=== PATIENT | male | born 1950 | race Caucasian/White ===

== ENCOUNTER 2016-11-29 10:49 | Inpatient (IN) | payer MEDICARE, OTHER ==
[2016-11-29] MEDS ORDERED: methylPREDNISolone 125 MG* 2 ML VIAL IV ONE (10:54)
[2016-11-29] MEDS ORDERED: Albuterol/Ipratropium NEB.SOL* Albuterol 2.5 MG/Ipratropium 0.5 MG 3 ML INH ONE (10:54)
--- NOTE | 2016-11-29 11:20 | RAD ---
INDICATION: Shortness of breath in a patient with COPD COMPARISON: Most recent comparison chest x-rays dated September 18, 2016 TECHNIQUE: Single AP portable view of the chest was obtained. FINDINGS: Image quality is compromised due to the relative inferiority of a portable chest x-ray. Again seen is a left upper chest cardiac pacemaker with 2 leads overlying the heart. The heart and mediastinum exhibit normal size and contour. Relative to the previous chest x-ray the pulmonary vasculature appears mildly engorged and indistinct. There is no evidence of a large pleural effusion. Visualized bones are normal for the patient's age. IMPRESSION: Small interval increase in appearance of engorged pulmonary vasculature could be seen in the setting of exacerbation of congestive heart failure.
[2016-11-29 11:31] LABS: FIO2 100
[2016-11-29 11:35] LABS: PCO2 Arterial 42 mmHg (35-45)
[2016-11-29] MEDS: Diltiazem IV* 5 MG/ML 5 ML VIAL (for loading dose/IV Push) (25 MG) IV SLOW PU ONE ×2 (11:39→14:45)
[2016-11-29 11:50] LABS: Hematocrit 34 % (42-52); Hemoglobin 9.5 g/dl (14.0-18.0); Mean Corpuscular HGB Conc 28 g/dl (31-36); Mean Corpuscular Hemoglobin 19 pg (27-31); Mean Platelet Volume 9 um3 (7.4-10.4); Red Blood Count 5.02 10^6/ul (4.0-5.4); Red Cell Distribution Width 21 % (10.5-15); White Blood Count 7.7 10^3/ul (3.5-10.8)
[2016-11-29 11:51] LABS: Comments Flag Yes
[2016-11-29 11:53] LABS: Mean Corpuscular Volume 68 fL (80-94)
[2016-11-29 11:54] LABS: Albumin 3.8 g/dL (3.2-5.2); BUN/Creatinine Ratio 18.2 (8-20); C Reactive Protein 4.13 mg/L (< 5.00); Calcium 8.7 mg/dL (8.6-10.3); EGFR African American 111.1 (>60); EGFR Non-African American 86.4 (>60); Globulin 2.4 g/dL (2-4); Total Bilirubin 0.7 mg/dL (0.2-1.0); Total Protein 6.2 g/dL (6.4-8.9)
[2016-11-29 11:56] LABS: Troponin I 0.02 ng/mL (<0.04)
[2016-11-29] MEDS ORDERED: Furosemide IV* 10 MG/ML 2 ML VIAL (20 MG) IV ONE (12:01)
[2016-11-29] MEDS ORDERED: Docusate CAP* 100 MG PO PRN (13:53)
[2016-11-29] MEDS ORDERED: Prochlorperazine TAB* 10 MG PO PRN (13:53)
[2016-11-29] MEDS ORDERED: LORazepam TAB(*) 1 MG PO PRN (13:53)
[2016-11-29] MEDS ORDERED: Cyclobenzaprine TAB* 10 MG PO PRN (13:53)
[2016-11-29] MEDS ORDERED: Ondansetron TAB* 4 MG PO PRN (13:53)
--- NOTE | 2016-11-29 13:57 | CONSULT ---
Subjective Date of Service: 11/29/16 Interval History: Date of admission and consult 11/29/2016 Service: Heme/Onc Dr. Whitmore Primary Care Physician: Marcin Watt MD Assembler Bonding: Dr. Cain CC: dyspnea Reason for consult: CHF and AFib HPI Mr. 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 He has been off of revlimid recently. He has had progressive dyspnea and weight gain for about 3 weeks. He has had to go to using oxygen continuous. Device check 11/19/2016 showed more frequent rapid PAfib episodes during that time period. He was evaluated in the ER and found with rapid atrial fibrillation rate 150 bpm. He converted to SR with PAC's after 20 mg IV diltiazem then went back into rapid atrial fibrillation. He had what he describes as a good response to 20 mg IV lasix. His HR is currently back in Afib rate 140 bpm and he has no chest discomfort, lightheadedness and is feeling well. Chronic lower extremity edema. Had been on lasix in the past Allergies: Lyrica 10/12/14 Ibuprofen 10/12/14 allergy list reviewed on 08/27/2016 PMH: Medical Problems: Coronary Artery Disease (CAD) - (09/2013) Afib and a non ST elevation ND in September 2013 and underwent a drug eluting stent placement in the proximal LAD. He had an increase in his weight with peripheral edema, orthopnea. He was sent for a CT scan but couldn't lie flat and was found to be in Afib with a rapid ventricular response and CHF. He was treated with IV Lasix, oxygen and Diltiazem with slowing of his heart and improvement in his symptoms, converted to sinus rhythm, started on Amiodarone because of converting to sinus rhythm. Atrial Fibrillation Diabetes Type II HFpEF GI Bleed - (06/2013) GI bleed in [place] multiple myeloma - (2013) multiple myeloma, undergoing chemotherapy with Dr. Whitmore. Pulmonary Embolism - (06/2016) diagnosed by CT Surgical Hx: Hip Replacement - (10/2014) En[employer]ence [employer]iest[employer] MRI compatible - Dr. Low [facility] [place] 09/05/14 Dual-Chamber: [id number] Serial # [id number] Hospitalizations: Pneumonia - (06/2014) hypotension, respiratory failure, intubation. Afib with rapid ventricular response, NSTEMI. FH: non-contributory SH: Marital: Single.Lives With: Male Partner.Occupation: Disabled. Personal Habits: Smoking: Patient is a former smoker - Quit in June 2012.Alcohol: Denies alcohol use.Drug Use: Denies Drug Use.Daily Caffeine: Does Not Consume Caffeine Medications Active Medications: Amiodarone HCl (Cordarone Tab*) 100 mg PO 0900 [facility] Atorvastatin Calcium (Lipitor*) 10 mg PO QPM [facility] Last Admin: 11/29/16 17:21 Dose: 10 mg Cyclobenzaprine HCl (Flexeril Tab*) 10 mg PO BID PRN PRN Reason: PAIN - BACK Docusate Sodium (Colace Cap*) 200 mg PO BID PRN PRN Reason: CONSTIPATION Furosemide (Lasix Iv*) 40 mg IV BID [facility] Last Admin: 11/29/16 17:54 Dose: 40 mg Glipizide (Glucotrol Xl*) 5 mg PO 0900 [facility] Lorazepam (Ativan Tab(*)) 1 mg PO DAILY PRN PRN Reason: ANXIETY Magnesium Oxide (Magox 400 Tab*) 800 mg PO 0900 [facility] Metformin HCl (Glucophage*) 500 mg PO BID [facility] Metoprolol Succinate (Toprol Xl Tab*) 150 mg PO BID [facility] Last Admin: 11/29/16 17:54 Dose: 150 mg Metoprolol Tartrate (Lopressor Iv*) 5 mg IV Q6H PRN PRN Reason: TACHYCARDIA Ondansetron HCl (Zofran Tab*) 4 mg PO Q8HR PRN PRN Reason: NAUSEA Pantoprazole Sodium (Protonix Tab (Nf)) 40 mg PO 0900 [facility] Pharmacy Profile Note (Coumadin Daily Reminder*) 1 note FOLLOW UP 1700 [facility] Last Admin: 11/29/16 16:31 Dose: 1 note Prochlorperazine (Compazine Tab*) 10 mg PO DAILY PRN PRN Reason: NAUSEA Sertraline HCl (Zoloft*) 100 mg PO 0900 [facility] Valacyclovir HCl (Valtrex 500 Mg (*)) 1,000 mg PO QPM [facility] PRN Reason: Protocol Last Admin: 11/29/16 17:21 Dose: 1,000 mg Warfarin Sodium (Coumadin Tab(*)) 3 mg PO DAILY@1700 [facility] PRN Reason: Protocol Last Admin: 11/29/16 16:30 Dose: 3 mg Home Medications: Pantoprazole TAB (NF) [Protonix TAB (NF)] 40 mg PO 0900 10/23/13 [History Confirmed 11/29/16] Amiodarone TAB* [Cordarone Tab*] 100 mg PO 0900 01/24/14 [History Confirmed ] aspirin Ondansetron TAB* [Zofran Tab*] 4 mg PO Q8HR PRN 01/24/14 [History Confirmed ] Prochlorperazine TAB* [Compazine Tab*] 10 mg PO DAILY PRN 01/24/14 [History Confirmed 11/29/16] ValACYclovir (*) [Valtrex 500 mg (NF)] 1,000 mg PO QPM 01/24/14 [History Confirmed 11/29/16] glipiZIDE TAB.XL* [Glucotrol Xl*] 5 mg PO 0900 01/24/14 [History Confirmed 11/29] metFORMIN* [Glucophage*] 500 mg PO BID 01/24/14 [History Confirmed 11/29/16] Docusate CAP* [Colace Cap*] 200 mg PO BID PRN 03/08/14 [History Confirmed ] Vitamin E CAP* 400 unit PO 0900 06/24/14 [History Confirmed 11/29/16] LORazepam TAB(*) [Ativan 1 MG TAB (*)] 1 mg PO DAILY PRN 09/02/14 [History Confirmed 11/29/16] Calcium 500 mg PO 0900 09/05/14 [History Confirmed 11/29/16] Sertraline* [Zoloft*] 100 mg PO 0900 09/05/14 [History Confirmed 11/29/16] Cyclobenzaprine TAB* [Flexeril 10 MG TAB*] 10 mg PO BID PRN 11/29/16 [History Confirmed 11/29/16] Iron Polysaccharide Complex- [Iferex 150 Forte] 1 cap PO BID 11/29/16 [ History Confirmed 11/29/16] Magnesium 1,000 mg PO 0900 11/29/16 [History Confirmed 07/21/17] Metoprolol Succinate XL TAB* [Toprol XL TAB*] 75 mg PO BID 11/29/16 [History Confirmed 11/29/16] warfarin per Dr. Whitmore Review of Systems - Measurements Intake and Output: Intake and Output Last 24 Hours 11/27/16 11/28/16 11/29/16 11/30/16 06:59 06:59 06:59 06:59 Weight 278 lb - Review of Systems Constitutional Symptoms: Positive: Weight Gain, Fatigue Dermatology: Negative: Rash, Skin Lesions, Skin Lumps HEENT: Negative: Normal, Change in Hearing, Vertigo Eyes: Negative: Change in Vision, Double Vision Thyroid: Positive: Weight Gain Negative: Goiter, Thyroid Nodule, Cold Intolerance, Heat Intolerance, Sweatiness, Tremor, Frequent Defecation, Constipation, Palpitations, Primary Hypothyroidism, Primary Hyperthyroidism, Weight Loss Pulmonary: Positive: Shortness of Breath, Exercise Intolerance, Home Oxygen Negative: Cough, Sputum, Hemoptysis, Wheezing, Respiratory Distress, COPD, Asthma Cardiology: Positive: Shortness of Breath, Swelling of Ankles, Edema Negative: Palpitations, Peripheral Vascular Dis, Faintness, Syncope, Claudication, Paroxysmal Nocturnal Dyspnea, Orthopnea Gastroenterology: Negative: Abdominal Pain, Nausea, Vomiting, Anorexia Genital - Urinary: Negative: Dysuria, Polyuria, Nocturia Musculoskeletal: Negative: Joint Pain, Joint Stiffness, Arthritis Endocrinology: Positive: Obesity Negative: Hyperglycemia, Hypoglycemia, Calluses, Hirsutism, Polydipsia, Polyuria Hematologic/Lymphatic: Positive: Use of Antiplatelet Drugs Negative: Use of Anticoagulant Neurology: Negative: Diplopia, Dizziness, Hx of Stroke\TIA, Hx Seizures Psychiatry: Positive: Weight Change Negative: Unusual Anxiety, Suicidal Ideation Allergic/Immunologic: Negative: Hx Environmental Allergies, Hx Seasonal Allergies, Hx HIV, Immunocompromise, Swollen Glands Lymph Nodes Review of Systems Statement: All other review of systems negative, unless stated above. Objective Vital Signs: Temp Pulse Resp BP Pulse Ox 98 F 95 18 146/70 100 11/29/16 10:56 11/29/16 12:00 11/29/16 12:00 11/29/16 12:00 11/29/16 12:00 Appearance: nad, very pleasant Ears/Nose/Mouth/Throat: Clear Oropharnyx Neck: Trachea Midline, - - uncertain jvp Respiratory: Symmetrical Chest Expansion and Respiratory Effort, Clear to Auscultation Cardiovascular: RRR, - - 1+ edema, 2/6 systolic murmur Abdominal: NL Sounds; No Tenderness; No Distention Extremities: No Clubbing, Cyanosis Skin: No Rash or Ulcers Neurological: Alert and Oriented x 3 Laboratory Results: 11/29/16 11:15 11/29/16 11:15 Total Bilirubin 0.70 mg/dL (0.2-1.0) 11/29/16 11:15 AST 16 U/L (13-39) 11/29/16 11:15 ALT 9 U/L (7-52) 11/29/16 11:15 Alkaline Phosphatase 149 U/L (34-104) H 11/29/16 11:15 CK-MB (CK-2) 1.1 ng/mL (0.6-6.3) 11/29/16 11:15 B-Natriuretic Peptide 482 pg/mL (-100) H 11/29/16 11:15 Total Protein 6.2 g/dL (6.4-8.9) L 11/29/16 11:15 Albumin 3.8 g/dL (3.2-5.2) 11/29/16 11:15 Globulin 2.4 g/dL (2-4) 11/29/16 11:15 Albumin/Globulin Ratio 1.6 (1-3) 11/29/16 11:15 11/29/16 11:15 Troponin I 0.02 Diagnostic Imaging: echocardiogram 08/14/2016, that showed stable mild to moderate aortic stenosis at most, normal left ventricular function with EF 55-60%, grade ll diastolic dysfunction, and concentric hypertrophy of the left ventricle Pacemaker interrogation 11/19/2016: Paroxysmal Afib 11/11-11/19/2016 longest episode 6 hours, kathy success% 55.8, 6 second NSVT cxr today: early vascular congestion EKG Data: ekg 11/29/2016: Rapid atrial fibrilation 148 bpm, minimal rate related st changes 08/27/2016:NSR, LAE Assessment/Plan Mr. 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, multiple myeloma, hx GI bleed , DM, chronic edema and bilateral pulmonary emboli 06/2016 currently on warfarin presents with weight gain and dyspnea accompanied by rapid paroxysmal Afib diagnosed acute diastolic HF exacerbation - Give 40 mg IV lasix BID (ordered), check i/o, weights, uop, bmp, mg replace lytes and adjust diuretics as needed - Increase toprol from 75 to 150 mg PO BID and add 5 mg IV lopressor PRN for rate control - Continue amiodarone 100 mg PO daily - Suspect fluid accumulation pre-dated Afib - If still has intermittent rapid afib despite increased rate control and diuresis may need to consider alternate anti-arrhythmic - Continue warfarin per hematology - Continue statin - Discussed with Dr. Ray who will follow up with patient tomorrow He has been off of revlimid recently. He has had progressive dyspnea and weight gain for about 3 weeks. He has had to go to using oxygen continuous. Device check 11/19/2016 showed more frequent rapid PAfib episodes during that time period. He was evaluated in the ER and found with rapid atrial fibrillation rate 150 bpm. He converted to SR with PAC's after 20 mg IV diltiazem then went back into rapid atrial fibrillation. He had what he describes as a good response to 20 mg IV lasix. His HR is currently back in Afib rate 140 bpm and he has no chest discomfort, lightheadedness and is feeling well. Chronic lower extremity edema. Had been on lasix in the past Allergies: Lyrica 10/12/14 Ibuprofen 10/12/14 allergy list reviewed on 08/27/2016 PMH: Medical Problems: Coronary Artery Disease (CAD) - (09/2013) Afib and a non ST elevation ND in September 2013 and underwent a drug eluting stent placement in the proximal LAD. He had an increase in his weight with peripheral edema, orthopnea. He was sent for a CT scan but couldn't lie flat and was found to be in Afib with a rapid ventricular response and CHF. He was treated with IV Lasix, oxygen and Diltiazem with slowing of his heart and improvement in his symptoms, converted to sinus rhythm, started on Amiodarone because of converting to sinus rhythm. Atrial Fibrillation Diabetes Type II HFpEF
[2016-11-29] MEDS ORDERED: Metoprolol Tartrate IV* 1 MG/ML 5 ML VIAL IV ONE (16:10)
[2016-11-29] MEDS: Warfarin TAB(*) 3 MG PO SCH (16:30)
[2016-11-29 17:13] LABS: Urine Bacteria Absent (Absent); Urine Bilirubin Negative (Negative); Urine Glucose 2+(150 mg/dL) (Negative); Urine Nitrite Negative (Negative)
[2016-11-29] MEDS: ValACYclovir (*) 500 MG TAB PO SCH (17:21)
[2016-11-29] MEDS: Atorvastatin* 10 MG TAB PO SCH (17:21)
[2016-11-29] MEDS: Furosemide IV* 10 MG/ML VIAL (40 MG) IV SCH ×2 (17:54→20:56)
[2016-11-29] MEDS: Metoprolol Succinate XL TAB* 50 MG PO SCH ×2 (17:54→20:56)
[2016-11-29] MEDS ORDERED: Lisinopril TAB* 10 MG PO SCH (18:00)
[2016-11-29] MEDS: Metoprolol Tartrate IV* 1 MG/ML 5 ML VIAL IV PRN (19:29)
--- NOTE | 2016-11-29 20:10 | ED ---
Latasha Contreras Edward, scribed for Alberto Potter MD on 11/29/16 at 1109 . Shortness of Breath - HPI Summary HPI Summary: 66 y/o male BIBA c/o SOB that has become steadily worse for the past 3 days. Patient states he is feeling a little better now. Associated sx: mild CP, nonproductive cough, pitting pedal edema, chills. Denies fever. PMHx DM, AFIB with pacemaker. - History of Current Complaint Chief Complaint: EDAsthma Time Seen by Provider: 11/29/16 10:54 Hx Obtained From: Patient Onset/Duration: Gradual Onset, Lasting Days - 3 days Associated Signs & Symptoms: Cough (Nonproductive), Chest Pain Unrelated to Cough - mild, Chills, Edema - bilateral pedal edema - Allergy/Home Medications Allergies/Adverse Reactions: Allergies Allergy/AdvReac Type Severity Reaction Status Date / Time Ibuprofen Allergy See Comment Verified 01/22/16 17:22 Pregabalin Allergy Swelling Verified 01/22/16 17:22 lyrica Allergy Swelling Uncoded 06/25/16 14:07 Home Medications: Home Medications Cyclobenzaprine TAB* [Flexeril 10 MG TAB*] 10 mg PO BID PRN 11/29/16 [History Confirmed 11/29/16] Iron Polysaccharide Complex- [Iferex 150 Forte] 1 cap PO BID 11/29/16 [ History Confirmed 11/29/16] Lisinopril TAB* [Prinivil TAB*] 10 mg PO QPM 11/29/16 [History Confirmed ] Magnesium 1,000 mg PO 0900 11/29/16 [History Confirmed 11/29/16] Metoprolol Succinate XL TAB* [Toprol XL TAB*] 75 mg PO BID 11/29/16 [History Confirmed 11/29/16] PMH/Surg Hx/FS Hx/Imm Hx Previously Healthy: No Endocrine/Hematology History: Reports: Hx Anticoagulant Therapy, Hx Diabetes, Hx Anemia - HX OF WITH TRANSFUSIONS IN 06/2013, Other Endocrine/Hematological Disorders - multiple myeloma Denies: Hx Thyroid Disease Cardiovascular History: Reports: Hx Congestive Heart Failure, Hx Coronary Artery Disease, Hx Hypertension, Hx Pacemaker/ICD, Hx Syncope, Other Cardiovascular Problems/Disorders - Cardiac cath, dyslipidemia, Respiratory History: Reports: Hx Sleep Apnea - NO CPAP, Other Respiratory Problems/Disorders - HX OF MULTIPLE MYELOMA GI History: Reports: Hx Ulcer - PUD History: Denies: Hx Dialysis, Hx Renal Disease Musculoskeletal History: Reports: Hx Arthritis, Hx Back Problems, Hx Orthopedic Injury - pelvic fracture 01/2014 Sensory History: Reports: Hx Cataracts - RIGHT EYE, Hx Contacts or Glasses - HOME Denies: Hx Deafness, Hx Hearing Aid Opthamlomology History: Reports: Hx Cataracts - RIGHT EYE, Hx Contacts or Glasses - HOME Neurological History: Reports: Other Neuro Impairments/Disorders - HX OF SYNCOPE Psychiatric History: Reports: Hx Anxiety, Hx Depression - anxiety - Cancer History Cancer Type, Location and Year: multiple myeloma Hx Chemotherapy: Yes - last chemo last Friday Hx Radiation Therapy: No Hx Palliative Cancer Treatment: No - Surgical History Surgery Procedure, Year, and Place: cardiac cath/CARDIAC STENT, PACEMAKER, HIP REPLACEMENT Hx Anesthesia Reactions: No - Immunization History Date of Tetanus Vaccine: PT STATES UNSURE Date of Influenza Vaccine: PT STATES UNSURE Infectious Disease History: Yes Infectious Disease History: Reports: Hx of Known/Suspected MRSA - NOSE Denies: Traveled Outside the [place] in Last 30 Days - Family History Known Family History: Positive: Other - mother had circulation problems, father had anginia. - Social History Alcohol Use: Rare Substance Use Type: Reports: None Hx Tobacco Use: Yes Smoking Status (MU): Former Smoker Type: Cigarettes Amount Used/How Often: 1/2 PPD Have You Smoked in the Last Year: No Review of Systems Positive: Chills Eyes: Negative ENT: Negative Positive: Chest Pain - Mild Positive: Shortness Of Breath, Cough Gastrointestinal: Negative Genitourinary: Negative Musculoskeletal: Negative Skin: Negative Neurological: Negative Psychological: Normal All Other Systems Reviewed And Are Negative: Yes Physical Exam - Summary Physical Exam Summary: VITAL SIGNS:~Reviewed. GENERAL:~ Patient is a well-developed and nourished male who is on a BiPAP machine. Patient can speak in full sentences. HEAD AND FACE:~No signs of trauma.~ No ecchymosis, hematomas or skull depressions. No sinus tenderness. EYES:~PERRLA, EOMI x 2, No injected conjunctiva, no nystagmus. EARS:~Hearing grossly intact. Ear canals and tympanic membranes are within normal limits. MOUTH:~Oropharynx within normal limits. NECK:~Supple, trachea is midline, no adenopathy, no JVD, no carotid bruit, no c- spine tenderness, neck with full ROM. CHEST:~Symmetric, no tenderness at palpation LUNGS:~Clear to auscultation bilaterally. Decreased breath sounds bilaterally. Diffuse wheezing. Bilateral crackles at the bases of the lungs. CVS:~Regular rate and rhythm, S1 and S2 present, no murmurs or gallops appreciated. ABDOMEN:~Soft, non-tender. No signs of distention. No rebound no guarding. Bowel sounds are normal. Obese. Positive ventral hernia that is easily reducable. EXTREMITIES:~FROM in all major joints, no cyanosis or clubbing. LE 1+ edema. NEURO:~Alert and oriented x 3. No acute neurological deficits. Speech is normal and follows commands. SKIN:~Dry and warm Triage Information Reviewed: Yes Vital Signs On Initial Exam: Initial Vitals Temp Pulse Resp BP Pulse Ox 97.3 F 61 24 131/88 98 11/29/16 10:50 11/29/16 10:50 11/29/16 10:50 11/29/16 10:50 11/29/16 10:50 Vital Signs Reviewed: Yes Diagnostics - Vital Signs Vital Signs Temp Pulse Resp BP Pulse Ox 11/29/16 10:56 98 F 92 38 164/82 100 11/29/16 10:51 98 F 92 38 159/86 100 11/29/16 10:50 97.3 F 61 24 131/88 98 - Laboratory Result Diagrams: 11/29/16 11:15 11/29/16 11:15 Lab Statement: Any lab studies that have been ordered have been reviewed, and results considered in the medical decision making process. - Radiology CXR Xray Interpretation: Positive (See Comments) - Small interval increase in appearance of engorged pulmonary vasculature could be seen in the setting of exacerbation of congestive heart failure. Radiology Interpretation Completed By: Radiologist - EKG 1 EKG Interpretation: 11:22 - AFIB @ 148 bpm. RVR Course/Dx - Course Assessment/Plan: 66 y/o male BIBA c/o SOB that has become steadily worse for the past 3 days. Patient states he is feeling a little better now. Associated sx : mild CP, nonproductive cough, pitting pedal edema, chills. Denies fever. PMHx DM, AFIB with pacemaker. Test results show slight anemia, Glucose 200 BNP 482, and Lactic acid 2.9, ABD pH 7.5, pCO2 42, pO2 1521, O2 saturation 98 with a BiPAP machine. CXR: a small interval increase in appearance of engorged pulmonary vasculature could be seen in the setting of exacerbation of congestive heart failure. In the ED course the patient had an episode of AFIB with RVR. The patient was given Diltiazem and his HR improved to 70 bpm. The pt continues to be in AFIB which is his baseline. The pt was also given Duoneb and Solumedrol. I believe the patient was having COPD exacerbation and AFIB with RVR. I spoke with Dr. Brown (Oncology) who accepted the pt for admission. The patient is hemodynamically stable, A&Ox3. - Diagnoses Provider Diagnoses: COPD exacerbation, Atrial fibrillation with RVR - Physician Notifications Discussed Care of Patient With: Nilda Amaya Time Discussed With Above Provider: 12:30 Instructed by Provider To: Admit As Inpatient Discharge - Discharge Plan Condition: Stable Disposition: ADMITTED TO [facility] The documentation as recorded by the Latasha wilcox Edward accurately reflects the service I personally performed and the decisions made by me, Alberto Potter MD.
[2016-11-29] MEDS: metFORMIN* 500 MG TAB PO SCH (20:57)
[2016-11-29] MEDS ORDERED: Metoprolol Succinate XL TAB* 25 MG PO SCH (21:00)
[2016-11-30] MEDS: Metoprolol Tartrate IV* 1 MG/ML 5 ML VIAL IV PRN ×2 (01:02→06:37)
[2016-11-30 04:58] LABS: BUN/Creatinine Ratio 21.4 (8-20); Calcium 8.8 mg/dL (8.6-10.3); EGFR African American 84.1 (>60); EGFR Non-African American 65.4 (>60); Magnesium 1.9 mg/dL (1.9-2.7)
[2016-11-30 05:00] LABS: Troponin I 0.03 ng/mL (<0.04)
[2016-11-30] MEDS: Furosemide IV* 10 MG/ML VIAL (40 MG) IV SCH ×2 (08:47→20:15)
[2016-11-30] MEDS: Sertraline* 100 MG TAB PO SCH (08:48)
[2016-11-30] MEDS: CMCS: Pantoprazole TAB (NF) 40 MG TAB PO SCH (08:48)
[2016-11-30] MEDS: metFORMIN* 500 MG TAB PO SCH ×2 (08:48→20:15)
[2016-11-30] MEDS: Magnesium Oxide TAB* 400 MG PO SCH (08:48)
[2016-11-30] MEDS: glipiZIDE TAB.XL* 5 MG PO SCH ×2 (08:49→20:15)
[2016-11-30] MEDS ORDERED: Amiodarone TAB* 200 MG PO SCH (09:00)
[2016-11-30] MEDS ORDERED: glipiZIDE TAB.XL* 5 MG PO SCH (09:00)
--- NOTE | 2016-11-30 09:25 | PN ---
Progress Note - Progress Note Date of Service: 11/30/16 SOAP: Subjective: []A little better today. Does not notice when in a-fib. Has been urinating with Lasix, still feels that has to much fluid. No fevers. Breathing still short and on oxygen. Amiodarone HCl (Cordarone Tab*) 100 mg PO 0900 [facility] Last Admin: 11/30/16 08:43 Dose: 100 mg Atorvastatin Calcium (Lipitor*) 10 mg PO QPM [facility] Last Admin: 11/29/16 17:21 Dose: 10 mg Cyclobenzaprine HCl (Flexeril Tab*) 10 mg PO BID PRN PRN Reason: PAIN - BACK Docusate Sodium (Colace Cap*) 200 mg PO BID PRN PRN Reason: CONSTIPATION Furosemide (Lasix Iv*) 40 mg IV BID [facility] Last Admin: 11/30/16 08:47 Dose: 40 mg Glipizide (Glucotrol Xl*) 5 mg PO BID [facility] Last Admin: 11/30/16 08:49 Dose: Not Given Lorazepam (Ativan Tab(*)) 1 mg PO DAILY PRN PRN Reason: ANXIETY Magnesium Oxide (Magox 400 Tab*) 800 mg PO 0900 [facility] Last Admin: 11/30/16 08:48 Dose: 800 mg Metformin HCl (Glucophage*) 500 mg PO BID [facility] Last Admin: 11/30/16 08:48 Dose: 500 mg Metoprolol Succinate (Toprol Xl Tab*) 150 mg PO BID [facility] Last Admin: 11/29/16 20:56 Dose: 150 mg Metoprolol Tartrate (Lopressor Iv*) 5 mg IV Q6H PRN PRN Reason: TACHYCARDIA Last Admin: 11/30/16 06:37 Dose: 5 mg Ondansetron HCl (Zofran Tab*) 4 mg PO Q8HR PRN PRN Reason: NAUSEA Pantoprazole Sodium (Protonix Tab (Nf)) 40 mg PO 0900 [facility] Last Admin: 11/30/16 08:48 Dose: 40 mg Pharmacy Profile Note (Coumadin Daily Reminder*) 1 note FOLLOW UP 1700 [facility] Last Admin: 11/29/16 16:31 Dose: 1 note Prochlorperazine (Compazine Tab*) 10 mg PO DAILY PRN PRN Reason: NAUSEA Sertraline HCl (Zoloft*) 100 mg PO 0900 [facility] Last Admin: 11/30/16 08:48 Dose: 100 mg Valacyclovir HCl (Valtrex 500 Mg (*)) 1,000 mg PO QPM [facility] PRN Reason: Protocol Last Admin: 11/29/16 17:21 Dose: 1,000 mg Warfarin Sodium (Coumadin Tab(*)) 3 mg PO DAILY@1700 [facility] PRN Reason: Protocol Last Admin: 11/29/16 16:30 Dose: 3 mg Objective: [] Vital Signs Temp Pulse Resp BP Pulse Ox 97.7 F 139 18 121/70 99 11/30/16 07:34 11/30/16 07:34 11/30/16 07:34 11/30/16 07:34 11/30/16 07:34 HEENT - Pale, no oral lesions. SOB in conversation. Decreased BS, no wheezing. RRR and 88 on exam. S1S2 Obease, NT ND Ext +1 edema Neuro AAOx3 gross non focal Assessment: []66 year old with history of myeloma who has responded well to therapy but treatment held in September of this year after several infections. Presents with intermittent a-fib and RVR, CHF Plan: []1. Increase of Metoprolol but still with HR to 142 this am when in a-fib. Will discuss with cardiology. 2. Continued diuresis today and follow BP and CR, Lasix 40 mg po bid. 3. Coumadin, follow INR daily 4. Will plan on staying in house today, possible discharge tomorrow.
[2016-11-30] MEDS: Metoprolol Succinate XL TAB* 50 MG PO SCH ×2 (11:06→20:15)
[2016-11-30 12:12] LABS: BUN/Creatinine Ratio 22.7 (8-20); EGFR African American 72.1 (>60); EGFR Non-African American 56.1 (>60); Potassium 3.7 mmol/L (3.5-5.0)
--- NOTE | 2016-11-30 13:32 | PN ---
Subjective Date of Service: 11/30/16 - SOB is CC Interval History: Pt awoke with a panic attack, responded to IV lopressor (in afib, RVR). Breathing has improved overall since admission. The patient remains unaware when he is in atrial fibrillation. Prior to admission he was having some chest pain, none since admission with diuresis. Medications Active Medications: Amiodarone HCl (Cordarone Tab*) 100 mg PO 0900 [facility] Last Admin: 11/30/16 08:43 Dose: 100 mg Atorvastatin Calcium (Lipitor*) 10 mg PO QPM [facility] Last Admin: 11/29/16 17:21 Dose: 10 mg Cyclobenzaprine HCl (Flexeril Tab*) 10 mg PO BID PRN PRN Reason: PAIN - BACK Docusate Sodium (Colace Cap*) 200 mg PO BID PRN PRN Reason: CONSTIPATION Furosemide (Lasix Iv*) 40 mg IV BID [facility] Last Admin: 11/30/16 08:47 Dose: 40 mg Glipizide (Glucotrol Xl*) 5 mg PO BID [facility] Last Admin: 11/30/16 08:49 Dose: Not Given Lorazepam (Ativan Tab(*)) 1 mg PO DAILY PRN PRN Reason: ANXIETY Magnesium Oxide (Magox 400 Tab*) 800 mg PO 0900 [facility] Last Admin: 11/30/16 08:48 Dose: 800 mg Metformin HCl (Glucophage*) 500 mg PO BID [facility] Last Admin: 11/30/16 08:48 Dose: 500 mg Metoprolol Succinate (Toprol Xl Tab*) 150 mg PO BID [facility] Last Admin: 11/30/16 11:06 Dose: 150 mg Metoprolol Tartrate (Lopressor Iv*) 5 mg IV Q6H PRN PRN Reason: TACHYCARDIA Last Admin: 11/30/16 06:37 Dose: 5 mg Ondansetron HCl (Zofran Tab*) 4 mg PO Q8HR PRN PRN Reason: NAUSEA Pantoprazole Sodium (Protonix Tab (Nf)) 40 mg PO 0900 [facility] Last Admin: 11/30/16 08:48 Dose: 40 mg Pharmacy Profile Note (Coumadin Daily Reminder*) 1 note FOLLOW UP 1700 [facility] Last Admin: 11/29/16 16:31 Dose: 1 note Prochlorperazine (Compazine Tab*) 10 mg PO DAILY PRN PRN Reason: NAUSEA Sertraline HCl (Zoloft*) 100 mg PO 0900 [facility] Last Admin: 11/30/16 08:48 Dose: 100 mg Valacyclovir HCl (Valtrex 500 Mg (*)) 1,000 mg PO QPM [facility] PRN Reason: Protocol Last Admin: 11/29/16 17:21 Dose: 1,000 mg Warfarin Sodium (Coumadin Tab(*)) 3 mg PO DAILY@1700 [facility] PRN Reason: Protocol Last Admin: 11/29/16 16:30 Dose: 3 mg Objective Vital Signs: Temp Pulse Resp BP Pulse Ox 98.3 F 79 77 125/56 100 11/30/16 11:29 11/30/16 11:29 11/30/16 12:00 11/30/16 11:29 11/30/16 11:29 Oxygen Devices in Use Now: Nasal Cannula Appearance: nad, seated with O2 on, very pleasant Eyes: No Scleral Icterus, PERRLA Ears/Nose/Mouth/Throat: Clear Oropharnyx, Mucous Membranes Moist Neck: Trachea Midline, - - uncertain jvp Respiratory: Symmetrical Chest Expansion and Respiratory Effort, - - bs very distant t hroughout. Cardiovascular: RRR, - - 1+ edema, 2/6 systolic murmur Abdominal: NL Sounds; No Tenderness; No Distention - obese. Extremities: No Clubbing, Cyanosis Skin: No Rash or Ulcers Neurological: Alert and Oriented x 3 Lines/Tubes/Other Access: Clean, Dry and Intact Peripheral IV Laboratory Results: 11/30/16 11:48 INR (Anticoag Therapy) 2.18 (0.89-1.11) H 11/30/16 11:48 Total Bilirubin 0.70 mg/dL (0.2-1.0) 11/29/16 11:15 AST 16 U/L (13-39) 11/29/16 11:15 ALT 9 U/L (7-52) 11/29/16 11:15 Alkaline Phosphatase 149 U/L (34-104) H 11/29/16 11:15 CK-MB (CK-2) 1.1 ng/mL (0.6-6.3) 11/29/16 11:15 B-Natriuretic Peptide 779 pg/mL (-100) H 11/30/16 04:04 Total Protein 6.2 g/dL (6.4-8.9) L 11/29/16 11:15 Albumin 3.8 g/dL (3.2-5.2) 11/29/16 11:15 Globulin 2.4 g/dL (2-4) 11/29/16 11:15 Albumin/Globulin Ratio 1.6 (1-3) 11/29/16 11:15 11/30/16 04:02 Troponin I 0.03 Diagnostic Imaging: echocardiogram 08/14/2016, that showed stable mild to moderate aortic stenosis at most, normal left ventricular function with EF 55-60%, grade ll diastolic dysfunction, and concentric hypertrophy of the left ventricle Pacemaker interrogation 11/19/2016: Paroxysmal Afib 11/11-11/19/2016 longest episode 6 hours, kathy success% 55.8, 6 second NSVT cxr today: early vascular congestion EKG Data: Monitor: in and out of afib, when in afib, RVR Assessment/Plan Mr. 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 CP is likely due to afib/CHF, normal troponins are reassuring. Distant breath sounds and hx smoking until 5 years ago raises additional possibility of COPD as another contribution to breathing issues, need for continous 02 and at risk for amiodarone toxicity in the lungs. Needs outpatient DLCO if not checked w/in the recent past. Consider stopping amiodarone, adding Sotalol and decreasing metoprolol. Continue coumodin.
[2016-11-30] MEDS: Atorvastatin* 10 MG TAB PO SCH (16:58)
[2016-11-30] MEDS: Warfarin TAB(*) 3 MG PO SCH (16:58)
[2016-11-30] MEDS: ValACYclovir (*) 500 MG TAB PO SCH (16:58)
[2016-11-30] MEDS: Sotalol TAB* 80 MG PO SCH ×2 (18:51→20:15)
[2016-12-01] MEDS: Metoprolol Tartrate IV* 1 MG/ML 5 ML VIAL IV PRN (03:14)
[2016-12-01 05:30] LABS: Hematocrit 31 % (42-52); Mean Corpuscular HGB Conc 29 g/dl (31-36); Mean Corpuscular Hemoglobin 19 pg (27-31); Mean Platelet Volume 9 um3 (7.4-10.4); Red Blood Count 4.63 10^6/ul (4.0-5.4); Red Cell Distribution Width 21 % (10.5-15); White Blood Count 8.4 10^3/ul (3.5-10.8)
[2016-12-01 05:39] LABS: BUN/Creatinine Ratio 32.5 (8-20); Calcium 8.5 mg/dL (8.6-10.3); EGFR African American 75.5 (>60); EGFR Non-African American 58.7 (>60); Potassium 3.5 mmol/L (3.5-5.0)
[2016-12-01 05:45] LABS: Comments Flag Yes; Mean Corpuscular Volume 66 fL (80-94)
[2016-12-01] MEDS: Furosemide IV* 10 MG/ML VIAL (40 MG) IV SCH (08:23)
[2016-12-01] MEDS: Sertraline* 100 MG TAB PO SCH (08:24)
[2016-12-01] MEDS: Metoprolol Succinate XL TAB* 50 MG PO SCH (08:24)
[2016-12-01] MEDS: Magnesium Oxide TAB* 400 MG PO SCH (08:24)
[2016-12-01] MEDS: glipiZIDE TAB.XL* 5 MG PO SCH ×2 (08:24→20:29)
[2016-12-01] MEDS: metFORMIN* 500 MG TAB PO SCH ×2 (08:24→20:29)
[2016-12-01] MEDS: CMCS: Pantoprazole TAB (NF) 40 MG TAB PO SCH (08:24)
[2016-12-01] MEDS: Sotalol TAB* 80 MG PO SCH ×2 (08:24→20:29)
[2016-12-01] MEDS ORDERED: Furosemide IV* 10 MG/ML VIAL (40 MG) IV SCH (09:00)
--- NOTE | 2016-12-01 09:49 | PN ---
Subjective Date of Service: 12/01/16 - CC: in/out afib Interval History: Continues to be in and out of atrial fibrillation with sotalol. BP elevated on lower metoprolol dose. Breathiing is better, he did not wake up this AM feeling panicky as he has recently. Medications Active Medications: Atorvastatin Calcium (Lipitor*) 10 mg PO QPM [facility] Last Admin: 11/30/16 16:58 Dose: 10 mg Carvedilol (Coreg Tab*) 25 mg PO BID [facility] Cyclobenzaprine HCl (Flexeril Tab*) 10 mg PO BID PRN PRN Reason: PAIN - BACK Docusate Sodium (Colace Cap*) 200 mg PO BID PRN PRN Reason: CONSTIPATION Furosemide (Lasix Iv*) 40 mg IV DAILY [facility] Glipizide (Glucotrol Xl*) 5 mg PO BID [facility] Last Admin: 12/01/16 08:24 Dose: 5 mg Lorazepam (Ativan Tab(*)) 1 mg PO DAILY PRN PRN Reason: ANXIETY Magnesium Oxide (Magox 400 Tab*) 800 mg PO 0900 [facility] Last Admin: 12/01/16 08:24 Dose: 800 mg Metformin HCl (Glucophage*) 500 mg PO BID [facility] Last Admin: 12/01/16 08:24 Dose: 500 mg Metoprolol Tartrate (Lopressor Iv*) 5 mg IV Q6H PRN PRN Reason: TACHYCARDIA Last Admin: 12/01/16 03:14 Dose: 5 mg Ondansetron HCl (Zofran Tab*) 4 mg PO Q8HR PRN PRN Reason: NAUSEA Pantoprazole Sodium (Protonix Tab (Nf)) 40 mg PO 0900 [facility] Last Admin: 12/01/16 08:24 Dose: 40 mg Pharmacy Profile Note (Coumadin Daily Reminder*) 1 note FOLLOW UP 1700 [facility] Last Admin: 11/30/16 16:59 Dose: 1 note Prochlorperazine (Compazine Tab*) 10 mg PO DAILY PRN PRN Reason: NAUSEA Sertraline HCl (Zoloft*) 100 mg PO 0900 [facility] Last Admin: 12/01/16 08:24 Dose: 100 mg Sotalol HCl (Betapace Tab*) 80 mg PO BID [facility] Last Admin: 12/01/16 08:24 Dose: 80 mg Valacyclovir HCl (Valtrex 500 Mg (*)) 1,000 mg PO QPM [facility] PRN Reason: Protocol Last Admin: 11/30/16 16:58 Dose: 1,000 mg Warfarin Sodium (Coumadin Tab(*)) 3 mg PO DAILY@1700 [facility] PRN Reason: Protocol Last Admin: 11/30/16 16:58 Dose: 3 mg Objective Vital Signs: Temp Pulse Resp BP Pulse Ox 97.4 F 87 18 161/83 100 12/01/16 07:33 12/01/16 07:33 12/01/16 07:33 12/01/16 07:33 12/01/16 07:33 Oxygen Devices in Use Now: Nasal Cannula Appearance: Lying at 30 degrees, sleeping, appears comfortable. Eyes: No Scleral Icterus, PERRLA Ears/Nose/Mouth/Throat: Clear Oropharnyx, Mucous Membranes Moist Neck: Trachea Midline, - - uncertain jvp Respiratory: Symmetrical Chest Expansion and Respiratory Effort, - - bs louder today, moving air better, new fine wheezing. Cardiovascular: RRR, - - 2/6 systolic murmur mid to late peaking USB. Abdominal: NL Sounds; No Tenderness; No Distention - obese. Extremities: No Clubbing, Cyanosis, - - trace edema. Skin: No Rash or Ulcers Neurological: Alert and Oriented x 3 Lines/Tubes/Other Access: Clean, Dry and Intact Peripheral IV Laboratory Results: 12/01/16 04:56 12/01/16 04:56 INR (Anticoag Therapy) 2.52 (0.89-1.11) H 12/01/16 04:56 Total Bilirubin 0.70 mg/dL (0.2-1.0) 11/29/16 11:15 AST 16 U/L (13-39) 11/29/16 11:15 ALT 9 U/L (7-52) 11/29/16 11:15 Alkaline Phosphatase 149 U/L (34-104) H 11/29/16 11:15 CK-MB (CK-2) 1.1 ng/mL (0.6-6.3) 11/29/16 11:15 B-Natriuretic Peptide 779 pg/mL (-100) H 11/30/16 04:04 Total Protein 6.2 g/dL (6.4-8.9) L 11/29/16 11:15 Albumin 3.8 g/dL (3.2-5.2) 11/29/16 11:15 Globulin 2.4 g/dL (2-4) 11/29/16 11:15 Albumin/Globulin Ratio 1.6 (1-3) 11/29/16 11:15 11/30/16 04:02 Troponin I 0.03 Diagnostic Imaging: echocardiogram 08/14/2016, that showed stable mild to moderate aortic stenosis at most, normal left ventricular function with EF 55-60%, grade ll diastolic dysfunction, and concentric hypertrophy of the left ventricle Monitor: in and out of paroxysmal atrial fibrillation. ECG 12/01/16: NSR, QT prolonged. EKG Data: Monitor: in and out of afib, when in afib, RVR Assessment/Plan Mr. 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 In/out atrial fibrillation, rate a bit more controlled. Seems to have increased air movement with lower beta milton. BP elevated on lower doses of metoprolol. BUN rising on aggressive diereses. Overall improving, feels better. BP: convert metoprolol XL to Coreg. PAF: continue coumodin. Stay off amiodarone Continue sotalol loading on monitor, follow QTc via ECG. SOB: Consider outpt DLCO. Renal Insufficieny: Back off diuretics Will likely need some outpatient diurectics, can use weights to titrate.
--- NOTE | 2016-12-01 11:43 | PN ---
Subjective Date of Service: 12/01/16 Interval History: Mr. Ferreira states that he is feeling well today. He feels that his SOB has improved significantly since arrival. He denies other complaint including chest pain, SOB, palpitations, nausea, or abdominal pain. Objective Active Medications: Atorvastatin Calcium (Lipitor*) 10 mg PO QPM [facility] Carvedilol (Coreg Tab*) 25 mg PO BID [facility] Cyclobenzaprine HCl (Flexeril Tab*) 10 mg PO BID PRN Docusate Sodium (Colace Cap*) 200 mg PO BID PRN Furosemide (Lasix Iv*) 40 mg IV DAILY [facility] Glipizide (Glucotrol Xl*) 5 mg PO BID [facility] Lorazepam (Ativan Tab(*)) 1 mg PO DAILY PRN Magnesium Oxide (Magox 400 Tab*) 800 mg PO 0900 [facility] Metformin HCl (Glucophage*) 500 mg PO BID [facility] Metoprolol Tartrate (Lopressor Iv*) 5 mg IV Q6H PRN Ondansetron HCl (Zofran Tab*) 4 mg PO Q8HR PRN Pantoprazole Sodium (Protonix Tab (Nf)) 40 mg PO 0900 [facility] Pharmacy Profile Note (Coumadin Daily Reminder*) 1 note FOLLOW UP 1700 [facility] Prochlorperazine (Compazine Tab*) 10 mg PO DAILY PRN Sertraline HCl (Zoloft*) 100 mg PO 0900 [facility] Sotalol HCl (Betapace Tab*) 80 mg PO BID [facility] Valacyclovir HCl (Valtrex 500 Mg (*)) 1,000 mg PO QPM [facility] Warfarin Sodium (Coumadin Tab(*)) 3 mg PO DAILY@1700 [facility] Vital Signs 11/30/16 11/30/16 11/30/16 11:40 11:50 12:00 Temperature Pulse Rate Respiratory 29 61 77 Rate Blood Pressure (mmHg) O2 Sat by Pulse Oximetry 11/30/16 11/30/16 11/30/16 12:10 12:20 12:30 Temperature Pulse Rate Respiratory 30 22 16 Rate Blood Pressure (mmHg) O2 Sat by Pulse Oximetry 11/30/16 11/30/16 11/30/16 12:40 12:50 13:00 Temperature Pulse Rate Respiratory 25 15 30 Rate Blood Pressure (mmHg) O2 Sat by Pulse Oximetry 11/30/16 11/30/16 11/30/16 13:10 13:20 13:30 Temperature Pulse Rate Respiratory 28 20 23 Rate Blood Pressure (mmHg) O2 Sat by Pulse Oximetry 11/30/16 11/30/16 11/30/16 13:40 13:50 14:00 Temperature Pulse Rate Respiratory 25 27 25 Rate Blood Pressure (mmHg) O2 Sat by Pulse Oximetry 11/30/16 11/30/16 11/30/16 14:10 14:20 14:30 Temperature Pulse Rate Respiratory 18 21 26 Rate Blood Pressure (mmHg) O2 Sat by Pulse Oximetry 11/30/16 11/30/16 11/30/16 14:40 14:50 15:00 Temperature Pulse Rate Respiratory 19 24 24 Rate Blood Pressure (mmHg) O2 Sat by Pulse Oximetry 11/30/16 11/30/16 11/30/16 15:10 15:20 15:30 Temperature Pulse Rate Respiratory 26 26 21 Rate Blood Pressure (mmHg) O2 Sat by Pulse Oximetry 11/30/16 11/30/16 11/30/16 15:40 15:47 15:50 Temperature 97.4 F Pulse Rate 76 Respiratory 31 16 25 Rate Blood Pressure 134/69 (mmHg) O2 Sat by Pulse 100 Oximetry 11/30/16 11/30/16 11/30/16 16:00 16:10 16:20 Temperature Pulse Rate Respiratory 15 24 22 Rate Blood Pressure (mmHg) O2 Sat by Pulse Oximetry 11/30/16 11/30/16 11/30/16 16:30 16:40 16:50 Temperature Pulse Rate Respiratory 22 13 21 Rate Blood Pressure (mmHg) O2 Sat by Pulse Oximetry 11/30/16 11/30/16 11/30/16 17:00 17:10 17:20 Temperature Pulse Rate Respiratory 19 12 22 Rate Blood Pressure (mmHg) O2 Sat by Pulse Oximetry 11/30/16 11/30/16 11/30/16 17:30 17:40 17:50 Temperature Pulse Rate Respiratory 18 30 26 Rate Blood Pressure (mmHg) O2 Sat by Pulse Oximetry 11/30/16 11/30/16 11/30/16 18:00 18:10 18:20 Temperature Pulse Rate Respiratory 30 28 24 Rate Blood Pressure (mmHg) O2 Sat by Pulse Oximetry 11/30/16 11/30/16 11/30/16 18:30 18:40 18:50 Temperature Pulse Rate Respiratory 27 26 26 Rate Blood Pressure (mmHg) O2 Sat by Pulse Oximetry 11/30/16 11/30/16 11/30/16 19:00 19:10 19:20 Temperature Pulse Rate Respiratory 28 16 27 Rate Blood Pressure (mmHg) O2 Sat by Pulse Oximetry 11/30/16 11/30/16 11/30/16 19:30 19:33 19:40 Temperature 97.3 F Pulse Rate 79 Respiratory 15 16 12 Rate Blood Pressure 120/64 (mmHg) O2 Sat by Pulse 100 Oximetry 11/30/16 11/30/16 11/30/16 19:50 20:00 20:07 Temperature Pulse Rate Respiratory 28 26 25 Rate Blood Pressure (mmHg) O2 Sat by Pulse Oximetry 11/30/16 11/30/16 11/30/16 20:10 20:20 20:30 Temperature Pulse Rate Respiratory 24 26 25 Rate Blood Pressure (mmHg) O2 Sat by Pulse Oximetry 11/30/16 11/30/16 11/30/16 20:40 20:50 21:00 Temperature Pulse Rate Respiratory 22 25 28 Rate Blood Pressure (mmHg) O2 Sat by Pulse Oximetry 11/30/16 11/30/16 11/30/16 21:10 21:20 21:30 Temperature Pulse Rate Respiratory 25 13 28 Rate Blood Pressure (mmHg) O2 Sat by Pulse Oximetry 11/30/16 11/30/16 11/30/16 21:40 21:50 22:00 Temperature Pulse Rate Respiratory 26 20 17 Rate Blood Pressure (mmHg) O2 Sat by Pulse Oximetry 11/30/16 11/30/16 11/30/16 22:10 22:20 22:30 Temperature Pulse Rate Respiratory 20 18 20 Rate Blood Pressure (mmHg) O2 Sat by Pulse Oximetry 11/30/16 11/30/16 11/30/16 22:40 22:50 23:00 Temperature Pulse Rate Respiratory 5 24 21 Rate Blood Pressure (mmHg) O2 Sat by Pulse Oximetry 11/30/16 11/30/16 11/30/16 23:10 23:20 23:30 Temperature Pulse Rate Respiratory 20 22 21 Rate Blood Pressure (mmHg) O2 Sat by Pulse Oximetry 11/30/16 11/30/16 11/30/16 23:34 23:40 23:50 Temperature 98.1 F Pulse Rate 66 Respiratory 18 20 17 Rate Blood Pressure 120/64 (mmHg) O2 Sat by Pulse 100 Oximetry 12/01/16 12/01/16 12/01/16 00:00 00:10 00:20 Temperature Pulse Rate Respiratory 22 19 22 Rate Blood Pressure (mmHg) O2 Sat by Pulse Oximetry 12/01/16 12/01/16 12/01/16 00:30 00:40 00:50 Temperature Pulse Rate Respiratory 22 22 21 Rate Blood Pressure (mmHg) O2 Sat by Pulse Oximetry 12/01/16 12/01/16 12/01/16 01:00 01:10 01:20 Temperature Pulse Rate Respiratory 16 18 26 Rate Blood Pressure (mmHg) O2 Sat by Pulse Oximetry 12/01/16 12/01/16 12/01/16 01:30 01:40 01:50 Temperature Pulse Rate Respiratory 17 22 21 Rate Blood Pressure (mmHg) O2 Sat by Pulse Oximetry 12/01/16 12/01/16 12/01/16 02:00 02:10 02:20 Temperature Pulse Rate Respiratory 20 22 18 Rate Blood Pressure (mmHg) O2 Sat by Pulse Oximetry 12/01/16 12/01/16 12/01/16 02:30 02:40 02:50 Temperature Pulse Rate Respiratory 20 20 14 Rate Blood Pressure (mmHg) O2 Sat by Pulse Oximetry 12/01/16 12/01/16 12/01/16 03:00 03:10 03:20 Temperature Pulse Rate Respiratory 23 22 12 Rate Blood Pressure (mmHg) O2 Sat by Pulse Oximetry 12/01/16 12/01/16 12/01/16 03:28 03:30 03:40 Temperature 97.7 F Pulse Rate 85 Respiratory 20 21 20 Rate Blood Pressure 110/74 (mmHg) O2 Sat by Pulse 99 Oximetry 12/01/16 12/01/16 12/01/16 03:50 04:00 04:10 Temperature Pulse Rate Respiratory 16 32 22 Rate Blood Pressure (mmHg) O2 Sat by Pulse Oximetry 12/01/16 12/01/16 12/01/16 04:20 04:30 04:40 Temperature Pulse Rate Respiratory 23 22 18 Rate Blood Pressure (mmHg) O2 Sat by Pulse Oximetry 12/01/16 12/01/16 12/01/16 04:50 05:00 05:10 Temperature Pulse Rate Respiratory 28 17 18 Rate Blood Pressure (mmHg) O2 Sat by Pulse Oximetry 12/01/16 12/01/16 12/01/16 05:20 05:30 05:40 Temperature Pulse Rate Respiratory 21 21 21 Rate Blood Pressure (mmHg) O2 Sat by Pulse Oximetry 12/01/16 12/01/16 12/01/16 05:50 06:00 06:10 Temperature Pulse Rate Respiratory 20 20 20 Rate Blood Pressure (mmHg) O2 Sat by Pulse Oximetry 12/01/16 12/01/16 12/01/16 06:20 06:30 06:40 Temperature Pulse Rate Respiratory 17 30 27 Rate Blood Pressure (mmHg) O2 Sat by Pulse Oximetry 12/01/16 12/01/16 12/01/16 06:50 07:00 07:10 Temperature Pulse Rate Respiratory 22 21 22 Rate Blood Pressure (mmHg) O2 Sat by Pulse Oximetry 12/01/16 12/01/16 12/01/16 07:20 07:30 07:33 Temperature 97.4 F Pulse Rate 87 Respiratory 22 12 18 Rate Blood Pressure 161/83 (mmHg) O2 Sat by Pulse 100 Oximetry 12/01/16 10:04 Temperature Pulse Rate Respiratory Rate Blood Pressure 124/80 (mmHg) O2 Sat by Pulse Oximetry Oxygen Devices in Use Now: Nasal Cannula Appearance: Male lying in bed in NAD Eyes: No Scleral Icterus Ears/Nose/Mouth/Throat: Mucous Membranes Moist Neck: Trachea Midline Respiratory: Symmetrical Chest Expansion and Respiratory Effort, Clear to Auscultation Cardiovascular: NL Sounds; No Murmurs; No JVD, - - +1 edema Abdominal: NL Sounds; No Tenderness; No Distention Lymphatic: No Cervical Adenopathy Extremities: - - +1 edema Skin: No Rash or Ulcers Neurological: Alert and Oriented x 3, NL Muscle Strength and Tone Nutrition: Taking PO's Result Diagrams: 12/01/16 04:56 12/01/16 04:56 Microbiology and Other Data: Microbiology 11/30/16 18:50 Gram Stain - Final Sputum 11/29/16 14:30 Nasal Screen MRSA (PCR)(LESLY) - Final Nasal Mrsa Negative Assess/Plan/Problems-Billing Assessment: Mr. Ferreira is a 66 yo male with a PMH of multiple myeloma, DM, CAD, paroxysmal afib, tachy-martha syndrome s/p pacemaker, and PEs x 2 on chronic warfarin therapy who was admitted on 11/29/16 with afib and CHF. - Patient Problems (1) Atrial fibrillation Comment: - Currently rate controlled but continues to be in and out of afib. - Appreciate cardiology consult. Continue sotalol (new this admission), amiodarone d/c'd. Plan to switch from metoprolol to coreg. - Continue warfarin with therapeutic INR. (2) CHF (congestive heart failure) Comment: - Acute diastolic HF, likely related to uncontrolled afib. - Lasix reduced due to rising creatinine. (3) HTN (hypertension) Comment: - SBP's 110s. - Now on carvedilol, lasix. (4) Multiple myeloma Comment: - No longer on treatment due to multiple recent infections. - Management per oncology. (5) CAD (coronary artery disease) Comment: - s/p stent placement in 2013. Continue aspirin, plavix and carvedilol. (6) Diabetes mellitus type 2, noninsulin dependent Comment: - BGs 60-200. - Continue metformin and glyburide per oncology team (attending) (7) COPD (chronic obstructive pulmonary disease) Comment: - Stable. - Continue albuterol PRN. (8) Chronic kidney disease (CKD) Comment: - BUN/Cr rising with diuresis. - Decrease lasix and recheck labs in AM.appears to be at baseline. (9) Depression Comment: - Continue sertraline. (10) HLD (hyperlipidemia) Comment: - Continue atorvastatin. (11) PUD (peptic ulcer disease) Comment: - Continue pantoprazole. - No NSAIDS. Hx of GI bleed secondary to NSAIDs. (12) DVT prophylaxis Comment: - Coumadin with therapeutic INR. (13) Full code status Status and Disposition: Inpatient. Anticipate discharge to home when medically stable.
[2016-12-01] MEDS: Atorvastatin* 10 MG TAB PO SCH (16:42)
[2016-12-01] MEDS: Warfarin TAB(*) 3 MG PO SCH (16:42)
[2016-12-01] MEDS: ValACYclovir (*) 500 MG TAB PO SCH (16:42)
[2016-12-01] MEDS: Carvedilol TAB* 25 MG PO SCH (20:29)
[2016-12-02 06:07] LABS: BUN/Creatinine Ratio 29.9 (8-20); Calcium 8.1 mg/dL (8.6-10.3); EGFR Non-African American 62.2 (>60); Potassium 3.4 mmol/L (3.5-5.0)
[2016-12-02] MEDS: Sotalol TAB* 80 MG PO SCH (07:27)
[2016-12-02] MEDS: Magnesium Oxide TAB* 400 MG PO SCH (07:27)
[2016-12-02] MEDS: Sertraline* 100 MG TAB PO SCH (07:27)
[2016-12-02] MEDS: metFORMIN* 500 MG TAB PO SCH ×2 (07:28→21:50)
[2016-12-02] MEDS: Furosemide IV* 10 MG/ML VIAL (40 MG) IV SCH (07:28)
[2016-12-02] MEDS: Carvedilol TAB* 25 MG PO SCH ×2 (07:28→21:51)
[2016-12-02] MEDS: glipiZIDE TAB.XL* 5 MG PO SCH ×2 (07:28→21:50)
[2016-12-02] MEDS: CMCS: Pantoprazole TAB (NF) 40 MG TAB PO SCH (07:28)
[2016-12-02 07:33] LABS: Magnesium 1.9 mg/dL (1.9-2.7)
--- NOTE | 2016-12-02 10:33 | PN ---
Progress Note - Progress Note Date of Service: 12/02/16 SOAP: Subjective: []Feeling better. Breathing is better but still not great. Wondering if heart will ever get better. No chest pain or palpitations. Walking in room but not around floor. Atorvastatin Calcium (Lipitor*) 10 mg PO QPM [facility] Last Admin: 12/01/16 16:42 Dose: 10 mg Carvedilol (Coreg Tab*) 25 mg PO BID [facility] Last Admin: 12/02/16 07:28 Dose: 25 mg Cyclobenzaprine HCl (Flexeril Tab*) 10 mg PO BID PRN PRN Reason: PAIN - BACK Docusate Sodium (Colace Cap*) 200 mg PO BID PRN PRN Reason: CONSTIPATION Furosemide (Lasix Iv*) 40 mg IV DAILY [facility] Last Admin: 12/02/16 07:28 Dose: 40 mg Glipizide (Glucotrol Xl*) 5 mg PO BID [facility] Last Admin: 12/02/16 07:28 Dose: 5 mg Lorazepam (Ativan Tab(*)) 1 mg PO DAILY PRN PRN Reason: ANXIETY Magnesium Oxide (Magox 400 Tab*) 800 mg PO 0900 [facility] Last Admin: 12/02/16 07:27 Dose: 800 mg Metformin HCl (Glucophage*) 500 mg PO BID [facility] Last Admin: 12/02/16 07:28 Dose: 500 mg Metoprolol Tartrate (Lopressor Iv*) 5 mg IV Q6H PRN PRN Reason: TACHYCARDIA Last Admin: 12/01/16 03:14 Dose: 5 mg Ondansetron HCl (Zofran Tab*) 4 mg PO Q8HR PRN PRN Reason: NAUSEA Pantoprazole Sodium (Protonix Tab (Nf)) 40 mg PO 0900 [facility] Last Admin: 12/02/16 07:28 Dose: 40 mg Pharmacy Profile Note (Coumadin Daily Reminder*) 1 note FOLLOW UP 1700 [facility] Last Admin: 12/01/16 16:42 Dose: 1 note Prochlorperazine (Compazine Tab*) 10 mg PO DAILY PRN PRN Reason: NAUSEA Sertraline HCl (Zoloft*) 100 mg PO 0900 [facility] Last Admin: 12/02/16 07:27 Dose: 100 mg Valacyclovir HCl (Valtrex 500 Mg (*)) 1,000 mg PO QPM [facility] PRN Reason: Protocol Last Admin: 12/01/16 16:42 Dose: 1,000 mg Warfarin Sodium (Coumadin Tab(*)) 3 mg PO DAILY@1700 [facility] PRN Reason: Protocol Last Admin: 12/01/16 16:42 Dose: 3 mg Objective: [] Vital Signs Temp Pulse Resp BP Pulse Ox 98.5 F 72 31 141/78 96 12/02/16 07:10 12/02/16 07:10 12/02/16 08:40 12/02/16 07:10 12/02/16 07:10 Telemetry: Coninued a-fib with HR 150 - 175 on and off through last 24 hrs. HEENT - Pale, no oral lesions. SOB in conversation. BS seem a little better. RRR and 100con exam. S1S2 Obease, NT ND Ext +1 edema, better. Neuro AAOx3 gross non focal EKG - QTc 538 up from 500 Assessment: []66 year old with history of myeloma who has responded well to therapy but treatment held in September of this year after several infections. Presents with intermittent a-fib and RVR, CHF. Combination of uncontrolled A fib and underlying lung disease. Plan: []1. A-fib and CHF. Has increased QTc and will have to hold Sotalol and follow. Rate control only. Case discussed with Dr. Low, can try [place]. Will place on Cardizem 30 q 6 and hold for SBP < 100. 2. Diuretics on hold for increased BUN, dose per cardiology. 3. Coumadin, follow INR daily 4. COPD. Start Advair today and follow. 5. Encouraged to walk around floor. 6. Follow in house until QTc decreased, check EKG tomorrow. \ 7. DM. follow on oral hypoglycemics.
[2016-12-02] MEDS: Warfarin TAB(*) 3 MG PO SCH (16:00)
[2016-12-02] MEDS: ValACYclovir (*) 500 MG TAB PO SCH (16:58)
[2016-12-02] MEDS: Atorvastatin* 10 MG TAB PO SCH (16:58)
[2016-12-03 04:42] LABS: Hematocrit 29 % (42-52); Hemoglobin 8.6 g/dl (14.0-18.0); Mean Corpuscular HGB Conc 30 g/dl (31-36); Mean Corpuscular Hemoglobin 19 pg (27-31); Mean Platelet Volume 10 um3 (7.4-10.4); Red Blood Count 4.42 10^6/ul (4.0-5.4); Red Cell Distribution Width 20 % (10.5-15); White Blood Count 5.4 10^3/ul (3.5-10.8)
[2016-12-03 04:53] LABS: Comments Flag Yes; Mean Corpuscular Volume 66 fL (80-94)
[2016-12-03 05:00] LABS: Albumin 3.3 g/dL (3.2-5.2); BUN/Creatinine Ratio 25.2 (8-20); Calcium 8.4 mg/dL (8.6-10.3); EGFR Non-African American 66.1 (>60); Globulin 2.2 g/dL (2-4); Magnesium 1.8 mg/dL (1.9-2.7); Potassium 3.7 mmol/L (3.5-5.0); Total Bilirubin 0.5 mg/dL (0.2-1.0); Total Protein 5.5 g/dL (6.4-8.9)
[2016-12-03] MEDS: Metoprolol Tartrate IV* 1 MG/ML 5 ML VIAL IV PRN ×3 (06:06→18:56)
[2016-12-03] MEDS: metFORMIN* 500 MG TAB PO SCH ×2 (07:21→21:33)
[2016-12-03] MEDS: CMCS: Pantoprazole TAB (NF) 40 MG TAB PO SCH (07:21)
[2016-12-03] MEDS: glipiZIDE TAB.XL* 5 MG PO SCH ×2 (07:21→21:34)
[2016-12-03] MEDS: Magnesium Oxide TAB* 400 MG PO SCH (07:21)
[2016-12-03] MEDS: Sertraline* 100 MG TAB PO SCH (07:21)
[2016-12-03] MEDS: Carvedilol TAB* 25 MG PO SCH ×2 (07:22→21:33)
[2016-12-03] MEDS: Furosemide IV* 10 MG/ML VIAL (40 MG) IV SCH (07:22)
[2016-12-03] MEDS: Warfarin TAB(*) 3 MG PO SCH (15:39)
[2016-12-03] MEDS: Diltiazem CD CAP* 120 MG PO SCH (15:42)
[2016-12-03] MEDS: ValACYclovir (*) 500 MG TAB PO SCH (17:07)
[2016-12-03] MEDS: Atorvastatin* 10 MG TAB PO SCH (17:07)
--- NOTE | 2016-12-03 21:56 | CONS ---
CC: Dr. Joce Cain; Dr. Olman Rodriguez * FOLLOWUP CONSULTATION REPORT: DATE OF CONSULT: 12/03/16 INDICATION FOR REPEAT CONSULT: Atrial fibrillation. HISTORY OF PRESENT ILLNESS: The patient is a gentleman with a history of pacemaker, history of tachy-martha syndrome, history of paroxysmal atrial fibrillation. The patient was in the hospital and found to be having increased episodes of atrial fibrillation. He underwent cardioversion last week back to normal sinus rhythm. The patient is on amiodarone; however, his maximum dose of amiodarone is 100 mg a day. Over the weekend, the patient was started on sotalol 80 mg twice a day for assistance with control of his atrial fibrillation. On Friday morning, 12/02/16, his EKG showed normal sinus rhythm; however, his QT interval had greatly prolonged to 540 milliseconds. It was decided at that time that sotalol was not appropriate medication until the amiodarone was washed out of the system. The patient's sotalol was stopped and the patient was continued on rate-control agents. Over the next 36 hours, the patient's heart rate was more difficult to control. Thus, Cardizem was added to his medical regimen. The patient is currently on Coreg and Cardizem for heart rate control. Ultimately, the patient will need to be restarted on sotalol in 3 to 4 weeks once the amiodarone is out of the system. In the meantime, the patient will be on calcium channel blockers, beta blockers, and potentially digoxin for control of his heart rhythm. If heart rhythm control was not able to be attained, the patient may need AV node ablation for prevention of tachycardic-induced cardiomyopathy. This was discussed in detail with the patient. Further recommendations pending his hospital course. TIME SPENT: Thirty minutes was spent discussing this with the patient and with Dr. Rodriguez. [id number]/[facility] #: [id number] MATT
[2016-12-04 04:55] LABS: BUN/Creatinine Ratio 21.2 (8-20); Calcium 8.5 mg/dL (8.6-10.3); EGFR African American 83.2 (>60); EGFR Non-African American 64.7 (>60); Magnesium 1.7 mg/dL (1.9-2.7); Potassium 3.5 mmol/L (3.5-5.0)
[2016-12-04] MEDS: Metoprolol Tartrate IV* 1 MG/ML 5 ML VIAL IV PRN ×2 (04:57→10:43)
[2016-12-04] MEDS: Furosemide IV* 10 MG/ML VIAL (40 MG) IV SCH (08:47)
[2016-12-04] MEDS: metFORMIN* 500 MG TAB PO SCH ×2 (08:48→20:54)
[2016-12-04] MEDS: Magnesium Oxide TAB* 400 MG PO SCH (08:48)
[2016-12-04] MEDS: Carvedilol TAB* 25 MG PO SCH ×2 (08:48→20:55)
[2016-12-04] MEDS: Diltiazem CD CAP* 120 MG PO SCH ×2 (08:48→20:55)
[2016-12-04] MEDS: CMCS: Pantoprazole TAB (NF) 40 MG TAB PO SCH (08:48)
[2016-12-04] MEDS: Sertraline* 100 MG TAB PO SCH (08:48)
[2016-12-04] MEDS: glipiZIDE TAB.XL* 5 MG PO SCH ×2 (08:48→20:54)
--- NOTE | 2016-12-04 13:38 | PN ---
Subjective Date of Service: 12/04/16 - CC: SOB, fast pulse rate Interval History: Afib persistent off all antiarrhythmics. Tachycardic rest and increases rapidly with light activity. Pt unaware except for nurses telling him/concerned. No significant SOB/orthopnea/PND, admits to being anxious and trouble sleeping from that. Medications Active Medications: Atorvastatin Calcium (Lipitor*) 10 mg PO QPM [facility] Last Admin: 12/03/16 17:07 Dose: 10 mg Carvedilol (Coreg Tab*) 25 mg PO BID [facility] Last Admin: 12/04/16 08:48 Dose: 25 mg Cyclobenzaprine HCl (Flexeril Tab*) 10 mg PO BID PRN PRN Reason: PAIN - BACK Diltiazem HCl (Cardizem Cd Cap*) 120 mg PO BID [facility] Docusate Sodium (Colace Cap*) 200 mg PO BID PRN PRN Reason: CONSTIPATION Furosemide (Lasix Iv*) 40 mg IV DAILY [facility] Last Admin: 12/04/16 08:47 Dose: 40 mg Glipizide (Glucotrol Xl*) 5 mg PO BID [facility] Last Admin: 12/04/16 08:48 Dose: 5 mg Lorazepam (Ativan Tab(*)) 1 mg PO DAILY PRN PRN Reason: ANXIETY Magnesium Oxide (Magox 400 Tab*) 800 mg PO 0900 [facility] Last Admin: 12/04/16 08:48 Dose: 800 mg Metformin HCl (Glucophage*) 500 mg PO BID [facility] Last Admin: 12/04/16 08:48 Dose: 500 mg Metoprolol Tartrate (Lopressor Iv*) 5 mg IV Q6H PRN PRN Reason: FOR HR > 130 Last Admin: 12/04/16 10:43 Dose: 5 mg Ondansetron HCl (Zofran Tab*) 4 mg PO Q8HR PRN PRN Reason: NAUSEA Pantoprazole Sodium (Protonix Tab (Nf)) 40 mg PO 0900 [facility] Last Admin: 12/04/16 08:48 Dose: 40 mg Pharmacy Profile Note (Coumadin Daily Reminder*) 1 note FOLLOW UP 1700 [facility] Last Admin: 12/03/16 15:39 Dose: Not Given Prochlorperazine (Compazine Tab*) 10 mg PO DAILY PRN PRN Reason: NAUSEA Sertraline HCl (Zoloft*) 100 mg PO 0900 [facility] Last Admin: 12/04/16 08:48 Dose: 100 mg Valacyclovir HCl (Valtrex 500 Mg (*)) 1,000 mg PO QPM [facility] PRN Reason: Protocol Last Admin: 12/03/16 17:07 Dose: 1,000 mg Objective Vital Signs: Temp Pulse Resp BP Pulse Ox 97.3 F 65 18 114/61 100 12/04/16 11:22 12/04/16 11:22 12/04/16 11:22 12/04/16 11:22 12/04/16 11:22 Oxygen Devices in Use Now: Nasal Cannula Appearance: Lying at 30 degrees, appears comfortable. Eyes: No Scleral Icterus, PERRLA Ears/Nose/Mouth/Throat: Clear Oropharnyx, Mucous Membranes Moist Neck: Trachea Midline, - - uncertain jvp Respiratory: Symmetrical Chest Expansion and Respiratory Effort, - - Further improvement in air movement. Wheezing and rhonchi again noted. Cardiovascular: RRR, - - 2/6 systolic murmur mid to late peaking USB. Abdominal: NL Sounds; No Tenderness; No Distention - obese. Extremities: No Clubbing, Cyanosis, - - no edema. Skin: No Rash or Ulcers Neurological: Alert and Oriented x 3 Lines/Tubes/Other Access: Clean, Dry and Intact Peripheral IV Laboratory Results: 12/03/16 04:16 12/04/16 04:17 INR (Anticoag Therapy) 3.36 (0.89-1.11) H 12/04/16 12:22 Total Bilirubin 0.50 mg/dL (0.2-1.0) 12/03/16 04:16 AST 19 U/L (13-39) 12/03/16 04:16 ALT 13 U/L (7-52) 12/03/16 04:16 Alkaline Phosphatase 107 U/L (34-104) H 12/03/16 04:16 CK-MB (CK-2) 1.1 ng/mL (0.6-6.3) 11/29/16 11:15 B-Natriuretic Peptide 779 pg/mL (-100) H 11/30/16 04:04 Total Protein 5.5 g/dL (6.4-8.9) L 12/03/16 04:16 Albumin 3.3 g/dL (3.2-5.2) 12/03/16 04:16 Globulin 2.2 g/dL (2-4) 12/03/16 04:16 Albumin/Globulin Ratio 1.5 (1-3) 12/03/16 04:16 11/30/16 04:02 Troponin I 0.03 Diagnostic Imaging: echocardiogram 08/14/2016, that showed stable mild to moderate aortic stenosis at most, normal left ventricular function with EF 55-60%, grade ll diastolic dysfunction, and concentric hypertrophy of the left ventricle Monitor: afib, RVR ECG: QTc remains prolonged but improved. Assessment/Plan Mr. 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 -QTc too high on sotalol initiated w/o full wean off amiodarone. -Remains hard to rate control. Afib, RVR: I doubled cardizem. Continue Coreg. Continue coumodin. Possible home soon with afib, follow up Dr. Cain, possible AVN ablation and retrial of antiarrhythmic in the future. COPD: -Improving air movement, wheezing which I think is pulmonary. -Consider inhaler. CHF: Continue current lasix dose, BUN improving with lower dose. .
[2016-12-04] MEDS: Atorvastatin* 10 MG TAB PO SCH (16:59)
[2016-12-04] MEDS: ValACYclovir (*) 500 MG TAB PO SCH (16:59)
[2016-12-05] MEDS: Furosemide IV* 10 MG/ML VIAL (40 MG) IV SCH (07:52)
[2016-12-05] MEDS: Sertraline* 100 MG TAB PO SCH (07:57)
[2016-12-05] MEDS: CMCS: Pantoprazole TAB (NF) 40 MG TAB PO SCH (08:01)
[2016-12-05] MEDS: metFORMIN* 500 MG TAB PO SCH ×2 (08:01→21:43)
[2016-12-05] MEDS: Magnesium Oxide TAB* 400 MG PO SCH (08:01)
[2016-12-05] MEDS: glipiZIDE TAB.XL* 5 MG PO SCH ×2 (08:01→21:44)
[2016-12-05] MEDS: Carvedilol TAB* 25 MG PO SCH ×2 (08:01→21:44)
[2016-12-05] MEDS: Diltiazem CD CAP* 120 MG PO SCH ×2 (08:01→21:45)
--- NOTE | 2016-12-05 08:20 | PN ---
Subjective Date of Service: 12/05/16 Interval History: Patient seen this morning. Says he feels well overall, not much change from yesterday. Urinating well. Denies SOB. No chest pain or palpitations, hoping to go home soon. Family History: Unchanged from Admission Social History: Unchanged from Admission Past Medical History: Unchanged from Admission Objective Active Medications: Atorvastatin Calcium (Lipitor*) 10 mg PO QPM [facility] Carvedilol (Coreg Tab*) 25 mg PO BID [facility] Cyclobenzaprine HCl (Flexeril Tab*) 10 mg PO BID PRN Diltiazem HCl (Cardizem Cd Cap*) 120 mg PO BID [facility] Docusate Sodium (Colace Cap*) 200 mg PO BID PRN Furosemide (Lasix Iv*) 40 mg IV DAILY [facility] Glipizide (Glucotrol Xl*) 5 mg PO BID [facility] Lorazepam (Ativan Tab(*)) 1 mg PO DAILY PRN Magnesium Oxide (Magox 400 Tab*) 800 mg PO 0900 [facility] Metformin HCl (Glucophage*) 500 mg PO BID [facility] Metoprolol Tartrate (Lopressor Iv*) 5 mg IV Q6H PRN Ondansetron HCl (Zofran Tab*) 4 mg PO Q8HR PRN Pantoprazole Sodium (Protonix Tab (Nf)) 40 mg PO 0900 [facility] Pharmacy Profile Note (Coumadin Daily Reminder*) 1 note FOLLOW UP 1700 [facility] Prochlorperazine (Compazine Tab*) 10 mg PO DAILY PRN Sertraline HCl (Zoloft*) 100 mg PO 0900 [facility] Valacyclovir HCl (Valtrex 500 Mg (*)) 1,000 mg PO QPM [facility] Vital Signs 12/04/16 12/04/16 12/04/16 11:22 15:47 19:57 Temperature 97.3 F 97.5 F Pulse Rate 65 71 Respiratory 18 20 20 Rate Blood Pressure 114/61 132/74 (mmHg) O2 Sat by Pulse 100 100 Oximetry 12/04/16 12/04/16 12/05/16 20:18 23:11 03:16 Temperature 97.7 F 97.6 F 97.7 F Pulse Rate 76 74 93 Respiratory 18 22 24 Rate Blood Pressure 134/60 125/66 128/65 (mmHg) O2 Sat by Pulse 100 100 100 Oximetry 07/27/17 07/27/17 06:40 07:16 Temperature 98.2 F Pulse Rate 110 Respiratory 16 16 Rate Blood Pressure 121/74 (mmHg) O2 Sat by Pulse 100 Oximetry Oxygen Devices in Use Now: Nasal Cannula - 2L Appearance: Middle-aged, M, appears older than stated age, sitting in bed in NAD Eyes: No Scleral Icterus Ears/Nose/Mouth/Throat: Mucous Membranes Moist Neck: NL Appearance and Movements; NL JVP Respiratory: Symmetrical Chest Expansion and Respiratory Effort, Clear to Auscultation Cardiovascular: RRR, - - mild TREVOR Abdominal: NL Sounds; No Tenderness; No Distention Lymphatic: No Cervical Adenopathy Extremities: - - Trace LE edema to mid-shins Skin: No Rash or Ulcers Neurological: Alert and Oriented x 3 Result Diagrams: 12/05/16 08:31 12/05/16 08:31 Microbiology and Other Data: Microbiology 11/30/16 18:50 Gram Stain - Final Sputum 11/29/16 14:30 Nasal Screen MRSA (PCR)(LESLY) - Final Nasal Mrsa Negative Assess/Plan/Problems-Billing Assessment: Mr. Ferreira is a 66 yo male with a PMH of multiple myeloma, DM, CAD, paroxysmal afib, tachy-martha syndrome s/p pacemaker, and PEs x 2 on chronic warfarin therapy who was admitted on 11/29/16 with afib and CHF, HR has been difficult to control - Patient Problems (1) Atrial fibrillation Current Visit: No Comment: - Continues to have episodes of AFib with RVR - Continue Caridzem 120 mg BID and Coreg 25 mg BID, will await any further Cardiology recs - Off of Amiodarone and Sotalol, plan to resume Sotalol in a few weeks once Amiodarone has washed out - INR elevated, coumadin on hold (2) CHF (congestive heart failure) Current Visit: No Comment: - Acute diastolic HF, likely related to uncontrolled afib. - Continue 40 mg IV Lasix daily, good UOP, creatinine/BNP pending (3) HTN (hypertension) Current Visit: No Comment: - BPs stable on above regimen (4) Diabetes mellitus type 2, noninsulin dependent Current Visit: No Status: Chronic Priority: High Code(s): E11.9 - TYPE 2 DIABETES MELLITUS WITHOUT COMPLICATIONS SNOMED Code(s): 74740475 Comment: - Continue metformin and glyburide for now (5) Multiple myeloma Current Visit: No Comment: - No longer on treatment due to multiple recent infections. - Management per oncology. (6) PUD (peptic ulcer disease) Current Visit: No Comment: - Continue pantoprazole. - No NSAIDS. Hx of GI bleed secondary to NSAIDs. (7) DVT prophylaxis Current Visit: No Comment: - Coumadin Status and Disposition: Inpatient for continued HR control
[2016-12-05 08:59] LABS: BUN/Creatinine Ratio 18.1 (8-20); EGFR African American 90.6 (>60); EGFR Non-African American 70.5 (>60); Magnesium 1.8 mg/dL (1.9-2.7); Potassium 3.9 mmol/L (3.5-5.0)
[2016-12-05 09:04] LABS: Hematocrit 33 % (42-52); Hemoglobin 9.6 g/dl (14.0-18.0); Mean Corpuscular HGB Conc 29 g/dl (31-36); Mean Corpuscular Hemoglobin 19 pg (27-31); Mean Platelet Volume 9 um3 (7.4-10.4); Red Blood Count 4.96 10^6/ul (4.0-5.4); Red Cell Distribution Width 20 % (10.5-15); White Blood Count 6.6 10^3/ul (3.5-10.8)
[2016-12-05 09:05] LABS: Comments Flag Yes
[2016-12-05 09:06] LABS: Mean Corpuscular Volume 67 fL (80-94)
[2016-12-05] MEDS ORDERED: Magnesium Sulfate 2 GM IV* 2 GM/50 ML BAG IVPB ONE (09:23)
[2016-12-05] MEDS ORDERED: Digoxin IV* 0.5 MG/2 ML AMP (0.25 MG/ML) IV SLOW PU ONE ×2 (09:35→17:00)
--- NOTE | 2016-12-05 09:46 | PN ---
Subjective Date of Service: 12/05/16 Interval History: Still with asymptomatic intermittent rapid atrial fibrillation despite coreg 25 mg PO BID and diltiazem 120 mg PO BID dyspnea resolved, no lightheadedness BNP down to 110 No weights since admission Medications Active Medications: Atorvastatin Calcium (Lipitor*) 10 mg PO QPM [facility] Last Admin: 12/04/16 16:59 Dose: 10 mg Carvedilol (Coreg Tab*) 25 mg PO BID [facility] Last Admin: 12/05/16 08:01 Dose: 25 mg Cyclobenzaprine HCl (Flexeril Tab*) 10 mg PO BID PRN PRN Reason: PAIN - BACK Digoxin (Digoxin Iv*) 0.5 mg IV SLOW PU ONCE ONE Stop: 12/05/16 09:36 Diltiazem HCl (Cardizem Cd Cap*) 120 mg PO BID [facility] Last Admin: 12/05/16 08:01 Dose: 120 mg Docusate Sodium (Colace Cap*) 200 mg PO BID PRN PRN Reason: CONSTIPATION Furosemide (Lasix Iv*) 40 mg IV DAILY [facility] Last Admin: 12/05/16 07:52 Dose: 40 mg Glipizide (Glucotrol Xl*) 5 mg PO BID [facility] Last Admin: 12/05/16 08:01 Dose: 5 mg Magnesium Sulfate (Magnesium Sulfate 2 Gm Iv*) 2 gm in 50 mls @ 50 mls/hr IVPB ONCE ONE Stop: 12/05/16 10:22 Lorazepam (Ativan Tab(*)) 1 mg PO DAILY PRN PRN Reason: ANXIETY Magnesium Oxide (Magox 400 Tab*) 800 mg PO 0900 [facility] Last Admin: 12/05/16 08:01 Dose: 800 mg Metformin HCl (Glucophage*) 500 mg PO BID [facility] Last Admin: 12/05/16 08:01 Dose: 500 mg Metoprolol Tartrate (Lopressor Iv*) 5 mg IV Q6H PRN PRN Reason: FOR HR > 130 Last Admin: 12/04/16 10:43 Dose: 5 mg Ondansetron HCl (Zofran Tab*) 4 mg PO Q8HR PRN PRN Reason: NAUSEA Pantoprazole Sodium (Protonix Tab (Nf)) 40 mg PO 0900 [facility] Last Admin: 12/05/16 08:01 Dose: 40 mg Pharmacy Profile Note (Coumadin Daily Reminder*) 1 note FOLLOW UP 1700 [facility] Last Admin: 12/04/16 16:02 Dose: Not Given Prochlorperazine (Compazine Tab*) 10 mg PO DAILY PRN PRN Reason: NAUSEA Sertraline HCl (Zoloft*) 100 mg PO 0900 [facility] Last Admin: 12/05/16 07:57 Dose: 100 mg Valacyclovir HCl (Valtrex 500 Mg (*)) 1,000 mg PO QPM [facility] PRN Reason: Protocol Last Admin: 12/04/16 16:59 Dose: 1,000 mg Objective Vital Signs: Temp Pulse Resp BP Pulse Ox 98.2 F 110 16 121/74 100 12/05/16 07:16 12/05/16 07:16 12/05/16 07:16 12/05/16 07:16 12/05/16 07:16 Oxygen Devices in Use Now: Nasal Cannula - 2L Appearance: Lying at 30 degrees, appears comfortable. Eyes: No Scleral Icterus, PERRLA Ears/Nose/Mouth/Throat: Clear Oropharnyx, Mucous Membranes Moist Neck: Trachea Midline, - - uncertain jvp Respiratory: Symmetrical Chest Expansion and Respiratory Effort, - - low pitched rhonchi Cardiovascular: RRR, - - 2/6 systolic murmur Abdominal: NL Sounds; No Tenderness; No Distention - obese. Extremities: No Clubbing, Cyanosis, - - trace to 1+ edema Skin: No Rash or Ulcers Neurological: Alert and Oriented x 3 Lines/Tubes/Other Access: Clean, Dry and Intact Peripheral IV Laboratory Results: 12/05/16 08:31 12/05/16 08:31 INR (Anticoag Therapy) 3.36 (0.89-1.11) H 12/04/16 12:22 Total Bilirubin 0.50 mg/dL (0.2-1.0) 12/03/16 04:16 AST 19 U/L (13-39) 12/03/16 04:16 ALT 13 U/L (7-52) 12/03/16 04:16 Alkaline Phosphatase 107 U/L (34-104) H 12/03/16 04:16 CK-MB (CK-2) 1.1 ng/mL (0.6-6.3) 11/29/16 11:15 B-Natriuretic Peptide 110 pg/mL (-100) H 12/05/16 08:31 Total Protein 5.5 g/dL (6.4-8.9) L 12/03/16 04:16 Albumin 3.3 g/dL (3.2-5.2) 12/03/16 04:16 Globulin 2.2 g/dL (2-4) 12/03/16 04:16 Albumin/Globulin Ratio 1.5 (1-3) 12/03/16 04:16 mg 1.8 11/30/16 04:02 Troponin I 0.03 Diagnostic Imaging: echocardiogram 08/14/2016, that showed stable mild to moderate aortic stenosis at most, normal left ventricular function with EF 55-60%, grade ll diastolic dysfunction, and concentric hypertrophy of the left ventricle EKG Data: Monitor: in and out of afib, when in afib, RVR Assessment/Plan Mr. 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 Sotalol started but stopped because of long QTc (also had recent amiodarone and is on high dose sertraline which may have contributed). QTc now normalized but remains with intermittent asymptomatic rapid atrial fibrillation despite diltiazem 120 mg PO BID and coreg 25 mg PO BID. Dyspnea resolved with BNP now nearly normal after IV diuresis. - Continue coumadin - Continue statin - Continue diltiazem and coreg - Start IV digoxin 0.5 mg x 1 now then 0.25 mg IV later today, then start 0.125 mg every other day starting Friday. Will need f/u level in several weeks. - Given 2 gram IV magnesium today (ordered) - Continue diuresis, change to 20 mg PO daily at discharge Thank you for allowing me to participate in the cardiovascular care of this patient. Please do not hesitate to contact me with questions or concerns.
[2016-12-05] MEDS: ValACYclovir (*) 1 GM TAB PO SCH (16:46)
[2016-12-05] MEDS: Atorvastatin* 10 MG TAB PO SCH (16:46)
[2016-12-05] MEDS: Metoprolol Tartrate IV* 1 MG/ML 5 ML VIAL IV PRN (17:27)
[2016-12-05] MEDS ORDERED: Metoprolol Tartrate IV* 1 MG/ML 5 ML VIAL IV ONE (20:25)
[2016-12-06 05:25] LABS: BUN/Creatinine Ratio 16.8 (8-20); Calcium 8.6 mg/dL (8.6-10.3); EGFR African American 78.4 (>60); Magnesium 1.8 mg/dL (1.9-2.7); Potassium 3.7 mmol/L (3.5-5.0)
[2016-12-06] MEDS ORDERED: Magnesium Sulfate 2 GM IV* 2 GM/50 ML BAG IVPB ONE (08:46)
[2016-12-06] MEDS ORDERED: Potassium Chlor TAB* 20 MEQ TAB.ER PO ONE (09:02)
--- NOTE | 2016-12-06 09:28 | PN ---
Subjective Date of Service: 12/06/16 Interval History: Patient seen this morning. Feels well. Denies SOB. Has been urinating well. No chest pain or palpitations. Family History: Unchanged from Admission Social History: Unchanged from Admission Past Medical History: Unchanged from Admission Objective Active Medications: Atorvastatin Calcium (Lipitor*) 10 mg PO QPM [facility] Carvedilol (Coreg Tab*) 25 mg PO BID [facility] Cyclobenzaprine HCl (Flexeril Tab*) 10 mg PO BID PRN Digoxin (Lanoxin Tab*) 0.125 mg PO EVERY OTHER DAY [facility] Diltiazem HCl (Cardizem Cd Cap*) 120 mg PO BID [facility] Docusate Sodium (Colace Cap*) 200 mg PO BID PRN Furosemide (Lasix Iv*) 40 mg IV DAILY [facility] Glipizide (Glucotrol Xl*) 5 mg PO BID [facility] Magnesium Sulfate (Magnesium Sulfate 2 Gm Iv*) 2 gm in 50 mls @ 50 mls/hr IVPB ONCE ONE Lorazepam (Ativan Tab(*)) 1 mg PO DAILY PRN Magnesium Oxide (Magox 400 Tab*) 800 mg PO 0900 [facility] Metformin HCl (Glucophage*) 500 mg PO BID [facility] Metoprolol Tartrate (Lopressor Iv*) 5 mg IV Q6H PRN Ondansetron HCl (Zofran Tab*) 4 mg PO Q8HR PRN Pantoprazole Sodium (Protonix Tab (Nf)) 40 mg PO 0900 [facility] Pharmacy Profile Note (Coumadin Daily Reminder*) 1 note FOLLOW UP 1700 [facility] Prochlorperazine (Compazine Tab*) 10 mg PO DAILY PRN Sertraline HCl (Zoloft*) 100 mg PO 0900 [facility] Valacyclovir HCl (Valtrex 1 Gm(*)) 1 gm PO 1800 [facility] Vital Signs 12/05/16 12/05/16 12/05/16 10:05 11:08 15:14 Temperature 98.5 F 98.2 F Pulse Rate 72 77 82 Respiratory 16 17 Rate Blood Pressure 119/58 122/64 (mmHg) O2 Sat by Pulse 100 96 Oximetry 12/05/16 12/05/16 12/05/16 16:38 19:35 20:00 Temperature 98.3 F Pulse Rate 110 97 Respiratory 17 17 Rate Blood Pressure 135/72 (mmHg) O2 Sat by Pulse 100 Oximetry 12/05/16 12/06/16 12/06/16 23:22 03:16 07:18 Temperature 98.4 F 98.2 F 97.6 F Pulse Rate 104 90 67 Respiratory 30 26 20 Rate Blood Pressure 123/56 125/59 112/55 (mmHg) O2 Sat by Pulse 99 100 97 Oximetry Oxygen Devices in Use Now: Nasal Cannula - 2L Appearance: Middle-aged, M, appears older than stated age, laying in bed in NAD Eyes: No Scleral Icterus Ears/Nose/Mouth/Throat: Mucous Membranes Moist Neck: NL Appearance and Movements; NL JVP Respiratory: Symmetrical Chest Expansion and Respiratory Effort, Clear to Auscultation Cardiovascular: - - IRIR, mild tachycardia, TREVOR Abdominal: NL Sounds; No Tenderness; No Distention Lymphatic: No Cervical Adenopathy Extremities: - - Trace LE edema Skin: No Rash or Ulcers Neurological: Alert and Oriented x 3 Result Diagrams: 12/05/16 08:31 12/06/16 04:15 Assess/Plan/Problems-Billing Assessment: Mr. Ferreira is a 66 yo male with a PMH of multiple myeloma, DM, CAD, paroxysmal afib, tachy-martha syndrome s/p pacemaker, and PEs x 2 on chronic warfarin therapy who was admitted on 11/29/16 with afib and CHF, HR has been difficult to control - Patient Problems (1) Atrial fibrillation Current Visit: No Comment: - Digoxin IV x [address] Gamble yesterday with plans to start oral tomorrow AM - Continues to have episodes of AFib with RVR - Continue Caridzem 120 mg BID and Coreg 25 mg BID - Off of Amiodarone and Sotalol, plan to resume Sotalol in a few weeks once Amiodarone has washed out - INR this AM is pending, has been supratherapeutic (2) CHF (congestive heart failure) Current Visit: No Comment: - Acute diastolic HF, likely related to uncontrolled afib. - Continue 40 mg IV Lasix daily, good UOP, creatinine up slightly, if up again tomorrow may stop IV (3) HTN (hypertension) Current Visit: No Comment: - BPs stable on above regimen (4) Diabetes mellitus type 2, noninsulin dependent Current Visit: No Status: Chronic Priority: High Code(s): E11.9 - TYPE 2 DIABETES MELLITUS WITHOUT COMPLICATIONS SNOMED Code(s): 59464853 Comment: - Continue metformin and glyburide (5) Multiple myeloma Current Visit: No Comment: - No longer on treatment due to multiple recent infections. - Management per oncology. (6) PUD (peptic ulcer disease) Current Visit: No Comment: - Continue pantoprazole. - No NSAIDS. Hx of GI bleed secondary to NSAIDs. (7) DVT prophylaxis Current Visit: No Comment: - Coumadin Status and Disposition: Inpatient for continued HR control
[2016-12-06] MEDS ORDERED: Digoxin IV* 0.5 MG/2 ML AMP (0.25 MG/ML) IV SLOW PU ONE (09:45)
[2016-12-06] MEDS: Furosemide IV* 10 MG/ML VIAL (40 MG) IV SCH (09:51)
[2016-12-06] MEDS: Sertraline* 100 MG TAB PO SCH (09:52)
[2016-12-06] MEDS: metFORMIN* 500 MG TAB PO SCH (09:52)
[2016-12-06] MEDS: glipiZIDE TAB.XL* 5 MG PO SCH (09:52)
[2016-12-06] MEDS: CMCS: Pantoprazole TAB (NF) 40 MG TAB PO SCH (09:52)
[2016-12-06] MEDS: Magnesium Oxide TAB* 400 MG PO SCH (09:52)
[2016-12-06] MEDS: Diltiazem CD CAP* 120 MG PO SCH (09:52)
[2016-12-06] MEDS: Carvedilol TAB* 25 MG PO SCH (09:52)
--- NOTE | 2016-12-06 10:02 | PN ---
Subjective Date of Service: 12/06/16 Interval History: f/u atrial fibrillation Still in and out of Afib, rates now controlled at rest but mildly elevated with activity no cp, dyspnea, lightheadedness Medications Active Medications: Atorvastatin Calcium (Lipitor*) 10 mg PO QPM [facility] Last Admin: 12/05/16 16:46 Dose: 10 mg Carvedilol (Coreg Tab*) 25 mg PO BID [facility] Last Admin: 12/06/16 09:52 Dose: 25 mg Cyclobenzaprine HCl (Flexeril Tab*) 10 mg PO BID PRN PRN Reason: PAIN - BACK Digoxin (Lanoxin Tab*) 0.125 mg PO 1700 [facility] Diltiazem HCl (Cardizem Cd Cap*) 120 mg PO BID [facility] Last Admin: 12/06/16 09:52 Dose: 120 mg Docusate Sodium (Colace Cap*) 200 mg PO BID PRN PRN Reason: CONSTIPATION Furosemide (Lasix Iv*) 40 mg IV DAILY [facility] Last Admin: 12/06/16 09:51 Dose: 40 mg Glipizide (Glucotrol Xl*) 5 mg PO BID [facility] Last Admin: 12/06/16 09:52 Dose: 5 mg Lorazepam (Ativan Tab(*)) 1 mg PO DAILY PRN PRN Reason: ANXIETY Magnesium Oxide (Magox 400 Tab*) 800 mg PO 0900 [facility] Last Admin: 12/06/16 09:52 Dose: 800 mg Metformin HCl (Glucophage*) 500 mg PO BID [facility] Last Admin: 12/06/16 09:52 Dose: 500 mg Metoprolol Tartrate (Lopressor Iv*) 5 mg IV Q6H PRN PRN Reason: FOR HR > 130 Last Admin: 12/05/16 17:27 Dose: 5 mg Ondansetron HCl (Zofran Tab*) 4 mg PO Q8HR PRN PRN Reason: NAUSEA Pantoprazole Sodium (Protonix Tab (Nf)) 40 mg PO 0900 [facility] Last Admin: 12/06/16 09:52 Dose: 40 mg Pharmacy Profile Note (Coumadin Per Pharmacy*) 1 note FOLLOW UP .PER PHARMACY PROTOC [facility] PRN Reason: Protocol Prochlorperazine (Compazine Tab*) 10 mg PO DAILY PRN PRN Reason: NAUSEA Sertraline HCl (Zoloft*) 100 mg PO 0900 [facility] Last Admin: 12/06/16 09:52 Dose: 100 mg Valacyclovir HCl (Valtrex 1 Gm(*)) 1 gm PO 1800 [facility] Last Admin: 12/05/16 16:46 Dose: 1 gm Objective Vital Signs: Temp Pulse Resp BP Pulse Ox 97.6 F 67 17 112/55 97 12/06/16 07:18 12/06/16 07:18 12/06/16 08:20 12/06/16 07:18 12/06/16 07:18 Oxygen Devices in Use Now: Nasal Cannula - 2L Appearance: Lying at 30 degrees, appears comfortable. Eyes: No Scleral Icterus, PERRLA Ears/Nose/Mouth/Throat: Clear Oropharnyx, Mucous Membranes Moist Neck: Trachea Midline, - - uncertain jvp Respiratory: Symmetrical Chest Expansion and Respiratory Effort, - - low pitched rhonchi Cardiovascular: RRR, - - 2/6 systolic murmur Abdominal: NL Sounds; No Tenderness; No Distention - obese. Extremities: No Clubbing, Cyanosis, - - trace to 1+ edema Skin: No Rash or Ulcers Neurological: Alert and Oriented x 3 Lines/Tubes/Other Access: Clean, Dry and Intact Peripheral IV Laboratory Results: 12/05/16 08:31 12/06/16 04:15 INR (Anticoag Therapy) 3.36 (0.89-1.11) H 12/04/16 12:22 Total Bilirubin 0.50 mg/dL (0.2-1.0) 12/03/16 04:16 AST 19 U/L (13-39) 12/03/16 04:16 ALT 13 U/L (7-52) 12/03/16 04:16 Alkaline Phosphatase 107 U/L (34-104) H 12/03/16 04:16 CK-MB (CK-2) 1.1 ng/mL (0.6-6.3) 11/29/16 11:15 B-Natriuretic Peptide 110 pg/mL (-100) H 12/05/16 08:31 Total Protein 5.5 g/dL (6.4-8.9) L 12/03/16 04:16 Albumin 3.3 g/dL (3.2-5.2) 12/03/16 04:16 Globulin 2.2 g/dL (2-4) 12/03/16 04:16 Albumin/Globulin Ratio 1.5 (1-3) 12/03/16 04:16 11/30/16 04:02 Troponin I 0.03 Diagnostic Imaging: echocardiogram 08/14/2016, that showed stable mild to moderate aortic stenosis at most, normal left ventricular function with EF 55-60%, grade ll diastolic dysfunction, and concentric hypertrophy of the left ventricle EKG Data: Monitor: in and out of afib, when in afib, RVR Assessment/Plan Mr. 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 Sotalol started but stopped because of long QTc (also had recent amiodarone and is on high dose sertraline which may have contributed). QTc now normalized but remains with intermittent asymptomatic rapid atrial fibrillation despite diltiazem 120 mg PO BID and coreg 25 mg PO BID. Dyspnea resolved with BNP now nearly normal after IV diuresis. - Continue coumadin - Continue statin - Given 120 mg PO diltiazem now then increase to 240 mg PO QAM/120 mg QPM- - Continue coreg 25 mg PO BID - Given digoxin 0.25 mg IV x 1 now then start 0.125 mg every day. Will need f/u level in several weeks. - Given 2 gram IV magnesium today (ordered) - lasix change to 20 mg PO daily Thank you for allowing me to participate in the cardiovascular care of this patient. Please do not hesitate to contact me with questions or concerns.
[2016-12-06] MEDS ORDERED: Diltiazem CD CAP* 240 MG PO ONE (10:49)
[2016-12-06] MEDS ORDERED: Diltiazem CD CAP* 120 MG PO ONE (11:30)
[2016-12-06 14:02] VITALS: BP 125/68
[2016-12-06] MEDS: ValACYclovir (*) 1 GM TAB PO SCH (16:59)
[2016-12-06] MEDS: Atorvastatin* 10 MG TAB PO SCH (16:59)
[2016-12-06] MEDS ORDERED: Warfarin TAB(*) 3 MG PO ONE (17:00)
[2016-12-06] MEDS ORDERED: Diltiazem CD CAP* 120 MG PO SCH (21:00)
[2016-12-07] MEDS ORDERED: Furosemide TAB* 20 MG PO SCH (09:00)
[2016-12-07] MEDS ORDERED: Diltiazem CD CAP* 240 MG PO SCH (09:00)
[2016-12-07] MEDS ORDERED: Digoxin TAB* 0.125 MG PO SCH ×2 (09:00→17:00)
--- NOTE | 2016-12-07 12:59 | DS ---
CC: Dr. Watt; Dr. Joce Cain; Dr. Adams Whitmore. DISCHARGE SUMMARY: DATE OF ADMISSION: 11/29/16 DATE OF DISCHARGE: 12/06/16 PRIMARY CARE PHYSICIAN: Dr. Watt. PRINCIPAL DISCHARGE DIAGNOSES: 1. Uncontrolled atrial fibrillation with rapid ventricular response. 2. Acute diastolic congestive heart failure exacerbation. SECONDARY DIAGNOSES: 1. Coronary artery disease. 2. Diabetes. 3. Chronic diastolic heart failure. 4. Multiple myeloma. CONSULTANTS DURING HOSPITALIZATION: Dr. Sergey Gamble, Cardiology. STUDIES DONE DURING HOSPITALIZATION: Chest x-ray. Impression: Small interval increase and appeara nce of engorged pulmonary vasculature could be seen in the setting of exacerbation of congestive hea rt failure. HISTORY OF PRESENT ILLNESS AND HOSPITAL SUMMARY: Please see the full history and physical from the oncology office for full details. Briefly, Mr. Ferreira presented to the office with progressive short ness of breath and weight gain. He did start continuous oxygen as an outpatient. The patient was d iagnosed with uncontrolled atrial fibrillation and acute diastolic CHF exacerbation. The patient wa s diuresed with IV Lasix with improvement in his edema and breathing symptoms. The patient was seen by Cardiology as his heart rate was very difficult to control. Initially his me toprolol was increased, his amiodarone was continued. Then the decision was made to transition the patient to sotalol; however, once this was started, the patient began to have prolongation of his QT c. This was felt to be due to the sotalol in combination with the amiodarone still being present in the patient's system. The patient was then transitioned to Cardizem and Coreg. These were slowly titrated up. EKGs were monitored with improvement in the QTc once the sotalol was stopped. Heart r ate still remained difficult to control. Dr. Gamble loaded the patient with digoxin with improvemen t in his heart rates. The patient felt much better in terms of breathing and exercise tolerance. Merrill palomares will be discharged home on Cardizem CD 240 mg by mouth in the morning, 120 mg by mouth at bedtime, Coreg 25 mg by mouth 2 times daily, and digoxin 0.125 mg by mouth nightly. His amiodarone was stopp ed as well as his metoprolol and lisinopril. The patient will need an INR check in a few days as he became subtherapeutic here in the hospital. I will discuss with Hematology whether to bridge the p atient as it seems like he has had a PE in the past. The patient will also need a digoxin level marcial cked in a few weeks which has been ordered. He will need close outpatient followup with Dr. Cain and with his PCP Dr. Watt, as well as with Dr. Whitmore as needed. DISCHARGE MEDICATION REGIMEN: 1. Coreg 25 mg by mouth 2 times daily. 2. Digoxin 0.125 mg by mouth nightly. 3. Diltiazem 240 mg by mouth daily and 120 mg by mouth at bedtime. 4. Lasix 20 mg by mouth daily. 5. Glipizide 5 mg by mouth daily. 6. Protonix 40 mg by mouth daily. 7. Zoloft 100 mg by mouth daily. 8. Metformin 500 mg by mouth 3 times daily. 9. Atorvastatin 10 mg nightly. 10. Calcium 500 mg by mouth daily. 11. Iron polysaccharide complex 1 capsule by mouth 3 times daily. 12. Valacyclovir 1000 mg by mouth nightly. 13. Colace 200 mg by mouth 3 times daily as needed for constipation. 14. Ativan 1 mg by mouth daily as needed for anxiety. 15. Zofran 4 mg by mouth every 8 hours as needed for nausea. 16. Compazine 10 mg by mouth daily as needed for nausea. 17. Flexeril 10 mg by mouth 2 times daily as needed for muscle cramps. 18. Magnesium 1000 units by mouth daily. 19. Vitamin E 400 units by mouth daily. TIME SPENT: Total time spent on this discharge 60 minutes. This is a summary of the hospitalization, please see the full medical record for further details. [id number]/[facility] #: [id number]
== END 2016-12-06 18:05 | disposition home or self-care (01) | DRG 308 ==
LOC: ED 10:49 → INTOOBSV 13:49 → MEDTELE 13:49 → OBSVTOIN 16:00
PROVIDERS: ADMIT Internal Medicine Hematology & Oncology; ATTEND Internal Medicine Hematology & Oncology
DX: I48.0 Paroxysmal atrial fibrillation (principal); I50.33 Acute on chronic diastolic (congestive) heart failure; E11.22 Type 2 diabetes mellitus with diabetic chronic kidney disease; E11.36 Type 2 diabetes mellitus with diabetic cataract; J44.9 Chronic obstructive pulmonary disease, unspecified; I13.0 Hypertensive heart and chronic kidney disease with heart failure and stage 1 through stage 4 chronic kidney disease, or unspecified chronic kidney disease; Z95.0 Presence of cardiac pacemaker; Z88.8 Allergy status to other drugs, medicaments and biological substances; I25.10 Atherosclerotic heart disease of native coronary artery without angina pectoris; G47.30 Sleep apnea, unspecified; M19.90 Unspecified osteoarthritis, unspecified site; F41.9 Anxiety disorder, unspecified; F32.9 Major depressive disorder, single episode, unspecified; Z86.14 Personal history of Methicillin resistant Staphylococcus aureus infection; Z87.891 Personal history of nicotine dependence; K21.9 Gastro-esophageal reflux disease without esophagitis; E78.5 Hyperlipidemia, unspecified; Z95.5 Presence of coronary angioplasty implant and graft; Z96.642 Presence of left artificial hip joint; Z82.3 Family history of stroke; R79.1 Abnormal coagulation profile; T45.515A Adverse effect of anticoagulants, initial encounter; Z86.711 Personal history of pulmonary embolism; Z85.79 Personal history of other malignant neoplasms of lymphoid, hematopoietic and related tissues; N18.9 Chronic kidney disease, unspecified; K27.9 Peptic ulcer, site unspecified, unspecified as acute or chronic, without hemorrhage or perforation; I35.0 Nonrheumatic aortic (valve) stenosis; I25.2 Old myocardial infarction; Z79.84 Long term (current) use of oral hypoglycemic drugs
CPT/HCPCS: 36415; 36600; 71010; 80048; 80053; 81003; 81015; 82550; 82553; 82803; 83605; 83735; 83880; 84484; 85025; 85610; 86140; 87040; 87070; 87205; 87641; 93005; 94640; 94760; 99220; 99232; A9270-GY; J1160; J1940; J2930

== ENCOUNTER 2016-12-10 11:05 | Emergency (ER) | payer MEDICARE, OTHER ==
[2016-12-10 12:12] LABS: Hematocrit 33 % (42-52); Hemoglobin 9.4 g/dl (14.0-18.0); Mean Corpuscular HGB Conc 29 g/dl (31-36); Mean Corpuscular Hemoglobin 19 pg (27-31); Mean Platelet Volume 9 um3 (7.4-10.4); Red Blood Count 4.95 10^6/ul (4.0-5.4); Red Cell Distribution Width 21 % (10.5-15); White Blood Count 5.9 10^3/ul (3.5-10.8)
[2016-12-10 12:25] LABS: Albumin 3.8 g/dL (3.2-5.2); BUN/Creatinine Ratio 13.8 (8-20); Calcium 8.9 mg/dL (8.6-10.3); EGFR African American 70.8 (>60); EGFR Non-African American 55.1 (>60); Globulin 2.5 g/dL (2-4); Magnesium 2.1 mg/dL (1.9-2.7); Potassium 4.3 mmol/L (3.5-5.0); Total Bilirubin 0.6 mg/dL (0.2-1.0); Total Protein 6.3 g/dL (6.4-8.9)
[2016-12-10 12:26] LABS: Troponin I 0.02 ng/mL (<0.04)
[2016-12-10 12:29] LABS: Comments Flag Yes
[2016-12-10 12:30] LABS: Mean Corpuscular Volume 66 fL (80-94)
--- NOTE | 2016-12-10 12:59 | RAD ---
Indication: Right-sided sciatica. History of multiple myeloma. CT of the lumbar spine was obtained in the axial plane. Sagittal and coronal reconstructed images were obtained. The vertebral bodies demonstrates decrease in height of the L3, L4 and L5 vertebra. This is likely chronic in nature. Additionally there is a lucent areas in the T12 vertebra as well smaller lucent areas in throughout the lumbar vertebra which may represent myeloma. At L1-L2 no disc protrusion is noted. Mild facet arthropathy is noted. No central or foraminal stenosis is noted. L2-L3 degenerative disc disease with broad-based protrusion is noted. Calcified disc is noted. Moderate degree of facet arthropathy is noted. Moderate degree of spinal stenosis is noted. Prior injury of the right transverse process at L2 is noted. Moderate degree of spinal stenosis is noted. There may be a far left lateral component of disc protrusion which impinges upon the left exiting nerve root. At L3-L4 spondylitic ridge flattens the thecal sac. Moderate facet hypertrophy is noted. No central or foraminal stenosis is noted. At L4-L5 spondylitic ridge flattens the thecal sac. Moderate facet hypertrophy is noted. Broad-based protrusion is noted. At L5-S1 no disc protrusion is noted. Lucent areas are noted in the sacrum and pelvis as well. IMPRESSION: COMPRESSION OF L3, L4 AND L5 AGE OF WHICH ARE UNDETERMINED. MULTIPLE LUCENCIES ARE NOTED THROUGHOUT THE VERTEBRAL BODIES AND PELVIS AND SACRUM CONSISTENT WITH HISTORY OF MYELOMA. AT L2-L3 VACUUM DISC PHENOMENON, CALCIFIED DISC AND BROAD-BASED PROTRUSION RESULTS IN A MILD TO MODERATE SPINAL STENOSIS. THERE MAY BE A FAR LEFT LATERAL DISC COMPONENT WHICH MAY IMPINGE UPON THE LEFT EXITING NERVE ROOT. AT L4-L5 BROAD-BASED PROTRUSION WITH FACET AND LIGAMENTOUS HYPERTROPHY RESULTS IN A MODERATE DEGREE OF SPINAL STENOSIS.??
[2016-12-10 13:38] LABS: TSH (Thyroid Stimulating Horm) 0.63 mcIU/mL (0.34-5.60)
[2016-12-10 14:46] VITALS: BP 152/92
--- NOTE | 2016-12-13 14:11 | ED ---
I, Oh,Soohyquynh, scribed for Jayme Barriga MD on 12/10/16 at 1148 . Lower Extremity - HPI Summary HPI Summary: This 66 y/o male presents to ED for RLE weakness since yesterday. Pt reports trouble getting out of chair yesterday. He decided to visit ED today when he "couldn't get up". Right leg "collapsed under me". Positive chronic mid low back pain, RLE pain, and general weakness. RLE is chronic due to DM with neuropathy BLE. Negative dysuria or urinary/bowel incontinence. Normal BM. PMHx is significant multiple myeloma, DM type II with neuropathy, and HLD. - History of Current Complaint Chief Complaint: EDWeakness Stated Complaint: LEG WEAKNESS Time Seen by Provider: 12/10/16 11:31 Hx Obtained From: Patient, Medical Records Mechanism Of Injury: Unknown Pain Intensity: 4 Pain Scale Used: 0-10 Numeric Location: Is Discrete @ - RLE Associated Signs And Symptoms: Positive: Negative Aggravating Factor(s): Standing Alleviating Factor(s): Rest - Allergies/Home Medications Allergies/Adverse Reactions: Allergies Allergy/AdvReac Type Severity Reaction Status Date / Time Ibuprofen Allergy See Comment Verified 01/22/16 17:22 Pregabalin Allergy Swelling Verified 01/22/16 17:22 PMH/Surg Hx/FS Hx/Imm Hx Endocrine/Hematology History: Reports: Hx Anticoagulant Therapy, Hx Diabetes, Hx Anemia - HX OF WITH TRANSFUSIONS IN 06/2013, Other Endocrine/Hematological Disorders - multiple myeloma Denies: Hx Thyroid Disease Cardiovascular History: Reports: Hx Congestive Heart Failure, Hx Coronary Artery Disease, Hx Hypertension, Hx Pacemaker/ICD, Hx Syncope, Other Cardiovascular Problems/Disorders - Cardiac cath, dyslipidemia, Denies: Hx Peripheral Vascular Disease Respiratory History: Reports: Hx Chronic Obstructive Pulmonary Disease (COPD), Hx Sleep Apnea - NO CPAP, Other Respiratory Problems/Disorders - HX OF MULTIPLE MYELOMA GI History: Reports: Hx Ulcer - PUD History: Denies: Hx Dialysis, Hx Renal Disease Musculoskeletal History: Reports: Hx Arthritis, Hx Back Problems, Hx Orthopedic Injury - pelvic fracture 01/2014 Sensory History: Reports: Hx Cataracts - RIGHT EYE, Hx Contacts or Glasses - HOME Denies: Hx Deafness, Hx Hearing Aid Opthamlomology History: Reports: Hx Cataracts - RIGHT EYE, Hx Contacts or Glasses - HOME Neurological History: Reports: Other Neuro Impairments/Disorders - HX OF SYNCOPE Denies: Hx Seizures, Hx Transient Ischemic Attacks (TIA) Psychiatric History: Reports: Hx Anxiety, Hx Depression - anxiety - Cancer History Cancer Type, Location and Year: multiple myeloma Hx Chemotherapy: Yes - last chemo last Friday Hx Radiation Therapy: No Hx Palliative Cancer Treatment: No - Surgical History Surgery Procedure, Year, and Place: cardiac cath/CARDIAC STENT, PACEMAKER, HIP REPLACEMENT Hx Anesthesia Reactions: No - Immunization History Date of Tetanus Vaccine: PT STATES UNSURE Date of Influenza Vaccine: PT STATES UNSURE Infectious Disease History: No Infectious Disease History: Reports: Hx of Known/Suspected MRSA - NOSE Denies: Traveled Outside the [place] in Last 30 Days - Family History Known Family History: Positive: Other - mother had circulation problems, father had angina. - Social History Alcohol Use: Rare Substance Use Type: Reports: None Hx Tobacco Use: Yes Smoking Status (MU): Former Smoker Type: Cigarettes Amount Used/How Often: 1/2 PPD Length of Time of Smoking/Using Tobacco: 20 years Have You Smoked in the Last Year: No Review of Systems Negative: Fever Negative: dysuria, incontinence Positive: Other - RLE pain, chronic. Positive chronic low back pain Positive: Weakness - general All Other Systems Reviewed And Are Negative: Yes Physical Exam Triage Information Reviewed: Yes Vital Signs On Initial Exam: Initial Vitals Temp Pulse Resp Pulse Ox 99.2 F 84 24 96 12/10/16 11:15 12/10/16 11:15 12/10/16 11:15 12/10/16 11:15 Vital Signs Reviewed: Yes Appearance: Positive: Well-Appearing, Obese Skin: Positive: Warm, Skin Color Reflects Adequate Perfusion, Dry Head/Face: Positive: Normal Head/Face Inspection Eyes: Positive: Normal ENT: Positive: Normal ENT inspection Neck: Positive: Supple, Nontender Respiratory/Lung Sounds: Positive: Clear to Auscultation, Breath Sounds Present Cardiovascular: Positive: Normal Abdomen Description: Positive: Nontender Musculoskeletal: Positive: Other - Positive right paralumbar tenderness. Positive right sciatica tenderness Neurological: Positive: Normal. Negative: Focal Deficit @ Psychiatric: Positive: Affect/Mood Appropriate AVPU Assessment: Alert - [place] Coma Scale Coma Scale Total: 15 Diagnostics - Vital Signs Vital Signs Temp Pulse Resp BP Pulse Ox 12/10/16 11:16 99.2 F 88 21 166/74 96 12/10/16 11:15 99.2 F 84 24 96 - Laboratory Lab Results: Lab Results 12/10/16 12/10/16 12/10/16 Range/Units 11:46 11:46 11:55 WBC 5.9 (3.5-10.8) 10^3/ul RBC 4.95 (4.0-5.4) 10^6/ul Hgb 9.4 L (14.0-18.0) g/dl Hct 33 L (42-52) % MCV 66 L (80-94) fL MCH 19 L (27-31) pg MCHC 29 L (31-36) g/dl RDW 21 H (10.5-15) % Plt Count 226 (150-450) 10^3/ul MPV 9 (7.4-10.4) um3 Neut % (Auto) 57.7 (38-83) % Lymph % (Auto) 27.0 (25-47) % [place] % (Auto) 11.7 H (1-9) % Eos % (Auto) 1.8 (0-6) % Baso % (Auto) 1.8 (0-2) % Absolute Neuts (auto) 3.4 (1.5-7.7) 10^3/ul Absolute Lymphs (auto) 1.6 (1.0-4.8) 10^3/ul Absolute Monos (auto) 0.7 (0-0.8) 10^3/ul Absolute Eos (auto) 0.1 (0-0.6) 10^3/ul Absolute Basos (auto) 0.1 (0-0.2) 10^3/ul Absolute Nucleated RBC 0.01 10^3/ul Nucleated RBC % 0.1 Sodium 137 (133-145) mmol/L Potassium 4.3 (3.5-5.0) mmol/L Chloride 102 (101-111) mmol/L Carbon Dioxide 30 (22-32) mmol/L Anion Gap 5 (2-11) mmol/L BUN 18 (6-24) mg/dL Creatinine 1.30 H (0.67-1.17) mg/dL Est GFR ( Amer) 70.8 (>60) Est GFR (Non-Af Amer) 55.1 (>60) BUN/Creatinine Ratio 13.8 (8-20) Glucose 130 H (70-100) mg/dL Lactic Acid 1.4 (0.5-2.0) mmol/L Calcium 8.9 (8.6-10.3) mg/dL Magnesium 2.1 (1.9-2.7) mg/dL Total Bilirubin 0.60 (0.2-1.0) mg/dL AST 15 (13-39) U/L ALT 13 (7-52) U/L Alkaline Phosphatase 149 H (34-104) U/L Troponin I 0.02 (<0.04) ng/mL Total Protein 6.3 L (6.4-8.9) g/dL Albumin 3.8 (3.2-5.2) g/dL Globulin 2.5 (2-4) g/dL Albumin/Globulin Ratio 1.5 (1-3) TSH 0.63 (0.34-5.60) mcIU/mL Result Diagrams: 12/10/16 11:55 12/10/16 11:46 Lab Statement: Any lab studies that have been ordered have been reviewed, and results considered in the medical decision making process. - CT L-Spine CT Interpretation: Positive (See Comments) - COMPRESSION OF L3, L4 AND L5 AGE OF WHICH ARE UNDETERMINED. MULTIPLE LUCENCIES ARE NOTED THROUGHOUT THE VERTEBRAL BODIES AND PELVIS AND SACRUM CONSISTENT WITH HISTORY OF MYELOMA. AT L2-L3 VACUUM DISC PHENOMENON, CALCIFIED DISC AND BROAD-BASED PROTRUSION RESULTS IN A MILD TO MODERATE SPINAL STENOSIS. THERE MAY BE A FAR LEFT LATERAL DISC COMPONENT WHICH MAY IMPINGE UPON THE LEFT EXITING NERVE ROOT. AT L4-L5 BROAD- BASED PROTRUSION WITH FACET AND LIGAMENTOUS HYPERTROPHY RESULTS IN A MODERATE DEGREE OF SPINAL STENOSIS.?? CT Interpretation Completed By: Radiologist - EKG 1200 Cardiac Rate: Other Rate - Paced at 83 bpm Re-Evaluation - Re-Evaluation First Eval Re-Evaluation Time: 14:45 Comment: MD in room to re-evaluate pt. Second Eval Re-Evaluation Time: 16:45 Comment: MD in room to update pt and family member present at bedside on oncologist consult and plan of care involving outpatient f/u. Lower Extremity Course/Dx - Course Course Of Treatment: Consultation: Dr. Rodriguez (Oncologist) at [address] Rodriguez (Oncologist) at 1627 PM Assessment/Plan: Mr. Ferreira comes in complaining that his right leg has been giving out and if he sits in a chair that is too low, he cannot get back up. He described sciatic symptoms without signs or symptoms of cauda equina. CT of his back was obtained as he has a pacer and cannot get an MRI. He has diffuse disease. He essentially insisted on trying to go home stating that he can walk fine with his walker (which he demonstrated) and that he has a chair that he can sit in that he will be able to get out of. - Diagnoses Provider Diagnoses: Sciatica - Physician Notifications Discussed Care Of Patient With: Olman Rodriguez Time Discussed With Above Provider: 15:04 Discharge - Discharge Plan Condition: Stable Disposition: HOME Prescriptions: HYDROcodone/ACETAMIN 5-325 MG* [[place] 5-325 TAB*] 1 tab PO Q6H PRN #20 tab MDD 4 PRN Reason: Pain Patient Education Materials: Hydrocodone/Acetaminophen (By mouth), Sciatica (ED ) Referrals: Marcin Watt MD [Primary Care Provider] - 2 Days The documentation as recorded by the Aidan wilcox Soohyun accurately reflects the service I personally performed and the decisions made by me, Jayme Barriga MD.
== END 2016-12-10 17:30 | disposition home or self-care (01) ==
LOC: ED 11:05
DX: M54.31 Sciatica, right side (principal); J44.9 Chronic obstructive pulmonary disease, unspecified; C90.00 Multiple myeloma not having achieved remission; Z87.891 Personal history of nicotine dependence; K27.9 Peptic ulcer, site unspecified, unspecified as acute or chronic, without hemorrhage or perforation; E11.40 Type 2 diabetes mellitus with diabetic neuropathy, unspecified; E78.5 Hyperlipidemia, unspecified; I50.9 Heart failure, unspecified; I25.10 Atherosclerotic heart disease of native coronary artery without angina pectoris; I10 Essential (primary) hypertension; Z95.0 Presence of cardiac pacemaker
CPT/HCPCS: 36415; 72131; 80053; 83605; 83735; 84443; 84484; 85025; 93005; 99282

== ENCOUNTER 2017-01-24 22:52 | Inpatient (IN) | payer MEDICARE, OTHER ==
--- NOTE | 2017-01-25 00:23 | ED ---
Lower Extremity - HPI Summary HPI Summary: Pt brought in by ambulance after an accidental fall. Pt states he was walking home with his walker when he accidentally fell. Pt now c/o right hip and groin pain. No obvious injury. Pt noted to have +2 pitting edema to BLE. Partner at bedside. Hx of multiple myeloma for which he sees Dr. Whitmore. He has multiple lytic lesions at baseline, but currently is in remission per his partner. He states he has been having pain in his right upper thigh which is stabbing and radiates to the knee. He has had lumbar CT's recently which reveals his lytic lesions are stable. Patient is currently on hydrocodone 5-325 (up to 4 per day ) and also recently added a fentanyl patch for this MM pain. Mechanism of injury was possibly falling directly onto the lateral side of the right hip, but he is unsure. Partner states 2 months ago, he had a fall onto the right leg as well and has been having right thigh pain since that time. He was evaluated in the ED and lumbar CT was performed. He was not given any additional pain medication at that time. He uses a walker at baseline, and sometimes is able to use a cane in the house. He has not felt more weak than usual, but endorses worsening leg pain without worsening back pain. He is currently not on chemotherapy or radiation. - History of Current Complaint Chief Complaint: EDExtremityLower Stated Complaint: FALL/HIP PAIN Time Seen by Provider: 01/24/17 23:19 Hx Obtained From: Patient Mechanism Of Injury: Fall From A Standing Position Onset of Pain: Immediate Onset/Duration: Hours Severity Initially: Moderate Severity Currently: Moderate Pain Intensity: 8 Pain Scale Used: 0-10 Numeric Timing: Intermittent Location: Is Discrete @ - right lateral hip and right groin Associated Signs And Symptoms: Positive: Negative. Negative: Swelling, Redness Aggravating Factor(s): Standing, Ambulation, Movement, Weight Bearing Alleviating Factor(s): Rest Able to Bear Weight: No - Risk Factors Gout Risk Factors: Male DVT Risk Factors: Malignancy - Allergies/Home Medications Allergies/Adverse Reactions: Allergies Allergy/AdvReac Type Severity Reaction Status Date / Time Ibuprofen Allergy See Comment Verified 01/24/17 23:13 Pregabalin Allergy Swelling Verified 01/24/17 23:13 Home Medications: Home Medications Gabapentin CAP(*) [Neurontin 300 CAP(*)] 300 mg PO BEDTIME 01/25/17 [History Confirmed 01/25/17] HYDROcodone/ACETAMIN 5-325 MG* [Levant 5-325 TAB*] 1 tab PO Q4HR MDD 4 01/25/17 [ History Confirmed 01/25/17] Hydrocortisone 0.5% CM(NF) [Hydrocortisone 0.5% CREAM(NF)] 1 applic .SEE ORDER DAILY 01/25/17 [History Confirmed 01/25/17] Prochlorperazine TAB* [Compazine Tab*] 10 mg PO Q6H PRN 01/25/17 [History Confirmed 01/25/17] Warfarin TAB(*) [Coumadin TAB(*)] 3 mg PO DAILY 01/25/17 [History Confirmed ] fentaNYL PATCH 50 MCG/HR* [Duragesic PATCH 50 Mcg/Hr*] 50 mcg TRANSDERM Q72H [History Confirmed 01/25/17] prednisoLONE 0.12% OPTH.SUSP* [Pred Mild 0.12% Opth.SUSP*] 1 drop .SEE ORDER QID 01/25/17 [History Confirmed 01/25/17] PMH/Surg Hx/FS Hx/Imm Hx Previously Healthy: No - MM history Endocrine/Hematology History: Reports: Hx Anticoagulant Therapy, Hx Diabetes, Hx Anemia - HX OF WITH TRANSFUSIONS IN 06/2013, Other Endocrine/Hematological Disorders - multiple myeloma Denies: Hx Thyroid Disease Cardiovascular History: Reports: Hx Congestive Heart Failure, Hx Coronary Artery Disease, Hx Hypertension, Hx Pacemaker/ICD, Hx Syncope, Other Cardiovascular Problems/Disorders - Cardiac cath, dyslipidemia, Denies: Hx Peripheral Vascular Disease Respiratory History: Reports: Hx Chronic Obstructive Pulmonary Disease (COPD), Hx Sleep Apnea - NO CPAP, Other Respiratory Problems/Disorders - HX OF MULTIPLE MYELOMA GI History: Reports: Hx Ulcer - PUD History: Denies: Hx Dialysis, Hx Renal Disease Musculoskeletal History: Reports: Hx Arthritis, Hx Back Problems, Hx Orthopedic Injury - pelvic fracture 01/2014 Sensory History: Reports: Hx Cataracts - RIGHT EYE, Hx Contacts or Glasses - HOME Denies: Hx Deafness, Hx Hearing Aid Opthamlomology History: Reports: Hx Cataracts - RIGHT EYE, Hx Contacts or Glasses - HOME Neurological History: Reports: Other Neuro Impairments/Disorders - HX OF SYNCOPE Denies: Hx Seizures, Hx Transient Ischemic Attacks (TIA) Psychiatric History: Reports: Hx Anxiety, Hx Depression - anxiety - Cancer History Cancer Type, Location and Year: multiple myeloma Hx Chemotherapy: Yes - last chemo last Friday Hx Radiation Therapy: No Hx Palliative Cancer Treatment: No - Surgical History Surgery Procedure, Year, and Place: cardiac cath/CARDIAC STENT, PACEMAKER, HIP REPLACEMENT Hx Anesthesia Reactions: No - Immunization History Date of Tetanus Vaccine: PT STATES UNSURE Date of Influenza Vaccine: PT STATES UNSURE Hx Pertussis Vaccination: No Immunizations Up to Date: Unable to Obtain/Confirm Infectious Disease History: No Infectious Disease History: Reports: Hx of Known/Suspected MRSA - NOSE Denies: Traveled Outside the [place] in Last 30 Days - Family History Known Family History: Positive: Other - mother had circulation problems, father had anginia. - Social History Occupation: Unemployed Lives: With Family Alcohol Use: Rare Hx Substance Use: No Substance Use Type: Reports: None Hx Tobacco Use: Yes Smoking Status (MU): Former Smoker Type: Cigarettes Amount Used/How Often: 1/2 PPD Length of Time of Smoking/Using Tobacco: 20 years Have You Smoked in the Last Year: No Review of Systems Constitutional: Negative Negative: Fever, Chills, Fatigue Eyes: Negative Cardiovascular: Negative Negative: Palpitations, Chest Pain Respiratory: Negative Negative: Shortness Of Breath, Cough Positive: no symptoms reported, see HPI Positive: Arthralgia - right hip pain Negative: Rash, Bruising Positive: Weakness Psychological: Normal All Other Systems Reviewed And Are Negative: Yes Physical Exam Triage Information Reviewed: Yes Vital Signs On Initial Exam: Initial Vitals Temp Pulse Resp BP Pulse Ox 98.8 F 83 18 122/43 97 01/24/17 23:07 01/24/17 23:07 01/24/17 23:07 01/24/17 23:07 01/24/17 23:07 Vital Signs Reviewed: Yes Appearance: Positive: Well-Appearing, No Pain Distress, Well-Nourished Skin: Positive: Warm, Skin Color Reflects Adequate Perfusion Head/Face: Positive: Normal Head/Face Inspection Eyes: Positive: EOMI, JENNIFER, Conjunctiva Clear Neck: Positive: Supple Respiratory/Lung Sounds: Positive: Clear to Auscultation, Breath Sounds Present Cardiovascular: Positive: RRR, Pulses are Symmetrical in both Upper and Lower Extremities Male Genital Exam: Positive: no hernia, inguinal tenderness Musculoskeletal: Positive: Limited @ - flexion and extension of the right hip, Pain @ - right lateral hip. Negative: Edema Left, Edema Right Neurological: Positive: Speech Normal Psychiatric: Positive: Normal Diagnostics - Vital Signs Vital Signs Temp Pulse Resp BP Pulse Ox 01/24/17 23:07 98.8 F 83 18 122/43 97 - Laboratory Result Diagrams: 01/25/17 03:35 01/25/17 03:35 Lab Statement: Any lab studies that have been ordered have been reviewed, and results considered in the medical decision making process. Lower Extremity Course/Dx - Course Course Of Treatment: CT of right thigh and pelvis s/p fall. Leg is not enlarged , no palpable lesions or masses in the leg are noted. No temperature or color changes seen. Pain in the right hip, groin and thigh are intermittent and worse with palpation. Not better with rest. Xray obtained and unable to distinguish if fractures are present. CT obtained showing fractures of the pubis rami. Spoke with Dr. Gilman who stated he would see the patient the next day. Dr. Cerda called and agreed to admit the patient to the floor. He is currently unable to ambulate. Morphine 2mg IV given 1 hour after 2 NORCO's dispensed without relief. He is stable upon discharge to the the floor. - Diagnoses Differential Diagnosis/HQI/PQRI: Positive: Contusion, Fracture (Closed), Fracture (Open) Provider Diagnoses: Fracture of ramus of right pubis Discharge - Discharge Plan Condition: Stable Disposition: ADMITTED TO [facility]
[2017-01-25] MEDS ORDERED: HYDROcodone/ACETAMIN 5-325 MG* 1 TAB PO ONE (00:40)
[2017-01-25] MEDS ORDERED: Morphine INJ* 2 MG/ML 1 ML CARPUJECT IV ONE (01:57)
[2017-01-25] MEDS ORDERED: Acetaminophen TAB* 325 MG PO PRN (03:19)
[2017-01-25] MEDS ORDERED: Senna TAB PO PRN (03:19)
[2017-01-25] MEDS ORDERED: Docusate CAP* 100 MG PO PRN (03:19)
[2017-01-25] MEDS ORDERED: Ondansetron INJ* 2 MG/ML VIAL IV PRN (03:19)
[2017-01-25] MEDS ORDERED: Al Hydrox/Mg Hydrox/Simet LIQ* 30 ML UDC PO PRN (03:19)
[2017-01-25] MEDS ORDERED: Morphine INJ* 2 MG/ML 1 ML SYRINGE (TWO MG - NEW SYRINGE VERSION) IV PRN (03:19)
[2017-01-25] MEDS ORDERED: Dextrose 50% Syringe 50 ML* 25 GM/50 ML SYRINGE IV PUSH PRN (03:22)
[2017-01-25] MEDS ORDERED: Gabapentin CAP(*) 300 MG PO PRN (03:25)
[2017-01-25 03:49] LABS: Hematocrit 24 % (42-52); Hemoglobin 7.1 g/dl (14.0-18.0); Mean Corpuscular HGB Conc 30 g/dl (31-36); Mean Corpuscular Hemoglobin 21 pg (27-31); Mean Platelet Volume 7 um3 (7.4-10.4); Red Blood Count 3.42 10^6/ul (4.0-5.4); White Blood Count 7.2 10^3/ul (3.5-10.8)
[2017-01-25 03:52] LABS: Comments Flag Yes
[2017-01-25 03:54] LABS: Mean Corpuscular Volume 69 fL (80-94); Red Cell Distribution Width 24 % (10.5-15)
[2017-01-25 03:59] LABS: Albumin 3.2 g/dL (3.2-5.2); BUN/Creatinine Ratio 16.3 (8-20); Calcium 8.3 mg/dL (8.6-10.3); EGFR African American 67.8 (>60); EGFR Non-African American 52.7 (>60); Globulin 2.3 g/dL (2-4); Magnesium 2.2 mg/dL (1.9-2.7); Potassium 4.1 mmol/L (3.5-5.0); Total Bilirubin 0.7 mg/dL (0.2-1.0); Total Protein 5.5 g/dL (6.4-8.9)
[2017-01-25] MEDS ORDERED: fentaNYL PATCH 50 MCG/HR TRANSDERM SCH (04:00)
[2017-01-25] MEDS: oxyCODONE/Acetamin 5/325 MG* TAB PO PRN ×3 (04:22→18:10)
[2017-01-25 04:32] LABS: Digoxin 1.1 ng/ml (0.8-2.0)
[2017-01-25] MEDS: Omeprazole CAP* 20 MG PO SCH (05:20)
[2017-01-25] MEDS: PREDNISOLONE 0.12% BOTH EYES SCH ×5 (05:21→20:59)
[2017-01-25] MEDS: OPTH BOTH EYES SCH ×5 (05:21→20:59)
--- NOTE | 2017-01-25 07:11 | HP ---
HISTORY AND PHYSICAL: DATE OF ADMISSION: 01/25/17 PRIMARY CARE PHYSICIAN: Marcin Watt MD CHIEF COMPLAINT: Fall. HISTORY OF PRESENT ILLNESS: This is a 66-year-old male with a past medical history of multiple myeloma, who presented to the emergency room with a fall. The patient states he was in his usual state of health and was walking with his walker and his right leg gave out and he landed on his right side. He was alone , the fall was unwitnessed. He is not sure if he passed out. He stated he was seeing spots and had a significant amount of right groin pain and right buttock pain and presented to the emergency room for further evaluation. The patient denied any lightheadedness or dizziness. No chest pain or shortness of breath. No recent URI illness. No fever. No nausea, vomiting or diarrhea. He did see Ct Taylor at the oncology office on the , made some medication changes, but they had not changed them yet. He has been noted with some recurrent lower extremity swelling for the past week that had been under well control. Otherwise, remaining review of systems is negative. In the emergency room, the patient had imaging that showed right ilium, right superior pubic rami and comminuted inferior right pubic rami fractures. The patient was admitted for further evaluation. PAST MEDICAL HISTORY: 1. Multiple myeloma, followed by Dr. Garcia. According to the patient, he is in remission. 2. Atrial fibrillation. 3. History of congestive heart failure with ejection fraction of 35% to 40%. 4. History of coronary artery disease, status post drug-eluting stent to the LAD. 5. Diabetes. 6. GERD. 7. Hyperlipidemia. 8. Hypertension. 9. Osteoarthritis. 10. Pathologic fracture of the left hip. 11. History of PE in June 2016. 12. Peptic ulcer disease. 13. History of obstructive sleep apnea, not on therapy. MEDICATIONS: Patient provided two different medication lists. These need to be reconciled in the morning with the pharmacy to get a most accurate updated list including changes that Ct Taylor did on the . They are as follows: 1. 400 units capsule daily. 2. Ativan 1 mg daily as needed. 3. Atorvastatin 20 mg p.o. at bedtime. 4. Calcium 500 mg p.o. daily. 5. Colace 200 mg p.o. b.i.d. as needed. 6. Compazine as needed. 7. Coreg 25 mg p.o. b.i.d. 8. Coumadin 30 mg daily. 9. Cyclobenzaprine 10 mg p.o. b.i.d. as needed. 10. Digoxin 125 mcg oral daily. 11. Diltiazem ER 120 mg daily. 12. Fentanyl 50 mcg q.72 hours. 13. Ferrex 150 mg p.o. b.i.d. 14. Lasix 20 mg p.o. daily. 15. Gabapentin 300 mg at bedtime as needed. 16. Glipizide XL 5 mg daily. 17. Hydrocodone/acetaminophen 5/325 mg q.4 hours as needed. 18. Hydrocortisone cream topical as needed. 19. Magnesium 1000 mg p.o. daily. 20. Metformin 500 mg p.o. b.i.d. 21. Zofran 4 mg every 6 hours as needed for nausea. 22. Prednisolone 0.12% ophthalmic 4 times a day. 23. Prochlorperazine 10 mg 4 times a day as needed. 24. Protonix 40 mg daily. 25. Sertraline 100 mg daily. 26. Valacyclovir 1000 mg daily. ALLERGIES: IBUPROFEN and PREGABALIN. FAMILY HISTORY: His sister with CVA. Two brothers are healthy. SOCIAL HISTORY: The patient lives at home with his partner, Sergey, who is his healthcare proxy. He quit smoking 5 years ago. At that time, he smoked a pack per day for 30 years. Rare alcohol use. 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 CODE STATUS: Full code. REVIEW OF SYSTEMS: A 14-point review of systems is as mentioned in the HPI, pertinent positives and negatives as mentioned, otherwise negative. PHYSICAL EXAMINATION GENERAL: In no acute distress, resting comfortably, with his parents at the bedside. VITAL SIGNS: Temp 98.8, pulse rate 82, respiratory rate 18, oxygen saturation 97% on 2 L, blood pressure 122/43. HEENT: Head; normocephalic. Eyes; pupils pinpoint, reactive, anicteric. Oropharynx, mucous membranes are moist. No erythema, no exudate. NECK: Supple. No lymphadenopathy. RESPIRATORY: Diminished breath sounds. No wheezing, rhonchi, or rales. CARDIAC: Regular rate and rhythm. Harsh systolic murmur heard most prominent at the right sternal base. ABDOMEN: Soft, nontender, nondistended. EXTREMITIES: The patient with significant right groin pelvic tenderness. +1 pretibial edema. +1 DPs. Sensation intact. Able to move his lower extremities , but with significant difficulty of the right lower extremity. NEUROLOGIC: Alert and oriented x3. No focal neurologic deficits. RADIOGRAPHIC DATA: CT of pelvis shows acute right ilium, right superior pubic rami and comminuted inferior right pubic rami fractures. Left total hip arthroplasty with chronic changes and atrophic calcifications as above. Advanced arthropathy in the lower lumbar spine. Old healed left inferior pubic rami fracture. ASSESSMENT AND PLAN: This is a 66-year-old male with multiple comorbidities including multiple myeloma, not on current treatment, unclear if he is in remission, who presented to the emergency room with a fall after right leg weakness, found to have several fractures within his right ilium and pubic rami. Fall. Assessment: As mentioned, the patient with fracture of his right pubic rami and ilium. Ortho has been contacted. Plan will be to follow up with Ortho. If this is considered pathologic, which is unclear, consider Oncology consultation as well. We will continue him on pain control with a bowel regimen. Going to hold his Coumadin in case he is a surgical candidate. We will allow him to have p.o. and check his labs including CBC, CMP, and INR. CHRONIC MEDICAL PROBLEMS: Diabetes: Hold his oral agents. Start him on Lispro sliding scale. Gastroesophageal reflux disease: Place him on omeprazole and place Protonix. Depression: He was given sertraline. History of paroxysmal atria fibrillation: As mentioned, hold his Coumadin for now in case he is a surgical candidate and check his INR. This will need to be resumed if Ortho does not feel that he is an appropriate surgical candidate. Hyperlipidemia: Resume his atorvastatin. Chronic pain as mentioned. Resume his fentanyl, Ativan. Atrial fibrillation: Continue his diltiazem, Coreg and Lasix. Multiple myeloma: It does not appear he is on treatment at this time. As mentioned, consider touching base with Oncology regarding his admission. DVT prophylaxis: The patient scores high risk. I will check an INR as he is on Coumadin. Code status: Full code. FEN: Place him on a heart-healthy diet. TIME SPENT: Greater than 75 minutes was spent doing the history and physical, more than half the time was spent in direct patient contact. [id number]/[facility] #: [id number] ABELINOD
[2017-01-25] MEDS: fentaNYL Patch Check Q Shift 1 NOTE SCH ×2 (07:20→18:49)
--- NOTE | 2017-01-25 07:32 | RAD ---
Indication: Right hip pain, fall AP view the pelvis and right hip demonstrates fracture of the right inferior pubic rami. There may be a nondisplaced fracture of the right superior pubic ramus. Degenerative changes of the right hip is noted. The left hip demonstrates left hip replacement with heterotopic ossification. IMPRESSION: Fractures of the right superior and inferior pubic ramus. Left hip replacement.
--- NOTE | 2017-01-25 08:09 | RAD ---
Indication: Right hip pain after fall. CT of the pelvis was performed without IV contrast. Degenerative changes of lower lumbar spine is noted. There is an oblique fracture of the right ilium extending to the right sacroiliac joint with minimal displacement. There is suggestion of lucent areas within the ileum. Pathologic fracture is not totally excluded. There are fractures of the right superior and inferior pubic ramus. The left iliac crest is intact without fracture. The lower lumbar spine is grossly unremarkable. Heterotopic ossification is noted along the left iliopsoas muscle. Patient status post left hip replacement with heterotopic ossification noted. There is evidence of a healing left inferior pubic ramus fracture. No pelvic masses are noted. The urinary bladder and small bowel are grossly unremarkable. IMPRESSION: Fracture through the right ilium extending along the long axis of the iliac crest and parallel to the sacroiliac joint. Fractures of the right superior and inferior pubic rami. There are small lucent areas scattered throughout the pelvis and the possibility of a pathologic fracture should BE considered. Degenerative changes of lower lumbar spine. Heterotopic ossification is noted along the iliopsoas muscle and left hip prosthesis. Old left healed inferior pubic ramus fracture.
--- NOTE | 2017-01-25 08:12 | RAD ---
Indication: Right hip pain and right lower extremity pain. CT of the right femur was obtained in the axial plane. Sagittal and coronal reconstructed images Again noted are fractures of the right superior and inferior pubic ramus. The right femoral head is otherwise unremarkable. No fracture of the femur is noted. There are hyperdense lesions in the distal diaphysis of the femur within the medullary canal measuring 3.4 and 2.4 cm. Underlying neoplastic process should BE considered. Other lucent areas are scattered throughout the femur. No evidence of soft tissue masses are noted. IMPRESSION: No fracture of the right femur is noted. Hyperdense lesions in the medullary cavity of the right femur is noted may represent neoplastic process. Subtle lucent lesions are present throughout the right femur. Underlying myeloma is not excluded.
--- NOTE | 2017-01-25 09:02 | RAD ---
Indication: Fall, loss of consciousness. CT of the brain was performed without IV contrast. Ventricular structures are midline. No midline shift is noted. The extraction spaces are unremarkable. Mastoid air cells and paranasal sinuses are otherwise unremarkable. There is no evidence of intracranial mass or hemorrhage. Mastoid air cells and paranasal sinuses are unremarkable. IMPRESSION: No intracranial mass or hemorrhage is noted.
[2017-01-25] MEDS: ValACYclovir (*) 1 GM TAB PO SCH (09:37)
[2017-01-25] MEDS: Sertraline* 100 MG TAB PO SCH (09:38)
[2017-01-25] MEDS: Cyclobenzaprine TAB* 10 MG PO PRN (09:38)
[2017-01-25] MEDS: Magnesium Oxide TAB* 400 MG PO SCH (09:38)
[2017-01-25] MEDS: Diltiazem CD CAP* 120 MG PO SCH (09:38)
[2017-01-25] MEDS: Furosemide TAB* 20 MG PO SCH (09:39)
[2017-01-25] MEDS: Carvedilol TAB* 25 MG PO SCH ×2 (09:39→20:58)
[2017-01-25] MEDS: Insulin LISPRO* 1 UNITS UNIT SUBCUT SCH ×3 (09:42→18:11)
--- NOTE | 2017-01-25 10:56 | PN ---
Progress Note - Progress Note Date of Service: 01/25/17 SOAP: Subjective: []No pain lying in bed. Fell at home trying to navigate an awkward wall in house. Had been doing well before that. Energy stable, breathing good and no SOB. Significant PmHx: 1. Multiple Myeloma. Presented with advanced disease but after induction followed by maintenance therapy has done well. 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 2. Pathologic fracture left hip. Sever destructive bony disease of pelvis at presentation. After disease response had reconstruction of left hip at [facility]. Had done well since hip replacement. 3. CHF and a-fib. Admission in November with a-fib and CHF. Followed by cardiology and stable recently,. 4. Recurrent pneumonia in spring lead to holding therapy for myeloma. 5. Iron deficiency. Out patient oral iron, had not had extensive evaluation. Acetaminophen (Tylenol Tab*) 650 mg PO Q4H PRN PRN Reason: FEVER/PAIN Al Hydrox/Mg Hydrox/Simethicone (Maalox Plus*) 30 ml PO Q6H PRN PRN Reason: INDIGESTION Atorvastatin Calcium (Lipitor*) 20 mg PO 2100 [facility] Carvedilol (Coreg Tab*) 25 mg PO BID [facility] Last Admin: 01/25/17 09:39 Dose: 25 mg Cyclobenzaprine HCl (Flexeril Tab*) 10 mg PO BID PRN PRN Reason: SPASMS Last Admin: 01/25/17 09:38 Dose: 10 mg Dextrose (D50w Syringe 50 Ml*) 12.5 gm IV PUSH .FOR FS < 60 - SS PRN PRN Reason: FS < 60 Digoxin (Lanoxin Tab*) 0.125 mg PO 1700 [facility] Diltiazem HCl (Cardizem Cd Cap*) 120 mg PO DAILY [facility] Last Admin: 01/25/17 09:38 Dose: 120 mg Docusate Sodium (Colace Cap*) 100 mg PO BID PRN PRN Reason: CONSTIPATION Fentanyl (Duragesic Patch 50 Mcg/Hr*) 50 mcg TRANSDERM Q72H [facility] Last Admin: 01/25/17 05:21 Dose: 50 mcg Furosemide (Lasix Tab*) 20 mg PO DAILY [facility] Last Admin: 01/25/17 09:39 Dose: 20 mg Gabapentin (Neurontin Cap(*)) 300 mg PO BEDTIME PRN PRN Reason: SLEEP Insulin Human Lispro (Humalog*) 0 units SUBCUT AC [facility] PRN Reason: Protocol Last Admin: 01/25/17 09:42 Dose: 2 unit Lorazepam (Ativan Tab(*)) 1 mg PO Q6H PRN PRN Reason: ANXIETY Magnesium Oxide (Magox 400 Tab*) 800 mg PO DAILY [facility] Last Admin: 01/25/17 09:38 Dose: 800 mg Morphine Sulfate (Morphine Inj (Syringe)*) 2 mg IV Q4H PRN PRN Reason: PAIN Omeprazole (Prilosec Cap*) 20 mg PO 0600 [facility] Last Admin: 01/25/17 05:20 Dose: 20 mg Ondansetron HCl (Zofran Inj*) 4 mg IV Q4H PRN PRN Reason: NAUSEA/VOMITING Oxycodone/Acetaminophen (Percocet 5/325 Tab*) 1 tab PO Q4H PRN PRN Reason: Pain Last Admin: 01/25/17 04:22 Dose: 1 tab Pharmacy Profile Note (Fentanyl Patch Check Q Shift) 1 note N/A 0700,1900 [facility] Last Admin: 01/25/17 07:20 Dose: 1 note Prednisolone Acetate (Pred Mild 0.12% Opth.Susp*) 1 drop BOTH EYES QID [facility] Last Admin: 01/25/17 09:41 Dose: 1 drop Senna (Senokot Tab*) 1 tab PO BID PRN PRN Reason: CONSTIPATION Sertraline HCl (Zoloft*) 100 mg PO DAILY [facility] Last Admin: 01/25/17 09:38 Dose: 100 mg Valacyclovir HCl (Valtrex 1 Gm(*)) 1 gm PO DAILY [facility] PRN Reason: Protocol Last Admin: 01/25/17 09:37 Dose: 1 gm Objective: [] Vital Signs Temp Pulse Resp BP Pulse Ox 97.8 F 79 16 112/47 94 01/25/17 07:39 01/25/17 07:39 01/25/17 09:38 01/25/17 07:39 01/25/17 07:39 HEENT - Pale RRR on my exam today. S1S2 II/ systolic murmur. +BS and no HSM lying in bed and did no move him, differed MK exam. Assessment: []66 year old with MM now off therapy and in remission but will eventually relapse. Has had mutliple medical problems but now admission with pelvic fracture. Plan: []1. Plevic fracture. Case discussed with Dr. Gilman and fracture likely second to fall rather then pathologic fracture. At this time likely medical management. 2. Myeloma. Has been in remission, last full blood work in November. Will repeat today. Overall appearance of bony disease in CT is unchanged. 3. Anemia. Multifactorial but has iron deficiency. Possible additional acute bleed. Replete IV iron and Tx PRBC for further drop in counts. 4. CHF/Afib - has been stable, low fat diet. Rate control.
[2017-01-25] MEDS ORDERED: Ferric Gluconate IV* 25 MG in NS 0.9% 50 ML* 50 ML IVPB ONE (11:30)
[2017-01-25 13:13] LABS: Hematocrit 27 % (42-52)
[2017-01-25 13:14] LABS: Comments Flag Yes
[2017-01-25] MEDS ORDERED: oxyCODONE/Acetamin 5/325 MG* TAB PO PRN (14:56)
--- NOTE | 2017-01-25 15:29 | CONS ---
CONSULTATION REPORT: Thank you for this consult. DATE OF CONSULT/DICTATION: 01/25/17 CHIEF COMPLAINT: Right hip pain. HISTORY OF PRESENT ILLNESS: Mr. Ferreira is a 66-year-old male, who was brought to the [facility] Emergency Room by ambulance on 01/25/17, with right hip pain after a fall. Patient reports he was walking with his walker, when his right leg gave out and he fell landing on his right thigh. Fall was unwitnessed. The patient is unsure whether he had loss of consciousness or head trauma. He does report he saw some spots and had a significant amount of right thigh pain, when he realized he had fallen. Patient does report some right thigh pain in the past. He has significant medical history of multiple myeloma with prior remission, but multiple bone lesions treated with radiation in the past. Per his partner, he was told in the past he is a poor surgical candidate. Recently, the patient reports some right lower extremity pain and swelling. He does have baseline neuropathy distal bilateral lower extremities. Patient was found to have pelvic fractures upon admission and I am consulted for orthopedic fracture care. PAST MEDICAL HISTORY: 1. Multiple myeloma followed by Dr. Whitmore, according to the patient he is in remission. 2. Atrial fibrillation. 3. Congestive heart disease with ejection fraction 35% to 40%. 4. History of coronary artery disease with blockages status post stenting. 5. Diabetes. 6. GERD. 7. Hyperlipidemia. 8. Hypertension. 9. Osteoarthritis. 10. Pathologic fracture of the left hip in the past treated with left total hip arthroplasty. 11. Peptic ulcer disease. 12. Obstructive sleep apnea. PAST SURGICAL HISTORY: Left total hip arthroplasty, cardiac stenting. CURRENT MEDICATIONS: 1. Ativan 1 mg p.o. daily. 2. Atorvastatin 20 mg p.o. q.h.s. 3. Calcium 500 mg p.o. daily. 4. Colace 200 mg p.o. b.i.d. 5. Compazine p.r.n. 6. Coreg 25 mg p.o. b.i.d. 7. Coumadin unknown dosage p.o. daily. 8. Cyclobenzaprine 10 mg b.i.d., p.r.n. 9. Digoxin 125 mcg p.o. daily. 10. Diltiazem ER 120 mg p.o. daily. 11. Fentanyl 50 mcg q. 72 hours. 12. Ferrex 150 mg p.o. b.i.d. 13. Lasix 20 mg p.o. daily. 14. Gabapentin 300 mg p.o. q.h.s., p.r.n. 15. Glipizide XL 5 mg p.o. daily. 16. Hydrocortisone cream as needed. 17. Hydrocodone 5/325 mg q. 4 hours p.r.n. for pain. 18. Metformin 500 mg p.o. b.i.d. 19. Magnesium 1000 mg p.o. daily. 20. Zofran 4 mg p.r.n. 21. Prednisolone 0.12% ophthalmic drops 4 times a day. 22. Protonix 40 mg p.o. daily. 23. Sertraline 100 mg p.o. daily. 24. Valacyclovir 1000 mg p.o. daily. ALLERGIES: IBUPROFEN, PREGABALIN. FAMILY HISTORY: Sister with a prior CVA. SOCIAL HISTORY: The patient lives at home with his partner Sergey who is his healthcare proxy. No current tobacco use, although he does have a long history , rare alcohol use, currently not working. Normally he ambulates with a rolling walker. REVIEW OF SYSTEMS: Fourteen systems were reviewed with the patient today. Positive for right hip pain, right buttock pain, right thigh pain, distal lower extremity numbness, right lower extremity weakness, history of recent fall, and some dizziness. Otherwise, the patient reports review of systems is negative and not relevant. PHYSICAL EXAM: Vitals: Temperature 98.9, pulse 88, blood pressure 137/47. General: The patient is a morbidly obese male in no apparent distress, alert and oriented x3. Pleasant mood and appropriate affect. Accompanied by a supportive partner at the bed side. Gait is not assessed. HEENT: Atraumatic, normocephalic. Pupils equal and reactive to light. Chest: Unlabored breathing. Bilateral upper extremities skin is intact and scattered bruises. Forward flexion of the shoulders to 140 degrees without pain. 5/5 medication technician strength. Right lower extremity, patient skin is intact. No abrasions or open wounds. Tenderness to palpation along the SI joint region and buttock. Pain with ap and lateral pelvic compression but no palpable instability. Tenderness to palpation along the proximal thigh. No tenderness to palpation around the knee. Decreased sensation to light touch from the knee distally. Less than 3 seconds capillary refill distally, but I cannot palpate a DP pulse. He demonstrates EHL, FHL, dorsiflexion, plantar flexion, 4+/5 strength. DIAGNOSTIC STUDIES/LAB DATA: Radiographs: Multiple radiographs were reviewed on the PAC system. These show a vertically oriented fracture of the pelvic iliac bone, parallel to the SI joint also superior and inferior pubic rami fractures on the right. Laboratory values: White blood cell count 7.2, hematocrit 24, platelets 251. No left shift. INR 3.7. Sodium 135, potassium 4.1, BUN and creatinine 22 and 1.35, glucose 138, alk phos 121, total protein 5.5. ASSESSMENT AND PLAN: Mr. Ferreira is a 66-year-old male status post fall at his home with right sided pelvic fractures. He has minimally displaced fracture of the right iliac bone, as well as the right superior and inferior pubic rami fractures. The patient has significant past medical history of multiple myeloma with multiple lesions in the bone. He has been treated with radiation therapy in the past. Dr. Whitmore has been consulted and I agree with this. Further workup of the lytic lesions will be discussed with oncology and medical team. The patient's pelvic fracture is right sided and vertically oriented. I am unsure whether these will be stable and allow him to ambulate. I would make him toe-touch weightbearing on the right lower extremity, and try to ambulate with a rolling walker. I did give the patient both operative and nonoperative treatment options. He understands if these fractures were unstable and displace, he will need surgical intervention. For now the patient wishes to avoid surgery if at all possible. I offered him transfer to a tertiary care center to speak with the trauma surgeon, but he does not wish to proceed with surgery at this time. I will follow the fractures closely. If he has increased pain with mobilization attempts, then we will repeat x-rays to ensure no displacement. If these fractures prove to be unstable, I will once again urge the patient to have evaluation by trauma science specialist. For now, I would recommend PT/OT. Once again toe-touch weightbearing right lower extremity, frequent skin checks and position changes to avoid any sacral ulcers. Orthopedics will follow along with this patient. [id number]/[facility] #: [id number] [facility]PITALJustin
[2017-01-25] MEDS: Digoxin TAB* 0.125 MG PO SCH (16:45)
[2017-01-25] MEDS: Atorvastatin* 20 MG TAB PO SCH (20:58)
[2017-01-26] MEDS: oxyCODONE/Acetamin 5/325 MG* TAB PO PRN (01:24)
[2017-01-26] MEDS: LORazepam TAB(*) 1 MG PO PRN ×2 (02:29→14:35)
[2017-01-26] MEDS: fentaNYL Patch Check Q Shift 1 NOTE SCH ×2 (06:36→18:42)
[2017-01-26 07:31] LABS: Comments Flag Yes; Hematocrit 22 % (42-52); Hemoglobin 6.6 g/dl (14.0-18.0); Mean Corpuscular HGB Conc 30 g/dl (31-36); Mean Corpuscular Hemoglobin 21 pg (27-31); Mean Corpuscular Volume 70 fL (80-94); Mean Platelet Volume 8 um3 (7.4-10.4); Red Blood Count 3.18 10^6/ul (4.0-5.4); Red Cell Distribution Width 24 % (10.5-15); White Blood Count 13.6 10^3/ul (3.5-10.8)
[2017-01-26 07:32] LABS: Add Diff/Slide Review? Slide Review Added
[2017-01-26 07:39] LABS: BUN/Creatinine Ratio 14.8 (8-20); Calcium 8.3 mg/dL (8.6-10.3); EGFR African American 72.1 (>60); EGFR Non-African American 56.1 (>60); Potassium 4.6 mmol/L (3.5-5.0)
[2017-01-26] MEDS: Cyclobenzaprine TAB* 10 MG PO PRN ×2 (07:58→21:09)
[2017-01-26 08:18] LABS: Microcytosis 1+
[2017-01-26 08:19] LABS: Hypochromasia 1+; Platelet Morphology Large; Polychromasia 1+
--- NOTE | 2017-01-26 09:19 | PN ---
Subjective Date of Service: 01/26/17 Interval History: HOSPITALIST PROGRESS NOTE Patient seen and examined at bedside. He is confused today. States he needs to go home today, will drive to [place] to meet his partner. Denies pain. Tolerating diet and appetite is very good. Family History: Unchanged from Admission Social History: Unchanged from Admission Past Medical History: Unchanged from Admission Objective Active Medications: Acetaminophen (Tylenol Tab*) 650 mg PO Q4H PRN PRN Reason: FEVER/PAIN Al Hydrox/Mg Hydrox/Simethicone (Maalox Plus*) 30 ml PO Q6H PRN PRN Reason: INDIGESTION Atorvastatin Calcium (Lipitor*) 20 mg PO 2100 [facility] Last Admin: 01/25/17 20:58 Dose: 20 mg Carvedilol (Coreg Tab*) 25 mg PO BID [facility] Last Admin: 01/25/17 20:58 Dose: 25 mg Cyclobenzaprine HCl (Flexeril Tab*) 10 mg PO BID PRN PRN Reason: SPASMS Last Admin: 01/26/17 07:58 Dose: 10 mg Dextrose (D50w Syringe 50 Ml*) 12.5 gm IV PUSH .FOR FS < 60 - SS PRN PRN Reason: FS < 60 Digoxin (Lanoxin Tab*) 0.125 mg PO 1700 [facility] Last Admin: 01/25/17 16:45 Dose: 0.125 mg Diltiazem HCl (Cardizem Cd Cap*) 120 mg PO DAILY [facility] Last Admin: 01/25/17 09:38 Dose: 120 mg Docusate Sodium (Colace Cap*) 100 mg PO BID PRN PRN Reason: CONSTIPATION Fentanyl (Duragesic Patch 50 Mcg/Hr*) 50 mcg TRANSDERM Q72H [facility] Last Admin: 01/25/17 05:21 Dose: 50 mcg Furosemide (Lasix Tab*) 20 mg PO DAILY [facility] Last Admin: 01/25/17 09:39 Dose: 20 mg Gabapentin (Neurontin Cap(*)) 300 mg PO BEDTIME PRN PRN Reason: SLEEP Insulin Human Lispro (Humalog*) 0 units SUBCUT AC HERMAN PRN Reason: Protocol Last Admin: 01/25/17 18:11 Dose: 2 unit Insulin Human Lispro (Humalog*) 0 units SUBCUT ACHS HERMAN PRN Reason: Protocol Lorazepam (Ativan Tab(*)) 1 mg PO Q6H PRN PRN Reason: ANXIETY Last Admin: 01/26/17 02:29 Dose: 1 mg Magnesium Oxide (Magox 400 Tab*) 800 mg PO DAILY [facility] Last Admin: 01/25/17 09:38 Dose: 800 mg Morphine Sulfate (Morphine Inj (Syringe)*) 2 mg IV Q4H PRN PRN Reason: PAIN Omeprazole (Prilosec Cap*) 20 mg PO 0600 [facility] Last Admin: 01/25/17 05:20 Dose: 20 mg Ondansetron HCl (Zofran Inj*) 4 mg IV Q4H PRN PRN Reason: NAUSEA/VOMITING Oxycodone/Acetaminophen (Percocet 5/325 Tab*) 2 tab PO Q6H PRN PRN Reason: SEVERE PAIN Oxycodone/Acetaminophen (Percocet 5/325 Tab*) 1 tab PO Q6H PRN PRN Reason: Moderate Pain Last Admin: 01/26/17 01:24 Dose: 1 tab Pharmacy Profile Note (Fentanyl Patch Check Q Shift) 1 note N/A 0700,1900 [facility] Last Admin: 01/26/17 06:36 Dose: 1 note Prednisolone Acetate (Pred Mild 0.12% Opth.Susp*) 1 drop BOTH EYES QID [facility] Last Admin: 01/25/17 20:59 Dose: 1 drop Senna (Senokot Tab*) 1 tab PO BID PRN PRN Reason: CONSTIPATION Sertraline HCl (Zoloft*) 100 mg PO DAILY [facility] Last Admin: 01/25/17 09:38 Dose: 100 mg Valacyclovir HCl (Valtrex 1 Gm(*)) 1 gm PO DAILY [facility] PRN Reason: Protocol Last Admin: 01/25/17 09:37 Dose: 1 gm Vital Signs 01/26/17 01/26/17 01/26/17 04:29 07:17 07:58 Temperature 98.4 F Pulse Rate 98 Respiratory 20 16 18 Rate Blood Pressure 95/62 (mmHg) O2 Sat by Pulse 95 Oximetry Oxygen Devices in Use Now: None Appearance: Elderly obese male lying in bed in NAD. Eyes: No Scleral Icterus Ears/Nose/Mouth/Throat: Mucous Membranes Moist Neck: Trachea Midline Respiratory: Symmetrical Chest Expansion and Respiratory Effort, Clear to Auscultation Cardiovascular: RRR - Normal S1 and S2, +SM Abdominal: NL Sounds; No Tenderness; No Distention Extremities: - - Bilateral trace LE edema Neurological: - - AAOx2 (self and place), ARIZA Lines/Tubes/Other Access: Clean, Dry and Intact Peripheral IV Nutrition: Taking PO's Result Diagrams: 01/26/17 06:30 01/26/17 06:30 Assess/Plan/Problems-Billing Assessment: Mr. Ferreira is a 66yo M with PMH of multiple myeloma, Afib, systolic CHF with EF 35-40%, CAD, type 2 DM, GERD, HLD, HTN, PE, PUD, ELIZABETH, who presented to ED after a fall, found to have a pelvic fracture. - Patient Problems (1) Pelvic fracture Comment: - Ortho input appreciated - Dr. Rios offered operative and non- operative options and patient chose a non-operative approach. - Plan for ambulation with walker toe touch WB on the right as tolerated. - Unable to stand up with PT yesterday and for now requires a Kay lift. - Continue pain management. - Will request PMRU evaluation, but realistically he'll likely need SNF placement for rehab. Partner would prefer a place in [place]. (2) Delirium Comment: - Patient is confused and does not have the capacity to leave the hospital AMA. - CT brain was negative for bleed. - Likely secondary to opiate use. - Continue supportive care. - May require low dose Risperdal if he becomes more agitated. (3) Anemia associated with acute blood loss Comment: - Likely associated with pelvic hematoma - will transfuse 2 PRBCs and monitor H/H. - VS are stable. (4) Atrial fibrillation Comment: - Patient sounds regular at this time. - With his anemia, will hold Warfarin and let his INR drift down. At this point , his risks for bleeding and complications surpasses his risk of stroke. - Continue digoxin, diltiazem, and Coreg. (5) Systolic CHF Comment: - Stable. - Continue Coreg, Furosemide. (6) Type 2 diabetes mellitus Comment: - Continue Lispro SS and add low dose baseline insulin. (7) Multiple myeloma Comment: - Oncology input appreciated. (8) DVT prophylaxis Comment: - INR still therapeutic for now. - SCDs. (9) Full code status Status and Disposition: Inpatient for management of pelvic fracture requiring >48h for stabilization. Patient's partner (Sergey Parsons) was called and updated.
[2017-01-26] MEDS: Insulin LISPRO* 1 UNITS UNIT SUBCUT SCH ×8 (09:34→21:01)
[2017-01-26] MEDS: OPTH BOTH EYES SCH ×4 (10:15→20:58)
[2017-01-26] MEDS: ValACYclovir (*) 1 GM TAB PO SCH (10:15)
[2017-01-26] MEDS: Furosemide TAB* 20 MG PO SCH (10:15)
[2017-01-26] MEDS: Diltiazem CD CAP* 120 MG PO SCH (10:15)
[2017-01-26] MEDS: Magnesium Oxide TAB* 400 MG PO SCH (10:15)
[2017-01-26] MEDS: Omeprazole CAP* 20 MG PO SCH (10:15)
[2017-01-26] MEDS: Sertraline* 100 MG TAB PO SCH (10:15)
[2017-01-26] MEDS: Carvedilol TAB* 25 MG PO SCH ×2 (10:15→23:00)
[2017-01-26] MEDS: PREDNISOLONE 0.12% BOTH EYES SCH ×4 (10:15→20:58)
--- NOTE | 2017-01-26 13:49 | PN ---
Progress Note - Progress Note Date of Service: 01/26/17 SOAP: Subjective: [Pt is doing well. Continues to have pelvic pain with movement but is controlled with medication. Denies CP/SOB or F/C. Objective: 66 y/o M NAD, lying comfortably in bed, A&Ox3 RLE- skin intact, calf soft nontender, pain with ROM of hip, +DF/PF, +2 DP pulse , SILT Vital Signs Temp Pulse Resp BP Pulse Ox 99.1 F 97 18 112/45 96 01/26/17 11:56 01/26/17 11:56 01/26/17 11:56 01/26/17 11:56 01/26/17 11:56 Laboratory Results - last 24 hr 01/25/17 01/26/17 01/26/17 16:47 06:30 06:30 WBC 13.6 H RBC 3.18 L Hgb 6.6 L Hct 22 L MCV 70 L MCH 21 L MCHC 30 L RDW 24 H Plt Count 273 MPV 8 Neut % (Auto) 77.9 Lymph % (Auto) 10.1 L Fre[place] % (Auto) 11.6 H Eos % (Auto) 0.1 Baso % (Auto) 0.3 Absolute Neuts (auto) 10.6 H Absolute Lymphs (auto) 1.4 Absolute Monos (auto) 1.6 H Absolute Eos (auto) 0 Absolute Basos (auto) 0 Absolute Nucleated RBC 0.02 Nucleated RBC % 0.1 Platelet Morphology Large Normal RBC Morphology Not Reportable Polychromasia 1+ Hypochromasia 1+ Microcytosis 1+ Elliptocytes 1+ INR (Anticoag Therapy) 2.61 H Sodium Potassium Chloride Carbon Dioxide Anion Gap BUN Creatinine Est GFR ( Amer) Est GFR (Non-Af Amer) BUN/Creatinine Ratio Glucose POC Glucose (mg/dL) 184 H Calcium Blood Type Antibody Screen Crossmatch 01/26/17 01/26/17 01/26/17 06:30 06:30 07:34 WBC RBC Hgb Hct MCV MCH MCHC RDW Plt Count MPV Neut % (Auto) Lymph % (Auto) Freestone % (Auto) Eos % (Auto) Baso % (Auto) Absolute Neuts (auto) Absolute Lymphs (auto) Absolute Monos (auto) Absolute Eos (auto) Absolute Basos (auto) Absolute Nucleated RBC Nucleated RBC % Platelet Morphology Normal RBC Morphology Polychromasia Hypochromasia Microcytosis Elliptocytes INR (Anticoag Therapy) Sodium 134 Potassium 4.6 Chloride 100 L Carbon Dioxide 28 Anion Gap 6 BUN 19 Creatinine 1.28 H Est GFR ( Amer) 72.1 Est GFR (Non-Af Amer) 56.1 BUN/Creatinine Ratio 14.8 Glucose 221 H POC Glucose (mg/dL) 245 H Calcium 8.3 L Blood Type O Positive Antibody Screen Negative Crossmatch See Detail 01/26/17 13:05 WBC RBC Hgb Hct MCV MCH MCHC RDW Plt Count MPV Neut % (Auto) Lymph % (Auto) Fre[place] % (Auto) Eos % (Auto) Baso % (Auto) Absolute Neuts (auto) Absolute Lymphs (auto) Absolute Monos (auto) Absolute Eos (auto) Absolute Basos (auto) Absolute Nucleated RBC Nucleated RBC % Platelet Morphology Normal RBC Morphology Polychromasia Hypochromasia Microcytosis Elliptocytes INR (Anticoag Therapy) Sodium Potassium Chloride Carbon Dioxide Anion Gap BUN Creatinine Est GFR ( Amer) Est GFR (Non-Af Amer) BUN/Creatinine Ratio Glucose POC Glucose (mg/dL) 268 H Calcium Blood Type Antibody Screen Crossmatch Assessment: 66 y/o M nondisplaced stable Right iliac bone fx, with superior and inferior pubic rami fx. H/O MM with multiple bone lesion Plan: Hospitalist and oncology co managing Cont conservative treatment TTWB RLE- cont PT/OT frequent skin checks and change in position to prevent sacral ulcers Ortho will cont to follow to assure fxs remain stable
[2017-01-26] MEDS: Insulin GLARGINE(*) 1 UNITS UNIT SUBCUT SCH (18:05)
[2017-01-26] MEDS: Digoxin TAB* 0.125 MG PO SCH (18:06)
[2017-01-26] MEDS: Atorvastatin* 20 MG TAB PO SCH (20:57)
[2017-01-27] MEDS: fentaNYL Patch Check Q Shift 1 NOTE SCH (07:01)
[2017-01-27 08:02] LABS: Mean Corpuscular Volume 73 fL (80-94); Mean Platelet Volume 8 um3 (7.4-10.4)
[2017-01-27 08:04] LABS: Hematocrit 20 % (42-52); Mean Corpuscular HGB Conc 31 g/dl (31-36); Mean Corpuscular Hemoglobin 23 pg (27-31); Red Blood Count 2.77 10^6/ul (4.0-5.4); Red Cell Distribution Width 26 % (10.5-15); White Blood Count 12.6 10^3/ul (3.5-10.8)
[2017-01-27 08:08] LABS: Comments Flag Yes
[2017-01-27 08:10] LABS: Hemoglobin 6.3 g/dl (14.0-18.0)
[2017-01-27 08:12] LABS: Add Diff/Slide Review? Slide Review Added
[2017-01-27 08:33] LABS: BUN/Creatinine Ratio 20.1 (8-20); EGFR African American 44.6 (>60); EGFR Non-African American 34.7 (>60); Potassium 4.3 mmol/L (3.5-5.0)
[2017-01-27] MEDS: Sertraline* 100 MG TAB PO SCH (08:45)
[2017-01-27] MEDS: Furosemide TAB* 20 MG PO SCH (08:46)
[2017-01-27] MEDS: Carvedilol TAB* 25 MG PO SCH (08:46)
[2017-01-27] MEDS: Magnesium Oxide TAB* 400 MG PO SCH (08:46)
[2017-01-27] MEDS: ValACYclovir (*) 1 GM TAB PO SCH (08:46)
[2017-01-27] MEDS: Cyclobenzaprine TAB* 10 MG PO PRN (08:46)
[2017-01-27] MEDS: Diltiazem CD CAP* 120 MG PO SCH (08:46)
[2017-01-27] MEDS: PREDNISOLONE 0.12% BOTH EYES SCH ×3 (08:47→17:20)
[2017-01-27] MEDS: OPTH BOTH EYES SCH ×3 (08:47→17:20)
[2017-01-27 08:54] LABS: Hypochromasia 2+; Microcytosis 1+; Polychromasia 1+
--- NOTE | 2017-01-27 09:57 | RAD ---
INDICATION: Fall. Pelvic fracture. Assess for fracture related hematoma/bleeding. COMPARISON: January 25, 2017 CT. TECHNIQUE: Multidetector CT images were obtained from the lung bases to the ischial tuberosities. Evaluation of the viscera is limited without IV contrast. Multiplanar reformation. REPORT: Small to moderate RIGHT and minimal LEFT dependent pleural effusions with proportional compressive atelectasis. RIGHT atrial and RIGHT ventricular level pacemaker leads. Negative for cardiomegaly or pericardial effusion. No CT abnormality of the unenhanced liver or gallbladder. Unremarkable unenhanced pancreas and spleen. Negative for CT abnormality of the upper GI or small bowel. Normal diameter appendix is remarkable for an appendicolith in the mid segment without CT evidence for acute inflammation of the appendix. Unremarkable colon with moderate stool. Only trace free intraperitoneal fluid. Negative for free air. Fat-containing umbilical hernia without inflammatory change. Normal adrenal glands. 4.5 cm water density cortical cyst lower pole RIGHT kidney. Negative for hydronephrosis. Unremarkable nondilated ureters and partially distended urinary bladder. Symmetric seminal vesicles. Negative for lymphadenopathy. Normal diameter abdominal aorta and iliac arteries with mild atherosclerotic plaque. LEFT total hip prosthesis with associated beam hardening artifact. Extensive heterotopic bone formation about the LEFT hip and LEFT hemipelvis with healed LEFT pubic rami fractures. Unchanged mild displacement at the parasagittal RIGHT iliac bone fracture extending to the acetabular roof as well as the segmental impacted RIGHT inferior pubic ramus fracture. Negative for pelvic joint diastases. Negative for fracture of the RIGHT proximal femur. Interval enlargement of periosseous hematoma at the RIGHT iliac wing fracture with the iliacus muscle now measuring up to 6.7 cm in AP thickness compared with 3.7 cm previously. Overlying infiltrative hematoma in the retroperitoneum. Lumbar sacral spine degenerative spondylosis and facet joint osteoarthritis as well as several mild nonacute compression deformities. As previously noted there are innumerable areas of rarefaction of trabecular markings which may represent osteolytic lesions. IMPRESSION: 1. Small to moderate RIGHT and minimal LEFT dependent pleural effusions with proportional atelectasis. 2. RIGHT anterior and posterior pelvic fractures as described. Interval enlargement of periosseous hematoma at the RIGHT iliac wing fracture with the iliacus muscle now measuring up to 6.7 cm in AP thickness compared with 3.7 cm previously. Overlying infiltrative hematoma in the retroperitoneum. 3. Suggestion of polyostotic osteolytic lesions.
[2017-01-27] MEDS: Insulin LISPRO* 1 UNITS UNIT SUBCUT SCH ×6 (10:00→19:04)
[2017-01-27] MEDS: Omeprazole CAP* 20 MG PO SCH (10:00)
[2017-01-27] MEDS: oxyCODONE/Acetamin 5/325 MG* TAB PO PRN ×2 (10:34→17:43)
--- NOTE | 2017-01-27 12:35 | PN ---
Progress Note - Progress Note Date of Service: 01/27/17 SOAP: Subjective: Pt. has pain R buttock and hip. Unable to sit/stand. Objective: RLE - pain with hip motion. distally nvi. Vital Signs: Temp Pulse Resp BP Pulse Ox 97.6 F 88 22 91/51 99 01/27/17 07:32 01/27/17 11:11 01/27/17 11:11 01/27/17 11:11 01/27/17 11:11 Laboratory Results - last 24 hr 01/26/17 01/26/17 01/26/17 06:30 13:05 16:29 WBC RBC Hgb Hct MCV MCH MCHC RDW Plt Count MPV Neut % (Auto) Lymph % (Auto) Swain % (Auto) Eos % (Auto) Baso % (Auto) Absolute Neuts (auto) Absolute Lymphs (auto) Absolute Monos (auto) Absolute Eos (auto) Absolute Basos (auto) Absolute Nucleated RBC Nucleated RBC % Normal RBC Morphology Polychromasia Hypochromasia Microcytosis INR (Anticoag Therapy) Sodium Potassium Chloride Carbon Dioxide Anion Gap BUN Creatinine Est GFR ( Amer) Est GFR (Non-Af Amer) BUN/Creatinine Ratio Glucose POC Glucose (mg/dL) 268 H 256 H Calcium Blood Type O Positive Antibody Screen Negative Crossmatch See Detail Transfusion React Rpt Donor Unit # Post-Trans Blood Type Post-Trans NAVIN 01/26/17 01/26/17 01/27/17 16:47 20:53 07:38 WBC 12.6 H RBC 2.77 L Hgb 6.3 L* Hct 20 L MCV 73 L MCH 23 L MCHC 31 RDW 26 H Plt Count 246 MPV 8 Neut % (Auto) 74.9 Lymph % (Auto) 9.6 L Swain % (Auto) 15.2 H Eos % (Auto) 0 Baso % (Auto) 0.3 Absolute Neuts (auto) 9.4 H Absolute Lymphs (auto) 1.2 Absolute Monos (auto) 1.9 H Absolute Eos (auto) 0 Absolute Basos (auto) 0 Absolute Nucleated RBC 0.01 Nucleated RBC % 0 Normal RBC Morphology Not Reportable Polychromasia 1+ Hypochromasia 2+ Microcytosis 1+ INR (Anticoag Therapy) Sodium Potassium Chloride Carbon Dioxide Anion Gap BUN Creatinine Est GFR ( Amer) Est GFR (Non-Af Amer) BUN/Creatinine Ratio Glucose POC Glucose (mg/dL) 225 H Calcium Blood Type Antibody Screen Crossmatch Transfusion React Rpt Donor Unit # [id number] Post-Trans Blood Type O Positive Post-Trans NAVIN Negative 01/27/17 01/27/17 01/27/17 07:38 07:38 12:06 WBC RBC Hgb Hct MCV MCH MCHC RDW Plt Count MPV Neut % (Auto) Lymph % (Auto) Swain % (Auto) Eos % (Auto) Baso % (Auto) Absolute Neuts (auto) Absolute Lymphs (auto) Absolute Monos (auto) Absolute Eos (auto) Absolute Basos (auto) Absolute Nucleated RBC Nucleated RBC % Normal RBC Morphology Polychromasia Hypochromasia Microcytosis INR (Anticoag Therapy) 1.76 H Sodium 133 Potassium 4.3 Chloride 99 L Carbon Dioxide 28 Anion Gap 6 BUN 39 H Creatinine 1.94 H Est GFR ( Amer) 44.6 Est GFR (Non-Af Amer) 34.7 BUN/Creatinine Ratio 20.1 H Glucose 198 H POC Glucose (mg/dL) 211 H Calcium 8.0 L Blood Type Antibody Screen Crossmatch Transfusion React Rpt Donor Unit # Post-Trans Blood Type Post-Trans NAVIN Assessment: 66 yo M s/p fall with R iliac fx, sup/inf pubic rami fx's - increasing hematoma on CT and anemia Plan: Pt./partner and I discussed surgey once again. They initially wished to avoid surgery if possible but now understand we need a trauma ortho specialist to discuss pelvic stabilization. Pt. has increasing hematoma on CT and unable to mobilize. Fx is likely unstable and needs ORIF. D/w Dr Connors of hospitalist team - will tx to tertiary care center with trauma ortho Bedrest for now. prn analgesia
[2017-01-27 13:04] LABS: Immunoglobulin A 25 mg/dL (61 - 356); Immunoglobulin G 591 mg/dL (767 - 1590); Immunoglobulin M 153 mg/dL (37 - 286)
[2017-01-27 13:29] LABS: Kappa Free Light Chain 2.18 mg/dL; Kappa/Lambda Free Light Chain 0.9604
[2017-01-27 16:07] LABS: Albumin 2.8 g/dL (3.4-4.7); Gamma Globulin 0.7 g/dL (0.6-1.6); Total Protein(PEP) 5.5 g/dL (6.3 - 7.9)
--- NOTE | 2017-01-27 16:39 | TRS ---
CC: Dr. Watt; Dr. Whitmore; Dr. Rios; Dr. Chester Wilson, [facility] DATE OF ADMISSION: 01/25/2017. DATE OF DISCHARGE: 01/27/2017. DISCHARGE DIAGNOSES: 1. Pelvic fracture. 2. Periosseous hematoma and infiltrative hematoma of the retroperitoneum. 3. Acute blood loss anemia secondary to the above. 4. Delirium secondary to pain medication. 5. Acute on chronic renal failure. SECONDARY DIAGNOSES: 1. Multiple myeloma. 2. Atrial fibrillation, on anticoagulation with Warfarin. 3. Systolic congestive heart failure with an ejection fracture of 35 to 40 percent. 4. Coronary artery disease, status post drug-eluted stent to the LAD. 5. Type 2 diabetes. 6. GERD. 7. Hyperlipidemia. 8. Hypertension. 9. History of PE in June 2016. 10. History of chronic kidney disease stage 3. 11. Osteoarthritis. 12. Pathologic fracture of the left hip, status post ORIF. 13. Peptic ulcer disease. 14. Obstructive sleep apnea, not compliant with CPAP. 15. Obesity with a BMI of 34.4. MEDICATIONS AT THE TIME OF TRANSFER: 1. Acetaminophen 650 mg p.o. q.4 hours prn pain or fever. 2. Milk of Magnesia 30 ml p.o. q.6 hours prn constipation. 3. Atorvastatin 20 mg p.o. at bedtime. 4. Coreg 25 mg p.o. b.i.d. 5. Cyclobenzaprine 10 mg p.o. b.i.d. prn muscle spasms. 6. Digoxin 0.125 mg p.o. daily. 7. Diltiazem CD 120 mg p.o. daily. 8. Colace 100 mg p.o. b.i.d. as needed for constipation. 9. Furosemide 20 mg p.o. daily. 10. Gabapentin 300 mg p.o. at bedtime. 11. Lantus insulin 10 units subcutaneously daily. 12. Lispro sliding scale as follows: Fingerstick 131 to 150 two units, 151 to 200 three units, 201 to 250 six units, 251 to 300 nine units, 301 to 350 twelve units, 351 to 400 fifteen units, greater than 400 call MD. One unit of Lispro insulin to 12 gm of carbohydrates with meals. 13. Lorazepam 1 mg p.o. q.6 hours prn anxiety. 14. Magnesium oxide 800 mg p.o. daily. 15. Morphine 2 mg IV q.4 hours prn severe pain. 16. Omeprazole 20 mg p.o. daily. 17. Ondansetron 4 mg IV q.4 hours prn nausea. 18. Senna one tablet p.o. b.i.d. prn constipation. 19. Sertraline 100 mg p.o. daily. 20. Valacyclovir 1 gm p.o. daily. 21. Fentanyl patch 50 mcg topical q.72 hours. 22. Percocet one to two tablets p.o. q.6 hours prn pain. 23. Prednisolone 0.12% one drop to both eyes 4 times a day. HOSPITAL COURSE: Mr. Ferreira is a 66-year-old male with a past medical history as stated above who presented to the emergency room on January 25 after a fall. The patient states he was in his usual state of health, was walking with his walker, his right leg gave out and he fell landing on his right side. For ore details about his presentation, I refer you to his history and physical. In the emergency room, he initially had a hip and pelvis x-ray that showed fractures of the right superior and inferior pubic ramus, status post left hip replacement. Pelvis CT without contrast showed a fracture through the right ileum extending along the long axis of the iliac crest and parallel to the sacroiliac joint; fractures of the right superior and inferior pubic rami; there are small lucent areas scattered throughout the pelvis and the possibility of a pathologic fracture should be considered; degenerative changes of the lower lumbar spine; heterotopic ossification is noted along the iliopsoas muscles and left hip prosthesis; and an old left healed inferior pubic ramus fracture. A lower extremity CT without contrast showed no fracture of the right femur is noted; there are hyperdense lesions in the medullary cavity of the right femur that may represent neoplastic process; subtle lucent lesions are present throughout the right femur; underlying myeloma is not excluded. CT of the brain without contrast showed no intracranial mass or hemorrhage. The patient was admitted for pain control, initially to Dr. Whitmore's service. His impression was that his fracture was likely secondary to a fall rather than pathologic fracture and at that time he recommended medical management. Regarding the myeloma, the patient has been in remission and overall appearance of bony disease in CT is unchanged. Regarding his anemia, Dr. Whitmore felt that this was multifactorial, but the patient has a history of iron deficiency and was possibly experiencing additional acute bleed. IV iron was repleted and he recommended transfusion of PRBC's for further drop in counts. The patient was transferred to the Hospitalist Service for further management. He was seen in consultation by Orthopedics (Dr. Rios) and her impression was the patient presented status post fall at his home with right-sided pelvic fractures. He has a minimally displaced fracture of the right iliac bone as well as the right superior and inferior pubic rami fractures. The patient has a significant past medical history of multiple myeloma with multiple lesions in the bone. He has been treated with radiation therapy in the past. Further work-up of the lytic lesions will be discussed with Oncology and Medical team. The patient's pelvic fracture is right-sided and vertically oriented. She was unsure whether this would be stable and allow him to ambulate. She recommended making him toe touch weightbearing on the right lower extremity and try to ambulate with a rolling walker. She did give the patient both operative and nonoperative treatment options. The patient understood that if the fractures were unstable and displaced, he will need surgical intervention. At that point, the patient wished to avoid surgery if at all possible. Dr. Rios offered him transfer to a tertiary center to speak with a trauma surgeon, but the patient did not wish to proceed with surgery at that time. The plan was to follow his fractures closely. If he had increased pain with mobilization attempts, then she recommends repeat x-rays to ensure no displacement and if at that time the fractures prove to be unstable, she would once again urge the patient to have an evaluation by trauma photographic specialist. At that point, she recommended PT/OT with toe touch weightbearing of the right lower extremity, frequent skin checks and position changes to avoid any sacral ulcers. The patient was treated with pain management that included his Fentanyl patch, Morphine, and Percocet. He had some improvement of his pain, but became more confused and developed delirium. He was seen by Physical Therapy and he was unable to sit at the edge of the bed requiring a Kay lift for transfers. The patient was initially anemic with a hemoglobin of 7.1 from a baseline of 8.5. Later on, a repeat hemoglobin was [address] point [address] Whitmore recommended iron infusions. H and H was repeat and he had dropped to 6.6/22. The patient received two units of PRBC and a repeat H and H showed a hemoglobin of 6.3/20. The patient has a history of atrial fibrillation and pulmonary embolism and he was on Warfarin as an outpatient. On admission, his INR was 3.7 and initially the decision was made to stop his Warfarin as he could need a surgical procedure. With his anemia, his Warfarin was not resumed, but FFP's were avoided because the patient had stable vital signs and with his comorbidities, especially his systolic CHF, he is at a very high risk for fluid overload. His INR continued to drift down and on the day of transfer it is 1.76. Please keep in mind that the patient has a CHADS2 VASC score of 5 that puts him at a high risk for stroke and he has a history of multiple myeloma that increases his risk for pulmonary embolism and DVT. The patient already had a PE in June of this year. So for those reasons, we were reluctant to reverse his INR initially. Of course now that his hemoglobin has dropped further, his INR is already 1.7 at this point and he is being transfused as the concern for fluid overload is still present. At this point, it was felt that giving him PRBC's was more important that giving FFP's in terms of benefit and trying to limit the volume of blood products given in the setting of this patient with known heart disease and low ejection fraction. With the further drop in his H and H, the patient had a repeat CT of the abdomen and pelvis today that showed small to moderate and right minimal left dependent pleural effusions with proportional atelectasis; right anterior and posterior pelvic fractures with enlargement of periosseous hematoma at the right iliac wing fracture with the iliacus muscle now measuring up to 6.7 cm in AP thickness compared with 3.7 cm previously; overlying infiltrative hematoma in the retroperitoneum; suggestion of polyostotic osteolytic lesions. Those CT findings were discussed with Orthopedics (Dr. Rios) and her recommendation was for transfer to a tertiary care center for evaluation by a trauma surgeon. As the patient is delirious, he could not participate on the decision making at this time, so his significant other (Sergeymarilee DickensJaqueline) was contacted and updated about the patient's condition. He is in agreement with transfer. Initially we tried [facility], but unfortunately they had no available beds. We then contacted [facility] and the patient was accepted in transfer by Dr. Chester Wilson, trauma surgeon. The patient is medically stable for discharge at this time. PHYSICAL EXAMINATION: General: The patient is an elderly, obese male, lying in a recliner in no acute distress. Vital Signs: Temperature 98.6, heart rate 79, respiratory rate 16, oxygen saturation 100 percent on 2 liters nasal canula , blood pressure 106/47. HEENT: Pupils are equal, pale, moist mucus membranes. CVS: Normal S1, S2, regular rate and rhythm. Chest: Breath sounds present bilaterally, decreased in bases, but no added sounds. Abdomen: Obese, soft, nontender, nondistended. Bowel sounds are present. Extremities: There are bilateral lower extremity mild pitting edema, but with good pulses, good capillary refill. Sensation is intact. Neuro: He is alert and awake. Oriented to self only. He is able to move all four extremities. DIET: Heart-healthy consistent carb diet. ACTIVITY: The patient is on bedrest at this time. DISPOSITION: To [facility]. STATUS WHILE IN THE HOSPITAL: Inpatient. Please keep in mind this is a summarized version of this patient's hospital stay. If you need more information, please feel free to call me at or please obtain the full medical record. Approximately 60 minutes were spent to complete this discharge. [id number]/CPS #: [id number] MATT
[2017-01-27] MEDS ORDERED: Furosemide IV* 10 MG/ML 2 ML VIAL (20 MG) IV SLOW PU ONE (17:34)
[2017-01-27] MEDS ORDERED: Furosemide IV* 10 MG/ML 2 ML VIAL (20 MG) ONE (17:37)
[2017-01-27] MEDS: Insulin GLARGINE(*) 1 UNITS UNIT SUBCUT SCH (17:43)
[2017-01-27] MEDS: Digoxin TAB* 0.125 MG PO SCH (17:48)
[2017-01-27 20:45] VITALS: BP 107/52
== END 2017-01-27 17:50 | disposition short-term general hospital (02) | DRG 964 ==
LOC: ED 22:52 → SSU 01-25 03:19
PROVIDERS: ADMIT Pediatrics; ATTEND Internal Medicine
PROC: 30233N1 Transfusion of Nonautologous Red Blood Cells into Peripheral Vein, Percutaneous Approach (ICD-10-PCS; principal; 2017-01-27)
DX: S32.301A Unspecified fracture of right ilium, initial encounter for closed fracture (principal); N17.9 Acute kidney failure, unspecified; S36.892A Contusion of other intra-abdominal organs, initial encounter; S32.591A Other specified fracture of right pubis, initial encounter for closed fracture; E11.22 Type 2 diabetes mellitus with diabetic chronic kidney disease; D62 Acute posthemorrhagic anemia; I13.0 Hypertensive heart and chronic kidney disease with heart failure and stage 1 through stage 4 chronic kidney disease, or unspecified chronic kidney disease; I50.22 Chronic systolic (congestive) heart failure; C90.01 Multiple myeloma in remission; I48.0 Paroxysmal atrial fibrillation; E66.01 Morbid (severe) obesity due to excess calories; F32.9 Major depressive disorder, single episode, unspecified; J44.9 Chronic obstructive pulmonary disease, unspecified; I25.10 Atherosclerotic heart disease of native coronary artery without angina pectoris; Z95.5 Presence of coronary angioplasty implant and graft; K21.9 Gastro-esophageal reflux disease without esophagitis; E78.5 Hyperlipidemia, unspecified; M19.90 Unspecified osteoarthritis, unspecified site; Z86.711 Personal history of pulmonary embolism; G47.33 Obstructive sleep apnea (adult) (pediatric); Z87.11 Personal history of peptic ulcer disease; Z88.6 Allergy status to analgesic agent; Z88.8 Allergy status to other drugs, medicaments and biological substances; Z82.3 Family history of stroke; Z87.891 Personal history of nicotine dependence; W19.XXXA Unspecified fall, initial encounter; Y92.009 Unspecified place in unspecified non-institutional (private) residence as the place of occurrence of the external cause; G89.29 Other chronic pain; F41.9 Anxiety disorder, unspecified; Z92.21 Personal history of antineoplastic chemotherapy; Z95.0 Presence of cardiac pacemaker; Z96.649 Presence of unspecified artificial hip joint; Z82.49 Family history of ischemic heart disease and other diseases of the circulatory system; S30.0XXA Contusion of lower back and pelvis, initial encounter; R41.0 Disorientation, unspecified; D50.9 Iron deficiency anemia, unspecified; Z68.34 Body mass index [BMI] 34.0-34.9, adult; T39.95XA Adverse effect of unspecified nonopioid analgesic, antipyretic and antirheumatic, initial encounter; N18.3 Chronic kidney disease, stage 3 (moderate); Z79.4 Long term (current) use of insulin; Z79.52 Long term (current) use of systemic steroids; Z79.891 Long term (current) use of opiate analgesic; Z92.3 Personal history of irradiation; E11.36 Type 2 diabetes mellitus with diabetic cataract
CPT/HCPCS: 0521F; 1036F; 1125F; 36415; 70450; 72192; 74176; 80048; 80053; 80162; 82270; 82784; 83735; 83883; 84155; 84165; 85014; 85018; 85025; 85610; 86078; 86850; 86900; 86901; 86922; 90471; 90686; 99213; A9270-GY; G0008; G8427; J1940; J2270; J2916; P9040

== ENCOUNTER 2017-04-08 23:16 | Emergency (ER) | payer MEDICARE, OTHER ==
[2017-04-08] MEDS ORDERED: Pantoprazole IV* 80 MG in NS 0.9% 250 ML* 250 ML IV SCH (23:45)
[2017-04-08] MEDS ORDERED: NS 0.9% 1000 ML* 1,000 ML IV ONE (23:56)
[2017-04-08] MEDS ORDERED: Pantoprazole IV* 40 MG IV ONE (23:56)
[2017-04-09] MEDS ORDERED: Diltiazem IV* 5 MG/ML 5 ML VIAL (for loading dose/IV Push) (25 MG) IV SLOW PU ONE (00:27)
[2017-04-09 00:29] LABS: Mean Platelet Volume 9 um3 (7.4-10.4)
[2017-04-09 00:35] LABS: Hematocrit 14 % (42-52); Mean Corpuscular HGB Conc 30 g/dl (31-36); Mean Corpuscular Hemoglobin 24 pg (27-31); Mean Corpuscular Volume 80 fL (80-94); Red Blood Count 1.72 10^6/ul (4.0-5.4); Red Cell Distribution Width 22 % (10.5-15); White Blood Count 7.1 10^3/ul (3.5-10.8)
[2017-04-09 00:40] LABS: Comments Flag Yes
[2017-04-09 00:41] LABS: Add Diff/Slide Review? Slide Review Added
[2017-04-09 00:43] LABS: Hemoglobin 4.2 g/dl (14.0-18.0)
[2017-04-09 00:44] LABS: Albumin 2.8 g/dL (3.2-5.2); BUN/Creatinine Ratio 44.6 (8-20); C Reactive Protein 91.1 mg/L (< 5.00); Calcium 8.2 mg/dL (8.6-10.3); EGFR African American 84.1 (>60); EGFR Non-African American 65.4 (>60); Globulin 2.3 g/dL (2-4); Magnesium 1.9 mg/dL (1.9-2.7); Potassium 4.5 mmol/L (3.5-5.0); Total Bilirubin 0.7 mg/dL (0.2-1.0); Total Protein 5.1 g/dL (6.4-8.9)
[2017-04-09] MEDS ORDERED: Pantoprazole DRIP 80 MG in 100 mL @ 8 MG/HR IVPB SCH (01:00)
[2017-04-09] MEDS ORDERED: Phytonadione INJ* 1 MG/0.5 ML ML IM ONE (01:10)
[2017-04-09] MEDS ORDERED: Phytonadione INJ (Adult)* 10 MG/ML 1 ML AMP IV ONE (01:11)
[2017-04-09] MEDS ORDERED: Pantoprazole IV* 40 MG ONE (01:35)
[2017-04-09 01:53] LABS: Troponin I 0.52 ng/mL (<0.04)
--- NOTE | 2017-04-09 02:31 | ED ---
Billie Contreras Gabriel, scribed for Aubrey Kirk on 04/08/17 at 2357 . Altered Mental Status - HPI Summary HPI Summary: This patient is a 66 year old M BIBA to [facility] accompanied by his partner with a chief complaint of AMS since 830. Patient is very confused but his partner states he has been having dark stool and confusion. The patient does not understand why he is at the hospital but denies any pain, hematemesis, cp, and sob. - History Of Current Complaint Chief Complaint: EDAltMentalStatus Stated Complaint: CONFUSED Time Seen by Provider: 04/08/17 23:32 Hx Obtained From: Patient Onset/Duration: Still Present Timing: Constant Character: Confusion Associated Signs And Symptoms: Positive: Negative - pain, hematemesis, cp, and sob. - Allergies/Home Medications Allergies/Adverse Reactions: Allergies Allergy/AdvReac Type Severity Reaction Status Date / Time Ibuprofen Allergy GI Upset Verified 03/07/17 09:19 Pregabalin Allergy Swelling Verified 01/24/17 23:13 PACEMAKER Allergy See Comment Uncoded 03/20/17 10:13 PMH/Surg Hx/FS Hx/Imm Hx Previously Healthy: No Endocrine/Hematology History: Reports: Hx Anticoagulant Therapy, Hx Diabetes, Hx Anemia - HX OF WITH TRANSFUSIONS IN 06/2013, Other Endocrine/Hematological Disorders - multiple myeloma Denies: Hx Thyroid Disease Cardiovascular History: Reports: Hx Congestive Heart Failure, Hx Coronary Artery Disease, Hx Hypertension, Hx Pacemaker/ICD, Hx Syncope, Other Cardiovascular Problems/Disorders - Cardiac cath, dyslipidemia, Denies: Hx Peripheral Vascular Disease Respiratory History: Reports: Hx Chronic Obstructive Pulmonary Disease (COPD) - 2-3 liters O2 at home, Hx Pulmonary Embolism, Hx Sleep Apnea - NO CPAP, Other Respiratory Problems/Disorders - HX OF MULTIPLE MYELOMA GI History: Reports: Hx Ulcer - PUD History: Denies: Hx Dialysis, Hx Renal Disease Musculoskeletal History: Reports: Hx Arthritis, Hx Back Problems, Hx Orthopedic Injury - pelvic fracture 01/2014 Sensory History: Reports: Hx Cataracts - RIGHT EYE, Hx Contacts or Glasses - HOME Denies: Hx Deafness, Hx Hearing Aid Opthamlomology History: Reports: Hx Cataracts - RIGHT EYE, Hx Contacts or Glasses - HOME Neurological History: Reports: Other Neuro Impairments/Disorders - HX OF SYNCOPE Denies: Hx Seizures, Hx Transient Ischemic Attacks (TIA) Psychiatric History: Reports: Hx Anxiety, Hx Depression - anxiety - Cancer History Cancer Type, Location and Year: multiple myeloma Hx Chemotherapy: Yes - last chemo last Friday Hx Radiation Therapy: No Hx Palliative Cancer Treatment: No - Surgical History Surgery Procedure, Year, and Place: cardiac cath/CARDIAC STENT, PACEMAKER, HIP REPLACEMENT Hx Anesthesia Reactions: No - Immunization History Date of Tetanus Vaccine: PT STATES UNSURE Date of Influenza Vaccine: PT STATES UNSURE Infectious Disease History: No Infectious Disease History: Reports: Hx of Known/Suspected MRSA - NOSE Denies: Hx Clostridium Difficile, Hx Hepatitis, Hx Human Immunodeficiency Virus (HIV), Hx Shingles, Hx Tuberculosis, History Other Infectious Disease, Traveled Outside the [place] in Last 30 Days - Family History Known Family History: Positive: Other - mother had circulation problems, father had anginia. - Social History Alcohol Use: Rare Hx Substance Use: No Substance Use Type: Reports: None Hx Tobacco Use: Yes Smoking Status (MU): Former Smoker Type: Cigarettes Amount Used/How Often: 1/2 PPD Length of Time of Smoking/Using Tobacco: 20 years Have You Smoked in the Last Year: No Review of Systems Negative: Chest Pain Negative: Shortness Of Breath Gastrointestinal: Negative - hematemesis Positive: Other - melena Neurological: Other - confusion All Other Systems Reviewed And Are Negative: Yes Physical Exam - Summary Physical Exam Summary: Appearance: Well appearing, no pain distress Skin: warm, dry, reflects adequate perfusion Head/face: normal Eyes: EOMI, JENNIFER, Pale conjunctiva ENT: normal Neck: supple, non-tender Respiratory: CTA, breath sounds present Cardiovascular: tachy, irregular Abdomen: non-tender, soft Bowel: present Rectal exam: black stool Musculoskeletal: strength/ROM intact, bilateral pedal edema Neuro: normal, sensory motor intact, A&Ox3 Triage Information Reviewed: Yes Vital Signs On Initial Exam: Initial Vitals Temp Pulse Resp BP Pulse Ox 100 F 106 19 130/58 100 04/08/17 23:28 04/08/17 23:28 04/08/17 23:28 04/08/17 23:28 04/08/17 23:28 Vital Signs Reviewed: Yes - [place] Coma Scale Coma Scale Total: 15 Diagnostics - Vital Signs Vital Signs Temp Pulse Resp BP Pulse Ox 04/08/17 23:28 100 F 106 19 130/58 100 - Laboratory Lab Results: Lab Results 04/09/17 04/09/17 04/09/17 Range/Units 00:05 00:05 00:05 WBC 7.1 (3.5-10.8) 10^3/ul RBC 1.72 L (4.0-5.4) 10^6/ul Hgb 4.2 L* (14.0-18.0) g/dl Hct 14 L (42-52) % MCV 80 (80-94) fL MCH 24 L (27-31) pg MCHC 30 L (31-36) g/dl RDW 22 H (10.5-15) % Plt Count 252 (150-450) 10^3/ul MPV 9 (7.4-10.4) um3 Neut % (Auto) 74.4 (38-83) % Lymph % (Auto) 14.4 L (25-47) % [place] % (Auto) 10.5 H (1-9) % Eos % (Auto) 0.1 (0-6) % Baso % (Auto) 0.6 (0-2) % Absolute Neuts (auto) 5.3 (1.5-7.7) 10^3/ul Absolute Lymphs (auto) 1.0 (1.0-4.8) 10^3/ul Absolute Monos (auto) 0.7 (0-0.8) 10^3/ul Absolute Eos (auto) 0 (0-0.6) 10^3/ul Absolute Basos (auto) 0 (0-0.2) 10^3/ul Absolute Nucleated RBC 0.05 10^3/ul Nucleated RBC % 0.8 INR (Anticoag Therapy) (0.89-1.11) APTT (26.0-36.3) seconds Sodium 138 (133-145) mmol/L Potassium 4.5 (3.5-5.0) mmol/L Chloride 103 (101-111) mmol/L Carbon Dioxide 25 (22-32) mmol/L Anion Gap 10 (2-11) mmol/L BUN 50 H (6-24) mg/dL Creatinine 1.12 (0.67-1.17) mg/dL Est GFR ( Amer) 84.1 (>60) Est GFR (Non-Af Amer) 65.4 (>60) BUN/Creatinine Ratio 44.6 H (8-20) Glucose 183 H (70-100) mg/dL Lactic Acid 3.6 H* (0.5-2.0) mmol/L Calcium 8.2 L (8.6-10.3) mg/dL Magnesium 1.9 (1.9-2.7) mg/dL Total Bilirubin 0.70 (0.2-1.0) mg/dL AST 16 (13-39) U/L ALT 10 (7-52) U/L Alkaline Phosphatase 121 H (34-104) U/L Total Creatine Kinase 74 (10-223) U/L Troponin I 0.52 H* (<0.04) ng/mL C-Reactive Protein 91.10 H (< 5.00) mg/L B-Natriuretic Peptide ( - 100) pg/mL Total Protein 5.1 L (6.4-8.9) g/dL Albumin 2.8 L (3.2-5.2) g/dL Globulin 2.3 (2-4) g/dL Albumin/Globulin Ratio 1.2 (1-3) Lipase 24 (11.0-82.0) U/L Blood Type Antibody Screen Crossmatch 04/09/17 04/09/17 04/09/17 Range/Units 00:05 00:05 00:05 WBC (3.5-10.8) 10^3/ul RBC (4.0-5.4) 10^6/ul Hgb (14.0-18.0) g/dl Hct (42-52) % MCV (80-94) fL MCH (27-31) pg MCHC (31-36) g/dl RDW (10.5-15) % Plt Count (150-450) 10^3/ul MPV (7.4-10.4) um3 Neut % (Auto) (38-83) % Lymph % (Auto) (25-47) % [place] % (Auto) (1-9) % Eos % (Auto) (0-6) % Baso % (Auto) (0-2) % Absolute Neuts (auto) (1.5-7.7) 10^3/ul Absolute Lymphs (auto) (1.0-4.8) 10^3/ul Absolute Monos (auto) (0-0.8) 10^3/ul Absolute Eos (auto) (0-0.6) 10^3/ul Absolute Basos (auto) (0-0.2) 10^3/ul Absolute Nucleated RBC 10^3/ul Nucleated RBC % INR (Anticoag Therapy) 16.59 H* (0.89-1.11) APTT 86.3 H (26.0-36.3) seconds Sodium (133-145) mmol/L Potassium (3.5-5.0) mmol/L Chloride (101-111) mmol/L Carbon Dioxide (22-32) mmol/L Anion Gap (2-11) mmol/L BUN (6-24) mg/dL Creatinine (0.67-1.17) mg/dL Est GFR ( Amer) (>60) Est GFR (Non-Af Amer) (>60) BUN/Creatinine Ratio (8-20) Glucose (70-100) mg/dL Lactic Acid (0.5-2.0) mmol/L Calcium (8.6-10.3) mg/dL Magnesium (1.9-2.7) mg/dL Total Bilirubin (0.2-1.0) mg/dL AST (13-39) U/L ALT (7-52) U/L Alkaline Phosphatase (34-104) U/L Total Creatine Kinase (10-223) U/L Troponin I (<0.04) ng/mL C-Reactive Protein (< 5.00) mg/L B-Natriuretic Peptide 516 H ( - 100) pg/mL Total Protein (6.4-8.9) g/dL Albumin (3.2-5.2) g/dL Globulin (2-4) g/dL Albumin/Globulin Ratio (1-3) Lipase (11.0-82.0) U/L Blood Type O Positive Antibody Screen Negative Crossmatch See Detail Result Diagrams: 04/09/17 00:05 04/09/17 00:05 Lab Statement: Any lab studies that have been ordered have been reviewed, and results considered in the medical decision making process. - EKG 00:15 Cardiac Rate: Tachycardia EKG Rhythm: Sinus Tachycardia - at 150 BPM EKG Interpretation: atrial fibrillation and RVR Altered Mental Statu Course/Dx - Diagnoses Differential Diagnosis/HQI/PQRI: CVA, Intracranial Bleed, Sepsis, Other - anemia /gi bleeding/coagulopathy/a fib with rvr Discharge Diagnoses: GI bleed, Altered mental status, Anemia, Multiple myeloma, Atrial fibrillation with RVR - Provider Notifications Discussed Care Of Patient With: Dr. Nicole Time Discussed With Above Provider: 00:46 Instructed by Provider To: Other - We discussed patient care with Dr. Nicole, hospitalist at [facility]. They agreed to accept the transfer and admit the patient. Reason For Transfer: Specialty or service not available at [facility]. - Patient has a GI bleed - Critical Care Time Critical Care Time: 75-104 min Discharge - Discharge Plan Condition: Stable Disposition: TRANS HIGHER LVL OF CARE FAC Referrals: Marcin Watt MD [Primary Care Provider] - The documentation as recorded by the Billie wilcox Gabriel accurately reflects the service I personally performed and the decisions made by Reagan bonilla Emmanuel.
[2017-04-09] MEDS ORDERED: Furosemide IV* 10 MG/ML 10 ML VIAL (100 MG) IV ONE ×3 (03:05→03:26)
[2017-04-09] MEDS ORDERED: Furosemide IV* 10 MG/ML 10 ML VIAL (100 MG) ONE (03:06)
[2017-04-09] MEDS ORDERED: Nitroglycerin 2% OINT* 1 GM PAK ONE (03:18)
[2017-04-09] MEDS ORDERED: Morphine INJ* 4 MG/ML 1 ML CARPUJECT ONE (03:20)
[2017-04-09 03:24] LABS: Hypochromasia 2+; Polychromasia 1+; Spherocytes 1+
[2017-04-09] MEDS ORDERED: Ondansetron INJ* 2 MG/ML VIAL ONE (03:25)
[2017-04-09] MEDS ORDERED: Furosemide IV* 10 MG/ML VIAL (40 MG) IV ONE (03:25)
[2017-04-09] MEDS ORDERED: Morphine INJ* 4 MG/ML 1 ML CARPUJECT IV ONE (03:26)
[2017-04-09] MEDS ORDERED: Ondansetron INJ* 2 MG/ML VIAL IV ONE (03:27)
[2017-04-09] MEDS ORDERED: Nitroglycerin 2% OINT* 1 GM PAK TOPICAL ONE (03:29)
[2017-04-09 03:36] LABS: EPAP 6; FIO2 100; IPAP 12; Resp Rate 12
[2017-04-09 03:39] LABS: PCO2 Arterial 51 mmHg (35-45)
[2017-04-09] MEDS ORDERED: Diltiazem DRIP* 100 MG/100 ML ADDV.BAG IVPB ONE (03:41)
[2017-04-09] MEDS ORDERED: Furosemide IV* 10 MG/ML 2 ML VIAL (20 MG) IV ONE (03:46)
[2017-04-09] MEDS ORDERED: Morphine INJ* 2 MG/ML 1 ML CARPUJECT IV ONE (03:47)
[2017-04-09 05:07] VITALS: BP 152/91
--- NOTE | 2017-04-09 06:36 | ED ---
Billie Contreras Gabriel, scribed for Aubrey Kirk on 04/09/17 at 0636 . Progress - Results/Orders Results/Orders: MDM This patient is a 66 year old M BIBA [facility] with a GI Bleed. Blood work was taken with an Hgb of 4.4, INR of 16.59, lactic acid of 3.6, and a Trop of .52. An EKG reveals atrial fibrillation and RVR. CT Brain reveals, per radiologist, No evidence for acute disease. CXR reveals, no acute disease.We discussed patient care with Dr. Nicole, hospitalist at [facility]. They agreed to accept the transfer and admit the patient. Patient will be transferred to ICU with follow up and care from Dr. Michael. - EKG/XRAY/CT XRAY: Chest Xray Comments: Read by physician, no acute disease. CT: CT Brain reveals, per radiologist, No evidence for acute disease. Course/Dx - Diagnoses Provider Diagnoses: GI bleed, Altered mental status, Anemia, Multiple myeloma, Atrial fibrillation with RVR - Provider Notifications Time Discussed With Above Provider: 00:46 Instructed by Provider To: Other - We discussed patient care with Dr. Nicole, hospitalist at [facility]. They agreed to accept the transfer and admit the patient. Reason For Transfer: Specialty or service not available at [facility]. - Patient has a GI bleed - Critical Care Time Critical Care Time: 75-104 min The documentation as recorded by the Billie wilcox Gabriel accurately reflects the service I personally performed and the decisions made by Reagan bonilla Emmanuel.
--- NOTE | 2017-04-09 07:57 | RAD ---
INDICATION: Confusion COMPARISON: Most recent comparison chest x-ray March 11, 2017 TECHNIQUE: Single AP portable view of the chest was obtained. FINDINGS: Image quality is compromised due to the relative inferiority of a portable chest x-ray. Again seen is a left upper chest cardiac pacemaker with 2 leads overlying the heart. The heart and mediastinum exhibit normal size and contour. The lungs are grossly clear. There is no evidence of a large pleural effusion. Healed rib fractures are again noted at the lateral left ribs. IMPRESSION: No radiographic evidence for acute cardiopulmonary abnormality on this portable chest x-ray.
--- NOTE | 2017-04-09 08:01 | RAD ---
Indication: Confusion. CT of the brain was performed without IV contrast. The study is limited due to motion artifact. Ventricular structures are midline. No midline shift is noted. Central and cortical atrophy is noted. There is no evidence of hemorrhage. No mass or hemorrhage. No other high or low density lesions are identified. Calcified scalp nodule is noted in the right parietal area. This is unchanged from previous exam. IMPRESSION: No intracranial mass or hemorrhage although evaluation is limited due to motion artifact.
--- NOTE | 2017-04-09 08:04 | RAD ---
INDICATION: Shortness of breath. COMPARISON: Comparison is made with a prior chest x-ray study from April 09, 2017 from approximately 3 hours earlier. TECHNIQUE: A portable view of the chest was obtained. FINDINGS: There is a dual-chamber transvenous pacemaker. The heart is within normal limits in size. There is prominence of the interstitial markings which have increased from the prior exam. No pleural effusion is seen. IMPRESSION: FINDINGS MOST CONSISTENT WITH CONGESTIVE HEART FAILURE.
--- NOTE | 2017-04-10 08:30 | ED ---
Progress - Progress Note Progress Note: UPDATE: stool occult blood test is positive. Pt was dx'd as GI bleed and transferred to [facility]. melissa Dozier, jonathon - fax to RB. RONEY PA-C 8:24am - Results/Orders Results/Orders: MDM This patient is a 66 year old M [facility] with a GI Bleed. Blood work was taken with an Hgb of 4.4, INR of 16.59, lactic acid of 3.6, and a Trop of .52. An EKG reveals atrial fibrillation and RVR. CT Brain reveals, per radiologist, No evidence for acute disease. CXR reveals, no acute disease.We discussed patient care with Dr. Nicole, hospitalist at [facility]. They agreed to accept the transfer and admit the patient. Patient will be transferred to ICU with follow up and care from Dr. Michael. - EKG/XRAY/CT XRAY: Chest Xray Comments: Read by physician, no acute disease. CT: CT Brain reveals, per radiologist, No evidence for acute disease. Course/Dx - Diagnoses Provider Diagnoses: GI bleed, Altered mental status, Anemia, Multiple myeloma, Atrial fibrillation with RVR - Provider Notifications Time Discussed With Above Provider: 00:46 Instructed by Provider To: Other - We discussed patient care with Dr. Nicole, hospitalist at [facility]. They agreed to accept the transfer and admit the patient. Reason For Transfer: Specialty or service not available at [facility]. - Patient has a GI bleed - Critical Care Time Critical Care Time: 75-104 min
== END 2017-04-09 04:49 | disposition short-term general hospital (02) ==
LOC: ED 23:16
DX: D64.9 Anemia, unspecified (principal); C90.00 Multiple myeloma not having achieved remission; R41.82 Altered mental status, unspecified; K92.2 Gastrointestinal hemorrhage, unspecified; I48.91 Unspecified atrial fibrillation
CPT/HCPCS: 36415; 36430; 36600; 70450; 71010; 80053; 82272; 82550; 82803; 83605; 83690; 83735; 83880; 84484; 85025; 85610; 85730; 86140; 86850; 86900; 86901; 86922; 86927; 93005; 94660; 96374; 96375; 99285; A9270-GY; J1940; J2270; J2405; J3430; P9017; P9040

== ENCOUNTER 2017-10-23 06:06 | Day surgery (SDC) | payer MEDICARE, OTHER ==
--- NOTE | 2017-09-26 03:33 | HP ---
CC: Dr. Marcin Watt; Dr. Adams Whitmore; Dr. Joce Cain * ADMISSION HISTORY AND PHYSICAL: DATE OF ADMISSION: At this point, scheduled for 10/23/17. ATTENDING SURGEON: Dr. Maulik Rojas.* (DICTATED BY MARQUITA PATTERSON) CHIEF COMPLAINT: Umbilical hernia; left posterior neck cyst. HISTORY OF PRESENT ILLNESS: This is a 67-year-old male with multiple medical problems (see below), who presents with an umbilical hernia that has been present for many years, but recently gotten larger and more symptomatic. Likewise, he has a left posterior neck cyst, which has been present for many years, but has recently been tender and bothersome on occasion. He was seen recently by Dr. Whitmore and referred for evaluation. He was seen by Dr. Rojas in the office on 09/23/17 at which time a left posterior neck cyst was noted, which was consistent with a sebaceous cyst without overlying skin change. It was freely mobile. In addition, there was noted to be an umbilical hernia just superior to the umbilicus measuring approximately 4 cm, which was reducible with some difficulty with defect of only approximately [address] Rojas discussed with him the indications for surgery, the risks, benefits, and alternatives. He has not required Lovenox bridging in the past and therefore he will hold his Coumadin after his 10/17/17 dose and we will proceed without Lovenox bridging. He does have an appointment with Dr. Cain for cardiology evaluation on 10/16/17 and we will await his input. PAST MEDICAL HISTORY: 1. Multiple myeloma with active disease, on chemotherapy (daratumumab infusion every 2 weeks) (followed by Dr. Whitmore), (he recently completed radiation therapy to the left shoulder for bony lesion). 2. He has a history of paroxysmal atrial fibrillation. 3. Type 2 diabetes. 4. Pulmonary embolus in June 2016 (on chronic warfarin therapy, see below). 5. History of CHF. 6. Hyperlipidemia. 7. Hypertension. 8. Obesity. 9. Osteoarthritis. 10. Obstructive sleep apnea (untreated). PAST SURGICAL HISTORY: Include left hip total arthroplasty in 2014, pacemaker placement in 2014, coronary artery stent (ALEXEY to the LAD) in 2013. He is also status post bilateral cataract extraction and dental extractions. No reported surgical or anesthesia complications. CURRENT MEDICATIONS: 1. He does use 2 L of nasal oxygen p.r.n. if he becomes short of breath, but this is relatively infrequent. 2. Daratumumab IV infusion every 2 weeks. 3. Advair Diskus 250/50 mcg per dose once or twice daily p.r.n. (uses infrequently). 4. Albuterol MDI 2 puffs q.6 hours p.r.n. (uses infrequently). 5. Vitamin E 400 units once daily. 6. Atorvastatin 20 mg q.h.s. 7. Benadryl p.r.n. and before chemotherapy. 8. Calcium 500 mg once daily. 9. Vitamin D3 1000 International Units once daily. 10. Coreg 25 mg b.i.d. 11. Warfarin 2 mg 1 tablet every Friday, Friday, Friday, 3 mg once daily on all other days (the patient is directed to stop after his 10/17/17 dose and to restart postoperatively at Dr. Rojas's direction). 12. Vitamin B12 1000 mcg once daily. 13. Dexamethasone 4 mg as directed (3 tablets prior to chemotherapy). 14. Digoxin 125 mcg 1 tablet b.i.d. 15. Furosemide 20 mg once daily p.r.n. peripheral edema. 16. Gabapentin 300 mg q.h.s. 17. Lantus 20 mg subcutaneously q.p.m. 18. Magnesium 250 mg 2 tablets b.i.d. 19. Metformin 1000 mg b.i.d. 20. Metoprolol succinate extended release 100 mg once daily. 21. Ramipril 2.5 mg once daily. 22. Sertraline 100 mg once daily p.r.n. (uses infrequently). DRUG ALLERGIES: LYRICA (swelling). FAMILY HISTORY: Positive for what sounds like arterial occlusive disease, but negative for any other known venous thromboembolic disease. No family history of anesthesia problems or bleeding disorder. SOCIAL HISTORY: The patient lives with his significant other. He ambulates with a walker. 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 He is a former smoker who quit 5 years ago and has a 30-pack year history. He denies use of alcohol or recreational drugs. REVIEW OF SYSTEMS: General: No recent constitutional symptoms or acute illnesses other than described above. He has had some intentional weight loss in recent months. Eyes: No recent changes or problems reported. Ears, nose, throat: No problems reported. He does have a full upper denture and has a partial lower denture, though is not currently using it. Cardiovascular: No recent chest pain or palpitations. He does have an appointment with Dr. Cain for evaluation on 10/16/17 and a pacemaker interrogation around that time as well. No specific history of DC or angina. Respiratory: No recent exacerbations of his asthma. Smoking history as noted. No recent shortness of breath or cough. GI: No GERD symptoms, nausea, vomiting. No lower GI symptoms. Colonoscopy most recently done in 2012 with removal of benign polyps. EGD done in 2017. : No problems reported. Endocrine: Type 2 diabetes. No thyroid dysfunction. Hematological/oncological: He was treated for multiple myeloma and does have active, but stable bone lesions. He has some bone pain, most recently in the right shoulder. He does not actively require analgesics other than Tylenol, which he uses p.r.n. All other systems are negative. PHYSICAL EXAMINATION GENERAL: Well-nourished, obese male, in no acute distress. VITAL SIGNS: Height 74 inches, weight 242 pounds. Temperature 98.3, blood pressure 136/80, pulse 68, respirations 18. HEENT: Pupils are equal and round, reactive. EOMs intact. No conjunctival pallor. Oropharynx: Full upper denture, remaining lower teeth in fair to good repair. No intraoral lesions. NECK: No lymphadenopathy in the cervical or supraclavicular regions. No thyromegaly. There is a left posterior cervical mass measuring approximately 3 x 1.5 cm. It is nontender and mobile and consistent with a subcutaneous or sebaceous cyst. LUNGS: Clear to auscultation. No rales or wheezes. HEART: Regular rate and rhythm. No murmur appreciated. There is a palpable pacemaker in the left upper chest. ABDOMEN: Obese. There is a visible and palpable bulge at the superior aspect of the umbilicus. I did not attempt to reduce it today. It was nontender on today's exam. The remainder of the abdomen reveals no additional masses or organomegaly. No tenderness. No palpable inguinal hernias. EXTREMITIES: Trace edema bilaterally. SKIN: Warm and dry. No suspicious rashes or lesions. IMPRESSION: 1. Umbilical hernia. 2. Posterior left neck cyst. PLAN: 1. Open repair of umbilical hernia with possible mesh. 2. Excision of left posterior neck cyst. MARQUITA PATTERSON [id number]/[facility] #: [id number] [facility]'S HOSPITALJustin
[~2017-10-23 06:06] MED LIST: Buffered Lidocaine 0.9% SYRIN* 5 ML/SYR SYRINGE INTRADERM ONE
[2017-10-23] MEDS ORDERED: ceFAZolin 2 GM PREMIX (*) 2 GM/50 ML BAG IVPB ONE (06:13)
[2017-10-23] MEDS ORDERED: Buffered Lidocaine 0.9% SYRIN* 5 ML/SYR SYRINGE ONE (06:13)
[2017-10-23] MEDS ORDERED: Insulin LISPRO* 1 UNITS UNIT SUBCUT ONE ×2 (07:00→07:03)
[2017-10-23] MEDS ORDERED: Lidocaine 1% MPF wEPI 200,000* 30 ML SDV ONE (07:28)
[2017-10-23] MEDS ORDERED: Bupivacaine 0.5% SDV PF* 30ML VIAL ONE (07:29)
[2017-10-23] MEDS ORDERED: Midazolam* 1 MG/ML 2 ML VIAL (2 MG) ONE (07:34)
[2017-10-23] MEDS ORDERED: fentaNYL* 50 MCG/ML 2 ML VIAL (100 MCG VIAL) ONE (07:34)
[2017-10-23] MEDS ORDERED: Famotidine IV* 10 MG/ML 2 ML (20 mg) ONE (07:43)
[2017-10-23] MEDS ORDERED: Dexamethasone IV* 4 MG/ML 1 ML (4 MG) ONE (07:43)
[2017-10-23] MEDS ORDERED: Propofol* 10 MG/ML 20 ML BTL IV PUSH ONE (07:43)
[2017-10-23] MEDS ORDERED: PROCHLORPERAZINE INJ 5 MG/ML 2 ML VIAL IV PRN (08:26)
[2017-10-23] MEDS ORDERED: Ondansetron ODT TAB* 4 MG PO PRN (08:26)
[2017-10-23] MEDS ORDERED: DiMENhydriNATE IV* 50 MG/ML VIAL IV PUSH PRN (08:26)
[2017-10-23] MEDS ORDERED: Acetaminophen TAB* 325 MG PO PRN (08:26)
[2017-10-23] MEDS ORDERED: fentaNYL* 50 MCG/ML 2 ML VIAL (100 MCG VIAL) IV PRN (08:26)
[2017-10-23] MEDS ORDERED: Levalbuterol 0.63MG/3ML NEB* UNIT OF USE INH PRN (08:26)
[2017-10-23] MEDS ORDERED: Naloxone* 0.4 MG/ML 1 ML VIAL IV PRN (08:26)
[2017-10-23] MEDS ORDERED: oxyCODONE/Acetamin 5/325 MG* TAB PO PRN (08:26)
[2017-10-23] MEDS ORDERED: Dextrose 50% Syringe 50 ML* 25 GM/50 ML SYRINGE IV PUSH PRN (08:32)
[2017-10-23] MEDS ORDERED: Lidocaine 2% PF * 5 ML VIAL ONE (08:37)
[2017-10-23 10:29] VITALS: BP 142/86
--- NOTE | 2017-10-23 13:38 | OP ---
CC: Dr. Watt; Dr. Whitmore; Dr. Cain; Maulik Rojas MD OPERATIVE REPORT: DATE OF OPERATION: 10/23/17 DATE OF : 48 SURGEON: Maulik Rojas MD COOKING SHOW HOST: None. ANESTHESIOLOGIST: Dr. Dowell. ANESTHESIA: General anesthetic, local infiltration. PRE-OP DIAGNOSIS: Umbilical hernia and left neck cyst. POST-OP DIAGNOSIS: Umbilical hernia and left neck cyst. OPERATIVE PROCEDURE: Open repair umbilical hernia with mesh and excision of left neck cyst. DESCRIPTION OF PROCEDURE: The patient was supine on the operating room table. After adequate general anesthetic, compression stockings, Deloris Hugger warmer, and intravenous antibiotics, the abdomen was prepped with antiseptic, draped in a sterile fashion. Local infiltrative anesthesia was administered . Supraumbilical curvilinear incision was created approximately 3 cm in size. Dissection was carried down to the 3 cm hernia. This was dissected free and reduced and the hernia defect was about 3 cm a cross. An 8 cm underlay patch was chosen. This was sutured up underneath using 0 Vicryl. This was carried out in 8 places around the circumference. The fascia was then closed over top using 0 Vicryl as well. The umbilical skin was tacked back down with 3-0 Vicryl which was also used for the subcut aneum. The skin was closed with 5-0 Vicryl followed by Steri-Strips. Attention was then turned to th e left neck, which was separately prepped and draped and then local anesthetic administered. Approxi mately 2 cm incision was created and a 2 cm sebaceous cyst mass was excised in its entirety. The inc ision was closed with interrupted 3-0 Prolene followed by sterile dressing. He tolerated the procedu re well, was awakened and brought to Recovery in good condition. No complications. No drains. Path ologic specimen is sebaceous cyst. Sponge and instrument counts are correct. Estimated blood loss 3 0 mL. [id number]/[facility] #: [id number]
== END 2017-10-23 11:38 | disposition home or self-care (01) ==
LOC: OR 06:06
PROVIDERS: ATTEND Surgery
DX: K42.9 Umbilical hernia without obstruction or gangrene (principal); L72.0 Epidermal cyst; C90.00 Multiple myeloma not having achieved remission; I48.91 Unspecified atrial fibrillation; Z86.711 Personal history of pulmonary embolism; Z79.01 Long term (current) use of anticoagulants; I50.9 Heart failure, unspecified; E78.5 Hyperlipidemia, unspecified; I10 Essential (primary) hypertension; M19.90 Unspecified osteoarthritis, unspecified site; G47.33 Obstructive sleep apnea (adult) (pediatric); E66.9 Obesity, unspecified; Z79.899 Other long term (current) drug therapy; E11.9 Type 2 diabetes mellitus without complications; Z79.84 Long term (current) use of oral hypoglycemic drugs; Z79.4 Long term (current) use of insulin
CPT/HCPCS: 88304; C1781; J0690; J1100; J2001; J2250; J2704; J3010

== ENCOUNTER 2018-01-19 11:25 | Inpatient (IN) | payer MEDICARE, OTHER ==
[2018-01-19] MEDS ORDERED: NS 0.9% 1000 ML* 1,000 ML IV ONE ×2 (11:54→15:05)
[2018-01-19] MEDS ORDERED: Diltiazem IV VIAL* 5 MG/ML 10 ML VIAL IV SLOW PU ONE ×3 (11:54→12:35)
[2018-01-19] MEDS ORDERED: Diltiazem IV* 5 MG/ML 5 ML VIAL (for loading dose/IV Push) (25 MG) ONE (12:07)
--- NOTE | 2018-01-19 12:11 | ED ---
Complex/Multi-Sys Presentation - HPI Summary HPI Summary: This patient is a 67 year old M presenting to ED with a chief complaint of vomiting and SOB since 2 days ago. Patient was sent in to the ED by his PCP earlier today. The patient rates the pain 0/10 in severity. Symptoms aggravated by nothing. Symptoms alleviated by rest. Patient reports slight fever of 99.2 and dysuria. Patient denies CP. Patient is on O2 at home. Patient is on blood thinners. PMHx of afib. - History Of Current Complaint Chief Complaint: EDGeneral Time Seen by Provider: 01/19/18 11:50 Hx Obtained From: Patient Onset/Duration: Sudden Onset, Lasting Days - 2 days ago, Still Present Timing: Constant Severity Currently: None Aggravating Factor(s): nothing Alleviating Factor(s): rest Associated Signs And Symptoms: Positive: Other - Patient reports slight fever of 99.2 and dysuria. Patient denies CP. - Allergies/Home Medications Allergies/Adverse Reactions: Allergies Allergy/AdvReac Type Severity Reaction Status Date / Time ibuprofen Allergy GI Upset Verified 10/23/17 06:26 pregabalin Allergy Swelling Verified 10/23/17 06:26 PACEMAKER Allergy See Comment Uncoded 10/23/17 06:26 Home Medications: Home Medications Atorvastatin* [Lipitor*] 20 mg PO DAILY 01/19/18 [History Confirmed 01/19/18] Calcium Carbonate [Calcium] 500 mg PO DAILY 01/19/18 [History Confirmed 01/19/18 ] Cholecalciferol (Vitamin D3) [Vitamin D3] 3,000 unit PO DAILY 01/19/18 [History Confirmed 01/19/18] Cyanocobalamin TAB* [Vitamin B12 TAB*] 1,000 mcg PO DAILY 01/19/18 [History Confirmed 01/19/18] Cyclobenzaprine TAB* [Flexeril 10 MG TAB*] 10 mg PO BID PRN 01/19/18 [History Confirmed 01/19/18] Digoxin TAB* [Lanoxin TAB*] 0.125 mg PO DAILY 01/19/18 [History Confirmed ] Diltiazem CD CAP* [Cardizem CD CAP*] 240 mg PO DAILY 01/19/18 [History Confirmed 01/19/18] Ferrous Sulfate TAB* 325 mg PO TID 01/19/18 [History Confirmed 01/19/18] Iron Polysaccharide Complex [Ferrex 150] 150 mg PO BID 01/19/18 [History Confirmed 01/19/18] Magnesium Oxide [Magnesium] 500 mg PO BID 01/19/18 [History Confirmed 01/19/18] Metoprolol Succinate XL TAB* [Toprol XL TAB*] 100 mg PO DAILY 01/19/18 [History Confirmed 01/19/18] Pantoprazole TAB (NF) [Protonix TAB (NF)] 40 mg PO BID 01/19/18 [History Confirmed 01/19/18] Ramipril CAP* [Altace CAP*] 2.5 mg PO BID 01/19/18 [History Confirmed 01/19/18] Sertraline* [Zoloft*] 100 mg PO DAILY 01/19/18 [History Confirmed 01/19/18] Vitamin E CAP* 400 unit PO DAILY 01/19/18 [History Confirmed 01/19/18] Warfarin TAB(*) [Coumadin TAB(*)] 3 mg PO TUTHSA 01/19/18 [History Confirmed 02/26] Warfarin TAB(*) [Coumadin TAB(*)] 4 mg PO SUMOWEFR 01/19/18 [History Confirmed 01/19/18] glipiZIDE TAB.XL* [Glucotrol XL*] 5 mg PO DAILY 01/19/18 [History Confirmed 02/26] metFORMIN* [Glucophage 500 MG TAB *] 500 mg PO BID 01/19/18 [History Confirmed 01/19/18] PMH/Surg Hx/FS Hx/Imm Hx Endocrine/Hematology History: Reports: Hx Anticoagulant Therapy, Hx Bone Marrow Disease, Hx Diabetes, Hx Anemia - HX OF WITH TRANSFUSIONS IN 06/2013, Other Endocrine/Hematological Disorders - multiple myeloma Denies: Hx Thyroid Disease Cardiovascular History: Reports: Hx Congestive Heart Failure, Hx Coronary Artery Disease, Hx Hypertension, Hx Pacemaker/ICD, Hx Syncope, Hx Valvular Heart Disease, Other Cardiovascular Problems/Disorders - Cardiac cath, dyslipidemia, Denies: Hx Peripheral Vascular Disease Respiratory History: Reports: Hx Asthma - HAS PRN INHALERS, Hx Chronic Obstructive Pulmonary Disease (COPD) - 2-3 liters O2 at home, Hx Pulmonary Embolism, Hx Sleep Apnea - NO CPAP, Other Respiratory Problems/Disorders - HX OF MULTIPLE MYELOMA GI History: Reports: Hx Gastroesophageal Reflux Disease, Hx Ulcer - PUD History: Reports: Hx Kidney Infection - 1990s Denies: Hx Dialysis, Hx Renal Disease Musculoskeletal History: Reports: Hx Arthritis, Hx Back Problems, Hx Bursitis, Hx Orthopedic Injury - pelvic fracture 01/2014 Comment Only: Other Musculoskeletal History - MULTIE Sensory History: Reports: Hx Cataracts - RIGHT EYE, Hx Contacts or Glasses - HOME, Hx Glaucoma Denies: Hx Deafness, Hx Hearing Aid Opthamlomology History: Reports: Hx Cataracts - RIGHT EYE, Hx Contacts or Glasses - HOME, Hx Glaucoma Neurological History: Reports: Other Neuro Impairments/Disorders - HX OF SYNCOPE Denies: Hx Seizures, Hx Transient Ischemic Attacks (TIA) Psychiatric History: Reports: Hx Anxiety, Hx Depression - anxiety - Cancer History Cancer Type, Location and Year: multiple myeloma Hx Chemotherapy: Yes - last chemo friday Hx Radiation Therapy: No Hx Palliative Cancer Treatment: No - Surgical History Surgery Procedure, Year, and Place: cardiac cath/CARDIAC STENT, PACEMAKER, HIP REPLACEMENT Hx Anesthesia Reactions: No - Immunization History Date of Tetanus Vaccine: PT STATES UNSURE Date of Influenza Vaccine: PT STATES UNSURE Infectious Disease History: Yes Infectious Disease History: Reports: Hx of Known/Suspected MRSA - NOSE Denies: Hx Clostridium Difficile, Hx Hepatitis, Hx Human Immunodeficiency Virus (HIV), Hx Shingles, Hx Tuberculosis, History Other Infectious Disease, Traveled Outside the [place] in Last 30 Days - Family History Known Family History: Positive: Other - mother had circulation problems, father had angina. - Social History Alcohol Use: Rare Hx Substance Use: No Substance Use Type: Reports: None Hx Tobacco Use: Yes Smoking Status (MU): Former Smoker Type: Cigarettes Amount Used/How Often: 1/2 PPD Length of Time of Smoking/Using Tobacco: 20 years Have You Smoked in the Last Year: No Review of Systems Positive: Fever - slight fever of 99.2 . Negative: Chills Negative: Erythema Negative: Sore Throat Negative: Chest Pain Positive: Shortness Of Breath. Negative: Cough Positive: Vomiting. Negative: Abdominal Pain, Nausea Positive: dysuria. Negative: hematuria Negative: Myalgia, Edema Negative: Rash Neurological: Other - denies dizziness All Other Systems Reviewed And Are Negative: Yes Physical Exam - Summary Physical Exam Summary: Constitutional: Well-developed, Well-nourished, Alert. (-) Distressed Skin: Warm, Dry HENT: Normocephalic; Atraumatic Eyes: Conjunctiva normal Neck: Musculoskeletal ROM normal neck. (-) JVD, (-) Stridor, (-) Tracheal deviation Cardio: Rapid irregular pulse, Appeared tachypnic; Intact distal pulses; The pedal pulses are 2+ and symmetric. Radial pulses are 2+ and symmetric. (-) Murmur Pulmonary/Chest wall: Effort normal. (-) Respiratory distress, (-) Wheezes, (-) Rales Abd: Soft, (-) epigastric tenderness, (-) Distension, (-) Guarding, (-) Rebound Musculoskeletal: (-) Edema Lymph: (-) Cervical adenopathy Neuro: Alert, Oriented x3 Psych: Mood and affect Normal Triage Information Reviewed: Yes Vital Signs On Initial Exam: Initial Vitals Temp Pulse Resp BP Pulse Ox 97.5 F 107 18 146/99 95 01/19/18 11:28 01/19/18 11:28 01/19/18 11:28 01/19/18 11:28 01/19/18 11:28 Vital Signs Reviewed: Yes Diagnostics - Vital Signs Vital Signs Temp Pulse Resp BP Pulse Ox 01/19/18 11:28 97.5 F 107 18 146/99 95 - Laboratory Result Diagrams: 01/19/18 12:04 01/19/18 12:04 Lab Statement: Any lab studies that have been ordered have been reviewed, and results considered in the medical decision making process. - Radiology CXR Radiology Interpretation Completed By: Radiologist - NO ACTIVE CARDIOPULMONARY DISEASE IS NOTED. ED physician has reviewed this radiology report. - EKG 1142 Cardiac Rate: Other Rate - 183 BPM afib with rapid V-rate EKG Rhythm: Atrial Fibrillation - with rapid V-rate EKG Interpretation: ST depression lateral (demand ischemia?), no STEMI Re-Evaluation - Re-Evaluation First Eval Re-Evaluation Time: 13:30 Comment: Discussed further care with the patient. Complex Multi-Symp Course/Dx Assessment/Plan: The patient will be given 30 mL/kg of cardizem due to his hx of CHF. He will also be given another liter of fluids. Borderline BP requiring rpeate doses of IV medications for rate control. Recommend admit to ICU for hemodynamic monitoring. - Diagnoses Provider Diagnoses: UTI (urinary tract infection), Sepsis, Atrial fibrillation with rapid ventricular response - Physician Notifications Discussed Care Of Patient With: Jessie Connors Time Discussed With Above Provider: 15:32 Instructed by Provider To: Other - Consulted Dr. Connors who accepts the patient for admission. - Critical Care Time Critical Care Time: 30-74 min - 45 minutes Discharge - Sign-Out/Discharge Documenting (check all that apply): Patient Departure - Admit - Discharge Plan Condition: Stable Disposition: HOME Referrals: Marcin Watt MD [Primary Care Provider] - - Attestation Statements Document Initiated by Scribe: Yes Documenting Scribe: Mickey Somers Provider For Whom Scribe is Documenting (Include Credential): Compa Mari MD Scribe Attestation: Mickey Contreras, scribed for Compa Mari MD on 01/19/18 at 1618.
[2018-01-19 12:13] LABS: ABS Basophils 0.1 10^3/ul (0-0.2); ABS Eosinophils 0 10^3/ul (0-0.6); ABS Lymphocytes 0.8 10^3/ul (1.0-4.8); ABS Neutrophils 8.1 10^3/ul (1.5-7.7); ABS Nucleated RBC 0 10^3/ul; Eosinophil % 0.4 % (0-6); Hematocrit 45 % (42-52); Hemoglobin 14.6 g/dl (14.0-18.0); Lymphocyte % 7.8 % (25-47); Mean Corpuscular HGB Conc 33 g/dl (31-36); Mean Corpuscular Hemoglobin 25 pg (27-31); Mean Corpuscular Volume 77 fL (80-94); Mean Platelet Volume 8.8 um3 (7.4-10.4); Nucleated Red Blood Cells % 0.3; Platelet Count 146 10^3/ul (150-450); Red Cell Distribution Width 18 % (10.5-15)
--- OUTSIDE RECORDS SUMMARY | 2018-01-19 12:16 | XMS REPORT ---
:1950 External Reference #:[id number] Author Organization [employer] Address [address] [place] [address] [place] [address] Phone [phone] Care Team Providers Name Role Phone Marcin Watt MD Primary Care Physician Unavailable Payers Type Date Identification Numbers Payment Provider Subscriber Medicare Primary Policy Number: [id number] Medicare Bienvenido Ferreira PayID: [id number] [address] [place] [address] Commercial Effective: 2013 Policy Number: Aet[employer] Sergey Sanders Jaqueline [id number] Group Number: [id number] [address] PayID: [id number] OSMAN Patrick [phone] Medigap Part B Expires: Policy Number: [employer] Insurance Sergey Sanders Jaqueline 2016 [id number] Group Number: [id number] [address] PayID: [id number] RosebudOSMAN Chavez [id number] Commercial Effective: 2015 Policy Number: 70% [facility] Bienvenido Ferreira Expires: 2016 PayID: [id number] [place] [address] Commercial Effective: 2016 Policy Number: [id number] [facility] Bienvenido Ferreira Expires: 2018 Group Number: [id number] [address] PayID: [id number] [address] [place] [address] Problems Date Description Provider Status Onset: 12/02/2013 Atrial fibrillation Joce Cain M.D. Active Onset: 12/02/2013 Congestive heart failure Joce Cain M.D. Active Onset: 12/02/2013 Coronary arteriosclerosis Joce Cain M.D. Active Onset: 12/02/2013 Low blood pressure Joce Cain M.D. Active Onset: 02/10/2014 Syncope and collapse Joce Cain M.D. Active Onset: 10/19/2015 Localized, secondary osteoarthritis Dameon Chavarria M.D. Active of the pelvic region and thigh Onset: 10/19/2015 Prosthetic arthroplasty of the hip Dameon Chavarria M.D. Active Onset: 01/24/2016 Disorder of bursa of shoulder Dameon Chavarria M.D. 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 Active pelv ring, 7thD Onset: 02/26/2017 Sciatica Dameon Chavarria M.D. Active Social History Type Date Description Comments Marital Status Single Lives With Male Partner Occupation Medically Retired ETOH Use Denies alcohol use Smoking Patient is a former smoker Quit in June 2012 Recreational Drug Use Denies Drug Use Daily Caffeine Does Not Consume Caffeine Exercise Type/Frequency twice a week 5 minutes on bike once to twice per week General Hx Text Allergies, Adverse Reactions, Alerts Date Description Reaction Status Severity Comments 10/12/2014 Lyrica swelling active 10/12/2014 Ibuprofen ulcers active 12/02/2013 NKDA inactive Medications Medication Date Status Form Strength Qnty SIG Indications Ordering Provider Gabapentin 02/26 Active Capsules 300mg 60cap Take One To M54.41 s Two Aura, Capsules By M.DJailyn Mouth AT Bedtime Amoxicillin 03/09 Active Capsules 500mg 12cap 4 tablets 1 s hour before Aura, dental work Maureen Metformin HCL 12/27 Active Tablets 1000mg 1 by mouth twice daily Pantoprazole Active Tablets 40mg 90tab [address] yoder every day Glipizide XL Active Tablets 5mg 90tab 1 by mouth Unknown / ER 24HR s every day Lorazepam Active Tablets 1mg prn per DrJailyn Unknown / Myranda's office (occ use) Calcium Active Tablets 500mg 1 by mouth Unknown /0000 every day Am Vitamin E Complete Active 400Units 1 tablet po Unknown /0000 daily Am Magnesium Active Tablets 250mg 2 po bid Unknown /0000 Warfarin Sodium Active Tablets 3mg take as Unknown /0000 directed (on 3 and 2) Sertraline HCL Active Tablets 100mg Take One Unknown /0000 Tablet By Mouth Every Day Am Cartia XT Active Caps ER 240mg Take One Unknown /0000 24HR Capsule By Mouth Every Day Am Digoxin Active Tablets 125mcg 60tab take 2 Joce /0000 s tablet by F. mouth Mauser, 4x/week, 3 M.D. tabs x 3 times a week Furosemide Active Tablets 20mg Take One Unknown /0000 Tablet By Mouth Every Day Am (patient not currently taking) Atorvastatin Active Tablets 20mg 1 Tablet By Unknown Calcium /0000 Mouth Every Day PM Vitamin B 12 Active Lozenges 1000mcg 1 by mouth Unknown /0000 every day Cyclobenzaprine Active Tablets 5mg 2 po qd prn Unknown HCL /0000 Ferrex 150 Active Capsules 150mg 1 by mouth Unknown /0000 bid Metoprolol Active Tablets 100mg 1 by mouth Unknown Succinate ER / ER 24HR every day Ramipril Active Capsules 2.5mg 1 by mouth Unknown /0000 every day Vitamin D3 Active Chewtabs 1000Unit 2 tabs Unknown /0000 daily in am and 1 tab daily in pm Dulera Active Aerosol 100-5mcg/ inhale two Unknown /0000 Act puffs by mouth twice a day as needed Sealy 09/25 Hx Tablets 5-325mg 14tab 1 tab by Emily Somers s mouth every Foster, 4-6 hour as needed pain Sealy 02/26 Hx Tablets 5-325mg 60tab 1-2 by M54.41 Dameon s mouth every Aura, - 4 to 6 M.D. 06/04 hours needed Revlimid 08/26 Hx Capsules 10mg one po qpm, 21 days on - and 7 days 04/30 Metoprolol 04/27 Hx Tablets 25mg 180ta 3 by mouth Joce Succinate ER 24HR bs every F. - morning and Mauser, 12/15 3 tab every M.D. /2016 night (increased 08/27/16) Cyclobenzaprine 11/22 Hx Tablets 10mg 60tab Take One Z96.641 s Tablet By Aura, - Mouth Every M.D. 08/16 8 Hours Needed PT States He Is No Longer Taking Oxycodone-Acetamin 10/27 Hx Tablets 5-325mg 90tab one to two en s tabs by Aura, - mouth 4-6 M.D. 08/16 hours needed for pain Coumadin 10/12 Hx Tablets 2mg 30tab 1-3 tabs at s dinner time Kristi Chavarria as directed M.D. 12/27 Cephalexin 09/06 Hx Capsules 500mg 9caps three times Husam a day for 3 D. Brand, - days M.D. 05/19 Sertraline HCL 08/03 Hx Tablets 100mg 90tab 1 by mouth s every day F. - Luanneuser, 07/29 M.D. Amiodarone HCL 08/01 Hx Tablets 100mg 1 by mouth once a day . - Luanneuser, 12/15.D. Magnesium Oxide 02/22 Hx Tablets 250mg 90tab 4 tabs by Joce s mouth every F. - day Mauser, 12/27 M.D. Amiodarone HCL 02/10 Hx Tablets 200mg 100ta 1 po qd bs . - Luanneuser, 08/01 M.D. Digox 01/03 Hx Tablets 125mcg 1 by mouth Joce every day F. - Luanneuser, 01/28 M.D. Amiodarone HCL 12/02 Hx Tablets 200mg 100ta 1/2 by Joce bs mouth every F. - day Mauser, 02/10 M.D. Digox 12/02 Hx Tablets 125mcg 30tab 1 po qd Joce s F. - Payton, 01/13 M.D Labetalol HCL 12/02 Hx Tablets 200mg 100ta 1/2 by bs mouth twice F. - a day Payton, 08/02 starting .D. 7.25.14 Doxazosin Mesylate 12/02 Hx Tablets 4mg 1/2 tablet po daily . Kristi Cain, 12/16 M.D. Quinapril HCL 12/02 Hx Tablets 40mg 1/2 po qd (on hold F. - starting Payton, 03/2101/29/14) .D Vitamin E Hx Capsules 400Unit 1 by mouth Unknown /0000 every day - 08/02 Amiodarone HCL Hx Tablets 200mg 30tab 1 by mouth Unknown /0000 s every day - 12/02 Aspirin Hx Tablets 81mg 1 by mouth Unknown /0000 every day( - on hold) 04/30 Bactrim Hx Tablets 400-80mg 30tab 1 by mouth Unknown /0000 s friday, - friday, 12/27 /2014 Digox Hx Tablets 125mcg 100ta 1 by mouth Unknown /0000 bs every day - 12/02 Terbinafine HCL Hx Tablets 250mg 90tab 1 by mouth Unknown /0000 s every day - 05/08 MS Contin Hx Tablets 30mg 42tab 1 by mouth Unknown /0000 ER s tid - 03/25 Quinapril HCL Hx Tablets 40mg 90tab 1/2 po qd s Jailyn Cain, 01/13.D Dexamethasone Hx Tablets 4mg 90tab 5 tablets Unknown /0000 s two days - per week 08/02 with chemo /0155 Doxazosin Mesylate Hx Tablets 4mg 30tab 1 by mouth Unknown /0000 s every day - 12/02 Atorvastatin Hx Tablets 20mg 30tab take 1/2 Unknown Calcium /0000 s tab at hs - 07/22 Valacyclovir HCL Hx Tablets 1000mg 10tab 1 tabs po Unknown /0000 s daily - 10/13 Labetalol HCL 00 Hx Tablets 200mg 200ta 1 po daily Unknown /0000 bs - 12/02 Amitriptyline HCL Hx Tablets 25mg 30tab 1 by mouth Unknown /0000 s every night - at bedtime 12/07 Hydrocodone / Hx prn Unknown Bitartrate /0000 - 03/24 Lactulose Hx Solution 20GM/30ML 1unit 2 oz daily Unknown /0000 s prn - 12/27 Miralax Hx Packet 3350NF 1mon 17 gm every Unknown /0000 day as - needed 07/29 Ondansetron HCL Hx Tablets 4mg 30tab one by Unknown /0000 s mouth every - 8 hours as 07/29 needed nausea Prochlorperazine Hx Tablets 10mg 60tab four times Unknown Maleate /0000 s a day as - needed 07/30 Cyclophosphamide Hx on chemo Unknown / days - 08/02 Docusate Sodium Hx Capsules 100mg 2 by mouth Unknown /0000 twice a day - 07/29 Morphine Sulfate Hx Tablets 30mg 60tab 1 tab po Unknown ER /0000 ER s q12h - 04/26 Oxycodone HCL Hx Tablets 10mg 1 by mouth Unknown /0000 as - directed, 12/27 pain Alph-E Hx Capsules 400Unit 1 po qd Unknown /0000 - 10/14 Dulera Hx Aerosol 100-5mcg/ 2 puff Unknown /0000 Act twice a day - prn 12/27 Hydrocortisone Hx Cream 1% apply to Unknown /0000 affected - area twice 07/29 a /2015 Lisinopril Hx Tablets 5mg 1/2 tab by Unknown /0000 mouth every - day 12/27 Spiriva Handihaler Hx Capsules 18mcg 1 Unknown /0000 inhalation - by mouth 12/27 morning -- on hold until 10/24/14 Spironolactone 00 Hx Tablets 25mg 1 by mouth Unknown /0000 every day - 05/08 Metoprolol Hx Tablets 37.5mg 1 and 1/2 Unknown Succinate ER /0000 ER 24HR tablet po - b.i.d 04/27 Gabapentin Hx Capsules 300mg 1 by mouth Unknown /0000 three times - a day 04/26 Nystatin 00/ Hx Powder Unknown / - 07/29 Docusate Sodium Hx Capsules 100mg 1 by mouth Unknown /0000 twice a day - 07/29 Bactrim DS 00 Hx Tablets 800-160mg 1 by mouth Unknown /0000 twice a day - 08/15 Spiriva Hx Capsules 18mcg 1 unit Unknown (Tiotropium) /0000 inhalation Inhaler - daily 04/26 Ferrousul Hx Tablets 325(65Fe) 1 by mouth Unknown /0000 mg bid - 12/15 Hydrocodone-Acetam Hx Tablets 5-325mg 1 by mouth Unknown inophen /0000 every 4-6 - hours prn. 10/13 Aleve Hx Tablets 220mg as needed Unknown / - 12/15 Clopidogrel Hx Tablets 75mg 30tab Take One Joce Bisulfate /0000 s Tablet By F. - Mouth Every Mauser, 07/22 Day M.D. Poly-Iron 150 Hx Capsules 150mg take one Unknown /0000 capsule by - mouth once 04/30 twice daily Fentanyl Hx Patches 25mcg/HR Apply 1 Unknown /0000 72HR Patch To - Skin And 04/30 Every 3 Days Maximum Daily Dose 1 P Cartia XT Hx Caps ER 120mg Take One Unknown /0000 24HR Capsule By - Mouth AT 04/30 Bedtime Carvedilol Hx Tablets 25mg Take One Unknown /0000 Tablet By - Mouth Twice 04/30 A Day Am/PM Colace Hx Capsules 100mg 2 po qd Unknown /0000 - 10/13 Medications Administered in Office Medication Date Status Form Strength Qnty SIG Indications Ordering Provider Depomedrol Administered Injection Dameon 40MG Pipe Chavarria M.D. Vital Signs Date Vital Result Comment 10/31/2017 Heart Rate 76 /min BP Systolic 138 mmHg BP Diastolic 84 mmHg Respiratory Rate 18 /min Body Temperature 97.6 F 10/16/2017 Height 74 inches 6'2" Weight 251.00 lb w/shoes Heart Rate 90 /min BP Systolic Sitting 140 mmHg lue reg cuff BP Diastolic Sitting 80 mmHg lue reg cuff BMI (Body Mass Index) 32.2 kg/m2 09/25/2017 Heart Rate 68 /min BP Systolic 136 mmHg BP Diastolic 80 mmHg Respiratory Rate 18 /min Body Temperature 98.3 F 09/23/2017 Height 74 inches 6'2" Weight 242.00 lb Heart Rate 66 /min BP Systolic Sitting 128 mmHg BP Diastolic Sitting 84 mmHg Respiratory Rate 18 /min Body Temperature 98.2 F BMI (Body Mass Index) 31.1 kg/m2 05/01/2017 Height 74 inches 6'2" Weight 239.00 lb per pt Heart Rate 80 /min BP Systolic Sitting 126 mmHg LA reg cuff BP Diastolic Sitting 72 mmHg LA reg cuff BMI (Body Mass Index) 30.7 kg/m2 Ejection Fraction 45-50% Echo 04/09/17 02/26/2017 Height 74 inches 6'2" Weight 262.00 lb BP Systolic 148 mmHg BP Diastolic 78 mmHg Respiratory Rate 20 /min Pain Level 6 BMI (Body Mass Index) 33.6 kg/m2 02/12/2017 Height 74 inches 6'2" Weight 262.00 lb BP Systolic 124 mmHg BP Diastolic 62 mmHg Respiratory Rate 20 /min Body Temperature 97.8 F Pain Level 10 BMI (Body Mass Index) 33.6 kg/m2 12/16/2016 Height 74 inches 6'2" Weight 262.00 lb with shoes Heart Rate 74 /min BP Systolic Sitting 120 mmHg Rue lg cuff BP Diastolic Sitting 78 mmHg Rue lg cuff Respiratory Rate 16 /min BMI (Body Mass Index) 33.6 kg/m2 Ejection Fraction 55-60% date 08/14/16 ECHO 08/27/2016 Height 74 inches 6'2" Weight 265.00 lb with shoes Heart Rate 88 /min BP Systolic Sitting 140 mmHg LA lrg cuff BP Diastolic Sitting 80 mmHg LA lrg cuff O2 % BldC Oximetry 96 % at room air BMI (Body Mass Index) 34.0 kg/m2 Ejection Fraction 55% - 60% echo 08/14/16 07/31/2016 Height 74 inches 6'2" Weight 268.00 lb with shoes Heart Rate 97 /min BP Systolic Sitting 148 mmHg LA, reg cuff BP Diastolic Sitting 82 mmHg LA, reg cuff BP Systolic Standing 140 mmHg LA BP Diastolic Standing 78 mmHg LA Respiratory Rate 24 /min O2 % BldC Oximetry 98 % w/ 1 lap ~50 ft=98% on Ra and HR 115 bpm BMI (Body Mass Index) 34.4 kg/m2 07/23/2016 Height 74 inches 6'2" Weight 265.00 lb with shoes Heart Rate 98 /min BP Systolic Sitting 166 mmHg Ra reg cuff BP Diastolic Sitting 98 mmHg Ra reg cuff BMI (Body Mass Index) 34.0 kg/m2 Ejection Fraction 60% - 65% echo 10/13/14 01/31/2016 Height 74 inches 6'2" Weight 270.00 lb Heart Rate 83 /min BP Systolic 184 mmHg BP Diastolic 100 mmHg BMI (Body Mass Index) 34.7 kg/m2 01/24/2016 Height 74 inches 6'2" Weight 282.00 lb BP Systolic Sitting 132 mmHg BP Diastolic Sitting 82 mmHg Pain Level 10 BMI (Body Mass Index) 36.2 kg/m2 10/30/2015 Height 74 inches 6'2" Weight 274.00 lb with shoes Heart Rate 92 /min BP Systolic 176 mmHg LA lrg cuff BP Diastolic 96 mmHg LA lrg cuff BP Systolic Sitting 138 mmHg la repeat sit BP Diastolic Sitting 86 mmHg la repeat sit BMI (Body Mass Index) 35.2 kg/m2 Ejection Fraction 60% - 65% 10/13/14 echo 10/19/2015 Height 74 inches 6'2" Weight 265.00 lb Heart Rate 72 /min BP Systolic Sitting 164 mmHg BP Diastolic Sitting 82 mmHg Respiratory Rate 18 /min Pain Level 0 BMI (Body Mass Index) 34.0 kg/m2 08/17/2015 Height 74 inches 6'2" Weight 265.00 lb with shoes Heart Rate 80 /min BP Systolic Sitting 120 mmHg La reg cuff BP Diastolic Sitting 88 mmHg La reg cuff BP Systolic Standing 118 mmHg La reg cuff BP Diastolic Standing 84 mmHg La reg cuff Respiratory Rate 17 /min BMI (Body Mass Index) 34.0 kg/m2 Ejection Fraction 60-65% date 10/13/14 ECHO 07/31/2015 Height 74 inches 6'2" Weight 264.00 lb w/shoes Heart Rate 84 /min BP Systolic Sitting 158 mmHg LA reg cuff BP Diastolic Sitting 94 mmHg LA reg cuff BMI (Body Mass Index) 33.9 kg/m2 Ejection Fraction 60-65 echo 10/13/14 05/09/2015 Height 74 inches 6'2" Weight 256.00 lb Heart Rate 88 /min BP Systolic Sitting 142 mmHg LA reg cuff BP Diastolic Sitting 96 mmHg LA reg cuff BP Systolic Standing 142 mmHg LA BP Diastolic Standing 96 mmHg LA Respiratory Rate 22 /min BMI (Body Mass Index) 32.9 kg/m2 Ejection Fraction 60-65% 10/13/14 04/27/2015 Height 74 inches 6'2" Weight 253.50 lb with shoes Heart Rate 90 /min BP Systolic Sitting 150 mmHg LA, regular cuff BP Diastolic Sitting 80 mmHg LA, regular cuff BMI (Body Mass Index) 32.5 kg/m2 Ejection Fraction 60-65% echo 10/13/14 01/27/2015 Height 74 inches 6'2" Weight 237.00 lb Pain Level 0 BMI (Body Mass Index) 30.4 kg/m2 10/19/2014 Height 74 inches 6'2" Weight 237.00 lb w/o shoes Heart Rate 66 /min BP Systolic Sitting 90 mmHg Rue, reg cuff BP Diastolic Sitting 60 mmHg Rue, reg cuff BP Systolic Recheck 100 mmHg right arm reg cuff BP Diastolic Recheck 64 mmHg right arm reg cuff BMI (Body Mass Index) 30.4 kg/m2 Ejection Fraction 60-65% Visual Ef as of 10/13/14 10/12/2014 Height 74 inches 6'2" Weight 236.00 lb Heart Rate 75 /min BP Systolic 104 mmHg BP Diastolic 57 mmHg Pain Level 3 varies upon activity BMI (Body Mass Index) 30.3 kg/m2 09/16/2014 Height 74 inches 6'2" Weight 234.00 lb per pt report Heart Rate 68 /min regular BP Systolic Sitting 132 mmHg right arm reg cuff BP Diastolic Sitting 66 mmHg right arm reg cuff BP Systolic Standing 128 mmHg right arm reg cuff BP Diastolic Standing 64 mmHg right arm reg cuff Respiratory Rate 20 /min BMI (Body Mass Index) 30.0 kg/m2 Ejection Fraction 60-65% 08/25/2014 09/01/2014 Height 74 inches 6'2" Weight 241.00 lb with shoes Heart Rate 72 /min BP Systolic Sitting 120 mmHg Ra reg cuff BP Diastolic Sitting 70 mmHg Ra reg cuff BP Systolic Standing 124 mmHg Ra reg cuff BP Diastolic Standing 70 mmHg Ra reg cuff Respiratory Rate 17 /min BMI (Body Mass Index) 30.9 kg/m2 Ejection Fraction 60-65% date 08/25/14 08/26/2014 Height 74 inches 6'2" Weight 243.00 lb Body Temperature 98.4 F Pain Level 10 BMI (Body Mass Index) 31.2 kg/m2 08/01/2014 Height 74 inches 6'2" Weight 238.00 lb Heart Rate 66 /min BP Systolic Sitting 138 mmHg LA, reg BP Diastolic Sitting 82 mmHg LA, reg BMI (Body Mass Index) 30.6 kg/m2 07/08/2014 Height 74 inches 6'2" Heart Rate 80 /min BP Systolic 151 mmHg BP Diastolic 82 mmHg 05/27/2014 Height 74 inches 6'2" Heart Rate 92 /min BP Systolic 156 mmHg BP Diastolic 81 mmHg 04/22/2014 Height 74 inches 6'2" Heart Rate 86 /min BP Systolic 147 mmHg BP Diastolic 87 mmHg 03/25/2014 Height 74 inches 6'2" Weight 244.00 lb Pain Level 10 BMI (Body Mass Index) 31.3 kg/m2 03/21/2014 Height 74 inches 6'2" Heart Rate 100 /min BP Systolic Sitting 122 mmHg Ra reg cuff BP Diastolic Sitting 68 mmHg Ra reg cuff Respiratory Rate 18 /min 03/04/2014 Height 74 inches 6'2" Heart Rate 85 /min BP Systolic 138 mmHg BP Diastolic 73 mmHg 02/11/2014 Height 74 inches 6'2" Heart Rate 86 /min BP Systolic 125 mmHg BP Diastolic 75 mmHg 02/10/2014 Height 74 inches 6'2" Weight 244.75 lb Heart Rate 90 /min BP Systolic Sitting 140 mmHg BP Diastolic Sitting 62 mmHg Respiratory Rate 16 /min BMI (Body Mass Index) 31.4 kg/m2 02/04/2014 Height 74 inches 6'2" Heart Rate 87 /min BP Systolic 107 mmHg BP Diastolic 70 mmHg 01/28/2014 Height 74 inches 6'2" Weight 240.00 lb Heart Rate 98 /min BP Systolic 81 mmHg BP Diastolic 53 mmHg BMI (Body Mass Index) 30.8 kg/m2 01/13/2014 Height 74 inches 6'2" Weight 237.75 lb Heart Rate 90 /min BP Systolic Sitting 164 mmHg BP Diastolic Sitting 84 mmHg BMI (Body Mass Index) 30.5 kg/m2 12/16/2013 Height 74 inches 6'2" Weight 245.00 lb Heart Rate 88 /min BP Systolic Sitting 102 mmHg BP Diastolic Sitting 54 mmHg Respiratory Rate 15 /min BMI (Body Mass Index) 31.5 kg/m2 12/02/2013 Height 74 inches 6'2" Weight 239.00 lb Heart Rate 86 /min HRR BP Systolic Sitting 82 mmHg left arm, reg cuff BP Diastolic Sitting 54 mmHg left arm, reg cuff BP Systolic Standing 68 mmHg left arm, reg cuff BP Diastolic Standing 40 mmHg left arm, reg cuff Respiratory Rate 20 /min BMI (Body Mass Index) 30.7 kg/m2 Results Test Date Test Result H/L Range Note CBC Auto Diff 12/22/2017 White Blood Count 5.4 10^3/uL 3.5-10.8 Red Blood Count 5.48 10^6/uL High 4.00-5.40 Hemoglobin 14.3 g/dL 14.0-18.0 Hematocrit 44 % 42-52 Mean Corpuscular Volume 80 fL 80-94 Mean Corpuscular Hemoglobin 26 pg Low 27-31 Mean Corpuscular HGB Conc 33 g/dL 31-36 Red Cell Distribution Width 18 % High 10.5-15 Platelet Count 175 10^3/uL 150-450 Mean Platelet Volume 8.7 um3 7.4-10.4 Abs Neutrophils 2.7 10^3/uL 1.5-7.7 Abs Lymphocytes 2.0 10^3/uL 1.0-4.8 Abs Monocytes 0.5 10^3/uL 0-0.8 Abs Eosinophils 0.2 10^3/uL 0-0.6 Abs Basophils 0 10^3/uL 0-0.2 Abs Nucleated RBC 0 10^3/uL Granulocyte % 49.5 % 38-83 Lymphocyte % 36.1 % 25-47 Monocyte % 9.8 % High 0-7 Eosinophil % 4.0 % 0-6 Basophil % 0.6 % 0-2 Nucleated Red Blood Cells % 0.3 Inr/Protime 12/22/2017 Inr 1.78 High 0.77-1.02 Comp Metabolic Panel 12/22/2017 Sodium 145 mmol/L 135-145 Potassium 4.7 mmol/L 3.5-5.0 Chloride 106 mmol/L 101-111 Albumin 4.1 g/dL 3.2-5.2 Glucose 173 mg/dL High 70-100 Blood Urea Nitrogen 18 mg/dL 6-24 Creatinine 0.94 mg/dL 0.67-1.17 BUN/Creatinine Ratio 19.1 8-20 Total Protein 6.3 g/dL Low 6.4-8.9 Globulin 2.2 g/dL 2-4 Albumin/Globulin Ratio 1.9 1-3 Alkaline Phosphatase 132 U/L High 34-104 Alt 15 U/L 7-52 Ast 17 U/L 13-39 Egfr Non- 79.8 >60 Egfr 96.6 >60 1 Co2 Carbon Dioxide 30 mmol/L 22-32 Anion Gap 9 mmol/L 2-11 Calcium 9.5 mg/dL 8.6-10.3 Total Bilirubin 0.60 mg/dL 0.2-1.0 Liborio Negron Torres/Lambda Free Light Chains 12/22/2017 Liborio Negron Torres Free Light Chain 0.9830 mg/ dL 2 Ser Lambda Free Light Chain 0.9670 mg/dL 3 Liborio Negron Torres/Lambda Free Light Chain 1.02 4 Immunoglobulins Serum Quant 12/22/2017 Immunoglobulin G 651 mg/dL 767 - 1590 5 Immunoglobulin M 64 mg/dL 37 - 286 Immunoglobulin A 10 mg/dL 61 - 356 Protein Electrophoresis 12/22/2017 Total Protein(Pep) 6.6 g/dL 6.3 - 7.9 Albumin 3.6 g/dL 3.4-4.7 Alpha-1 Globulin 0.3 g/dL 0.1-0.3 Alpha-2 Globulin 1.0 g/dL 0.6-1.0 Beta Globulin 1.0 g/dL 0.7-1.2 Gamma Globulin 0.7 g/dL 0.6-1.6 Albumin/Globulin Ratio 1.18 M Carroll 0.5 g/dL Impression See Comment 6 Basic Metabolic Panel 11/10/2017 Sodium 140 mmol/L 135-145 Potassium 4.5 mmol/L 3.5-5.0 Chloride 100 mmol/L Low 101-111 Co2 Carbon Dioxide 27 mmol/L 22-32 Anion Gap 13 mmol/L High 2-11 Glucose 227 mg/dL High 70-100 Blood Urea Nitrogen 26 mg/dL High 6-24 Creatinine 1.39 mg/dL High 0.67-1.17 BUN/Creatinine Ratio 18.7 8-20 Calcium 9.8 mg/dL 8.6-10.3 Egfr Non- 50.8 >60 Egfr 61.5 >60 7 Laboratory test 11/10/2017 Digoxin 1.3 ng/ml 0.8-2.0 8 finding Laboratory test 10/23/2017 Point of Care 324 mg/dL High 70-100 9 finding Glucose Laboratory test 10/23/2017 Point of Care 306 mg/dL High 70-100 10 finding Glucose Laboratory test 10/23/2017 Point of Care 219 mg/dL High 70-100 11 finding Glucose Laboratory test 10/23/2017 Surgical Pathology SEE RESULT BELOW 12 finding Basic Metabolic Panel 10/20/2017 Sodium 140 mmol/L 139-145 Potassium 4.1 mmol/L 3.5-5.0 Chloride 97 mmol/L Low 101-111 Co2 Carbon Dioxide 32 mmol/L 22-32 Anion Gap 11 mmol/L 2-11 Glucose 97 mg/dL 70-100 Blood Urea Nitrogen 28 mg/dL High 6-24 Creatinine 1.22 mg/dL High 0.67-1.17 BUN/Creatinine Ratio 23.0 High 8-20 Calcium 9.4 mg/dL 8.6-10.3 Egfr Non- 59.1 >60 Egfr 76.0 >60 13 Laboratory test finding 10/20/2017 Digoxin 0.9 ng/ml 0.8-2.0 Laboratory test finding 06/25/2017 Point of Care Glucose 171 mg/dL High 70 -100 14 Inr/Protime 05/08/2017 Inr 5.83 High 0.77-1.02 15 Lipid Profile 05/08/2017 Triglycerides 194 mg/dL 16 (Trig/Chol/HDL) Cholesterol 114 mg/dL 17 HDL Cholesterol 25.3 mg/dL 18 LDL Cholesterol 50 mg/dL 19 Comp Metabolic Panel 05/08/2017 Sodium 141 mmol/L 133-145 Potassium 4.1 mmol/L 3.5-5.0 Chloride 103 mmol/L 101-111 Co2 Carbon Dioxide 31 mmol/L 22-32 Anion Gap 7 mmol/L 2-11 Glucose 122 mg/dL High 70-100 Blood Urea Nitrogen 21 mg/dL 6-24 Creatinine 1.03 mg/dL 0.67-1.17 BUN/Creatinine Ratio 20.4 High 8-20 Calcium 8.8 mg/dL 8.6-10.3 Total Protein 6.6 g/dL 6.4-8.9 Albumin 3.6 g/dL 3.2-5.2 Globulin 3.0 g/dL 2-4 Albumin/Globulin Ratio 1.2 1-3 Total Bilirubin 0.60 mg/dL 0.2-1.0 Alkaline Phosphatase 162 U/L High 34-104 Alt 12 U/L 7-52 Ast 17 U/L 13-39 Egfr Non- 71.8 >60 Egfr 92.4 >60 20 Lipid Panel - [facility] 05/08/2017 Creatine Kinase(CK) 29 U/L 10-223 21 Laboratory test finding 05/08/2017 Digoxin 1.6 ng/ml 0.8-2.0 22 Iron & Iron Binding Capacity 05/08/2017 Iron 26 g/dL Low 50-212 Unsaturated Iron Binding 309 g/dL Total Iron Binding Capacity 335 g/dL 250-450 % Iron Saturation 8 % Low 15-55 Laboratory test 03/09/2017 Rapid Influenza A B SEE RESULT BELOW 23 finding Antigen Rapid Influenza A & B 03/09/2017 Influenza A NEGATIVE Negative 24 Molecular Molecular Influenza B Molecular NEGATIVE Negative Laboratory test finding 12/18/2016 Digoxin 1.0 ng/ml 0.8-2.0 Magnesium 1.9 mg/dL 1.9-2.7 Basic Metabolic Panel 12/18/2016 Sodium 138 mmol/L 133-145 Potassium 4.6 mmol/L 3.5-5.0 Chloride 100 mmol/L Low 101-111 Co2 Carbon Dioxide 31 mmol/L 22-32 Anion Gap 7 mmol/L 2-11 Glucose 116 mg/dL High 70-100 Blood Urea Nitrogen 21 mg/dL 6-24 Creatinine 1.25 mg/dL High 0.67-1.17 BUN/Creatinine Ratio 16.8 8-20 Calcium 8.8 mg/dL 8.6-10.3 Egfr Non- 57.6 >60 Egfr 74.1 >60 25 Laboratory test finding 07/23/2016 B-Type Natriuretic Peptide BNP 86 pg/mL 26 Magnesium 1.7 mg/dL Low 1.9-2.7 TSH (Thyroid Stim Horm) 1.08 mcIU/mL 0.34-5.60 Free T4 (Free Thyroxine) 1.00 ng/dL 0.61-1.12 Lipid Panel - [facility] 07/23/2016 Creatine Kinase(CK) 29 U/L 10-223 Comp Metabolic Panel 07/23/2016 Sodium 140 mmol/L 133-145 Potassium 4.3 mmol/L 3.5-5.0 Chloride 104 mmol/L 101-111 Co2 Carbon Dioxide 26 mmol/L 22-32 Anion Gap 10 mmol/L 2-11 Glucose 114 mg/dL High 70-100 Blood Urea Nitrogen 21 mg/dL 6-24 Creatinine 1.11 mg/dL 0.67-1.17 BUN/Creatinine Ratio 18.9 8-20 Calcium 9.0 mg/dL 8.6-10.3 Total Protein 6.1 g/dL Low 6.4-8.9 Albumin 3.5 g/dL 3.2-5.2 Globulin 2.6 g/dL 2-4 Albumin/Globulin Ratio 1.3 1-3 Total Bilirubin 0.60 mg/dL 0.2-1.0 Alkaline Phosphatase 103 U/L 34-104 Alt 15 U/L 7-52 Ast 17 U/L 13-39 Egfr Non- 66.1 >60 Egfr 85.0 >60 27 Lipid Profile (Trig/Chol/HDL) 07/23/2016 Triglycerides 147 mg/dL 28 Cholesterol 172 mg/dL 29 HDL Cholesterol 45.8 mg/dL 30 LDL Cholesterol 97 mg/dL 31 CBC Auto Diff 07/23/2016 White Blood Count 8.3 10^3/uL 3.5-10.8 Red Blood Count 4.80 10^6/uL 4.0-5.4 Hemoglobin 12.3 g/dL Low 14.0-18.0 Hematocrit 39 % Low 42-52 Mean Corpuscular Volume 81 fL 80-94 Mean Corpuscular Hemoglobin 26 pg Low 27-31 Mean Corpuscular HGB Conc 32 g/dL 31-36 Red Cell Distribution Width 19 % High 10.5-15 Platelet Count 208 10^3/uL 150-450 Mean Platelet Volume 9 um3 7.4-10.4 Abs Neutrophils 4.4 10^3/uL 1.5-7.7 Abs Lymphocytes 2.5 10^3/uL 1.0-4.8 Abs Monocytes 1.0 10^3/uL High 0-0.8 Abs Eosinophils 0.3 10^3/uL 0-0.6 Abs Basophils 0.1 10^3/uL 0-0.2 Abs Nucleated RBC 0.01 10^3/uL Granulocyte % 53.2 % 38-83 Lymphocyte % 30.4 % 25-47 Monocyte % 11.6 % High 1-9 Eosinophil % 4.0 % 0-6 Basophil % 0.8 % 0-2 Nucleated Red Blood Cells % 0.1 Lipid Panel - [facility] 03/07/2016 Creatine Kinase(CK) 30 U/L 10-223 Comp Metabolic Panel 03/07/2016 Sodium 140 mmol/L 133-145 Potassium 3.9 mmol/L 3.5-5.0 Chloride 106 mmol/L 101-111 Co2 Carbon Dioxide 29 mmol/L 22-32 Anion Gap 5 mmol/L 2-11 Glucose 223 mg/dL High 70-100 Blood Urea Nitrogen 17 mg/dL 6-24 Creatinine 1.12 mg/dL 0.67-1.17 BUN/Creatinine Ratio 15.2 8-20 Total Protein 5.6 g/dL Low 6.4-8.9 Albumin 3.3 g/dL 3.2-5.2 Globulin 2.3 g/dL 2-4 Albumin/Globulin Ratio 1.4 1-3 Total Bilirubin 0.50 mg/dL 0.2-1.0 Alkaline Phosphatase 125 U/L High 34-104 Alt 25 U/L 7-52 Ast 16 U/L 13-39 Egfr Non- 65.6 >60 Egfr 84.4 >60 32 Lipid Profile (Trig/Chol/HDL) 03/07/2016 Triglycerides 173 mg/dL 33 Cholesterol 146 mg/dL 34 HDL Cholesterol 46.4 mg/dL 35 LDL Cholesterol 65 mg/dL 36 Laboratory test finding 03/07/2016 Free T4 (Free Thyroxine) 0.91 ng/dL 0.61-1.12 Magnesium 2.0 mg/dL 1.9-2.7 CBC Auto Diff 03/07/2016 White Blood Count 5.2 10^3/uL 3.5-10.8 Red Blood Count 5.57 10^6/uL High 4.0-5.4 Hemoglobin 12.0 g/dL Low 14.0-18.0 Hematocrit 39 % Low 42-52 Mean Corpuscular Volume 71 fL Low 80-94 37 Mean Corpuscular Hemoglobin 22 pg Low 27-31 Mean Corpuscular HGB Conc 31 g/dL 31-36 Red Cell Distribution Width 23 % High 10.5-15 38 Platelet Count 159 10^3/uL 150-450 Mean Platelet Volume 10 um3 7.4-10.4 Abs Neutrophils 3.3 10^3/uL 1.5-7.7 Abs Lymphocytes 0.8 10^3/uL Low 1.0-4.8 Abs Monocytes 0.8 10^3/uL 0-0.8 Abs Eosinophils 0.2 10^3/uL 0-0.6 Abs Basophils 0 10^3/uL 0-0.2 Abs Nucleated RBC 0.01 10^3/uL Granulocyte % 64.2 % 38-83 Lymphocyte % 15.1 % Low 25-47 Monocyte % 15.5 % High 1-9 Eosinophil % 4.4 % 0-6 Basophil % 0.8 % 0-2 Nucleated Red Blood Cells % 0.1 Laboratory test finding 03/07/2016 Calcium 8.5 mg/dL Low 8.6-10.3 TSH (Thyroid Stim Horm) 0.43 mcIU/mL 0.34-5.60 Comp Metabolic Panel 10/02/2015 Sodium 142 mmol/L 133-145 Potassium 4.2 mmol/L 3.5-5.0 Chloride 104 mmol/L 101-111 Co2 Carbon Dioxide 32 mmol/L 22-32 Anion Gap 6 mmol/L 2-11 Glucose 98 mg/dL 70-100 Blood Urea Nitrogen 18 mg/dL 6-24 Creatinine 1.07 mg/dL 0.67-1.17 BUN/Creatinine Ratio 16.8 8-20 Calcium 9.5 mg/dL 8.6-10.3 Total Protein 7.0 g/dL 6.4-8.9 Albumin 4.2 g/dL 3.2-5.2 Globulin 2.8 g/dL 2-4 Albumin/Globulin Ratio 1.5 1-3 Total Bilirubin 0.60 mg/dL 0.2-1.0 Alkaline Phosphatase 137 U/L High 34-104 Alt 27 U/L 7-52 Ast 25 U/L 13-39 Egfr Non- 69.1 >60 Egfr 88.9 >60 39 CBC Auto Diff 10/02/2015 White Blood Count 9.4 10^3/uL 3.5-10.8 Red Blood Count 5.46 10^6/uL High 4.0-5.4 Hemoglobin 11.3 g/dL Low 14.0-18.0 Hematocrit 37 % Low 42-52 Mean Corpuscular Volume 68 fL Low 80-94 40 Mean Corpuscular Hemoglobin 21 pg Low 27-31 Mean Corpuscular HGB Conc 30 g/dL Low 31-36 Red Cell Distribution Width 22 % High 10.5-15 Platelet Count 299 10^3/uL 150-450 Mean Platelet Volume 9 um3 7.4-10.4 Abs Neutrophils 5.6 10^3/uL 1.5-7.7 Abs Lymphocytes 2.5 10^3/uL 1.0-4.8 Abs Monocytes 1.0 10^3/uL High 0-0.8 Abs Eosinophils 0.2 10^3/uL 0-0.6 Abs Basophils 0 10^3/uL 0-0.2 Abs Nucleated RBC 0.01 10^3/uL Granulocyte % 59.4 % 38-83 Lymphocyte % 26.5 % 25-47 Monocyte % 11.1 % High 1-9 Eosinophil % 2.6 % 0-6 Basophil % 0.4 % 0-2 Nucleated Red Blood Cells % 0.1 Lipid Profile (Trig/Chol/HDL) 10/02/2015 Triglycerides 157 mg/dL 41 Cholesterol 173 mg/dL 42 HDL Cholesterol 50.2 mg/dL 43 LDL Cholesterol 91 mg/dL 44 Laboratory test finding 10/02/2015 Beta 2 Microglobulin 3.54 g/mL 45 Immunoglobulins Serum 10/02/2015 Immunoglobulin G 1200 mg/dL 767 - 1590 46 Quant Immunoglobulin M 173 mg/dL 37 - 286 Immunoglobulin A 40 mg/dL 61 - 356 Liborio Negron Torres/Lambda Free Light Chains 10/02/2015 Liborio Negron Torres Free Light Chain 2.91 mg/dL 47 Ser Lambda Free Light Chain 2.95 mg/dL 48 Liborio Negron Torres/Lambda Free Light Chain 0.9864 49 Protein Electrophoresis 10/02/2015 Total Protein(Pep) 7.4 g/dL 6.3 - 7.9 Albumin 3.5 g/dL 3.4-4.7 Alpha-1 Globulin 0.3 g/dL 0.1-0.3 Alpha-2 Globulin 1.2 g/dL 0.6-1.0 Beta Globulin 1.0 g/dL 0.7-1.2 Gamma Globulin 1.5 g/dL 0.6-1.6 Albumin/Globulin Ratio 0.91 M Carroll 0.7 g/dL Impression See Comment 50 Lipid Panel - [facility] 10/02/2015 Creatine Kinase(CK) 52 U/L 10-223 CBC Auto Diff 10/31/2014 White Blood Count 9.0 10^3/uL 4.8-10.8 Red Blood Count 3.64 10^6/uL Low 4.0-5.4 Hemoglobin 9.5 g/dL Low 14.0-18.0 Hematocrit 30 % Low 42-52 Mean Corpuscular Volume 83 fL 80-94 Mean Corpuscular Hemoglobin 26 pg Low 27-31 Mean Corpuscular HGB Conc 32 g/dL 31-36 Red Cell Distribution Width 17 % High 10.5-15 Platelet Count 295 10^3/uL 150-450 Mean Platelet Volume 8 um3 7.4-10.4 Abs Neutrophils 5.7 10^3/uL 1.5-7.7 Abs Lymphocytes 1.7 10^3/uL 1.0-4.8 Abs Monocytes 1.1 10^3/uL High 0-0.8 Abs Eosinophils 0.4 10^3/uL 0-0.6 Abs Basophils 0.1 10^3/uL 0-0.2 Abs Nucleated RBC 0.01 10^3/uL Granulocyte % 64.0 % 38-83 Lymphocyte % 18.4 % Low 25-47 Monocyte % 12.5 % High 1-9 Eosinophil % 4.2 % 0-6 Basophil % 0.9 % 0-2 Nucleated Red Blood Cells % 0.1 CBC No Diff 10/17/2014 White Blood Count 7.4 10^3/uL 4.8-10.8 Red Blood Count 4.30 10^6/uL 4.0-5.4 Hemoglobin 10.9 g/dL Low 14.0-18.0 Hematocrit 35 % Low 42-52 Mean Corpuscular Volume 82 fL 80-94 Mean Corpuscular Hemoglobin 25 pg Low 27-31 Mean Corpuscular HGB Conc 31 g/dL 31-36 Red Cell Distribution Width 17 % High 10.5-15 Platelet Count 235 10^3/uL 150-450 Mean Platelet Volume 9 um3 7.4-10.4 Inr/Protime 10/17/2014 Inr 1.00 0.78-1.07 Basic Metabolic Panel 10/17/2014 Sodium 136 mmol/L 133-145 Potassium 4.9 mmol/L 3.5-5.0 Chloride 103 mmol/L 101-111 Co2 Carbon Dioxide 28 mmol/L 22-32 Anion Gap 5 mmol/L 2-11 Glucose 74 mg/dL 70-100 Blood Urea Nitrogen 19 mg/dL 6-24 Creatinine 1.21 mg/dL High 0.67-1.17 BUN/Creatinine Ratio 15.7 8-20 Calcium 8.5 mg/dL Low 8.6-10.3 Egfr Non- 60.2 >60 Egfr 77.4 >60 51 Urinalysis Profile 10/17/2014 Urine Color Yellow Urine Appearance Clear Urine Specific [place] 1.018 1.010-1.030 Urine pH 7.0 5-9 Urine Urobilinogen Negative Negative Urine Ketones Negative Negative Urine Protein Negative Negative Urine Leukocytes Negative Negative Urine Blood Negative Negative Urine Nitrite Negative Negative Urine Bilirubin Negative Negative Urine Glucose Negative Negative Type & Screen 10/17/2014 Patient Blood Type O Positive Antibody Screen NEGATIVE Basic Metabolic Panel 09/01/2014 Sodium 137 mmol/L 133-145 Potassium 4.9 mmol/L 3.5-5.0 Chloride 105 mmol/L 101-111 Co2 Carbon Dioxide 27 mmol/L 22-32 Anion Gap 5 mmol/L 2-11 Glucose 96 mg/dL 70-100 Blood Urea Nitrogen 32 mg/dL High 6-24 Creatinine 1.60 mg/dL High 0.67-1.17 BUN/Creatinine Ratio 20.0 8-20 Calcium 8.6 mg/dL 8.6-10.3 Egfr Non- 43.6 >60 Egfr 56.1 >60 52 Inr/Protime 09/01/2014 Inr 1.01 0.78-1.07 CBC Auto Diff 09/01/2014 White Blood Count 6.7 10^3/uL 4.8-10.8 Red Blood Count 4.25 10^6/uL 4.0-5.4 Hemoglobin 11.3 g/dL Low 14.0-18.0 Hematocrit 36 % Low 42-52 Mean Corpuscular Volume 84 fL 80-94 Mean Corpuscular Hemoglobin 27 pg 27-31 Mean Corpuscular HGB Conc 32 g/dL 31-36 Red Cell Distribution Width 16 % High 10.5-15 Platelet Count 189 10^3/uL 150-450 Mean Platelet Volume 9 um3 7.4-10.4 Abs Neutrophils 3.8 10^3/uL 1.5-7.7 Abs Lymphocytes 1.5 10^3/uL 1.0-4.8 Abs Monocytes 0.9 10^3/uL High 0-0.8 Abs Eosinophils 0.4 10^3/uL 0-0.6 Abs Basophils 0.1 10^3/uL 0-0.2 Abs Nucleated RBC 0 10^3/uL Granulocyte % 56.8 % 38-83 Lymphocyte % 22.0 % Low 25-47 Monocyte % 13.9 % High 1-9 Eosinophil % 5.9 % 0-6 Basophil % 1.4 % 0-2 Nucleated Red Blood Cells % 0 Pre Cath Panel 09/01/2014 Activated Partial Thrombo Time 33.8 seconds 26.0-36.3 CBC Auto Diff 08/29/2014 White Blood Count 6.3 10^3/uL 4.8-10.8 Red Blood Count 4.37 10^6/uL 4.0-5.4 Hemoglobin 11.8 g/dL Low 14.0-18.0 Hematocrit 37 % Low 42-52 Mean Corpuscular Volume 83 fL 80-94 Mean Corpuscular Hemoglobin 27 pg 27-31 Mean Corpuscular HGB Conc 32 g/dL 31-36 Red Cell Distribution Width 16 % High 10.5-15 Platelet Count 224 10^3/uL 150-450 Mean Platelet Volume 9 um3 7.4-10.4 Abs Neutrophils 3.5 10^3/uL 1.5-7.7 Abs Lymphocytes 1.6 10^3/uL 1.0-4.8 Abs Monocytes 0.8 10^3/uL 0-0.8 Abs Eosinophils 0.4 10^3/uL 0-0.6 Abs Basophils 0.1 10^3/uL 0-0.2 Abs Nucleated RBC 0 10^3/uL Granulocyte % 55.4 % 38-83 Lymphocyte % 24.7 % Low 25-47 Monocyte % 12.0 % High 1-9 Eosinophil % 6.6 % High 0-6 Basophil % 1.3 % 0-2 Nucleated Red Blood Cells % 0.1 Comp Metabolic Panel 08/29/2014 Sodium 138 mmol/L 133-145 Potassium 4.7 mmol/L 3.5-5.0 Chloride 105 mmol/L 101-111 Co2 Carbon Dioxide 26 mmol/L 22-32 Anion Gap 7 mmol/L 2-11 Glucose 123 mg/dL High 70-100 Blood Urea Nitrogen 20 mg/dL 6-24 Creatinine 1.10 mg/dL 0.67-1.17 BUN/Creatinine Ratio 18.2 8-20 Calcium 8.4 mg/dL Low 8.6-10.3 Total Protein 6.2 g/dL Low 6.4-8.9 Albumin 3.9 g/dL 3.2-5.2 Globulin 2.3 g/dL 2-4 Albumin/Globulin Ratio 1.7 1-3 Total Bilirubin 0.40 mg/dL 0.2-1.0 Alkaline Phosphatase 105 U/L High 34-104 Alt 9 U/L 7-52 Ast 12 U/L Low 13-39 Egfr Non- 67.2 >60 Egfr 86.4 >60 53 Protein Electrophoresis 08/22/2014 Total Protein(Pep) 6.7 g/dL 6.3 - 7.9 Albumin 3.4 g/dL 3.4-4.7 Alpha-1 Globulin 0.3 g/dL 0.1-0.3 Alpha-2 Globulin 1.1 g/dL 0.6-1.0 Beta Globulin 0.9 g/dL 0.7-1.2 Gamma Globulin 1.0 g/dL 0.6-1.6 Albumin/Globulin Ratio 1.00 Impression See Comment 54 Liborio Negron Torres/Lambda Free Light Chains 08/22/2014 Liborio Negron Torres Free Light Chain 1.66 mg/dL 55 Ser Lambda Free Light Chain 2.02 mg/dL 56 Liborio Negron Torres/Lambda Free Light Chain 0.8218 57 Immunoglobulins Serum Quant 08/22/2014 Immunoglobulin G 910 mg/dL 767 - 1590 58 Immunoglobulin M 101 mg/dL 37 - 286 Immunoglobulin A 29 mg/dL 61 - 356 Comp Metabolic Panel 08/22/2014 Sodium 136 mmol/L 133-145 Potassium 4.7 mmol/L 3.5-5.0 Chloride 103 mmol/L 101-111 Co2 Carbon Dioxide 29 mmol/L 22-32 Anion Gap 4 mmol/L 2-11 Glucose 62 mg/dL Low 70-100 Blood Urea Nitrogen 28 mg/dL High 6-24 Creatinine 1.28 mg/dL High 0.67-1.17 BUN/Creatinine Ratio 21.9 High 8-20 Calcium 8.6 mg/dL 8.6-10.3 Total Protein 6.4 g/dL 6.4-8.9 Albumin 4.0 g/dL 3.2-5.2 Globulin 2.4 g/dL 2-4 Albumin/Globulin Ratio 1.7 1-3 Total Bilirubin 0.40 mg/dL 0.2-1.0 Alkaline Phosphatase 110 U/L High 34-104 Alt 8 U/L 7-52 Ast 15 U/L 13-39 Egfr Non- 56.4 >60 Egfr 72.5 >60 59 CBC Auto Diff 08/22/2014 White Blood Count 5.6 10^3/uL 4.8-10.8 Red Blood Count 4.18 10^6/uL 4.0-5.4 Hemoglobin 11.2 g/dL Low 14.0-18.0 Hematocrit 35 % Low 42-52 Mean Corpuscular Volume 85 fL 80-94 Mean Corpuscular Hemoglobin 27 pg 27-31 Mean Corpuscular HGB Conc 32 g/dL 31-36 Red Cell Distribution Width 16 % High 10.5-15 Platelet Count 218 10^3/uL 150-450 Mean Platelet Volume 9 um3 7.4-10.4 Abs Neutrophils 3.2 10^3/uL 1.5-7.7 Abs Lymphocytes 1.2 10^3/uL 1.0-4.8 Abs Monocytes 0.8 10^3/uL 0-0.8 Abs Eosinophils 0.3 10^3/uL 0-0.6 Abs Basophils 0.1 10^3/uL 0-0.2 Abs Nucleated RBC 0 10^3/uL Granulocyte % 57.5 % 38-83 Lymphocyte % 21.9 % Low 25-47 Monocyte % 13.5 % High 1-9 Eosinophil % 5.7 % 0-6 Basophil % 1.4 % 0-2 Nucleated Red Blood Cells % 0.1 CBC Auto Diff 08/15/2014 White Blood Count 5.0 10^3/uL 4.8-10.8 Red Blood Count 4.07 10^6/uL 4.0-5.4 Hemoglobin 11.0 g/dL Low 14.0-18.0 Hematocrit 34 % Low 42-52 Mean Corpuscular Volume 85 fL 80-94 Mean Corpuscular Hemoglobin 27 pg 27-31 Mean Corpuscular HGB Conc 32 g/dL 31-36 Red Cell Distribution Width 16 % High 10.5-15 Platelet Count 155 10^3/uL 150-450 Mean Platelet Volume 9 um3 7.4-10.4 Abs Neutrophils 2.3 10^3/uL 1.5-7.7 Abs Lymphocytes 1.6 10^3/uL 1.0-4.8 Abs Monocytes 0.7 10^3/uL 0-0.8 Abs Eosinophils 0.3 10^3/uL 0-0.6 Abs Basophils 0.1 10^3/uL 0-0.2 Abs Nucleated RBC 0 10^3/uL Granulocyte % 46.4 % 38-83 Lymphocyte % 31.3 % 25-47 Monocyte % 14.2 % High 1-9 Eosinophil % 6.6 % High 0-6 Basophil % 1.5 % 0-2 Nucleated Red Blood Cells % 0.1 Comp Metabolic Panel 08/15/2014 Sodium 136 mmol/L 133-145 Potassium 5.1 mmol/L High 3.5-5.0 Chloride 104 mmol/L 101-111 Co2 Carbon Dioxide 27 mmol/L 22-32 Anion Gap 5 mmol/L 2-11 Glucose 141 mg/dL High 70-100 Blood Urea Nitrogen 20 mg/dL 6-24 Creatinine 1.14 mg/dL 0.67-1.17 BUN/Creatinine Ratio 17.5 8-20 Calcium 8.9 mg/dL 8.6-10.3 Total Protein 6.3 g/dL Low 6.4-8.9 Albumin 4.0 g/dL 3.2-5.2 Globulin 2.3 g/dL 2-4 Albumin/Globulin Ratio 1.7 1-3 Total Bilirubin 0.30 mg/dL 0.2-1.0 Alkaline Phosphatase 130 U/L High 34-104 Alt 10 U/L 7-52 Ast 15 U/L 13-39 Egfr Non- 64.5 >60 Egfr 82.9 >60 60 CBC Auto Diff 08/08/2014 White Blood Count 5.7 10^3/uL 4.8-10.8 Red Blood Count 4.18 10^6/uL 4.0-5.4 Hemoglobin 11.3 g/dL Low 14.0-18.0 Hematocrit 36 % Low 42-52 Mean Corpuscular Volume 86 fL 80-94 Mean Corpuscular Hemoglobin 27 pg 27-31 Mean Corpuscular HGB Conc 32 g/dL 31-36 Red Cell Distribution Width 16 % High 10.5-15 Platelet Count 153 10^3/uL 150-450 Mean Platelet Volume 9 um3 7.4-10.4 Abs Neutrophils 3.1 10^3/uL 1.5-7.7 Abs Lymphocytes 1.6 10^3/uL 1.0-4.8 Abs Monocytes 0.7 10^3/uL 0-0.8 Abs Eosinophils 0.2 10^3/uL 0-0.6 Abs Basophils 0.1 10^3/uL 0-0.2 Abs Nucleated RBC 0 10^3/uL Granulocyte % 54.5 % 38-83 Lymphocyte % 28.6 % 25-47 Monocyte % 12.3 % High 1-9 Eosinophil % 3.3 % 0-6 Basophil % 1.3 % 0-2 Nucleated Red Blood Cells % 0 Comp Metabolic Panel 08/08/2014 Sodium 137 mmol/L 133-145 Potassium 4.6 mmol/L 3.5-5.0 Chloride 104 mmol/L 101-111 Co2 Carbon Dioxide 27 mmol/L 22-32 Anion Gap 6 mmol/L 2-11 Glucose 115 mg/dL High 70-100 Blood Urea Nitrogen 26 mg/dL High 6-24 Creatinine 1.25 mg/dL High 0.67-1.17 BUN/Creatinine Ratio 20.8 High 8-20 Calcium 8.2 mg/dL Low 8.6-10.3 Total Protein 6.3 g/dL Low 6.4-8.9 Albumin 4.0 g/dL 3.2-5.2 Globulin 2.3 g/dL 2-4 Albumin/Globulin Ratio 1.7 1-3 Total Bilirubin 0.40 mg/dL 0.2-1.0 Alkaline Phosphatase 105 U/L High 34-104 Alt 11 U/L 7-52 Ast 15 U/L 13-39 Egfr Non- 58.0 >60 Egfr 74.6 >60 61 Arterial Blood Gas 06/24/2014 PH Arterial 7.17 Low 7.35-7.45 62 Pco2 Arterial 61 mmHg High 35-45 Po2 Arterial 162 mmHg High 80-100 O2 Saturation Arterial 97.3 % 95-98 Base Excess Arterial -6.6 Low -2.0-2.0 63 Hco3 Arterial 19.8 mmol/L 19-31 Urinalysis Profile 06/24/2014 Urine Color Yellow Urine Appearance Cloudy Urine Specific [place] 1.012 1.010-1.030 Urine pH 5.0 5-9 Urine Urobilinogen Negative Negative Urine Ketones Trace Negative Urine Protein 2+(100 mg/dL) Negative Urine Leukocytes 3+ Negative Urine Blood 1+ Negative Urine Nitrite Negative Negative Urine Bilirubin Negative Negative Urine Glucose Negative Negative Urine White Blood Cell 2+(11-20/hpf) Absent Urine Red Blood Cell Trace(0-2/hpf) Absent Urine Bacteria 1+ Absent Urine Squamous Epithelial Cell Present Absent Urine Hyaline Casts Present Absent Urine Amorphous Crystals Present Absent Urine Yeast Present Absent CBC Auto Diff 06/24/2014 White Blood Count 11.1 10^3/uL High 4.8-10.8 Red Blood Count 4.20 10^6/uL 4.0-5.4 Hemoglobin 11.8 g/dL Low 14.0-18.0 Hematocrit 37 % Low 42-52 Mean Corpuscular Volume 88 fL 80-94 Mean Corpuscular Hemoglobin 28 pg 27-31 Mean Corpuscular HGB Conc 32 g/dL 31-36 Red Cell Distribution Width 16 % High 10.5-15 Platelet Count 190 10^3/uL 150-450 Mean Platelet Volume 9 um3 7.4-10.4 Abs Neutrophils 6.7 10^3/uL 1.5-7.7 Abs Lymphocytes 2.7 10^3/uL 1.0-4.8 Abs Monocytes 1.5 10^3/uL High 0-0.8 Abs Eosinophils 0.1 10^3/uL 0-0.6 Abs Basophils 0.1 10^3/uL 0-0.2 Abs Nucleated RBC 0 10^3/uL Granulocyte % 60.1 % 38-83 Lymphocyte % 24.8 % Low 25-47 Monocyte % 13.6 % High 1-9 Eosinophil % 0.5 % 0-6 Basophil % 1.0 % 0-2 Nucleated Red Blood Cells % 0 Inr/Protime 06/24/2014 Inr 1.09 High 0.78-1.07 64 Laboratory test finding 06/24/2014 Activated Partial 31.4 seconds 24.0- 36.1 Thrombo Time D Dimer Quantitative 514 ng/mL High Less Than 230 65 Lactic Acid 2.1 mmol/L 0.5-2.2 Comp Metabolic Panel 06/24/2014 Sodium 137 mmol/L 133-145 Potassium 4.4 mmol/L 3.5-5.0 Chloride 104 mmol/L 101-111 Co2 Carbon Dioxide 28 mmol/L 22-32 Anion Gap 5 mmol/L 2-11 Glucose 155 mg/dL High 70-100 Blood Urea Nitrogen 18 mg/dL 6-24 Creatinine 1.12 mg/dL 0.67-1.17 BUN/Creatinine Ratio 16.1 8-20 Calcium 8.8 mg/dL 8.6-10.3 Total Protein 6.7 g/dL 6.4-8.9 Albumin 4.0 g/dL 3.2-5.2 Globulin 2.7 g/dL 2-4 Albumin/Globulin Ratio 1.5 1-3 Total Bilirubin 0.60 mg/dL 0.2-1.0 Alkaline Phosphatase 105 U/L High 34-104 Alt 12 U/L 7-52 Ast 22 U/L 13-39 Egfr Non- 65.8 >60 Egfr 84.6 >60 66 Laboratory test finding 06/24/2014 Creatine Kinase 150 U/L 10-223 CKMB 06/24/2014 CKMB ng/mL 2.1 ng/mL 0.6-6.3 Laboratory test finding 06/24/2014 Troponin I 0.05 ng/mL High <0.03 67 C Reactive Protein 70.45 mg/L High < 5.00 68 B Type Natriuretic Peptide 384 pg/mL 69 Laboratory test finding 06/13/2014 Magnesium 1.8 mg/dL Low 1.9-2.7 70, 71 CBC Auto Diff 06/06/2014 White Blood Count 5.0 10^3/uL 4.8-10.8 Red Blood Count 4.11 10^6/uL 4.0-5.4 Hemoglobin 11.6 g/dL Low 14.0-18.0 Hematocrit 36 % Low 42-52 Mean Corpuscular Volume 88 fL 80-94 Mean Corpuscular Hemoglobin 28 pg 27-31 Mean Corpuscular HGB Conc 32 g/dL 31-36 Red Cell Distribution Width 17 % High 10.5-15 Platelet Count 195 10^3/uL 150-450 Mean Platelet Volume 9 um3 7.4-10.4 Abs Neutrophils 2.6 10^3/uL 1.5-7.7 Abs Lymphocytes 1.2 10^3/uL 1.0-4.8 Abs Monocytes 0.8 10^3/uL 0-0.8 Abs Eosinophils 0.4 10^3/uL 0-0.6 Abs Basophils 0.1 10^3/uL 0-0.2 Abs Nucleated RBC 0 10^3/uL Granulocyte % 52.6 % 38-83 Lymphocyte % 23.9 % Low 25-47 Monocyte % 15.0 % High 1-9 Eosinophil % 7.2 % High 0-6 Basophil % 1.3 % 0-2 Nucleated Red Blood Cells % 0.1 Comp Metabolic Panel 06/06/2014 Sodium 140 mmol/L 133-145 Potassium 4.2 mmol/L 3.5-5.0 Chloride 107 mmol/L 101-111 Co2 Carbon Dioxide 28 mmol/L 22-32 Anion Gap 5 mmol/L 2-11 Glucose 138 mg/dL High 70-100 Blood Urea Nitrogen 19 mg/dL 6-24 Creatinine 0.98 mg/dL 0.67-1.17 BUN/Creatinine Ratio 19.4 8-20 Calcium 8.7 mg/dL 8.6-10.3 Total Protein 6.0 g/dL Low 6.4-8.9 Albumin 3.9 g/dL 3.2-5.2 Globulin 2.1 g/dL 2-4 Albumin/Globulin Ratio 1.9 1-3 Total Bilirubin 0.40 mg/dL 0.2-1.0 Alkaline Phosphatase 120 U/L High 34-104 Alt 7 U/L 7-52 Ast 11 U/L Low 13-39 Egfr Non- 76.8 >60 Egfr 98.7 >60 72 CBC Auto Diff 05/02/2014 White Blood Count 4.1 10^3/uL Low 4.8-10.8 Red Blood Count 3.72 10^6/uL Low 4.0-5.4 Hemoglobin 11.0 g/dL Low 14.0-18.0 Hematocrit 34 % Low 42-52 Mean Corpuscular Volume 90 fL 80-94 Mean Corpuscular Hemoglobin 30 pg 27-31 Mean Corpuscular HGB Conc 33 g/dL 31-36 Red Cell Distribution Width 16 % High 10.5-15 Platelet Count 169 10^3/uL 150-450 Mean Platelet Volume 10 um3 7.4-10.4 Abs Neutrophils 2.2 10^3/uL 1.5-7.7 Abs Lymphocytes 1.0 10^3/uL 1.0-4.8 Abs Monocytes 0.6 10^3/uL 0-0.8 Abs Eosinophils 0.3 10^3/uL 0-0.6 Abs Basophils 0 10^3/uL 0-0.2 Abs Nucleated RBC 0 10^3/uL Granulocyte % 53.0 % 38-83 Lymphocyte % 25.2 % 25-47 Monocyte % 13.6 % High 1-9 Eosinophil % 7.5 % High 0-6 Basophil % 0.7 % 0-2 Nucleated Red Blood Cells % 0.1 Comp Metabolic Panel 05/02/2014 Sodium 143 mmol/L 133-145 Potassium 4.0 mmol/L 3.5-5.0 Chloride 111 mmol/L 101-111 Co2 Carbon Dioxide 28 mmol/L 22-32 Anion Gap 4 mmol/L 2-11 Glucose 183 mg/dL High 70-100 Blood Urea Nitrogen 23 mg/dL 6-24 Creatinine 0.98 mg/dL 0.67-1.17 BUN/Creatinine Ratio 23.5 High 8-20 Calcium 8.5 mg/dL Low 8.6-10.3 Total Protein 5.8 g/dL Low 6.4-8.9 Albumin 3.6 g/dL 3.2-5.2 Globulin 2.2 g/dL 2-4 Albumin/Globulin Ratio 1.6 1-3 Total Bilirubin 0.30 mg/dL 0.2-1.0 Alkaline Phosphatase 128 U/L High 34-104 Alt 7 U/L 7-52 Ast 11 U/L Low 13-39 Egfr Non- 76.8 >60 Egfr 98.7 >60 73 Laboratory test finding 05/02/2014 Magnesium 1.9 mg/dL 1.9-2.7 Laboratory test finding 04/11/2014 Magnesium 1.8 mg/dL Low 1.9-2.7 Comp Metabolic Panel 04/11/2014 Sodium 143 mmol/L 133-145 Potassium 4.4 mmol/L 3.5-5.0 74 Chloride 106 mmol/L 101-111 Co2 Carbon Dioxide 32 mmol/L 22-32 Anion Gap 5 mmol/L 2-11 Glucose 117 mg/dL High 70-100 Blood Urea Nitrogen 19 mg/dL 6-24 Creatinine 1.09 mg/dL 0.67-1.17 BUN/Creatinine Ratio 17.4 8-20 Calcium 8.7 mg/dL 8.6-10.3 Total Protein 5.8 g/dL Low 6.4-8.9 Albumin 3.5 g/dL 3.2-5.2 Globulin 2.3 g/dL 2-4 Albumin/Globulin Ratio 1.5 1-3 Total Bilirubin 0.40 mg/dL 0.2-1.0 Alkaline Phosphatase 114 U/L High 34-104 Alt 7 U/L 7-52 Ast 13 U/L 13-39 Egfr Non- 68.1 >60 Egfr 87.6 >60 75 CBC Auto Diff 04/11/2014 White Blood Count 5.7 10^3/uL 4.8-10.8 Red Blood Count 3.74 10^6/uL Low 4.0-5.4 Hemoglobin 11.0 g/dL Low 14.0-18.0 Hematocrit 34 % Low 42-52 Mean Corpuscular Volume 91 fL 80-94 Mean Corpuscular Hemoglobin 30 pg 27-31 Mean Corpuscular HGB Conc 33 g/dL 31-36 Red Cell Distribution Width 15 % 10.5-15 Platelet Count 200 10^3/uL 150-450 Mean Platelet Volume 9 um3 7.4-10.4 Abs Neutrophils 3.2 10^3/uL 1.5-7.7 Abs Lymphocytes 1.4 10^3/uL 1.0-4.8 Abs Monocytes 0.6 10^3/uL 0-0.8 Abs Eosinophils 0.4 10^3/uL 0-0.6 Abs Basophils 0.1 10^3/uL 0-0.2 Abs Nucleated RBC 0 10^3/uL Granulocyte % 56.0 % 38-83 Lymphocyte % 24.2 % Low 25-47 Monocyte % 11.3 % High 1-9 Eosinophil % 6.1 % High 0-6 Basophil % 2.4 % High 0-2 Nucleated Red Blood Cells % 0 CBC Auto Diff 03/28/2014 White Blood Count 7.3 10^3/uL 4.8-10.8 Red Blood Count 3.45 10^6/uL Low 4.0-5.4 Hemoglobin 10.4 g/dL Low 14.0-18.0 Hematocrit 33 % Low 42-52 Mean Corpuscular Volume 94 fL 80-94 Mean Corpuscular Hemoglobin 30 pg 27-31 Mean Corpuscular HGB Conc 32 g/dL 31-36 Red Cell Distribution Width 15 % 10.5-15 Platelet Count 192 10^3/uL 150-450 Mean Platelet Volume 9 um3 7.4-10.4 Abs Neutrophils 5.2 10^3/uL 1.5-7.7 Abs Lymphocytes 1.1 10^3/uL 1.0-4.8 Abs Monocytes 0.7 10^3/uL 0-0.8 Abs Eosinophils 0.2 10^3/uL 0-0.6 Abs Basophils 0.1 10^3/uL 0-0.2 Abs Nucleated RBC 0 10^3/uL Granulocyte % 71.1 % 38-83 Lymphocyte % 15.5 % Low 25-47 Monocyte % 10.1 % High 1-9 Eosinophil % 2.2 % 0-6 Basophil % 1.1 % 0-2 Nucleated Red Blood Cells % 0 Comp Metabolic Panel 03/28/2014 Sodium 141 mmol/L 133-145 Potassium 4.3 mmol/L 3.5-5.0 76 Chloride 108 mmol/L 101-111 Co2 Carbon Dioxide 28 mmol/L 22-32 Anion Gap 5 mmol/L 2-11 Glucose 132 mg/dL High 70-100 Blood Urea Nitrogen 15 mg/dL 6-24 Creatinine 0.90 mg/dL 0.67-1.17 BUN/Creatinine Ratio 16.7 8-20 Calcium 8.7 mg/dL 8.6-10.3 Total Protein 5.5 g/dL Low 6.4-8.9 Albumin 3.4 g/dL 3.2-5.2 Globulin 2.1 g/dL 2-4 Albumin/Globulin Ratio 1.6 1-3 Total Bilirubin 0.40 mg/dL 0.2-1.0 Alkaline Phosphatase 130 U/L High 34-104 Alt 8 U/L 7-52 Ast 13 U/L 13-39 Egfr Non- 85.0 >60 Egfr 109.3 >60 77 Laboratory test finding 03/28/2014 Magnesium 1.7 mg/dL Low 1.9-2.7 CBC Auto Diff 03/21/2014 White Blood Count 4.0 10^3/uL Low 4.8-10.8 Red Blood Count 3.44 10^6/uL Low 4.0-5.4 Hemoglobin 10.5 g/dL Low 14.0-18.0 Hematocrit 32 % Low 42-52 Mean Corpuscular Volume 93 fL 80-94 Mean Corpuscular Hemoglobin 30 pg 27-31 Mean Corpuscular HGB Conc 33 g/dL 31-36 Red Cell Distribution Width 15 % 10.5-15 Platelet Count 217 10^3/uL 150-450 Mean Platelet Volume 9 um3 7.4-10.4 Abs Neutrophils 2.2 10^3/uL 1.5-7.7 Abs Lymphocytes 1.0 10^3/uL 1.0-4.8 Abs Monocytes 0.5 10^3/uL 0-0.8 Abs Eosinophils 0.1 10^3/uL 0-0.6 Abs Basophils 0 10^3/uL 0-0.2 Abs Nucleated RBC 0 10^3/uL Granulocyte % 56.6 % 38-83 Lymphocyte % 25.5 % 25-47 Monocyte % 13.6 % High 1-9 Eosinophil % 3.1 % 0-6 Basophil % 1.2 % 0-2 Nucleated Red Blood Cells % 0.1 Comp Metabolic Panel 03/21/2014 Sodium 141 mmol/L 133-145 Potassium 4.3 mmol/L 3.5-5.0 78 Chloride 109 mmol/L 101-111 Co2 Carbon Dioxide 27 mmol/L 22-32 Anion Gap 5 mmol/L 2-11 Glucose 122 mg/dL High 70-100 Blood Urea Nitrogen 17 mg/dL 6-24 Creatinine 0.83 mg/dL 0.67-1.17 BUN/Creatinine Ratio 20.5 High 8-20 Calcium 8.5 mg/dL Low 8.6-10.3 Total Protein 5.6 g/dL Low 6.4-8.9 Albumin 3.3 g/dL 3.2-5.2 Globulin 2.3 g/dL 2-4 Albumin/Globulin Ratio 1.4 1-3 Total Bilirubin 0.40 mg/dL 0.2-1.0 Alkaline Phosphatase 140 U/L High 34-104 Alt 7 U/L 7-52 Ast 11 U/L Low 13-39 Egfr Non- 93.3 >60 Egfr 120.0 >60 79 Laboratory test finding 03/21/2014 Immunoglobulin G 689 mg/dL 767 - 1590 80 Immunoglobulin M 79 mg/dL 37 - 286 81 Immunoglobulin A 20 mg/dL 61 - 356 82 Liborio Negron Torres/Lambda Free Light Chains 03/21/2014 Liborio Negron Torres Free Light Chain 0.9110 mg/ dL 83 Ser Lambda Free Light Chain 1.22 mg/dL 84 Liborio Negron Torres/Lambda Free Light Chain 0.7467 85 Protein Electrophoresis 03/21/2014 Total Protein(Pep) 5.8 g/dL 6.3 - 7.9 Albumin 2.9 g/dL 3.4-4.7 Alpha-1 Globulin 0.4 g/dL 0.1-0.3 Alpha-2 Globulin 1.0 g/dL 0.6-1.0 Beta Globulin 0.8 g/dL 0.7-1.2 Gamma Globulin 0.7 g/dL 0.6-1.6 Albumin/Globulin Ratio 0.99 M Carroll 0.3 g/dL Impression See Comment 86 CBC Auto Diff 03/14/2014 White Blood Count 6.1 10^3/uL 4.8-10.8 Red Blood Count 3.15 10^6/uL Low 4.0-5.4 Hemoglobin 9.7 g/dL Low 14.0-18.0 Hematocrit 30 % Low 42-52 Mean Corpuscular Volume 94 fL 80-94 Mean Corpuscular Hemoglobin 31 pg 27-31 Mean Corpuscular HGB Conc 33 g/dL 31-36 Red Cell Distribution Width 14 % 10.5-15 Platelet Count 302 10^3/uL 150-450 Mean Platelet Volume 8 um3 7.4-10.4 Abs Neutrophils 3.6 10^3/uL 1.5-7.7 Abs Lymphocytes 1.4 10^3/uL 1.0-4.8 Abs Monocytes 0.8 10^3/uL 0-0.8 Abs Eosinophils 0.2 10^3/uL 0-0.6 Abs Basophils 0.1 10^3/uL 0-0.2 Abs Nucleated RBC 0 10^3/uL Granulocyte % 59.0 % 38-83 Lymphocyte % 23.1 % Low 25-47 Monocyte % 13.8 % High 1-9 Eosinophil % 3.0 % 0-6 Basophil % 1.1 % 0-2 Nucleated Red Blood Cells % 0.1 Comp Metabolic Panel 03/14/2014 Sodium 138 mmol/L 133-145 Potassium 4.2 mmol/L 3.5-5.0 87 Chloride 105 mmol/L 101-111 Co2 Carbon Dioxide 26 mmol/L 22-32 Anion Gap 7 mmol/L 2-11 Glucose 69 mg/dL Low 70-100 Blood Urea Nitrogen 19 mg/dL 6-24 Creatinine 0.97 mg/dL 0.67-1.17 BUN/Creatinine Ratio 19.6 8-20 Calcium 8.7 mg/dL 8.6-10.3 Total Protein 5.6 g/dL Low 6.4-8.9 Albumin 3.5 g/dL 3.2-5.2 Globulin 2.1 g/dL 2-4 Albumin/Globulin Ratio 1.7 1-3 Total Bilirubin 0.40 mg/dL 0.2-1.0 Alkaline Phosphatase 125 U/L High 34-104 Alt 10 U/L 7-52 Ast 17 U/L 13-39 Egfr Non- 77.9 >60 Egfr 100.2 >60 88 Laboratory test finding 03/14/2014 Magnesium 1.5 mg/dL Low 1.9-2.7 CBC Auto Diff 03/07/2014 White Blood Count 4.1 10^3/uL Low 4.8-10.8 Red Blood Count 3.28 10^6/uL Low 4.0-5.4 Hemoglobin 10.3 g/dL Low 14.0-18.0 Hematocrit 31 % Low 42-52 Mean Corpuscular Volume 95 fL High 80-94 Mean Corpuscular Hemoglobin 31 pg 27-31 Mean Corpuscular HGB Conc 33 g/dL 31-36 Red Cell Distribution Width 15 % 10.5-15 Platelet Count 176 10^3/uL 150-450 Mean Platelet Volume 8 um3 7.4-10.4 Abs Neutrophils 2.4 10^3/uL 1.5-7.7 Abs Lymphocytes 1.0 10^3/uL 1.0-4.8 Abs Monocytes 0.6 10^3/uL 0-0.8 Abs Eosinophils 0.1 10^3/uL 0-0.6 Abs Basophils 0 10^3/uL 0-0.2 Abs Nucleated RBC 0.01 10^3/uL Granulocyte % 58.1 % 38-83 Lymphocyte % 24.1 % Low 25-47 Monocyte % 13.9 % High 1-9 Eosinophil % 3.0 % 0-6 Basophil % 0.9 % 0-2 Nucleated Red Blood Cells % 0.3 Comp Metabolic Panel 03/07/2014 Sodium 138 mmol/L 133-145 Potassium 4.3 mmol/L 3.7-5.6 Chloride 104 mmol/L 101-111 Co2 Carbon Dioxide 28 mmol/L 22-32 Anion Gap 6 mmol/L 2-11 Glucose 85 mg/dL 70-100 Blood Urea Nitrogen 19 mg/dL 6-24 Creatinine 1.05 mg/dL 0.67-1.17 BUN/Creatinine Ratio 18.1 8-20 Calcium 8.7 mg/dL 8.6-10.3 Total Protein 5.6 g/dL Low 6.4-8.9 Albumin 3.5 g/dL 3.2-5.2 Globulin 2.1 g/dL 2-4 Albumin/Globulin Ratio 1.7 1-3 Total Bilirubin 0.60 mg/dL 0.2-1.0 Alkaline Phosphatase 143 U/L High 34-104 Alt 11 U/L 7-52 Ast 14 U/L 13-39 Egfr Non- 71.1 >60 Egfr 91.5 >60 89 Laboratory test finding 03/07/2014 Magnesium 1.8 mg/dL Low 1.9-2.7 CBC Auto Diff 02/28/2014 White Blood Count 4.7 10^3/uL Low 4.8-10.8 Red Blood Count 3.20 10^6/uL Low 4.0-5.4 Hemoglobin 10.0 g/dL Low 14.0-18.0 Hematocrit 30 % Low 42-52 Mean Corpuscular Volume 95 fL High 80-94 Mean Corpuscular Hemoglobin 31 pg 27-31 Mean Corpuscular HGB Conc 33 g/dL 31-36 Red Cell Distribution Width 16 % High 10.5-15 Platelet Count 155 10^3/uL 150-450 Mean Platelet Volume 8 um3 7.4-10.4 Abs Neutrophils 2.7 10^3/uL 1.5-7.7 Abs Lymphocytes 1.1 10^3/uL 1.0-4.8 Abs Monocytes 0.6 10^3/uL 0-0.8 Abs Eosinophils 0.1 10^3/uL 0-0.6 Abs Basophils 0.1 10^3/uL 0-0.2 Abs Nucleated RBC 0.01 10^3/uL Granulocyte % 58.7 % 38-83 Lymphocyte % 23.8 % Low 25-47 Monocyte % 13.5 % High 1-9 Eosinophil % 2.7 % 0-6 Basophil % 1.3 % 0-2 Nucleated Red Blood Cells % 0.2 Comp Metabolic Panel 02/28/2014 Sodium 138 mmol/L 133-145 Potassium 4.1 mmol/L 3.7-5.6 Chloride 105 mmol/L 101-111 Co2 Carbon Dioxide 26 mmol/L 22-32 Anion Gap 7 mmol/L 2-11 Glucose 70 mg/dL 70-100 Blood Urea Nitrogen 16 mg/dL 6-24 Creatinine 1.19 mg/dL High 0.67-1.17 BUN/Creatinine Ratio 13.4 8-20 Calcium 8.7 mg/dL 8.6-10.3 Total Protein 5.7 g/dL Low 6.4-8.9 Albumin 3.7 g/dL 3.2-5.2 Globulin 2.0 g/dL 2-4 Albumin/Globulin Ratio 1.9 1-3 Total Bilirubin 0.50 mg/dL 0.2-1.0 Alkaline Phosphatase 178 U/L High 34-104 Alt 13 U/L 7-52 Ast 17 U/L 13-39 Egfr Non- 61.5 >60 Egfr 79.2 >60 90 Laboratory test finding 02/28/2014 Magnesium 1.6 mg/dL Low 1.9-2.7 CBC Auto Diff 02/21/2014 White Blood Count 4.4 10^3/uL Low 4.8-10.8 Red Blood Count 3.16 10^6/uL Low 4.0-5.4 Hemoglobin 10.0 g/dL Low 14.0-18.0 Hematocrit 30 % Low 42-52 Mean Corpuscular Volume 94 fL 80-94 Mean Corpuscular Hemoglobin 32 pg High 27-31 Mean Corpuscular HGB Conc 33 g/dL 31-36 Red Cell Distribution Width 18 % High 10.5-15 Platelet Count 159 10^3/uL 150-450 Mean Platelet Volume 8 um3 7.4-10.4 Abs Neutrophils 2.8 10^3/uL 1.5-7.7 Abs Lymphocytes 0.9 10^3/uL Low 1.0-4.8 Abs Monocytes 0.6 10^3/uL 0-0.8 Abs Eosinophils 0.1 10^3/uL 0-0.6 Abs Basophils 0 10^3/uL 0-0.2 Abs Nucleated RBC 0.01 10^3/uL Granulocyte % 63.7 % 38-83 Lymphocyte % 20.4 % Low 25-47 Monocyte % 13.6 % High 1-9 Eosinophil % 1.5 % 0-6 Basophil % 0.8 % 0-2 Nucleated Red Blood Cells % 0.2 Cell Morphology 02/21/2014 Macrocytosis 1+ Microcytosis 1+ Laboratory test finding 02/21/2014 Immunoglobulin G 662 mg/dL 767 - 1590 91 Immunoglobulin M 87 mg/dL 37 - 286 92 Immunoglobulin A 20 mg/dL 61 - 356 93 Liborio Negron Torres/Lambda Free Light Chains 02/21/2014 Liborio Negron Torres Free Light Chain 0.9380 mg/ dL 94 Ser Lambda Free Light Chain 1.24 mg/dL 95 Liborio Negron Torres/Lambda Free Light Chain 0.7565 96 Protein Electrophoresis 02/21/2014 Total Protein(Pep) 6.2 g/dL 6.3 - 7.9 Albumin 3.0 g/dL 3.4-4.7 Alpha-1 Globulin 0.3 g/dL 0.1-0.3 Alpha-2 Globulin 1.1 g/dL 0.6-1.0 Beta Globulin 1.0 g/dL 0.7-1.2 Gamma Globulin 0.8 g/dL 0.6-1.6 Albumin/Globulin Ratio 0.95 M Carroll 0.4 g/dL Impression See Comment 97 Comp Metabolic Panel 02/21/2014 Sodium 140 mmol/L 133-145 Potassium 4.2 mmol/L 3.7-5.6 Chloride 107 mmol/L 101-111 Co2 Carbon Dioxide 25 mmol/L 22-32 Anion Gap 8 mmol/L 2-11 Glucose 69 mg/dL Low 70-100 Blood Urea Nitrogen 21 mg/dL 6-24 Creatinine 0.99 mg/dL 0.67-1.17 BUN/Creatinine Ratio 21.2 High 8-20 Calcium 8.4 mg/dL Low 8.6-10.3 Total Protein 5.8 g/dL Low 6.4-8.9 Albumin 3.8 g/dL 3.2-5.2 Globulin 2.0 g/dL 2-4 Albumin/Globulin Ratio 1.9 1-3 Total Bilirubin 0.80 mg/dL 0.2-1.0 Alkaline Phosphatase 192 U/L High 34-104 Alt 14 U/L 7-52 Ast 16 U/L 13-39 Egfr Non- 76.1 >60 Egfr 97.9 >60 98 Lipid Panel - [facility] 02/14/2014 Creatine Kinase 26 U/L 10-223 Lipid Profile (Trig/Chol/HDL) 02/14/2014 Triglycerides 241 mg/dL 99 Cholesterol 165 mg/dL 100 HDL Cholesterol 54.0 mg/dL 101 LDL Cholesterol 63 mg/dL 102 Laboratory test finding 02/14/2014 Magnesium 1.8 mg/dL Low 1.9-2.7 TSH (Thyroid Stimulating Horm) 1.19 IU/mL 0.34-5.60 CBC Auto Diff 02/14/2014 White Blood Count 5.2 10^3/uL 4.8-10.8 Red Blood Count 3.23 10^6/uL Low 4.0-5.4 Hemoglobin 10.0 g/dL Low 14.0-18.0 Hematocrit 30 % Low 42-52 Mean Corpuscular Volume 93 fL 80-94 Mean Corpuscular Hemoglobin 31 pg 27-31 Mean Corpuscular HGB Conc 33 g/dL 31-36 Red Cell Distribution Width 20 % High 10.5-15 Platelet Count 186 10^3/uL 150-450 Mean Platelet Volume 8 um3 7.4-10.4 Abs Neutrophils 3.4 10^3/uL 1.5-7.7 Abs Lymphocytes 1.0 10^3/uL 1.0-4.8 Abs Monocytes 0.8 10^3/uL 0-0.8 Abs Eosinophils 0.1 10^3/uL 0-0.6 Abs Basophils 0 10^3/uL 0-0.2 Abs Nucleated RBC 0.01 10^3/uL Comp Metabolic Panel 02/14/2014 Sodium 139 mmol/L 133-145 Potassium 4.2 mmol/L 3.7-5.6 Chloride 107 mmol/L 101-111 Co2 Carbon Dioxide 26 mmol/L 22-32 Anion Gap 6 mmol/L 2-11 Glucose 116 mg/dL High 70-100 Blood Urea Nitrogen 23 mg/dL 6-24 Creatinine 0.95 mg/dL 0.67-1.17 BUN/Creatinine Ratio 24.2 High 8-20 Calcium 7.9 mg/dL Low 8.6-10.3 Total Protein 5.8 g/dL Low 6.4-8.9 Albumin 3.7 g/dL 3.2-5.2 Globulin 2.1 g/dL 2-4 Albumin/Globulin Ratio 1.8 1-3 Total Bilirubin 0.50 mg/dL 0.2-1.0 Alkaline Phosphatase 256 U/L High 34-104 Alt 18 U/L 7-52 Ast 14 U/L 13-39 Egfr Non- 79.8 >60 Egfr 102.6 >60 103 Manual Differential 02/14/2014 Neutrophil % 73 % 38-83 Band % 2 % 0-8 Lymphocytes % 16 % Low 25-47 Monocytes % 9 % 0-13 RBC Morphology Normal Normal Laboratory test finding 01/17/2014 Digoxin 0.3 ng/ml Low 0.8-2.0 Comp Metabolic Panel 12/20/2013 Sodium 136 mmol/L 133-145 Potassium 5.0 mmol/L 3.7-5.6 Chloride 107 mmol/L 101-111 Co2 Carbon Dioxide 22 mmol/L 22-32 Anion Gap 7 mmol/L 2-11 Glucose 175 mg/dL High 70-100 Blood Urea Nitrogen 28 mg/dL High 6-24 Creatinine 1.36 mg/dL High 0.67-1.17 BUN/Creatinine Ratio 20.6 High 8-20 Calcium 8.5 mg/dL Low 8.6-10.3 Total Protein 6.3 g/dL Low 6.4-8.9 Albumin 3.8 g/dL 3.2-5.2 Globulin 2.5 g/dL 2-4 Albumin/Globulin Ratio 1.5 1-3 Total Bilirubin 0.40 mg/dL 0.2-1.0 Alkaline Phosphatase 208 U/L High 34-104 Alt 17 U/L 7-52 Ast 13 U/L 13-39 Egfr Non- 52.8 >60 Egfr 67.8 >60 104 CBC Auto Diff 12/20/2013 White Blood Count 5.3 10^3/uL 4.8-10.8 Red Blood Count 3.78 10^6/uL Low 4.0-5.4 Hemoglobin 9.9 g/dL Low 14.0-18.0 Hematocrit 30 % Low 42-52 Mean Corpuscular Volume 80 fL 80-94 Mean Corpuscular Hemoglobin 26 pg Low 27-31 Mean Corpuscular HGB Conc 33 g/dL 31-36 Red Cell Distribution Width 20 % High 10.5-15 Platelet Count 146 10^3/uL Low 150-450 Mean Platelet Volume 8 um3 7.4-10.4 Abs Neutrophils 3.0 10^3/uL 1.5-7.7 Abs Lymphocytes 1.3 10^3/uL 1.0-4.8 Abs Monocytes 0.7 10^3/uL 0-0.8 Abs Eosinophils 0.2 10^3/uL 0-0.6 Abs Basophils 0 10^3/uL 0-0.2 Abs Nucleated RBC 0.02 10^3/uL Manual Differential 12/20/2013 Neutrophil % 56 % 38-83 Lymphocytes % 24 % Low 25-47 Monocytes % 18 % High 0-13 Eosinophils % 2 % 0-6 Hypochromasia 1+ Polychromasia 1+ Liborio Negron Torres/Lambda Free Light Chains 12/20/2013 Liborio Negron Torres Free Light Chain 1.53 mg/dL 105 Ser Lambda Free Light Chain 1.71 mg/dL 106 Liborio Negron Torres/Lambda Free Light Chain 0.8947 107 Protein Electrophoresis 12/20/2013 Total Protein(Pep) 6.5 g/dL 6.3 - 7.9 Albumin 3.2 g/dL 3.4-4.7 Alpha-1 Globulin 0.3 g/dL 0.1-0.3 Alpha-2 Globulin 1.1 g/dL 0.6-1.0 Beta Globulin 0.9 g/dL 0.7-1.2 Gamma Globulin 1.0 g/dL 0.6-1.6 Albumin/Globulin Ratio 0.95 M Carroll 0.7 g/dL Impression See Comment 108 Laboratory test finding 12/20/2013 Immunoglobulin G 959 mg/dL 767 - 1590 109 Immunoglobulin M 112 mg/dL 37 - 286 110 Immunoglobulin A 27 mg/dL 61 - 356 111 Laboratory test finding 12/13/2013 Digoxin 0.6 ng/ml Low 0.8-2.0 1 Because ethnic data is not always readily available, this report includes an eGFR for both -Americans and non- Americans. The National Kidney Disease Education Program (NKDEP) does not endorse the use of the MDRD equation for patients that are not between the ages of 18 and 70, are , have extremes of body size, muscle mass, or nutritional status, or are non- or non-. According to the National Kidney Foundation, irrespective of diagnosis, the stage of the disease is based on the level of kidney function: Stage Description GFR(mL/min/1.73 m(2)) 1 Kidney damage with normal or decreased GFR 90 2 Kidney damage with mild decrease in GFR 60-89 3 Moderate decrease in GFR 30-59 4 Severe decrease in GFR 15-29 5 Kidney failure <15 (or dialysis) 2 REFERENCE VALUE 0.3300-1.94 3 REFERENCE VALUE 0.5700-2.63 4 REFERENCE VALUE 0.2600-1.65 Test Performed by: [facility] - [address] [address] 5 Test Performed by: [address] [address] 6 M-spike in gamma fraction. Size of monoclonal protein not changed significantly since 10/16/2017. Test Performed by: [address] [address] 7 Because ethnic data is not always readily available, this report includes an eGFR for both -Americans and non- Americans. The National Kidney Disease Education Program (NKDEP) does not endorse the use of the MDRD equation for patients that are not between the ages of 18 and 70, are , have extremes of body size, muscle mass, or nutritional status, or are non- or non-. According to the National Kidney Foundation, irrespective of diagnosis, the stage of the disease is based on the level of kidney function: Stage Description GFR(mL/min/1.73 m(2)) 1 Kidney damage with normal or decreased GFR 90 2 Kidney damage with mild decrease in GFR 60-89 3 Moderate decrease in GFR 30-59 4 Severe decrease in GFR 15-29 5 Kidney failure <15 (or dialysis) 8 add on dig level to todays labs 9 Pit Steward: [id number] Pit Steward: [id number] Pit Steward: [id number] 12 SEE RESULT BELOW Name: BIENVENIDO FERREIRA : [address]: Maulik Rojas MD Acct: [id number] Unit: [id number] AGE: 67 Location: OR Re10/23/17 SEX: M Status: [facility] [place] SPEC: [id number] RIYA: 10/23/17- SUBM DR: Maulik Rojas MD REQ: [id number] RECD: 10/23/17 STATUS: SOUT _ ORDERED: LEVEL 3 FINAL DIAGNOSIS Skin, left neck, excision: -- Epidermal inclusion cyst. PRE-OPERATIVE DIAGNOSIS Left posterior neck cyst. GROSS DESCRIPTION The specimen is received in formalin labeled, Left Neck Cyst, and consists of a 3.0 x 2.1 x 1.4 cm celis-pink markedly disrupted unilocular cyst containing abundant celis- white friable material. The specimen is partially surfaced by a 2.0 x 0.6 cm celis-white hairbearing skin ellipse. Professor Of Theology sections, one cassette. Signed by and Reported on: Sterling Hargrove MD 1023 END OF REPORT DEPARTMENT OF PATHOLOGY, [address] [place] [address] Sterling Hargrove M.D. Director [facility] # [id number] 13 Because ethnic data is not always readily available, this report includes an eGFR for both -Americans and non- Americans. The National Kidney Disease Education Program (NKDEP) does not endorse the use of the MDRD equation for patients that are not between the ages of 18 and 70, are , have extremes of body size, muscle mass, or nutritional status, or are non- or non-. According to the National Kidney Foundation, irrespective of diagnosis, the stage of the disease is based on the level of kidney function: Stage Description GFR(mL/min/1.73 m(2)) 1 Kidney damage with normal or decreased GFR 90 2 Kidney damage with mild decrease in GFR 60-89 3 Moderate decrease in GFR 30-59 4 Severe decrease in GFR 15-29 5 Kidney failure <15 (or dialysis) 14 Pit Steward: [id number] 15 Please note the change in INR reference range effective 17. Verbal to Dr Gamble by [id number] at 1807 on 05/08/17. Results read back accurately. 16 Desirable: <150 Borderline High: 150-199 High: 200-499 Very High: >500 17 Desirable: <200 Borderline High: 200-239 High: >239 18 Low: <40 Desirable: 40-60 High: >60 19 Desirable: <100 Near Optimal: 100-129 Borderline High: 130-159 High: 160-189 Very High: >189 20 Because ethnic data is not always readily available, this report includes an eGFR for both -Americans and non- Americans. The National Kidney Disease Education Program (NKDEP) does not endorse the use of the MDRD equation for patients that are not between the ages of 18 and 70, are , have extremes of body size, muscle mass, or nutritional status, or are non- or non-. According to the National Kidney Foundation, irrespective of diagnosis, the stage of the disease is based on the level of kidney function: Stage Description GFR(mL/min/1.73 m(2)) 1 Kidney damage with normal or decreased GFR 90 2 Kidney damage with mild decrease in GFR 60-89 3 Moderate decrease in GFR 30-59 4 Severe decrease in GFR 15-29 5 Kidney failure <15 (or dialysis) 21 in approx 1 week Copy Result to: ADAMS WHITMORE ([id number]) 22 in approx 1 week Copy Result to: ADAMS WHITMORE ([id number]) 23 SEE RESULT BELOW Name: BIENVENIDO FERREIRA : [address]: Alberto Potter MD Acct: [id number] Unit: [id number] AGE: 66 Location: ED Re03/09/17 SEX: M Status: REG ER SPEC: [id number] RIYA: 03/09/[address] [facility] [address]: Edwige Linares DISASSEMBLER-C REQ: [id number] RECD: 03/09/17 STATUS: RES OTHR DR: [facility] Marcin Potter MD _ SOURCE: NASAL SPDESC: ORDERED: MRSA PCR-Nasal, Flu A B Request Procedure Result Reported Site MRSA PCR (Nasal) PENDING Rapid Influenza A B Request Final 03/09/17- 1100 ML Specimen received for Influenza A/B Molecular testing * ML - MAIN LAB ([facility]) . END OF REPORT * ML=Testing performed at Main Lab DEPARTMENT OF PATHOLOGY, [address] [place] [address] Sterling Hargrove M.D. Director [facility] # [id number] 24 Pit Steward: [id number] 25 Because ethnic data is not always readily available, this report includes an eGFR for both -Americans and non- Americans. The National Kidney Disease Education Program (NKDEP) does not endorse the use of the MDRD equation for patients that are not between the ages of 18 and 70, are , have extremes of body size, muscle mass, or nutritional status, or are non- or non-. According to the National Kidney Foundation, irrespective of diagnosis, the stage of the disease is based on the level of kidney function: Stage Description GFR(mL/min/1.73 m(2)) 1 Kidney damage with normal or decreased GFR 90 2 Kidney damage with mild decrease in GFR 60-89 3 Moderate decrease in GFR 30-59 4 Severe decrease in GFR 15-29 5 Kidney failure <15 (or dialysis) 26 >100 to <200 pg/mL: likely compensated congestive heart failure (CHF) 200 to 400 pg/mL: likely moderate CHF >400 pg/mL: likely moderate to severe CHF 27 Because ethnic data is not always readily available, this report includes an eGFR for both -Americans and non- Americans. The National Kidney Disease Education Program (NKDEP) does not endorse the use of the MDRD equation for patients that are not between the ages of 18 and 70, are , have extremes of body size, muscle mass, or nutritional status, or are non- or non-. According to the National Kidney Foundation, irrespective of diagnosis, the stage of the disease is based on the level of kidney function: Stage Description GFR(mL/min/1.73 m(2)) 1 Kidney damage with normal or decreased GFR 90 2 Kidney damage with mild decrease in GFR 60-89 3 Moderate decrease in GFR 30-59 4 Severe decrease in GFR 15-29 5 Kidney failure <15 (or dialysis) 28 Desirable <150 Borderline high 150-199 High 200-499 Very High >500 29 Desirable <200 Borderline high 200-239 High >239 30 Low <40 Desirable: 40-60 High: >60 31 Desirable: <100 mg/dL Near Optimal: 100-129 mg/dL Borderline High: 130-159 mg/dL High: 160-189 mg/dL Very High: >189 mg/dL 32 Because ethnic data is not always readily available, this report includes an eGFR for both -Americans and non- Americans. The National Kidney Disease Education Program (NKDEP) does not endorse the use of the MDRD equation for patients that are not between the ages of 18 and 70, are , have extremes of body size, muscle mass, or nutritional status, or are non- or non-. According to the National Kidney Foundation, irrespective of diagnosis, the stage of the disease is based on the level of kidney function: Stage Description GFR(mL/min/1.73 m(2)) 1 Kidney damage with normal or decreased GFR 90 2 Kidney damage with mild decrease in GFR 60-89 3 Moderate decrease in GFR 30-59 4 Severe decrease in GFR 15-29 5 Kidney failure <15 (or dialysis) 33 Desirable <150 Borderline high 150-199 High 200-499 Very High >500 34 Desirable <200 Borderline high 200-239 High >239 35 Low <40 Desirable: 40-60 High: >60 36 Desirable: <100 mg/dL Near Optimal: 100-129 mg/dL Borderline High: 130-159 mg/dL High: 160-189 mg/dL Very High: >189 mg/dL 37 Consistent with previous results on 02/29/16. 38 Consistent with previous results on 02/29/16. 39 Because ethnic data is not always readily available, this report includes an eGFR for both -Americans and non- Americans. The National Kidney Disease Education Program (NKDEP) does not endorse the use of the MDRD equation for patients that are not between the ages of 18 and 70, are , have extremes of body size, muscle mass, or nutritional status, or are non- or non-. According to the National Kidney Foundation, irrespective of diagnosis, the stage of the disease is based on the level of kidney function: Stage Description GFR(mL/min/1.73 m(2)) 1 Kidney damage with normal or decreased GFR 90 2 Kidney damage with mild decrease in GFR 60-89 3 Moderate decrease in GFR 30-59 4 Severe decrease in GFR 15-29 5 Kidney failure <15 (or dialysis) 40 Consistent with previous results on 09/18/15. 41 Desirable <150 Borderline high 150-199 High 200-499 Very High >500 42 Desirable <200 Borderline high 200-239 High >239 43 Low <40 Desirable: 40-60 High: >60 44 Desirable: <100 mg/dL Near Optimal: 100-129 mg/dL Borderline High: 130-159 mg/dL High: 160-189 mg/dL Very High: >189 mg/dL 45 REFERENCE VALUE 1.21 - 2.70 Test Performed by: [place] [address] Glass Maker: Ronald Palafox II, M.D., Ph.D. 46 Test Performed by: [place] [address] Glass Maker: Ronald Palafox II, M.D., Ph.D. 47 REFERENCE VALUE 0.3300-1.94 48 REFERENCE VALUE 0.5700-2.63 49 REFERENCE VALUE 0.2600-1.65 Test Performed by: [facility] - [address] [address] Glass Maker: Ronald Palafox II, M.D., Ph.D. 50 M-spike in gamma fraction. Size of monoclonal protein not changed significantly since 07/24/2015. Test Performed by: [facility] - [address] [address] Glass Maker: Ronald Palafox II, M.D., Ph.D. 51 Because ethnic data is not always readily available, this report includes an eGFR for both -Americans and non- Americans. The National Kidney Disease Education Program (NKDEP) does not endorse the use of the MDRD equation for patients that are not between the ages of 18 and 70, are , have extremes of body size, muscle mass, or nutritional status, or are non- or non-. According to the National Kidney Foundation, irrespective of diagnosis, the stage of the disease is based on the level of kidney function: Stage Description GFR(mL/min/1.73 m(2)) 1 Kidney damage with normal or decreased GFR 90 2 Kidney damage with mild decrease in GFR 60-89 3 Moderate decrease in GFR 30-59 4 Severe decrease in GFR 15-29 5 Kidney failure <15 (or dialysis) 52 Because ethnic data is not always readily available, this report includes an eGFR for both -Americans and non- Americans. The National Kidney Disease Education Program (NKDEP) does not endorse the use of the MDRD equation for patients that are not between the ages of 18 and 70, are , have extremes of body size, muscle mass, or nutritional status, or are non- or non-. According to the National Kidney Foundation, irrespective of diagnosis, the stage of the disease is based on the level of kidney function: Stage Description GFR(mL/min/1.73 m(2)) 1 Kidney damage with normal or decreased GFR 90 2 Kidney damage with mild decrease in GFR 60-89 3 Moderate decrease in GFR 30-59 4 Severe decrease in GFR 15-29 5 Kidney failure <15 (or dialysis) 53 Because ethnic data is not always readily available, this report includes an eGFR for both -Americans and non- Americans. The National Kidney Disease Education Program (NKDEP) does not endorse the use of the MDRD equation for patients that are not between the ages of 18 and 70, are , have extremes of body size, muscle mass, or nutritional status, or are non- or non-. According to the National Kidney Foundation, irrespective of diagnosis, the stage of the disease is based on the level of kidney function: Stage Description GFR(mL/min/1.73 m(2)) 1 Kidney damage with normal or decreased GFR 90 2 Kidney damage with mild decrease in GFR 60-89 3 Moderate decrease in GFR 30-59 4 Severe decrease in GFR 15-29 5 Kidney failure <15 (or dialysis) 54 RESULT: No apparent monoclonal protein on serum electrophoresis. Test Performed by: [place] [address] Glass Maker: Ronald Palafox II, M.D., Ph.D. 55 REFERENCE VALUE 0.3300-1.94 56 REFERENCE VALUE 0.5700-2.63 57 REFERENCE VALUE 0.2600-1.65 Test Performed by: [address] [address] Glass Maker: Ronald Palafox II, M.D., Ph.D. 58 Test Performed by: [place] [address] Glass Maker: Ronald Palafox II, M.D., Ph.D. 59 Because ethnic data is not always readily available, this report includes an eGFR for both -Americans and non- Americans. The National Kidney Disease Education Program (NKDEP) does not endorse the use of the MDRD equation for patients that are not between the ages of 18 and 70, are , have extremes of body size, muscle mass, or nutritional status, or are non- or non-. According to the National Kidney Foundation, irrespective of diagnosis, the stage of the disease is based on the level of kidney function: Stage Description GFR(mL/min/1.73 m(2)) 1 Kidney damage with normal or decreased GFR 90 2 Kidney damage with mild decrease in GFR 60-89 3 Moderate decrease in GFR 30-59 4 Severe decrease in GFR 15-29 5 Kidney failure <15 (or dialysis) 60 Because ethnic data is not always readily available, this report includes an eGFR for both -Americans and non- Americans. The National Kidney Disease Education Program (NKDEP) does not endorse the use of the MDRD equation for patients that are not between the ages of 18 and 70, are , have extremes of body size, muscle mass, or nutritional status, or are non- or non-. According to the National Kidney Foundation, irrespective of diagnosis, the stage of the disease is based on the level of kidney function: Stage Description GFR(mL/min/1.73 m(2)) 1 Kidney damage with normal or decreased GFR 90 2 Kidney damage with mild decrease in GFR 60-89 3 Moderate decrease in GFR 30-59 4 Severe decrease in GFR 15-29 5 Kidney failure <15 (or dialysis) 61 Because ethnic data is not always readily available, this report includes an eGFR for both -Americans and non- Americans. The National Kidney Disease Education Program (NKDEP) does not endorse the use of the MDRD equation for patients that are not between the ages of 18 and 70, are , have extremes of body size, muscle mass, or nutritional status, or are non- or non-. According to the National Kidney Foundation, irrespective of diagnosis, the stage of the disease is based on the level of kidney function: Stage Description GFR(mL/min/1.73 m(2)) 1 Kidney damage with normal or decreased GFR 90 2 Kidney damage with mild decrease in GFR 60-89 3 Moderate decrease in GFR 30-59 4 Severe decrease in GFR 15-29 5 Kidney failure <15 (or dialysis) 62 Verbal to [id number] by [id number] at 0425 on 06/24/14. Results read back accurately. 63 Reference ranges based on room air. 64 Please note: Effective June 08, 2014, the reference value for this test has changed due to the validation and activation of a new reagent lot number. 65 Verbal to [id number] by [id number] at 0126 on 06/24/14. Results read back accurately. Please note: The following may produce a false positive D Dimer test: - Rheumatoid factor greater than 60 IU/ml - Plasma hemoglobin greater than 0.05 gm/dl - Bilirubin greater than 50 mg/dl - Lipids greater than 1000 mg/dl - FDP greater than 20 ug/ml 66 Because ethnic data is not always readily available, this report includes an eGFR for both -Americans and non- Americans. The National Kidney Disease Education Program (NKDEP) does not endorse the use of the MDRD equation for patients that are not between the ages of 18 and 70, are , have extremes of body size, muscle mass, or nutritional status, or are non- or non-. According to the National Kidney Foundation, irrespective of diagnosis, the stage of the disease is based on the level of kidney function: Stage Description GFR(mL/min/1.73 m(2)) 1 Kidney damage with normal or decreased GFR 90 2 Kidney damage with mild decrease in GFR 60-89 3 Moderate decrease in GFR 30-59 4 Severe decrease in GFR 15-29 5 Kidney failure <15 (or dialysis) 67 Reference Range and Interpretation: TnI (ng/mL) Interpretation Less Than 0.03 ng/mL Not supportive of diagnosis of MD 0.03 - 0.50 ng/mL Indeterminate: suggest serial studies if clinically indicated. Greater than 0.5 ng/mL Consistent with diagnosis of MD 68 Acute inflammation: >10.00 69 >100 to <200 pg/mL: likely compensated congestive heart failure (CHF) 200 to 400 pg/mL: likely moderate CHF >400 pg/mL: likely moderate to severe CHF [facility] 70 within 2 weeks ccpmd 71 within 2 weeks ccpmd 72 Because ethnic data is not always readily available, this report includes an eGFR for both -Americans and non- Americans. The National Kidney Disease Education Program (NKDEP) does not endorse the use of the MDRD equation for patients that are not between the ages of 18 and 70, are , have extremes of body size, muscle mass, or nutritional status, or are non- or non-. According to the National Kidney Foundation, irrespective of diagnosis, the stage of the disease is based on the level of kidney function: Stage Description GFR(mL/min/1.73 m(2)) 1 Kidney damage with normal or decreased GFR 90 2 Kidney damage with mild decrease in GFR 60-89 3 Moderate decrease in GFR 30-59 4 Severe decrease in GFR 15-29 5 Kidney failure <15 (or dialysis) 73 Because ethnic data is not always readily available, this report includes an eGFR for both -Americans and non- Americans. The National Kidney Disease Education Program (NKDEP) does not endorse the use of the MDRD equation for patients that are not between the ages of 18 and 70, are , have extremes of body size, muscle mass, or nutritional status, or are non- or non-. According to the National Kidney Foundation, irrespective of diagnosis, the stage of the disease is based on the level of kidney function: Stage Description GFR(mL/min/1.73 m(2)) 1 Kidney damage with normal or decreased GFR 90 2 Kidney damage with mild decrease in GFR 60-89 3 Moderate decrease in GFR 30-59 4 Severe decrease in GFR 15-29 5 Kidney failure <15 (or dialysis) 74 Potassium reference range changed effective 03/13/14 75 Because ethnic data is not always readily available, this report includes an eGFR for both -Americans and non- Americans. The National Kidney Disease Education Program (NKDEP) does not endorse the use of the MDRD equation for patients that are not between the ages of 18 and 70, are , have extremes of body size, muscle mass, or nutritional status, or are non- or non-. According to the National Kidney Foundation, irrespective of diagnosis, the stage of the disease is based on the level of kidney function: Stage Description GFR(mL/min/1.73 m(2)) 1 Kidney damage with normal or decreased GFR 90 2 Kidney damage with mild decrease in GFR 60-89 3 Moderate decrease in GFR 30-59 4 Severe decrease in GFR 15-29 5 Kidney failure <15 (or dialysis) 76 Potassium reference range changed effective 03/13/14 77 Because ethnic data is not always readily available, this report includes an eGFR for both -Americans and non- Americans. The National Kidney Disease Education Program (NKDEP) does not endorse the use of the MDRD equation for patients that are not between the ages of 18 and 70, are , have extremes of body size, muscle mass, or nutritional status, or are non- or non-. According to the National Kidney Foundation, irrespective of diagnosis, the stage of the disease is based on the level of kidney function: Stage Description GFR(mL/min/1.73 m(2)) 1 Kidney damage with normal or decreased GFR 90 2 Kidney damage with mild decrease in GFR 60-89 3 Moderate decrease in GFR 30-59 4 Severe decrease in GFR 15-29 5 Kidney failure <15 (or dialysis) 78 Potassium reference range changed effective 03/13/14 79 Because ethnic data is not always readily available, this report includes an eGFR for both -Americans and non- Americans. The National Kidney Disease Education Program (NKDEP) does not endorse the use of the MDRD equation for patients that are not between the ages of 18 and 70, are , have extremes of body size, muscle mass, or nutritional status, or are non- or non-. According to the National Kidney Foundation, irrespective of diagnosis, the stage of the disease is based on the level of kidney function: Stage Description GFR(mL/min/1.73 m(2)) 1 Kidney damage with normal or decreased GFR 90 2 Kidney damage with mild decrease in GFR 60-89 3 Moderate decrease in GFR 30-59 4 Severe decrease in GFR 15-29 5 Kidney failure <15 (or dialysis) 80 Test Performed by: [place] [address] Glass Maker: Hussein Bustamante M.D. 81 Test Performed by: [place] [address] Glass Maker: Hussein Bustamante M.D. 82 Test Performed by: [place] [address] Glass Maker: Hussein Bustamante M.D. 83 REFERENCE VALUE 0.3300-1.94 84 REFERENCE VALUE 0.5700-2.63 85 REFERENCE VALUE 0.2600-1.65 Test Performed by: [place] [address] Glass Maker: Hussein Bustamante M.D. 86 M-spike in gamma fraction. Size of monoclonal protein not changed significantly since 02/21/2014. Test Performed by: [place] [address] Glass Maker: Hussein Bustamante M.D. 87 Potassium reference range changed effective 03/13/14 88 Because ethnic data is not always readily available, this report includes an eGFR for both -Americans and non- Americans. The National Kidney Disease Education Program (NKDEP) does not endorse the use of the MDRD equation for patients that are not between the ages of 18 and 70, are , have extremes of body size, muscle mass, or nutritional status, or are non- or non-. According to the National Kidney Foundation, irrespective of diagnosis, the stage of the disease is based on the level of kidney function: Stage Description GFR(mL/min/1.73 m(2)) 1 Kidney damage with normal or decreased GFR 90 2 Kidney damage with mild decrease in GFR 60-89 3 Moderate decrease in GFR 30-59 4 Severe decrease in GFR 15-29 5 Kidney failure <15 (or dialysis) 89 Because ethnic data is not always readily available, this report includes an eGFR for both -Americans and non- Americans. The National Kidney Disease Education Program (NKDEP) does not endorse the use of the MDRD equation for patients that are not between the ages of 18 and 70, are , have extremes of body size, muscle mass, or nutritional status, or are non- or non-. According to the National Kidney Foundation, irrespective of diagnosis, the stage of the disease is based on the level of kidney function: Stage Description GFR(mL/min/1.73 m(2)) 1 Kidney damage with normal or decreased GFR 90 2 Kidney damage with mild decrease in GFR 60-89 3 Moderate decrease in GFR 30-59 4 Severe decrease in GFR 15-29 5 Kidney failure <15 (or dialysis) 90 Because ethnic data is not always readily available, this report includes an eGFR for both -Americans and non- Americans. The National Kidney Disease Education Program (NKDEP) does not endorse the use of the MDRD equation for patients that are not between the ages of 18 and 70, are , have extremes of body size, muscle mass, or nutritional status, or are non- or non-. According to the National Kidney Foundation, irrespective of diagnosis, the stage of the disease is based on the level of kidney function: Stage Description GFR(mL/min/1.73 m(2)) 1 Kidney damage with normal or decreased GFR 90 2 Kidney damage with mild decrease in GFR 60-89 3 Moderate decrease in GFR 30-59 4 Severe decrease in GFR 15-29 5 Kidney failure <15 (or dialysis) 91 Test Performed by: [place] [address] Glass Maker: Hussein Bustamante M.D. 92 Test Performed by: [place] [address] Glass Maker: Hussein Bustamante M.D. 93 Test Performed by: [facility] [place] [address] Glass Maker: Hussein Bustamante M.D. 94 REFERENCE VALUE 0.3300-1.94 95 REFERENCE VALUE 0.5700-2.63 96 REFERENCE VALUE 0.2600-1.65 Test Performed by: [facility] [place] [address] Glass Maker: Hussein Bustamante M.D. 97 M-spike in gamma fraction. Size of monoclonal protein not changed significantly since 01/31/2014. Test Performed by: [place] [address] Glass Maker: Hussein Bustamante M.D. 98 Because ethnic data is not always readily available, this report includes an eGFR for both -Americans and non- Americans. The National Kidney Disease Education Program (NKDEP) does not endorse the use of the MDRD equation for patients that are not between the ages of 18 and 70, are , have extremes of body size, muscle mass, or nutritional status, or are non- or non-. According to the National Kidney Foundation, irrespective of diagnosis, the stage of the disease is based on the level of kidney function: Stage Description GFR(mL/min/1.73 m(2)) 1 Kidney damage with normal or decreased GFR 90 2 Kidney damage with mild decrease in GFR 60-89 3 Moderate decrease in GFR 30-59 4 Severe decrease in GFR 15-29 5 Kidney failure <15 (or dialysis) 99 Desirable <150 Borderline high 150-199 High 200-499 Very High >500 100 Desirable <200 Borderline high 200-239 High >239 101 Low <40 Desirable: 40-60 High: >60 102 Desirable <100 Near Optimal 100-129 Borderline high 130-159 High 160-189 Very High >189 103 Because ethnic data is not always readily available, this report includes an eGFR for both -Americans and non- Americans. The National Kidney Disease Education Program (NKDEP) does not endorse the use of the MDRD equation for patients that are not between the ages of 18 and 70, are , have extremes of body size, muscle mass, or nutritional status, or are non- or non-. According to the National Kidney Foundation, irrespective of diagnosis, the stage of the disease is based on the level of kidney function: Stage Description GFR(mL/min/1.73 m(2)) 1 Kidney damage with normal or decreased GFR 90 2 Kidney damage with mild decrease in GFR 60-89 3 Moderate decrease in GFR 30-59 4 Severe decrease in GFR 15-29 5 Kidney failure <15 (or dialysis) 104 Because ethnic data is not always readily available, this report includes an eGFR for both -Americans and non- Americans. The National Kidney Disease Education Program (NKDEP) does not endorse the use of the MDRD equation for patients that are not between the ages of 18 and 70, are , have extremes of body size, muscle mass, or nutritional status, or are non- or non-. According to the National Kidney Foundation, irrespective of diagnosis, the stage of the disease is based on the level of kidney function: Stage Description GFR(mL/min/1.73 m(2)) 1 Kidney damage with normal or decreased GFR 90 2 Kidney damage with mild decrease in GFR 60-89 3 Moderate decrease in GFR 30-59 4 Severe decrease in GFR 15-29 5 Kidney failure <15 (or dialysis) 105 -- REFERENCE VALUE -- 0.3300-1.94 106 -- REFERENCE VALUE -- 0.5700-2.63 107 -- REFERENCE VALUE -- 0.2600-1.65 Test Performed by: [address] [address] Glass Maker: Ehsan Castrejon III, M.D. 108 M-spike in gamma fraction. Size of monoclonal protein decreased significantly since 11/08/2013. Test Performed by: [place] [address] Glass Maker: Ehsan Castrejon III, M.D. 109 Test Performed by: [place] [address] Glass Maker: Ehsan Castrejon III, M.D. 110 Test Performed by: [place] [address] Glass Maker: Ehsan Castrejon III, M.D. 111 Test Performed by: [place] [address] Glass Maker: Ehsan Castrejon III, M.D. Procedures Date CPT Code Description Status 11/06/2017 50455 Holter Monitor Review (24 hr)dr review & interp only Completed 10/29/2017 12238 Pace Maker Eval W/Iterative Adjment Dual Lead Completed 10/23/2017 49937 Repair Hernia Umbilical > 5 Yrs, Reducible Completed 10/23/2017 27350 Excise Benign Lesion 2.1-3CM Completed Scalp/Neck/Hands/Feet/Genitalia 10/16/2017 46426 EKG Tracing & Interpretation Completed 06/18/2017 58194 ECHO Transthoracic, Real-Time 2D With Doppler And Color Completed Flow 06/18/2017 99977 ECHO Transthoracic, Real-Time 2D With Doppler And Color Completed Flow 05/28/2017 31978 Pace Maker Eval W/Iterative Adjment Dual Lead Completed 05/28/2017 32725 Pace Maker Eval W/Iterative Adjment Dual Lead Completed 05/01/2017 46907 EKG Tracing & Interpretation Completed 03/17/2017 89599 EKG, Interpretation Only Completed 03/11/2017 19011 EKG, Interpretation Only Completed 03/11/2017 06246 Endo-Trachial Tube Completed 03/10/2017 97285 EKG, Interpretation Only Completed 03/09/2017 44242 EKG, Interpretation Only Completed 12/16/2016 30973 EKG Tracing & Interpretation Completed 12/05/2016 75855 EKG, Interpretation Only Completed 12/04/2016 08831 EKG, Interpretation Only Completed 12/03/2016 26560 EKG, Interpretation Only Completed 12/02/2016 61615 EKG, Interpretation Only Completed 12/01/2016 50435 EKG, Interpretation Only Completed 11/19/2016 58130 Pace Maker Eval W/Iterative Adjment Dual Lead Completed 08/27/2016 73631 EKG Tracing & Interpretation Completed 08/14/2016 69034 ECHO Transthoracic, Real-Time 2D With Doppler And Color Completed Flow 07/31/2016 70374 EKG Tracing & Interpretation Completed 07/23/2016 56648 EKG Tracing & Interpretation Completed 04/30/2016 28086 Pace Maker Eval W/Iterative Adjment Dual Lead Completed 02/19/2016 07029 Icd Eval Sing,Dual,Multi Lead Remote Recpt Transm Tech Completed Rev Tech S 02/19/2016 15801 Pacemaker Check Remote Up To 90Days Completed Single,Dual,Multiple Lead 02/13/2016 15599 Pacemaker Check Remote Up To 90Days Completed Single,Dual,Multiple Lead 02/13/2016 38551 Icd Eval Sing,Dual,Multi Lead Remote Recpt Transm Tech Completed Rev Tech S 01/24/2016 80147 Inject/Drain Joint/Bursa Major W/O US Completed 10/30/2015 79302 EKG Tracing & Interpretation Completed 10/17/2015 13364 Pace Maker Eval W/Iterative Adjment Dual Lead Completed 07/31/2015 89374 EKG Tracing & Interpretation Completed 07/24/2015 33231 Icd Eval Sing,Dual,Multi Lead Remote Recpt Transm Tech Completed Rev Tech S 07/24/2015 30430 Pacemaker Check Remote Up To 90Days Completed Single,Dual,Multiple Lead 05/10/2015 95951 Diffusing Capacity Completed 05/10/2015 67492 Spirometry Incl Graphic Record Completed 05/02/2015 47310 Pacemaker Check Remote Up To 90Days Completed Single,Dual,Multiple Lead 05/02/2015 79652 Icd Eval Sing,Dual,Multi Lead Remote Recpt Transm Tech Completed Rev Tech S 04/27/2015 93099 EKG Tracing & Interpretation Completed 10/27/2014 19175 EKG, Interpretation Only Completed 10/24/2014 27554 THR Total Hip Replacement Completed 10/24/2014 16574 THR Total Hip Replacement Completed 10/13/2014 45098 ECHO Transthoracic, Real-Time 2D With Doppler And Color Completed Flow 10/05/2014 50974 Pace Maker Eval W/Iterative Adjment Dual Lead Completed 09/27/2014 68614 Interrogation Device Eval In Person W/DR Completed Analysis,Single,Dual,Mul 09/06/2014 14955 Interrogation Device Eval In Person W/DR Completed Analysis,Single,Dual,Mul 09/05/2014 65147 Perm Pacemaker Av Sequential Atrial And Ventricular Completed 09/01/2014 79710 EKG Tracing & Interpretation Completed 08/25/2014 06378 ECHO Transthoracic, Real-Time 2D With Doppler And Color Completed Flow 08/01/2014 67214 EKG Tracing & Interpretation Completed 06/30/2014 63799 Treadmill Interp/Report Only Completed 06/30/2014 66932 Stress Test Supervsn W/Out I/R Completed 06/27/2014 11823 ECHO Transthorasic Realtime 2D W Doppler & Color Flow Completed Hosp 06/26/2014 39216 EKG, Interpretation Only Completed 06/25/2014 73666 EKG, Interpretation Only Completed 06/24/2014 33677 Bronchoscopy W/Aspiration Tracheobronchial Tree Initial Completed 06/24/2014 74487 Insert Non-Tunneled Venous Catether Completed 06/24/2014 77412 EKG, Interpretation Only Completed 06/24/2014 01369 ECHO Transthorasic Realtime 2D W Doppler & Color Flow Completed Hosp 04/06/2014 77209 ECHO Transthoracic, Real-Time 2D With Doppler And Color Completed Flow 03/25/2014 61753 Rad Exam; Hip Unilat Completed 03/25/2014 38138 Rad Exam; Pelvis Completed 03/18/2014 58647 EKG Tracing & Interpretation Completed 03/10/2014 04561 Holter Monitoring 24 HR New Completed 03/04/2014 84935 Rad Exam; Hip Unilat Completed 03/04/2014 76341 Rad Exam; Pelvis Completed 02/11/2014 57256 Rad Exam; Pelvis Completed 02/11/2014 46748 Rad Exam; Hip Unilat Completed 02/10/2014 01171 EKG Tracing & Interpretation Completed 02/04/2014 29250 Rad Exam; Hip Unilat Completed 02/04/2014 83681 Rad Exam; Pelvis Completed 01/28/2014 99916 Rad Exam; Hip Unilat Completed 01/28/2014 00647 Rad Exam; Pelvis Completed 01/13/2014 13854 EKG Tracing & Interpretation Completed 12/02/2013 34852 EKG Tracing & Interpretation Completed 10/24/2013 76191 EKG, Interpretation Only Completed 10/23/2013 04929 EKG, Interpretation Only Completed 10/22/2013 24982 ECHO Transthorasic Realtime 2D W Doppler & Color Flow Completed Hosp Encounters Type Date Location Provider CPT E/M Dx Office Visit 10/16/2017 2:40p [facility] Joce Cain, [address] I10 [facility] MChristo E78.00 I42.9 I48.2 I35.0 Office Visit 09/23/2017 9:30a [facility], 51248 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, Horacio Villanueva, 95386 J96.02 Hospitalists Maureen R65.21 I48.91 J18.9 Office Visit 03/16/2017 1:57p [facility], Horacio Villanueva, 93044 J96.02 Hospitalists Maureen R65.21 I48.91 J18.9 Office Visit 03/15/2017 1:57p [facility] Nilda Amaya, 62321 J96.02 Assoc, Hospitalists Maureen R65.21 I48.91 J18.9 Office Visit 03/14[facility]2017 [facility] [address] J96.02 [facility]oc, Hospitalists Maureen R65.21 I48.91 J18.9 Office Visit 03/12/2017 1:51p [facility] Praful Nails D.O. 19123 J96.02 R65.21 I48.91 J18.9 Office Visit 03/11/2017 1:49p [facility] Mitchel Gamble M.D. 36037 J18.9 I48.91 A41.9 R65.21 Office Visit 03/11/2017 1:48p [facility], Meghan Carlisle, 65745 I50.1 Hospitalists N.P. A41.9 I48.91 J18.9 Office Visit 03/10/2017 1:47p [facility] Meghan Carlisle, 78754 A41.9 Hospitalists N.P. J18.9 I48.91 Office Visit 03/09/2017 1:46p [facility], [place] [address] A41.9 Hospitalists J18.9 I48.91 Office Visit 02/26/2017 9:30a [facility], 18861 M54.41 C.M.A. M.D. S32.810D Office Visit 02/12/2017 1:45p [facility], 20350 M54.41 C.M.A. M.D. S32.810D Office Visit 01/27/2017 8:33a [facility] Anne Rios, 00971 S32.511A C.M.A. M.D. W19.xxxA S32.311A Office Visit 01/27/2017 9:57a [facility], Jessie Connors, 21013 C90.00 Hospitalists M.D. D50.0 R41.0 Office Visit 01/26/2017 9:56a [facility], Jessie Connors, 46825 C90.00 Hospitalists M.D. D50.0 R41.0 S32.591A Office Visit 01/25/2017 9:55a [facility], [place] [address] I42.9 Hospitalists C90.00 S32.591A Office Visit 01/25/2017 7:55a [facility] Rios, 79792 S32.511A C.M.A. M.D. S32.591A W19.xxxA S32.311A Office Visit 12/16/2016 2:00p [facility] MARQUITA Joshi [address]2076 I48.0 I50.33 I25.10 Office Visit 12/06/2016 1:07p [facility] Sergey Gamble, 29993 I48.0 DO [facility] Office Visit 12/05/2016 2:31p [facility],[place] [address] I48.0 Hospitalists C90.00 I50.31 J96.11 Office Visit 12/05/2016 11:37a [facility] [place] [address] I48.0 [facility] FACC I50.33 I25.10 I25.2 Z95.0 Office Visit 12/04/2016 1:57p [facility] Radha Ray M.D. 65068 I48.0 [facility] I25.10 I50.33 I25.2 Z95.0 Office Visit 12/03/2016 1:49p [facility] Husam Low, 84162 I48.0 [facility] Maureen I49.5 Z95.0 Office Visit 12/02/2016 2:06p [facility] Husam Low, 30982 I48.91 [facility] M.DJailyn Office Visit 12/01/2016 2:33p [facility] Radha Ray M.D. 88808 I48.0 [facility] Office Visit 12/01/2016 7:40a [facility],pc Myla Sung N.P. 50446 I48.91 Hospitalists C90.00 I50.33 J44.9 Office Visit 11/30/2016 2:32p [facility] Radha Ray M.D. 21166 I48.0 [facility] I50.31 I25.10 I25.2 I49.5 Z95.0 Office Visit 11/29/2016 2:31p [facility] [place] [address] I48.0 [facility] FAC I50.31 I25.10 I25.2 Office Visit 08/27/2016 10:30a [facility] MARQUITA Joshi 42966 I35.0 I10 R06.00 Z95.0 Office Visit 07/31/2016 9:30a [facility] MARQUITA Joshi 43299 I48.0 I10 I25.10 I26.99 R06.02 Office Visit 07/23/2016 9:20a [facility] oJce Cain M.D. 84174 I48.0 C90.00 Z95.0 R06.00 I25.10 I10 Office Visit 04/02/2016 10:00a [facility] Adams Whitmore M.D. 26210 C90.00 Of Bottom Precipitator Operator AT [place] C79.51 M84.412P M87.9 G89.3 Office Visit 03/05/2016 11:40a [facility] Adams Whitmore M.D. 66076 C90.00 Of Bottom Precipitator Operator AT [place] C79.51 M84.412P M87.9 Office Visit 02/06/2016 2:00p [facility] Adams Whitmore M.D. 28163 C90.00 Of Bottom Precipitator Operator AT [place] C79.51 M84.412P M87.9 Office Visit 01/31/2016 11:15a [facility] Brent Juan M.D. 19585 M84.412A Of C.M.AJailyn Office Visit 01/24/2016 4:00p [facility] Dameon Chavarria 00513 M25.512 Of Stas Reddy Office Visit 10/30/2015 3:40p [facility] Joce Perry 28562 I48.0 Maureen Cain I10 I35.0 Office Visit 10/19/2015 11:00a [facility] Dameon Chavarria, 63250 M16.52 Stas Reddy Z96.642 Office Visit 08/17/2015 2:30p [facility] MARQUITA Joshi 48365EWG I48.0 I10 I35.0 R53.83 Z95.0 E78.5 Office Visit 07/31/2015 11:20a [facility] Joce Cain M.D. 20859 I48.0 I10 I35.0 G47.9 R53.83 Office Visit 05/09/2015 9:30a [facility] MARQUITA Joshi 05532BXY I10 I35.0 Z95.0 I49.5 I48.0 Office Visit 04/27/2015 10:30a [facility] Joce Cain 10213 Z96.641 MChristo E11.9 I25.10 I35.0 I49.5 I10 R06.00 Office Visit 01/27/2015 9:30a [facility] Paula Cartwrightter, 27792 V54.81 C.M.A. ANP-C Office Visit 10/29/2014 10:52a [facility], 35525 414.00 Hospitalists N.P. 428.0 V43.64 250.00 Office Visit 10/28/2014 10:51a [facility], ORNAMENTAL PAINTER 15129 414.00 Assoc, Hospitalists 428.0 250.00 V43.64 Office Visit 10/27/2014 10:50a [facility], ORNAMENTAL PAINTER 98054 414.00 Assoc, Hospitalists 428.0 V43.64 250.00 Office Visit 10/26/2014 10:50a [facility], ORNAMENTAL PAINTER 36705 414.00 Assoc, Hospitalists 414.00 428.0 428.0 250.00 V43.64 V43.64 Office Visit 10/25/2014 10:49a [facility], [facility], 74560 428.0 Hospitalists N.P. 414.00 V43.64 250.00 Office Visit 09/01/2014 10:15a [facility] Husam Low, 55089 427.81 Bottom Precipitator Operator M.DJailyn 427.31 425.9 Office Visit 08/26/2014 9:30a [facility] Paula Geronimo, 24751 719.45 C.M.A. ANP-C Office Visit 08/01/2014 3:40p [facility] Joce Cain, 04500 427.31 M.DJailyn 458.9 427.81 425.9 Office Visit 07/08/2014 10:00a [facility] Paula Geronimo, 45405 820.8 C.M.A. ANP-C Office Visit 07/02/2014 1:13p [facility] Radha Ray M.D. 18802 427.31 Bottom Precipitator Operator 458.9 Office Visit 06/30/2014 1:10p [facility] Mitchel Rivas M.D., 41867 786.50 Bottom Precipitator Operator AT [facility], FSCAI 410.70 414.9 425.4 Office Visit 06/29/2014 9:13a [facility] Joce Cain, 74274 427.31 M.D. 428.0 410.70 Office Visit 06/28/2014 3:14p [facility] Gwen Rivas M.D., 22561 414.9 Bottom Precipitator Operator AT [facility], [facility] 425.4 Office Visit 06/27/2014 11:06a [facility],delfino Becker D.O. 90180 486 Hospitalists 427.31 279.9 203.00 Office Visit 06/27/2014 3:10p [facility] Gwen Rivas M.D., 13859 410.70 Bottom Precipitator Operator AT [facility], [facility] 427.31 Office Visit 06/26/2014 11:05a [facility],delfino Becker D.O. 41744 486 Hospitalists 427.31 279.9 203.00 Office Visit 06/26/2014 2:22p [facility] Joce Cain, 93139 427.31 M.DJailyn 794.31 426.82 Office Visit 06/25/2014 11:05a [facility],delfino Becker D.O. 09194 486 Hospitalists 427.31 279.9 790.6 Office Visit 06/25/2014 2:13p [facility] Joce Cain, 36646 427.31 M.D. 414.9 Office Visit 06/24/2014 3:12p [facility] Gwen Rivas M.D., 18520 790.99 Bottom Precipitator Operator AT [facility], [facility] 458.9 427.31 Office Visit 06/24/2014 11:03a [facility] [place], [address] 518.81 Assoc, Hospitalists Maureen 038.9 482.9 496 Office Visit 06/24/2014 11:03a [facility],pc Bolivar Becker D.O. 59985 785.50 Hospitalists 518.81 790.6 427.31 Office Visit 05/27/2014 9:30a [facility] Dameon Chavarria M.D. 83342 820.8 C.M.A. Office Visit 03/25/2014 9:30a [facility] Dameon Chavarria M.D. 23355 820.8 C.M.A. Office Visit 03/21/2014 10:30a [facility] MARQUITA Joshi 84519 401.9 Bottom Precipitator Operator 427.31 428.0 414.00 780.2 Office Visit 02/10/2014 10:20a [facility] Joce Cain M.D. 88653 401.9 428.0 414.00 427.31 458.9 780.2 424.1 Office Visit 01/28/2014 8:45a [facility] Dameon Chavarria M.D. 15677 820.8 C.M.A. Office Visit 01/13/2014 3:00p [facility] MARQUITA Joshi 71445 401.9 428.0 414.00 427.31 Office Visit 12/16/2013 2:00p [facility] MARQUITA Joshi 62898MKU 427.31 Bottom Precipitator Operator 428.0 414.00 401.9 Office Visit 12/02/2013 12:00p [facility] Joce Cain 57012 427.31 M.D. 428.0 414.00 458.9 Office Visit 10/25/2013 4:00p [facility], Jessie Connors, 37738 427.31 Hospitalists M.D. 428.0 414.00 401.9 Office Visit 10/24/2013 3:59p [facility], Jessie Connors, 95169 427.31 Hospitalists M.D. 428.0 414.00 401.9 Office Visit 10/23/2013 3:58p [facility], Jessie Connors, 92353 427.31 Hospitalists M.D. 428.0 414.00 401.9 Office Visit 10/23/2013 1:00p [facility] Husam Low 87052 427.31 Bottom Precipitator Operator M.D. Office Visit 10/22/2013 11:23a [facility] Joce Cain, 72233 428.0 M.D. 427.31 414.9 Office Visit 10/22/2013 [facility] 63249 427.31 Assoc,pc Hospitalists N.P. 428.0 414.00 401.9 Plan of Care Future Appointment(s):03/23/2018 7:40 am - [facility] - Dakota Fisher, PAK42.9 Umbilical hernia without obstruction or gangreneFollow up:As [id number] Encounter for removal of sutures
[2018-01-19 12:29] LABS: INR 3.98 (0.77-1.02)
[2018-01-19 12:30] LABS: EGFR Non-African American 63.2 (>60)
--- NOTE | 2018-01-19 12:51 | RAD ---
Indication: Sepsis. Single frontal view of the chest performed at 1228 hours was reviewed. Comparison is made with previous exam dated April 09, 2017. No mediastinal shift is noted. Heart is of normal size and configuration. Lung lopez appear clear. Pacemaker leads are in place. Old rib fractures in the left posterior ribs are noted. IMPRESSION: NO ACTIVE CARDIOPULMONARY DISEASE IS NOTED.
[2018-01-19] MEDS ORDERED: Metoprolol Tartrate IV* 1 MG/ML 5 ML VIAL IV ONE ×2 (13:35→19:05)
[2018-01-19] MEDS ORDERED: cefTRIAXone(*) 2 GM in NS 0.9% 100 ML* 100 ML IVPB ONE (13:37)
[2018-01-19 14:52] LABS: Urine Appearance Cloudy; Urine Blood 2+ (Negative); Urine Color Yellow; Urine Ketones Negative (Negative); Urine Protein 2+(100 mg/dL) (Negative); Urine Red Blood Cell 3+(>10/hpf) (Absent); Urine Specific Gravity 1.017 (1.010-1.030); Urine Urobilinogen Negative (Negative); Urine White Blood Cell 3+(>20/hpf) (Absent)
[2018-01-19] MEDS ORDERED: Cyclobenzaprine TAB* 10 MG PO PRN (15:58)
[2018-01-19] MEDS ORDERED: Docusate CAP* 100 MG PO PRN (15:58)
[2018-01-19] MEDS ORDERED: Warfarin TAB(*) 4 MG PO SCH (16:00)
[2018-01-19] MEDS ORDERED: Diltiazem DRIP* 100 MG/100 ML ADDV.BAG IVPB ONE (16:05)
[2018-01-19] MEDS ORDERED: PROCHLORPERAZINE INJ 5 MG/ML 2 ML VIAL IV PRN (16:07)
[2018-01-19] MEDS ORDERED: Acetaminophen TAB* 325 MG PO PRN (16:07)
[2018-01-19] MEDS ORDERED: Dextrose 50% Syringe 50 ML* 25 GM/50 ML SYRINGE IV PUSH PRN (16:11)
[2018-01-19] MEDS ORDERED: Diltiazem IV VIAL* 125 MG in NS 0.9% 100 ML* 100 ML IVPB ONE (16:30)
[2018-01-19] MEDS: Insulin LISPRO* 1 UNITS UNIT SUBCUT SCH ×2 (17:31→22:01)
[2018-01-19] MEDS: oxyCODONE TAB* 5 MG TAB PO PRN (18:54)
[2018-01-19] MEDS ORDERED: Metoprolol Tartrate IV* 1 MG/ML 5 ML VIAL ONE (19:05)
[2018-01-19] MEDS ORDERED: Magnesium Sulfate IV* 3 GM in NS 0.9% 100 ML* 100 ML IVPB ONE (20:00)
[2018-01-19] MEDS ORDERED: Amiodarone 150 MG IVPREMIX* 150 MG/100 ML BAG IV ONE ×2 (20:00→20:08)
[2018-01-19] MEDS ORDERED: Amiodarone 360 MG IVPREMIX* 360 MG/200 ML BAG IV ONE (20:00)
--- NOTE | 2018-01-19 20:04 | PN ---
Progress Note - Progress Note Date of Service: 01/19/18 Note: Despite several diltiazem bolus', drip at 15 mg/hr and lopressor IV patient remains in rapid afib, HR 140s-150s. Also febrile and tachypneic on oxymask, sats in mid 90's. Denies any compliants. Appears to be sepsis from UTI driving his afib. On ceftriaxone. Will change his diltiazem to amiodarone this evening. Patient therapuetic on coumadin. Denies chest pain. Will also replete his magnesium.
[2018-01-19] MEDS: NS 0.9% 1000 ML* 1,000 ML IV SCH (20:35)
--- NOTE | 2018-01-19 20:41 | HP ---
CC: Dr. Watt; Dr. Whitmore * HISTORY AND PHYSICAL: DATE OF ADMISSION: 01/19/18 TIME OF EVALUATION: 3:44 p.m. PRIMARY CARE PROVIDER: Dr. Watt. ONCOLOGIST: Dr. Whitmore. CHIEF COMPLAINT: "I don't feel well." HISTORY OF PRESENT ILLNESS: Mr. Ferreira is a 67-year-old male with a past medical history of multiple myeloma, receiving chemotherapy mostly; atrial fibrillation; congestive heart failure; coronary artery disease; type 2 diabetes ; GERD; hyperlipidemia; hypertension; osteoarthritis; PE; peptic ulcer disease; sleep apnea; obesity with a BMI of 31; COPD, who presented to the emergency room with complaints of not feeling well for the past 3 days. He states that he has had dysuria, increased frequency associated with body aches and malaise. He states that his highest temperature at home was 99. He also had some nausea, but no vomiting. He denies chest pain or palpitations and states that as he is always in atrial fibrillation, he is not aware of the rhythm. He went to see his primary care provider today and he was advised to come to the emergency room for further evaluation. He states that his last chemotherapy was 2 weeks ago and he is due to receive chemotherapy in 2 weeks. PAST MEDICAL HISTORY: 1. Multiple myeloma. 2. Atrial fibrillation. 3. Systolic congestive heart failure with ejection fraction of 35% to 40% on last echo in June 2014. 4. Coronary artery disease, status post stent to the LAD. 5. Type 2 diabetes. 6. GERD. 7. Hyperlipidemia. 8. Hypertension. 9. Osteoarthritis. 10. History of pathologic fracture of the left hip and pelvic fracture. 11. History of PE in June 2016. 12. Peptic ulcer disease. 13. Sleep apnea. 14. Obesity with a BMI of 31. 15. COPD. PAST SURGICAL HISTORY: 1. Status post colostomy. 2. Status post bilateral knee arthroscopy. 3. Status post tonsillectomy. 4. Status post pacemaker. MEDICATION LIST: 1. Atorvastatin 20 mg p.o. daily. 2. Calcium carbonate 500 mg p.o. daily. 3. Cholecalciferol 3000 units p.o. daily. 4. Vitamin B12 of 1000 mcg p.o. daily. 5. Cyclobenzaprine 10 mg p.o. b.i.d. p.r.n. muscle spasms. 6. Digoxin 0.125 mg p.o. daily. 7. Cardizem CD 240 mg p.o. daily. 8. Colace 200 mg p.o. b.i.d. as needed for constipation. 9. Ferrous sulfate 325 mg p.o. t.i.d. 10. Furosemide 10 mg p.o. daily. 11. Gabapentin 300 mg p.o. at bedtime. 12. Glipizide 5 mg p.o. daily. 13. Ferrex 150 mg p.o. b.i.d. 14. Magnesium oxide 500 mg p.o. b.i.d. 15. Metformin 500 mg p.o. b.i.d. 16. Metoprolol succinate 100 mg p.o. daily. 17. Oxycodone 5 mg p.o. q.6 hours p.r.n. pain. 18. Pantoprazole 40 mg p.o. b.i.d. 19. Ramipril 2.5 mg p.o. b.i.d. 20. Sertraline 100 mg p.o. daily. 21. Vitamin E 400 units p.o. daily. 22. Warfarin 4 mg on Sundays, Mondays, Friday, and Fridays and 3 mg on Tuesdays, , and Saturdays. ALLERGIES: To IBUPROFEN and PREGABALIN. FAMILY HISTORY: Sister had a history of stroke. SOCIAL HISTORY: The patient smoked for 30 years a pack a day and he quit 7 years ago. No history of drug or alcohol use. Surrogate decision maker is his partner, Sergey Parsons, phone number is [phone]. REVIEW OF SYSTEMS: A 14-point review of systems was performed and all the pertinent negative and positive findings are in the HPI. PHYSICAL EXAMINATION GENERAL: The patient is a pleasant, elderly gentleman, lying in the ED stretcher, not in acute distress. VITAL SIGNS: Temperature 98.3, heart rate is 107, respiratory rate is 19, oxygen saturation is 97% on room air, blood pressure is 107/68. HEENT: Pupils are equal. Moist mucous membranes. CHEST: Breath sounds bilaterally with no added sounds. CVS: Normal S1 and S2. Irregularly irregular, tachycardic. ABDOMEN: Obese, soft, nontender, nondistended. Bowel sounds are present. EXTREMITIES: No edema. The patient has a vesicular rash on erythematous base on the lateral aspect of his right leg. DIAGNOSTIC STUDIES/LAB DATA: CBC showed WBC of 10, hemoglobin of 14.6, hematocrit of 45, platelets of 146 with 80% neutrophils. INR is 3.9. Chemistry showed a sodium of 138, potassium of 4.1, chloride of 102, bicarb of 27, BUN of 25, creatinine of 1.1, glucose of 285, lactic acid of 2.9, calcium of 9.1. Total bilirubin of 0.9, AST 11, ALT of 14, alk phos of 117. Troponin 0.02. TSH of 4.3. Urinalysis showed 2+ protein, 2+ blood, positive nitrites, 3 + LE, 3+ wbc's, 3+ rbc's. Chest x-ray showed no active cardiopulmonary disease is noted. EKG done on 01/19/18 at 11:42 a.m. showed atrial fibrillation at 183 beats per minute and on his prior EKG in March 2017, he was in AFib, but he had some paced beats and the heart rate was slow that time at 150. His EKG today does show some ST depressions on the anterolateral leads, probably rate related. ASSESSMENT AND PLAN: Mr. Ferreira is a 67-year-old male with a past medical history of multiple myeloma, atrial fibrillation, systolic congestive heart failure, coronary artery disease, diabetes, gastroesophageal reflux disease, hyperlipidemia, hypertension, who presents to the emergency room with complaints of malaise, urinary frequency, found to have a urinary tract infection and atrial fibrillation with rapid ventricular rate. 1. Sepsis. The patient's presentation is compatible with sepsis with his tachycardia. I do not expect the patient should mount significant leukocytosis as he is immunosuppressed due to his multiple myeloma/chemotherapy. Source is urinary tract infection. 2. Urinary tract infection. The patient will receive IV fluid resuscitation and will be continuing ceftriaxone. Renal ultrasound is ordered to look for any signs of obstruction. At this point, he will be continued on ceftriaxone. I am going to follow his cultures. 3. Atrial fibrillation with rapid ventricular rate. In the setting of sepsis, I am going to hold the patient's ramipril, so he can have more ramipril, so we have more blood pressure to continue metoprolol, Cardizem, digoxin, and Cardizem drip for rate control. The patient is already anticoagulated with warfarin. 4. Lactic acidosis. Secondary to sepsis, but also associated with metformin use, so I think it will take longer to clear. We will continue fluids and we will continue to monitor his lactic acid. 5. Coronary artery disease. Appears to be stable at this time. We will continue atorvastatin, metoprolol. 6. Type 2 diabetes. We will continue lispro sliding scale and monitor his fingersticks. 7. Right lower extremity rash. I suspect this is likely herpes simplex reactivation. The patient will receive valacyclovir. 8. DVT prophylaxis. The patient had a score of 5 on the DVT Prophylaxis Risk Assessment Guide and he is already anticoagulated with warfarin. We are going to resume his usual dose when his INR is below 3. 9. Code status was discussed with the patient's significant other and he wishes to be a full code. TIME SPENT: Approximately 60 minutes were spent with patient and partner's interview, medical records review, physical examination to complete the admission; more than half of this time was spent [id number] with the patient and coordination of care. [id number]/[facility] #: [id number] MATT
--- NOTE | 2018-01-19 20:57 | RAD ---
EXAM: US Retroperitoneal Complete CLINICAL HISTORY: 67 years old, male; Condition or disease; Cancer; Other: Multiple myeloma; Additional info: Uti TECHNIQUE: Real-time ultrasound of the retroperitoneum (complete) with image documentation. COMPARISON: RENAL COM US RENAL COMPLETE 11/25/2013 9:10 AM FINDINGS: Aorta: No aneurysm. Common iliac arteries: No aneurysm. Inferior vena cava: Unremarkable. Right kidney: Right kidney measures 9.8 x 5.1 x 5.7 cm. Lower pole cyst measures approximately 5 cm. No hydronephrosis. No stones. Left kidney: Left kidney measures 10.9 x 6.5 x 6.5 cm. No hydronephrosis. No stones. Bladder: Bladder has a normal appearance. IMPRESSION: 1. Right renal cyst measuring approximately 5 cm. 2. Otherwise normal renal ultrasound.
[2018-01-19] MEDS: Gabapentin CAP(*) 300 MG PO SCH (22:01)
[2018-01-19] MEDS: Ferrous Sulfate TAB* 325 MG PO SCH (22:02)
[2018-01-19] MEDS: Omeprazole CAP* 20 MG PO SCH (22:02)
[2018-01-19] MEDS: ValACYclovir (*) 1 GM TAB PO SCH (22:41)
[2018-01-20] MEDS: Amiodarone 360 MG IVPREMIX* 360 MG/200 ML BAG IV SCH ×2 (02:20→14:22)
[2018-01-20 05:23] LABS: Hematocrit 36 % (42-52); Hemoglobin 11.7 g/dl (14.0-18.0); Mean Corpuscular HGB Conc 32 g/dl (31-36); Mean Corpuscular Hemoglobin 25 pg (27-31); Mean Corpuscular Volume 78 fL (80-94); Platelet Count 103 10^3/ul (150-450); Red Blood Count 4.65 10^6/ul (4.00-5.40); Red Cell Distribution Width 18 % (10.5-15); White Blood Count 8.1 10^3/ul (3.5-10.8)
[2018-01-20 05:28] LABS: INR 3.16 (0.77-1.02)
[2018-01-20 05:29] LABS: ABS Basophils 0 10^3/ul (0-0.2); ABS Eosinophils 0 10^3/ul (0-0.6); ABS Lymphocytes 1.5 10^3/ul (1.0-4.8); ABS Monocytes 1.1 10^3/ul (0-0.8); ABS Neutrophils 5.9 10^3/ul (1.5-7.7); ABS Nucleated RBC 0 10^3/ul; Eosinophil % 0.5 % (0-6); Lymphocyte % 17.2 % (25-47); Nucleated Red Blood Cells % 0
[2018-01-20 05:41] LABS: EGFR Non-African American 73.5 (>60)
[2018-01-20] MEDS: Calcium Carbonate TAB* 1250 MG (CALCIUM 500 MG) PO SCH (08:50)
[2018-01-20] MEDS: Digoxin TAB* 0.125 MG PO SCH (08:50)
[2018-01-20] MEDS: Metoprolol Succinate XL TAB* 100 MG PO SCH (08:50)
[2018-01-20] MEDS: Insulin LISPRO* 1 UNITS UNIT SUBCUT SCH ×4 (08:50→21:13)
[2018-01-20] MEDS: Atorvastatin* 20 MG TAB PO SCH (08:51)
[2018-01-20] MEDS: Diltiazem CD CAP* 240 MG PO SCH (08:51)
[2018-01-20] MEDS: Vitamin E CAP* 400 UNIT PO SCH (08:51)
[2018-01-20] MEDS: Ferrous Sulfate TAB* 325 MG PO SCH ×3 (08:51→21:12)
[2018-01-20] MEDS: Omeprazole CAP* 20 MG PO SCH ×2 (08:51→21:12)
[2018-01-20] MEDS: Cyanocobalamin TAB* 500 MCG PO SCH (08:51)
[2018-01-20] MEDS: Sertraline* 100 MG TAB PO SCH (08:51)
[2018-01-20] MEDS: ValACYclovir (*) 1 GM TAB PO SCH ×2 (08:52→21:12)
[2018-01-20] MEDS: NS 0.9% 1000 ML* 1,000 ML IV SCH ×2 (08:55→10:00)
--- NOTE | 2018-01-20 10:12 | PN ---
Subjective Date of Service: 01/20/18 Interval History: HOSPITALIST PROGRESS NOTE Patient seen and examined at bedside. Care reviewed and d/w Maddy Fletcher RN. He feels better today. Denies chest pain, palpitations, dyspnea, even when his heart was >150 yesterday. Urinary symptoms are less intense. Denies N/V. Family History: Unchanged from Admission Social History: Unchanged from Admission Past Medical History: Unchanged from Admission Objective Active Medications: Acetaminophen (Tylenol Tab*) 650 mg PO Q6H PRN PRN Reason: pain/fever Atorvastatin Calcium (Lipitor*) 20 mg PO DAILY [facility] Last Admin: 01/20/18 08:51 Dose: 20 mg Calcium Carbonate (Calcium Carbonate Tab*) 500 mg PO DAILY [facility] Last Admin: 01/20/18 08:50 Dose: 500 mg Cyanocobalamin (Vitamin B12 Tab*) 1,000 mcg PO DAILY [facility] Last Admin: 01/20/18 08:51 Dose: 1,000 mcg Cyclobenzaprine HCl (Flexeril Tab*) 10 mg PO BID PRN PRN Reason: SPASMS - MUSCLE Dextrose (D50w Syringe 50 Ml*) 12.5 gm IV PUSH .FOR FS < 60 - SS PRN PRN Reason: FS < 60 Digoxin (Lanoxin Tab*) 0.125 mg PO DAILY [facility] Last Admin: 01/20/18 08:50 Dose: 0.125 mg Diltiazem HCl (Cardizem Cd Cap*) 240 mg PO DAILY [facility] Last Admin: 01/20/18 08:51 Dose: 240 mg Docusate Sodium (Colace Cap*) 200 mg PO BID PRN PRN Reason: CONSTIPATION Ferrous Sulfate (Ferrous Sulfate Tab*) 325 mg PO TID [facility] Last Admin: 01/20/18 08:51 Dose: 325 mg Gabapentin (Neurontin Cap(*)) 300 mg PO BEDTIME [facility] Last Admin: 01/19/18 22:01 Dose: 300 mg Ceftriaxone Sodium 1 gm/ (Sodium Chloride) 50 mls @ 200 mls/hr IVPB Q24H [facility] Sodium Chloride (Ns 0.9% 1000 Ml*) 1,000 mls @ 100 mls/hr IV PER RATE [facility] Last Admin: 01/20/18 08:55 Dose: 100 mls/hr Amiodarone HCl (Nexterone 360 Mg/200 Ml Ivpremix*) 360 mg in 200 mls @ 16.667 mls/hr IV .SEE PROTOCOL [facility] Last Admin: 01/20/18 02:20 Dose: 16.667 mls/hr Insulin Human Lispro (Humalog*) 0 units SUBCUT ACHS [facility]; Protocol Last Admin: 01/20/18 08:50 Dose: 3 units Metoprolol Succinate (Toprol Xl Tab*) 100 mg PO DAILY [facility] Last Admin: 01/20/18 08:50 Dose: 100 mg Omeprazole (Prilosec Cap*) 20 mg PO BID [facility] Last Admin: 01/20/18 08:51 Dose: 20 mg Oxycodone HCl (Roxycodone Tab*) 5 mg PO Q6HR PRN PRN Reason: PAIN Last Admin: 01/19/18 18:54 Dose: 5 mg Pharmacy Profile Note (Coumadin Daily Reminder*) 0 note FOLLOW UP 1700 [facility] Last Admin: 01/19/18 18:30 Dose: Not Given Prochlorperazine Edisylate (Compazine Inj*) 5 mg IV Q6H PRN PRN Reason: NAUSEA/VOMITING Sertraline HCl (Zoloft*) 100 mg PO DAILY [facility] Last Admin: 01/20/18 08:51 Dose: 100 mg Valacyclovir HCl (Valtrex 1 Gm(*)) 1 gm PO BID [facility]; Protocol Last Admin: 01/20/18 08:52 Dose: 1 gm Vitamin E (Vitamin E Cap*) 400 unit PO DAILY [facility] Last Admin: 01/20/18 08:51 Dose: 400 unit Vital Signs - 8 hr 01/20/18 01/20/18 01/20/18 02:15 02:30 02:45 Temperature Pulse Rate 105 100 87 Respiratory 25 12 7 Rate Blood Pressure 112/70 93/63 88/59 (mmHg) O2 Sat by Pulse 95 95 95 Oximetry 01/20/18 01/20/18 01/20/18 02:47 02:52 03:00 Temperature Pulse Rate 95 81 Respiratory 17 23 20 Rate Blood Pressure 99/68 107/56 (mmHg) O2 Sat by Pulse 96 95 Oximetry 01/20/18 01/20/18 01/20/18 03:15 03:28 03:30 Temperature Pulse Rate 94 130 Respiratory 21 16 25 Rate Blood Pressure 117/65 122/74 (mmHg) O2 Sat by Pulse 95 94 Oximetry 01/20/18 01/20/18 01/20/18 03:45 04:00 04:15 Temperature 97.5 F Pulse Rate 100 98 93 Respiratory 14 12 29 Rate Blood Pressure 105/67 104/67 114/61 (mmHg) O2 Sat by Pulse 99 99 99 Oximetry 01/20/18 01/20/18 01/20/18 04:30 04:45 05:00 Temperature Pulse Rate 91 89 94 Respiratory 19 22 28 Rate Blood Pressure 112/65 119/59 (mmHg) O2 Sat by Pulse 99 99 97 Oximetry 01/20/18 01/20/18 01/20/18 05:01 05:15 05:30 Temperature Pulse Rate 94 94 91 Respiratory 24 16 19 Rate Blood Pressure 120/67 115/75 120/64 (mmHg) O2 Sat by Pulse 99 98 99 Oximetry 01/20/18 01/20/18 01/20/18 05:45 06:00 06:30 Temperature Pulse Rate 88 88 90 Respiratory 13 18 14 Rate Blood Pressure 112/69 107/70 119/66 (mmHg) O2 Sat by Pulse 99 98 96 Oximetry 01/20/18 01/20/18 01/20/18 06:45 07:00 07:15 Temperature Pulse Rate 83 81 91 Respiratory 3 28 24 Rate Blood Pressure 114/61 127/69 125/79 (mmHg) O2 Sat by Pulse 96 96 98 Oximetry 01/20/18 01/20/18 01/20/18 07:21 07:30 07:47 Temperature 97 F Pulse Rate 91 116 Respiratory 24 19 Rate Blood Pressure 125/75 124/73 (mmHg) O2 Sat by Pulse 98 95 Oximetry 01/20/18 01/20/18 01/20/18 08:00 08:15 08:30 Temperature Pulse Rate 94 106 113 Respiratory 20 18 27 Rate Blood Pressure 114/83 130/78 121/76 (mmHg) O2 Sat by Pulse 93 93 93 Oximetry 01/20/18 01/20/18 01/20/18 08:45 08:50 09:00 Temperature Pulse Rate 96 122 121 Respiratory 25 18 Rate Blood Pressure 126/70 (mmHg) O2 Sat by Pulse 94 95 Oximetry 01/20/18 01/20/18 01/20/18 09:01 09:16 09:30 Temperature Pulse Rate 111 107 100 Respiratory 21 26 28 Rate Blood Pressure 133/91 96/73 (mmHg) O2 Sat by Pulse 92 96 95 Oximetry 01/20/18 01/20/18 09:31 09:47 Temperature Pulse Rate 99 91 Respiratory 23 30 Rate Blood Pressure 107/66 139/98 (mmHg) O2 Sat by Pulse 95 97 Oximetry Oxygen Devices in Use Now: Nasal Cannula - 2 liters Appearance: Pleasant elderly gentleman sitting up in a chair in NAD. Eyes: No Scleral Icterus Ears/Nose/Mouth/Throat: Mucous Membranes Moist Neck: Trachea Midline Respiratory: Symmetrical Chest Expansion and Respiratory Effort, Clear to Auscultation Cardiovascular: - - Normal S1 and S2, irregularly irregular Neurological: Alert and Oriented x 3, NL Muscle Strength and Tone Result Diagrams: 01/20/18 05:07 01/20/18 05:07 Diagnostic Imaging: Patient Name: KELSI FERREIRA Medical Record#: [id number] Ordering Physician: Jessie Antonio MD Acct.#: [id number] : 1950 Age: 67 Sex: M Location: [facility] Exam Date: 01/19/181612 ADM Status: ADM IN Order Information: US RENAL AND BLADDER Accession Number: [id number] CPT: 26929 EXAM: US Retroperitoneal Complete CLINICAL HISTORY: 67 years old, male; Condition or disease; Cancer; Other: Multiple myeloma; Additional info: Uti TECHNIQUE: Real-time ultrasound of the retroperitoneum (complete) with image documentation. COMPARISON: RENAL COM US RENAL COMPLETE 11/25/2013 9:10 AM FINDINGS: Aorta: No aneurysm. Common iliac arteries: No aneurysm. Inferior vena cava: Unremarkable. Right kidney: Right kidney measures 9.8 x 5.1 x 5.7 cm. Lower pole cyst measures approximately 5 cm. No hydronephrosis. No stones. Left kidney: Left kidney measures 10.9 x 6.5 x 6.5 cm. No hydronephrosis. No stones. Bladder: Bladder has a normal appearance. IMPRESSION: 1. Right renal cyst measuring approximately 5 cm. 2. Otherwise normal renal ultrasound. <Electronically signed by Mike Sloan MD in OV> 01/19/182056 Dictated By: Mike Sloan MD Dictated Date/Time: 01/19/182056 Transcribed Date/Time: Copy to: CC:Jessie Antonio MD; Marcin Watt MD Imaging - [facility] Imaging - [facility] Imaging - [facility] [address] [place] [id number] [place] [id number] [place] [id number] This report is only to be considered final once signed by the Provider(s) as displayed in the "<Electronically Signed by >" field (s). Absence of a signature indicates the report is in a draft status and still needs to be finalized. In the event this document was created by someone other than the signing Provider, the individual initiating the document will be listed in the "Entered by:" or "Dictated by:" lopez. 1 of 2 Assess/Plan/Problems-Billing Assessment: Mr Ferreira is a 67yo M with PMH of multiple myeloma, Afib, systolic CHF, CAD s/p stent, type 2 DM, HTN, HLD, GERD, PE, PUD, COPD, obesity with BMI 32, who presented to ED with c/o dysuria and malaise, found to have sepsis secondary to UTI. - Patient Problems (1) Sepsis Comment: - Presentation compatible with sepsis on admission with tachycardia. Patient is immunnosuppressed due to MM/chemotherapy, would not be able to mount a classic sepsis response. - Source is urinary tract infection. - Continue IVF. (2) UTI (urinary tract infection) Comment: - Continue Ceftriaxone and follow cultures. - US was negative for nephrolithiasis and hydronephrosis. (3) Atrial fibrillation with rapid ventricular response Comment: - Rate difficult to control in the setting of sepsis - d/w Cardiology - recommended continuation of current regimen - his usual digoxin, diltiazem, metoprolol, plus amiodarone drip. - As infection improves, HR should trend back down to his baseline. - Resume Warfarin and monitor INR. (4) Lactic acidosis Comment: - Secondary to sepsis and metformin use. - Resolved. (5) Type 2 diabetes mellitus Comment: - Glipizide and metformin on hold for now - Continue Lispro SS. (6) DVT prophylaxis Comment: - Resume Warfarin. (7) Full code status Status and Disposition: Inpatient. Continue to monitor in ICU.
[2018-01-20] MEDS: cefTRIAXone(*) 1 GM in NS 0.9% 50 ML* 50 ML IVPB SCH (13:03)
[2018-01-20] MEDS ORDERED: Warfarin TAB(*) 3 MG PO SCH (15:58)
[2018-01-20] MEDS ORDERED: Warfarin TAB(*) 3 MG PO ONE (17:00)
[2018-01-20] MEDS: oxyCODONE TAB* 5 MG TAB PO PRN (18:22)
[2018-01-20] MEDS: Gabapentin CAP(*) 300 MG PO SCH (21:12)
--- NOTE | 2018-01-20 22:55 | PN ---
Progress Note - Progress Note Date of Service: 01/20/18 Note: Amiodarone drip complete - transitioned to Amiodarone 200 mg PO BID. Follow up with day team regarding if this should be continued.
[2018-01-21] MEDS: Amiodarone TAB* 200 MG PO SCH ×3 (02:08→21:14)
[2018-01-21 05:02] LABS: INR 2.68 (0.77-1.02)
[2018-01-21 05:03] LABS: Hematocrit 34 % (42-52); Hemoglobin 10.9 g/dl (14.0-18.0); Mean Corpuscular HGB Conc 32 g/dl (31-36); Mean Corpuscular Hemoglobin 25 pg (27-31); Mean Corpuscular Volume 78 fL (80-94); Mean Platelet Volume 8.5 um3 (7.4-10.4); Platelet Count 94 10^3/ul (150-450); Red Blood Count 4.36 10^6/ul (4.00-5.40); Red Cell Distribution Width 18 % (10.5-15); White Blood Count 5.6 10^3/ul (3.5-10.8)
[2018-01-21 05:17] LABS: EGFR Non-African American 83.9 (>60)
[2018-01-21 05:23] LABS: ABS Basophils 0 10^3/ul (0-0.2); ABS Eosinophils 0.1 10^3/ul (0-0.6); ABS Lymphocytes 1.2 10^3/ul (1.0-4.8); ABS Monocytes 0.7 10^3/ul (0-0.8); ABS Neutrophils 3.6 10^3/ul (1.5-7.7); ABS Nucleated RBC 0 10^3/ul; Eosinophil % 2.2 % (0-6); Lymphocyte % 20.9 % (25-47); Nucleated Red Blood Cells % 0.1
[2018-01-21] MEDS: Insulin LISPRO* 1 UNITS UNIT SUBCUT SCH ×4 (08:24→21:12)
[2018-01-21] MEDS: Vitamin E CAP* 400 UNIT PO SCH (08:25)
[2018-01-21] MEDS: Digoxin TAB* 0.125 MG PO SCH (08:25)
[2018-01-21] MEDS: Cyanocobalamin TAB* 500 MCG PO SCH (08:25)
[2018-01-21] MEDS: Ferrous Sulfate TAB* 325 MG PO SCH ×3 (08:25→21:14)
[2018-01-21] MEDS: Atorvastatin* 20 MG TAB PO SCH (08:25)
[2018-01-21] MEDS: Diltiazem CD CAP* 240 MG PO SCH (08:25)
[2018-01-21] MEDS: ValACYclovir (*) 1 GM TAB PO SCH ×2 (08:25→21:14)
[2018-01-21] MEDS: Metoprolol Succinate XL TAB* 100 MG PO SCH (08:25)
[2018-01-21] MEDS: Omeprazole CAP* 20 MG PO SCH ×2 (08:26→21:14)
[2018-01-21] MEDS: Calcium Carbonate TAB* 1250 MG (CALCIUM 500 MG) PO SCH (08:26)
[2018-01-21] MEDS: Sertraline* 100 MG TAB PO SCH (08:26)
[2018-01-21] MEDS: NS 0.9% 1000 ML* 1,000 ML IV SCH (10:43)
--- NOTE | 2018-01-21 10:51 | PN ---
Subjective Date of Service: 01/21/18 Interval History: HOSPITALIST PROGRESS NOTE Patient seen and examined at bedside. Care reviewed and d/w Maddy Fletcher RN. He feels well today. Denies palpitations, dyspnea, urinary symptoms are much improved. Family History: Unchanged from Admission Social History: Unchanged from Admission Past Medical History: Unchanged from Admission Objective Active Medications: Acetaminophen (Tylenol Tab*) 650 mg PO Q6H PRN PRN Reason: pain/fever Amiodarone HCl (Cordarone Tab*) 200 mg PO BID [facility] Last Admin: 01/21/18 08:25 Dose: 200 mg Atorvastatin Calcium (Lipitor*) 20 mg PO DAILY [facility] Last Admin: 01/21/18 08:25 Dose: 20 mg Calcium Carbonate (Calcium Carbonate Tab*) 500 mg PO DAILY [facility] Last Admin: 01/21/18 08:26 Dose: 500 mg Cyanocobalamin (Vitamin B12 Tab*) 1,000 mcg PO DAILY [facility] Last Admin: 01/21/18 08:25 Dose: 1,000 mcg Cyclobenzaprine HCl (Flexeril Tab*) 10 mg PO BID PRN PRN Reason: SPASMS - MUSCLE Dextrose (D50w Syringe 50 Ml*) 12.5 gm IV PUSH .FOR FS < 60 - SS PRN PRN Reason: FS < 60 Digoxin (Lanoxin Tab*) 0.125 mg PO DAILY [facility] Last Admin: 01/21/18 08:25 Dose: 0.125 mg Diltiazem HCl (Cardizem Cd Cap*) 240 mg PO DAILY [facility] Last Admin: 01/21/18 08:25 Dose: 240 mg Docusate Sodium (Colace Cap*) 200 mg PO BID PRN PRN Reason: CONSTIPATION Ferrous Sulfate (Ferrous Sulfate Tab*) 325 mg PO TID [facility] Last Admin: 01/21/18 08:25 Dose: 325 mg Gabapentin (Neurontin Cap(*)) 300 mg PO BEDTIME [facility] Last Admin: 01/20/18 21:12 Dose: 300 mg Ceftriaxone Sodium 1 gm/ (Sodium Chloride) 50 mls @ 200 mls/hr IVPB Q24H [facility] Last Admin: 01/20/18 13:03 Dose: 200 mls/hr Sodium Chloride (Ns 0.9% 1000 Ml*) 1,000 mls @ 75 mls/hr IV PER RATE [facility] Last Admin: 01/21/18 10:43 Dose: 75 mls/hr Insulin Human Lispro (Humalog*) 0 units SUBCUT ACHS [facility]; Protocol Last Admin: 01/21/18 08:24 Dose: 3 units Metoprolol Succinate (Toprol Xl Tab*) 100 mg PO DAILY [facility] Last Admin: 01/21/18 08:25 Dose: 100 mg Omeprazole (Prilosec Cap*) 20 mg PO BID [facility] Last Admin: 01/21/18 08:26 Dose: 20 mg Oxycodone HCl (Roxycodone Tab*) 5 mg PO Q6HR PRN PRN Reason: PAIN Last Admin: 01/20/18 18:22 Dose: 5 mg Pharmacy Profile Note (Coumadin Daily Reminder*) 0 note FOLLOW UP 1700 [facility] Last Admin: 01/20/18 17:25 Dose: Not Given Prochlorperazine Edisylate (Compazine Inj*) 5 mg IV Q6H PRN PRN Reason: NAUSEA/VOMITING Sertraline HCl (Zoloft*) 100 mg PO DAILY [facility] Last Admin: 01/21/18 08:26 Dose: 100 mg Valacyclovir HCl (Valtrex 1 Gm(*)) 1 gm PO BID [facility]; Protocol Last Admin: 01/21/18 08:25 Dose: 1 gm Vitamin E (Vitamin E Cap*) 400 unit PO DAILY [facility] Last Admin: 01/21/18 08:25 Dose: 400 unit Vital Signs - 8 hr 01/21/18 01/21/18 01/21/18 03:00 03:15 03:30 Temperature Pulse Rate 84 88 81 Respiratory 23 25 23 Rate Blood Pressure 127/74 140/92 130/81 (mmHg) O2 Sat by Pulse 97 97 98 Oximetry 01/21/18 01/21/18 01/21/18 03:45 04:00 04:15 Temperature 98.7 F Pulse Rate 85 99 76 Respiratory 23 25 23 Rate Blood Pressure 137/85 163/97 135/76 (mmHg) O2 Sat by Pulse 97 97 98 Oximetry 01/21/18 01/21/18 01/21/18 04:30 04:45 05:00 Temperature Pulse Rate 80 95 88 Respiratory 22 26 24 Rate Blood Pressure 132/70 147/98 142/75 (mmHg) O2 Sat by Pulse 98 97 98 Oximetry 01/21/18 01/21/18 01/21/18 05:15 05:30 05:45 Temperature Pulse Rate 80 82 81 Respiratory 22 24 22 Rate Blood Pressure 143/75 133/89 133/71 (mmHg) O2 Sat by Pulse 97 98 98 Oximetry 01/21/18 01/21/18 01/21/18 05:55 06:00 06:15 Temperature Pulse Rate 86 78 Respiratory 22 23 22 Rate Blood Pressure 152/74 128/78 (mmHg) O2 Sat by Pulse 97 97 Oximetry 01/21/18 01/21/18 01/21/18 06:30 06:46 07:00 Temperature Pulse Rate 86 82 87 Respiratory 25 22 22 Rate Blood Pressure 149/83 139/83 (mmHg) O2 Sat by Pulse 96 98 98 Oximetry 01/21/18 01/21/18 01/21/18 07:02 07:15 07:30 Temperature Pulse Rate 76 83 Respiratory 23 23 23 Rate Blood Pressure 149/85 152/73 (mmHg) O2 Sat by Pulse 98 98 98 Oximetry 01/21/18 01/21/18 01/21/18 07:45 07:56 08:00 Temperature 97.2 F Pulse Rate 76 78 Respiratory 22 22 Rate Blood Pressure 131/77 138/73 (mmHg) O2 Sat by Pulse 98 98 Oximetry 01/21/18 01/21/18 01/21/18 08:15 08:25 09:55 Temperature 97.6 F Pulse Rate 86 81 102 Respiratory 25 18 Rate Blood Pressure 146/99 153/72 (mmHg) O2 Sat by Pulse 98 95 Oximetry Oxygen Devices in Use Now: None Appearance: Pleasant gentleman sitting up in bed in NAD. Eyes: No Scleral Icterus Ears/Nose/Mouth/Throat: Mucous Membranes Moist Neck: Trachea Midline Respiratory: Symmetrical Chest Expansion and Respiratory Effort, Clear to Auscultation Cardiovascular: - - Normal S1 and S2, irregularly irregular Abdominal: NL Sounds; No Tenderness; No Distention Extremities: - - Mild bilateral LE edema Neurological: Alert and Oriented x 3, NL Muscle Strength and Tone Result Diagrams: 01/21/18 04:46 01/21/18 04:46 Diagnostic Imaging: Patient Name: KELSI FERREIRA Medical Record#: [id number] Ordering Physician: Jessie Antonio MD Acct.#: [id number] : 1950 Age: 67 Sex: M Location: [facility] Exam Date: 01/19/18 1613 ADM Status: ADM IN Order Information: US RENAL AND BLADDER Accession Number: [id number] CPT: 30504 EXAM: US Retroperitoneal Complete CLINICAL HISTORY: 67 years old, male; Condition or disease; Cancer; Other: Multiple myeloma; Additional info: Uti TECHNIQUE: Real-time ultrasound of the retroperitoneum (complete) with image documentation. COMPARISON: RENAL COM US RENAL COMPLETE 11/25/2013 9:10 AM FINDINGS: Aorta: No aneurysm. Common iliac arteries: No aneurysm. Inferior vena cava: Unremarkable. Right kidney: Right kidney measures 9.8 x 5.1 x 5.7 cm. Lower pole cyst measures approximately 5 cm. No hydronephrosis. No stones. Left kidney: Left kidney measures 10.9 x 6.5 x 6.5 cm. No hydronephrosis. No stones. Bladder: Bladder has a normal appearance. IMPRESSION: 1. Right renal cyst measuring approximately 5 cm. 2. Otherwise normal renal ultrasound. <Electronically signed by Mike Sloan MD in OV> 01/19/182056 Dictated By: Mike Sloan MD Dictated Date/Time: 01/19/182056 Transcribed Date/Time: Copy to: CC:Jessie Antonio MD; Marcin Watt MD Imaging - [facility] Imaging - [facility] [address] [place] [address] This report is only to be considered final once signed by the Provider(s) as displayed in the "<Electronically Signed by >" field (s). Absence of a signature indicates the report is in a draft status and still needs to be finalized. In the event this document was created by someone other than the signing Provider, the individual initiating the document will be listed in the "Entered by:" or "Dictated by:" lopez. 1 of 2 Assess/Plan/Problems-Billing Assessment: Mr Ferreira is a 67yo M with PMH of multiple myeloma, Afib, systolic CHF, CAD s/p stent, type 2 DM, HTN, HLD, GERD, PE, PUD, COPD, obesity with BMI 32, who presented to ED with c/o dysuria and malaise, found to have sepsis secondary to UTI. - Patient Problems (1) Sepsis Comment: - Presentation compatible with sepsis on admission with tachycardia. Patient is immunnosuppressed due to MM/chemotherapy, would not be able to mount a classic sepsis response. - Source is urinary tract infection. - D/c IVF. (2) UTI (urinary tract infection) Comment: - Urine culture grew K. pneumoniae resistant to Ampicillin, intermediate to Nitrofurantoin. - Continue Ceftriaxone #3. - US was negative for nephrolithiasis and hydronephrosis. (3) Atrial fibrillation with rapid ventricular response Comment: - Rate difficult to control in the setting of sepsis - continue digoxin , diltiazem, metoprolol. Now on Amiodarone PO with better rate control. Cardiology consult requested. - As infection improves, HR should trend back down to his baseline. - Continue Warfarin and monitor INR. (4) Lactic acidosis Comment: - Secondary to sepsis and metformin use. - Resolved. (5) Type 2 diabetes mellitus Comment: - Glipizide and metformin on hold for now - Continue Lispro SS. (6) DVT prophylaxis Comment: - Warfarin. (7) Full code status Status and Disposition: Inpatient. Transfer to Telemetry.
[2018-01-21] MEDS: cefTRIAXone(*) 1 GM in NS 0.9% 50 ML* 50 ML IVPB SCH (12:41)
[2018-01-21] MEDS ORDERED: Warfarin TAB(*) 4 MG PO ONE (17:00)
[2018-01-21] MEDS: Gabapentin CAP(*) 300 MG PO SCH (21:13)
--- NOTE | 2018-01-21 21:46 | CONS ---
CC: Hospitalist Service; Dr. Cain; Dr. Watt * CARDIOLOGY CONSULTATION: DATE OF CONSULT: 01/21/18 REASON FOR CONSULT: Assistance in rate control with atrial fibrillation. CHIEF COMPLAINT: "Was feeling terrible." HISTORY OF PRESENT ILLNESS: Mr. Ferreira is a 67-year-old gentleman followed by Dr. Cain with chronic atrial fibrillation, a pacemaker for tachybrady syndrome , aortic stenosis, and coronary artery disease. The patient states that on Friday, he began to have symptoms of urinary tract infection, but he did not do anything about it until Friday. He was seen at his primary care physician's office and they advised him to go to the emergency department. In the emergency department, his urine was consistent with urinary tract infection (and the patient subsequently grown Klebsiella pneumoniae), but additionally, his ventricular rate was very rapid and he had evidence of congestive heart failure. The patient was admitted for probable urosepsis, given intravenous hydration, the rate control was difficult, and the patient received diltiazem bolus drip up to 15 mg an hour as well as IV Lopressor, but ventricular rates remained in the 150s. The patient was therefore started on amiodarone drip overnight on 02/26, which did control the rate. By the next morning, the patient's ventricular rates were in the 90s. He has been converted from IV to oral amiodarone, but the hospitalists are asking about outpatient management. The patient himself says his breathing is much, much improved, but he still gets tired out yet, he was trying to cough up something and got very fatigued and he has not been walking much beyond his room. He denies chest pain, pressure, heaviness. He was unaware when his heart rates had escalated. He says his dysuria has gone away and he denies orthopnea or PND. PAST MEDICAL HISTORY: The patient has a past medical history of: 1. Chronic atrial fibrillation. 2. Pacemaker for tachybrady syndrome (syncope in 2013). 3. History of intermittent cardiomyopathy, but ejection fraction 60% to 65% on echo, June of 2017. 4. [id number] aortic stenosis (mean gradient 13 mmHg, June of 2017), mild mitral stenosis from mitral annular calcification. 5. Coronary artery disease with stenting to the LAD. 6. Type 2 diabetes. 7. Dyslipidemia. 8. Hypertension. 9. Obstructive sleep apnea. 10. Obesity. 11. Peptic ulcer disease (history of GI bleed, admitted at [facility], April of 2017). 12. Multiple myeloma, undergoing chemotherapy currently. 13. Pulmonary embolism, June of 2016. PAST SURGICAL HISTORY: Includes: 1. Repair of the hip fracture. 2. Colostomy. 3. Bilateral knee arthroscopy. 4. Tonsillectomy. 5. Pacemaker. MEDICATIONS: Current inpatient medications include: 1. Tylenol p.r.n. 2. Amiodarone 400 mg a day. 3. Lipitor 20 mg a day. 4. Calcium carbonate 500 mg a day. 5. Ceftriaxone IV. 6. B12 of 1000 mcg a day. 7. Flexeril 10 mg b.i.d. p.r.n. 8. D5W p.r.n. 9. Digoxin 0.125 mg a day. 10. Cardizem CD 240 mg a day. 11. Colace 200 mg b.i.d. p.r.n. constipation. 12. Iron sulfate 325 mg t.i.d. 13. Neurontin 300 mg a day. 14. Human lispro insulin p.r.n. 15. Toprol-XL 100 mg a day. 16. Prilosec 20 mg a day. 17. Oxycodone p.r.n. 18. Coumadin. 19. Compazine p.r.n. 20. Zoloft 100 mg a day. 21. Valacyclovir 1 g b.i.d. 22. Vitamin E. 23. Coumadin. ALLERGIES: Include IBUPROFEN and PREGABALIN. FAMILY HISTORY: Significant that his sister had a stroke. SOCIAL HISTORY: Positive for distant smoking, he stopped 7 years ago, in 2012. No history of alcohol abuse. No recreational drug use. He lives with a partner. REVIEW OF SYSTEMS: Positive for dysuria, feeling poorly in general. Negative for chest pain or awareness of his heart racing. Negative for lower extremity edema. Positive for decrease in appetite, and all other 14-point review of systems is unremarkable. PHYSICAL EXAM: The patient is 6 feet 2 inches, weighs 249 pounds with a BMI of 32. Vital Signs: On arrival to the emergency room, heart rate up to 175, blood pressure is low as 109/87; currently, the patient is afebrile, pulse is 102 and irregularly regular, respiratory rate 18, oxygen saturation on room air is 95%, and blood pressure 153/72. General Appearance: Obese, clarita complexion, gentleman, appearing somewhat older than 67 years, lying at 30 degrees in bed, appearing comfortable. Psychologically, pleasant and cooperative. Neurologically, awake, alert, and oriented to person, place, and time. Grossly normal sensory and motor function in the upper and lower extremities. Normal gait. Skin: Warm, dry, pale from last week's sun exposure with no appreciable cyanosis. HEENT: Pupils are equal and round. Mucous membranes were moist. Neck: Thick from obesity, but no thyromegaly or lymphadenopathy appreciated. Good carotid pulses. No audible bruits. Breath sounds after coughing were clear with good effort. No wheezes, rales, rhonchi. Coronary: S1 and S2 regular, 2/6 mid-peaking systolic murmur heard in the right upper sternal border and radiates across the precordium. Abdomen: Over weight. Active bowel sounds. No epigastric discomfort. Lower extremities were free of edema and warm. DIAGNOSTIC STUDIES/LAB DATA: Digoxin level 1.2. Urinalysis is positive for protein, blood, nitrites, leukocyte esterase, yeast. Urine culture is positive for Klebsiella pneumoniae. Sodium 136, potassium 3.9, chloride 107, bicarb 26, BUN 17, creatinine 0.9, glucose 188, magnesium 2.2. Troponin 0.02, 0.02, 0.03. On admission, lactic acid 2.9. White count 5.6, hemoglobin 10.9, hematocrit 34, mean cell volume 78, platelets 94, and INR currently 2.68, on admission 3.98. Chest x-ray from 01/19/18, showed no active disease. EKGs from 01/19/18 show atrial fibrillation with a ventricular rate of 183 beats a minute, QRS axis +60, normal intraventricular conduction times and [address] depression most prominent in the lateral leads; and, when compared to his baseline EKG of 04/09/17, the ST depression is more pronounced when compared with his most recent EKG of 10/16/17 . In the outpatient chart the ST depression is also more pronounced. Outpatient studies include an echocardiogram from 06/23/17 showing mild left ventricular hypertrophy with an ejection fraction of 60% to 65%, right ventricular dilatation, acjv-vt-aeuvmuzo aortic valve stenosis with a mean gradient of 13 mmHg and calculated aortic valve area of 1.3 to 1.6 mmHg. He has mitral annular calcification, mild mitral stenosis. The pacemaker interrogation from 12/30/17 confirms he has a [employer] device, longevity of 4 years and confirming constant atrial fibrillation. He ventricularly paces 39% of the time with a pretty good rate response curve, but ventricular rates do get up above 140 at times, and he is above the 100 beats a minute approximately 25% to 30% of the time. The most recent stress test is 2014, the most recent cardiac catheterization is April of 2017, done in [facility] and report not available and image is not ideal. IMPRESSION AND PLAN: In summary, Mr. Ferreira is a 67-year-old gentleman, who is admitted to the hospital uroseptic with rapid ventricular rates that were difficult to control with calcium channel blockers and beta-blockers, but did well with the addition of the amiodarone. He is clinically improved with his urosepsis and rate control, but he does not appear to be quite back to his prior baseline. Mr. Ferreira additionally has coronary artery disease with multiple atherosclerotic risk factors and multiple myeloma. Fortunately, Mr. Ferreira's troponins, despite the ECG changes with the rapid rates , were reassuring. I think Mr. Ferreira is going to be hemodynamically back to his usual state in another 3 to 7 days. I would consider continuing amiodarone at 400 mg a day until discharge, you could then decrease him to 200 mg a day to be left on 1 more week and then come off. Fortunately, amiodarone is slow to leave the patient's system and I think in the interim Dr. Cain could either see the patient or consider a outpatient Holter monitor and then decide on whether or not to get additional amiodarone or other rate lowering agents. It should be noted that amiodarone will potentiate Coumadin and dosage adjustment should be considered prior to discharge. Thank you for allowing me to assist in this nice gentleman's care. [id number]/[facility] #: [id number] MTDJustin
[2018-01-22 07:11] LABS: INR 2.78 (0.77-1.02)
[2018-01-22] MEDS ORDERED: Furosemide IV* 10 MG/ML VIAL (40 MG) IV SLOW PU ONE (07:53)
[2018-01-22] MEDS: Calcium Carbonate TAB* 1250 MG (CALCIUM 500 MG) PO SCH (08:40)
[2018-01-22] MEDS: Amiodarone TAB* 200 MG PO SCH ×2 (08:41→21:07)
[2018-01-22] MEDS: Sertraline* 100 MG TAB PO SCH (08:42)
[2018-01-22] MEDS: Atorvastatin* 20 MG TAB PO SCH (08:42)
[2018-01-22] MEDS: Cyanocobalamin TAB* 500 MCG PO SCH (08:42)
[2018-01-22] MEDS: Diltiazem CD CAP* 240 MG PO SCH (08:42)
[2018-01-22] MEDS: Metoprolol Succinate XL TAB* 100 MG PO SCH (08:42)
[2018-01-22] MEDS: Digoxin TAB* 0.125 MG PO SCH (08:43)
[2018-01-22] MEDS: Ferrous Sulfate TAB* 325 MG PO SCH ×3 (08:43→21:07)
[2018-01-22] MEDS: Omeprazole CAP* 20 MG PO SCH ×2 (08:44→21:07)
[2018-01-22] MEDS: ValACYclovir (*) 1 GM TAB PO SCH ×2 (08:46→21:07)
[2018-01-22] MEDS: Vitamin E CAP* 400 UNIT PO SCH (08:46)
[2018-01-22] MEDS: Insulin GLARGINE(*) 1 UNITS UNIT SUBCUT SCH (08:47)
[2018-01-22] MEDS: Insulin LISPRO* 1 UNITS UNIT SUBCUT SCH ×4 (08:47→21:31)
[2018-01-22] MEDS ORDERED: Diltiazem CD CAP* 120 MG PO ONE (10:53)
--- NOTE | 2018-01-22 10:55 | PN ---
Subjective Date of Service: 01/22/18 Interval History: HOSPITALIST PROGRESS NOTE Patient seen and examined at bedside. Care reviewed and d/w Jennifer Cordoba RN. He feels well today. Denies dysuria, but still has significant nocturia. Denies CP, palpitations Family History: Unchanged from Admission Social History: Unchanged from Admission Past Medical History: Unchanged from Admission Objective Active Medications: Acetaminophen (Tylenol Tab*) 650 mg PO Q6H PRN PRN Reason: pain/fever Amiodarone HCl (Cordarone Tab*) 200 mg PO BID [facility] Last Admin: 01/22/18 08:41 Dose: 200 mg Atorvastatin Calcium (Lipitor*) 20 mg PO DAILY [facility] Last Admin: 01/22/18 08:42 Dose: 20 mg Calcium Carbonate (Calcium Carbonate Tab*) 500 mg PO DAILY [facility] Last Admin: 01/22/18 08:40 Dose: 500 mg Cyanocobalamin (Vitamin B12 Tab*) 1,000 mcg PO DAILY [facility] Last Admin: 01/22/18 08:42 Dose: 1,000 mcg Cyclobenzaprine HCl (Flexeril Tab*) 10 mg PO BID PRN PRN Reason: SPASMS - MUSCLE Dextrose (D50w Syringe 50 Ml*) 12.5 gm IV PUSH .FOR FS < 60 - SS PRN PRN Reason: FS < 60 Digoxin (Lanoxin Tab*) 0.125 mg PO DAILY [facility] Last Admin: 01/22/18 08:43 Dose: 0.125 mg Diltiazem HCl (Cardizem Cd Cap*) 240 mg PO DAILY [facility] Last Admin: 01/22/18 08:42 Dose: 240 mg Docusate Sodium (Colace Cap*) 200 mg PO BID PRN PRN Reason: CONSTIPATION Ferrous Sulfate (Ferrous Sulfate Tab*) 325 mg PO TID [facility] Last Admin: 01/22/18 08:43 Dose: 325 mg Gabapentin (Neurontin Cap(*)) 300 mg PO BEDTIME [facility] Last Admin: 01/21/18 21:13 Dose: 300 mg Ceftriaxone Sodium 1 gm/ (Sodium Chloride) 50 mls @ 200 mls/hr IVPB Q24H [facility] Last Admin: 01/21/18 12:41 Dose: 200 mls/hr Insulin Glargine (Lantus(*)) 10 units SUBCUT Q24H [facility] Last Admin: 01/22/18 08:47 Dose: 10 units Insulin Human Lispro (Humalog*) 0 units SUBCUT ACHS [facility]; Protocol Last Admin: 01/22/18 08:47 Dose: 6 units Metoprolol Succinate (Toprol Xl Tab*) 100 mg PO DAILY [facility] Last Admin: 01/22/18 08:42 Dose: 100 mg Omeprazole (Prilosec Cap*) 20 mg PO BID [facility] Last Admin: 01/22/18 08:44 Dose: 20 mg Oxycodone HCl (Roxycodone Tab*) 5 mg PO Q6HR PRN PRN Reason: PAIN Last Admin: 01/20/18 18:22 Dose: 5 mg Pharmacy Profile Note (Coumadin Daily Reminder*) 0 note FOLLOW UP 1700 [facility] Last Admin: 01/21/18 16:57 Dose: 4 note Prochlorperazine Edisylate (Compazine Inj*) 5 mg IV Q6H PRN PRN Reason: NAUSEA/VOMITING Sertraline HCl (Zoloft*) 100 mg PO DAILY [facility] Last Admin: 01/22/18 08:42 Dose: 100 mg Valacyclovir HCl (Valtrex 1 Gm(*)) 1 gm PO BID [facility]; Protocol Last Admin: 01/22/18 08:46 Dose: 1 gm Vitamin E (Vitamin E Cap*) 400 unit PO DAILY [facility] Last Admin: 01/22/18 08:46 Dose: 400 unit Vital Signs - 8 hr 01/22/18 01/22/18 01/22/18 03:18 03:31 07:59 Temperature 98.0 F 98.4 F Pulse Rate 118 101 Respiratory 20 20 Rate Blood Pressure 185/96 165/90 136/88 (mmHg) O2 Sat by Pulse 95 98 Oximetry 01/22/18 08:43 Temperature Pulse Rate 110 Respiratory Rate Blood Pressure (mmHg) O2 Sat by Pulse Oximetry Oxygen Devices in Use Now: None Appearance: Pleasant gentleman sitting up in bed in [facility]. Eyes: No Scleral Icterus Ears/Nose/Mouth/Throat: Mucous Membranes Moist Neck: Trachea Midline Respiratory: Symmetrical Chest Expansion and Respiratory Effort, Clear to Auscultation Cardiovascular: - - Normal S1 and S2, irregularly irregular Abdominal: NL Sounds; No Tenderness; No Distention Neurological: Alert and Oriented x 3, NL Muscle Strength and Tone Result Diagrams: 01/21/18 04:46 01/21/18 04:46 Diagnostic Imaging: Patient Name: KELSI FERREIRA Medical Record#: [id number] Ordering Physician: Jessie Antonio MD Acct.#: [id number] : 1950 Age: 67 Sex: M Location: [facility] Exam Date: 01/19/181612 ADM Status: ADM IN Order Information: US RENAL AND BLADDER Accession Number: [id number] CPT: 22129 EXAM: US Retroperitoneal Complete CLINICAL HISTORY: 67 years old, male; Condition or disease; Cancer; Other: Multiple myeloma; Additional info: Uti TECHNIQUE: Real-time ultrasound of the retroperitoneum (complete) with image documentation. COMPARISON: RENAL COM US RENAL COMPLETE 11/25/2013 9:10 AM FINDINGS: Aorta: No aneurysm. Common iliac arteries: No aneurysm. Inferior vena cava: Unremarkable. Right kidney: Right kidney measures 9.8 x 5.1 x 5.7 cm. Lower pole cyst measures approximately 5 cm. No hydronephrosis. No stones. Left kidney: Left kidney measures 10.9 x 6.5 x 6.5 cm. No hydronephrosis. No stones. Bladder: Bladder has a normal appearance. IMPRESSION: 1. Right renal cyst measuring approximately 5 cm. 2. Otherwise normal renal ultrasound. <Electronically signed by Mike Sloan MD in OV> 01/19/182056 Dictated By: Mike Sloan MD Dictated Date/Time: 01/19/182056 Transcribed Date/Time: Copy to: CC:Jessie Antonio MD; Marcin Watt MD Imaging - [facility] Imaging - [facility] [address] [address] This report is only to be considered final once signed by the Provider(s) as displayed in the "<Electronically Signed by >" field (s). Absence of a signature indicates the report is in a draft status and still needs to be finalized. In the event this document was created by someone other than the signing Provider, the individual initiating the document will be listed in the "Entered by:" or "Dictated by:" lopez. 1 of 2 Assess/Plan/Problems-Billing Assessment: Mr Ferreira is a 67yo M with PMH of multiple myeloma, Afib, systolic CHF, CAD s/p stent, type 2 DM, HTN, HLD, GERD, PE, PUD, COPD, obesity with BMI 32, who presented to ED with c/o dysuria and malaise, found to have sepsis secondary to UTI. - Patient Problems (1) Sepsis Comment: - Presentation compatible with sepsis on admission with tachycardia. Patient is immunnosuppressed due to MM/chemotherapy, would not be able to mount a classic sepsis response. - Source is Klebisiella urinary tract infection. (2) UTI (urinary tract infection) Comment: - Urine culture grew K. pneumoniae resistant to Ampicillin, intermediate to Nitrofurantoin. - Continue Ceftriaxone #4. - US was negative for nephrolithiasis and hydronephrosis. (3) Atrial fibrillation with rapid ventricular response Comment: - Rate difficult to control in the setting of sepsis - continue digoxin , diltiazem, metoprolol. Now on Amiodarone PO with better rate control. Cardiology consult requested. - As infection improves, HR should trend back down to his baseline. At rest his HR is controlled, but with exertion he still becomes very tachycardic - d/w Cardiology - will increase Cardizem to 360mg/day. - Continue Warfarin and monitor INR. (4) Lactic acidosis Comment: - Secondary to sepsis and metformin use. - Resolved. (5) Type 2 diabetes mellitus Comment: - Glipizide and metformin on hold for now - Add low dose Lantus and continue Lispro SS. (6) DVT prophylaxis Comment: - Warfarin. (7) Full code status Status and Disposition: Inpatient. Transfer to Telemetry.
[2018-01-22] MEDS: cefTRIAXone(*) 1 GM in NS 0.9% 50 ML* 50 ML IVPB SCH (12:50)
[2018-01-22] MEDS ORDERED: Warfarin TAB(*) 3 MG PO ONE (17:00)
--- NOTE | 2018-01-22 19:31 | CONS ---
CONSULTATION REPORT: DATE OF CONSULT: 01/22/18 REQUESTING PHYSICIAN: Dr. Thomas. CONSULTING SERVICE: Infectious Disease. REASON FOR CONSULT: Urinary tract infection. IMPRESSION: 1. Urinary frequency and dysuria, urinalysis that showed blood, nitrites, leukocyte esterase, urine culture growing greater than 100,000 colonies of klebsiella, which is resistant only to ampicillin, intermediate to nitrofurantoin. He has had recent worsening of his nocturia and incomplete emptying, he has acute bacterial prostatitis. 2. Symptoms of benign prostatic hypertrophy at baseline. 3. Multiple myeloma, on chemotherapy. 4. Coronary disease, history of percutaneous coronary intervention. 5. Status post pacemaker placement. RECOMMENDATION: I agree with ceftriaxone while he is here and then for discharge, he will have Augmentin 500 mg by mouth twice a day for 3 weeks to avoid any drug interactions with his amiodarone. Given his baseline symptoms of BPH and in an acute setting with more retention-type symptoms, will discuss an alpha milton with his primary team. HISTORY OF PRESENT ILLNESS: This is a 67-year-old diabetic man with multiple myeloma, admitted with malaise and urinary frequency and dysuria. His baseline is that he is up once an hour every night to urinate. He has had low-grade fevers and chills at home, his appetite . When he came to the hospital on 01/19/18, he had a chest x-ray that was unremarkable. Urinalysis as noted above. Ultrasound of the bladder, kidneys showed a right renal cyst, otherwise no abnormality. His white blood cell count was 10. He had a fever to 38.6 degrees. Overall, he feels better after a couple of days of antibiotics, which he has been tolerating well. He has blood cultures which are negative. He has not had urinary tract infection in the recent past. PAST MEDICAL HISTORY: 1. Multiple myeloma. 2. Type 2 diabetes. 3. Obesity. 4. Coronary disease and history of PCI. 5. Atrial fibrillation. 6. Congestive heart failure, ejection fraction 35% to 40%, 2014. 7. Gastroesophageal reflux disease. 8. Hyperlipidemia. 9. Hypertension. 10. Osteoarthritis. 11. Pathological fracture, left hip and pelvis. 12. Pulmonary embolism, June 2016. 13. Peptic ulcer disease. 14. Obstructive sleep apnea. 15. COPD. 16. Status post colostomy. 17. Status post bilateral knee arthroscopy. 18. Status post tonsillectomy. 19. Status post pacemaker placement. MEDICATIONS: 1. Tylenol. 2. Amiodarone. 3. Lipitor. 4. Flexeril. 5. Digoxin. 6. Diltiazem. 7. Ferrous sulfate. 8. Gabapentin. 9. Insulin glargine. 10. Metoprolol. 11. Oxycodone. 12. Ceftriaxone 1 g a day. 13. Sertraline. 14. Vitamin E. 15. Warfarin. ALLERGIES: IBUPROFEN and PREGABALIN. FAMILY HISTORY: No recurrent infections. SOCIAL HISTORY: He lives in [place] with his partner. He has no sick contacts. REVIEW OF SYSTEMS: All negative to a 14-point of review of systems except as noted above in the history of present illness. PHYSICAL EXAM: Vital Signs: Temperature 37, heart rate 100, respiratory rate 20, blood pressure 130/80, oxygen saturation 98% on 2 L. In general, he is awake, not in distress. Neurologic: He is oriented x3. Follows all commands. HEENT: There is no conjunctival hemorrhage. Oropharynx without lesions. Neck is supple without mass. Heart has regular rate and rhythm without murmurs , rubs, or gallops. Lungs are clear to auscultation bilaterally. Abdomen: Soft, nontender, nondistended. There are bowel sounds present. There is no flank tenderness to palpation. Skin: There is no rash or splinter hemorrhage. Musculoskeletal: There is no spine tenderness to palpation. LABORATORY DATA: Creatinine 0.9. White blood cell count 5, hemoglobin 10, platelets 94. Please see impressions and recommendations as outlined above. Thanks for asking me to see Mr. Ferreira in consultation. [id number]/[facility] #: [id number] [facility]OSPITALJustin
[2018-01-22] MEDS: Gabapentin CAP(*) 300 MG PO SCH (21:07)
[2018-01-23] MEDS: oxyCODONE TAB* 5 MG TAB PO PRN (03:47)
[2018-01-23 06:07] LABS: ABS Basophils 0.1 10^3/ul (0-0.2); ABS Eosinophils 0.1 10^3/ul (0-0.6); ABS Lymphocytes 1.3 10^3/ul (1.0-4.8); ABS Monocytes 0.8 10^3/ul (0-0.8); ABS Neutrophils 3.7 10^3/ul (1.5-7.7); ABS Nucleated RBC 0 10^3/ul; Eosinophil % 2.2 % (0-6); Hematocrit 39 % (42-52); Hemoglobin 12.5 g/dl (14.0-18.0); Lymphocyte % 22.6 % (25-47); Mean Corpuscular HGB Conc 32 g/dl (31-36); Mean Corpuscular Hemoglobin 25 pg (27-31); Mean Corpuscular Volume 77 fL (80-94); Mean Platelet Volume 8.7 um3 (7.4-10.4); Nucleated Red Blood Cells % 0.1; Platelet Count 160 10^3/ul (150-450); Red Blood Count 5.04 10^6/ul (4.00-5.40); Red Cell Distribution Width 18 % (10.5-15); White Blood Count 5.9 10^3/ul (3.5-10.8)
[2018-01-23] MEDS: Insulin LISPRO* 1 UNITS UNIT SUBCUT SCH ×4 (08:33→20:40)
[2018-01-23] MEDS: Insulin GLARGINE(*) 1 UNITS UNIT SUBCUT SCH ×2 (08:34→10:37)
[2018-01-23] MEDS: Digoxin TAB* 0.125 MG PO SCH (08:35)
[2018-01-23] MEDS: Cyanocobalamin TAB* 500 MCG PO SCH (08:35)
[2018-01-23] MEDS: Ferrous Sulfate TAB* 325 MG PO SCH ×3 (08:35→20:41)
[2018-01-23] MEDS: Atorvastatin* 20 MG TAB PO SCH (08:35)
[2018-01-23] MEDS: ValACYclovir (*) 1 GM TAB PO SCH ×2 (08:36→20:41)
[2018-01-23] MEDS: Diltiazem CD CAP* 180 MG PO SCH (08:36)
[2018-01-23] MEDS: Metoprolol Succinate XL TAB* 100 MG PO SCH (08:36)
[2018-01-23] MEDS: Sertraline* 100 MG TAB PO SCH (08:36)
[2018-01-23] MEDS: Vitamin E CAP* 400 UNIT PO SCH (08:36)
[2018-01-23] MEDS: Amiodarone TAB* 200 MG PO SCH (08:36)
[2018-01-23] MEDS: Omeprazole CAP* 20 MG PO SCH ×2 (08:36→20:40)
[2018-01-23] MEDS: Calcium Carbonate TAB* 1250 MG (CALCIUM 500 MG) PO SCH (08:55)
--- NOTE | 2018-01-23 11:38 | PN ---
Progress Note - Progress Note Date of Service: 01/23/18 SOAP: Subjective: CC: UTI HPI: 67 year old man with myeloma and acute prostatis, dysuria improving. Ongoing frequency, does have baseline nocturia. No fever or diarrhea. R leg rash improving, no pain or itching. Objective: [] Vital Signs Temp 36.7 C 01/23/18 07:30 Pulse 92 01/23/18 08:35 Resp 20 01/23/18 07:39 BP 131/85 01/23/18 07:30 Pulse Ox 99 01/23/18 07:30 Intake & Output 01/22/18 01/23/18 01/23/18 18:59 06:59 18:59 Intake Total 1460 0 Output Total 4075 1350 Balance -2615 -1350 Weight 242 lb 3.2 oz Intake: Oral 1460 0 Output: Urine 4075 1350 Other: # Bowel Movements 0 Gen:awake, no distress HEENT: no thrush Heart:RRR no murmur Lungs:CTA BL Abd:+BS NTND soft Skin: Right lateral leg resolved vesicles MSK: no spine tenderness Laboratory Results - last 24 hr 01/22/18 01/22/18 01/22/18 06:29 11:30 16:33 WBC RBC Hgb Hct MCV MCH MCHC RDW Plt Count MPV Neut % (Auto) Lymph % (Auto) Benson % (Auto) Eos % (Auto) Baso % (Auto) Absolute Neuts (auto) Absolute Lymphs (auto) Absolute Monos (auto) Absolute Eos (auto) Absolute Basos (auto) Absolute Nucleated RBC Nucleated RBC % INR (Anticoag Therapy) Sodium Potassium Chloride Carbon Dioxide Anion Gap BUN Creatinine Est GFR ( Amer) Est GFR (Non-Af Amer) BUN/Creatinine Ratio Glucose POC Glucose (mg/dL) 337 H 262 H Calcium HIV 1&2 Antibody Nonreactive 01/22/18 01/23/18 01/23/18 21:08 05:45 05:45 WBC 5.9 RBC 5.04 Hgb 12.5 L Hct 39 L MCV 77 L MCH 25 L MCHC 32 RDW 18 H Plt Count 160 MPV 8.7 Neut % (Auto) 61.6 Lymph % (Auto) 22.6 L Benson % (Auto) 12.7 H Eos % (Auto) 2.2 Baso % (Auto) 0.9 Absolute Neuts (auto) 3.7 Absolute Lymphs (auto) 1.3 Absolute Monos (auto) 0.8 Absolute Eos (auto) 0.1 Absolute Basos (auto) 0.1 Absolute Nucleated RBC 0 Nucleated RBC % 0.1 INR (Anticoag Therapy) 3.00 H Sodium Potassium Chloride Carbon Dioxide Anion Gap BUN Creatinine Est GFR ( Amer) Est GFR (Non-Af Amer) BUN/Creatinine Ratio Glucose POC Glucose (mg/dL) 285 H Calcium HIV 1&2 Antibody 01/23/18 01/23/18 05:45 07:40 WBC RBC Hgb Hct MCV MCH MCHC RDW Plt Count MPV Neut % (Auto) Lymph % (Auto) Benson % (Auto) Eos % (Auto) Baso % (Auto) Absolute Neuts (auto) Absolute Lymphs (auto) Absolute Monos (auto) Absolute Eos (auto) Absolute Basos (auto) Absolute Nucleated RBC Nucleated RBC % INR (Anticoag Therapy) Sodium 140 Potassium 4.0 Chloride 102 Carbon Dioxide 30 Anion Gap 8 BUN 15 Creatinine 1.04 Est GFR ( Amer) 85.9 Est GFR (Non-Af Amer) 71.0 BUN/Creatinine Ratio 14.4 Glucose 254 H POC Glucose (mg/dL) 246 H Calcium 9.3 HIV 1&2 Antibody Assessment: 1. Acute bacterial prostatitis, improving; 2. R leg rash ?HSV/VZV 3. Myeloma on treatment 4. BPH Plan: 1. can use augmentin 500 mg po BID to complete 3 week course; fu with me 2-3 weeks 2. flomax 3. valtrex
--- NOTE | 2018-01-23 12:47 | PN ---
Subjective Date of Service: 01/23/18 Interval History: HOSPITALIST PROGRESS NOTE Patient seen and examined at bedside. Care reviewed and d/w Joey Rodriguez RN. He feels well today. Denies pain, no N/V/D, appetite is good. Still has some nocturia, but less frequent than on admission. Family History: Unchanged from Admission Social History: Unchanged from Admission Past Medical History: Unchanged from Admission Objective Active Medications: Acetaminophen (Tylenol Tab*) 650 mg PO Q6H PRN PRN Reason: pain/fever Amiodarone HCl (Cordarone Tab*) 200 mg PO BID [facility] Last Admin: 01/23/18 08:36 Dose: 200 mg Amoxicillin/Clavulanate Potassium (Augmentin Tab*) 500 mg PO BID [facility] Atorvastatin Calcium (Lipitor*) 20 mg PO DAILY [facility] Last Admin: 01/23/18 08:35 Dose: 20 mg Calcium Carbonate (Calcium Carbonate Tab*) 1,250 mg PO DAILY [facility] Last Admin: 01/23/18 08:55 Dose: 1,250 mg Cyanocobalamin (Vitamin B12 Tab*) 1,000 mcg PO DAILY [facility] Last Admin: 01/23/18 08:35 Dose: 1,000 mcg Cyclobenzaprine HCl (Flexeril Tab*) 10 mg PO BID PRN PRN Reason: SPASMS - MUSCLE Dextrose (D50w Syringe 50 Ml*) 12.5 gm IV PUSH .FOR FS < 60 - SS PRN PRN Reason: FS < 60 Digoxin (Lanoxin Tab*) 0.125 mg PO DAILY [facility] Last Admin: 01/23/18 08:35 Dose: 0.125 mg Diltiazem HCl (Cardizem Cd Cap*) 360 mg PO DAILY [facility] Last Admin: 01/23/18 08:36 Dose: 360 mg Docusate Sodium (Colace Cap*) 200 mg PO BID PRN PRN Reason: CONSTIPATION Ferrous Sulfate (Ferrous Sulfate Tab*) 325 mg PO TID [facility] Last Admin: 01/23/18 08:35 Dose: 325 mg Gabapentin (Neurontin Cap(*)) 300 mg PO BEDTIME [facility] Last Admin: 01/22/18 21:07 Dose: 300 mg Insulin Glargine (Lantus(*)) 20 units SUBCUT Q24H [facility] Last Admin: 01/23/18 08:34 Dose: 20 units Insulin Human Lispro (Humalog*) 0 units SUBCUT ACHS [facility]; Protocol Last Admin: 01/23/18 08:33 Dose: 6 units Metoprolol Succinate (Toprol Xl Tab*) 100 mg PO DAILY [facility] Last Admin: 01/23/18 08:36 Dose: 100 mg Omeprazole (Prilosec Cap*) 20 mg PO BID [facility] Last Admin: 01/23/18 08:36 Dose: 20 mg Oxycodone HCl (Roxycodone Tab*) 5 mg PO Q6HR PRN PRN Reason: PAIN Last Admin: 01/23/18 03:47 Dose: 5 mg Pharmacy Profile Note (Coumadin Daily Reminder*) 0 note FOLLOW UP 1700 [facility] Last Admin: 01/22/18 16:58 Dose: 3 note Prochlorperazine Edisylate (Compazine Inj*) 5 mg IV Q6H PRN PRN Reason: NAUSEA/VOMITING Sertraline HCl (Zoloft*) 100 mg PO DAILY [facility] Last Admin: 01/23/18 08:36 Dose: 100 mg Tamsulosin HCl (Flomax Cap*) 0.4 mg PO BEDTIME [facility] Valacyclovir HCl (Valtrex 1 Gm(*)) 1 gm PO BID [facility]; Protocol Last Admin: 01/23/18 08:36 Dose: 1 gm Vitamin E (Vitamin E Cap*) 400 unit PO DAILY [facility] Last Admin: 01/23/18 08:36 Dose: 400 unit Warfarin Sodium (Coumadin Tab(*)) 2 mg PO ONCE@1700 NR; Protocol Stop: 01/23/18 23:59 Vital Signs - 8 hr 01/23/18 01/23/18 01/23/18 05:38 07:30 07:39 Temperature 98.1 F Pulse Rate 92 Respiratory 16 18 20 Rate Blood Pressure 131/85 (mmHg) O2 Sat by Pulse 99 Oximetry 01/23/18 01/23/18 08:35 11:54 Temperature 99.0 F Pulse Rate 92 76 Respiratory 18 Rate Blood Pressure 144/73 (mmHg) O2 Sat by Pulse 100 Oximetry Oxygen Devices in Use Now: None Appearance: Pleasant gentleman sitting up in bed in NAD. Eyes: No Scleral Icterus Ears/Nose/Mouth/Throat: Mucous Membranes Moist Neck: Trachea Midline Respiratory: Symmetrical Chest Expansion and Respiratory Effort, Clear to Auscultation Cardiovascular: - - Normal S1 and S2, irregularly irregular Neurological: Alert and Oriented x 3, NL Muscle Strength and Tone Result Diagrams: 01/23/18 05:45 01/23/18 05:45 Assess/Plan/Problems-Billing Assessment: Mr Ferreira is a 67yo M with PMH of multiple myeloma, Afib, systolic CHF, CAD s/p stent, type 2 DM, HTN, HLD, GERD, PE, PUD, COPD, obesity with BMI 32, who presented to ED with c/o dysuria and malaise, found to have sepsis secondary to UTI. - Patient Problems (1) Sepsis Comment: - Presentation compatible with sepsis on admission with tachycardia. Patient is immunnosuppressed due to MM/chemotherapy, would not be able to mount a classic sepsis response. - Source is Klebisiella urinary tract infection. (2) UTI (urinary tract infection) Comment: - Urine culture grew K. pneumoniae resistant to Ampicillin, intermediate to Nitrofurantoin. - Continue Ceftriaxone #5. - US was negative for nephrolithiasis and hydronephrosis. - ID input appreciated - plan to d/c on Augmentin to complete 3 more weeks of treatment. 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 - Continue Valtrex to complete 10 days. (4) Atrial fibrillation with rapid ventricular response Comment: - Rate difficult to control in the setting of sepsis - continue digoxin , diltiazem, metoprolol and amiodarone. (5) Lactic acidosis Comment: - Secondary to sepsis and metformin use. - Resolved. (6) Type 2 diabetes mellitus Comment: - Glipizide and metformin on hold for now - Continue low dose Lantus and Lispro SS. (7) DVT prophylaxis Comment: - Warfarin. (8) Full code status Status and Disposition: Inpatient. Anticipate d/c in AM.
[2018-01-23] MEDS ORDERED: Warfarin TAB(*) 2 MG PO NR (17:00)
[2018-01-23] MEDS: Gabapentin CAP(*) 300 MG PO SCH (20:40)
[2018-01-23] MEDS: Amoxicillin/Clavulanate TAB* 500 MG PO SCH (20:40)
[2018-01-23] MEDS ORDERED: Tamsulosin CAP* 0.4 MG PO SCH (21:00)
[2018-01-24] MEDS: Insulin GLARGINE(*) 1 UNITS UNIT SUBCUT SCH (08:08)
[2018-01-24 08:09] VITALS: BP 137/75
[2018-01-24] MEDS: Calcium Carbonate TAB* 1250 MG (CALCIUM 500 MG) PO SCH (08:09)
[2018-01-24] MEDS: Omeprazole CAP* 20 MG PO SCH (08:09)
[2018-01-24] MEDS: Insulin LISPRO* 1 UNITS UNIT SUBCUT SCH ×2 (08:09→12:11)
[2018-01-24] MEDS: Metoprolol Succinate XL TAB* 100 MG PO SCH (08:10)
[2018-01-24] MEDS: Diltiazem CD CAP* 180 MG PO SCH (08:10)
[2018-01-24] MEDS: Cyanocobalamin TAB* 500 MCG PO SCH (08:10)
[2018-01-24] MEDS: Ferrous Sulfate TAB* 325 MG PO SCH (08:10)
[2018-01-24] MEDS: Amoxicillin/Clavulanate TAB* 500 MG PO SCH (08:10)
[2018-01-24] MEDS: Atorvastatin* 20 MG TAB PO SCH (08:10)
[2018-01-24] MEDS: Sertraline* 100 MG TAB PO SCH (08:10)
[2018-01-24] MEDS: Vitamin E CAP* 400 UNIT PO SCH (08:11)
[2018-01-24] MEDS: ValACYclovir (*) 1 GM TAB PO SCH (08:11)
[2018-01-24] MEDS ORDERED: Digoxin TAB* 0.25 MG PO SCH (09:00)
--- NOTE | 2018-01-25 21:34 | DS ---
CC: Dr. Watt; Dr. Whitmore; Dr. Cain; Dr. Mark * DISCHARGE SUMMARY: DATE OF ADMISSION: 01/19/18 DATE OF DISCHARGE: 01/24/18 PRIMARY CARE PROVIDER: Dr. Watt. ONCOLOGIST: Dr. Whitmore. PERINATAL BREASTFEEDING ASSISTANT: Dr. Cain. INFECTIOUS DISEASE SPECIALIST: Dr. Mark. DISCHARGE DIAGNOSES: 1. Sepsis. 2. Urinary tract infection/prostatitis secondary to Klebsiella pneumonia, present on admission, now Freedman catheter related. 3. Atrial fibrillation with rapid ventricular rate. 4. Lactic acidosis. SECONDARY DIAGNOSES: 1. Multiple myeloma. 2. Atrial fibrillation. 3. Systolic congestive heart failure with ejection fraction of 35% to 40%. 4. Coronary artery disease, status post stent to the LAD. 5. Type 2 diabetes. 6. Gastroesophageal reflux disease. 7. Hyperlipidemia. 8. Hypertension. 9. Osteoarthritis. 10. History of pathologic fracture of the left hip and pelvic fracture. 11. History of PE in June 2016. 12. Peptic ulcer disease. 13. Sleep apnea. 14. Chronic obstructive pulmonary disease. 15. Obesity with a BMI of 31. 16. Seborrhea. MEDICATIONS: 1. Lantus 30 units subcutaneously daily. 2. Cholecalciferol 3000 units p.o. daily. 3. Sertraline 100 mg p.o. daily. 4. Ramipril 2.5 mg p.o. b.i.d. 5. Pantoprazole 40 mg p.o. b.i.d. 6. Oxycodone 5 mg p.o. q.6 hours p.r.n. pain. 7. Metformin 500 mg p.o. b.i.d. 8. Magnesium oxide 500 mg p.o. b.i.d. 9. Glipizide 5 mg p.o. daily. 10. Gabapentin 300 mg p.o. at bedtime. 11. Furosemide 20 mg p.o. daily. 12. Ferrex 150 mg p.o. b.i.d. 13. Cyclobenzaprine 10 mg p.o. b.i.d. as needed for muscle spasms. 14. Vitamin B12 of 1000 mcg p.o. daily. 15. Colace 200 mg p.o. b.i.d. as needed for constipation. 16. Calcium carbonate 500 mg p.o. daily. 17. Vitamin E 400 units p.o. daily. 18. Atorvastatin 20 mg p.o. daily. Medication change: 1. Metoprolol succinate was increased to 100 mg p.o. q.a.m. and 25 mg p.o. at bedtime. 2. Warfarin was decreased to 3 mg p.o. daily. 3. Cardizem was increased to 360 mg p.o. daily. 4. Digoxin was increased to 0.25 mg p.o. daily. New medications: 1. Augmentin 500 mg p.o. b.i.d. for 21 more days. 2. Valtrex 1 g p.o. b.i.d. for 5 more days. 3. Flomax 0.5 mg p.o. at bedtime. HOSPITAL COURSE: Mr. Ferreira is a 67-year-old male with a past medical history as stated above that presented to the emergency room with complaints of fatigue , weakness, and malaise. The patient's presentation was compatible with sepsis with his tachycardia. As the patient is immunosuppressed due to multiple myeloma/chemotherapy, he was not expected to be able to mount leukocytosis. The patient had urinary complaints and the impression was that the source was urinary. His UA was abnormal and later on his urine culture grew Klebsiella pneumoniae. The patient had a renal/bladder ultrasound that showed only a right renal cyst measuring approximately 5 cm, but otherwise it was a normal study with no hydronephrosis. The patient was seen in consultation by Infectious Disease (Dr. Mark) and he agreed that the patient likely had UTI and prostatitis and the plan was for him to be treated with ceftriaxone while in the hospital, and to be discharged on Augmentin 500 mg twice a day for 3 weeks. He will also follow up as outpatient. One significant issue while in the hospital was the patient's atrial fibrillation with rapid ventricular rate. He required admission to the intensive care unit and amiodarone drip and he was later switched to amiodarone p.o. Further review of his records revealed that the patient had side effects with amiodarone, so the final cardiology recommendation was to increase his metoprolol and digoxin, stop amiodarone, and he will follow up with Dr. Cain as outpatient. By the day of discharge, his rate is better controlled ranging from 80 to 100s. The patient was also found to have a right lower extremity rash suggestive of herpes simplex and he is responding to treatment with Valtrex. It was thought that the patient's lactic acid elevation was likely secondary to his metformin use and not severe sepsis. The patient is medically stable to be discharged home today. PHYSICAL EXAMINATION: Vital Signs: Temperature 98.1, heart rate is 81, respiratory rate is 20, oxygen saturation is 95% on room air, blood pressure is 130/72. General: The patient is a pleasant elderly gentleman, sitting up in bed, in no acute distress. CVS: Normal S1, S2. Irregularly irregular. Chest : Breath sounds bilaterally with no added sounds. Abdomen: Soft. Bowel sounds are present. Extremities: No edema. Neuro: He is alert and oriented x3. He is able to move all 4 extremities. Skin: The patient has significant erythematous facial rash secondary to seborrheic dermatitis. DIET: Heart-healthy, consistent carb diet. ACTIVITY: As tolerated. DISPOSITION: To home. STATUS WHILE IN THE HOSPITAL: Inpatient. Please keep in mind this is a summarized version of this patient's hospital stay. If you need more information , please feel free to call me at [phone] or please obtain the full medical records. TIME SPENT: Approximately 45 minutes were spent to complete this discharge. [id number]/CPS #: [id number] MATT
== END 2018-01-24 14:20 | disposition home or self-care (01) | DRG 872 ==
LOC: ED 11:25 → ICU 16:12 → MEDTELE 01-21 09:01
PROVIDERS: ADMIT Internal Medicine; ATTEND Internal Medicine
DX: A41.9 Sepsis, unspecified organism (principal); N39.0 Urinary tract infection, site not specified; E87.2 Acidosis; C90.00 Multiple myeloma not having achieved remission; I50.20 Unspecified systolic (congestive) heart failure; B00.89 Other herpesviral infection; N41.0 Acute prostatitis; I42.8 Other cardiomyopathies; I11.0 Hypertensive heart disease with heart failure; B96.1 Klebsiella pneumoniae [K. pneumoniae] as the cause of diseases classified elsewhere; I48.2 Chronic atrial fibrillation; I49.5 Sick sinus syndrome; I25.10 Atherosclerotic heart disease of native coronary artery without angina pectoris; E11.9 Type 2 diabetes mellitus without complications; K21.9 Gastro-esophageal reflux disease without esophagitis; E78.5 Hyperlipidemia, unspecified; M19.90 Unspecified osteoarthritis, unspecified site; G47.33 Obstructive sleep apnea (adult) (pediatric); K27.9 Peptic ulcer, site unspecified, unspecified as acute or chronic, without hemorrhage or perforation; I08.0 Rheumatic disorders of both mitral and aortic valves; J44.9 Chronic obstructive pulmonary disease, unspecified; N40.0 Benign prostatic hyperplasia without lower urinary tract symptoms; E66.9 Obesity, unspecified; Z95.5 Presence of coronary angioplasty implant and graft; Z86.711 Personal history of pulmonary embolism; Z68.31 Body mass index [BMI] 31.0-31.9, adult; Z79.01 Long term (current) use of anticoagulants; Z79.84 Long term (current) use of oral hypoglycemic drugs; Z79.891 Long term (current) use of opiate analgesic; Z79.899 Other long term (current) drug therapy; Z88.6 Allergy status to analgesic agent; Z88.8 Allergy status to other drugs, medicaments and biological substances; Z82.3 Family history of stroke; Z87.891 Personal history of nicotine dependence; Z95.0 Presence of cardiac pacemaker
CPT/HCPCS: 36415; 71045; 76770; 80048; 80053; 80162; 81003; 81015; 83605; 83735; 84443; 84484; 85025; 85060; 85610; 85730; 86703; 87040; 87077; 87086; 87186; 87641; 93005; 99284; A9270-GY; J0282; J0696; J1940; J3475; J3490

== ENCOUNTER 2018-05-05 21:04 | Observation (INO) | payer MEDICARE, OTHER ==
[2018-05-05 21:56] LABS: Urine Appearance Cloudy; Urine Bacteria Absent (Absent); Urine Bilirubin Negative (Negative); Urine Blood Negative (Negative); Urine Color Yellow; Urine Glucose Negative (Negative); Urine Ketones Negative (Negative); Urine Nitrite Negative (Negative); Urine Protein 1+(30 mg/dL) (Negative); Urine Red Blood Cell Absent (Absent); Urine Specific Gravity 1.016 (1.010-1.030); Urine Urobilinogen Negative (Negative); Urine White Blood Cell Absent (Absent)
[2018-05-05 22:12] LABS: ABS Basophils 0.1 10^3/ul (0-0.2); ABS Eosinophils 0.1 10^3/ul (0-0.6); ABS Lymphocytes 1.2 10^3/ul (1.0-4.8); ABS Neutrophils 5.8 10^3/ul (1.5-7.7); ABS Nucleated RBC 0 10^3/ul; Eosinophil % 1.3 %; Hematocrit 39 % (42-52); Hemoglobin 12.2 g/dl (14.0-18.0); Mean Corpuscular HGB Conc 32 g/dl (31-36); Mean Corpuscular Hemoglobin 25 pg (27-31); Mean Corpuscular Volume 77 fL (80-94); Mean Platelet Volume 8.3 fL (7.4-10.4); Nucleated Red Blood Cells % 0; Platelet Count 213 10^3/ul (150-450); Red Blood Count 4.99 10^6/ul (4.00-5.40); Red Cell Distribution Width 19 % (10.5-15); White Blood Count 8.3 10^3/ul (3.5-10.8)
[2018-05-05 22:29] LABS: Albumin 3.8 g/dL (3.2-5.2); Albumin/Globulin Ratio 1.5 (1-3); BUN/Creatinine Ratio 19.5 (8-20); Calcium 9.1 mg/dL (8.6-10.3); Globulin 2.5 g/dL (2-4); Potassium 4.1 mmol/L (3.5-5.0); Total Bilirubin 0.9 mg/dL (0.2-1.0); Total Protein 6.3 g/dL (6.4-8.9)
[2018-05-05] MEDS ORDERED: Iodixanol* (CONTRAST) 320 MG/ML 100 ML SDV IV ONE (22:32)
[2018-05-05 22:45] LABS: C Reactive Protein 17.58 mg/L (<8.01)
[2018-05-05] MEDS ORDERED: Furosemide IV* 10 MG/ML VIAL (40 MG) IV ONE (23:01)
--- NOTE | 2018-05-06 01:25 | ED ---
Shortness of Breath - HPI Summary HPI Summary: Patient complains of progressive exertional SOB 1 week, as well as intermittent abdominal pain with decreased appetite today. Denies fever, cough , sore throat, CP, N/V/D, change in urine, change in BM. Medical history CAD with stents, multiple myeloma, A. fib with ablation, CHF, HLD, DM 2, as pacemaker, CK D. Abdominal surgical history is none. Patient on Coumadin 2 mg. Patient states he has home O2 when necessary due to prior history of PE. Baseline does not wear oxygen, but states she has been wearing oxygen for the past 7 hours. - History of Current Complaint Chief Complaint: EDShortnessOfBreath Time Seen by Provider: 05/05/18 21:25 Hx Obtained From: Patient, Family/[employer] Onset/Duration: Gradual Onset Timing: Intermittent Episodes Lasting: Current Severity: Moderate Dyspnea At: Exertion Alleviating Factors: Oxygen Associated Signs & Symptoms: Negative - Allergy/Home Medications Allergies/Adverse Reactions: Allergies Allergy/AdvReac Type Severity Reaction Status Date / Time ibuprofen Allergy GI Upset Verified 10/23/17 06:26 pregabalin Allergy Swelling Verified 10/23/17 06:26 PACEMAKER Allergy See Comment Uncoded 10/23/17 06:26 PMH/Surg Hx/FS Hx/Imm Hx Endocrine/Hematology History: Reports: Hx Anticoagulant Therapy, Hx Bone Marrow Disease, Hx Diabetes, Hx Anemia - HX OF WITH TRANSFUSIONS IN 06/2013, Other Endocrine/Hematological Disorders - multiple myeloma Denies: Hx Thyroid Disease Cardiovascular History: Reports: Hx Congestive Heart Failure, Hx Coronary Artery Disease, Hx Hypercholesterolemia, Hx Hypertension, Hx Pacemaker/ICD, Hx Syncope, Hx Valvular Heart Disease, Other Cardiovascular Problems/Disorders - Cardiac cath, dyslipidemia, Denies: Hx Peripheral Vascular Disease Respiratory History: Reports: Hx Asthma - HAS PRN INHALERS, Hx Chronic Obstructive Pulmonary Disease (COPD) - 2-3 liters O2 at home, Hx Pulmonary Embolism, Hx Sleep Apnea - NO CPAP, Other Respiratory Problems/Disorders - HX OF MULTIPLE MYELOMA GI History: Reports: Hx Gastroesophageal Reflux Disease, Hx Ulcer - PUD History: Reports: Hx Kidney Infection - Denies: Hx Dialysis, Hx Renal Disease Musculoskeletal History: Reports: Hx Arthritis, Hx Back Problems, Hx Bursitis, Hx Orthopedic Injury - pelvic fracture 01/2014 Comment Only: Other Musculoskeletal History - MULTIE Sensory History: Reports: Hx Cataracts, Hx Contacts or Glasses, Hx Glaucoma Denies: Hx Deafness, Hx Hearing Aid Opthamlomology History: Reports: Hx Cataracts, Hx Contacts or Glasses, Hx Glaucoma Neurological History: Denies: Hx Seizures, Hx Transient Ischemic Attacks (TIA), Other Neuro Impairments/Disorders Psychiatric History: Reports: Hx Anxiety, Hx Depression - anxiety - Cancer History Cancer Type, Location and Year: multiple myeloma Hx Chemotherapy: Yes - last chemo last Friday Hx Radiation Therapy: No Hx Palliative Cancer Treatment: No - Surgical History Surgery Procedure, Year, and Place: cardiac cath/CARDIAC STENT, PACEMAKER, HIP REPLACEMENT Hx Anesthesia Reactions: No - Immunization History Date of Tetanus Vaccine: PT STATES UNSURE Date of Influenza Vaccine: PT STATES UNSURE Infectious Disease History: No Infectious Disease History: Reports: Hx of Known/Suspected MRSA - NOSE Denies: Hx Clostridium Difficile, Hx Hepatitis, Hx Human Immunodeficiency Virus (HIV), Hx Shingles, Hx Tuberculosis, History Other Infectious Disease, Traveled Outside the [place] in Last 30 Days - Family History Known Family History: Positive: Other - mother had circulation problems, father had angina. - Social History Alcohol Use: None Hx Substance Use: No Substance Use Type: Reports: None Hx Tobacco Use: Yes Smoking Status (MU): Former Smoker Type: Cigarettes Amount Used/How Often: 1/2 PPD Length of Time of Smoking/Using Tobacco: 20 years Have You Smoked in the Last Year: No Review of Systems Constitutional: Negative Eyes: Negative ENT: Negative Cardiovascular: Negative Positive: Shortness Of Breath Positive: Abdominal Pain Genitourinary: Negative Musculoskeletal: Negative Skin: Negative Neurological: Negative Psychological: Normal All Other Systems Reviewed And Are Negative: Yes Physical Exam - Summary Physical Exam Summary: Diffuse tenderness with palpation to abdomen. Lung sounds diminished bilaterally. Physical exam otherwise unremarkable. Patient on O2 at 2 L. Triage Information Reviewed: Yes Vital Signs On Initial Exam: Initial Vitals Pulse Pulse Ox 87 93 05/05/18 21:12 05/05/18 21:12 Vital Signs Reviewed: Yes Appearance: Positive: Well-Appearing Skin: Positive: Warm Head/Face: Positive: Normal Head/Face Inspection Eyes: Positive: Normal ENT: Positive: Normal ENT inspection Neck: Positive: Supple Respiratory/Lung Sounds: Positive: Decreased Breath Sounds Cardiovascular: Positive: Normal Abdomen Description: Positive: Other:. Negative: Distended, Guarding Musculoskeletal: Positive: Normal Neurological: Positive: Normal Psychiatric: Positive: Normal AVPU Assessment: Alert - [place] Coma Scale Best Eye Response: 4 - Spontaneous Best Motor Response: 6 - Obeys Commands Best Verbal Response: 5 - Oriented Coma Scale Total: 15 Diagnostics - Vital Signs Vital Signs Temp Pulse Resp BP Pulse Ox 05/05/18 23:15 71 22 174/84 95 05/05/18 23:07 71 156/78 98 05/05/18 23:00 70 100 05/05/18 22:15 70 36 165/93 100 05/05/18 22:00 70 34 100 05/05/18 21:45 70 37 163/89 100 05/05/18 21:17 98.5 F 83 25 185/103 99 05/05/18 21:16 85 13 184/102 99 05/05/18 21:12 87 93 - Laboratory Lab Results: Lab Results 05/05/18 05/05/18 05/05/18 Range/Units 21:43 22:02 22:06 WBC 8.3 (3.5-10.8) 10^3/ul RBC 4.99 (4.00-5.40) 10^6/ul Hgb 12.2 L (14.0-18.0) g/dl Hct 39 L (42-52) % MCV 77 L (80-94) fL MCH 25 L (27-31) pg MCHC 32 (31-36) g/dl RDW 19 H (10.5-15) % Plt Count 213 (150-450) 10^3/ul MPV 8.3 (7.4-10.4) fL Neut % (Auto) 70.4 % Lymph % (Auto) 15.0 % Walsh % (Auto) 12.5 % Eos % (Auto) 1.3 % Baso % (Auto) 0.8 % Absolute Neuts (auto) 5.8 (1.5-7.7) 10^3/ul Absolute Lymphs (auto) 1.2 (1.0-4.8) 10^3/ul Absolute Monos (auto) 1.0 H (0-0.8) 10^3/ul Absolute Eos (auto) 0.1 (0-0.6) 10^3/ul Absolute Basos (auto) 0.1 (0-0.2) 10^3/ul Absolute Nucleated RBC 0 10^3/ul Nucleated RBC % 0 ABG pH (7.35-7.45) ABG pCO2 (35-45) mmHg ABG pO2 (80-100) mmHg ABG HCO3 (19-31) mmol/L ABG O2 Saturation (94.0-98.0) % ABG Base Excess (-2.0-2.0) mmol/L Sodium 139 (135-145) mmol/L Potassium 4.1 (3.5-5.0) mmol/L Chloride 104 (101-111) mmol/L Carbon Dioxide 27 (22-32) mmol/L Anion Gap 8 (2-11) mmol/L BUN 17 (6-24) mg/dL Creatinine 0.87 (0.67-1.17) mg/dL Est GFR ( Amer) 105.3 (>60) Est GFR (Non-Af Amer) 87.0 (>60) BUN/Creatinine Ratio 19.5 (8-20) Glucose 119 H (70-100) mg/dL Lactic Acid (0.5-2.0) mmol/L Calcium 9.1 (8.6-10.3) mg/dL Total Bilirubin 0.90 (0.2-1.0) mg/dL AST 14 (13-39) U/L ALT 11 (7-52) U/L Alkaline Phosphatase 120 H (34-104) U/L Troponin I 0.01 (<0.04) ng/mL C-Reactive Protein 17.58 H (<8.01) mg/L B-Natriuretic Peptide (<=100) pg/mL Total Protein 6.3 L (6.4-8.9) g/dL Albumin 3.8 (3.2-5.2) g/dL Globulin 2.5 (2-4) g/dL Albumin/Globulin Ratio 1.5 (1-3) Urine Color Yellow Urine Appearance Cloudy Urine pH 7.0 (5-9) Ur Specific [place] 1.016 (1.010-1.030) Urine Protein 1+(30 mg/dl) A (Negative) Urine Ketones Negative (Negative) Urine Blood Negative (Negative) Urine Nitrate Negative (Negative) Urine Bilirubin Negative (Negative) Urine Urobilinogen Negative (Negative) Ur Leukocyte Esterase Negative (Negative) Urine WBC (Auto) Absent (Absent) Urine RBC (Auto) Absent (Absent) Urine Bacteria Absent (Absent) Urine Glucose Negative (Negative) Urine Ascorbic Acid * A (Negative) Influenza A (Rapid) (Negative) Influenza B (Rapid) (Negative) 05/05/18 05/05/18 05/05/18 Range/Units 22:06 22:06 22:20 WBC (3.5-10.8) 10^3/ul RBC (4.00-5.40) 10^6/ul Hgb (14.0-18.0) g/dl Hct (42-52) % MCV (80-94) fL MCH (27-31) pg MCHC (31-36) g/dl RDW (10.5-15) % Plt Count (150-450) 10^3/ul MPV (7.4-10.4) fL Neut % (Auto) % Lymph % (Auto) % Walsh % (Auto) % Eos % (Auto) % Baso % (Auto) % Absolute Neuts (auto) (1.5-7.7) 10^3/ul Absolute Lymphs (auto) (1.0-4.8) 10^3/ul Absolute Monos (auto) (0-0.8) 10^3/ul Absolute Eos (auto) (0-0.6) 10^3/ul Absolute Basos (auto) (0-0.2) 10^3/ul Absolute Nucleated RBC 10^3/ul Nucleated RBC % ABG pH (7.35-7.45) ABG pCO2 (35-45) mmHg ABG pO2 (80-100) mmHg ABG HCO3 (19-31) mmol/L ABG O2 Saturation (94.0-98.0) % ABG Base Excess (-2.0-2.0) mmol/L Sodium (135-145) mmol/L Potassium (3.5-5.0) mmol/L Chloride (101-111) mmol/L Carbon Dioxide (22-32) mmol/L Anion Gap (2-11) mmol/L BUN (6-24) mg/dL Creatinine (0.67-1.17) mg/dL Est GFR ( Amer) (>60) Est GFR (Non-Af Amer) (>60) BUN/Creatinine Ratio (8-20) Glucose (70-100) mg/dL Lactic Acid 1.7 (0.5-2.0) mmol/L Calcium (8.6-10.3) mg/dL Total Bilirubin (0.2-1.0) mg/dL AST (13-39) U/L ALT (7-52) U/L Alkaline Phosphatase (34-104) U/L Troponin I (<0.04) ng/mL C-Reactive Protein (<8.01) mg/L B-Natriuretic Peptide 224 H (<=100) pg/mL Total Protein (6.4-8.9) g/dL Albumin (3.2-5.2) g/dL Globulin (2-4) g/dL Albumin/Globulin Ratio (1-3) Urine Color Urine Appearance Urine pH (5-9) Ur Specific [place] (1.010-1.030) Urine Protein (Negative) Urine Ketones (Negative) Urine Blood (Negative) Urine Nitrate (Negative) Urine Bilirubin (Negative) Urine Urobilinogen (Negative) Ur Leukocyte Esterase (Negative) Urine WBC (Auto) (Absent) Urine RBC (Auto) (Absent) Urine Bacteria (Absent) Urine Glucose (Negative) Urine Ascorbic Acid (Negative) Influenza A (Rapid) Negative (Negative) Influenza B (Rapid) Negative (Negative) 05/05/18 Range/Units 23:05 WBC (3.5-10.8) 10^3/ul RBC (4.00-5.40) 10^6/ul Hgb (14.0-18.0) g/dl Hct (42-52) % MCV (80-94) fL MCH (27-31) pg MCHC (31-36) g/dl RDW (10.5-15) % Plt Count (150-450) 10^3/ul MPV (7.4-10.4) fL Neut % (Auto) % Lymph % (Auto) % Walsh % (Auto) % Eos % (Auto) % Baso % (Auto) % Absolute Neuts (auto) (1.5-7.7) 10^3/ul Absolute Lymphs (auto) (1.0-4.8) 10^3/ul Absolute Monos (auto) (0-0.8) 10^3/ul Absolute Eos (auto) (0-0.6) 10^3/ul Absolute Basos (auto) (0-0.2) 10^3/ul Absolute Nucleated RBC 10^3/ul Nucleated RBC % ABG pH 7.45 (7.35-7.45) ABG pCO2 38 (35-45) mmHg ABG pO2 72 L (80-100) mmHg ABG HCO3 26.7 (19-31) mmol/L ABG O2 Saturation 95.7 (94.0-98.0) % ABG Base Excess 2.4 H (-2.0-2.0) mmol/L Sodium (135-145) mmol/L Potassium (3.5-5.0) mmol/L Chloride (101-111) mmol/L Carbon Dioxide (22-32) mmol/L Anion Gap (2-11) mmol/L BUN (6-24) mg/dL Creatinine (0.67-1.17) mg/dL Est GFR ( Amer) (>60) Est GFR (Non-Af Amer) (>60) BUN/Creatinine Ratio (8-20) Glucose (70-100) mg/dL Lactic Acid (0.5-2.0) mmol/L Calcium (8.6-10.3) mg/dL Total Bilirubin (0.2-1.0) mg/dL AST (13-39) U/L ALT (7-52) U/L Alkaline Phosphatase (34-104) U/L Troponin I (<0.04) ng/mL C-Reactive Protein (<8.01) mg/L B-Natriuretic Peptide (<=100) pg/mL Total Protein (6.4-8.9) g/dL Albumin (3.2-5.2) g/dL Globulin (2-4) g/dL Albumin/Globulin Ratio (1-3) Urine Color Urine Appearance Urine pH (5-9) Ur Specific [place] (1.010-1.030) Urine Protein (Negative) Urine Ketones (Negative) Urine Blood (Negative) Urine Nitrate (Negative) Urine Bilirubin (Negative) Urine Urobilinogen (Negative) Ur Leukocyte Esterase (Negative) Urine WBC (Auto) (Absent) Urine RBC (Auto) (Absent) Urine Bacteria (Absent) Urine Glucose (Negative) Urine Ascorbic Acid (Negative) Influenza A (Rapid) (Negative) Influenza B (Rapid) (Negative) Result Diagrams: 05/05/18 22:06 05/05/18 22:02 Lab Statement: Any lab studies that have been ordered have been reviewed, and results considered in the medical decision making process. Course/Dx - Course Course Of Treatment: Patient complains of progressive exertional SOB 1 week, as well as intermittent abdominal pain with decreased appetite today. Denies fever, cough, sore throat, CP, N/V/D, change in urine, change in BM. Medical history CAD with stents, multiple myeloma, A. fib with ablation, CHF, HLD, DM 2 , as pacemaker, CK D. Abdominal surgical history is none. Patient on Coumadin 2 mg. Patient states he has home O2 when necessary due to prior history of PE. Baseline does not wear oxygen, but states she has been wearing oxygen for the past 7 hours. Physical exam:Diffuse tenderness with palpation to abdomen. Lung sounds diminished bilaterally. Physical exam otherwise unremarkable. Patient on O2 at 2L. Normal vital signs on 2 L O2. BNP 240. Labs otherwise unremarkable, especially for multiple myeloma. EKG paced rhythm. Chest x-ray suggests possible CHF or pneumonia. CT abdomen and pelvis negative for acute process. Incidental finding of 1.6 indeterminate left adrenal nodule, well- nourished conspicuous than on prior CT. Comparison with old studies recommended to assess stability, given patient's history of malignancy. Patient continues to feel shortness of breath with exertion. - Diagnoses Provider Diagnoses: CHF exacerbation Discharge - Sign-Out/Discharge Documenting (check all that apply): Patient Departure - Discharge Plan Condition: Stable Disposition: ADMITTED TO [facility] Referrals: Marcin Watt MD [Primary Care Provider] - Additional Instructions: Incidental finding of 1.6 indeterminate left adrenal nodule, well-nourished conspicuous than on prior CT. - Billing Disposition and Condition Condition: STABLE Disposition: Admitted to [facility]
[2018-05-06 02:48] LABS: INR 1.66 (0.77-1.02)
[2018-05-06] MEDS ORDERED: Acetaminophen TAB* 325 MG PO PRN (04:30)
[2018-05-06] MEDS ORDERED: Albuterol/Ipratropium NEB.SOL* Albuterol 2.5 MG/Ipratropium 0.5 MG 3 ML INH PRN (04:30)
[2018-05-06] MEDS ORDERED: Enoxaparin(*) 100 MG/ML SYR SUBCUT STA (04:42)
[2018-05-06] MEDS ORDERED: oxyCODONE TAB* 5 MG TAB PO PRN (04:44)
[2018-05-06] MEDS ORDERED: Cyclobenzaprine TAB* 10 MG PO PRN (04:44)
[2018-05-06] MEDS ORDERED: Docusate CAP* 100 MG PO PRN (04:44)
[2018-05-06] MEDS ORDERED: Enoxaparin(*) 150 MG/ML 1 ML SYRINGE SUBCUT ONE (05:00)
[2018-05-06 05:07] LABS: ABS Basophils 0.1 10^3/ul (0-0.2); ABS Eosinophils 0 10^3/ul (0-0.6); ABS Lymphocytes 1.5 10^3/ul (1.0-4.8); ABS Neutrophils 4.5 10^3/ul (1.5-7.7); ABS Nucleated RBC 0 10^3/ul; Eosinophil % 0.5 %; Hematocrit 39 % (42-52); Hemoglobin 12.5 g/dl (14.0-18.0); Lymphocyte % 21.4 %; Mean Corpuscular HGB Conc 32 g/dl (31-36); Mean Corpuscular Hemoglobin 24 pg (27-31); Mean Corpuscular Volume 76 fL (80-94); Mean Platelet Volume 8.2 fL (7.4-10.4); Nucleated Red Blood Cells % 0; Platelet Count 213 10^3/ul (150-450); Red Cell Distribution Width 19 % (10.5-15); White Blood Count 7.1 10^3/ul (3.5-10.8)
[2018-05-06 05:33] LABS: BUN/Creatinine Ratio 15.6 (8-20); C Reactive Protein 29.1 mg/L (<8.01); Calcium 9.2 mg/dL (8.6-10.3); EGFR Non-African American 77.7 (>60); Magnesium 1.7 mg/dL (1.9-2.7); Potassium 3.7 mmol/L (3.5-5.0)
--- NOTE | 2018-05-06 05:44 | ADMNOTE ---
Subjective Date of Service: 05/06/18 Interval History: code status full this is admission h/p hpi this is a 68 yr old wm with hx of mm mets to left shoulder on monthly chemo ( last chemo was 04/28/2018 ) hx of copd on prn oxygen hx of cad with paf s/p ppm hx of pe has been on coumadin presented to er with worsening cuellar for one week. pt thought it would go away but it did not. he also c/o mild suprapubic abd pain level 3/10 nothing makes it better or worse dull achy pain ---> pt went for ct abd/pelvis with iv contrast which came back neg. he got one dose of iv lasix from er and his cuellar was gone when seen by this sql report writer. says that he had echo done some time this year but last stress test was few years ago. phx multiple myeloma dxd 2012 with mets to left shoulder 08/2017 hx of pathological fracture of left hip 2014 s/p orif, currently on monthly chemo with last chemo done 04/28/2018 copd on prn oxygen cad with stent to lad chronic systolic hf with ef 35-40 percent prior, most recent echo may be done in cardio office type ii dm gerd hyperlipidemia htn oa a fib s/p ppm on coumadin hx of pe 06/2016 hx of pud elizabeth but non compliant with cpap vs bipap morbid obesity with bmi 31 pshx s/p b/l knee arthroplasty s/p colostomy s/p ppm s/p left hip orif s/p tonsilectomy social hx 30 yrs hx of cig but quit about 7 yrs ago no etoh or ivda surrogate is his partner silvestre arreolaon phone [phone] fhx sister + cva Review of Systems - Measurements Intake and Output: Intake and Output Last 24 Hours 05/03/18 05/04/18 05/05/18 05/06/18 06:59 06:59 06:59 06:59 Output Total 2400 Balance -2400 Weight 251 lb Output: Urine 2400 - Review of Systems General Comments: pertinent as per hpi Objective Active Medications: Acetaminophen (Tylenol Tab*) 650 mg PO Q6H PRN PRN Reason: FEVER/PAIN Albuterol/Ipratropium (Duoneb (Albuterol 2.5 Mg/Ipratropium 0.5 Mg)) 1 neb INH [id number] AWAKE PRN PRN Reason: sob/wheexing Amoxicillin/Clavulanate Potassium (Augmentin Tab*) 500 mg PO BID [facility] Atorvastatin Calcium (Lipitor*) 20 mg PO DAILY [facility] Calcium Carbonate (Calcium Carbonate Tab*) 1,250 mg PO DAILY [facility] Cyanocobalamin (Vitamin B12 Tab*) 1,000 mcg PO DAILY [facility] Cyclobenzaprine HCl (Flexeril Tab*) 10 mg PO BID PRN PRN Reason: SPASMS - MUSCLE Digoxin (Lanoxin Tab*) 0.25 mg PO DAILY [facility] Docusate Sodium (Colace Cap*) 200 mg PO BID PRN PRN Reason: CONSTIPATION Ferrous Sulfate (Ferrous Sulfate Tab*) 325 mg PO TID [facility] Gabapentin (Neurontin Cap(*)) 300 mg PO BEDTIME [facility] Insulin Human Regular (Insulin Regular(*)) 0 units SUBCUT Q6HR [facility]; Protocol Metoprolol Succinate (Toprol Xl Tab*) 25 mg PO BEDTIME [facility] Metoprolol Succinate (Toprol Xl Tab*) 100 mg PO QAM [facility] Non-Formulary Medication (Cholecalciferol (Vitamin D3) [Vitamin D3]) 3,000 unit PO DAILY [facility] Non-Formulary Medication (Diltiazem Hcl [Cardizem La]) 360 mg PO DAILY [facility] Non-Formulary Medication (Iron Polysaccharide Complex [Ferrex 150]) 150 mg PO BID [facility] Non-Formulary Medication (Magnesium Oxide [Magnesium]) 500 mg PO BID [facility] Oxycodone HCl (Roxycodone Tab*) 5 mg PO Q6HR PRN PRN Reason: PAIN Pantoprazole Sodium (Protonix Tab (Nf)) 40 mg PO BID [facility] Ramipril (Altace Cap*) 2.5 mg PO BID [facility] Sertraline HCl (Zoloft*) 100 mg PO DAILY [facility] Tamsulosin HCl (Flomax Cap*) 0.4 mg PO BEDTIME [facility] Warfarin Sodium (Coumadin Tab(*)) 4 mg PO DAILY [facility]; Protocol Vital Signs - 8 hr 05/05/18 05/05/18 05/05/18 21:45 22:00 22:15 Temperature Pulse Rate 70 70 70 Respiratory 37 34 36 Rate Blood Pressure 163/89 165/93 (mmHg) O2 Sat by Pulse 100 100 100 Oximetry 05/05/18 05/05/18 05/05/18 23:00 23:07 23:15 Temperature Pulse Rate 70 71 71 Respiratory 22 Rate Blood Pressure 156/78 174/84 (mmHg) O2 Sat by Pulse 100 98 95 Oximetry 05/05/18 05/05/18 05/06/18 23:40 23:46 00:00 Temperature Pulse Rate 72 70 78 Respiratory 31 25 30 Rate Blood Pressure 156/69 (mmHg) O2 Sat by Pulse 94 94 95 Oximetry 05/06/18 05/06/18 05/06/18 00:15 00:47 01:00 Temperature Pulse Rate 73 77 71 Respiratory 25 20 29 Rate Blood Pressure 174/97 170/66 (mmHg) O2 Sat by Pulse 98 98 98 Oximetry 05/06/18 05/06/18 05/06/18 01:15 01:45 02:00 Temperature Pulse Rate 77 71 71 Respiratory 37 32 32 Rate Blood Pressure 172/109 168/101 (mmHg) O2 Sat by Pulse 100 99 99 Oximetry 05/06/18 05/06/18 05/06/18 02:15 02:45 03:00 Temperature Pulse Rate 73 71 70 Respiratory 32 28 28 Rate Blood Pressure 175/106 172/98 (mmHg) O2 Sat by Pulse 99 99 98 Oximetry 05/06/18 05/06/18 05/06/18 03:16 04:00 04:50 Temperature Pulse Rate 70 70 74 Respiratory 20 28 39 Rate Blood Pressure 149/87 143/90 (mmHg) O2 Sat by Pulse 99 100 100 Oximetry 05/06/18 05:31 Temperature 97.6 F Pulse Rate 70 Respiratory 19 Rate Blood Pressure 151/69 (mmHg) O2 Sat by Pulse 97 Oximetry Oxygen Devices in Use Now: None Appearance: nad Eyes: No Scleral Icterus, PERRLA Ears/Nose/Mouth/Throat: NL Teeth, Lips, Gums, Clear Oropharnyx, Mucous Membranes Moist Neck: NL Appearance and Movements; NL JVP, Trachea Midline, No Thyroid Enlargement, Masses Respiratory: Symmetrical Chest Expansion and Respiratory Effort, Clear to Auscultation, - - decreased b/s b/l Cardiovascular: NL Sounds; No Murmurs; No JVD, - Abdominal: NL Sounds; No Tenderness; No Distention Extremities: - - trace pedal edema able to raise ue and le against gravity b/l Skin: No Rash or Ulcers Neurological: Alert and Oriented x 3, NL Sensation, NL Muscle Strength and Tone Result Diagrams: 05/06/18 04:49 05/06/18 04:49 Additional Lab and Data: Lab Results 05/05/18 05/05/18 05/05/18 Range/Units 21:43 22:02 22:06 WBC 8.3 (3.5-10.8) 10^3/ul RBC 4.99 (4.00-5.40) 10^6/ul Hgb 12.2 L (14.0-18.0) g/dl Hct 39 L (42-52) % MCV 77 L (80-94) fL MCH 25 L (27-31) pg MCHC 32 (31-36) g/dl RDW 19 H (10.5-15) % Plt Count 213 (150-450) 10^3/ul MPV 8.3 (7.4-10.4) fL Neut % (Auto) 70.4 % Lymph % (Auto) 15.0 % [place] % (Auto) 12.5 % Eos % (Auto) 1.3 % Baso % (Auto) 0.8 % Absolute Neuts (auto) 5.8 (1.5-7.7) 10^3/ul Absolute Lymphs (auto) 1.2 (1.0-4.8) 10^3/ul Absolute Monos (auto) 1.0 H (0-0.8) 10^3/ul Absolute Eos (auto) 0.1 (0-0.6) 10^3/ul Absolute Basos (auto) 0.1 (0-0.2) 10^3/ul Absolute Nucleated RBC 0 10^3/ul Nucleated RBC % 0 ABG pH (7.35-7.45) ABG pCO2 (35-45) mmHg ABG pO2 (80-100) mmHg ABG HCO3 (19-31) mmol/L ABG O2 Saturation (94.0-98.0) % ABG Base Excess (-2.0-2.0) mmol/L Sodium 139 (135-145) mmol/L Potassium 4.1 (3.5-5.0) mmol/L Chloride 104 (101-111) mmol/L Carbon Dioxide 27 (22-32) mmol/L Anion Gap 8 (2-11) mmol/L BUN 17 (6-24) mg/dL Creatinine 0.87 (0.67-1.17) mg/dL Est GFR ( Amer) 105.3 (>60) Est GFR (Non-Af Amer) 87.0 (>60) BUN/Creatinine Ratio 19.5 (8-20) Glucose 119 H (70-100) mg/dL Lactic Acid (0.5-2.0) mmol/L Calcium 9.1 (8.6-10.3) mg/dL Total Bilirubin 0.90 (0.2-1.0) mg/dL AST 14 (13-39) U/L ALT 11 (7-52) U/L Alkaline Phosphatase 120 H (34-104) U/L Troponin I 0.01 (<0.04) ng/mL C-Reactive Protein 17.58 H (<8.01) mg/L B-Natriuretic Peptide (<=100) pg/mL Total Protein 6.3 L (6.4-8.9) g/dL Albumin 3.8 (3.2-5.2) g/dL Globulin 2.5 (2-4) g/dL Albumin/Globulin Ratio 1.5 (1-3) Urine Color Yellow Urine Appearance Cloudy Urine pH 7.0 (5-9) Ur Specific [place] 1.016 (1.010-1.030) Urine Protein 1+(30 mg/dl) A (Negative) Urine Ketones Negative (Negative) Urine Blood Negative (Negative) Urine Nitrate Negative (Negative) Urine Bilirubin Negative (Negative) Urine Urobilinogen Negative (Negative) Ur Leukocyte Esterase Negative (Negative) Urine WBC (Auto) Absent (Absent) Urine RBC (Auto) Absent (Absent) Urine Bacteria Absent (Absent) Urine Glucose Negative (Negative) Urine Ascorbic Acid * A (Negative) Influenza A (Rapid) (Negative) Influenza B (Rapid) (Negative) 05/05/18 05/05/18 05/05/18 Range/Units 22:06 22:06 22:20 WBC (3.5-10.8) 10^3/ul RBC (4.00-5.40) 10^6/ul Hgb (14.0-18.0) g/dl Hct (42-52) % MCV (80-94) fL MCH (27-31) pg MCHC (31-36) g/dl RDW (10.5-15) % Plt Count (150-450) 10^3/ul MPV (7.4-10.4) fL Neut % (Auto) % Lymph % (Auto) % [place] % (Auto) % Eos % (Auto) % Baso % (Auto) % Absolute Neuts (auto) (1.5-7.7) 10^3/ul Absolute Lymphs (auto) (1.0-4.8) 10^3/ul Absolute Monos (auto) (0-0.8) 10^3/ul Absolute Eos (auto) (0-0.6) 10^3/ul Absolute Basos (auto) (0-0.2) 10^3/ul Absolute Nucleated RBC 10^3/ul Nucleated RBC % ABG pH (7.35-7.45) ABG pCO2 (35-45) mmHg ABG pO2 (80-100) mmHg ABG HCO3 (19-31) mmol/L ABG O2 Saturation (94.0-98.0) % ABG Base Excess (-2.0-2.0) mmol/L Sodium (135-145) mmol/L Potassium (3.5-5.0) mmol/L Chloride (101-111) mmol/L Carbon Dioxide (22-32) mmol/L Anion Gap (2-11) mmol/L BUN (6-24) mg/dL Creatinine (0.67-1.17) mg/dL Est GFR ( Amer) (>60) Est GFR (Non-Af Amer) (>60) BUN/Creatinine Ratio (8-20) Glucose (70-100) mg/dL Lactic Acid 1.7 (0.5-2.0) mmol/L Calcium (8.6-10.3) mg/dL Total Bilirubin (0.2-1.0) mg/dL AST (13-39) U/L ALT (7-52) U/L Alkaline Phosphatase (34-104) U/L Troponin I (<0.04) ng/mL C-Reactive Protein (<8.01) mg/L B-Natriuretic Peptide 224 H (<=100) pg/mL Total Protein (6.4-8.9) g/dL Albumin (3.2-5.2) g/dL Globulin (2-4) g/dL Albumin/Globulin Ratio (1-3) Urine Color Urine Appearance Urine pH (5-9) Ur Specific [place] (1.010-1.030) Urine Protein (Negative) Urine Ketones (Negative) Urine Blood (Negative) Urine Nitrate (Negative) Urine Bilirubin (Negative) Urine Urobilinogen (Negative) Ur Leukocyte Esterase (Negative) Urine WBC (Auto) (Absent) Urine RBC (Auto) (Absent) Urine Bacteria (Absent) Urine Glucose (Negative) Urine Ascorbic Acid (Negative) Influenza A (Rapid) Negative (Negative) Influenza B (Rapid) Negative (Negative) 05/05/18 Range/Units 23:05 WBC (3.5-10.8) 10^3/ul RBC (4.00-5.40) 10^6/ul Hgb (14.0-18.0) g/dl Hct (42-52) % MCV (80-94) fL MCH (27-31) pg MCHC (31-36) g/dl RDW (10.5-15) % Plt Count (150-450) 10^3/ul MPV (7.4-10.4) fL Neut % (Auto) % Lymph % (Auto) % [place] % (Auto) % Eos % (Auto) % Baso % (Auto) % Absolute Neuts (auto) (1.5-7.7) 10^3/ul Absolute Lymphs (auto) (1.0-4.8) 10^3/ul Absolute Monos (auto) (0-0.8) 10^3/ul Absolute Eos (auto) (0-0.6) 10^3/ul Absolute Basos (auto) (0-0.2) 10^3/ul Absolute Nucleated RBC 10^3/ul Nucleated RBC % ABG pH 7.45 (7.35-7.45) ABG pCO2 38 (35-45) mmHg ABG pO2 72 L (80-100) mmHg ABG HCO3 26.7 (19-31) mmol/L ABG O2 Saturation 95.7 (94.0-98.0) % ABG Base Excess 2.4 H (-2.0-2.0) mmol/L Sodium (135-145) mmol/L Potassium (3.5-5.0) mmol/L Chloride (101-111) mmol/L Carbon Dioxide (22-32) mmol/L Anion Gap (2-11) mmol/L BUN (6-24) mg/dL Creatinine (0.67-1.17) mg/dL Est GFR ( Amer) (>60) Est GFR (Non-Af Amer) (>60) BUN/Creatinine Ratio (8-20) Glucose (70-100) mg/dL Lactic Acid (0.5-2.0) mmol/L Calcium (8.6-10.3) mg/dL Total Bilirubin (0.2-1.0) mg/dL AST (13-39) U/L ALT (7-52) U/L Alkaline Phosphatase (34-104) U/L Troponin I (<0.04) ng/mL C-Reactive Protein (<8.01) mg/L B-Natriuretic Peptide (<=100) pg/mL Total Protein (6.4-8.9) g/dL Albumin (3.2-5.2) g/dL Globulin (2-4) g/dL Albumin/Globulin Ratio (1-3) Urine Color Urine Appearance Urine pH (5-9) Ur Specific [place] (1.010-1.030) Urine Protein (Negative) Urine Ketones (Negative) Urine Blood (Negative) Urine Nitrate (Negative) Urine Bilirubin (Negative) Urine Urobilinogen (Negative) Ur Leukocyte Esterase (Negative) Urine WBC (Auto) (Absent) Urine RBC (Auto) (Absent) Urine Bacteria (Absent) Urine Glucose (Negative) Urine Ascorbic Acid (Negative) Influenza A (Rapid) (Negative) Influenza B (Rapid) (Negative) Microbiology and Other Data: Microbiology 05/05/18 22:02 Influenza Types A,B Antigen - Final Nasopharyngeal Specimen received for Influenza A/B Molecular testing EKG Data: paced Assess/Plan/Problems-Billing Assessment: 68 yr old wm with multiple medical problems including cad a fib s/p ppm copd on prn oxygen chronic systolic hf hx of pe once on coumadin presented with cuellar with some vagaue abd pain ct of abd neg bnp is 200s - Patient Problems (1) CUELLAR (dyspnea on exertion) Current Visit: Yes Status: Acute Code(s): R06.09 - OTHER FORMS OF DYSPNEA SNOMED Code(s): 32294822 Comment: could be multiple etilogy as the causes ---> with his cuellar c/o cardio seems to be a concern than worsening pe vs copd excerbaiton - tele with cherelle - nuclear stress test - continue all his home cardiac meds (2) CAD (coronary artery disease) Current Visit: Yes Status: Acute Code(s): I25.10 - ATHSCL HEART DISEASE OF [place] CORONARY ARTERY W/O ANG PCTRS SNOMED Code(s): 22692745 Comment: tele with cherelle nuclear stress (3) COPD (chronic obstructive pulmonary disease) Current Visit: Yes Status: Acute Code(s): J44.9 - CHRONIC OBSTRUCTIVE PULMONARY DISEASE, UNSPECIFIED SNOMED Code(s): 05204607 (4) Chronic systolic heart failure Current Visit: Yes Status: Acute Code(s): I50.22 - CHRONIC SYSTOLIC ( CONGESTIVE) HEART FAILURE SNOMED Code(s): 157279259 Comment: got one dose of lasix iv from er despite his bnp is only 200s pt is not on diuretic at home might consider to do lasix 20 mg qod if needed upon d/c if nuclear stress is neg (5) Pulmonary embolism Current Visit: Yes Status: Acute Code(s): I26.99 - OTHER PULMONARY EMBOLISM WITHOUT ACUTE COR PULMONALE SNOMED Code(s): 15206214 Comment: stable since he was tirated off oxygen and is not sob. pt already had iv contrast for his abd upon admission from er and can not have another ct with contrast within 24 hrs but this sql report writer has less concern reg worsening pe despite his inr is 1.66 (6) A-fib Current Visit: Yes Status: Acute Code(s): I48.91 - UNSPECIFIED ATRIAL FIBRILLATION SNOMED Code(s): 41645202 Comment: s/p ppm stable continue current mgt (7) Multiple myeloma Current Visit: Yes Status: Acute Code(s): C90.00 - MULTIPLE MYELOMA NOT HAVING ACHIEVED REMISSION SNOMED Code(s): 505287986 Comment: stable continue outpt chemo as per onc not leukopenia or thrombopneia (8) ELIZABETH (obstructive sleep apnea) Current Visit: Yes Status: Acute Code(s): G47.33 - OBSTRUCTIVE SLEEP APNEA ( ADULT) (PEDIATRIC) SNOMED Code(s): 85733955 (9) Noncompliance Current Visit: Yes Status: Acute Code(s): Z91.19 - PATIENT'S NONCOMPLIANCE W OTH MEDICAL TREATMENT AND REGIMEN SNOMED Code(s): 1177223 Comment: non compliant with cpap supportive care (10) Iron deficiency anemia Current Visit: No Status: Acute Code(s): D50.9 - IRON DEFICIENCY ANEMIA, UNSPECIFIED SNOMED Code(s): 59377762 Comment: Continue iron sulfate. H/H stable at baseline. continue outpt meds as tolerated (11) Type 2 diabetes mellitus Current Visit: No Status: Acute Comment: - oral hypoglycemia on hold while npo for nuclear stress - Continue low dose Lantus and Lispro SS. - ck a1c (12) Subtherapeutic anticoagulation Current Visit: Yes Status: Acute Code(s): Z51.81 - ENCOUNTER FOR THERAPEUTIC DRUG LEVEL MONITORING; Z79.01 - CUSTODIAL (CURRENT) USE OF ANTICOAGULANTS SNOMED Code(s): 73584280 Comment: will overlap with lovenox while increase coumadin to 4 mg daily and inr to be checked tmr
[2018-05-06 07:04] LABS: Urine Appearance Clear; Urine Bilirubin Negative (Negative); Urine Blood Negative (Negative); Urine Color Yellow; Urine Glucose Negative (Negative); Urine Ketones Negative (Negative); Urine Nitrite Negative (Negative); Urine Protein Negative (Negative); Urine Specific Gravity 1.025 (1.010-1.030); Urine Urobilinogen Negative (Negative)
[2018-05-06 07:18] LABS: Digoxin < 0.3 ng/ml (0.8-2.0)
[2018-05-06] MEDS: Insulin REGULAR(*) 1 UNITS UNIT SUBCUT SCH ×3 (07:43→17:23)
[2018-05-06] MEDS ORDERED: IRON POLYSACCHARIDE COMPLEX 150 MG PO SCH (09:00)
[2018-05-06] MEDS ORDERED: MAGNESIUM OXIDE 500 MG PO SCH (09:00)
[2018-05-06] MEDS ORDERED: Calcium Carbonate TAB* 1250 MG (CALCIUM 500 MG) PO SCH (09:00)
[2018-05-06] MEDS ORDERED: Digoxin TAB* 0.25 MG PO SCH (09:00)
[2018-05-06] MEDS ORDERED: Cyanocobalamin TAB* 500 MCG PO SCH (09:00)
[2018-05-06] MEDS ORDERED: Cholecalciferol TAB* 1000 UNITS PO SCH (09:00)
[2018-05-06] MEDS ORDERED: Ferrous Sulfate TAB* 325 MG PO SCH (09:00)
[2018-05-06] MEDS ORDERED: Warfarin TAB(*) 3 MG PO SCH (09:00)
[2018-05-06] MEDS ORDERED: Furosemide TAB* 20 MG PO SCH (09:00)
[2018-05-06] MEDS ORDERED: Sertraline* 100 MG TAB PO SCH (09:00)
[2018-05-06] MEDS ORDERED: Ramipril CAP* 2.5 MG PO SCH (09:00)
[2018-05-06] MEDS ORDERED: Omeprazole CAP* 20 MG PO SCH (09:00)
[2018-05-06] MEDS ORDERED: Metoprolol Succinate XL TAB* 100 MG PO SCH (09:00)
[2018-05-06] MEDS ORDERED: Amoxicillin/Clavulanate TAB* 500 MG PO SCH (09:00)
[2018-05-06] MEDS ORDERED: Diltiazem CD CAP* 180 MG PO SCH (09:00)
[2018-05-06] MEDS ORDERED: Atorvastatin* 20 MG TAB PO SCH (09:00)
[2018-05-06] MEDS ORDERED: Regadenoson* 0.4 MG/5 ML SYRINGE ONE (12:05)
[2018-05-06 15:22] VITALS: BP 126/69
[2018-05-06] MEDS ORDERED: Warfarin TAB(*) 4 MG PO SCH (17:00)
[2018-05-06] MEDS ORDERED: Furosemide IV* 10 MG/ML 2 ML VIAL (20 MG) IV ONE (18:00)
[2018-05-06] MEDS ORDERED: Tamsulosin CAP* 0.4 MG PO SCH (21:00)
[2018-05-06] MEDS ORDERED: Gabapentin CAP(*) 300 MG PO SCH (21:00)
[2018-05-06] MEDS ORDERED: Metoprolol Succinate XL TAB* 25 MG PO SCH (21:00)
--- NOTE | 2018-05-09 02:55 | DS ---
CC: Dr. Watt; Dr. Gallagher* DISCHARGE SUMMARY: DATE OF ADMISSION: 05/06/18 DATE OF DISCHARGE: 05/06/18 PRIMARY CARE PROVIDER: Dr. Watt. ATTENDING PHYSICIAN FOR TODAY: Dr. Hermann Gallagher* (dictated by Farrah Sal NP). HOSPITAL COURSE: This is a very pleasant 68-year-old male patient who came to the emergency department for evaluation of persistent shortness of breath. The patient does have a complex past medical history including atrial fibrillation; coronary artery disease; chronic heart failure; GERD; mixed hyperlipidemia; hypertension; obstructive sleep apnea; COPD; multiple myeloma, currently on chemotherapy; history of PE; and history of osteoarthritis. The patient states that he takes oxygen at home as needed for his CAD and COPD; however, he states that his shortness of breath which usually resolves with oxygen was more persistent, he began to be concerned that he had some additional issues with his heart, so he came to the emergency department for evaluation. The patient was placed for a nuclear stress test. Given his extensive history, nuclear stress test was deemed low risk. The patient's shortness of breath did resolve overnight. The patient was not oxygen- dependent in the morning after his study and he wished to be discharged to home. The patient was discharged to home with outpatient followup. Also of significant note is his troponins were negative and he had no further abnormalities other than some mild anemia on his lab work and slightly low magnesium. DISCHARGE DIAGNOSES: 1. Dyspnea on exertion, rule out acute coronary syndrome. 2. History of coronary artery disease, stable. 3. Chronic obstructive pulmonary disease, stable. 4. Chronic heart failure, stable. 5. History of pulmonary embolism, stable. 6. History of atrial fibrillation, currently stable. 7. History of multiple myeloma, currently on chemotherapy, stable. 8. History of obstructive sleep apnea. 9. Iron deficiency anemia, at baseline. 10. Type 2 diabetes mellitus. DISCHARGE MEDICATIONS: Include: 1. Oxycodone 5 mg p.o. q.6 hours as needed. 2. Metformin 500 mg p.o. b.i.d. 3. Glipizide 5 mg p.o. daily. 4. Diltiazem 360 mg p.o. daily. 5. Warfarin 3 mg p.o. daily, up from 2 mg which was his original prescription. 6. Vitamin E cap 400 units p.o. daily. 7. Valtrex 1 g p.o. b.i.d. 8. Flomax 0.4 mg at bedtime. 9. Sertraline 100 mg p.o. daily. 10. Ramipril 2.5 mg b.i.d. 11. Protonix 40 mg b.i.d. 12. Metoprolol succinate XL 100 mg p.o. daily and 25 mg p.o. at bedtime. 13. Magnesium 500 mg p.o. b.i.d. 14. Ferrex 150 mg p.o. b.i.d. 15. Lantus 30 units subcu 24 hours. 16. Gabapentin 300 mg at bedtime. 17. Furosemide 20 mg daily. 18. Ferrous sulfate tablet 325 mg 3 times a day. 19. Docusate 200 mg p.o. b.i.d. 20. Digoxin 0.25 mg p.o. daily. 21. Flexeril 10 mg p.o. b.i.d. as needed. 22. Vitamin B12 1000 mcg daily. 23. Vitamin D3 3000 units p.o. daily. 24. Calcium carbonate 500 mg p.o. daily. 25. Atorvastatin 20 mg p.o. daily. 26. Augmentin 500 mg p.o. b.i.d. Again, only change to the patient's medication regimen is his initial Coumadin dose of 2 mg daily, we increased him to 3 for slightly subtherapeutic INR. REVIEW OF SYSTEMS: On the day of discharge, the patient denies any fever, fatigue, or chills. No chest pain, no shortness of breath, no wheeze, no cough , no fevers or chills, no abdominal pain, no nausea, no vomiting, and no further constitutional complaints. PHYSICAL EXAMINATION: The patient is alert, well appearing, in no acute distress. Vital signs: Blood pressure 126/69, heart rate 73, O2 saturation 96% on room air, respiratory rate 16, temperature 97.7. HEENT: The patient is atraumatic, normocephalic. PERRLA with anicteric sclerae. Oral mucosa is moist. Tongue is midline. Neck is supple, nontender. No JVD noted. No carotid bruits auscultated. Cardiovascular: S1 and S2 present. No murmurs, gallops, or rubs noted. Abdomen is soft, nontender, nondistended. Positive bowel sounds in all 4 quadrants. is deferred. Musculoskeletal: There is no clubbing, no cyanosis, and no edema. Has +2 distal pulses palpable. Full range of motion. Steady gait. Gross motor and sensation are intact. Neurologic: Grossly intact with no focal deficits. Psychiatric: He is cooperative and appropriate. LABORATORY DATA AND IMAGING STUDIES: WBC 7.1, RBC is 5.20, hemoglobin 12.5, hematocrit 39, platelets 213. Sodium 138, potassium 3.7, chloride 101, CO2 of 30, BUN 15 and creatinine 0.96. GFR is 77.7. Glucose 122. Hemoglobin A1c 8.3. Calcium 9.2, magnesium 1.7. Troponin is negative at 0.02 and 0.02. CRP was 29.1. BNP was 224. Vitamin B12 level was 351. Nuclear stress test dated , imaging shows fixed defect of the inferior wall which may represent remote infarct versus an artifact or attenuation. Ejection fraction is improved compared to the 2015 examination at 68%. ASSESSMENT: Low risk, based on imaging criteria from ACC/AHA 2002 guidelines. DISPOSITION: The patient was discharged to home in stable condition. All questions were answered. FOLLOWUP: The patient was instructed to follow up with his primary care provider, Dr. Watt, on an as needed basis. DIET: Diabetic, heart-healthy as tolerated. ACTIVITY: As tolerated. The patient was discharged in stable condition. All questions were answered. The patient stated his understanding of his discharge medications and followup. TIME SPENT: Thirty five minutes interfacing with the patient and on discharge plan. FARRAH SAL NP [id number]/[facility] #: [id number] MATT
== END 2018-05-06 18:20 | disposition home or self-care (01) ==
LOC: ED 21:04 → MEDTELE 05-06 04:30 → INTOOBSV 05-06 04:30
PROVIDERS: ADMIT Internal Medicine; ATTEND Internal Medicine
DX: R06.00 Dyspnea, unspecified (principal); I25.10 Atherosclerotic heart disease of native coronary artery without angina pectoris; J44.9 Chronic obstructive pulmonary disease, unspecified; I50.9 Heart failure, unspecified; Z86.711 Personal history of pulmonary embolism; I48.91 Unspecified atrial fibrillation; Z85.79 Personal history of other malignant neoplasms of lymphoid, hematopoietic and related tissues; G47.33 Obstructive sleep apnea (adult) (pediatric); D64.9 Anemia, unspecified; E11.9 Type 2 diabetes mellitus without complications; Z92.21 Personal history of antineoplastic chemotherapy; Z79.01 Long term (current) use of anticoagulants; Z95.5 Presence of coronary angioplasty implant and graft; Z87.891 Personal history of nicotine dependence
CPT/HCPCS: 36415; 71046; 74177; 78452; 80048; 80053; 80162; 81003; 81015; 82607; 82803; 83036; 83605; 83735; 83880; 84484; 85025; 85610; 86140; 87040; 87077; 87205; 93005; 93017; 96372; 96374; 96375; 99285; A9270-GY; A9502; G0378; J1650; J1940; J2785; Q9967

== ENCOUNTER → 2018-08-26 07:42 | Day surgery (SDC) | payer MEDICARE, OTHER ==
[~2018-08-26 07:42] MED LIST changes: +Acetaminophen TAB* 325 MG PO PRN; +Benzocaine/Butamben/Tetracain (CETACAINE - SINGLE USE) 5 gm TOPICAL ONE; -Buffered Lidocaine 0.9% SYRIN* 5 ML/SYR SYRINGE INTRADERM ONE; +DiMENhydriNATE IV* 50 MG/ML VIAL IV PUSH PRN; +Famotidine IV* 10 MG/ML 2 ML (20 mg) ONE; +Lidocaine 2% PF * 5 ML VIAL ONE; +Midazolam* 1 MG/ML 2 ML VIAL (2 MG) ONE; +Naloxone* 0.4 MG/ML 1 ML VIAL IV PRN; +Ondansetron INJ* 2 MG/ML VIAL IV PRN; +Ondansetron INJ* 2 MG/ML VIAL ONE; +Phenylephrine 40 MCG/ML SYRINGE ONE; +Propofol* 10 MG/ML 20 ML BTL ONE; +Succinylcholine* 20 MG/ML 10 ML VIAL ONE; +fentaNYL* 50 MCG/ML 2 ML VIAL (100 MCG VIAL) IV PRN; +fentaNYL* 50 MCG/ML 2 ML VIAL (100 MCG VIAL) ONE
[2018-08-26 12:42] VITALS: BP 152/93
--- NOTE | 2018-08-26 13:45 | PRO ---
BRONCHOSCOPY REPORT: DATE OF PROCEDURE: 08/26/18 PROCEDURE PERFORMED: Bronchoscopy with endobronchial ultrasound-guided fine needle aspiration from mediastinal nodes. PRE-PROCEDURAL DIAGNOSIS: PET-positive lymph nodes. ANESTHESIA: General anesthesia. ANESTHESIOLOGIST: Dr. Dowell. DESCRIPTION OF PROCEDURE: Informed consent was obtained from the patient prior to the procedure after all the risks and benefits were thoroughly explained. Appropriate time-out was performed and agreed on by attending staff. A flexible Ambu aScope was inserted through ET tube for airway inspection. ET tube positioning was confirmed to be 2 cm above the level of poppy. Bronchoscope was then advanced into the left bronchial tree, which was inspected. No significant endobronchial lesions were noted. Bronchoscope was then advanced into the right bronchial tree, which was inspected. No endobronchial lesions were noted. Station 7 lymph node was mildly enlarged and was accessed with 3 passes. No lymphatic tissue was seen. Station R4 was then accessed with 3 passes. Rapid onsite evaluation revealed lymphatic tissue with no malignant cells. No other lymph nodes were enlarged on EBUS to be sampled. The patient tolerated the procedure well. The patient was extubated and seen in Recovery in optimal condition. [id number]/[facility] #: [id number] [facility]
== END | disposition home or self-care (01) ==
LOC: OR 07:42
PROVIDERS: ATTEND Internal Medicine
DX: R59.0 Localized enlarged lymph nodes (principal); I50.9 Heart failure, unspecified; I48.91 Unspecified atrial fibrillation; F32.9 Major depressive disorder, single episode, unspecified; C90.00 Multiple myeloma not having achieved remission; Z87.891 Personal history of nicotine dependence; Z88.8 Allergy status to other drugs, medicaments and biological substances
CPT/HCPCS: J0330; J2250; J2405; J2704; J3010

== ENCOUNTER 2018-08-31 03:20 | Emergency (ER) | payer MEDICARE, OTHER ==
--- NOTE | 2018-08-31 03:25 | ED ---
Back Pain - HPI Summary HPI Summary: A 68 y/o M with pert PMHx: multiple myeloma, DM presents to ED with c/o severe back pain on lateral sides onset 06/16/18. Denies urinary sx. Aggravating factors: movement. He ambulates with a walker. He had a Watchman placed at [facility] on that date and has had severe back pain ever since. Pt takes Morphine 15 mg BID which is not alleviating his pain. He recently finished Prednisone. He sees Dr. Whitmore and Dr. Reyes. He's scheduled to see Dr. Reyes at [address] Whitmore at 1000 this date. - History of Current Complaint Stated Complaint: BACK PAIN PER PT. Hx Obtained From: Patient, Family/Bait Maker - partner Onset/Duration: Lasting Weeks, Still Present Onset/Duration: Started Weeks Ago, Still Present Timing: Constant Back Pain Location: Is Discrete @ - lateral back Severity Currently: Severe Pain Intensity: 10 Pain Scale Used: 0-10 Numeric Aggravating Symptom(s): Movement Associated Signs And Symptoms: Negative: Bladder Incontinence - Allergies/Home Medications Allergies/Adverse Reactions: Allergies Allergy/AdvReac Type Severity Reaction Status Date / Time ibuprofen Allergy GI Upset Verified 08/31/18 03:29 pregabalin Allergy Swelling Verified 08/31/18 03:29 Home Medications: Home Medications Clopidogrel 75 mg PO DAILY 08/31/18 [History Confirmed 08/31/18] Insulin Glargine,Hum.rec.anlog [Lantus Solostar 5x3 ML PENS] 30 units SUBCUT BEDTIME 08/31/18 [History Confirmed 08/31/18] PMH/Surg Hx/FS Hx/Imm Hx Previously Healthy: No Endocrine/Hematology History: Reports: Hx Anticoagulant Therapy, Hx Bone Marrow Disease - MULTIPLE MYELOMA, Hx Diabetes - Type II, Hx Anemia - HX OF WITH TRANSFUSIONS IN 06/2013, Other Endocrine/Hematological Disorders - multiple myeloma Denies: Hx Thyroid Disease Cardiovascular History: Reports: Hx Cardiomegaly, Hx Congestive Heart Failure, Hx Coronary Artery Disease - 2013 Stent LAD, Hx Hypercholesterolemia, Hx Hypertension - on meds, Hx Pacemaker/ICD - 2014, Hx Syncope, Hx Valvular Heart Disease, Other Cardiovascular Problems/Disorders - AV flaco ablation 03/2018, Watchman 06/2018 Denies: Hx Peripheral Vascular Disease Respiratory History: Reports: Hx Asthma - HAS PRN INHALERS, Hx Chronic Obstructive Pulmonary Disease (COPD) - 2-3 liters O2 at home, Hx Pulmonary Edema , Hx Pulmonary Embolism - 2016, Hx Sleep Apnea - NO CPAP, Other Respiratory Problems/Disorders - History of pneumonia 2014-Respiratory Failure-intubated GI History: Reports: Hx Gastroesophageal Reflux Disease - on medication, Hx Hiatal Hernia - Surgery 2017, Hx Ulcer - PUD, Other GI Disorders - GI BLEED 2013 , HX of Gastric Polyp History: Reports: Hx Kidney Infection - Denies: Hx Dialysis, Hx Renal Disease, Other Problems/Disorders Musculoskeletal History: Reports: Hx Arthritis - Fingers, Hx Back Problems, Hx Bursitis - Shoulder, Hx Orthopedic Injury - pelvic fracture 01/2014, Other Musculoskeletal History - Multiple pelvis fractures, Left total hip replacement 2014,UMBILICAL HERNIA Sensory History: Reports: Hx Cataracts - BILATERAL CATARACT EXTRACTIONS & 05/01/16, Hx Contacts or Glasses - Reading glasses, Hx Glaucoma Denies: Hx Deafness, Hx Hearing Aid Opthamlomology History: Reports: Hx Cataracts - BILATERAL CATARACT EXTRACTIONS 03/04/16 & 05/01/16, Hx Contacts or Glasses - Reading glasses, Hx Glaucoma Neurological History: Reports: Hx Nerve Disease - Bilateral Neuropathy knees down to feet, Other Neuro Impairments/Disorders - Syncope 2013 Denies: Hx Seizures, Hx Transient Ischemic Attacks (TIA) Psychiatric History: Reports: Hx Anxiety - Panic attacks, Hx Depression - Cancer History Cancer Type, Location and Year: multiple myeloma Hx Chemotherapy: Yes - 08/24/18 Hx Radiation Therapy: No Hx Palliative Cancer Treatment: No - Surgical History Surgery Procedure, Year, and Place: Cardiac cath/CARDIAC STENT 2013, PACEMAKER 2014, LEFT HIP REPLACEMENT 2014. BILATERAL CATARACTS 2015. CARDIAC ABLATION -[place]. WATCHMAN 06/16/18 [facility]. T SCAN 07/28. UMBILICAL HERNIA REPAIR-[facility]. DENTAL EXTRACTIONS Hx Anesthesia Reactions: No - Immunization History Date of Tetanus Vaccine: PT STATES UNSURE Date of Influenza Vaccine: PT STATES UNSURE Infectious Disease History: Reports: Hx of Known/Suspected MRSA - NOSE Denies: Hx Clostridium Difficile, Hx Hepatitis, Hx Human Immunodeficiency Virus (HIV), Hx Shingles, Hx Tuberculosis, History Other Infectious Disease - Family History Known Family History: Positive: Other - mother had circulation problems, father had angina. - Social History Occupation: Retired Lives: With Family Alcohol Use: None Hx Substance Use: No Substance Use Type: Reports: None Hx Tobacco Use: Yes Smoking Status (MU): Former Smoker Type: Cigarettes Amount Used/How Often: 1/2 PPD OFF AND ON Length of Time of Smoking/Using Tobacco: 20 years Have You Smoked in the Last Year: No Review of Systems Negative: dysuria, hematuria Musculoskeletal: Other - pos: severe back pain All Other Systems Reviewed And Are Negative: Yes Physical Exam - Summary Physical Exam Summary: Appearance: Well-appearing, Well-nourished, lying in bed comfortably Skin: Warm, dry, no obvious rash Eyes: sclera anicteric, no conjunctival pallor ENT: mucous membranes moist, pharynx appears normal Neck: Supple, nontender Respiratory: Clear to auscultation, no signs of respiratory distress Cardiovascular: Normal S1, S2. No murmurs. Normal distal pulses in tibial and radial bilaterally. Abdomen: Soft, nontender, normal active bowel sounds present Musculoskeletal: Normal, Strength/ROM Intact Neurological: A&Ox3, awake and alert, mentation is normal, speech is fluent and appropriate Psychiatric: affect is normal, does not appear anxious or depressed Triage Information Reviewed: Yes Vital Signs Reviewed: Yes Back Pain Course/Dx - Course Course Of Treatment: Pt is a 68 y/o M with multiple myeloma presenting with severe back pain onset 06/16/18, when he had a Watchman placed at [facility]. Pt takes Morphine 15 mg BID which is not alleviating his pain. He's scheduled to see Dr. Reyes at [address] Whitmore, oncology, at 1000 this date. Pt will be discharged. - Diagnoses Provider Diagnoses: Chronic back pain, Multiple myeloma Discharge - Sign-Out/Discharge Documenting (check all that apply): Patient Departure - DC Patient Received Moderate/Deep Sedation with Procedure: No - Discharge Plan Condition: Good Disposition: HOME Patient Education Materials: Chronic Back Pain (DC) Referrals: Adams Whitmore MD [Medical Doctor] - Additional Instructions: Discuss the trouble you're having controlling your pain with Dr. Whitmore. He works with a lot of people with similar pain issues and is best equipped to help you with this. - Billing Disposition and Condition Condition: GOOD Disposition: Home - Attestation Statements Document Initiated by Scribe: Yes Documenting Scribe: SooYoung VanDeMark Provider For Whom Scribe is Documenting (Include Credential): Dr. Jayme Harris MD Scribe Attestation: I, gilberto Burtoned for Dr. Jayme Harris MD on 09/25/18 at 0954. Scribe Documentation Reviewed: Yes Provider Attestation: The documentation as recorded by the jeri, hE Arvizu accurately reflects the service I personally performed and the decisions made by me, Dr. Jayme Harris MD Status of Scribe Document: Viewed
[2018-08-31] MEDS ORDERED: Morphine 10 MG/ML VIAL (1 ml) IM ONE ×2 (03:51→06:45)
[2018-08-31] MEDS ORDERED: metFORMIN* 500 MG TAB PO ONE (03:52)
[2018-08-31] MEDS ORDERED: Insulin GLARGINE(*) 1 UNITS UNIT SUBCUT ONE (03:52)
[2018-08-31 07:43] VITALS: BP 135/79
== END 2018-08-31 07:43 | disposition home or self-care (01) ==
LOC: ED 03:20
DX: M54.9 Dorsalgia, unspecified (principal); Z87.891 Personal history of nicotine dependence; Z79.01 Long term (current) use of anticoagulants; C90.02 Multiple myeloma in relapse; E11.9 Type 2 diabetes mellitus without complications; I11.0 Hypertensive heart disease with heart failure; I50.9 Heart failure, unspecified; I25.10 Atherosclerotic heart disease of native coronary artery without angina pectoris; E78.00 Pure hypercholesterolemia, unspecified; I10 Essential (primary) hypertension; J45.909 Unspecified asthma, uncomplicated; Z86.711 Personal history of pulmonary embolism; F41.9 Anxiety disorder, unspecified; K21.9 Gastro-esophageal reflux disease without esophagitis; Z79.4 Long term (current) use of insulin; Z79.84 Long term (current) use of oral hypoglycemic drugs
CPT/HCPCS: 96372; 99283; A9270-GY; J2270

== ENCOUNTER 2018-10-28 16:13 | Inpatient (IN) | payer MEDICARE, OTHER ==
[2018-10-28] MEDS ORDERED: Acetaminophen TAB* 325 MG PO PRN (16:24)
[2018-10-28] MEDS ORDERED: Albuterol 2.5 MG/3 ML NEB.SOL* (0.083%) INH PRN (16:31)
[2018-10-28] MEDS ORDERED: Docusate CAP* 100 MG PO PRN (16:32)
[2018-10-28] MEDS ORDERED: oxyCODONE TAB* 5 MG TAB PO PRN (16:32)
[2018-10-28] MEDS ORDERED: Dextrose 50% Syringe 50 ML* 25 GM/50 ML SYRINGE IV PUSH PRN (16:46)
[2018-10-28] MEDS: cefTRIAXone(*) 1 GM in NS 0.9% 50 ML* 50 ML IVPB SCH (18:05)
[2018-10-28] MEDS: NS 0.9% 1000 ML** 1,000 ML IV SCH (18:05)
[2018-10-28] MEDS: Azithromycin 500 mg/250 ml NS 500 MG/250 ML BAG IVPB SCH (18:51)
[2018-10-28] MEDS: Enoxaparin(*) 40 MG/0.4 ML SYR SUBCUT SCH (18:52)
[2018-10-28] MEDS: Insulin LISPRO* 1 UNITS UNIT SUBCUT SCH ×2 (18:52→21:23)
[2018-10-28] MEDS: Mometasone/Formoter 200/5 MDI INH SCH ×2 (21:07→21:28)
[2018-10-28] MEDS: Atorvastatin* 10 MG TAB PO SCH (21:22)
[2018-10-28] MEDS: Magnesium Oxide TAB* 400 MG PO SCH (21:22)
[2018-10-28] MEDS: Gabapentin CAP(*) 300 MG PO SCH (21:22)
[2018-10-28] MEDS: Morphine TAB Extended Release (*) 15 MG TAB.ER PO SCH (21:22)
[2018-10-28] MEDS: Insulin GLARGINE(*) 1 UNITS UNIT SUBCUT SCH (21:23)
[2018-10-29] MEDS: NS 0.9% 1000 ML** 1,000 ML IV SCH ×2 (04:01→17:44)
[2018-10-29 06:31] LABS: ABS Lymphocytes 0.9 10^3/ul (1.0-4.8); ABS Monocytes 0.6 10^3/ul (0-0.8); ABS Neutrophils 2.4 10^3/ul (1.5-7.7); Eosinophil % 1.1 %; Hematocrit 33 % (42-52); Hemoglobin 11.1 g/dL (14.0-18.0); Lymphocyte % 22.6 %; Mean Corpuscular HGB Conc 34 g/dL (31-36); Mean Corpuscular Hemoglobin 27 pg (27-31); Mean Corpuscular Volume 81 fL (80-94); Mean Platelet Volume 9.7 fL (7.4-10.4); Nucleated Red Blood Cells % 0.1; Platelet Count 86 10^3/uL (150-450); Red Blood Count 4.07 10^6 /uL (4.18-5.48); Red Cell Distribution Width 21 % (10-15)
[2018-10-29 06:38] LABS: Albumin/Globulin Ratio 1.3 (1-3); BUN/Creatinine Ratio 31.5 (8-20); Calcium 8.7 mg/dL (8.6-10.3); EGFR African American 102.6 (>60); EGFR Non-African American 84.8 (>60); Globulin 2.3 g/dL (2-4); Potassium 4.2 mmol/L (3.5-5.0); Total Bilirubin 0.9 mg/dL (0.2-1.0); Total Protein 5.3 g/dL (6.4-8.9)
[2018-10-29] MEDS: DULoxetine DR CAP* 60 MG CAP.DR PO SCH (07:42)
[2018-10-29] MEDS: Aspirin EC TAB* 81 MG TAB.EC PO SCH (07:42)
[2018-10-29] MEDS: Clopidogrel TAB* 75 MG PO SCH (07:43)
[2018-10-29] MEDS: Pantoprazole TAB * 40 MG TAB PO SCH (07:43)
[2018-10-29] MEDS: Morphine TAB Extended Release (*) 15 MG TAB.ER PO SCH ×2 (07:43→21:09)
[2018-10-29] MEDS: Magnesium Oxide TAB* 400 MG PO SCH ×2 (07:43→21:09)
[2018-10-29] MEDS: Tamsulosin CAP* 0.4 MG PO SCH (07:43)
[2018-10-29] MEDS: Metoprolol Succinate XL TAB* 25 MG PO SCH (07:43)
[2018-10-29] MEDS: Insulin LISPRO* 1 UNITS UNIT SUBCUT SCH ×4 (08:19→21:09)
--- NOTE | 2018-10-29 08:28 | PN ---
Progress Note - Progress Note Date of Service: 10/29/18 SOAP: Subjective: feels a little better than yesterday. coughing. Objective: Vital Signs Temp Pulse Resp BP Pulse Ox 97.9 F 70 20 134/70 100 10/29/18 07:38 10/29/18 07:38 10/29/18 08:06 10/29/18 07:38 10/29/18 03:18 perr eomi op moist, poor dentition rhonchorous breath sounds throughout R>L, mild wheeze s1 s2 nl soft obese NT 1+ LE edema A+O x 3 Laboratory Results - last 24 hr 10/28/18 10/28/18 10/29/18 18:04 20:58 05:46 WBC 4.0 RBC 4.07 L Hgb 11.1 L Hct 33 L MCV 81 MCH 27 MCHC 34 RDW 21 H Plt Count 86 L MPV 9.7 Neut % (Auto) 60.8 Lymph % (Auto) 22.6 Jackson % (Auto) 15.3 Eos % (Auto) 1.1 Baso % (Auto) 0.2 Absolute Neuts (auto) 2.4 Absolute Lymphs (auto) 0.9 L Absolute Monos (auto) 0.6 Absolute Eos (auto) 0.0 Absolute Basos (auto) 0.0 Absolute Nucleated RBC 0.0 Nucleated RBC % 0.1 Sodium Potassium Chloride Carbon Dioxide Anion Gap BUN Creatinine Est GFR ( Amer) Est GFR (Non-Af Amer) BUN/Creatinine Ratio Glucose POC Glucose (mg/dL) 196 H 201 H Calcium Total Bilirubin AST ALT Alkaline Phosphatase Total Protein Albumin Globulin Albumin/Globulin Ratio 10/29/18 05:46 WBC RBC Hgb Hct MCV MCH MCHC RDW Plt Count MPV Neut % (Auto) Lymph % (Auto) Jackson % (Auto) Eos % (Auto) Baso % (Auto) Absolute Neuts (auto) Absolute Lymphs (auto) Absolute Monos (auto) Absolute Eos (auto) Absolute Basos (auto) Absolute Nucleated RBC Nucleated RBC % Sodium 136 Potassium 4.2 Chloride 104 Carbon Dioxide 29 Anion Gap 3 BUN 28 H Creatinine 0.89 Est GFR ( Amer) 102.6 Est GFR (Non-Af Amer) 84.8 BUN/Creatinine Ratio 31.5 H Glucose 87 POC Glucose (mg/dL) Calcium 8.7 Total Bilirubin 0.90 AST 7 L ALT 9 Alkaline Phosphatase 79 Total Protein 5.3 L Albumin 3.0 L Globulin 2.3 Albumin/Globulin Ratio 1.3 Acetaminophen (Tylenol Tab*) 650 mg PO Q4H PRN PRN Reason: FEVER/PAIN Albuterol (Ventolin 2.5 Mg/3 Ml Neb.Zuleika*) 2.5 mg INH Q4H PRN PRN Reason: SHORTNESS OF BREATH Aspirin (Aspirin Ec Tab*) 81 mg PO DAILY [facility] Last Admin: 10/29/18 07:42 Dose: 81 mg Atorvastatin Calcium (Lipitor*) 10 mg PO BEDTIME [facility] Last Admin: 10/28/18 21:22 Dose: 10 mg Clopidogrel Bisulfate (Plavix Tab*) 75 mg PO DAILY [facility] Last Admin: 10/29/18 07:43 Dose: 75 mg Dextrose (D50w Syringe 50 Ml*) 12.5 gm IV PUSH .FOR FS < 60 - SS PRN PRN Reason: FS < 60 Docusate Sodium (Colace Cap*) 200 mg PO BID PRN PRN Reason: CONSTIPATION Last Admin: 10/28/18 18:12 Dose: 200 mg Duloxetine HCl (Cymbalta Cap*) 60 mg PO QAM [facility] Last Admin: 10/29/18 07:42 Dose: 60 mg Enoxaparin Sodium (Lovenox(*)) 40 mg SUBCUT Q24H [facility] Last Admin: 10/28/18 18:52 Dose: 40 mg Gabapentin (Neurontin Cap(*)) 300 mg PO BEDTIME [facility] Last Admin: 10/28/18 21:22 Dose: 300 mg Sodium Chloride (Ns 0.9% 1000 Ml) 1,000 mls @ 100 mls/hr IV PER RATE [facility] Last Admin: 10/29/18 04:01 Dose: 100 mls/hr Ceftriaxone Sodium 1 gm/ (Sodium Chloride) 50 mls @ 200 mls/hr IVPB Q24H [facility] Last Admin: 10/28/18 18:05 Dose: 200 mls/hr Azithromycin (Zithromax 500 Mg/250 Ml) 500 mg in 250 mls @ 250 mls/hr IVPB Q24H [facility] Last Admin: 10/28/18 18:51 Dose: 250 mls/hr Insulin Glargine (Lantus(*)) 30 units SUBCUT BEDTIME [facility] Last Admin: 10/28/18 21:23 Dose: 30 units Insulin Human Lispro (Humalog*) 0 units SUBCUT [facility]; Protocol Last Admin: 10/29/18 08:19 Dose: Not Given Magnesium Oxide (Magox 400 Tab*) 400 mg PO BID [facility] Last Admin: 10/29/18 07:43 Dose: 400 mg Metoprolol Succinate (Toprol Xl Tab*) [facility] Admin: 10/29/18 07:43 Dose: 25 mg Mometasone Furoate/Formoterol Fumar (Dulera 200/5 Mdi*) 2 puff INH BID [facility]; Protocol Last Admin: 10/28/18 21:28 Dose: 2 puff Morphine Sulfate (Ms Contin(*)) 15 mg PO BID [facility] Last Admin: 10/29/18 07:43 Dose: 15 mg Oxycodone HCl (Roxycodone Tab*) 20 mg PO Q4H PRN PRN Reason: PAIN Pantoprazole Sodium (Protonix Tab*) 40 mg PO [facility] Last Admin: 10/29/18 07:43 Dose: 40 mg Tamsulosin HCl (Flomax Cap*) 0.4 mg PO [facility] Last Admin: 10/29/18 07:43 Dose: 0.4 mg Assessment: 68 yo M w multiple myeloma and COPD a/w community acquired PNA. Plan: PNA: cont ceftriaxone/azithro add prednisone 40 mg po daily x 5 days for wheezing/COPD exacerbation cont dulera MIKE: resolved with hydration DM: add back oral meds given steroids as above cont lantus and humalog sliding scale MM: hold treatment given PNA agree with QUIGs and IVIG as outpatient if needed watch platelets on plavix and ASA, may need to hold one of these full code hold lovenox if plts <50k for DVT prophylaxiws
[2018-10-29] MEDS: Mometasone/Formoter 200/5 MDI INH SCH ×2 (08:50→19:26)
[2018-10-29] MEDS: glipiZIDE TAB.XL* 5 MG PO SCH (11:03)
[2018-10-29] MEDS: cefTRIAXone(*) 1 GM in NS 0.9% 50 ML* 50 ML IVPB SCH (17:09)
[2018-10-29] MEDS: metFORMIN* 1,000 MG TAB PO SCH (17:10)
[2018-10-29] MEDS: Enoxaparin(*) 40 MG/0.4 ML SYR SUBCUT SCH (17:10)
[2018-10-29] MEDS: Azithromycin 500 mg/250 ml NS 500 MG/250 ML BAG IVPB SCH (17:46)
[2018-10-29] MEDS: Gabapentin CAP(*) 300 MG PO SCH (21:09)
[2018-10-29] MEDS: Atorvastatin* 10 MG TAB PO SCH (21:09)
[2018-10-29] MEDS: Insulin GLARGINE(*) 1 UNITS UNIT SUBCUT SCH (21:10)
[2018-10-30] MEDS: NS 0.9% 1000 ML** 1,000 ML IV SCH ×2 (05:13→16:37)
[2018-10-30 06:21] LABS: BUN/Creatinine Ratio 27.8 (8-20); Calcium 8.5 mg/dL (8.6-10.3); EGFR African American 117.7 (>60); EGFR Non-African American 97.2 (>60); Potassium 3.9 mmol/L (3.5-5.0)
[2018-10-30 07:16] LABS: Hematocrit 32 % (42-52); Hemoglobin 10.5 g/dL (14.0-18.0); Mean Corpuscular HGB Conc 32 g/dL (31-36); Mean Corpuscular Hemoglobin 26 pg (27-31); Mean Corpuscular Volume 81 fL (80-94); Red Blood Count 3.98 10^6 /uL (4.18-5.48); Red Cell Distribution Width 20 % (10-15); White Blood Count 2.8 10^3/uL (3.5-10.8)
[2018-10-30 07:17] LABS: ABS Eosinophils 0.1 10^3/ul (0-0.6); ABS Lymphocytes 0.7 10^3/ul (1.0-4.8); ABS Monocytes 0.4 10^3/ul (0-0.8); ABS Neutrophils 1.6 10^3/ul (1.5-7.7); Eosinophil % 2.9 %; Lymphocyte % 23.6 %
[2018-10-30 07:18] LABS: Mean Platelet Volume 9.3 fL (7.4-10.4); Platelet Count 89 10^3/uL (150-450)
[2018-10-30] MEDS: Clopidogrel TAB* 75 MG PO SCH (07:36)
[2018-10-30] MEDS: Aspirin EC TAB* 81 MG TAB.EC PO SCH (07:36)
[2018-10-30] MEDS: Tamsulosin CAP* 0.4 MG PO SCH (07:36)
[2018-10-30] MEDS: glipiZIDE TAB.XL* 5 MG PO SCH (07:36)
[2018-10-30] MEDS: Morphine TAB Extended Release (*) 15 MG TAB.ER PO SCH ×2 (07:37→21:39)
[2018-10-30] MEDS: Metoprolol Succinate XL TAB* 25 MG PO SCH (07:37)
[2018-10-30] MEDS: Insulin LISPRO* 1 UNITS UNIT SUBCUT SCH ×4 (07:37→21:20)
[2018-10-30] MEDS: DULoxetine DR CAP* 60 MG CAP.DR PO SCH (07:37)
[2018-10-30] MEDS: metFORMIN* 1,000 MG TAB PO SCH ×2 (07:37→16:37)
[2018-10-30] MEDS: Magnesium Oxide TAB* 400 MG PO SCH ×2 (07:37→21:39)
[2018-10-30] MEDS: Pantoprazole TAB * 40 MG TAB PO SCH (07:37)
[2018-10-30] MEDS: Mometasone/Formoter 200/5 MDI INH SCH ×2 (08:24→19:06)
[2018-10-30] MEDS: Enoxaparin(*) 40 MG/0.4 ML SYR SUBCUT SCH (16:37)
[2018-10-30] MEDS: cefTRIAXone(*) 1 GM in NS 0.9% 50 ML* 50 ML IVPB SCH (16:37)
[2018-10-30] MEDS: Azithromycin 500 mg/250 ml NS 500 MG/250 ML BAG IVPB SCH (17:01)
[2018-10-30] MEDS: guaiFENesin ER TAB 600 MG PO SCH (21:09)
[2018-10-30] MEDS: Atorvastatin* 10 MG TAB PO SCH (21:39)
[2018-10-30] MEDS: Gabapentin CAP(*) 300 MG PO SCH (21:39)
[2018-10-30] MEDS: Insulin GLARGINE(*) 1 UNITS UNIT SUBCUT SCH (21:44)
[2018-10-30] MEDS ORDERED: Insulin GLARGINE(*) 1 UNITS UNIT SUBCUT ONE (22:00)
[2018-10-31] MEDS: NS 0.9% 1000 ML** 1,000 ML IV SCH (04:46)
[2018-10-31] MEDS: Mometasone/Formoter 200/5 MDI INH SCH (07:45)
[2018-10-31] MEDS: Insulin LISPRO* 1 UNITS UNIT SUBCUT SCH ×2 (07:48→13:28)
[2018-10-31] MEDS: guaiFENesin ER TAB 600 MG PO SCH (09:19)
[2018-10-31] MEDS: DULoxetine DR CAP* 60 MG CAP.DR PO SCH (09:19)
[2018-10-31] MEDS: Clopidogrel TAB* 75 MG PO SCH (09:19)
[2018-10-31] MEDS: Aspirin EC TAB* 81 MG TAB.EC PO SCH (09:19)
[2018-10-31] MEDS: Pantoprazole TAB * 40 MG TAB PO SCH (09:20)
[2018-10-31] MEDS: Tamsulosin CAP* 0.4 MG PO SCH (09:20)
[2018-10-31] MEDS: Magnesium Oxide TAB* 400 MG PO SCH (09:20)
[2018-10-31] MEDS: glipiZIDE TAB.XL* 5 MG PO SCH (09:20)
[2018-10-31] MEDS: Morphine TAB Extended Release (*) 15 MG TAB.ER PO SCH (09:20)
[2018-10-31] MEDS: metFORMIN* 1,000 MG TAB PO SCH (09:20)
[2018-10-31] MEDS: Metoprolol Succinate XL TAB* 25 MG PO SCH (09:20)
[2018-10-31 11:57] VITALS: BP 174/79
[2018-10-31] MEDS ORDERED: Insulin GLARGINE(*) 1 UNITS UNIT SUBCUT SCH (21:00)
== END 2018-10-31 16:37 | disposition home or self-care (01) | DRG 194 ==
LOC: MED 16:48
PROVIDERS: ADMIT Internal Medicine Hematology & Oncology; ATTEND Internal Medicine Hematology & Oncology
DX: J18.9 Pneumonia, unspecified organism (principal); N17.9 Acute kidney failure, unspecified; J44.0 Chronic obstructive pulmonary disease with (acute) lower respiratory infection; C90.00 Multiple myeloma not having achieved remission; I48.91 Unspecified atrial fibrillation; N40.0 Benign prostatic hyperplasia without lower urinary tract symptoms; E11.9 Type 2 diabetes mellitus without complications; K21.9 Gastro-esophageal reflux disease without esophagitis; G47.30 Sleep apnea, unspecified; E78.5 Hyperlipidemia, unspecified; M19.90 Unspecified osteoarthritis, unspecified site; I11.0 Hypertensive heart disease with heart failure; G89.29 Other chronic pain; E87.5 Hyperkalemia; E86.1 Hypovolemia; I50.9 Heart failure, unspecified; I25.10 Atherosclerotic heart disease of native coronary artery without angina pectoris; Z96.649 Presence of unspecified artificial hip joint; Z95.0 Presence of cardiac pacemaker; Z95.5 Presence of coronary angioplasty implant and graft; Z87.891 Personal history of nicotine dependence; Z82.3 Family history of stroke; Z86.711 Personal history of pulmonary embolism; Z88.8 Allergy status to other drugs, medicaments and biological substances
CPT/HCPCS: 36415; 80048; 80053; 85025; 87641; 94640; 99220; 99232; A9270-GY; J0456; J0696; J1650

== ENCOUNTER 2018-11-04 22:51 | Observation (INO) | payer MEDICARE, OTHER ==
--- NOTE | 2018-11-04 23:51 | ED ---
Shortness of Breath - HPI Summary HPI Summary: A 68 y/o male accompanied by his friend presents to [facility] with a chief complaint of SOB. He was admitted on 10/28/18 for pneumonia and was discharged on 10/31/18. He felt terrible at home, claiming that he had cough, leg swelling , palpitations, and low glucose since he was discharged. He denies any CP, N/V or abdominal pain. The patient is a diabetic and takes Metformin and insulin. He says that he is on 40mg Lasix, but has not been taking it since being discharged. The patient notes that he has been using O2 more often since being discharged. - History of Current Complaint Chief Complaint: EDShortnessOfBreath Time Seen by Provider: 11/04/18 23:30 Hx Obtained From: Patient Onset/Duration: Sudden Onset, Lasting Days, Still Present Timing: Constant Current Severity: Mild Dyspnea At: Exertion Aggravating Factors: Movement Alleviating Factors: Oxygen Associated Signs & Symptoms: Calf Pain/Swelling, Edema - Allergy/Home Medications Allergies/Adverse Reactions: Allergies Allergy/AdvReac Type Severity Reaction Status Date / Time ibuprofen Allergy GI Upset Verified 08/31/18 03:29 pregabalin Allergy Swelling Verified 08/31/18 03:29 PMH/Surg Hx/FS Hx/Imm Hx Endocrine/Hematology History: Reports: Hx Anticoagulant Therapy, Hx Bone Marrow Disease - MULTIPLE MYELOMA, Hx Diabetes - Type II, Hx Anemia - HX OF WITH TRANSFUSIONS IN 06/2013, Other Endocrine/Hematological Disorders - multiple myeloma Denies: Hx Thyroid Disease Cardiovascular History: Reports: Hx Cardiomegaly, Hx Congestive Heart Failure, Hx Coronary Artery Disease - 2013 Stent LAD, Hx Hypercholesterolemia, Hx Hypertension - on meds, Hx Pacemaker/ICD - 2014, Hx Syncope, Hx Valvular Heart Disease, Other Cardiovascular Problems/Disorders - AV flaco ablation 03/2018, Watchman 06/2018 Denies: Hx Peripheral Vascular Disease Respiratory History: Reports: Hx Asthma - HAS PRN INHALERS, Hx Chronic Obstructive Pulmonary Disease (COPD) - 2-3 liters O2 at home, Hx Pulmonary Edema , Hx Pulmonary Embolism - 2016, Hx Sleep Apnea - NO CPAP, Other Respiratory Problems/Disorders - History of pneumonia 2014-Respiratory Failure-intubated GI History: Reports: Hx Gastroesophageal Reflux Disease - on medication, Hx Hiatal Hernia - Surgery 2017, Hx Ulcer - PUD, Other GI Disorders - GI BLEED 2013 , HX of Gastric Polyp History: Reports: Hx Kidney Infection - 1990s Denies: Hx Dialysis, Hx Renal Disease, Other Problems/Disorders Musculoskeletal History: Reports: Hx Arthritis - Fingers, Hx Back Problems, Hx Bursitis - Shoulder, Hx Orthopedic Injury - pelvic fracture 01/2014, Other Musculoskeletal History - Multiple pelvis fractures, Left total hip replacement 2014,UMBILICAL HERNIA Sensory History: Reports: Hx Cataracts - BILATERAL CATARACT EXTRACTIONS & 05/01/16, Hx Glaucoma Denies: Hx Contacts or Glasses, Hx Deafness, Hx Hearing Aid Opthamlomology History: Reports: Hx Cataracts - BILATERAL CATARACT EXTRACTIONS 03/04/16 & 05/01/16, Hx Glaucoma Denies: Hx Contacts or Glasses Neurological History: Reports: Hx Nerve Disease - Bilateral Neuropathy knees down to feet, Other Neuro Impairments/Disorders - Syncope 2013 Denies: Hx Seizures, Hx Transient Ischemic Attacks (TIA) Psychiatric History: Reports: Hx Anxiety - Panic attacks, Hx Depression Denies: Hx Panic Disorder - Cancer History Cancer Type, Location and Year: multiple myeloma Hx Chemotherapy: Yes - 08/24/18 Hx Radiation Therapy: No Hx Palliative Cancer Treatment: No - Surgical History Surgery Procedure, Year, and Place: Cardiac cath/CARDIAC STENT 2013, PACEMAKER 2014, LEFT HIP REPLACEMENT 2014. BILATERAL CATARACTS 2015. CARDIAC ABLATION -[place]. WATCHMAN 06/16/18 [facility]. T SCAN 07/28. UMBILICAL HERNIA REPAIR-[facility] [place]. DENTAL EXTRACTIONS Hx Anesthesia Reactions: No - Immunization History Date of Tetanus Vaccine: PT STATES UNSURE Date of Influenza Vaccine: PT STATES UNSURE Infectious Disease History: No Infectious Disease History: Reports: Hx of Known/Suspected MRSA - NOSE Denies: Hx Clostridium Difficile, Hx Hepatitis, Hx Human Immunodeficiency Virus (HIV), Hx Shingles, Hx Tuberculosis, History Other Infectious Disease, Traveled Outside the [place] in Last 30 Days - Family History Known Family History: Positive: Other - mother had circulation problems, father had angina. - Social History Alcohol Use: None Hx Substance Use: No Substance Use Type: Reports: None Hx Tobacco Use: Yes Smoking Status (MU): Former Smoker Type: Cigarettes Amount Used/How Often: 1/2 PPD OFF AND ON Length of Time of Smoking/Using Tobacco: 20 years Have You Smoked in the Last Year: No Review of Systems Negative: Fever Positive: Palpitations. Negative: Chest Pain Positive: Shortness Of Breath, Cough Negative: Abdominal Pain, Vomiting, Nausea Positive: Edema All Other Systems Reviewed And Are Negative: Yes Physical Exam - Summary Physical Exam Summary: Constitutional: Well-developed, Well-nourished, Alert. (-) Distressed Skin: Warm, Dry HENT: Normocephalic; Atraumatic Eyes: Conjunctiva normal Neck: Musculoskeletal ROM normal neck. (-) JVD, (-) Stridor, (-) Tracheal deviation Cardio: Regular rate, paced rhythm, Heart sounds normal; Intact distal pulses; symmetric. Pulmonary/Chest wall: diffusely diminished air entry, more pronounced in upper than lower lobes, trace rhonchi in lower lobes, (-) Respiratory distress, (-) Wheezes, (-) Rales Abd: Soft, obese, (-) tenderness, (-) Distension, (-) Guarding, (-) Rebound Musculoskeletal: 3 + pitting edema in lower extremities bilaterally, Neuro: Alert, Oriented x3 Psych: Mood and affect Normal Triage Information Reviewed: Yes Vital Signs On Initial Exam: Initial Vitals Temp Pulse Resp BP Pulse Ox 98.6 F 89 27 158/101 97 11/04/18 22:52 11/04/18 22:52 11/04/18 22:52 11/04/18 22:52 11/04/18 22:52 Vital Signs Reviewed: Yes Diagnostics - Vital Signs Vital Signs Temp Pulse Resp BP Pulse Ox 11/04/18 22:52 98.6 F 89 27 158/101 97 - Laboratory Result Diagrams: 11/05/18 00:11 11/05/18 00:11 Lab Statement: Any lab studies that have been ordered have been reviewed, and results considered in the medical decision making process. - Radiology CXR Radiology Interpretation Completed By: ED Physician Summary of Radiographic Findings: right upper lobe pneumonia is diminished when compared to previous CXR. Pending official imaging report. - CT chest/thorax CTA CT Interpretation Completed By: Radiologist Summary of CT Findings: 1. Limited evaluation of distal segmental and subsegmental branches due to. suboptimal opacification of contrast. However, there is diffusely decreased. contrast filling in the lower segmental branches of the left pulmonary artery. which may represent pulmonary emboli. 2. Small bilateral pleural effusion with adjacent atelectasis vs consolidation. ED physician has reviewed this imaging report. - EKG 00:00 Cardiac Rate: Other Rate - paced rhythm at 70 bpm Summary of EKG Findings: An EKG at 00:00 showed Paced rhythm at 70 bpm Re-Evaluation - Re-Evaluation First Eval Re-Evaluation Time: 02:53 Change: Improved Comment: still SOB, still feels better. BNP is only 525 dont think its fluid over, may be a PE so CTA will be done Second Eval Re-Evaluation Time: 04:53 Change: Improved Course/Dx - Course Course Of Treatment: A 68 y/o male accompanied by his friend presents to [facility] with a chief complaint of SOB. The physical exam revealed diffusely diminished air entry, more pronounced in upper than lower lobes, trace rhonchi in lower lobes,. 3 + pitting edema in lower extremities bilaterally, Regular rate, paced rhythm, abdomen obese but nontender. An EKG at 00:00 showed Paced rhythm at 70 bpm. CXR showed that right upper lobe pneumonia is diminished when compared to previous CXR. Chest/thorax CTA impression: 1. Limited evaluation of distal segmental and subsegmental branches due to. suboptimal opacification of contrast. However, there is diffusely decreased. contrast filling in the lower segmental branches of the left pulmonary artery. which may represent pulmonary emboli. 2. Small bilateral pleural effusion with adjacent atelectasis vs consolidation. In the ED course the patient was given Iodixanol and Lovenox. Case discussed with Dr. Perera, hospitalist, who accepted the patient for admission. The patient will be admitted and is agreeable with this plan. - Diagnoses Provider Diagnoses: Pulmonary embolism - Physician Notifications Discussed Care of Patient With: Frederick Perera Time Discussed With Above Provider: 05:18 Instructed by Provider To: Admit As Inpatient Discharge - Sign-Out/Discharge Documenting (check all that apply): Patient Departure - admit Patient Received Moderate/Deep Sedation with Procedure: No - Discharge Plan Condition: Fair Disposition: ADMITTED TO [facility] Referrals: Marcin Watt MD [Primary Care Provider] - - Billing Disposition and Condition Condition: FAIR Disposition: Admitted to [facility] - Attestation Statements Document Initiated by Scribe: Yes Documenting Scribe: Mitchel Haro Provider For Whom Scribe is Documenting (Include Credential): Maulik Silva MD Scribe Attestation: Mitchel Contreras scribed for Maulik Silva MD on 11/05/18 at 0618. Scribe Documentation Reviewed: Yes Provider Attestation: The documentation as recorded by the scribeMitchel accurately reflects the service I personally performed and the decisions made by me, Maulik Silva MD Status of Scribe Document: Viewed
[2018-11-05 00:18] LABS: Hematocrit 35 % (42-52); Hemoglobin 11.5 g/dL (14.0-18.0); Mean Corpuscular HGB Conc 33 g/dL (31-36); Mean Corpuscular Hemoglobin 27 pg (27-31); Mean Corpuscular Volume 81 fL (80-94); Mean Platelet Volume 8.5 fL (7.4-10.4); Platelet Count 213 10^3/uL (150-450); Red Blood Count 4.34 10^6 /uL (4.18-5.48); Red Cell Distribution Width 20 % (10-15); White Blood Count 4.5 10^3/uL (3.5-10.8)
[2018-11-05 00:29] LABS: INR 1.29 (0.82-1.09)
[2018-11-05 00:36] LABS: Albumin 3.3 g/dL (3.2-5.2); Albumin/Globulin Ratio 1.4 (1-3); BUN/Creatinine Ratio 18.9 (8-20); EGFR African American 126.9 (>60); EGFR Non-African American 104.9 (>60); Globulin 2.4 g/dL (2-4); Magnesium 1.8 mg/dL (1.9-2.7); Potassium 4.4 mmol/L (3.5-5.0); Total Bilirubin 0.6 mg/dL (0.2-1.0); Total Protein 5.7 g/dL (6.4-8.9)
[2018-11-05 02:37] LABS: ABS Lymphocytes 0.9 10^3/ul (1.0-4.8); ABS Monocytes 0.5 10^3/ul (0-0.8); ABS Neutrophils 3.1 10^3/ul (1.5-7.7); Eosinophil % 1.1 %; Lymphocyte % 19.4 %; Nucleated Red Blood Cells % 0.1
[2018-11-05] MEDS ORDERED: Iodixanol* (CONTRAST) 320 MG/ML 100 ML SDV IV ONE (03:37)
[2018-11-05] MEDS ORDERED: Enoxaparin(*) 100 MG/ML SYR SUBCUT ONE (05:20)
[2018-11-05] MEDS ORDERED: Docusate CAP* 100 MG PO PRN (05:55)
[2018-11-05] MEDS ORDERED: Albuterol HFA INHALER* 8 gm MDI INH PRN (05:55)
--- NOTE | 2018-11-05 06:34 | HP ---
History of Present Illness - History of Present Illness Reason for Visit: Dyspnea History of Present Illness: PCP: Dr. Watt; Oncologist: Dr. Whitmore; Dynamics Ax Solution Architect: Dr. Cain Patient is a 68 year old man with active myeloma, who was discharged from this hospital 5 days ago with diagnosis of pneumonia. He has some chronic dyspnea, but this was tolerable for the last few days. However he suddenly felt more dyspneic at rest today, and came back to the ER. He has a cough, denies chest pain. He feels like the pneumonia is not resolved, and he wants a stronger antibiotic. Patient is actively under treatment by Dr. Whitmore and Dr. Wilson for myeloma. He is due for his next round of chemotherapy today. He has a history of pulmonary embolism in Jun 2016. He was on warfarin after that, and then transitioned to Eliquis. He has been seeing Dr. Whitney in [place] re atrial fibrillation. Last year he had ablation procedure and a Watchman device, and was subsequently told he could stop anticoagulation. - Past Medical History Cardiac: AFIB, CAD - s/p stent to LAD, CHF - systolic, EF 35-40% on echo 06/26, HTN, Hyperlipidemia, Aortic stenosis - mild, Valve insufficiency - mild MR, Other - pacemaker Pulmonary: COPD, Pulmonary embolus - 06/28, Other - sleep apnea Gastrointestinal: GERD, Peptic ulcer disease Heme/Onc: Other - active multiple myeloma Musculoskeletal: Osteoarthritis, Other - h/o left hip/pelvic pathological fracture Endocrine: Diabetes - type 2 - Past Surgical History Past Surgical History: None - colostomy w/ reversal, Arthroscopy - bilat knees - Past Family History Family History: CVA - sister - Past Social History Smoke: Quit - 30 P-Y, quit 7-8 yrs ago Occupation: retired Alcohol: None Drugs: None Lives: Other - partner Sergey is HCP, no children Domestic Violence: Negative Review of Systems - Measurements Intake and Output: Intake and Output Last 24 Hours 11/02/18 11/03/18 11/04/18 11/05/18 06:59 06:59 06:59 06:59 Weight 117.934 kg - Review of Systems Constitutional Symptoms: Positive: Weakness Dermatology: Positive: Normal HEENT: Positive: Normal Eyes: Positive: Normal Thyroid: Positive: Normal Pulmonary: Positive: Cough, Shortness of Breath, COPD, Home Oxygen - 2 liters/ min Negative: Sputum, Wheezing Cardiology: Positive: Shortness of Breath, Edema Negative: Chest Pain, Swelling of Ankles Gastroenterology: Positive: Normal Negative: Abdominal Pain, Nausea, Vomiting, Constipation Genital - Urinary: Positive: Normal Musculoskeletal: Positive: Joint Pain, Arthritis, Low Back Pain Endocrinology: Positive: Normal, Diabetes Mellitus Hematologic/Lymphatic: Positive: Anemia Neurology: Positive: Normal Negative: Headache Psychiatry: Positive: Unusual Anxiety Allergic/Immunologic: Positive: Immunocompromise Objective Active Medications: Albuterol (A Lbuterol Hfa (Prepak)) inh [facility] Q4HR PRN PRN Reason: SHORTNESS OF BREATH Amoxicillin/Clavulanate Potassium (Augmentin Tab*) 875 mg PO BID [facility] Apixaban (Eliquis*) 10 mg PO BID [facility] Aspirin (Aspirin Ec Tab*) 81 mg PO DAILY [facility] Atorvastatin Calcium (Lipitor*) 10 mg PO BEDTIME [facility] Calcium Carbonate (Calcium Carbonate Tab*) 1,250 mg PO QAM [facility] Clopidogrel Bisulfate (Plavix Tab*) 75 mg PO DAILY [facility] Cyanocobalamin (Vitamin B12 Tab*) 1,000 mcg PO QAM [facility] Docusate Sodium (Colace Cap*) 200 mg PO BID PRN PRN Reason: CONSTIPATION Duloxetine HCl (Cymbalta Cap*) 60 mg PO QAM [facility] Furosemide (Lasix Tab*) 40 mg PO QAM [facility] Gabapentin (Neurontin Cap(*)) 300 mg PO BEDTIME [facility] Glipizide (Glucotrol Xl*) 5 mg PO QAM [facility] Guaifenesin (Mucinex*) 600 mg PO BID [facility] Insulin Glargine (Lantus(*)) 30 units SUBCUT BEDTIME [facility] Metoprolol Succinate (Toprol Xl Tab*) 25 mg PO QAM [facility] Morphine Sulfate (Ms Contin(*)) 30 mg PO BID [facility] Non-Formulary Medication (Cholecalciferol (Vitamin D3) [Vitamin D3]) 2,000 unit PO QAM [facility] Non-Formulary Medication (Iron Polysaccharide Complex [Ferrex 150]) 150 mg PO BID [facility] Oxycodone HCl (Roxycodone Tab*) 20 mg PO Q4H PRN PRN Reason: PAIN Pantoprazole Sodium (Protonix Tab*) 40 mg PO QAM [facility] Potassium Chloride (Klor Con Er Tab*) 20 meq PO QAM [facility] Ramipril (Altace Cap*) 2.5 mg PO DAILY [facility] Fluticasone/Salmeterol (Advair Hfa 115/21 (Nf)) 2 puff INH BID [facility]; Protocol Tamsulosin HCl (Flomax Cap*) 0.4 mg PO QAM [facility] Vital Signs - 8 hr 11/04/18 11/04/18 11/04/18 22:52 22:56 22:59 Temperature 37.0 C Pulse Rate 89 87 76 Respiratory 27 27 23 Rate Blood Pressure 158/101 145/75 (mmHg) O2 Sat by Pulse 97 97 99 Oximetry 11/05/18 11/05/18 11/05/18 03:00 03:29 04:06 Temperature Pulse Rate 71 70 Respiratory 27 23 23 Rate Blood Pressure 140/69 (mmHg) O2 Sat by Pulse 97 97 Oximetry 11/05/18 11/05/18 11/05/18 04:29 04:59 05:01 Temperature Pulse Rate 70 70 70 Respiratory 27 14 16 Rate Blood Pressure 149/96 118/79 (mmHg) O2 Sat by Pulse 97 100 100 Oximetry Oxygen Devices in Use Now: Nasal Cannula Appearance: alert, tearful, mild respiratory distress Eyes: No Scleral Icterus Ears/Nose/Mouth/Throat: NL Teeth, Lips, Gums, Clear Oropharnyx Neck: NL Appearance and Movements; NL JVP, Trachea Midline, No Thyroid Enlargement, Masses Respiratory: Symmetrical Chest Expansion and Respiratory Effort, - - ronchi present bibasilar Cardiovascular: RRR, No Edema, - - 2/6 systolic murmur Lymphatic: No Cervical Adenopathy Extremities: No Edema Skin: No Rash or Ulcers Neurological: Alert and Oriented x 3 Lines/Tubes/Other Access: Clean, Dry and Intact Peripheral IV Nutrition: Taking PO's Result Diagrams: 11/05/18 00:11 11/05/18 00:11 Additional Lab and Data: Laboratory Tests 11/05/18 11/05/18 11/05/18 00:11 00:11 00:11 INR (Anticoag Therapy) 1.29 H Glucose 62 L Lactic Acid 1.0 Calcium 9.0 Magnesium 1.8 L Alkaline Phosphatase 93 Troponin I 0.00 B-Natriuretic Peptide Total Protein 5.7 L 11/05/18 00:11 INR (Anticoag Therapy) Glucose Lactic Acid Calcium Magnesium Alkaline Phosphatase Troponin I B-Natriuretic Peptide 525 H Total Protein Diagnostic Imaging: CTA chest: pulmonary embolism present, small bilateral pleural effusions and infiltrates EKG Data: atrial fibrillation, V-paced 100% Assess/Plan/Problems-Billing Assessment: 68 year old man with myeloma presenting with second pulmonary embolism - Patient Problems (1) Pulmonary embolism Current Visit: No Status: Acute Priority: High Code(s): I26.99 - OTHER PULMONARY EMBOLISM WITHOUT ACUTE COR PULMONALE SNOMED Code(s): 54562909 Comment: Patient will be admitted for observation, monitored on telemetry Not cardiovasularly unstable, could be treated with Lovenox or Eliquis. Will discuss with hematology service, who can take on case Clearly needs long-term anticoagulation, discussed with patient (2) A-fib Current Visit: No Status: Acute Priority: Medium Code(s): I48.91 - UNSPECIFIED ATRIAL FIBRILLATION SNOMED Code(s): 29303662 Comment: -With presence of Watchman device, does not need anticoagulation for A-fib -Continue rate control with metoprolol. (3) Type 2 diabetes mellitus Current Visit: No Status: Acute Priority: Medium Comment: - Will hold metformin due to CT scan contrast - Continue low dose Lantus and add Lispro SS. - monitor finger stick glucose (4) DVT prophylaxis Current Visit: No Status: Acute Priority: Low Code(s): [id number] - SNOMED Code(s): 865781172 Comment: - on lovenox Status and Disposition: observation
[2018-11-05] MEDS ORDERED: Morphine 4 MG/ML VIAL (1 ml) 4 MG/ML VIAL IV ONE (06:54)
[2018-11-05] MEDS: Mometasone/Formoter 200/5 MDI INH SCH ×2 (07:15→20:41)
[2018-11-05] MEDS: Aspirin EC TAB* 81 MG TAB.EC PO SCH (08:08)
[2018-11-05] MEDS: Furosemide TAB* 20 MG PO SCH (08:09)
[2018-11-05] MEDS: Cholecalciferol TAB* 1000 UNITS PO SCH (08:09)
[2018-11-05] MEDS: Ramipril CAP* 2.5 MG PO SCH (08:09)
[2018-11-05] MEDS: Morphine TAB Extended Release (*) 30 MG TAB.ER PO SCH ×2 (08:09→21:51)
[2018-11-05] MEDS: Calcium Carbonate TAB* 1250 MG (CALCIUM 500 MG) PO SCH (08:09)
[2018-11-05] MEDS: glipiZIDE TAB.XL* 5 MG PO SCH (08:09)
[2018-11-05] MEDS: Potassium Chlor TAB* 20 MEQ TAB.ER PO SCH (08:10)
[2018-11-05] MEDS: Metoprolol Succinate XL TAB* 25 MG PO SCH (08:10)
[2018-11-05] MEDS: Clopidogrel TAB* 75 MG PO SCH (08:10)
[2018-11-05] MEDS: oxyCODONE TAB* 5 MG TAB PO PRN ×2 (08:10→23:49)
[2018-11-05] MEDS: guaiFENesin ER TAB 600 MG PO SCH ×2 (08:10→21:52)
[2018-11-05] MEDS: Cyanocobalamin TAB* 500 MCG PO SCH (08:10)
[2018-11-05] MEDS: Pantoprazole TAB * 40 MG TAB PO SCH (08:10)
[2018-11-05] MEDS: Tamsulosin CAP* 0.4 MG PO SCH (08:10)
[2018-11-05] MEDS: DULoxetine DR CAP* 60 MG CAP.DR PO SCH (08:51)
[2018-11-05] MEDS ORDERED: Dextrose 50% Syringe 50 ML* 25 GM/50 ML SYRINGE IV PUSH PRN (08:58)
[2018-11-05] MEDS ORDERED: Amoxicillin/Clavulanate TAB* 875 MG PO SCH (09:00)
[2018-11-05] MEDS ORDERED: Apixaban* 5 MG TAB PO SCH (09:00)
--- NOTE | 2018-11-05 09:12 | PN ---
Progress Note - Progress Note Date of Service: 11/05/18 Note: Addendum: Patient has signs of infiltrate persisting on CT chest. Will treat with levaquin as second line agent, has failed to respond to Augmentin as outpatient post discharge 5 days ago.
[2018-11-05] MEDS: NON FORMULARY MED* (Iron Polysaccharide Complex [Ferrex 150] 150 MG) PO SCH ×2 (09:24→21:54)
--- NOTE | 2018-11-05 09:54 | PN ---
Progress Note - Progress Note Date of Service: 11/05/18 SOAP: Subjective: reports that he went home friday but never really felt better. came back to ER last night with continued SOB maybe a bit worse. CTA concerning for PE. 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 changed him to aspirin and plavix. He is not sure if his mid level project manager was aware that he had a history of PE in 2016. Objective: Vital Signs Temp Pulse Resp BP Pulse Ox 97.7 F 80 20 179/99 100 11/05/18 07:39 11/05/18 07:39 11/05/18 08:10 11/05/18 07:39 11/05/18 07:39 perr eomi poor dentition CTA bl s1 s2 nl obese nt +bs trace LE edema A+O x 3, nonfocal neurological exam Laboratory Results - last 24 hr 11/05/18 11/05/18 11/05/18 00:11 00:11 00:11 WBC 4.5 RBC 4.34 Hgb 11.5 L Hct 35 L MCV 81 MCH 27 MCHC 33 RDW 20 H Plt Count 213 MPV 8.5 Neut % (Auto) 68.0 Lymph % (Auto) 19.4 [place] % (Auto) 10.5 Eos % (Auto) 1.1 Baso % (Auto) 1.0 Absolute Neuts (auto) 3.1 Absolute Lymphs (auto) 0.9 L Absolute Monos (auto) 0.5 Absolute Eos (auto) 0.0 Absolute Basos (auto) 0.0 Absolute Nucleated RBC 0.0 Nucleated RBC % 0.1 INR (Anticoag Therapy) Sodium 141 Potassium 4.4 Chloride 105 Carbon Dioxide 31 Anion Gap 5 BUN 14 Creatinine 0.74 Est GFR ( Amer) 126.9 Est GFR (Non-Af Amer) 104.9 BUN/Creatinine Ratio 18.9 Glucose 62 L POC Glucose (mg/dL) Lactic Acid 1.0 Calcium 9.0 Magnesium 1.8 L Total Bilirubin 0.60 AST 8 L ALT 9 Alkaline Phosphatase 93 Troponin I 0.00 B-Natriuretic Peptide Total Protein 5.7 L Albumin 3.3 Globulin 2.4 Albumin/Globulin Ratio 1.4 11/05/18 11/05/18 11/05/18 00:11 00:11 03:43 WBC RBC Hgb Hct MCV MCH MCHC RDW Plt Count MPV Neut % (Auto) Lymph % (Auto) [place] % (Auto) Eos % (Auto) Baso % (Auto) Absolute Neuts (auto) Absolute Lymphs (auto) Absolute Monos (auto) Absolute Eos (auto) Absolute Basos (auto) Absolute Nucleated RBC Nucleated RBC % INR (Anticoag Therapy) 1.29 H Sodium Potassium Chloride Carbon Dioxide Anion Gap BUN Creatinine Est GFR ( Amer) Est GFR (Non-Af Amer) BUN/Creatinine Ratio Glucose POC Glucose (mg/dL) 117 H Lactic Acid Calcium Magnesium Total Bilirubin AST ALT Alkaline Phosphatase Troponin I B-Natriuretic Peptide 525 H Total Protein Albumin Globulin Albumin/Globulin Ratio Albuterol (Ventolin Hfa Inhaler*) 2 puff INH Q4H PRN PRN Reason: SHORTNESS OF BREATH Aspirin (Aspirin Ec Tab*) 81 mg PO DAILY [facility] Last Admin: 11/05/18 08:08 Dose: 81 mg Atorvastatin Calcium (Lipitor*) 10 mg PO BEDTIME [facility] Calcium Carbonate (Calcium Carbonate Tab*) [facility] Last Admin: 11/05/18 08:09 Dose: 1,250 mg Cholecalciferol (Vitamin D Tab*) 2,000 [facility] [place] Last Admin: 11/05/18 08:09 Dose: 2,000 units Clopidogrel Bisulfate (Plavix Tab*) 75 mg PO DAILY [facility] Last Admin: 11/05/18 08:10 Dose: 75 mg Cyanocobalamin (Vitamin B12 Tab*) 1,000 [facility]cg [facility] [place] Last Admin: 11/05/18 08:10 Dose: 1,000 mcg Dextrose (D50w Syringe 50 Ml*) 12.5 gm IV PUSH .FOR FS < 60 - SS PRN PRN Reason: FS < 60 Docusate Sodium (Colace Cap*) 200 mg PO BID PRN PRN Reason: CONSTIPATION Duloxetine HCl (Cymbalta Cap*) 60 mg PO [facility] Last Admin: 11/05/18 08:51 Dose: 60 mg Enoxaparin Sodium (Lovenox(*)) 120 mg SUBCUT BID@0600,1800 [facility] Furosemide (Lasix Tab*) [facility] [place] Last Admin: 11/05/18 08:09 Dose: 40 mg Gabapentin (Neurontin Cap(*)) 300 mg PO BEDTIME [facility] Glipizide (Glucotrol Xl*) 5 mg PO QAM [facility] Last Admin: 11/05/18 08:09 Dose: 5 mg Guaifenesin (Mucinex*) 600 mg PO BID [facility] Last Admin: 11/05/18 08:10 Dose: 600 mg Levofloxacin/Dextrose (Levaquin 500 Mg Ivpremix(*)) 500 mg in 100 mls @ 100 mls /hr IVPB Q24H [facility]; Protocol Insulin Glargine (Lantus(*)) 30 units SUBCUT BEDTIME [facility] Insulin Human Lispro (Humalog*) 0 units SUBCUT ACHS [facility]; Protocol Metoprolol Succinate (Toprol Xl Tab*) 25 mg PO QAM [facility] Last Admin: 11/05/18 08:10 Dose: 25 mg Mometasone Furoate/Formoterol Fumar (Dulera 200/5 Mdi*) 2 puff INH BID [facility]; Protocol Last Admin: 11/05/18 07:15 Dose: Not Given Morphine Sulfate (Ms Contin(*)) 30 mg PO BID [facility] Last Admin: 11/05/18 08:09 Dose: 30 mg Non-Formulary Medication (Iron Polysaccharide Complex [Ferrex 150]) 150 mg PO BID [facility] Last Admin: 11/05/18 09:24 Dose: Not Given Oxycodone HCl (Roxycodone Tab*) 20 mg PO Q4H PRN PRN Reason: PAIN Last Admin: 11/05/18 08:10 Dose: 20 mg Pantoprazole Sodium (Protonix Tab*) [facility] [place] Last Admin: 11/05/18 08:10 Dose: 40 mg Potassium Chloride (Klor Con Er Tab*) 20 meq PO QAM [facility] Last Admin: 11/05/18 08:10 Dose: 20 meq Ramipril (Altace Cap*) 2.5 mg PO DAILY [facility] Last Admin: 11/05/18 08:09 Dose: 2.5 mg Tamsulosin HCl (Flomax Cap*) 0.4 mg PO QAM [facility] Last Admin: 11/05/18 08:10 Dose: 0.4 mg Assessment: 68 yo M w multiple myeloma and COPD a/w community acquired PNA representing with continued SOB slightly worsened and likely with a recurrent PE. Plan: PNA: agree with levaquin, though has almost completed a course. radiographic improvement can be delayed and I suspect exacerbation now more driven by PE cont dulera DM: cont oral meds cont lantus and humalog sliding scale MM: hold treatment given PNA agree with QUIGs and IVIG as outpatient if needed watch platelets on plavix and ASA and lovenox. may need to discuss with cardiology holding plavix full code
[2018-11-05] MEDS: Levofloxacin 500 MG IVPREMIX(* 500 MG/100 ML BAG IVPB SCH (10:38)
[2018-11-05] MEDS: Insulin LISPRO* 1 UNITS UNIT SUBCUT SCH ×3 (12:15→21:53)
[2018-11-05] MEDS: Enoxaparin(*) 150 MG/ML 1 ML SYRINGE SUBCUT SCH (16:59)
[2018-11-05] MEDS ORDERED: Insulin GLARGINE(*) 1 UNITS UNIT SUBCUT SCH (21:00)
[2018-11-05] MEDS ORDERED: Atorvastatin* 10 MG TAB PO SCH (21:00)
[2018-11-05] MEDS ORDERED: Gabapentin CAP(*) 300 MG PO SCH (21:00)
[2018-11-05] MEDS: guaiFENesin/CODIEN 100MG-10MG* 5 ML UDC PO PRN (23:50)
[2018-11-06] MEDS: Enoxaparin(*) 150 MG/ML 1 ML SYRINGE SUBCUT SCH (05:39)
[2018-11-06] MEDS: guaiFENesin/CODIEN 100MG-10MG* 5 ML UDC PO PRN (05:40)
[2018-11-06] MEDS: Insulin LISPRO* 1 UNITS UNIT SUBCUT SCH ×2 (08:25→12:56)
[2018-11-06 08:34] VITALS: BP 153/84
[2018-11-06] MEDS: Cyanocobalamin TAB* 500 MCG PO SCH (08:45)
[2018-11-06] MEDS: Clopidogrel TAB* 75 MG PO SCH (08:45)
[2018-11-06] MEDS: Pantoprazole TAB * 40 MG TAB PO SCH (08:45)
[2018-11-06] MEDS: glipiZIDE TAB.XL* 5 MG PO SCH (08:45)
[2018-11-06] MEDS: Calcium Carbonate TAB* 1250 MG (CALCIUM 500 MG) PO SCH (08:45)
[2018-11-06] MEDS: Aspirin EC TAB* 81 MG TAB.EC PO SCH (08:45)
[2018-11-06] MEDS: Furosemide TAB* 20 MG PO SCH (08:45)
[2018-11-06] MEDS: guaiFENesin ER TAB 600 MG PO SCH (08:45)
[2018-11-06] MEDS: Tamsulosin CAP* 0.4 MG PO SCH (08:45)
[2018-11-06] MEDS: Metoprolol Succinate XL TAB* 25 MG PO SCH (08:46)
[2018-11-06] MEDS: Morphine TAB Extended Release (*) 30 MG TAB.ER PO SCH (08:46)
[2018-11-06] MEDS: DULoxetine DR CAP* 60 MG CAP.DR PO SCH (08:46)
[2018-11-06] MEDS: Potassium Chlor TAB* 20 MEQ TAB.ER PO SCH (08:46)
[2018-11-06] MEDS: Levofloxacin 500 MG IVPREMIX(* 500 MG/100 ML BAG IVPB SCH (08:46)
[2018-11-06] MEDS: Cholecalciferol TAB* 1000 UNITS PO SCH (08:46)
[2018-11-06] MEDS: Ramipril CAP* 2.5 MG PO SCH (08:46)
[2018-11-06] MEDS: NON FORMULARY MED* (Iron Polysaccharide Complex [Ferrex 150] 150 MG) PO SCH (08:55)
[2018-11-06] MEDS: Mometasone/Formoter 200/5 MDI INH SCH (09:00)
--- NOTE | 2018-11-06 22:12 | DS ---
CC: Dr. Marcin Watt; Dr. Whitmore * DISCHARGE SUMMARY: DATE OF ADMISSION: 11/05/18 DATE OF DISCHARGE: 11/06/18 PRIMARY CARE PROVIDER: Dr. Marcin Watt. PRIMARY ONCOLOGIST: Dr. Adams Whitmore. ATTENDING PHYSICIAN: Dr. Bhavani Doe.* (DICTATED BY MARQUITA ARZATE) DISCHARGING PROVIDER: MARQUITA Arzate. PRIMARY DISCHARGE DIAGNOSES: 1. Pulmonary emboli. 2. Recent pneumonia. 3. Multiple myeloma. DISCHARGE MEDICATIONS: 1. Albuterol 2 puffs inhaled q.4 hours as needed for shortness of breath. 2. Aspirin 81 mg p.o. daily. 3. Atorvastatin 10 mg p.o. at bedtime. 4. Vitamin D3 3000 units p.o. daily. 5. Plavix 75 mg p.o. daily. 6. Vitamin B12 1000 mcg p.o. daily. 7. Docusate 200 mg p.o. twice daily as needed. 8. Cymbalta 60 mg p.o. daily. 9. Advair 2 puffs inhaled twice daily. 10. Lasix 40 mg p.o. daily. 11. Gabapentin 300 mg p.o. at bedtime. 12. Glipizide 5 mg p.o. daily. 13. Lantus 30 units subcu at bedtime. 14. Iron polysaccharide complex 150 mg p.o. twice daily. 15. Magnesium oxide 500 mg p.o. twice daily. 16. Metformin 1000 mg p.o. twice daily. 17. Metoprolol succinate 25 mg p.o. daily. 18. Morphine extended release 30 mg p.o. twice daily. 19. Oxycodone 20 mg p.o. q.4 hours as needed. 20. Pantoprazole 40 mg p.o. daily. 21. Potassium chloride 20 mEq p.o. daily. 22. Ramipril 2.5 mg p.o. daily. 23. Flomax 0.4 mg p.o. daily. 24. Eliquis 10 mg p.o. twice daily for 7 days followed by 5 mg twice daily. 25. Mucinex 600 mg p.o. twice daily. 26. Mucinex with Codeine 10 mL p.o. q.6 hours as needed for cough. 27. Metformin 1000 mg p.o. twice daily. HOSPITAL IMAGING: Chest x-ray, 11/04/18, showed small bilateral pleural effusion and small left basilar infiltrate. CTA of the chest shows diffusely decreased contrast filling to the lower segmental branches of the left pulmonary artery, which may represent pulmonary emboli, small bilateral pleural effusion with adjacent atelectasis versus consolidation, mild pericardial effusion. HOSPITAL COURSE: This is a 68-year-old gentleman with multiple myeloma, recently hospitalized with pneumonia, who returned to the emergency department with complaints of increasing shortness of breath. Initial vitals showed him to be afebrile and not hypoxic. He underwent chest x-ray which showed resolving left basilar infiltrates, and the CTA of the chest which demonstrated what was likely a new pulmonary embolus. The patient was subsequently admitted and started on Lovenox for anticoagulation. The patient had previously been anticoagulated with Coumadin and then Eliquis with a history of prior PE and AFib. 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 The patient's dyspnea improved with anticoagulation and he was not hypoxic throughout his hospital stay. The patient had completed 10 days of antibiotics at the time of discharge and remained afebrile. His increased dyspnea was secondary to PE rather than worsening pneumonia. DISPOSITION AND FOLLOWUP PLAN: The patient is being discharged to home where he lives with his partner in stable condition. He has completed antibiotics and will resume Eliquis 10 mg twice daily for a week followed by 5 mg p.o. twice daily indefinitely. The patient will be seeing an oncologist for followup early next week. MARQUITA ARZATE [id number]/[facility] #: [id number] MTDJustin
== END 2018-11-06 15:10 | disposition home or self-care (01) ==
LOC: ED 22:51 → MEDTELE 11-05 05:51
PROVIDERS: ADMIT Internal Medicine; ATTEND Internal Medicine Hematology & Oncology
DX: I26.99 Other pulmonary embolism without acute cor pulmonale (principal); J18.9 Pneumonia, unspecified organism; C90.00 Multiple myeloma not having achieved remission; I48.91 Unspecified atrial fibrillation; I11.0 Hypertensive heart disease with heart failure; I50.20 Unspecified systolic (congestive) heart failure; E78.5 Hyperlipidemia, unspecified; I35.0 Nonrheumatic aortic (valve) stenosis; Z95.0 Presence of cardiac pacemaker; J44.9 Chronic obstructive pulmonary disease, unspecified; K21.9 Gastro-esophageal reflux disease without esophagitis; E11.9 Type 2 diabetes mellitus without complications; Z79.82 Long term (current) use of aspirin; Z79.899 Other long term (current) drug therapy; Z79.01 Long term (current) use of anticoagulants; Z79.84 Long term (current) use of oral hypoglycemic drugs; Z88.8 Allergy status to other drugs, medicaments and biological substances; Z87.891 Personal history of nicotine dependence
CPT/HCPCS: 36415; 71046; 71275; 80053; 83605; 83735; 83880; 84484; 85025; 85610; 93005; 94640; 96365; 96366; 96372; 99219; 99284; A9270-GY; G0378; J1650; J1956; Q9967

== ENCOUNTER 2018-12-18 18:55 | Emergency (ER) | payer MEDICARE, OTHER ==
--- NOTE | 2018-12-18 19:33 | ED ---
Shortness of Breath - HPI Summary HPI Summary: This pt is a 68 y/o male presenting to [facility] c/o SOB since last night. Pt reports his SOB comes on with exertion. He describes SOB as more of a "panic attack." Pt uses 2L of O2 at home for COPD. Denies cough, fever, chest pain/ tightness/pressure. Pt notes he has "normal" LE swelling. He notes his abdomen is hard. Pt states he took 2 Colace and milk of magnesia yesterday, which he does every day to keep his bowel movements regular. Pt has sick contacts at home , his partner with cold symptoms that began 5 days ago. Pt sleeps with 5 pillows but notes he has been doing this before he "got sick." He has hx of multiple myeloma which is followed up by his oncologist is Dr. Whitmore. Pt goes every week to get a shot on his abdomen and has chemo once a month. His PCP is Dr. Watt. PSHx stent, pacemaker, ablation. PMHx includes blood clots. - History of Current Complaint Time Seen by Provider: 12/18/18 19:25 Hx Obtained From: Patient Onset/Duration: Lasting Hours, Still Present Timing: Constant Dyspnea At: Exertion Aggravating Factors: Nothing Alleviating Factors: Nothing Associated Signs & Symptoms: Edema - Allergy/Home Medications Allergies/Adverse Reactions: Allergies Allergy/AdvReac Type Severity Reaction Status Date / Time ibuprofen Allergy GI Upset Verified 08/31/18 03:29 pregabalin Allergy Swelling Verified 08/31/18 03:29 Home Medications: Home Medications Clopidogrel TAB* [Plavix TAB*] 75 mg PO DAILY 12/18/18 [History Confirmed ] Fluticasone Propion/Salmeterol [Wixela 250-50 Inhub] 1 puff INH BID 12/18/18 [ History Confirmed 12/18/18] Vitamin E CAP* 400 unit PO DAILY 12/18/18 [History Confirmed 12/18/18] PMH/Surg Hx/FS Hx/Imm Hx Endocrine/Hematology History: Reports: Hx Anticoagulant Therapy, Hx Bone Marrow Disease - MULTIPLE MYELOMA, Hx Diabetes, Hx Anemia - HX OF WITH TRANSFUSIONS IN 06/2013, Other Endocrine/Hematological Disorders - multiple myeloma Denies: Hx Thyroid Disease Cardiovascular History: Reports: Hx Cardiomegaly, Hx Congestive Heart Failure, Hx Coronary Artery Disease, Hx Hypercholesterolemia, Hx Hypertension - on meds, Hx Pacemaker/ICD - 2014, Hx Syncope, Hx Valvular Heart Disease, Other Cardiovascular Problems/Disorders - AV flaco ablation 03/2018, Watchman 06/2018 Denies: Hx Peripheral Vascular Disease Respiratory History: Reports: Hx Asthma - HAS PRN INHALERS, Hx Chronic Obstructive Pulmonary Disease (COPD) - 0-2 liters O2 at home, Hx Pulmonary Edema , Hx Pulmonary Embolism - 2016, 2018, Hx Sleep Apnea - NO CPAP, Other Respiratory Problems/Disorders - History of pneumonia 2014-Respiratory Failure- intubated GI History: Reports: Hx Gastroesophageal Reflux Disease, Hx Hiatal Hernia - Surgery 2017, Hx Ulcer, Other GI Disorders - GI BLEED 2013, HX of Gastric Polyp History: Reports: Hx Kidney Infection - Denies: Hx Dialysis, Hx Renal Disease, Other Problems/Disorders Musculoskeletal History: Reports: Hx Arthritis, Hx Back Problems, Hx Bursitis - Shoulder, Hx Orthopedic Injury - pelvic fracture 01/2014, Other Musculoskeletal History - Multiple pelvis fractures, Left total hip replacement 2014,UMBILICAL HERNIA Sensory History: Reports: Hx Cataracts - repaired, Hx Glaucoma Denies: Hx Contacts or Glasses, Hx Deafness, Hx Hearing Aid Opthamlomology History: Reports: Hx Cataracts - repaired, Hx Glaucoma Denies: Hx Contacts or Glasses Neurological History: Reports: Hx Nerve Disease - Bilateral Neuropathy knees down to feet, Other Neuro Impairments/Disorders - Syncope 2013 Denies: Hx Headaches, Hx Seizures, Hx Transient Ischemic Attacks (TIA) Psychiatric History: Reports: Hx Anxiety - Panic attacks, Hx Depression Denies: Hx Panic Disorder - Cancer History Cancer Type, Location and Year: multiple myeloma Hx Chemotherapy: Yes - 08/24/18 Hx Radiation Therapy: No Hx Palliative Cancer Treatment: No - Surgical History Surgical History: Yes Surgery Procedure, Year, and Place: PACEMAKER 2014,. LEFT HIP REPLACEMENT 2014. BILATERAL CATARACTS 2015. CARDIAC ABLATION 03/26/18-[place]. UMBILICAL HERNIA REPAIR-[facility] Hx Anesthesia Reactions: No - Immunization History Date of Tetanus Vaccine: PT STATES UNSURE Date of Influenza Vaccine: PT STATES UNSURE Infectious Disease History: Yes Infectious Disease History: Reports: Hx of Known/Suspected MRSA - NOSE Denies: Hx Clostridium Difficile, Hx Hepatitis, Hx Human Immunodeficiency Virus (HIV), Hx Shingles, Hx Tuberculosis, History Other Infectious Disease, Traveled Outside the [place] in Last 30 Days - Family History Known Family History: Positive: Other - mother had circulation problems, father had angina. - Social History Alcohol Use: None Hx Substance Use: No Substance Use Type: Reports: None Hx Tobacco Use: Yes Smoking Status (MU): Former Smoker Type: Cigarettes Amount Used/How Often: 1/2 PPD OFF AND ON Length of Time of Smoking/Using Tobacco: 20 years Have You Smoked in the Last Year: No Review of Systems Negative: Fever, Chills Negative: Erythema Negative: Sore Throat Negative: Chest Pain Positive: Shortness Of Breath. Negative: Cough Negative: Abdominal Pain, Vomiting, Nausea Negative: dysuria, hematuria Positive: Edema - in LE. Negative: Myalgia Negative: Rash Neurological: Other - NEGATIVE: dizziness All Other Systems Reviewed And Are Negative: Yes Physical Exam - Summary Physical Exam Summary: Constitutional: Well-developed, Well-nourished, Alert. (-) Distressed Skin: Warm, Dry HENT: Normocephalic; Atraumatic Eyes: Conjunctiva normal Neck: Musculoskeletal ROM normal neck. (-) JVD, (-) Stridor, (-) Tracheal deviation Cardio: Rhythm regular, rate normal, Heart sounds normal; Intact distal pulses; The pedal pulses are 2+ and symmetric. Radial pulses are 2+ and symmetric. (-) Murmur Pulmonary/Chest wall: Effort normal. (-) Respiratory distress, (-) Wheezes, (-) Rales Abd: Soft, (-) tenderness, (-) Distension, (-) Guarding, (-) Rebound Musculoskeletal: 1+ edema in bilateral lower extremities. Lymph: (-) Cervical adenopathy Neuro: Alert, Oriented x3 Psych: Mood and affect Normal Triage Information Reviewed: Yes Vital Signs On Initial Exam: Initial Vitals Temp Pulse Resp BP Pulse Ox 97.0 F 71 22 142/82 100 12/18/18 19:00 12/18/18 19:00 12/18/18 19:00 12/18/18 19:00 12/18/18 19:00 Vital Signs Reviewed: Yes Diagnostics - Vital Signs Vital Signs Temp Pulse Resp BP Pulse Ox 12/18/18 19:00 97.0 F 71 22 142/82 100 - Laboratory Result Diagrams: 12/18/18 19:52 12/18/18 19:52 Lab Statement: Any lab studies that have been ordered have been reviewed, and results considered in the medical decision making process. - Radiology Chest XR Radiology Interpretation Completed By: ED Physician Summary of Radiographic Findings: no acute process. - CT CTA Chest CT Interpretation Completed By: Radiologist Summary of CT Findings: IMPRESSION: 1. No acute pulmonary embolic disease. 2. No pulmonary consolidation. No pleural effusion. 3. Partially calcified thrombus in the left atrial appendage. 4. Multiple bilateral old rib fractures. 5. Spondylotic changes of the thoracic spine with a confluent anterior bridging. osteophyte consistent with benign idiopathic skeletal hyperostosis. 6. Multiple focal hypodensities scattered throughout the vertebral bodies. These were noted on the prior CT scan of 11/05/2018 and 2016. Cannot exclude a neoplastic process. Dr. Mari has reviewed this report. Course/Dx - Course Assessment/Plan: Pt is a 68 y/o male, with hx of multiple myeloma, COPD, presenting to [facility] c/o SOB since last night. Pt reports his SOB comes on with exertion. He describes SOB as more of a "panic attack." Pt uses 2L of O2 at home. Denies cough, fever, chest pain/tightness/pressure. Pt notes he has "normal" LE swelling. He notes his abdomen is hard. Pt states he took 2 Colace and milk of magnesia yesterday, which he does every day to keep his bowel movements regular. Pt has sick contacts at home, his partner with cold symptoms that began 5 days ago. Blood work remarkable for hemoglobin of 11.7, hematocrit of 36, platelet count of 68, INR of 74, glucose of 61, BNP of 193. Chest CTA shows 1. No acute pulmonary embolic disease. 2. No pulmonary consolidation. No pleural effusion. 3. Partially calcified thrombus in the left atrial appendage. 4. Multiple bilateral old rib fractures. 5. Spondylotic changes of the thoracic spine with a confluent anterior bridging osteophyte consistent with benign idiopathic skeletal hyperostosis. 6. Multiple focal hypodensities scattered throughout the vertebral bodies. These were noted on the prior CT scan of 11/05/2018 and 03/11/2017. Cannot exclude a neoplastic process. In the ED course the pt was given Dextrose, duoneb treatment. Pt will be signed out to Dr. Hensley pending repeat glucose checks. - Diagnoses Provider Diagnoses: Hypoglycemia Discharge - Sign-Out/Discharge Documenting (check all that apply): Sign-Out Patient Signing out patient TO: Pa Hensley - repeat glucose checks Patient Received Moderate/Deep Sedation with Procedure: No - Discharge Plan Condition: Stable Disposition: HOME Patient Education Materials: Diabetes and Nutrition (ED) Referrals: [facility] [Outside] Marcin Watt MD [Primary Care Provider] - Additional Instructions: Eat low glycemia index food. Be sure you are eating when taking your insulin. You need to HOLD your lantus and Glipizide until you see your primary care provider. Follow up with your primary care provider or [facility] in 2-3 days. RETURN TO THE EMERGENCY DEPARTMENT FOR CHANGING OR WORSENING SYMPTOMS. - Attestation Statements Document Initiated by Scribe: Yes Documenting Scribe: Maddy Tirado Provider For Whom Scribe is Documenting (Include Credential): Compa Mari MD Scribe Attestation: Maddy Contreras, scribed for Compa Mari MD on 12/18/18 at 1161. Status of Scribe Document: Ready
[2018-12-18 20:10] LABS: Hematocrit 36 % (42-52); Hemoglobin 11.7 g/dL (14.0-18.0); Mean Corpuscular HGB Conc 33 g/dL (31-36); Mean Corpuscular Hemoglobin 27 pg (27-31); Mean Corpuscular Volume 83 fL (80-94); Red Blood Count 4.35 10^6 /uL (4.18-5.48); Red Cell Distribution Width 18 % (10-15); White Blood Count 6.1 10^3/uL (3.5-10.8)
[2018-12-18 20:17] LABS: Activated Partial Thrombo Time 37.2 seconds (26.0-38.0); INR 1.74 (0.82-1.09)
[2018-12-18 20:23] LABS: Troponin I 0.02 ng/mL (<0.04)
[2018-12-18 20:24] LABS: Albumin 3.8 g/dL (3.2-5.2); Albumin/Globulin Ratio 1.9 (1-3); Calcium 8.8 mg/dL (8.6-10.3); EGFR African American 89.6 (>60); EGFR Non-African American 74.1 (>60); Total Bilirubin 0.8 mg/dL (0.2-1.0); Total Protein 5.8 g/dL (6.4-8.9)
[2018-12-18 20:35] LABS: ABS Lymphocytes 0.7 10^3/ul (1.0-4.8); ABS Monocytes 0.7 10^3/ul (0-0.8); ABS Neutrophils 4.7 10^3/ul (1.5-7.7); Eosinophil % 0.1 %; Mean Platelet Volume 9.2 fL (7.4-10.4); Nucleated Red Blood Cells % 0.1; Platelet Count 68 10^3/uL (150-450)
[2018-12-18] MEDS ORDERED: Dextrose 50% Syringe 50 ML* 25 GM/50 ML SYRINGE IV PUSH ONE (20:43)
[2018-12-18] MEDS ORDERED: Iodixanol* (CONTRAST) 320 MG/ML 100 ML SDV IV ONE (20:56)
[2018-12-18] MEDS ORDERED: Dextrose 50% VIAL 50 ml IV PUSH ONE (22:00)
[2018-12-18] MEDS ORDERED: Albuterol/Ipratropium NEB.SOL* Albuterol 2.5 MG/Ipratropium 0.5 MG 3 ML INH ONE (22:01)
--- NOTE | 2018-12-18 23:36 | ED ---
Progress - Progress Note Progress Note: Receiving sign-out from Dr. Mari pending blood glucose measurement at shift change 2200. Patient did not eat today which is the reason for his hypoglycemia. The patient was administered D50 ordered by Dr. Mari and his sugar has returned to normal and he is feeling better. A plan for discharge was discussed with the patient and he was agreeable with this plan. Course/Dx - Course Course Of Treatment: Receiving sign-out from Dr. Mari pending blood glucose measurement at shift change 2200. Patient did not eat today which is the reason for his hypoglycemia. The patient was administered D50 ordered by Dr. Mari and his sugar has returned to normal and he is feeling better. A plan for discharge was discussed with the patient and he was agreeable with this plan. - Diagnoses Provider Diagnoses: Hypoglycemia, SOB (shortness of breath) Discharge - Sign-Out/Discharge Documenting (check all that apply): Patient Departure - Discharge Patient Received Moderate/Deep Sedation with Procedure: No - Discharge Plan Condition: Stable Disposition: HOME Patient Education Materials: Diabetes and Nutrition (ED) Referrals: [facility] [Outside] Marcin Watt MD [Primary Care Provider] - Additional Instructions: Eat low glycemia index food. Be sure you are eating when taking your insulin. You need to HOLD your lantus and Glipizide until you see your primary care provider. Follow up with your primary care provider or [facility] in 2-3 days. RETURN TO THE EMERGENCY DEPARTMENT FOR CHANGING OR WORSENING SYMPTOMS. - Attestation Statements Document Initiated by Scribe: Yes Documenting Scribe: Marcin Bhatia Provider For Whom Ben is Documenting (Include Credential): Pa Hensley MD Scribe Attestation: Marcin Contreras, scribed for Pa Hensley MD on 12/18/18 at 2343. Status of Scribe Document: Ready
[2018-12-18 23:58] VITALS: BP 127/70
== END 2018-12-18 23:56 | disposition home or self-care (01) ==
LOC: ED 18:55
DX: R06.02 Shortness of breath (principal); E11.649 Type 2 diabetes mellitus with hypoglycemia without coma; Z79.01 Long term (current) use of anticoagulants; I50.9 Heart failure, unspecified; I25.10 Atherosclerotic heart disease of native coronary artery without angina pectoris; I10 Essential (primary) hypertension; Z95.0 Presence of cardiac pacemaker; Z95.4 Presence of other heart-valve replacement; K21.9 Gastro-esophageal reflux disease without esophagitis; C90.00 Multiple myeloma not having achieved remission; Z87.891 Personal history of nicotine dependence
CPT/HCPCS: 36415; 71045; 71275; 80053; 83605; 83880; 84484; 85025; 85610; 85730; 87040; 96374; 99284; A9270-GY; Q9967

== ENCOUNTER 2019-03-07 12:13 | Emergency (ER) | payer MEDICARE, OTHER ==
--- OUTSIDE RECORDS SUMMARY | 2019-03-07 12:46 | XMS REPORT | Continuity of Care Document ---
:1950 External Reference #:[id number] Author Name Covert, Kristen Care Team Providers Name Role Phone Marcin Watt MD - Family Medicine Care Team Information [facility] Administrator Problems Active Problems Provider Date Atrial fibrillation Joce Cain M.D. Onset: 12/02/2013 Congestive heart failure Joce Cain M.D. Onset: 12/02/2013 Coronary arteriosclerosis Joce Cain M.D. Onset: 12/02/2013 Low blood pressure Joce Cain M.D. Onset: 12/02/2013 Syncope and collapse Joce Cain M.D. Onset: 02/10/2014 Localized, secondary osteoarthritis of the Dameon Chavarria M.D. Onset: 2015 pelvic region and thigh Prosthetic arthroplasty of the hip Dameon Chavarria M.D. Onset: 10/19/2015 Disorder of bursa of shoulder region Dameon Chavarria M.D. Onset: 01/24/2016 Multiple fractures of pelvis with stable Dameon Chavarria M.D. Onset: 2016 disruption of pelvic ring, subsequent encounter for fracture with routine healing Sciatica Dameon Chavarria M.D. Onset: 02/26/2017 Social History Type Date Description Comments Sex Unknown Tobacco Use Start: Unknown Former Cigarette 4 years, a few times End: Smoker 1/2 Pack Daily Smoking Status Reviewed: 01/19/19 Former Cigarette 4 years, a few times Smoker 1/2 Pack Daily ETOH Use Denies alcohol use Tobacco Use Start: Unknown Patient is a former Quit in June 2012 End: Unknown smoker Recreational Drug Use Denies Drug Use Exercise Type/Frequency twice a week 5 minutes on bike once to twice per week. Limited by atrial fibrillation Allergies, Adverse Reactions, Alerts Active Allergies Reaction Severity Comments Date Lyrica swelling 10/12/2014 Ibuprofen ulcers 10/12/2014 Inactive Allergies NKDA 12/02/2013 Medications Active Medications SIG Qnty Indications Ordering Date Provider Atorvastatin Calcium 1 by mouth every day 90tabs Meghan Carlisle, 2018 N.P. 10mg Tablets Furosemide 1 by mouth every day Meghan Carlisle, 01/29/2019 40mg N.P. Tablets Aspirin 81 take 1 tab by mouth 90tabs Meghan Carlisel, 01/19/2019 [address]P. Tablets DR Elise 1 by mouth twice a Unknown 12/10/2018 5mg Tablets day Toprol XL 1/2 tab by mouth 45tabs Joce Perry 06/30/2018 25mg every day Maureen Cain Tablets ER 24HR Gabapentin Take One To Two 60caps M54.41 Dameon Chavarria, 02/26/2017 300mg Capsules By Mouth AT M.D. Capsules Bedtime Amoxicillin 4 tablets 1 hour 12caps Dameon Chaavrria, 03/09/2015 500mg before dental work M.D. Capsules Oxycodone HCL take one tablet Unknown 10mg every 8 hours for Tablets pain (max 6 a day) Morphine Sulfate ER 1 tab by mouth twice I42.9 Unknown daily 30mg Caps ER 24HR Albuterol Sulfate Unknown HFA 108(90Base) mcg/Act Aerosol Metformin HCL 1 by mouth twice a Unknown 1000mg day Tablets Docusate Sodium 1 tab every 12 hours Unknown 100mg as needed for Capsules constipation Duloxetine HCL 1 by mouth every day Unknown 60mg Caps DR Part Tamsulosin HCL 1 by mouth every day Unknown 0.4mg Capsules Dulera inhale two puffs by Unknown 100-5mcg/Act mouth twice a day as Aerosol needed Vitamin D3 2 tabs daily in am Unknown 1000Unit and 1 tab daily in Che[place] pm Vitamin B 12 1 by mouth every day Unknown 1000mcg Lozenges Vitamin E Complete 1 tablet po daily Am Unknown 400Units Calcium 1 by mouth every day Unknown 500mg Tablets Am Glipizide XL 1 by mouth every day 90tabs Unknown 5mg Tablets ER 24HR Pantoprazole Sodium 1 by mouth 1x day 90tabs Unknown 40mg Tablets DR History Medications Altace 1 tablet by mouth 90caps Joce Cain, 09/14/2018 - 2.5mg once daily M.DJailyn 12/10/2018 Capsules Medications Administered in Office Medication SIG Qnty Indications Ordering Provider Date Depomedrol 40MG Dameon Chavarria M.D. 01/24/2016 Injection Immunizations Description No Information Available Vital Signs Date Vital Result Comment 01/19/2019 1:16pm Height 72 inches 6'0" Weight 264.00 lb with shoes Heart Rate 60 /min BP Systolic Sitting 102 mmHg Lue BP Diastolic Sitting 64 mmHg Lue BP Systolic Standing 102 mmHg Lue BP Diastolic Standing 60 mmHg Lue BMI (Body Mass Index) 35.8 kg/m2 Ejection Fraction 55-60% Echo 01/15/19 12/10/2018 3:22pm Height 72 inches 6'0" Weight 250.00 lb with shoes Heart Rate 62 /min irregular BP Systolic Sitting 110 mmHg Lue BP Diastolic Sitting 62 mmHg Lue BP Systolic Standing 108 mmHg Lue BP Diastolic Standing 60 mmHg Lue BMI (Body Mass Index) 33.9 kg/m2 Ejection Fraction 55-60% Echo 07/01/18 Results Test Date Facility Test Result H/L Range Note Laboratory test [facility] B-Type 161 pg/mL High <= 100 finding [address] [place] [address] Peptide BNP [phone] CBC Auto Diff [facility] White Blood 5.5 10^3/uL Normal 3.5-10.[address] [place] [address] [phone] Red Blood Count 4.34 10^6/uL Normal 4.18-5.48 Hemoglobin 11.1 g/dL Low 14.0-18.0 Hematocrit 35 % Low 42-52 Mean Corpuscular Volume 81 fL Normal 80-94 Mean Corpuscular Hemoglobin 26 pg Low 27-31 Mean Corpuscular HGB Conc 32 g/dL Normal 31-36 Red Cell Distribution Width 17 % High 10-15 Platelet Count 118 10^3/uL Low 150-450 Mean Platelet Volume 9.5 fL Normal 7.4-10.4 Abs Neutrophils 4.3 10^3/uL Normal 1.5-7.7 Abs Lymphocytes 0.7 10^3/uL Low 1.0-4.8 Abs Monocytes 0.3 10^3/uL Normal 0-0.8 Abs Eosinophils 0.1 10^3/uL Normal 0-0.6 Abs Basophils 0.0 10^3/uL Normal 0-0.2 Abs Nucleated RBC 0.0 10^3/uL Granulocyte % 79.3 % Lymphocyte % 12.7 % Monocyte % 5.3 % Eosinophil % 2.3 % Basophil % 0.4 % Nucleated Red Blood Cells % 0.0 Comp Metabolic 01/27/2019 [facility] Sodium 142 mmol/L Normal 135-[address] [place] [address] [phone] Potassium 4.1 mmol/L Normal 3.5-5.0 Chloride 103 mmol/L Normal 101-111 Co2 Carbon Dioxide 33 mmol/L High 22-32 Anion Gap 6 mmol/L Normal 2-11 Glucose 163 mg/dL High 70-100 Blood Urea Nitrogen 17 mg/dL Normal 6-24 Creatinine 0.89 mg/dL Normal 0.67-1.17 BUN/Creatinine Ratio 19.1 Normal 8-20 Calcium 8.9 mg/dL Normal 8.6-10.3 Total Protein 5.4 g/dL Low 6.4-8.9 Albumin 3.7 g/dL Normal 3.2-5.2 Globulin 1.7 g/dL Low 2-4 Albumin/Globulin Ratio 2.2 Normal 1-3 Total Bilirubin 0.50 mg/dL Normal 0.2-1.0 Alkaline Phosphatase 107 U/L High 34-104 Alt 9 U/L Normal 7-52 Ast 10 U/L Low 13-39 Egfr Non- 84.8 >60 Egfr 102.6 >60 1 Laboratory test 01/07/2019 [facility] Point of 124 mg/dL High 70-100 [address] [address] [phone] Comp Metabolic 12/16/2018 [facility] Sodium 144 mmol/L Normal 135-[address] [place] [address] [phone] Potassium 3.9 mmol/L Normal 3.5-5.0 Chloride 110 mmol/L Normal 101-111 Co2 Carbon Dioxide 29 mmol/L Normal 22-32 Anion Gap 5 mmol/L Normal 2-11 Glucose 132 mg/dL High 70-100 Blood Urea Nitrogen 18 mg/dL Normal 6-24 Creatinine 0.87 mg/dL Normal 0.67-1.17 BUN/Creatinine Ratio 20.7 High 8-20 Calcium 9.1 mg/dL Normal 8.6-10.3 Total Protein 6.2 g/dL Low 6.4-8.9 Albumin 4.0 g/dL Normal 3.2-5.2 Globulin 2.2 g/dL Normal 2-4 Albumin/Globulin Ratio 1.8 Normal 1-3 Total Bilirubin 0.60 mg/dL Normal 0.2-1.0 Alkaline Phosphatase 126 U/L High 34-104 Alt 13 U/L Normal 7-52 Ast 11 U/L Low 13-39 Egfr Non- 87.0 >60 Egfr 105.3 >60 3 CBC Auto 12/16/2018 [facility] White Blood 4.9 10^3/uL Normal 3.5-10.[address] [place] [address] [phone] Red Blood Count 4.77 10^6/uL Normal 4.18-5.48 Hemoglobin 12.6 g/dL Low 14.0-18.0 Hematocrit 40 % Low 42-52 Mean Corpuscular Volume 83 fL Normal 80-94 Mean Corpuscular Hemoglobin 26 pg Low 27-31 Mean Corpuscular HGB Conc 32 g/dL Normal 31-36 Red Cell Distribution Width 17 % High 10-15 Abs Neutrophils 3.8 10^3/uL Normal 1.5-7.7 Abs Lymphocytes 0.7 10^3/uL Low 1.0-4.8 Abs Monocytes 0.2 10^3/uL Normal 0-0.8 Abs Eosinophils 0.1 10^3/uL Normal 0-0.6 Abs Basophils 0.0 10^3/uL Normal 0-0.2 Abs Nucleated RBC 0.0 10^3/uL Granulocyte % 78.2 % Lymphocyte % 14.8 % Monocyte % 4.6 % Eosinophil % 1.8 % Basophil % 0.6 % Nucleated Red Blood Cells % 0.1 Platelet Count 93 10^3/uL Low 150-450 4 Mean Platelet Volume 9.8 fL Normal 7.4-10.4 Laboratory test 12/16/2018 [facility] Pathologist (SEE NOTE) [address] [place] [address] [phone] [place]/Lambda 12/16/2018 [facility] [place] Free Light 0.2910 Abnormal [address] Chain mg/[place] [address] [phone] Lambda Free Light Chain 0.5500 mg/dL Abnormal 7 [place]/Lambda Free Light Chain 0.5291 8 Immunoglobulins 12/16/2018 [facility] Immunoglobulin G 568 Abnormal 767 - [address] mg/dL 1590 [place] [address] [phone] Immunoglobulin M 39 mg/dL 37 - 286 Immunoglobulin A 7 mg/dL Abnormal 61 - 356 Protein 12/16/2018 [facility] Total 5.8 Abnormal 6.3 - Electrophoresis [address] Protein(Pep) g/dL 7.9 [place] [address] [phone] Albumin 3.3 g/dL Abnormal 3.4-4.7 Alpha-1 Globulin 0.2 g/dL 0.1-0.3 Alpha-2 Globulin 0.9 g/dL 0.6-1.0 Beta Globulin 0.8 g/dL 0.7-1.2 Gamma Globulin 0.5 g/dL Abnormal 0.6-1.6 Albumin/Globulin Ratio 1.34 Impression See Comment 10 Laboratory 12/16/2018 [facility] B-Type 251 pg/mL High <=100 test finding [address] [place] [address] Peptide BNP [phone] Laboratory 12/10/2018 [facility] B-Type <pending> test finding [address] [place] [address] Peptide BNP [phone] CBC Auto Diff 10/15/2018 [facility] White Blood 6.7 Normal 3.5 -10.[address] Count 10^3/[place] [address] [phone] Red Blood Count 4.97 10^6/uL Normal 4.18-5.48 Hemoglobin 12.9 g/dL Low 14.0-18.0 Hematocrit 40 % Low 42-52 Mean Corpuscular Volume 81 fL Normal 80-94 Mean Corpuscular Hemoglobin 26 pg Low 27-31 Mean Corpuscular HGB Conc 32 g/dL Normal 31-36 Red Cell Distribution Width 22 % High 10-15 Platelet Count 146 10^3/uL Low 150-450 Mean Platelet Volume 9.2 fL Normal 7.4-10.4 Abs Neutrophils 4.1 10^3/uL Normal 1.5-7.7 Abs Lymphocytes 1.6 10^3/uL Normal 1.0-4.8 Abs Monocytes 0.6 10^3/uL Normal 0-0.8 Abs Eosinophils 0.3 10^3/uL Normal 0-0.6 Abs Basophils 0.1 10^3/uL Normal 0-0.2 Abs Nucleated RBC 0.0 10^3/uL Granulocyte % 61.0 % Lymphocyte % 24.3 % Monocyte % 9.2 % Eosinophil % 4.6 % Basophil % 0.9 % Nucleated Red Blood Cells % 0.1 Comp Metabolic 10/01/2018 [facility] Sodium 142 mmol/L Normal 135-[address] [place] [address] [phone] Potassium 4.8 mmol/L Normal 3.5-5.0 Chloride 104 mmol/L Normal 101-111 Co2 Carbon Dioxide 29 mmol/L Normal 22-32 Anion Gap 9 mmol/L Normal 2-11 Calcium 9.6 mg/dL Normal 8.6-10.3 Albumin 3.6 g/dL Normal 3.2-5.2 Total Bilirubin 0.50 mg/dL Normal 0.2-1.0 Glucose 125 mg/dL High 70-100 Blood Urea Nitrogen 23 mg/dL Normal 6-24 Creatinine 1.24 mg/dL High 0.67-1.17 BUN/Creatinine Ratio 18.5 Normal 8-20 Total Protein 6.1 g/dL Low 6.4-8.9 Globulin 2.5 g/dL Normal 2-4 Albumin/Globulin Ratio 1.4 Normal 1-3 Alkaline Phosphatase 123 U/L High 34-104 Alt 10 U/L Normal 7-52 Ast 13 U/L Normal 13-39 Egfr Non- 57.8 >60 Egfr 69.9 >60 11 CBC Auto 10/01/2018 [facility] White Blood 7.8 10^3/uL Normal 3.5-10.[address] [place] [address] [phone] Red Blood Count 5.75 10^6/uL High 4.18-5.48 Hemoglobin 14.6 g/dL Normal 14.0-18.0 Hematocrit 46 % Normal 42-52 Mean Corpuscular Volume 80 fL Normal 80-94 Mean Corpuscular Hemoglobin 25 pg Low 27-31 Mean Corpuscular HGB Conc 32 g/dL Normal 31-36 Red Cell Distribution Width 22 % High 10.5-15 Platelet Count 170 10^3/uL Normal 150-450 Mean Platelet Volume 9.9 fL Normal 7.4-10.4 Abs Neutrophils 4.4 10^3/uL Normal 1.5-7.7 Abs Lymphocytes 2.4 10^3/uL Normal 1.0-4.8 Abs Monocytes 0.8 10^3/uL Normal 0-0.8 Abs Eosinophils 0.1 10^3/uL Normal 0-0.6 Abs Basophils 0.0 10^3/uL Normal 0-0.2 Abs Nucleated RBC 0.0 10^3/uL Granulocyte % 57.3 % Lymphocyte % 31.1 % Monocyte % 10.0 % Eosinophil % 1.2 % Basophil % 0.4 % Nucleated Red Blood Cells % 0.2 Immunoglobulins 10/01/2018 [facility] Immunoglobulin G 1210 767 - 12 Serum Quant [address] mg/dL 1590 [place] [address] [phone] Immunoglobulin M 46 mg/dL 37 - 286 Immunoglobulin A 10 mg/dL Abnormal 61 - 356 [place]/Lambda Free 10/01/2018 [facility] [place] Free 2.30 mg/dL Abnormal 13 Light Chains Ser [address] [place] [address] [phone] Lambda Free Light Chain 0.7700 mg/dL 14 [place]/Lambda Free Light Chain 2.99 Abnormal 15 Protein 10/01/2018 [facility] Total 6.0 Abnormal 6.3 - Electrophoresis [address] Protein(Pep) g/dL 7.9 [place] [address] [phone] Albumin 2.9 g/dL Abnormal 3.4-4.7 Alpha-1 Globulin 0.3 g/dL 0.1-0.3 Alpha-2 Globulin 1.2 g/dL Abnormal 0.6-1.0 Beta Globulin 0.7 g/dL 0.7-1.2 Gamma Globulin 0.9 g/dL 0.6-1.6 Albumin/Globulin Ratio 0.91 M Carroll 0.7 g/dL Impression See Comment 16 Laboratory test 09/08/2018 [facility] Cytology SEE RESULT [address] [place] [address] [phone] 1 Because ethnic data is not always [...] 5 Kidney failure <15 (or dialysis) 2 Clinical Scientist: [id number] 3 Because ethnic data is not always readily [...] 15-29 5 Kidney failure <15 (or dialysis) 4 Platelet count confirmed by estimate 5 Normocytic anemia. Moderate thrombocytopenia. No evidence of a hemolytic process. Reviewed by Ayde Waller MD 6 REFERENCE VALUE 0.3300-1.94 7 REFERENCE VALUE 0.5700-2.63 8 REFERENCE VALUE 0.2600-1.65 Test Performed by: [facility] [employer] [place] [address] 9 Test Performed by: [facility] [employer] [place] [address] 10 Small abnormality in gamma fraction, unable to quantitate. Hypogammaglobulinemia Test Performed by: [facility] [employer] [address] 11 Because ethnic data is not always readily [...] 15-29 5 Kidney failure <15 (or dialysis) 12 Test Performed by: [facility] [employer] [place] [address] 13 REFERENCE VALUE 0.3300-1.94 14 REFERENCE VALUE 0.5700-2.63 15 Elevated free light chain ratios between 1.66 and 3.00 may occur due to polyclonal hypergammaglobulinemia or impaired renal clearance. An isolated increased free light chain ratio in this range should be interpreted with caution, and clinical correlation is recommended. REFERENCE VALUE 0.2600-1.65 Test Performed by: [facility] [place] [address] 16 M-spike in gamma fraction. Size of monoclonal protein not changed significantly since 09/21/2018. Test Performed by: [facility] [place] [address] 17 SEE RESULT BELOW Name: BIENVENIDO BLAIR : [address]: Adams Whitmore MD Acct: [id number] Unit: [id number] AGE: 68 Location: Re09/08/18 SEX: M Status: REG REF SPEC: [id number] RIYA: 09/08/18-[address] [facility] [address]: Jhonathan Davis MD REQ: [id number] RECD: 09/08/18-1350 STATUS: MARKOS LOPEZ DR: Marcin Watt MD _ ORDERED: FNA-IMG GUID BX, CYTO ADEQ-1ST P FINAL DIAGNOSIS Right supraclavicular lymph node, Ultrasound guided, fine needle aspiration: -- Benign. -- Mixed lymphoid elements compatible with reactive lymph node. See comment. Comment: Concurrent flow cytometric evaluation performed at [facility] and interpreted by [facility] pathology demonstrates no evidence of light chain restriction or other immunophenotypic abnormality. No evidence of Hodgkin's disease or metastatic neoplasia identified. A. SUPRACLAVICULAR RIGHT - US GUIDED RIGHT SUPRACLAVICULAR LYMPH NODE FINE NEEDLE ASPIRATION CLINICAL HISTORY 1.2 x 1.0 x 0.8 cm right supraclavicular lymph node. Multiple myeloma. IMMEDIATE INTERPRETATION Pass 1, and 2-adequate. CONTINUED ON NEXT PAGE DEPARTMENT OF PATHOLOGY, [address] [place] [address] Sterling Hargrove M.D. Director ALANNAH # [id number] RUN DATE: 09/14/18 [facility] LAB LIVE PAGE 2 Patient: BIENVENIDO [id number] (Continued) GROSS DESCRIPTION (Continued) GROSS DESCRIPTION Ultrasound guided, fine needle aspiration 2 passes with 1 alcohol fixed slide and The specimen is sent to [place], [place] for flow cytometry on 09/08/18. SPECIAL STUDIES Flow cytometry has been performed at [place], [place]. The testing reveals: FINAL DIAGNOSIS: Specimen Source: Lymph node, right supraclavicular ([id number]) Flow cytometry immunophenotypic analysis: No evidence of an immunophenotypically abnormal cell population. Interpretative data: Lymphocytes: 88% of gated events B-cells: 8% of lymphs; kappa:lambda within normal limits T-cells/NK cells: No aberrant population detected. Markers tested: CD3, CD5, CD7, CD10, CD19, CD20, CD23, CD45, kappa surface light chains, lambda surface light chains, 7-AAD. Quality Assessment: Acceptable Viability: Acceptable Viable lymphocytes (7-AAD): 99% Specimen received within validated guidelines. A Ventura-Giemsa stained slide prepared from the flow cytometry specimen was examined for quality purposes. Electronically signed by: Ayde Waller MD 09/09/18 0134 Technical component performed by: [place] [address] L Tacker: Ronald Palafox II, MD, PhD. CONTINUED ON NEXT PAGE DEPARTMENT OF PATHOLOGY, [address] [place] [address] Sterling Hargrove M.D. Director SAI # [id number] RUN DATE: 09/14/18 [facility] LAB LIVE PAGE 3 Patient: BIENVENIDO BLAIR [id number] (Continued) SPECIAL STUDIES (Continued) Signed by and Reported on: Sterling Hargrove MD 10/28 1303 END OF REPORT DEPARTMENT OF PATHOLOGY, [address] [place] [address] Sterling Hargrove M.D. Director [facility] # [id number] Procedures Date Code Description Status 01/15/2019 89582 ECHO Transthoracic, Real-Time 2D With Doppler And Color Completed Flow 01/15/2019 77355 ECHO Transthoracic, Real-Time 2D With Doppler And Color Completed Flow 12/10/2018 95683 Pace Maker Eval W/Iterative Adjment Dual Lead Completed 12/10/2018 45323 Pace Maker Eval W/Iterative Adjment Dual Lead Completed 09/01/2018 68439 Amb.BP Monitor/Phys Interp&Report Completed Medical Devices Description No Information Available Encounters Type Date Location Provider Dx Diagnosis Office Visit 01/19/2019 [facility] Meghan Carlisle, R06.00 Dyspnea, 1:30p Of Audio Visual Secretary N.P. unspecified I48.2 Chronic atrial fibrillation I42.9 Cardiomyopathy, unspecified Z95.0 Presence of cardiac pacemaker I35.0 Nonrheumatic aortic (valve) stenosis I10 Essential (primary) hypertension I25.10 Athscl heart disease of [place] coronary artery w/o ang pctrs Office Visit 12/10/2018 3:20p [facility] Joce Perry I49.5 Sick sinus Of [facility] Maureen Cain syndrome I48.2 Chronic atrial fibrillation I42.9 Cardiomyopathy, unspecified Z95.0 Presence of cardiac pacemaker I26.99 Other pulmonary embolism without acute cor pulmonale E11.9 Type 2 diabetes mellitus without complications I10 Essential (primary) hypertension I35.0 Nonrheumatic aortic (valve) stenosis I25.10 Athscl heart disease of [place] coronary artery w/o ang pctrs R06.00 Dyspnea, unspecified Office Visit 11/05/2018 10:17a [facility] Frederick Moses I26.99 Other pulmonary Assoc,delfino Perera M.D.,FACP embolism Hospitalists without acute cor pulmonale I48.91 Unspecified atrial fibrillation C90.00 Multiple myeloma not having achieved remission E11.9 Type 2 diabetes mellitus without complications Office Visit 10/08/2018 3:00p [facility] Meghan Collins I10 Essential ( primary) Of [facility] Orestes N.PJailyn hypertension I49.5 Sick sinus syndrome I42.9 Cardiomyopathy, unspecified I48.2 Chronic atrial fibrillation I25.10 Athscl heart disease of [place] coronary artery w/o ang pctrs I35.0 Nonrheumatic aortic (valve) stenosis Assessments Date Code Description Provider 01/19/2019 R06.00 Dyspnea, unspecified Meghan S. Orestes, N.P. 01/19/2019 I48.2 Chronic atrial fibrillation Meghan SJailyn Carlisle, N.P. 01/19/2019 I42.9 Cardiomyopathy, unspecified Meghan S. Orestes, N.P. 01/19/2019 Z95.0 Presence of cardiac pacemaker Meghan SJailyn Carlisle, N.P. 01/19/2019 I35.0 Nonrheumatic aortic (valve) stenosis Meghan SJailyn Carlisle, N.P. 01/19/2019 I10 Essential (primary) hypertension Meghan S. Flaca Carlisle 01/19/2019 I25.10 Atherosclerotic heart disease of Meghan Dennis Carlisle N.P. [place] coronary artery with 01/15/2019 R06.00 Dyspnea, unspecified Joce Cain M.D. 01/15/2019 R06.00 Dyspnea, unspecified Traveling ECHO 1 12/10/2018 I49.5 Sick sinus syndrome Joce Cain M.D. 12/10/2018 I49.5 Sick sinus syndrome Ica Pacer Schedule 12/10/2018 I48.2 Chronic atrial fibrillation Joce Cain M.D. 12/10/2018 I48.2 Chronic atrial fibrillation Ica Pacer Schedule 12/10/2018 I42.9 Cardiomyopathy, unspecified Joce Cain M.D. 12/10/2018 I42.9 Cardiomyopathy, unspecified Ica Pacer Schedule 12/10/2018 Z95.0 Presence of cardiac pacemaker Joce Cain M.D. 12/10/2018 Z95.0 Presence of cardiac pacemaker Joce Cain M.D. 12/10/2018 Z95.0 Presence of cardiac pacemaker Ica Pacer Schedule 12/10/2018 I26.99 Other pulmonary embolism without acute Joce Cain M.D. cor pulmonale 12/10/2018 E11.9 Type 2 diabetes mellitus without Joce Cain M.D. complications 12/10/2018 I10 Essential (primary) hypertension Joce Cain M.D. 12/10/2018 I35.0 Nonrheumatic aortic (valve) stenosis Joce Cain M.D. 12/10/2018 I25.10 Atherosclerotic heart disease of Joce Cain M.D. [place] coronary artery with 12/10/2018 R06.00 Dyspnea Joce Cain M.D. 11/05/2018 I26.99 Other pulmonary embolism without acute Frederick Perera M.D.,FAC cor pulmonale 11/05/2018 I48.91 Unspecified atrial fibrillation Frederick Perera M.D., FACP 11/05/2018 C90.00 Multiple myeloma not having achieved Frederick Perera M.D.,FACP remission 11/05/2018 E11.9 Type 2 diabetes mellitus without Frederick Perera M.D., FACP complications 10/08/2018 I10 Essential (primary) hypertension Meghan SJailyn Carlisle, N.P. 10/08/2018 I49.5 Sick sinus syndrome Meghan Carlisle, N.P. 10/08/2018 I42.9 Cardiomyopathy, unspecified Meghan Carlisle, N.P. 10/08/2018 I48.2 Chronic atrial fibrillation Meghan Carlisle, N.P. 10/08/2018 I25.10 Atherosclerotic heart disease of Meghan Collins Orestes, N.P. [place] coronary artery with 10/08/2018 I35.0 Nonrheumatic aortic (valve) stenosis Meghan Carlisle, N.P. 09/01/2018 I10 Essential (primary) hypertension Joce Cain M.D. Plan of Treatment Future Appointment(s):03/17/2019 3:40 pm - Mitchel Rivas M.D., FAC, [facility] AT [facility]03/11/2019 9:30 am - Bertha Chavarria MD, [facility] , [facility] at [facility] AT [facility]01/19/2019 - Meghan Carlisle, N.P.R06.00 Dyspnea, fgppbcodgugA70.2 Chronic atrial adryyodxkarhB37.9 Cardiomyopathy, unspecifiedFollow up:2-3 weeks OV [facility] 06/2019 OV JFecommendations:You are 14 lbs up. Blood pressure is low. Decrease metoprolol to 1/2 (25mg) tab daily Increase Lasixto 20mg daily. Continue to check weights at home and call is weight/swelling is not improving.Z95.0 Presence of cardiac zazzzkloyQ44.0 Nonrheumatic aortic (valve) stenosisReferral: Chacorta Gómez MD, Interventional PvfmakwwdsE17 Essential (primary) fpycmlxjazrgY54.10 Atherosclerotic heart disease of [place] coronary artery withRecommendations:Restart ASA baby 81mg Functional Status Description No Information Available Mental Status Description No Information Available Referrals Refer to Dr Reason for Referral Status Appt Date Chacorta Gómez MD aortic stenosis Sent [address] [place] [address] [phone]
--- OUTSIDE RECORDS SUMMARY | 2019-03-07 12:46 | XMS REPORT | Continuity of Care Document ---
:1950 External Reference #:[id number] Author Name Meghan Carlisle N.P. 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 Tablets DR Elise 1 by mouth twice a Unknown 12/10/2018 5mg Tablets day Toprol XL 1/2 tab by mouth 45tabs Joce Perry 06/30/2018 25mg every day Maureen Cain Tablets ER 24HR Gabapentin Take One To Two 60caps M54.41 Dameon Chavarria, 02/26/2017 300mg Capsules By Mouth AT M.D. Capsules Bedtime Amoxicillin 4 tablets 1 hour 12caps Dameon Chavarria, 03/09/2015 500mg before dental work M.D. Capsules [...] Joce Cain, 09/14/2018 - 2.5mg once daily MChristo 12/10/2018 Capsules Medications Administered in Office Medication SIG Qnty Indications Ordering Provider Date Depomedrol 40MG Dameon Chavarria M.D. 01/24/2016 Injection Immunizations Description No Information Available Vital Signs Date Vital Result Comment 03/05/2019 1:17pm Height 72 inches 6'0" Weight 263.00 lb with shoes Heart Rate 74 /min BP Systolic Sitting 144 mmHg Lue large cuff BP Diastolic Sitting 88 mmHg Lue large cuff Respiratory Rate 13 /min BMI (Body Mass Index) 35.7 kg/m2 Ejection Fraction 55-60% 01/15/2019 ECHO 01/19/2019 1:16pm Height 72 inches 6'0" Weight 264.00 lb with shoes Heart Rate 60 /min BP Systolic Sitting 102 mmHg Lue BP Diastolic Sitting 64 mmHg Lue BP Systolic Standing 102 mmHg Lue BP Diastolic Standing 60 mmHg Lue BMI (Body Mass Index) 35.8 kg/m2 Ejection Fraction 55-60% Echo 01/15/19 Results Test Date Facility Test Result H/L Range Note CBC Auto 03/03/2019 [facility] White Blood 6.1 10^3/uL Normal 3.5-10.[address] [place] [address] [phone] Red Blood Count 4.34 10^6/uL Normal 4.18-5.48 Hemoglobin 11.2 g/dL Low 14.0-18.0 Hematocrit 34 % Low 42-52 Mean Corpuscular Volume 79 fL Low 80-94 Mean Corpuscular Hemoglobin 26 pg Low 27-31 Mean Corpuscular HGB Conc 33 g/dL Normal 31-36 Red Cell Distribution Width 17 % High 10-15 Platelet Count 113 10^3/uL Low 150-450 Mean Platelet Volume 9.5 fL Normal 7.4-10.4 Abs Neutrophils 4.7 10^3/uL Normal 1.5-7.7 Abs Lymphocytes 0.8 10^3/uL Low 1.0-4.8 Abs Monocytes 0.4 10^3/uL Normal 0-0.8 Abs Eosinophils 0.2 10^3/uL Normal 0-0.6 Abs Basophils 0.0 10^3/uL Normal 0-0.2 Abs Nucleated RBC 0.0 10^3/uL Granulocyte % 76.8 % Lymphocyte % 13.8 % Monocyte % 6.4 % Eosinophil % 2.5 % Basophil % 0.5 % Nucleated Red Blood Cells % 0.0 Basic Metabolic 03/03/2019 [facility] Sodium 142 mmol/L Normal 135-[address] [place] [address] [phone] Potassium 4.0 mmol/L Normal 3.5-5.0 Chloride 104 mmol/L Normal 101-111 Co2 Carbon Dioxide 31 mmol/L Normal 22-32 Anion Gap 7 mmol/L Normal 2-11 Glucose 131 mg/dL High 70-100 Blood Urea Nitrogen 19 mg/dL Normal 6-24 Creatinine 0.98 mg/dL Normal 0.67-1.17 BUN/Creatinine Ratio 19.4 Normal 8-20 Calcium 9.0 mg/dL Normal 8.6-10.3 Egfr Non- 75.8 >60 Egfr 91.8 >60 1 Laboratory 01/27/2019 [facility] B-Type 161 pg/mL High <=100 test finding [address] [place] [address] Peptide BNP [phone] CBC Auto Diff 01/27/2019 [facility] White Blood 5.5 Normal 3.5 -10.[address] Count 10^3/[place] [address] [phone] Red Blood Count 4.34 10^6/uL Normal 4.18-5.48 [...] Blood Cells % 0.0 Comp Metabolic 01/27/2019 [facility] Sodium 142 mmol/L Normal 135-145 Panel [address] [place] [address] [phone] Potassium 4.1 mmol/L Normal 3.5-5.0 Chloride 103 [...] Egfr Non- 84.8 >60 Egfr 102.6 >60 2 Laboratory test 01/07/2019 [facility] Point of 124 mg/dL High 70-100 [address] [place] [address] [phone] Comp Metabolic 12/16/2018 [facility] Sodium 144 mmol/L Normal 135-[address] [place], [place] [address] [phone] Potassium 3.9 mmol/L Normal 3.5-5.0 Chloride 110 [...] Egfr Non- 87.0 >60 Egfr 105.3 >60 4 Laboratory test 12/16/2018 [facility] B-Type 251 High <=[address] Natriuretic pg/[place] [address] Peptide BNP [phone] Protein 12/16/2018 [facility] Total 5.8 Abnormal 6.3 - Electrophoresis [address] Protein(Pep) g/dL 7.9 [place], [place] [phone] Albumin 3.3 g/dL Abnormal 3.4-4.7 Alpha-1 Globulin 0.2 g/dL 0.1-0.3 Alpha-2 Globulin 0.9 g/dL 0.6-1.0 Beta Globulin 0.8 g/dL 0.7-1.2 Gamma Globulin 0.5 g/dL Abnormal 0.6-1.6 Albumin/Globulin Ratio 1.34 Impression See Comment 5 Immunoglobulins 12/16/2018 [facility] Immunoglobulin G 568 Abnormal 767 - 6 Serum Quant [address] mg/dL 1590 [place] [address] [phone] Immunoglobulin M 39 mg/dL 37 - 286 Immunoglobulin A 7 mg/dL Abnormal 61 - 356 Avalon/Lambda Free 12/16/2018 [facility] Avalon Free 0.2910 mg/dL Abnormal 7 Light Chains Ser [address] [place] [address] [phone] Lambda Free Light Chain 0.5500 mg/dL Abnormal 8 Avalon/Lambda Free Light Chain 0.5291 9 Laboratory test 12/16/2018 [facility] Pathologist (SEE NOTE) [address] [place] [address] [phone] CBC Auto Diff 12/16/2018 [facility] White Blood 4.9 Normal 3.5 - [address] Count 10^3/uL 10.8 [place] [address] [phone] Red Blood Count 4.77 10^6/uL Normal 4.18-5.48 [...] 0.1 Platelet Count 93 10^3/uL Low 150-450 11 Mean Platelet Volume 9.8 fL Normal 7.4-10.4 Laboratory test 12/10/2018 [facility] B-Type <pending> finding [address] [place] [address] Peptide BNP [phone] CBC Auto Diff 10/15/2018 [facility] White Blood 6.7 10^3/uL Normal 3.5- [address] Count 10.8 [place], [place] [address] [phone] Red Blood Count 4.97 10^6/uL Normal 4.18-5.48 [...] Blood Cells % 0.1 Comp Metabolic 10/01/2018 [facility] Sodium 142 mmol/L Normal 135-145 Panel [address] [place] [address] [phone] Potassium 4.8 mmol/L Normal 3.5-5.0 Chloride 104 [...] Egfr Non- 57.8 >60 Egfr 69.9 >60 12 CBC Auto 10/01/2018 [facility] White Blood 7.8 10^3/uL Normal 3.5-10.[address] [place] [address] [phone] Red Blood Count 5.75 10^6/uL High 4.18-5.48 [...] Red Blood Cells % 0.2 Immunoglobulins 10/01/2018 [facility] Immunoglobulin G 1210 767 - 13 Serum Quant [address] mg/dL 1590 [place] [address] [phone] Immunoglobulin M 46 mg/dL 37 - 286 Immunoglobulin A 10 mg/dL Abnormal 61 - 356 Avalon/Lambda Free 10/01/2018 [facility] Avalon Free 2.30 mg/dL Abnormal 14 Light Chains Ser [address] [place] [address] [phone] Lambda Free Light Chain 0.7700 mg/dL 15 Avalon/Lambda Free Light Chain 2.99 Abnormal 16 Protein 10/01/2018 [facility] Total 6.0 Abnormal 6.3 - Electrophoresis [address] Protein(Pep) g/dL 7.9 [place] [address] [phone] Albumin 2.9 g/dL Abnormal 3.4-4.7 Alpha-1 Globulin 0.3 g/dL 0.1-0.3 Alpha-2 Globulin 1.2 g/dL Abnormal 0.6-1.0 Beta Globulin 0.7 g/dL 0.7-1.2 Gamma Globulin 0.9 g/dL 0.6-1.6 Albumin/Globulin Ratio 0.91 M Carroll 0.7 g/dL Impression See Comment 17 Laboratory test 09/08/2018 [facility] Cytology SEE RESULT [address] Non-Director Of Aviation BELOW [place] [id number] [phone] 1 Because ethnic data is not always [...] 5 Kidney failure <15 (or dialysis) 2 Because ethnic data is not always readily [...] 15-29 5 Kidney failure <15 (or dialysis) 3 Corn Detasseler: [id number] 4 Because ethnic data is not always readily [...] 15-29 5 Kidney failure <15 (or dialysis) 5 Small abnormality in gamma fraction, unable to quantitate. Hypogammaglobulinemia Test Performed by: [email or web address] [address] 6 Test Performed by: [facility] [place] [address] 7 REFERENCE VALUE 0.3300-1.94 8 REFERENCE VALUE 0.5700-2.63 9 REFERENCE VALUE 0.2600-1.65 Test Performed by: [facility] [place] [address] 10 Normocytic anemia. Moderate thrombocytopenia. No evidence of a hemolytic process. Reviewed by Ayde Waller MD 11 Platelet count confirmed by estimate 12 Because ethnic data is not always readily [...] 15-29 5 Kidney failure <15 (or dialysis) 13 Test Performed by: [facility] [employer] [place] [address] 14 REFERENCE VALUE 0.3300-1.94 15 REFERENCE VALUE 0.5700-2.63 16 Elevated free light chain ratios between 1.66 and 3.00 may occur due to polyclonal hypergammaglobulinemia or impaired renal clearance. An isolated increased free light chain ratio in this range should be interpreted with caution, and clinical correlation is recommended. REFERENCE VALUE 0.2600-1.65 Test Performed by: [facility] [facility] [place] [address] 17 M-spike in gamma fraction. Size of monoclonal protein not changed significantly since 09/21/2018. Test Performed by: [facility] [place] [address] 18 SEE RESULT BELOW Name: BIENVENIDO FERREIRA : [address]: Adams Whitmore MD Acct: [id number] Unit: [id number] AGE: 68 Location: Re09/08/18 SEX: M Status: REG REF SPEC: [id number] RIYA: 09/08/18-1325 [facility] DR: Jhonathan Davis MD REQ: [id number] RECD: 09/08/18-1349 STATUS: MARKOS LOPEZ DR: Marcin Watt MD _ ORDERED: FNA-IMG GUID BX, CYTO ADEQ-1ST P FINAL DIAGNOSIS Right supraclavicular lymph node, Ultrasound guided, fine needle aspiration: -- Benign. -- Mixed lymphoid elements compatible with reactive lymph node. See comment. Comment: Concurrent flow cytometric evaluation performed at [facility] and interpreted by [facility] pathology demonstrates no evidence of light chain restriction or other immunophenotypic abnormality. No evidence of Hodgkin's disease or metastatic neoplasia identified. A. SUPRACLAVICULAR RIGHT - US GUIDED RIGHT SUPRACLAVICULAR LYMPH NODE FINE NEEDLE ASPIRATION CLINICAL HISTORY 1.2 x 1.0 x 0.8 cm right supraclavicular lymph node. Multiple myeloma. IMMEDIATE INTERPRETATION Pass 1, and 2-adequate. CONTINUED ON NEXT PAGE DEPARTMENT OF PATHOLOGY, [address] [place] [address] Sterling Hargrove M.D. Director [facility] # [id number] RUN DATE: 09/14/18 [facility] LAB LIVE PAGE 2 Patient: BIENVENIDO FERREIRA [id number] (Continued) GROSS DESCRIPTION (Continued) GROSS DESCRIPTION Ultrasound guided, fine needle aspiration 2 passes with 1 alcohol fixed slide and The specimen is sent to [place], [place] for flow cytometry on 09/08/18. SPECIAL STUDIES Flow cytometry has been performed at [facility], [place], [place]. The testing reveals: FINAL DIAGNOSIS: Specimen Source: Lymph node, right supraclavicular ([id number]) Flow cytometry immunophenotypic analysis: No evidence of [...] Electronically signed by: Ayde Waller MD 09/09/18 1436 Technical component performed by: [facility] - [address] [address] Lcac Operator: Ronald Palafox II, MD, PhD. CONTINUED ON NEXT PAGE DEPARTMENT OF PATHOLOGY, [facility] [place] [address] Sterling Hargrove M.D. Director [facility] # [id number] RUN DATE: 09/14/18 [facility] LAB LIVE PAGE 3 Patient: BIENVENIDO FERREIRA [id number] (Continued) SPECIAL STUDIES (Continued) Signed by and Reported on: Sterling Hargrove MD 10/28 1303 END OF REPORT DEPARTMENT OF PATHOLOGY, [facility] [place], [place] [address] Sterling Hargrove M.D. Director [facility] # [id number] Procedures Date Code Description Status 03/05/2019 30039 EKG Tracing & Interpretation Completed 01/15/2019 09593 ECHO Transthoracic, Real-Time 2D With Doppler And Color Completed Flow 01/15/2019 83332 ECHO Transthoracic, Real-Time 2D With Doppler And Color Completed Flow 12/10/2018 37271 Pace Maker Eval W/Iterative Adjment Dual Lead Completed 12/10/2018 18524 Pace Maker Eval W/Iterative Adjment Dual Lead Completed Medical Devices Description No Information Available Encounters Type Date Location Provider Dx Diagnosis Office Visit 01/19/2019 [facility] Meghan Carlisle, R06.00 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 syndrome I48.2 Chronic atrial fibrillation I42.9 Cardiomyopathy, unspecified Z95.0 Presence of cardiac pacemaker I26.99 Other pulmonary embolism without acute cor pulmonale E11.9 Type 2 diabetes mellitus without complications I10 Essential (primary) hypertension I35.0 Nonrheumatic aortic (valve) stenosis I25.10 Athscl heart disease of [place] coronary artery w/o ang pctrs R06.00 Dyspnea, unspecified Office Visit 11/05/2018 10:17a [facility] Frederick Moses I26.99 Other pulmonary Assoc,delfino Perera M.D.,FACP embolism Hospitalists without acute cor pulmonale I48.91 Unspecified atrial fibrillation C90.00 Multiple myeloma not having achieved remission E11.9 Type 2 diabetes mellitus without complications Office Visit 10/08/2018 3:00p [facility] Meghan Collins I10 Essential ( primary) Of César Carlisle N.PJailyn hypertension I49.5 Sick sinus syndrome I42.9 Cardiomyopathy, unspecified I48.2 Chronic atrial fibrillation I25.10 Athscl heart disease of [place] coronary artery w/o ang pctrs I35.0 Nonrheumatic aortic (valve) stenosis Assessments Date Code Description Provider 03/05/2019 R06.00 Dyspnea, unspecified Meghan S. Orestes, N.P. 03/05/2019 I42.9 Cardiomyopathy, unspecified Meghan S. Foster, N.P. 03/05/2019 Z95.0 Presence of cardiac pacemaker Meghan S. Orestes, N.P. 03/05/2019 I35.0 Nonrheumatic aortic (valve) stenosis Meghan S. Orestes, N.P. 03/05/2019 I10 Essential (primary) hypertension Meghan S. Orestes, N.P. 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 Orestes, N.P. [place] coronary artery with 01/19/2019 R06.00 Dyspnea, unspecified Meghan S. Orestes, N.P. 01/19/2019 I48.2 Chronic atrial fibrillation Meghan S. Orestes, N.P. 01/19/2019 I42.9 Cardiomyopathy, unspecified Meghan S. Orestes, N.P. 01/19/2019 Z95.0 Presence of cardiac pacemaker Meghan S. Orestes, N.P. 01/19/2019 I35.0 Nonrheumatic aortic (valve) stenosis Meghan S. Orestes, N.P. 01/19/2019 I10 Essential (primary) hypertension Meghan S. Orestes, N.P. 01/19/2019 I25.10 Atherosclerotic heart disease of Meghan SJailyn Carlisle, N.P. [place] coronary artery with 01/15/2019 R06.00 Dyspnea, unspecified [...] Atherosclerotic heart disease of Joce Cain M.D. [place] coronary artery with 12/10/2018 R06.00 Dyspnea Joce Cain M.D. 11/05/2018 I26.99 Other pulmonary embolism without acute Frederick Perera M.D.,FACP cor pulmonale 11/05/2018 I48.91 Unspecified atrial fibrillation Frederick Perera M.D., FACP 11/05/2018 C90.00 Multiple myeloma not having achieved Frederick Perera M.D.,FACP remission 11/05/2018 E11.9 Type 2 diabetes mellitus without Frederick Perera M.D., FACP complications 10/08/2018 I10 Essential (primary) hypertension Meghan Carlisle, N.P. 10/08/2018 I49.5 Sick sinus syndrome Meghan Carlisle, N.P. 10/08/2018 I42.9 Cardiomyopathy, unspecified Meghan Carlisle, N.P. 10/08/2018 I48.2 Chronic atrial fibrillation Meghan Carlisle, N.P. 10/08/2018 I25.10 Atherosclerotic heart disease of Meghan Carlisle, N.PJailyn [place] coronary artery with 10/08/2018 I35.0 Nonrheumatic aortic (valve) stenosis Meghan Carlisle N.P. Plan of Treatment Future Appointment(s):03/17/2019 3:40 pm - Mitchel Rivas M.D., [facility], [facility] at [facility] AT [facility]03/11/2019 9:30 am - Bertha Chavarria MD, FAC , [facility] at [facility] AT [facility]03/05/2019 - Jose Schulte.P.R06.00 Dyspnea, mxzfvlotiuvV23.9 Cardiomyopathy, unspecifiedRecommendations: Please let us know if weight > 265 and does not come down with an extra dose of Lasix.Z95.0 Presence of cardiac givosjnezT30.0 Nonrheumatic aortic (valve) stenosisFollow up:cath wound check week later already scheduled. Tavr f/u when scheduled. OV JFM 06/2019Recommendations:Continue daily Lasix Will find out with you are taking steroids which may be making leg swelling worse.I10 Essential (primary) cyjwqabyxxtxO38.10 Atherosclerotic heart disease of [place] coronary artery with Functional Status Description No Information Available Mental Status Description No Information Available Referrals Refer to Dr Reason for Referral Status Appt Date Dalia, MD Chacorta aortic stenosis Sent [address] [place] [address] [phone]
--- OUTSIDE RECORDS SUMMARY | 2019-03-07 12:47 | XMS REPORT | Continuity of Care Document ---
:1950 External Reference #:[id number] Author Name Meghan Carlisle N.P. 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 Tablets DR Elise 1 by mouth twice a Unknown 12/10/2018 5mg Tablets day Atorvastatin Calcium 1/2 tab by mouth Joce Perry 08/07/2018 every day Maureen Cain 20mg Tablets Furosemide 1 tabs by mouth Meghan Carlisle, 08/07/2018 20mg daily N.P. Tablets Toprol XL 1/2 tab by mouth 90tabs Joce Perry 06/30/2018 25mg every day Maureen Cain Tablets ER 24HR Gabapentin Take One To Two 60caps M54.41 Dameon Chavarria, 02/26/2017 300mg Capsules By Mouth AT M.D. Capsules Bedtime Amoxicillin 4 tablets 1 hour 12caps Dameon Chavarria, 03/09/2015 500mg before dental work M.D. Capsules Morphine Sulfate ER 1 tab by mouth twice I42.9 Unknown daily 30mg Caps ER 24HR Albuterol Sulfate Unknown HFA 108(90Base) mcg/Act Aerosol Iferex 150 1 by mouth every day Unknown 150mg Capsules Metformin HCL 1 by mouth twice a Unknown 1000mg day Tablets Oxycodone HCL 1 tab by mouth every Unknown 5mg 12 hours as needed Capsules pain Docusate Sodium 1 tab every 12 hours [...] Test Result H/L Range Note Laboratory test 01/07/2019 [facility] Point of Care 124 mg/dL High 70-[address] [place] [address] [phone] Comp Metabolic 12/16/2018 [facility] Sodium 144 mmol/L Normal 135-[address] [place] [address] [phone] Potassium 3.9 mmol/L Normal 3.5-5.0 Chloride 110 [...] Egfr Non- 87.0 >60 Egfr 105.3 >60 2 CBC Auto 12/16/2018 [facility] White Blood 4.9 10^3/uL Normal 3.5-10.[address] [place] [address] [phone] Red Blood Count 4.77 10^6/uL Normal 4.18-5.48 [...] 0.1 Platelet Count 93 10^3/uL Low 150-450 3 Mean Platelet Volume 9.8 fL Normal 7.4-10.4 Laboratory test 12/16/2018 [facility] Pathologist (SEE NOTE) [address] [place] [address] [phone] [place]/Lambda 12/16/2018 [facility] [place] Free Light 0.2910 Abnormal [address] Chain mg/[place] [address] [phone] Lambda Free Light Chain 0.5500 mg/dL Abnormal 6 [place]/Lambda Free Light Chain 0.5291 7 Immunoglobulins 12/16/2018 [facility] Immunoglobulin G 568 Abnormal 767 - [address] mg/dL 1590 [place] [address] [phone] Immunoglobulin M 39 mg/dL 37 - 286 Immunoglobulin A 7 mg/dL Abnormal 61 - 356 Protein 12/16/2018 [facility] Total 5.8 Abnormal 6.3 - Electrophoresis [address] Protein(Pep) g/dL 7.9 [place] [address] [phone] Albumin 3.3 g/dL Abnormal 3.4-4.7 Alpha-1 Globulin 0.2 g/dL 0.1-0.3 Alpha-2 Globulin 0.9 g/dL 0.6-1.0 Beta Globulin 0.8 g/dL 0.7-1.2 Gamma Globulin 0.5 g/dL Abnormal 0.6-1.6 Albumin/Globulin Ratio 1.34 Impression See Comment 9 Laboratory 12/16/2018 [facility] B-Type 251 pg/mL High <=100 test finding [address] [place] [address] Peptide BNP [phone] Laboratory 12/10/2018 [facility] B-Type <pending> test finding [address] [place] [address] Peptide BNP [phone] CBC Auto Diff 10/15/2018 [facility] White Blood 6.7 Normal 3.5 -10.[address] Count 10^3/[place] [address] [phone] Red Blood Count 4.97 10^6/uL Normal 4.18-5.48 [...] Blood Cells % 0.1 Comp Metabolic 10/01/2018 [facility] Sodium 142 mmol/L Normal 135-[address] [place] [address] [phone] Potassium 4.8 mmol/L Normal 3.5-5.0 Chloride 104 [...] Egfr Non- 57.8 >60 Egfr 69.9 >60 10 CBC Auto 10/01/2018 [facility] White Blood 7.8 10^3/uL Normal 3.5-10.[address] [place] [address] [phone] Red Blood Count 5.75 10^6/uL High 4.18-5.48 [...] Red Blood Cells % 0.2 Immunoglobulins 10/01/2018 [facility] Immunoglobulin G 1210 767 - 11 Serum Quant [address] mg/dL 1590 [place] [address] [phone] Immunoglobulin M 46 mg/dL 37 - 286 Immunoglobulin A 10 mg/dL Abnormal 61 - 356 [place] Free 10/01/2018 [facility] [place] Free 2.30 mg/dL Abnormal 12 Light Chains Ser [address] [place] [place] [address] [phone] Lambda Free Light Chain 0.7700 mg/dL 13 [place] Free Light Chain 2.99 Abnormal 14 Protein 10/01/2018 [facility] Total 6.0 Abnormal 6.3 - Electrophoresis [address] Protein(Pep) g/dL 7.9 [place] [address] [phone] Albumin 2.9 g/dL Abnormal 3.4-4.7 Alpha-1 Globulin 0.3 g/dL 0.1-0.3 Alpha-2 Globulin 1.2 g/dL Abnormal 0.6-1.0 Beta Globulin 0.7 g/dL 0.7-1.2 Gamma Globulin 0.9 g/dL 0.6-1.6 Albumin/Globulin Ratio 0.91 M Carroll 0.7 g/dL Impression See Comment 15 Laboratory test 09/08/2018 [facility] Cytology SEE RESULT [address] Non-Software [place] [address] [phone] Laboratory test 08/26/2018 [facility] Point of Care 134 mg/dL High 70-10 [address] Glucose 0 [place] [address] [phone] 1 [employer] Sanitarian: [id number] 2 Because ethnic data is not always [...] 5 Kidney failure <15 (or dialysis) 3 Platelet count confirmed by estimate 4 Normocytic anemia. Moderate thrombocytopenia. No evidence of a hemolytic process. Reviewed by Ayde Waller MD 5 REFERENCE VALUE 0.3300-1.94 6 REFERENCE VALUE 0.5700-2.63 7 REFERENCE VALUE 0.2600-1.65 Test Performed by: [facility] [place] [address] 8 Test Performed by: [facility] [place] [address] 9 Small abnormality in gamma fraction, unable to quantitate. Hypogammaglobulinemia Test Performed by: [facility] [place] [address] 10 Because ethnic data is not always readily [...] 15-29 5 Kidney failure <15 (or dialysis) 11 Test Performed by: [facility] [place] [address] 12 REFERENCE VALUE 0.3300-1.94 13 REFERENCE VALUE 0.5700-2.63 14 Elevated free light chain ratios between 1.66 and 3.00 may occur due to polyclonal hypergammaglobulinemia or impaired renal clearance. An isolated increased free light chain ratio in this range should be interpreted with caution, and clinical correlation is recommended. REFERENCE VALUE 0.2600-1.65 Test Performed by: [facility] [place] [employer] [address] [place] [address] 15 M-spike in gamma fraction. Size of monoclonal protein not changed significantly since 09/21/2018. Test Performed by: [facility] [place] [employer] [address] [place] [address] 16 SEE RESULT BELOW Name: BIENVENIDO FERREIRA : [address]: Adams Whitmore MD Acct: [id number] Unit: [id number] AGE: 68 Location: Re09/08/18 SEX: M Status: REG REF SPEC: [id number] RIYA: 09/08/18-[address] [facility] [address]: Jhonathan Davis MD REQ: [id number] RECD: 09/08/18-3315 STATUS: MARKOS LOPEZ DR: Marcin Watt MD _ ORDERED: FNA-IMG GUID BX, CYTO ADEQ-1ST P FINAL DIAGNOSIS Right supraclavicular lymph node, Ultrasound guided, fine needle aspiration: -- Benign. -- Mixed lymphoid elements compatible with reactive lymph node. See comment. Comment: Concurrent flow cytometric evaluation performed at [facility] [place] and interpreted by [facility] pathology demonstrates no evidence of light chain restriction or other immunophenotypic abnormality. No evidence of Hodgkin's disease or metastatic neoplasia identified. A. SUPRACLAVICULAR RIGHT - US GUIDED RIGHT SUPRACLAVICULAR LYMPH NODE FINE NEEDLE ASPIRATION CLINICAL HISTORY 1.2 x 1.0 x 0.8 cm right supraclavicular lymph node. Multiple myeloma. IMMEDIATE INTERPRETATION Pass 1, and 2-adequate. CONTINUED ON NEXT PAGE DEPARTMENT OF PATHOLOGY, [address] [place] [address] Sterling Hargrove M.D. Director CLIA # [id number] RUN DATE: 09/14/18 [facility] LAB LIVE PAGE 2 Patient: BIENVENIDO FERREIRA [id number] (Continued) GROSS DESCRIPTION (Continued) GROSS DESCRIPTION Ultrasound guided, fine needle aspiration 2 passes with 1 alcohol fixed slide and The specimen is sent to [place], [place] for flow cytometry on 09/08/18. SPECIAL STUDIES Flow cytometry has been performed at [facility], [place], [place]. The testing reveals: FINAL DIAGNOSIS: Specimen Source: Lymph node, right supraclavicular ([id number]) Flow cytometry immunophenotypic analysis: No evidence of [...] Electronically signed by: Ayde Waller MD 09/09/18 1437 Technical component performed by: [place] [address] Metal Drill Operator: Ronald Palafox II, MD, PhD. CONTINUED ON NEXT PAGE DEPARTMENT OF PATHOLOGY, [address] [place] [address] Sterling Hargrove M.D. Director [facility] # [id number] RUN DATE: 09/14/18 [facility] LAB LIVE PAGE 3 Patient: BIENVENIDO FERREIRA [id number] (Continued) SPECIAL STUDIES (Continued) Signed by and Reported on: Sterling Hargrove MD 10/28 1303 END OF REPORT DEPARTMENT OF PATHOLOGY, [address] [place] [address] Sterling Hargrove M.D. Director [facility] # [id number] 17 [employer]itarian: [id number] Procedures Date Code Description Status 01/15/2019 60574 ECHO Transthoracic, Real-Time 2D With Doppler And Color Completed Flow 01/15/2019 28478 ECHO Transthoracic, Real-Time 2D With Doppler And Color Completed Flow 12/10/2018 56278 Pace Maker Eval W/Iterative Adjment Dual Lead Completed 12/10/2018 78227 Pace Maker Eval W/Iterative Adjment Dual Lead Completed 09/01/2018 98660 Amb.BP Monitor/Phys Interp&Report Completed 08/26/2018 41997 With Endobronchial Ultrasound Guided Completed Medical Devices Description No Information Available Encounters Type Date Location Provider Dx Diagnosis Office Visit 12/10/2018 [facility] Joce Perry I49.5 Sick sinus 3:20p Of César Cain M.D. syndrome I48.2 Chronic atrial fibrillation I42.9 Cardiomyopathy, unspecified Z95.0 Presence of cardiac pacemaker I26.99 Other pulmonary embolism without acute cor pulmonale E11.9 Type 2 diabetes mellitus without complications I10 Essential (primary) hypertension I35.0 Nonrheumatic aortic (valve) stenosis I25.10 Athscl heart disease of [place] coronary artery w/o ang pctrs R06.00 Dyspnea, unspecified Office Visit 11/05/2018 10:17a [facility] I26.99 Other pulmonary Assoc,delfino Perera M.D.,FACP embolism Hospitalists without acute cor pulmonale I48.91 Unspecified atrial fibrillation C90.00 Multiple myeloma not having achieved remission E11.9 Type 2 diabetes mellitus without complications Office Visit 10/08/2018 3:00p [facility] Meghan Collins I10 Essential ( primary) Of César Carlisle, N.P. hypertension I49.5 Sick sinus syndrome I42.9 Cardiomyopathy, unspecified I48.2 Chronic atrial fibrillation I25.10 Athscl heart disease of [place] coronary artery w/o ang pctrs I35.0 Nonrheumatic aortic (valve) stenosis Office Visit 08/31/2018 8:45a [facility] And Angela R59.0 [facility] Amy enlarged lymph Paradichlorobenzene Tender nodes G47.33 Obstructive sleep apnea (adult) (pediatric) Office Visit 08/24/2018 2:00p [facility] Angela R59.0 [facility] enlarged lymph Paradichlorobenzene Tender nodes Office Visit 08/07/2018 8:00a [facility] Angela G47.33 Obstructive sleep [facility] Amy apnea (adult) Paradichlorobenzene Tender (pediatric) R53.83 Other fatigue Assessments Date Code Description Provider 01/19/2019 R06.00 Dyspnea, unspecified Meghan Carlisle, N.P. 01/19/2019 I48.2 Chronic atrial fibrillation Meghan Carlisle N.P. 01/19/2019 I42.9 Cardiomyopathy, unspecified Meghan Carlisle, N.P. 01/19/2019 Z95.0 Presence of cardiac pacemaker Meghan Carlisle N.P. 01/19/2019 I35.0 Nonrheumatic aortic (valve) stenosis Meghan Carlisle N.P. 01/19/2019 I10 Essential (primary) hypertension Meghan Carlisle, N.P. 01/19/2019 I25.10 Atherosclerotic heart disease of Meghan Carlisle, N.P. [place] coronary artery with 01/15/2019 R06.00 Dyspnea, unspecified [...] Atherosclerotic heart disease of Joce Cain M.D. [place] coronary artery with 12/10/2018 R06.00 Dyspnea Joce [...] 10/08/2018 I25.10 Atherosclerotic heart disease of Meghan Carlisle N.P. [place] coronary artery with 10/08/2018 I35.0 Nonrheumatic aortic (valve) stenosis Meghan Carlisle N.P. 09/01/2018 I10 Essential (primary) hypertension Joce Cain M.D. 08/31/2018 R59.0 Localized enlarged lymph nodes Angela Reyes MD 08/31/2018 G47.33 Obstructive sleep apnea (adult) Angela Reyes MD (pediatric) 08/26/2018 R91.8 Other nonspecific abnormal finding of Angela Reyes MD lung field 08/26/2018 R59.0 Localized enlarged lymph nodes Angela Reyes MD 08/24/2018 R59.0 Localized enlarged lymph nodes Angela Reyes MD 08/07/2018 G47.33 Obstructive sleep apnea (adult) Angela Reyes MD (pediatric) 08/07/2018 R53.83 Other fatigue Angela Reyes MD Plan of Treatment Future Appointment(s):02/16/2019 3:00 pm - Meghan Carlisle N.PJailyn at [facility] [place]01/19/2019 - Meghan Carlisle N.PJailynR06.00 Dyspnea, nchjjfivlbwI74.2 Chronic atrial utoijbpvelgfJ09.9 Cardiomyopathy, unspecifiedFollow up:2-3 weeks OV [facility] 06/2019 JFMRecommendations:You are 14 lbs up. Blood pressure is low. Decrease metoprolol to 1/2 (25mg) tab daily Increase Lasixto 20mg daily. Continue to check weights at home and call is weight/swelling is not improving.Z95.0 Presence of cardiac nunkxmvsuU36.0 Nonrheumatic aortic (valve) stenosisReferral:Chacorta Gómez MD, Interventional [id number] Essential (primary) kmhwlgubshiwV92.10 Atherosclerotic heart disease of [place] coronary artery withRecommendations: Restart ASA baby 81mg Functional Status Description No Information Available Mental Status Description No Information Available Referrals Refer to Dr Reason for Referral Status Appt Date Chacorta Gómez MD aortic stenosis Sent [address] [place] [address] [phone]
--- NOTE | 2019-03-07 13:13 | ED ---
HPI Febrile Illness - HPI Summary HPI Summary: 68-year-old male presents with fever today. He states his fever was 101 at home. He is a patient of Dr. Whitmore for multiple myeloma and gets chemotherapy every 3 weeks. He states he is due for chemotherapy this week. He denies any other symptoms. Denies any chest pain. States he has chronic shortness breath that is unchanged. No cough. States he did have some abdominal pain from constipation but had a bowel movement on his way here and is now feeling better. He denies any nausea and vomiting. No headache. No sinus congestion or sore throat. No urinary symptoms. No one around him is sick. He is chronically on 2 L of oxygen. No new rashes. - History of Current Complaint Chief Complaint: EDFever Time Seen by Provider: 03/07/19 12:58 Pain Intensity: 0 - Additional Pertinent History Primary Care Physician: [id number] - Allergy/Home Medications Allergies/Adverse Reactions: Allergies Allergy/AdvReac Type Severity Reaction Status Date / Time ibuprofen Allergy GI Upset Verified 03/07/19 13:13 pregabalin Allergy Swelling Verified 03/07/19 13:13 PMH/Surg Hx/FS Hx/Imm Hx Endocrine/Hematology History: Reports: Hx Anticoagulant Therapy, Hx Bone Marrow Disease - MULTIPLE MYELOMA, Hx Diabetes, Hx Anemia - HX OF WITH TRANSFUSIONS IN 06/2013, Other Endocrine/Hematological Disorders - multiple myeloma Denies: Hx Thyroid Disease Cardiovascular History: Reports: Hx Cardiomegaly, Hx Congestive Heart Failure, Hx Coronary Artery Disease, Hx Hypercholesterolemia, Hx Hypertension - on meds, Hx Pacemaker/ICD - 2014, Hx Syncope, Hx Valvular Heart Disease, Other Cardiovascular Problems/Disorders - AV flaco ablation 03/2018, Watchman 06/2018 Denies: Hx Peripheral Vascular Disease Respiratory History: Reports: Hx Asthma - HAS PRN INHALERS, Hx Chronic Obstructive Pulmonary Disease (COPD) - 0-2 liters O2 at home, Hx Pulmonary Edema , Hx Pulmonary Embolism - 2016, 2018, Hx Sleep Apnea - NO CPAP, Other Respiratory Problems/Disorders - History of pneumonia 2014-Respiratory Failure- intubated GI History: Reports: Hx Gastroesophageal Reflux Disease, Hx Hiatal Hernia - Surgery 2017, Hx Ulcer, Other GI Disorders - GI BLEED 2013, HX of Gastric Polyp History: Reports: Hx Kidney Infection - Denies: Hx Dialysis, Hx Renal Disease, Other Problems/Disorders Musculoskeletal History: Reports: Hx Arthritis, Hx Back Problems, Hx Bursitis - Shoulder, Hx Orthopedic Injury - pelvic fracture 01/2014, Other Musculoskeletal History - Multiple pelvis fractures, Left total hip replacement 2014,UMBILICAL HERNIA Sensory History: Reports: Hx Cataracts - repaired, Hx Glaucoma Denies: Hx Contacts or Glasses, Hx Deafness, Hx Hearing Aid Opthamlomology History: Reports: Hx Cataracts - repaired, Hx Glaucoma Denies: Hx Contacts or Glasses Neurological History: Reports: Hx Nerve Disease - Bilateral Neuropathy knees down to feet, Other Neuro Impairments/Disorders - Syncope 2013 Denies: Hx Headaches, Hx Seizures, Hx Transient Ischemic Attacks (TIA) Psychiatric History: Reports: Hx Anxiety - Panic attacks, Hx Depression Denies: Hx Panic Disorder - Cancer History Cancer Type, Location and Year: multiple myeloma Hx Chemotherapy: Yes - 08/24/18 Hx Radiation Therapy: No Hx Palliative Cancer Treatment: No - Surgical History Surgery Procedure, Year, and Place: PACEMAKER 2014,. LEFT HIP REPLACEMENT 2014. BILATERAL CATARACTS 2015. CARDIAC ABLATION 03/26/18-[place]. UMBILICAL HERNIA REPAIR-[facility] Hx Anesthesia Reactions: No - Immunization History Date of Tetanus Vaccine: PT STATES UNSURE Date of Influenza Vaccine: PT STATES UNSURE Infectious Disease History: No Infectious Disease History: Reports: Hx of Known/Suspected MRSA - NOSE Denies: Hx Clostridium Difficile, Hx Hepatitis, Hx Human Immunodeficiency Virus (HIV), Hx Shingles, Hx Tuberculosis, History Other Infectious Disease, Traveled Outside the [place] in Last 30 Days - Family History Known Family History: Positive: Other - mother had circulation problems, father had angina. - Social History Alcohol Use: None Hx Substance Use: No Substance Use Type: Reports: None Hx Tobacco Use: Yes Smoking Status (MU): Former Smoker Type: Cigarettes Amount Used/How Often: 1/2 PPD OFF AND ON Length of Time of Smoking/Using Tobacco: 20 years Have You Smoked in the Last Year: No Review of Systems Positive: Fever Negative: Chest Pain Negative: Shortness Of Breath Negative: Abdominal Pain All Other Systems Reviewed And Are Negative: Yes Physical Exam Triage Information Reviewed: Yes Vital Signs On Initial Exam: Initial Vitals Temp Pulse Resp BP Pulse Ox 98.9 F 83 16 150/72 99 03/07/19 12:15 03/07/19 12:15 03/07/19 12:15 03/07/19 12:15 10/27/19 12:15 Vital Signs Reviewed: Yes Appearance: Positive: Well-Appearing Skin: Positive: Warm, Dry Head/Face: Positive: Normal Head/Face Inspection Eyes: Positive: Normal, Conjunctiva Clear ENT: Positive: Pharynx normal Respiratory/Lung Sounds: Positive: Clear to Auscultation, Breath Sounds Present Cardiovascular: Positive: Normal, RRR Abdomen Description: Positive: Nontender, Soft Bowel Sounds: Positive: Present Musculoskeletal: Positive: Normal Neurological: Positive: Normal Psychiatric: Positive: Normal Procedures - Sedation Patient Received Moderate/Deep Sedation with Procedure: No Diagnostics - Vital Signs Vital Signs Temp Pulse Resp BP Pulse Ox 03/07/19 12:15 98.9 F 83 16 150/72 99 - Laboratory Result Diagrams: 03/07/19 13:17 03/07/19 13:17 Lab Statement: Any lab studies that have been ordered have been reviewed, and results considered in the medical decision making process. - Radiology chest Radiology Interpretation Completed By: Radiologist Summary of Radiographic Findings: IMPRESSION: PULMONARY INTERSTITIAL EDEMA. Re-Evaluation - Re-Evaluation First Eval Re-Evaluation Time: 15:33 Comment: discussed results Course/Dx - Course Course Of Treatment: 68-year-old male presents with fever today. He states his fever was 101 at home. He is a patient of Dr. Whitmore for multiple myeloma and gets chemotherapy every 3 weeks. He states he is due for chemotherapy this week. He denies any other symptoms. Denies any chest pain. States he has chronic shortness breath that is unchanged. No cough. States he did have some abdominal pain from constipation but had a bowel movement on his way here and is now feeling better. He denies any nausea and vomiting. No headache. No sinus congestion or sore throat. No urinary symptoms. No one around him is sick. He is chronically on 2 L of oxygen. No new rashes. On exam lungs clear to auscultation. Abdomen soft nontender. wbc normal. crp elevated. chest xray shows intersistial edema. spoke with le Alan that finding no source of infection and she said to place on antibiotics for 7 days since gets recurrent resp issues. will place on augmetin for 7 days. urine no infection. told follow up with oncology. patient understand and agrees with plan. - Febrile Illness Differential Diagnoses: Pneumonia, Sepsis, Viremia - Diagnoses Provider Diagnoses: Fever Discharge ED - Sign-Out/Discharge Documenting (check all that apply): Patient Departure - Discharge Plan Condition: Good Disposition: HOME Prescriptions: Amoxicillin/Clavulanate TAB* [Augmentin TAB 500 mg*] 500 mg PO BID #13 tab Referrals: Marcin Watt MD [Primary Care Provider] - Additional Instructions: take augmentin twice a day for 7 days follow up with oncology Return to ED if develop any new or worsening symptoms - Billing Disposition and Condition Condition: GOOD Disposition: Home
[2019-03-07 13:32] LABS: Hematocrit 33 % (42-52); Hemoglobin 10.5 g/dL (14.0-18.0); Mean Corpuscular HGB Conc 32 g/dL (31-36); Mean Corpuscular Hemoglobin 25 pg (27-31); Mean Corpuscular Volume 79 fL (80-94); Mean Platelet Volume 8.8 fL (7.4-10.4); Platelet Count 77 10^3/uL (150-450); Red Blood Count 4.14 10^6 /uL (4.18-5.48); Red Cell Distribution Width 18 % (10-15); White Blood Count 5.4 10^3/uL (3.5-10.8)
[2019-03-07 13:40] LABS: Activated Partial Thrombo Time 39.1 seconds (26.0-38.0); INR 1.91 (0.82-1.09)
[2019-03-07 13:49] LABS: Albumin 3.4 g/dL (3.2-5.2); Albumin/Globulin Ratio 1.7 (1-3); BUN/Creatinine Ratio 20.8 (8-20); C Reactive Protein 97.97 mg/L (<8.01); Calcium 8.5 mg/dL (8.6-10.3); EGFR Non-African American 77.7 (>60); Potassium 3.4 mmol/L (3.5-5.0); Total Protein 5.4 g/dL (6.4-8.9)
[2019-03-07 13:53] LABS: ABS Lymphocytes 0.9 10^3/ul (1.0-4.8); ABS Monocytes 0.6 10^3/ul (0-0.8); ABS Neutrophils 3.8 10^3/ul (1.5-7.7); Eosinophil % 0.4 %; Lymphocyte % 17.2 %; Nucleated Red Blood Cells % 0.1
[2019-03-07 14:22] LABS: Influenza A Molecular NEGATIVE (Negative); Influenza B Molecular NEGATIVE (Negative)
[2019-03-07 15:04] LABS: Urine Appearance Clear; Urine Bilirubin Negative (Negative); Urine Blood Negative (Negative); Urine Color Amber; Urine Glucose Negative (Negative); Urine Ketones Negative (Negative); Urine Nitrite Negative (Negative); Urine Protein Negative (Negative); Urine Specific Gravity 1.024 (1.010-1.030); Urine Urobilinogen Negative (Negative)
[2019-03-07] MEDS ORDERED: Amoxicillin/Clavulanate TAB* 500 MG PO ONE (15:21)
[2019-03-07 16:01] VITALS: BP 140/68
== END 2019-03-07 15:25 | disposition home or self-care (01) ==
LOC: ED 12:13
DX: R50.9 Fever, unspecified (principal); C90.00 Multiple myeloma not having achieved remission; E11.9 Type 2 diabetes mellitus without complications; I11.0 Hypertensive heart disease with heart failure; I50.9 Heart failure, unspecified; I25.10 Atherosclerotic heart disease of native coronary artery without angina pectoris; E78.00 Pure hypercholesterolemia, unspecified; J44.9 Chronic obstructive pulmonary disease, unspecified; K21.9 Gastro-esophageal reflux disease without esophagitis; F41.9 Anxiety disorder, unspecified; Z96.642 Presence of left artificial hip joint; Z87.891 Personal history of nicotine dependence; Z99.81 Dependence on supplemental oxygen; Z79.4 Long term (current) use of insulin; Z79.899 Other long term (current) drug therapy
CPT/HCPCS: 36415; 71046; 80053; 81003; 83605; 85025; 85610; 85730; 86140; 87040; 99283; A9270-GY

== ENCOUNTER → 2019-03-11 | Day surgery (SDC) | payer MEDICARE, OTHER ==
[~2019-03-11] MED LIST changes: -Acetaminophen TAB* 325 MG PO PRN; -Benzocaine/Butamben/Tetracain (CETACAINE - SINGLE USE) 5 gm TOPICAL ONE; -DiMENhydriNATE IV* 50 MG/ML VIAL IV PUSH PRN; -Famotidine IV* 10 MG/ML 2 ML (20 mg) ONE; +Heparin 2 UNITS/ML IVPREMIX* 3,000 ML IV ONE; +Heparin(*) 1000 UNIT/ML 10 ML VIAL CATH LAB IV ONE; +Iohexol 350 (CONTRAST) 200 ML MDV IV ONE; +Lidocaine 1% INJ* 10 MG/ML 30 ML SDV ONE; -Lidocaine 2% PF * 5 ML VIAL ONE; -Midazolam* 1 MG/ML 2 ML VIAL (2 MG) ONE; +Midazolam* 1 MG/ML 5 ML VIAL (5 MG) ONE; +NS 0.9% 1000 ML** 1,000 ML IV SCH; -Naloxone* 0.4 MG/ML 1 ML VIAL IV PRN; -Ondansetron INJ* 2 MG/ML VIAL IV PRN; -Ondansetron INJ* 2 MG/ML VIAL ONE; -Phenylephrine 40 MCG/ML SYRINGE ONE; -Propofol* 10 MG/ML 20 ML BTL ONE; -Succinylcholine* 20 MG/ML 10 ML VIAL ONE; +VERAPAMIL 2.5 MG/ML 2 ML VIAL ** 5 mg/2 ml ONE; -fentaNYL* 50 MCG/ML 2 ML VIAL (100 MCG VIAL) IV PRN; +nitroGLYCERIN DRIP* 25,000 MCG/250 ML BTL ONE
--- NOTE | 2019-03-11 13:19 | CATH ---
CC: Dr. Watt; Dr. Gómez; Dr. Cain; Dr. Whitmore CATH REPORT: DATE OF PROCEDURE: 03/11/19 PRIMARY CARE PHYSICIAN: Dr. Watt. CARDIOLOGISTS: Dr. Gómez and Dr. Cain. ONCOLOGIST: Dr. Whitmore. PROCEDURE: Right radial artery access with ultrasound, unsuccessful due to inability to advance the wire. Hence, converted to femoral approach. ACCESS: Right common femoral artery. SHEATH: 5-[place]. HISTORY: A 68-year-old male with multiple comorbidities, prior stenting of the LAD and circumflex, l ongstanding myeloma apparently in remission, referred for pre-TAVR coronary angiography. MEDICATIONS: 1. Subcu lidocaine. 2. IV Versed. 3. IV fentanyl. DIAGNOSTIC CATHETERS: 5FL 3.5, 5FR 4. HEMODYNAMICS: AO 169/84, final BP 165/91. DESCRIPTION OF PROCEDURE: The right radial artery was evaluated with ultrasound, was small but adequ ate in size, I was able to advance micropuncture needle into the radial artery with blood return, but was not able to advance a wire. He has had 2 previous radial caths, on ultrasound there was a fair amount of intimal calcification and probably plaque. Manual pressure was held for right radial hemos tasis. The right groin was then approached with placement of a 5-[place] sheath. Diagnostic coronary angiography was performed. ANGIOGRAPHY: RFA: Sheath entry is in segment 2, there is no stenosis. Left main: The left main is short, has no stenosis. Incidentally noted is a dual pacing system as w ell as a left atrial Watchman device. LAD: The LAD is heavily calcified, large, there is a previously placed proximal LAD stent which has minimal luminal irregularity without significant stenosis. There is a small to moderate first diagona l rising before the stented segment which has 90% ostial stenosis, the entry point is not clearly def ined. Distal LAD has scattered luminal irregularity, but no significant stenosis. Circumflex: The circumflex is large, not dominant, has scattered luminal irregularity, previously pl aced proximal stent which has no stenosis or restenosis. RCA: The RCA is large, with scattered luminal irregularity with less than 30% stenosis, it is also c alcified. It supplies a small caliber PDA and 2 small posterolaterals. The RCA has no significant s tenosis. CONCLUSION: 1. No restenosis of prior stents. 2. One-vessel disease with ostial high-grade stenosis of a moderate diagonal branch. It is unclear whether this was present at prior caths performed elsewhere. 3. Unsuccessful right radial artery access with ultrasound assistance due to inability to advance a wire. 4. Successful right common femoral access, with Angio-Seal hemostatic closure. 5. Hypertension. [id number]/[facility] #: [id number]
[2019-03-11 13:51] VITALS: BP 130/80
== END | disposition home or self-care (01) ==
LOC: CHICATH 08:44
PROVIDERS: ATTEND Internal Medicine Cardiovascular Disease
DX: I08.0 Rheumatic disorders of both mitral and aortic valves (principal); I25.10 Atherosclerotic heart disease of native coronary artery without angina pectoris; Z95.5 Presence of coronary angioplasty implant and graft; Z85.79 Personal history of other malignant neoplasms of lymphoid, hematopoietic and related tissues; Z87.891 Personal history of nicotine dependence; I42.9 Cardiomyopathy, unspecified; J44.9 Chronic obstructive pulmonary disease, unspecified; Z99.81 Dependence on supplemental oxygen; E11.9 Type 2 diabetes mellitus without complications; I12.9 Hypertensive chronic kidney disease with stage 1 through stage 4 chronic kidney disease, or unspecified chronic kidney disease; Z79.4 Long term (current) use of insulin; N18.3 Chronic kidney disease, stage 3 (moderate)
CPT/HCPCS: 93454; 99156; 99157; C1760; J1644; J2250; J3010

== ENCOUNTER 2019-07-25 20:56 | Emergency (ER) | payer MEDICARE, OTHER ==
--- NOTE | 2019-07-25 21:21 | ED ---
Complex/Multi-Sys Presentation - HPI Summary HPI Summary: Patient presents to the ED for recurrent episodes of hypoglycemia, recurrent falls, chronic pain. Patient has history of multiple myeloma with chronic pain followed by Dr. Whitmore. Patient has history of DM 2, currently taking insulin and metformin. Caregiver states patient has not had insulin since yesterday. Caregiver also states patient does not eat very much, just lies in bed in pain. Caregiver and patient state patient has fallen out of bed twice since yesterday. Bed is 18 inches high as measured by patient. Patient denies any injuries from falls out of bed. Patient has multiple bruises and abrasions, but is unable to say where he originated. Patient presented in a diaper that appeared not to have been changed for several days. Patient is alert and oriented, and complaining of chronic left leg pain. Denies fever, cough, sore throat, CP, SOB, N//D, abdominal pain, change in urine, change in BM. Medical history is CAD, A. fib, HTN, CHF, HLD, COPD, pacemaker, CKD, DM 2, anemia. - History Of Current Complaint Chief Complaint: EDFall Time Seen by Provider: 07/25/19 21:11 Hx Obtained From: Patient, Family/Ingot Weigher Onset/Duration: Gradual Onset, Lasting Days Severity Currently: Severe Severity Initially: Severe Character: Sharp, Throbbing Associated Signs And Symptoms: Positive: Decreased Oral Intake, Recent Trauma - Allergies/Home Medications Allergies/Adverse Reactions: Allergies Allergy/AdvReac Type Severity Reaction Status Date / Time ibuprofen Allergy GI Upset Verified 07/25/19 21:04 pregabalin Allergy Swelling Verified 07/25/19 21:04 Home Medications: Home Medications Docusate CAP* [Colace Cap*] 100 mg PO BID PRN 03/08/14 [History Confirmed ] Gabapentin CAP(*) [Neurontin 300 CAP(*)] 300 mg PO BEDTIME 01/25/17 [History Confirmed 07/25/19] Furosemide TAB* [Lasix TAB*] 40 mg PO QAM 10/23/17 [History Confirmed 07/25/19] Calcium Carbonate [Calcium] 500 mg PO QAM 01/19/18 [History Confirmed 07/25/19] Cholecalciferol (Vitamin D3) [Vitamin D3] 2,000 unit PO QAM 01/19/18 [History Confirmed 07/25/19] Cyanocobalamin TAB* [Vitamin B12 TAB*] 1,000 mcg PO QAM 01/19/18 [History Confirmed 07/25/19] Pantoprazole TAB * [Protonix TAB*] 40 mg PO QAM 01/19/18 [History Confirmed ] glipiZIDE TAB.XL* [Glucotrol Xl*] 5 mg PO DAILY 01/19/18 [History Confirmed ] Atorvastatin* [Lipitor 10 MG*] 10 mg PO BEDTIME 08/25/18 [History Confirmed ] Cholecalciferol (Vitamin D3) [Vitamin D3] 1,000 unit PO BEDTIME 08/25/18 [ History Confirmed 07/25/19] DULoxetine DR CAP* [Cymbalta CAP*] 60 mg PO QAM 08/25/18 [History Confirmed ] Metoprolol Succinate 12.5 mg PO QAM 08/25/18 [History Confirmed 07/25/19] Tamsulosin CAP* [Flomax CAP*] 0.4 mg PO QAM 08/25/18 [History Confirmed 07/25/19 ] Insulin Glargine,Hum.rec.anlog [Lantus Solostar 100 units/ml 3 ml x 5 PENS] 30 units SUBCUT BEDTIME 08/31/18 [History Confirmed 07/25/19] Albuterol Sulfate [Albuterol Sulfate Hfa] 2 puff IH Q4HR PRN 09/07/18 [History Confirmed 07/25/19] Morphine TAB (NF) [Morphine 30 MG TAB (NF)] 30 mg PO BID 09/07/18 [History Confirmed 07/25/19] Oxycodone TAB(NF) [Oxycodone HCl 10 MG] 10 mg PO Q12H MDD 6 10/28/18 [History Confirmed 07/25/19] Apixaban* [Eliquis*] 5 mg PO BID #74 tab 11/06/18 [Rx Confirmed 07/25/19] Aspirin EC TAB* [Ecotrin EC Low Dose 81 MG*] 81 mg PO DAILY 03/10/19 [History Confirmed 07/25/19] Mometasone/Formoter 100/5 MDI* [Dulera 100/5 MDI*] 2 puff INH BID PRN 03/11/19 [ History Confirmed 07/25/19] Magnesium Oxide [Magnesium] 400 mg PO TID 07/25/19 [History Confirmed 07/25/19] Metformin HCl 1,000 mg PO BID 07/25/19 [History Confirmed 07/25/19] Potassium Chloride 20 meq PO SEE INSTRUCTIONS 07/25/19 [History Confirmed ] dilTIAZem HCL [Tiadylt ER] 120 mg PO DAILY 07/25/19 [History Confirmed 07/25/19] PMH/Surg Hx/FS Hx/Imm Hx Endocrine/Hematology History: Reports: Hx Anticoagulant Therapy, Hx Bone Marrow Disease - MULTIPLE MYELOMA, Hx Diabetes, Hx Anemia - HX OF WITH TRANSFUSIONS IN 06/2013, Other Endocrine/Hematological Disorders - multiple myeloma Denies: Hx Thyroid Disease Cardiovascular History: Reports: Hx Cardiomegaly, Hx Congestive Heart Failure, Hx Coronary Artery Disease, Hx Hypercholesterolemia, Hx Hypertension - on meds, Hx Myocardial Infarction, Hx Pacemaker/ICD - 2014, Hx Syncope, Hx Valvular Heart Disease, Other Cardiovascular Problems/Disorders - ABLASION, VALVE REPLACED 04/2019 DIABETIC Denies: Hx Angina, Hx Peripheral Vascular Disease Respiratory History: Reports: Hx Asthma - HAS PRN INHALERS, Hx Chronic Obstructive Pulmonary Disease (COPD) - 0-2 liters O2 at home, Hx Pulmonary Edema , Hx Pulmonary Embolism - 2016, 2018, Hx Sleep Apnea - NO CPAP, Other Respiratory Problems/Disorders - History of pneumonia 2014-Respiratory Failure- intubated GI History: Reports: Hx Gastroesophageal Reflux Disease, Hx Hiatal Hernia - Surgery 2017, Hx Ulcer, Other GI Disorders - GI BLEED 2013, HX of Gastric Polyp History: Reports: Hx Kidney Infection - Denies: Hx Dialysis, Hx Renal Disease, Other Problems/Disorders Musculoskeletal History: Reports: Hx Arthritis, Hx Back Problems, Hx Bursitis - Shoulder, Hx Orthopedic Injury - pelvic fracture 01/2014, Other Musculoskeletal History - Multiple pelvis fractures, Left total hip replacement 2014,UMBILICAL HERNIA Sensory History: Reports: Hx Cataracts - repaired, Hx Glaucoma Denies: Hx Contacts or Glasses, Hx Deafness, Hx Hearing Aid Opthamlomology History: Reports: Hx Cataracts - repaired, Hx Glaucoma Denies: Hx Contacts or Glasses Neurological History: Reports: Hx Nerve Disease - Bilateral Neuropathy knees down to feet, Other Neuro Impairments/Disorders - Syncope 2013 Denies: Hx Headaches, Hx Seizures, Hx Transient Ischemic Attacks (TIA) Psychiatric History: Reports: Hx Anxiety - Panic attacks, Hx Depression Denies: Hx Panic Disorder - Cancer History Cancer Type, Location and Year: multiple myeloma Hx Chemotherapy: Yes - 08/24/18 Hx Radiation Therapy: No Hx Palliative Cancer Treatment: No - Surgical History Surgery Procedure, Year, and Place: PACEMAKER 2014,. LEFT HIP REPLACEMENT 2014. BILATERAL CATARACTS 2015. CARDIAC ABLATION 03/26/18-[place]. UMBILICAL HERNIA REPAIR-[facility] Hx Anesthesia Reactions: No - Immunization History Date of Tetanus Vaccine: unk Date of Influenza Vaccine: fall 2018 Infectious Disease History: Yes Infectious Disease History: Reports: Hx of Known/Suspected MRSA - NOSE Denies: Hx Clostridium Difficile, Hx Hepatitis, Hx Human Immunodeficiency Virus (HIV), Hx Shingles, Hx Tuberculosis, History Other Infectious Disease, Traveled Outside the [place] in Last 30 Days - Family History Known Family History: Positive: Other - mother had circulation problems, father had angina. - Social History Alcohol Use: None Hx Substance Use: No Substance Use Type: Reports: None Hx Tobacco Use: Yes Smoking Status (MU): Former Smoker Type: Cigarettes Amount Used/How Often: 1/2 PPD OFF AND ON Length of Time of Smoking/Using Tobacco: 20 years Have You Smoked in the Last Year: No Review of Systems Constitutional: Negative Eyes: Negative ENT: Negative Cardiovascular: Negative Respiratory: Negative Gastrointestinal: Negative Genitourinary: Negative Musculoskeletal: Other Positive: Bruising Neurological/Mental Status: Negative Psychological: Normal All Other Systems Reviewed And Are Negative: Yes Physical Exam - Summary Physical Exam Summary: No evidence of erythema, ecchymosis, deformity, swelling noted to left thigh or left hip. Multiple bruises and abrasions along bilateral legs. Patient is bilateral lower extremities. Pain appears to be intermittent in left thigh, more like a spasm. PMS intact distally bilateral lower extremities. No pain with palpation of back. Abdomen soft nontender. Triage Information Reviewed: Yes Vital Signs On Initial Exam: Initial Vitals Temp Pulse Resp BP Pulse Ox 97.2 F 78 24 136/69 99 07/25/19 21:01 07/25/19 21:01 07/25/19 21:01 07/25/19 21:01 07/25/19 21:01 Vital Signs Reviewed: Yes Appearance: Positive: Well-Appearing Skin: Positive: Warm Head/Face: Positive: Normal Head/Face Inspection Eyes: Positive: Normal Neck: Positive: Supple Respiratory/Lung Sounds: Positive: Clear to Auscultation Cardiovascular: Positive: Normal Abdomen Description: Positive: Nontender Musculoskeletal: Positive: Normal Neurological: Positive: Normal Psychiatric: Positive: Normal AVPU Assessment: Alert - [place] Coma Scale Best Eye Response: 4 - Spontaneous Best Motor Response: 6 - Obeys Commands Best Verbal Response: 5 - Oriented Coma Scale Total: 15 Procedures - Sedation Patient Received Moderate/Deep Sedation with Procedure: No Diagnostics - Vital Signs Vital Signs Temp Pulse Resp BP Pulse Ox 07/25/19 21:01 97.2 F 78 24 136/69 99 - Laboratory Result Diagrams: 07/25/19 22:12 07/25/19 22:12 Lab Statement: Any lab studies that have been ordered have been reviewed, and results considered in the medical decision making process. Complex Multi-Symp Course/Dx Course Of Treatment: Patient presents to the ED for recurrent episodes of hypoglycemia, recurrent falls, chronic pain. Patient has history of multiple myeloma with chronic pain followed by Dr. Whitmore. Patient has history of DM 2, currently taking insulin and metformin. Caregiver states patient has not had insulin since yesterday. Caregiver also states patient does not eat very much, just lies in bed in pain. Caregiver and patient state patient has fallen out of bed twice since yesterday. Bed is 18 inches high as measured by patient. Patient denies any injuries from falls out of bed. Patient has multiple bruises and abrasions, but is unable to say where he originated. Patient presented in a diaper that appeared not to have been changed for several days. Patient is alert and oriented, and complaining of chronic left leg pain. Denies fever, cough, sore throat, CP, SOB, N//D, abdominal pain, change in urine , change in BM. Medical history is CAD, A. fib, HTN, CHF, HLD, COPD, pacemaker , CKD, DM 2, anemia. Vital signs within normal limits. Hemoglobin 10.1. BGL 36. CRP 75. Labs otherwise within normal limits. Urine negative. X-ray left hip and femur negative for fracture. Recurrent hypoglycemia here in the ED. Patient serum glucose elevated with feeding. CT lumbar spine positive for unstable L3 fracture with local epidural tumor likely causing fracture as well as causing severe narrowing of the thecal sac. Soft tissue tumor also in the right neural foramen. PET scan in May was negative. This is new onset tumor. Patient is currently neurovascularly intact in bilateral lower extremities. Recurrently hypoglycemic. Patient followed by a [facility] oncology Dr. Whitmore.No neurosurgery medical scientific liaison at this time at [facility]. Patient transferred to [facility]. Discussed patient with neurosurgery at [facility] Dr. Fulton who recommended transfer with spinal precautions from ER to ER.Accepted by attending ER physician Dr. Deutsch. - Diagnoses Provider Diagnoses: Failure to thrive, Hypoglycemia, Chronic pain, Recurrent falls, Multiple myeloma, L3 vertebral fracture, Neoplasm of lumbar vertebral column Discharge ED - Sign-Out/Discharge Documenting (check all that apply): Patient Departure - Discharge Plan Condition: Stable Disposition: TRANS HIGHER LVL OF CARE FAC Referrals: Marcin Watt MD [Primary Care Provider] - - Billing Disposition and Condition Condition: STABLE Disposition: Trans Higher Lvl of Care Fac
--- OUTSIDE RECORDS SUMMARY | 2019-07-25 21:28 | XMS REPORT | Continuity of Care Document ---
:1950 External Reference #:[id number] Author Name Ica Pacer Schedule (transmitted by agent of provider Juliane Butt) Address [address] [place] [address] Care Team Providers Name Role Phone Marcin Watt MD - Family Medicine Care Team Information Aids Social Worker Problems Active Problems Provider Date Atrial fibrillation Joce Cain M.D. Onset: 12/02/2013 Congestive heart failure Joce Cain M.D. Onset: 12/02/2013 Coronary arteriosclerosis Joce Cain M.D. Onset: 12/02/2013 Low blood pressure Joce Cain M.D. Onset: 12/02/2013 Syncope and collapse Joce Cain M.D. Onset: 02/10/2014 Localized, secondary osteoarthritis of Dameon Chavarria M.D. Onset: 10/19/2015 the pelvic region and thigh Prosthetic arthroplasty of the hip Dameon Chavarria M.D. Onset: 10/19/2015 Disorder of bursa of shoulder region Dameon Chavarria M.D. Onset: 01/24/2016 Multiple fractures of pelvis with Dameon Chavarria M.D. Onset: 02/12/2017 stable disruption of pelvic ring, subsequent encounter for fracture with routine healing Sciatica Dameon Chavarria M.D. Onset: 02/26/2017 Encounter for planned postprocedural Mitchel Rivas M.D., [facility], Onset: 2018 wound closure [facility] Replacement of aortic valve Joce Cain M.D. Onset: 05/13/2019 Social History Type Date Description Comments Sex Unknown Tobacco Use Start: Unknown Former Cigarette 4 years, a few times End: Smoker 1/2 Pack Daily Smoking Status Reviewed: 05/10/19 Former Cigarette 4 years, a few times [...] Medications SIG Qnty Indications Ordering Date Provider Magnesium 1 by mouth tid Joce Perry 05/25/2019 400mg Maureen Cain Tablets Atorvastatin Calcium 1 by mouth every day 90tabs Meghan Carlisle, 2018 N.P. 10mg Tablets Furosemide 1 by mouth prn Meghan Carlisle, 01/29/2019 40mg N.P. Tablets Aspirin 81 take 1 tab by mouth 90tabs Meghan Carlisle, 01/19/2019 [address]P. Tablets DR Elise 1 by mouth twice a Unknown 12/10/2018 5mg Tablets day Toprol XL 1/2 tab by mouth 45tabs Joce Perry 06/30/2018 25mg every day Maureen Cain Tablets ER 24HR Cardizem CD 1 by mouth every day 60caps Joce Perry 06/25/2018 120mg Maureen Cain Caps ER 24HR Potassium Chloride 1 by mouth every 90tabs Meghan Carlisle, 02/19/2018 Sangeetha ER friday N.P. 20Meq Tablets friday ER Amoxicillin 4 tablets 1 hour 12caps Dameon Chavarria, 03/09/2015 500mg before dental work M.DJailyn Capsules Gabapentin 1 by mouth at M54.41 Unknown 300mg bedtime Capsules Albuterol Sulfate Unknown HFA 108(90Base) mcg/Act Aerosol [...] by mouth every day Unknown 1000mcg Lozenges Calcium 1 by mouth every day Unknown 500mg Tablets Am Glipizide XL 1 by mouth every day 90tabs Unknown 5mg Tablets ER 24HR Pantoprazole Sodium 1 by mouth 1x day 90tabs Unknown 40mg Tablets DR Medications Administered in Office Medication SIG Qnty Indications Ordering Provider Date Depomedrol 40MG Dameon Chavarria M.D. 01/24/2016 Injection Immunizations Description No Information Available Vital Signs Date Vital Result Comment 05/25/2019 1:19pm Height 72 inches 6'0" Weight 253.25 lb w/ shoes Heart Rate 72 /min Apical BP Systolic 162 mmHg L arm, large cuff (after walk test) BP Diastolic 90 mmHg L arm, large cuff (after walk test) BP Systolic Standing 120 mmHg L arm, large cuff BP Diastolic Standing 60 mmHg L arm, large cuff Respiratory Rate 16 /min BMI (Body Mass Index) 34.3 kg/m2 05/10/2019 1:11pm Height 72 inches 6'0" Weight 252.00 lb with shoes Heart Rate 72 /min BP Systolic Sitting 134 mmHg Ra BP Diastolic Sitting 76 mmHg Ra BMI (Body Mass Index) 34.2 kg/m2 Ejection Fraction 55-60% Echo 01/15/19 Results Test Acquired Date Facility Test Result H/L Range Note Laboratory test 03/11/2019 [facility] Point of 165 mg/dL High 70-100 [address] [place] [address] [phone] CBC Auto Diff 03/03/2019 [facility] White Blood 6.1 10^3/uL Normal 3.5-10.[address] [place] [address] [phone] Red Blood Count 4.34 10^6/uL Normal 4.18-5.48 [...] Blood Cells % 0.0 Basic Metabolic 03/03/2019 [facility] Sodium 142 mmol/L Normal 135-[address] [place] [address] [phone] Potassium 4.0 mmol/L Normal 3.5-5.0 Chloride 104 mmol/L Normal 101-111 Co2 Carbon Dioxide 31 mmol/L Normal 22-32 Anion Gap 7 mmol/L Normal 2-11 Glucose 131 mg/dL High 70-100 Blood Urea Nitrogen 19 mg/dL Normal 6-24 Creatinine 0.98 mg/dL Normal 0.67-1.17 BUN/Creatinine Ratio 19.4 Normal 8-20 Calcium 9.0 mg/dL Normal 8.6-10.3 Egfr Non- 75.8 >60 Egfr 91.8 >60 2 Laboratory 01/27/2019 [facility] B-Type 161 pg/mL High <=100 test finding [address] [place] [address] Peptide BNP [phone] CBC Auto Diff 01/27/2019 [facility] White Blood 5.5 Normal 3.5 -10.[address] Count 10^3/[place] [address] [phone] Red Blood Count 4.34 10^6/uL Normal 4.18-5.48 [...] Blood Cells % 0.0 Comp Metabolic 01/27/2019 [facility] Sodium 142 mmol/L Normal 135-[address] [place] [address] [phone] Potassium 4.1 mmol/L Normal 3.5-5.0 Chloride 103 [...] Egfr Non- 84.8 >60 Egfr 102.6 >60 3 1 Pallet Rectifier: [id number] 2 Because ethnic data is not always [...] 5 Kidney failure <15 (or dialysis) 3 Because ethnic data is not always [...] 15-29 5 Kidney failure <15 (or dialysis) Procedures Date Code Description Status 05/25/2019 22495 EKG Tracing & Interpretation Completed 05/25/2019 98238 EKG Tracing & Interpretation Completed 05/24/2019 28292 ECHO Transthoracic, Real-Time 2D With Doppler And Color Completed Flow 05/24/2019 20148 ECHO Transthoracic, Real-Time 2D With Doppler And Color Completed Flow 03/11/2019 89081 Cath PLMT&NJX L Ventriculog Img S&I Completed 03/05/2019 70334 EKG Tracing & Interpretation Completed Medical Devices Description No Information Available Encounters Type Date Location Provider Dx Diagnosis Office Visit 05/10/2019 [facility] Joce Perry Z95.0 Presence of 1:40p Of César Cain M.D. cardiac pacemaker I42.9 Cardiomyopathy, unspecified I25.10 Athscl heart disease of [place] coronary artery w/o ang pctrs I35.0 Nonrheumatic aortic (valve) stenosis Office Visit 03/17/2019 3:40p [place] Mitchel Rivas, Z48.1 Encounter for Cardiology Of [place] Reddy, planned Exercise Teacher AT [facility] postprocedural wound closure Z48.812 Encntr for surgical aftcr following surgery on the circ sys Office Visit 03/05/2019 1:30p [facility] Meghan S. R06.00 Dyspnea, Of César Carlisle, N.P. unspecified I42.9 Cardiomyopathy, unspecified Z95.0 Presence of cardiac pacemaker I35.0 Nonrheumatic aortic (valve) stenosis I10 Essential (primary) hypertension I25.10 Athscl heart disease of [place] coronary artery w/o ang pctrs Office Visit 01/19/2019 1:30p [facility] Meghan S. R06.00 Dyspnea, Of [facility] Orestes, N.P. unspecified I48.2 Chronic atrial fibrillation I42.9 Cardiomyopathy, unspecified Z95.0 Presence of cardiac pacemaker I35.0 Nonrheumatic aortic (valve) stenosis I10 Essential (primary) hypertension I25.10 Athscl heart disease of [place] coronary artery w/o ang pctrs Assessments Date Code Description Provider 05/25/2019 Z95.2 Presence of prosthetic heart valve Joce Cian M.D. 05/25/2019 Z95.2 Presence of prosthetic heart valve Nurse Visit IC 05/25/2019 I48.91 Unspecified atrial fibrillation Joce Cain M.D. 05/25/2019 I48.91 Atrial fibrillation Nurse Visit IC 05/25/2019 Z95.0 Presence of cardiac pacemaker Joce Cain M.D. 05/25/2019 Z95.0 Presence of cardiac pacemaker Nurse Visit IC 05/25/2019 I10 Essential (primary) hypertension Joce Cain M.D. 05/25/2019 I10 Benign hypertension Nurse Visit IC 05/24/2019 Z95.2 Presence of prosthetic heart valve Joce Cain M.D. 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 05/24/2019 I05.0 Mitral valve stenosis Ica ECHO Schedule 05/24/2019 I48.91 Unspecified atrial fibrillation Joce Cain M.D. 05/24/2019 I48.91 Atrial fibrillation Ica ECHO Schedule 05/24/2019 I42.9 Cardiomyopathy, unspecified Joce Cain M.D. 05/24/2019 I42.9 Cardiomyopathy Ica ECHO Schedule 05/10/2019 Z95.0 Presence of cardiac pacemaker Joce Cain M.D. 05/10/2019 I42.9 Cardiomyopathy, callie Cain M.D. 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 [place] coronary artery with 05/10/2019 I35.0 Aortic valve stenosis Joce Cain M.D. 03/17/2019 Z48.1 Encounter for planned postprocedural Mitchel Rivas M.D., [facility], wound closure [facility] 03/17/2019 Z48.812 Encounter for surgical aftercare Mitchel Rivas M.D., [facility], following surgery on the circulatory [facility] system 03/11/2019 I25.10 Atherosclerotic heart disease of Bertha Chavarria MD, FACC, [place] coronary artery without angina [facility] pectoris 03/05/2019 Z95.0 Presence of cardiac pacemaker Joce Cain M.D. 03/05/2019 I42.9 Cardiomyopathy, unspecified Joce Cain M.D. 03/05/2019 R94.31 Abnormal electrocardiogram [ECG] [EKG] Joce Cain M.D. 03/05/2019 R06.00 Dyspnea, unspecified Meghan Carlisle, N.P. 03/05/2019 I25.10 Atherosclerotic heart disease of Joce Cain M.D. [place] coronary artery with 03/05/2019 I35.0 Nonrheumatic aortic (valve) stenosis Joce Cain M.D. 03/05/2019 I42.9 Cardiomyopathy, unspecified Megahn S. Orestes, N.P. 03/05/2019 Z95.0 Presence of cardiac pacemaker Meghan S. Orestes, N.P. 03/05/2019 I35.0 Nonrheumatic aortic (valve) stenosis Meghan S. Foster, N.P. 03/05/2019 I10 Essential (primary) hypertension Meghan S. Foster, N.P. 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 Orestes, N.P. [place] coronary artery with 01/19/2019 R06.00 Dyspnea, unspecified Meghan S. Foster, N.P. 01/19/2019 I48.2 Chronic atrial fibrillation Meghan S. Orestes, N.P. 01/19/2019 I42.9 Cardiomyopathy, unspecified Meghan S. Foster, N.P. 01/19/2019 Z95.0 Presence of cardiac pacemaker Meghan S. Orestes, N.P. 01/19/2019 I35.0 Nonrheumatic aortic (valve) stenosis Meghan S. Orestes, N.P. 01/19/2019 I10 Essential (primary) hypertension Meghan S. Foster, N.P. 01/19/2019 I25.10 Atherosclerotic heart disease of Meghan Carlisle, N.P. [place] coronary artery with Plan of Treatment Future Appointment(s):07/21/2019 2:00 pm - Traveling ECHO 1 at [facility]07/29/2019 3:40 pm - Joce Cain M.D. at [facility]05/25/2019 - Nurse Visit ICZ95.2 Presence of prosthetic heart ugoblB21.91 Unspecified atrial pvhfkimlnyjmI07.0 Presence of cardiac [id number] Essential (primary) hypertension Functional Status Description No Information Available Mental Status Description No Information Available Referrals Refer to Reason for Referral Status Appt Date [place], MD [place] aortic stenosis Sent [address] [place] [address] [phone]
--- OUTSIDE RECORDS SUMMARY | 2019-07-25 21:28 | XMS REPORT | Continuity of Care Document ---
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 Provider Date Atrial fibrillation [...] Encounter for planned postprocedural Mitchel Rivas M.D., [facility], Onset: 2018 wound closure [facility] Replacement [...] Result H/L Range Note Laboratory test 03/11/2019 [facility] Point of 165 mg/dL High 70-100 [address] [place] [address] [phone] CBC Auto Diff 03/03/2019 [facility] White Blood 6.1 10^3/uL Normal 3.5-10.[address] [place] [address] [phone] Red Blood Count 4.34 10^6/uL Normal 4.18-5.48 [...] Blood Cells % 0.0 Basic Metabolic 03/03/2019 [facility] Sodium 142 mmol/L Normal 135-[address] [place] [address] [phone] Potassium 4.0 mmol/L Normal 3.5-5.0 Chloride 104 mmol/L Normal 101-111 Co2 Carbon Dioxide 31 mmol/L Normal 22-32 Anion Gap 7 mmol/L Normal 2-11 Glucose 131 mg/dL High 70-100 Blood Urea Nitrogen 19 mg/dL Normal 6-24 Creatinine 0.98 mg/dL Normal 0.67-1.17 BUN/Creatinine Ratio 19.4 Normal 8-20 Calcium 9.0 mg/dL Normal 8.6-10.3 Egfr Non- 75.8 >60 Egfr 91.8 >60 2 Laboratory 01/27/2019 [facility] B-Type 161 pg/mL High <=100 test finding [address] [place] [address] Peptide BNP [phone] CBC Auto Diff 01/27/2019 [facility] White Blood 5.5 Normal 3.5 -10.[address] Count 10^3/[place] [address] [phone] Red Blood Count 4.34 10^6/uL Normal 4.18-5.48 [...] Blood Cells % 0.0 Comp Metabolic 01/27/2019 [facility] Sodium 142 mmol/L Normal 135-[address] [place] [address] [phone] Potassium 4.1 mmol/L Normal 3.5-5.0 Chloride 103 [...] 84.8 >60 Egfr 102.6 >60 3 1 Platform Stapler: [id number] 2 Because ethnic data is not always [...] (or dialysis) Procedures Date Code Description Status 07/21/2019 23367 ECHO Transthoracic, Real-Time 2D With Doppler And Color Completed Flow 07/16/2019 97383 Pace Maker Eval W/Iterative Adjment Dual Lead Completed 07/16/2019 70139 Pace Maker Eval W/Iterative Adjment Dual Lead Completed 05/25/2019 64103 EKG Tracing & Interpretation Completed 05/25/2019 76334 EKG Tracing & Interpretation Completed 05/24/2019 72813 ECHO Transthoracic, Real-Time 2D With Doppler And Color Completed Flow 05/24/2019 56059 ECHO Transthoracic, Real-Time 2D With Doppler And Color Completed Flow 03/11/2019 53796 Cath PLMT&NJX L Ventriculog Img S&I Completed 03/05/2019 15413 EKG Tracing & Interpretation Completed Medical Devices Description No Information Available Encounters Type Date Location Provider Dx Diagnosis Office Visit 05/10/2019 [facility] Joce Perry Z95.0 Presence of 1:40p Of César Cain M.D. cardiac pacemaker I42.9 Cardiomyopathy, unspecified I25.10 Athscl heart disease of [place] coronary artery w/o ang pctrs I35.0 Nonrheumatic aortic (valve) stenosis Office Visit 03/17/2019 3:40p [place] Mitchel Rivas Z48.1 Encounter for Cardiology Of MINE Reddy, planned Intellectual Property Manager AT [facility] postprocedural wound closure Z48.812 Encntr for surgical aftcr following surgery on the circ sys Office Visit 03/05/2019 1:30p [facility] Meghan Collins R06.00 Dyspnea, Of César Carlisle N.PJailyn unspecified I42.9 Cardiomyopathy, unspecified Z95.0 Presence of cardiac pacemaker I35.0 Nonrheumatic aortic (valve) stenosis I10 Essential (primary) hypertension I25.10 Athscl heart disease of [place] coronary artery w/o ang pctrs Assessments Date Code Description Provider 07/21/2019 I42.9 Cardiomyopathy, unspecified Traveling ECHO 1 07/16/2019 I48.91 Unspecified atrial fibrillation Joce Cain M.D. 07/16/2019 I48.91 Unspecified atrial fibrillation Ica Pacer Schedule 07/16/2019 Z95.0 Presence of cardiac pacemaker Joce Cain M.D. 07/16/2019 Z95.0 Presence of cardiac pacemaker Ica Pacer Schedule 07/16/2019 I42.9 Cardiomyopathy, unspecified Joce Cain M.D. 07/16/2019 I42.9 Cardiomyopathy, unspecified Ica Pacer Schedule 05/25/2019 Z95.2 Presence of prosthetic heart valve Joce Cain M.D. 05/25/2019 Z95.2 Presence of prosthetic heart [...] pacemaker Joce Cain M.D. 05/10/2019 I42.9 Cardiomyopathy, guichoified Joce Cain M.D. 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 [place] coronary artery with 05/10/2019 I35.0 Aortic valve stenosis Joce Cain M.D. 03/17/2019 Z48.1 Encounter for planned postprocedural Mitchel Rivas M.D., [facility], wound closure [facility] 03/17/2019 Z48.812 Encounter for surgical aftercare Mitchel Rivas M.D., [facility], following [facility] 03/11/2019 I25.10 Atherosclerotic heart disease of Bertha Chavarria MD, FACC, [place] coronary artery without angina [facility] pectoris 03/05/2019 Z95.0 Presence of cardiac pacemaker Joce Cain M.D. 03/05/2019 I42.9 Cardiomyopathy, unspecified Joce Cain M.D. 03/05/2019 R94.31 Abnormal electrocardiogram [ECG] Joce Cain M.D. [EKG] 03/05/2019 R06.00 Dyspnea, unspecified Meghan Carlisle, N.P. 03/05/2019 I25.10 Atherosclerotic heart disease of Joce Cain M.D. [place] coronary artery with 03/05/2019 I35.0 Nonrheumatic aortic (valve) stenosis Joce Cain M.D. 03/05/2019 I42.9 Cardiomyopathy, unspecified Meghan SJailyn Carlisle, N.P. 03/05/2019 Z95.0 Presence of cardiac pacemaker Meghan SJailyn Carlisle, N.P. 03/05/2019 I35.0 Nonrheumatic aortic (valve) stenosis Meghan SJailyn Carlisle, N.P. 03/05/2019 I10 Essential (primary) hypertension Meghan Carlisle, N.P. 03/05/2019 I25.10 Atherosclerotic heart disease of Meghan Carlisle, N.P. [place] coronary artery with Plan of Treatment Future Appointment(s):07/29/2019 3:40 pm - Joce Cain M.D. at [facility]05/25/2019 - Nurse Visit ICZ95.2 Presence of prosthetic heart ucwouD35.91 Unspecified atrial jfpgpibrwjryP30.0 Presence of cardiac [id number] Essential (primary) hypertension Functional Status Description No Information Available Mental Status Description No Information Available Referrals Description No Information Available
--- OUTSIDE RECORDS SUMMARY | 2019-07-25 21:28 | XMS REPORT | Continuity of Care Document ---
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 did quit before for 13 years Recreational Drug Use Never Used Drugs Smoking Status Reviewed: 06/08/19 Patient is a former quit 06/25/12 smoked smoker 10-12 cigarettes a day. did quit before for 13 years Allergies, Adverse Reactions, Alerts Active Allergies Reaction Severity Comments Date Lyrica swelling 02/01/2016 Ibuprofen ulcers 02/01/2016 Medications Active Medications SIG Qnty Indications Ordering Date Provider Tamsulosin HCL Take One Capsule Unknown 0.4mg Capsules By Mouth Every Day Metoprolol Succinate ER Take 1/2 Tablet Unknown 25mg By Mouth Every Tablets ER 24HR Day Eliquis Take One Tablet Unknown 5mg Tablets By Mouth Twice A Day Diltiazem HCL ER Coated Take One Capsule Unknown Beads By Mouth Every 120mg Caps ER 24HR Day Revlimid sig 1 by mouth Unknown 25mg Capsules every day x 21 days stop for 7 days then start over for 21 days Lisinopril 1 by mouth every Unknown 10mg Tablets day Amoxicillin 4 tablets 1 hour Unknown 500mg Tablets before dental work Metoprolol Tartrate 2 by mouth twice Unknown 25mg a day Tablets Hydrocodone-Acetaminophe 1 by mouth every Unknown n 4 to 6 hours as 5-325mg Tablets needed pain Aleve 1 by mouth every Unknown 220mg Tablets day as needed Prochlorperazine Maleate 1 tab by mouth Unknown 10mg every 6 hours as Tablets needed Lorazepam take 1 tablet Unknown 1mg Tablets once daily as needed for moderate to severe anxiety Valacyclovir HCL 1 by mouth every Unknown 1gm Tablets day prn Magnesium 4 by mouth every Unknown 250mg Tablets day Calcium every day Unknown 500mg Tablets Pantoprazole Sodium 1 by mouth every Unknown 40mg day Solution Rec Glipizide XL take one tablet Unknown 5mg Tablets ER by mouth once a 24HR day Clopidogrel Bisulfate 1 by mouth every Unknown 75mg day Tablets Amiodarone HCL 1 by mouth every Unknown 100mg Tablets day Aspirin Adult Low 1 by mouth every Unknown Strength day 81mg Tablets DR Metformin HCL 1 po qd Unknown 500mg Tablets Vitamin E 1 po qd Unknown 400Unit Capsules Atorvastatin Calcium 1 po qd 30tabs Unknown 10mg Tablets Immunizations Description No Information Available Vital Signs Date Vital Result Comment 04/05/2013 1:52pm BP Systolic Sitting Right Arm 142 mmHg BP Diastolic Sitting Right Arm 92 mmHg Heart Rate 90 /min Respiratory Rate 16 /min Height 74 inches 6'2" Weight 296.00 lb BMI (Body Mass Index) 38.0 kg/m2 BSA (Body Surface Area) 2.57 m2 Results Description No Information Available Procedures Description No Information Available Medical Devices Description No Information Available Encounters Description No Information Available Assessments Description No Information Available Plan of Treatment No Information Available Functional Status Functional Condition Comment Date Status Independent with all ADL's Active Glasses Active Mental Status Description No Information Available Referrals Description No Information Available
[2019-07-25 22:25] LABS: Hematocrit 31 % (42-52); Hemoglobin 10.1 g/dL (14.0-18.0); Mean Corpuscular HGB Conc 33 g/dL (31-36); Mean Corpuscular Hemoglobin 27 pg (27-31); Mean Corpuscular Volume 83 fL (80-94); Red Blood Count 3.71 10^6 /uL (4.18-5.48); Red Cell Distribution Width 19 % (10-15); White Blood Count 7.8 10^3/uL (3.5-10.8)
[2019-07-25 22:36] LABS: ALT 16 U/L (7-52); AST 35 U/L (13-39); Albumin 3.1 g/dL (3.2-5.2); Albumin/Globulin Ratio 1.7 (1-3); Alkaline Phosphatase 74 U/L (34-104); Anion Gap 6 mmol/L (2-11); BUN/Creatinine Ratio 33.7 (8-20); Blood Urea Nitrogen 32 mg/dL (6-24); C Reactive Protein 75.93 mg/L (<8.01); CO2 Carbon Dioxide 30 mmol/L (22-32); Calcium 8.8 mg/dL (8.6-10.3); Chloride 105 mmol/L (101-111); EGFR African American 94.8 (>60); EGFR Non-African American 78.4 (>60); Globulin 1.8 g/dL (2-4); Potassium 3.8 mmol/L (3.5-5.0); Sodium 141 mmol/L (135-145); Total Protein 4.9 g/dL (6.4-8.9)
[2019-07-25 22:38] LABS: Troponin I 0.02 ng/mL (<0.03)
[2019-07-25 22:39] LABS: ABS Eosinophils 0.1 10^3/ul (0-0.6); ABS Lymphocytes 0.8 10^3/ul (1.0-4.8); ABS Monocytes 0.8 10^3/ul (0-0.8); ABS Neutrophils 6.1 10^3/ul (1.5-7.7); ABS Nucleated RBC 0.1 10^3/ul; Eosinophil % 0.7 %; Lymphocyte % 10.3 %; Mean Platelet Volume 9.8 fL (7.4-10.4); Nucleated Red Blood Cells % 0.6; Platelet Count 46 10^3/uL (150-450)
[2019-07-25 22:41] LABS: Alcohol < 10 mg/dL (<10)
[2019-07-25 22:49] LABS: Glucose 36 mg/dL (70-100)
[2019-07-25] MEDS ORDERED: Morphine 4 MG/ML VIAL (1 ml) 4 MG/ML VIAL IV ONE (23:00)
[2019-07-25] MEDS ORDERED: Ondansetron INJ* 2 MG/ML VIAL IV ONE (23:00)
[2019-07-25 23:59] LABS: Urine Appearance Clear; Urine Bilirubin Negative (Negative); Urine Blood Negative (Negative); Urine Color Yellow; Urine Glucose Negative (Negative); Urine Ketones Negative (Negative); Urine Nitrite Negative (Negative); Urine Protein Negative (Negative); Urine Specific Gravity 1.019 (1.010-1.030); Urine Urobilinogen Negative (Negative)
[2019-07-26 00:19] LABS: Urine Benzodiazepine Screen None Detected (None Detect); Urine Opiates Screen Presumptive Positive (None Detect)
[2019-07-26] MEDS ORDERED: Acetaminophen TAB* 325 MG PO PRN (00:26)
[2019-07-26] MEDS ORDERED: Morphine 4 MG/ML VIAL (1 ml) 4 MG/ML VIAL IV ONE (00:26)
[2019-07-26] MEDS ORDERED: Albuterol HFA INHALER* 8 gm MDI INH PRN (01:04)
[2019-07-26] MEDS ORDERED: Docusate CAP* 100 MG PO PRN (01:04)
[2019-07-26] MEDS ORDERED: Mometasone/Formoter 100/5 MDI INH PRN (01:04)
[2019-07-26] MEDS ORDERED: oxyCODONE/Acetamin 5/325 MG* TAB PO PRN (01:09)
[2019-07-26 01:18] LABS: Troponin I 0.03 ng/mL (<0.03)
[2019-07-26] MEDS ORDERED: NS 0.9% 1000 ML** 1,000 ML IV SCH (01:30)
[2019-07-26] MEDS ORDERED: Morphine INJ* 4 MG/ML 1 ML SYRINGE (NEW SYRINGE VERSION) IV PRN ×2 (02:12→02:19)
[2019-07-26] MEDS ORDERED: fentaNYL* 50 MCG/ML 2 ML VIAL (100 MCG VIAL) IV SLOW PU PRN (02:49)
[2019-07-26] MEDS ORDERED: Acetaminophen TAB* 325 MG PO SCH (03:00)
--- NOTE | 2019-07-26 03:25 | PN ---
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 Formal read is as below: IMPRESSION: 1. Unstable fracture located at the L3-L4 disc space. Soft tissue tumor involving the L3-L4 disc space with marked expansion of the disc space. Associated fracture involving the right inferior lateral aspect of the L3 vertebral body. Fracture involving the L3 pars interarticularis bilaterally. The disc space measures approximately 3.6 cm in height. Displacement of the L3 vertebral body superiorly and slightly anteriorly. A a corner fragment is noted. This soft tissue mass protrudes into the epidural space causing severe narrowing of the thecal sac. This soft tissue tumor also protrudes into the right neural foramina causing severe neural foraminal narrowing. 2. Destruction of the psoas superior endplate of L4 located centrally and to the left of midline. 3. Fracture of the anterior inferior aspect of the L1 vertebral body related to a exuberant degenerative osteophyte. 4. Marked enlargement of the right psoas muscle with associated soft tissue inflammation. 5. Old fracture of the right sacral ala. 6. Old fracture of the right iliac bone. -Per pt, last neg PET was May 2019. though I assume -An important component of the decision making process when considering options for definitive therapy is assessment of spinal stability. Treatment of an spinal cord mets differs in those patients whose spines are unstable compared with those with stable spines. Pain from an unstable spine will not be relieved with RT, and there is a lack of evidence on whether spinal bracing is an effective technique for reducing pain. Thus, an unstable spine must be stabilized either by surgery with fixation or by percutaneous vertebral repair ( in the absence of epidural disease). Decision making about surgical versus nonsurgical treatment in patients with metastatic spine tumors can be difficult. A decision framework that is based on neurologic (extent of cord compression, presence or absence of myelopathy), oncologic (radiosensitivity of the malignancy, prior irradiation), mechanical (presence of spinal instability) , and systemic factors (able to tolerate surgery) has been developed to assist in the decision-making process. The foundation of this assessment utilizes neurosurgery as a christensen decision maker and the patient and his family are eager to get as much assistance as they can in this difficult decision. Medicine is recommending evaluation by neurosurgery which we can not offer, thus we recommend transfer.
[2019-07-26] MEDS ORDERED: Morphine 4 MG/ML VIAL (1 ml) 4 MG/ML VIAL ONE (05:00)
--- NOTE | 2019-07-26 05:02 | HP ---
HISTORY AND PHYSICAL, CHANGED INTO CONSULTATION NOTE DATE OF ADMISSION/CONSULTATOIN: 07/26/19 PRIMARY CARE PROVIDER: Marcin Watt MD, Oncologist: Dr. Adams Whitmore INSTRUCTOR PHYSICAL: Sergey Nugent, the patient's domestic partner. CODE STATUS: Full. REASON FOR CONSULTATION: Falls, weakness, intractable pain, inability to care for self at home. HISTORY OF PRESENT ILLNESS: Limited by the condition of the patient and was obtained by interview of the patient as well as interview of Sergey Nugent, the patient's domestic partner. 69-year-old male with past medical history of multiple myeloma, purported remission by patient still on active treatment; paroxysmal atrial fibrillation, on anticoagulation and status post pacemaker for sick sinus syndrome; CAD, status post distant PCI with last cath in 2018 with no interventions; heart failure with preserved ejection fraction with January 2019 echocardiogram EF 55%; severe , status post TAVR in [place] in April of 2019; mild chronic anemia; likely undiagnosed obstructive sleep apnea; COPD; history of PE; insulin -dependent diabetes; hypertension; hyperlipidemia; depression; chronic pain, formerly opiate dependent, recently discontinued, who presented to the hospital this evening with recurrent falls and left leg and back pain. The patient reports that he was doing well after his TAVR, which was performed on 04/22/19. He had a significant fall down the stairs with a large low back hematoma that eventually radiated to the flank that caused significant pain and left him bedbound for most of May. He started ambulating slowly with his walker and between May and June decided to wean himself off all of his pain medications. He then again declined starting early July having significant back pain for the last 2 weeks that culminated in another mechanical fall 2 days ago. For 2 days, the patient's partner reports that he has been in significant pain, lower back, radiating down left leg with associated decrease in appetite and inability to get out of bed. He has been bedbound since this fall 2 days ago and has been unable to eat or drink secondary to being bedbound and has been continuing his regular dose medications including insulin and had significant hypoglycemia at home as a result. Because of his inability to care for himself, his continued left leg pain, his low blood sugars and the patient was unable to ambulate safely to the bathroom and thus continued to have urinary incontinence, the patient decided to call EMS and on arrival of the EMS, the patient was found on a urine-soaked mattress and thus he was brought in. On review of systems, the patient's partner said that he seemed confused yesterday, but it was at the same time of his low blood sugar. He has been taking 30 mg of extended- release morphine off and on for the last 1 to 2 weeks after being off of the pain medications altogether. He denies chest pain, shortness of breath, cough, fevers, nausea, vomiting, and reports that he has memory of his falls with no prodrome preceding them. On my exam, the patient's chief complaint is left leg pain, but he is otherwise awake, alert and oriented and while he is a poor historian secondary to the pain that he is in, he can only vaguely recall the events of the last 1 to 2 weeks. EMERGENCY ROOM COURSE: Temperature is 97.2, heart rate 78, respiratory rate 24 , blood pressure 136/69, he is 99% on room air. EKG shows total ventricular pacing with baselines of flutter. Imaging including hip and pelvic x-rays and left femur x-rays showed old left hip prosthesis, but no obvious fracture, radiographs do appear to have the presence of bony mets in the pelvis. A brain CT was performed with no acute bleeding. A CT lumbar spine and CT pelvis showed L3 unstable fracture and evidence of metastatic disease. The patient got morphine and Zofran in the ER, but because of his nonambulatory status in this medically frail patient, the hospitalists were asked to admit, we ultimately decided to transfer the patient 2/ to L3 fracture. PAST MEDICAL HISTORY: 1. Paroxysmal atrial fibrillation, on anticoagulation, status post pacemaker for sick sinus syndrome. 2. CAD, status post distant PCI. 3. Heart failure with preserved ejection fraction. 4. Multiple myeloma, currently in treatment with julisa Llamas. 5. Insulin-dependent diabetes. 6. History of PE. 7. COPD. 8. Mild chronic anemia. 9. Hyperlipidemia. 10. Hypertension. 11. Depression. 12. Chronic pain, on long-term opiates. 13. History of aortic stenosis, severe. 13. Status post TAVR in April 2019. PAST SURGICAL HISTORY: 1. Left hip replacement in 2014. 2. Bilateral cataracts. 3. Cardiac ablation in 2017. 4. Hernia repair, status post TAVR, April 2019. SOCIAL HISTORY: The patient is retired, lives with his partner. He is a former tobacco user and quit greater than 15 years with a [id number] history. Alcohol, he denies. No history of illicit drugs. FAMILY HISTORY: Positive for CAD in mother and father. ALLERGIES: To IBUPROFEN and PREGABALIN. MEDICATIONS: 1. Vitamin D3 1000 units p.o. q.h.s., 2000 units p.o. q.a.m. 2. Diltiazem CD 120 mg p.o. daily. 3. Glipizide 5 mg p.o. daily. 4. Insulin glargine 30 units subcutaneous q.h.s. 5. Magnesium oxide 400 mg p.o. t.i.d. 6. Metformin 1000 mg p.o. b.i.d. 7. Morphine extended release p.o. b.i.d. p.r.n., the patient has been taking 1 tab per day for the last 1 to 2 weeks. 8. Albuterol inhaler 2 puffs inhaled q.4 hours p.r.n. 9. Apixaban 5 mg p.o. b.i.d. 10. Aspirin 81 mg p.o. daily. 11. Atorvastatin 10 mg p.o. q.h.s. 12. Calcium carbonate 500 mg p.o. q.a.m. 13. Vitamin B12 1000 mcg p.o. q. a.m. 14. Docusate 100 mg p.o. b.i.d. 15. Duloxetine 60 mg p.o. q.a.m. 16. Furosemide 40 mg p.o. q.a.m. 17. Gabapentin 300 mg p.o. q.h.s. 18. Metoprolol 12.5 mg p.o. q.a.m. 19. Mometasone/formoterol or Dulera inhaler 2 puffs inhaled b.i.d. 20. Pantoprazole 40 mg p.o. q.a.m. 21. Potassium chloride 20 mEq p.o. daily. 22. Tamsulosin 0.4 mg p.o. q. a.m. REVIEW OF SYSTEMS: Constitutional: Negative for fevers, chills, malaise. HEENT: Negative for headaches, vision changes, sore throat. Cardiovascular: Negative for chest pain, shortness of breath, palpitations. Respiratory: Negative for shortness of breath, cough or pleuritic chest pain. GI: Negative for nausea, vomiting, diarrhea or abdominal pain. : Negative for dysuria, hematuria. He often urinates and this has not changed in his baseline. Musculoskeletal: Positive for left lower leg pain, back pain, weakness. Skin: Negative for focal rashes. It is positive for red burn and bruising on left lower leg from most recent mechanical fall. Neurological: Negative for focal weakness or numbness. Psychiatric: Negative for anxiety or depression. Endocrine: Negative for polyuria, polydipsia. Heme: Positive for easy bruising and bleeding, but negative for lymphadenopathy. Allergies: Negative for seasonal or frequent infections. PHYSICAL EXAMINATION VITAL SIGNS: At the time of physical exam, blood pressure is 130/70, respiratory rate 19, temperature is 97, pulse is 78 paced, oxygen saturation is 98% on room air. GENERAL APPEARANCE: This is a chronically ill-appearing obese man, groaning in pain, but in no acute distress and can easily follow along with my exam and A and Ox3. HEENT: Pupils are pinpoint, but reactive. Extraocular muscles are intact. Sclerae anicteric. Mucous membranes are dry. He has dried crusted blood at his naris. LYMPHS: He has no supraclavicular or cervical lymphadenopathy. NECK: Supple. RESPIRATORY: Lungs are clear to auscultation bilaterally. CARDIAC: Regular rate and rhythm. S1, S2. Pacemaker pocket clean, dry and intact. ABDOMEN: Belly is distended, but soft, nontender. Abdominal hernia is noted. SKIN: The patient has large areas of skin breakdown on left knee, back and spine. The patient is noncooperative with exam and unable to sit up, but on rolling has tenderness to palpation all throughout paraspinal muscles and mild bruising on lower sacrum. MUSCULOSKELETAL/EXTREMITIES: The patient has no tenderness to palpation on left or right hip and full range of motion in right leg, although left lower leg straight leg raise is positive and the patient is uncooperative with exam. Extremities have 1+ nonpitting edema and chronic venous stasis changes. Spinal exam reveals extreme point tenderness to lumbar spine and palpable deformity of L3,4,5. NEURO: Cranial nerves II through XII were intact with no focal neurological deficits. Moving all 4 limbs spontaneously with 4/5 weakness in L lower leg. The patient is awake, alert and cooperative with exam, although occasionally moans in pain. LABS AND STUDIES: White blood cell count 7.8, hemoglobin 10.1, hematocrit 31, platelets 46. Chemistry: Sodium 141, potassium 3.8, chloride 105, carbon dioxide 30, anion gap 6, BUN 32, creatinine 0.95, glucose 36, repeat was 50. Lactic acid 1.5, AST 35, ALT 16, alk phos 74, troponin 0.02. Urinalysis unremarkable. Urine tox is positive for urine opiates. Imaging includes brain CT, which shows no intracranial pathology. Femur and hip , pelvis x-ray, which show no acute obvious fractures on limited read. CT spine and CT pelvis IMPRESSION: 1. Unstable fracture located at the L3-L4 disc space. Soft tissue tumor involving the L3-L4 disc space with marked expansion of the disc space. Associated fracture involving the right inferior lateral aspect of the L3 vertebral body. Fracture involving the L3 pars interarticularis bilaterally. The disc space measures approximately 3.6 cm in height. Displacement of the L3 vertebral body superiorly and slightly anteriorly. A a corner fragment is noted. This soft tissue mass protrudes into the epidural space causing severe narrowing of the thecal sac. This soft tissue tumor also protrudes into the right neural foramina causing severe neural foraminal narrowing. 2. Destruction of the psoas superior endplate of L4 located centrally and to the left of midline. 3. Fracture of the anterior inferior aspect of the L1 vertebral body related to a exuberant degenerative osteophyte. 4. Marked enlargement of the right psoas muscle with associated soft tissue inflammation. 5. Old fracture of the right sacral ala. 6. Old fracture of the right iliac bone. New lying 7. Exuberant bone formation related to a right hip arthroplasty in the anterior aspect of the left iliac fossa. EKG shows paced rhythm with underlying fib and no acute signs of ischemia. ASSESSMENT AND PLAN: This is a 69-year-old male with past medical history of multiple myeloma, paroxysmal atrial fibrillation, on anticoagulation and status post pacemaker for sick sinus syndrome; coronary artery disease, status post distant PCI; heart failure with preserved ejection fraction; severe aortic stenosis, status post recent TAVR; likely undiagnosed obstructive sleep apnea; chronic obstructive pulmonary disease; insulin-dependent diabetes; hypertension; hyperlipidemia; depression; and chronic pain with former dependence, but recently discontinued all pain meds, he reports without withdrawal, who presented to the hospital this evening with ongoing left leg and lower back pain in the setting of mechanical fall initially that happened in April 2019 with intermittent recovery and then repeat mechanical fall 2 days ago with nonambulatory status since then. He is found to have diffuse metastatic disease likely all progression of MM (though can't rule out other primary tumor) also found to have hypoglycemia, thrombocytopenia and secondary to his nonambulatory status, we are recommending transfer to higher level of care for neurosurgical eval. 1. Recurrent falls. This is multifactorial, possibly his hypoglycemia in the setting of poor p.o. intake in the last 2 days since his last mechanical fall. PT/OT is ordered. Check orthostatics. We will monitor on telemetry, but he has no evidence of prodromes, so this is unlikely syncopal event. 2. Low back pain. From L3 spinal fracture and sig metastatic dz--An important component of the decision making process when considering options for definitive therapy is assessment of spinal stability.Treatment of an spinal cord mets differs in those patients whose spines are unstable compared with those with stable spines. Pain from an unstable spine will not be relieved with RT, and there is a lack of evidence on whether spinal bracing is an effective technique for reducing pain. Thus, an unstable spine must be stabilized either by surgery with fixation or by percutaneous vertebral repair (in the absence of epidural disease). Decision making about surgical versus nonsurgical treatment in patients with metastatic spine tumors can be difficult. A decision framework that is based on neurologic (extent of cord compression, presence or absence of myelopathy), oncologic (radiosensitivity of the malignancy, prior irradiation), mechanical (presence of spinal instability), and systemic factors (able to tolerate surgery) has been developed to assist in the decision-making process. The foundation of this assessment utilizes neurosurgery as a christensen decision maker and the patient and his family are eager to get as much assistance as they can in this difficult decision. Medicine is recommending evaluation by neurosurgery which we can not offer, thus we recommend transfer. 3. Paroxysmal atrial fibrillation, on anticoagulation. The patient is fully paced. 4. Heart failure with preserved ejection fraction. The patient appears hypovolemic with dry mucous membranes. No evidence of significant edema, no crackles. We will give gentle IV fluids 100 cc for a total of 1 L and then resume Lasix on 07/27/19. 5. Multiple myeloma. He is still on active treatment with clear progression of disease. His oncologist is Dr. Whitmore. 6. Severe aortic stenosis. He is status post recent TAVR with no significant complications per partner. 7. Obstructive sleep apnea. The patient likely has obstructive sleep apnea, but has not been diagnosed. He does not wear CPAP at home. 8. Insulin-dependent diabetes. Evidence of being over treated. Continue lower dose insulin at 20 units q.h.s. and point of care glucose with sliding scale lispro. Hold metformin, hold glipizide. 9. Hypertension. Continue diltiazem and metoprolol and Lasix, starting on . 10. Chronic pain, on opiates. As per above, the patient has been tapering off. Consider pain consult. 11. Depression. Resume duloxetine. 12. Code is full. On explicit and long discussion with the patient and his partner, they agree on full code and are very clear on this disposition, - [place] [facility]. TIME SPENT: Sixty minutes was spent on the planning of this admission. The other half of that spent directly at the bedside of the patient providing direct patient care. Plan of care was discussed with the patient and family, they have no further questions. Plan for transfer. [id number]/[facility] #: [id number] MATT
[2019-07-26 05:45] VITALS: BP 131/62
[2019-07-26] MEDS ORDERED: Insulin LISPRO* 1 UNITS UNIT SUBCUT SCH (07:30)
[2019-07-26] MEDS ORDERED: Furosemide TAB* 20 MG PO SCH (09:00)
[2019-07-26] MEDS ORDERED: Diltiazem CD CAP* 120 MG PO SCH (09:00)
[2019-07-26] MEDS ORDERED: Tamsulosin CAP* 0.4 MG PO SCH (09:00)
[2019-07-26] MEDS ORDERED: Lidocaine PATCH 5%* 1 PATCH TRANSDERM SCH (09:00)
[2019-07-26] MEDS ORDERED: Calcium Carbonate TAB* 1250 MG (CALCIUM 500 MG) PO SCH (09:00)
[2019-07-26] MEDS ORDERED: DULoxetine DR CAP* 60 MG CAP.DR PO SCH (09:00)
[2019-07-26] MEDS ORDERED: Metoprolol Succinate XL TAB* 25 MG PO SCH (09:00)
[2019-07-26] MEDS ORDERED: Pantoprazole TAB * 40 MG TAB PO SCH (09:00)
[2019-07-26] MEDS ORDERED: Aspirin EC TAB* 81 MG TAB.EC PO SCH (09:00)
[2019-07-26] MEDS ORDERED: Cyanocobalamin TAB* 500 MCG PO SCH (09:00)
[2019-07-26] MEDS ORDERED: Potassium Chlor TAB* 20 MEQ TAB.ER PO SCH (09:00)
[2019-07-26] MEDS ORDERED: Apixaban* 5 MG TAB PO SCH (09:00)
[2019-07-26] MEDS ORDERED: Insulin GLARGINE(*) 1 UNITS UNIT SUBCUT SCH (17:00)
[2019-07-26] MEDS ORDERED: Lidocaine Patch REMOVE* 1 NOTE MISC SCH (21:00)
[2019-07-26] MEDS ORDERED: Atorvastatin* 10 MG TAB PO SCH (21:00)
[2019-07-26] MEDS ORDERED: Lidocaine Patch REMOVE* 1 NOTE MISC PATCH OFF SCH (21:00)
[2019-07-26] MEDS ORDERED: Gabapentin CAP(*) 300 MG PO SCH (21:00)
== END 2019-07-26 05:00 | disposition short-term general hospital (02) ==
LOC: ED 20:56 → MEDTELE 07-26 01:02 → UNDOADMIN 07-26 01:02 → ED 07-26 05:00
DX: R62.7 Adult failure to thrive (principal); S32.039A Unspecified fracture of third lumbar vertebra, initial encounter for closed fracture; M48.9 Spondylopathy, unspecified; E11.649 Type 2 diabetes mellitus with hypoglycemia without coma; K21.9 Gastro-esophageal reflux disease without esophagitis; C90.00 Multiple myeloma not having achieved remission; I25.2 Old myocardial infarction; I50.9 Heart failure, unspecified; I25.10 Atherosclerotic heart disease of native coronary artery without angina pectoris; I11.0 Hypertensive heart disease with heart failure; W19.XXXA Unspecified fall, initial encounter; F41.9 Anxiety disorder, unspecified; Y92.9 Unspecified place or not applicable; F32.9 Major depressive disorder, single episode, unspecified; Z87.891 Personal history of nicotine dependence; Z86.14 Personal history of Methicillin resistant Staphylococcus aureus infection; Z96.642 Presence of left artificial hip joint; Z95.0 Presence of cardiac pacemaker; Z91.81 History of falling; Z86.711 Personal history of pulmonary embolism; Z79.899 Other long term (current) drug therapy; Z79.01 Long term (current) use of anticoagulants; Z95.4 Presence of other heart-valve replacement; Z79.4 Long term (current) use of insulin
CPT/HCPCS: 36415; 70450; 72131; 72192; 80053; 80307; 80320; 81003; 83036; 83605; 83880; 84153; 84484; 85025; 86140; 93005; 96374; 96375; 96376; 99284; A9270-GY; G0103; G0480; J2270; J2405; J3010

== ENCOUNTER 2019-08-05 08:53 | Inpatient (IN) | payer MEDICARE, OTHER ==
--- OUTSIDE RECORDS SUMMARY | 2019-08-05 11:50 | XMS REPORT | Continuity of Care Document ---
:1950 External Reference #:[id number] Author Name Traveling ECHO 1 (transmitted by agent of provider Ayde Quinn) Address [address] [place] [address] Care Team Providers Name Role Phone Marcin Watt MD - Family Medicine Care Team Information Manager Plant [facility] - Medical Records Care Team Information Manager Plant Problems Active Problems Provider Date Atrial fibrillation [...] Encounter for planned postprocedural Mitchel Rivas M.D., [facility], Onset: 2018 wound closure [facility] Replacement [...] 1 by mouth every day 90tabs Meghan S. Orestes, 2018 N.P. 10mg Tablets Furosemide 1 by mouth prn Meghan Carlisle, 01/29/2019 40mg N.P. Tablets Aspirin 81 take 1 tab by mouth 90tabs Meghan S. Orestes, 01/19/[address]P. Tablets [address] Elise 1 by mouth twice a Unknown 12/10/2018 5mg Tablets day Toprol XL 1/2 tab by mouth 45tabs Joce Perry 06/30/2018 25mg every day Maureen Cain Tablets ER 24HR Cardizem CD 1 by mouth every day 60caps Joce Perry 06/25/2018 120mg Maureen Cain Caps ER 24HR Potassium Chloride 1 by mouth every 90tabs Meghan S. Orestes, 02/19/2018 Sangeetha ER friday N.P. 20Meq Tablets [...] Fraction 55-60% Echo 01/15/19 Results Test Acquired Facility Test Result H/L Range Note Date Laboratory 07/26/2019 [facility] Point of 93 mg/dL Normal 70- 100 1 test finding [address] [place] [address] Glucose [phone] Laboratory 07/26/2019 [facility] Point of 49 mg/dL Low 70-100 2 test finding [address] [place] [address] Glucose [phone] Laboratory 07/26/2019 [facility] Point of 47 mg/dL Low 70-100 3 test finding [address] [place] [address] Glucose [phone] Laboratory 07/26/2019 [facility] Troponin-I 0.03 ng/mL Critical <0.03 4 test finding [address] (TnI) [place] [address] [phone] Laboratory 07/25/2019 [facility] of 75 mg/dL Normal 70- 100 5 test finding [address] [place] [address] Glucose [phone] Laboratory 07/25/2019 [facility] of 50 mg/dL Low 70-100 6 test finding [address] [place] [address] Glucose [phone] Laboratory 03/11/2019 [facility] Point of 165 mg/dL High 70- 100 7 test finding [address] [place] [address] Glucose [phone] CBC Auto Diff 03/03/2019 [facility] White Blood 6.1 Normal 3.5 -10.[address] Count 10^3/[place] [address] [phone] Red Blood Count 4.34 10^6/uL Normal 4.18-5.48 [...] Blood Cells % 0.0 Basic Metabolic 03/03/2019 [facility] Sodium 142 mmol/L Normal 135-[address] [place] [address] [phone] Potassium 4.0 mmol/L Normal 3.5-5.0 Chloride 104 mmol/L Normal 101-111 Co2 Carbon Dioxide 31 mmol/L Normal 22-32 Anion Gap 7 mmol/L Normal 2-11 Glucose 131 mg/dL High 70-100 Blood Urea Nitrogen 19 mg/dL Normal 6-24 Creatinine 0.98 mg/dL Normal 0.67-1.17 BUN/Creatinine Ratio 19.4 Normal 8-20 Calcium 9.0 mg/dL Normal 8.6-10.3 Egfr Non- 75.8 >60 Egfr 91.8 >60 8 Laboratory 01/27/2019 [facility] B-Type 161 pg/mL High <=100 test finding [address] [place] [address] Peptide BNP [phone] CBC Auto Diff 01/27/2019 [facility] White Blood 5.5 Normal 3.5 -10.[address] Count 10^3/[place] [address] [phone] Red Blood Count 4.34 10^6/uL Normal 4.18-5.48 [...] Blood Cells % 0.0 Comp Metabolic 01/27/2019 [facility] Sodium 142 mmol/L Normal 135-[address] [place], [place] [address] [phone] Potassium 4.1 mmol/L Normal 3.5-5.0 Chloride 103 [...] Egfr Non- 84.8 >60 Egfr 102.6 >60 9 1 Infant And Toddler Teacher: [id number] 2 Infant And Toddler Teacher: [id number] 3 Infant And Toddler Teacher: [id number] 4 Result TnIDx:0.03 Called to [id number] at: 01:16:11 by:[id number] Read back by: [id number] Troponin-I testing on Plasma Separator Tubes (PST) has a known false positive rate of 0.20-0.40%. All positive troponins reflex immediately to secondary confirmatory testing. Using the [employer] DxI 800 Access Immunoassay systems, the 99th percentile upper reference limit was demonstrated to be < 0.03 ng/mL. 5 Infant And Toddler Teacher: [id number] 6 Infant And Toddler Teacher: [id number] 7 Infant And Toddler Teacher: [id number] 8 Because ethnic data is not always readily [...] 15-29 5 Kidney failure <15 (or dialysis) 9 Because ethnic data is not always readily [...] dialysis) Procedures Date Code Description Status 07/21/2019 99173 ECHO Transthoracic, Real-Time 2D With Doppler And Color Completed Flow 07/21/2019 06343 ECHO Transthoracic, Real-Time 2D With Doppler And Color Completed Flow 07/16/2019 62870 Pace Maker Eval W/Iterative Adjment Dual Lead Completed 07/16/2019 21809 Pace Maker Eval W/Iterative Adjment Dual Lead Completed 05/25/2019 78583 EKG Tracing & Interpretation Completed 05/25/2019 58930 EKG Tracing & Interpretation Completed 05/24/2019 47635 ECHO Transthoracic, Real-Time 2D With Doppler And Color Completed Flow 05/24/2019 52754 ECHO Transthoracic, Real-Time 2D With Doppler And Color Completed Flow 03/11/2019 97619 Cath PLMT&NJX L Ventriculog Img S&I Completed 03/05/2019 38358 EKG Tracing & Interpretation Completed Medical Devices Description No Information Available Encounters Type Date Location Provider Dx Diagnosis Office Visit 05/10/2019 [facility] Joce Perry Z95.0 Presence of 1:40p Of César Cain M.D. cardiac pacemaker I42.9 Cardiomyopathy, unspecified I25.10 Athscl heart disease of [place] coronary artery w/o ang pctrs I35.0 Nonrheumatic aortic (valve) stenosis Office Visit 03/17/2019 3:40p [place] Mitchel Rivas, Z48.1 Encounter for Cardiology Of MINE Reddy, planned Plant Attendant AT [facility] postprocedural wound closure Z48.812 Encntr for surgical aftcr following surgery on the circ sys Office Visit 03/05/2019 1:30p [facility] Meghan Collins R06.00 Dyspnea, Of César Carlisle N.P. unspecified I42.9 Cardiomyopathy, unspecified Z95.0 Presence of cardiac pacemaker I35.0 Nonrheumatic aortic (valve) stenosis I10 Essential (primary) hypertension I25.10 Athscl heart disease of [place] coronary artery w/o ang pctrs Assessments Date Code Description Provider 07/21/2019 I42.9 Cardiomyopathy, unspecified Joce Cain M.D. 07/21/2019 I42.9 Cardiomyopathy, unspecified Traveling ECHO 1 [...] pacemaker Joce Cain M.D. 05/10/2019 I42.9 Cardiomyopathy, unspecified Joce Cain M.D. 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 [place] coronary artery with 05/10/2019 I35.0 Aortic valve stenosis Joce Cain M.D. 03/17/2019 Z48.1 Encounter for planned postprocedural Mitchel Rivas M.D., [facility], wound closure [facility] 03/17/2019 Z48.812 Encounter for surgical aftercare [facility], following surgery on the circulatory [facility] system 03/11/2019 I25.10 Atherosclerotic heart disease of Bertha Chavarria MD, [facility], [place] coronary artery without angina [facility] pectoris 03/05/2019 Z95.0 Presence of cardiac pacemaker Joce Cain M.D. 03/05/2019 I42.9 Cardiomyopathy, unspecified Joce Cain M.D. 03/05/2019 R94.31 Abnormal electrocardiogram [ECG] Joce Cain M.D. [EKG] 03/05/2019 R06.00 Dyspnea, unspecified Meghan Carlisle, N.P. 03/05/2019 I25.10 Atherosclerotic heart disease of Joce Cain M.D. [place] coronary artery with 03/05/2019 I35.0 Nonrheumatic aortic (valve) stenosis Joce Cain M.D. 03/05/2019 I42.9 Cardiomyopathy, unspecified Meghan Carlisle, N.P. 03/05/2019 Z95.0 Presence of cardiac pacemaker Meghan Carlisle N.P. 03/05/2019 I35.0 Nonrheumatic aortic (valve) stenosis Meghan Carlisle, N.P. 03/05/2019 I10 Essential (primary) hypertension Meghan Carlisle N.P. 03/05/2019 I25.10 Atherosclerotic heart disease of Meghan Carlisle N.PJailyn [place] coronary artery with Plan of Treatment No Information Available Functional Status Description No Information Available Mental Status Description No Information Available Referrals Description No Information Available
--- OUTSIDE RECORDS SUMMARY | 2019-08-05 11:50 | XMS REPORT | Continuity of Care Document ---
:1950 External Reference #:[id number] Author Name Joce Cain M.D. (transmitted by agent of provider Ayde Quinn) Address [address] [place] [id number] Care Team Providers Name Role Phone Marcin Watt MD - Family Medicine Care Team Information Time Stamp Assembler [facility] - Medical Records Care Team Information Time Stamp Assembler Problems Active Problems Provider Date Atrial fibrillation [...] Encounter for planned postprocedural Mitchel Rivas M.D., [facility], Onset: 2018 wound closure [facility] Replacement of [...] Result H/L Range Note Date Laboratory 07/26/2019 [facility] Point of 93 mg/dL Normal 70- 100 1 test finding [address] [place] [address] Glucose [phone] Laboratory 07/26/2019 [facility] Point of 49 mg/dL Low 70-100 2 test finding [address] [place] [address] Glucose [phone] Laboratory 07/26/2019 [facility] Point of 47 mg/dL Low 70-100 3 test finding [address] [place] [address] Glucose [phone] Laboratory 07/26/2019 [facility] Troponin-I 0.03 ng/mL Critical <0.03 4 test finding 101 [facility] ([facility]) [place] [address] [phone] Laboratory 07/25/2019 [facility] Point of 75 mg/dL Normal 70- 100 5 test finding [address] [place] [address] Glucose [phone] Laboratory 07/25/2019 [facility] Point of 50 mg/dL Low 70-100 6 test finding [address] [place] [address] Glucose [phone] Laboratory 03/11/2019 [facility] Point of 165 mg/dL High 70- 100 7 test finding [address] [place] [address] Glucose [phone] CBC Auto Diff 03/03/2019 [facility] White Blood 6.1 Normal 3.5 -10.8 101 [facility] Count 10^3/[place] [address] [phone] Red Blood Count 4.34 10^6/uL Normal 4.18-5.48 [...] Blood Cells % 0.0 Basic Metabolic 03/03/2019 [facility] Sodium 142 mmol/L Normal 135-[address] [place] [address] [phone] Potassium 4.0 mmol/L Normal 3.5-5.0 Chloride 104 mmol/L Normal 101-111 Co2 Carbon Dioxide 31 mmol/L Normal 22-32 Anion Gap 7 mmol/L Normal 2-11 Glucose 131 mg/dL High 70-100 Blood Urea Nitrogen 19 mg/dL Normal 6-24 Creatinine 0.98 mg/dL Normal 0.67-1.17 BUN/Creatinine Ratio 19.4 Normal 8-20 Calcium 9.0 mg/dL Normal 8.6-10.3 Egfr Non- 75.8 >60 Egfr 91.8 >60 8 1 Volunteer Services Coordinator: [id number] 2 Volunteer Services Coordinator: [id number] 3 Volunteer Services Coordinator: [id number] 4 Result TnIDx:0.03 Called to [id number] at: 01:16:11 by:[id number] Read back by: [id number] Troponin-I testing on Plasma Separator Tubes (PST) has a known false positive rate of 0.20-0.40%. All positive troponins reflex immediately to secondary confirmatory testing. Using the [employer] DxI 800 Access Immunoassay systems, the 99th percentile upper reference limit was demonstrated to be < 0.03 ng/mL. 5 Volunteer Services Coordinator: [id number] 6 Volunteer Services Coordinator: [id number] 7 Volunteer Services Coordinator: [id number] 8 Because ethnic data is not always [...] (or dialysis) Procedures Date Code Description Status 07/22/2019 22644 Amb.BP Monitor/Phys Interp&Report Completed 07/21/2019 38377 ECHO Transthoracic, Real-Time 2D With Doppler And Color Completed Flow 07/21/2019 10114 ECHO Transthoracic, Real-Time 2D With Doppler And Color Completed Flow 07/16/2019 66991 Pace Maker Eval W/Iterative Adjment Dual Lead Completed 07/16/2019 33087 Pace Maker Eval W/Iterative Adjment Dual Lead Completed 05/25/2019 15948 EKG Tracing & Interpretation Completed 05/25/2019 87357 EKG Tracing & Interpretation Completed 05/24/2019 98252 ECHO Transthoracic, Real-Time 2D With Doppler And Color Completed Flow 05/24/2019 83048 ECHO Transthoracic, Real-Time 2D With Doppler And Color Completed Flow 03/11/2019 95143 Cath PLMT&NJX L Ventriculog Img S&I Completed 03/05/2019 91754 EKG Tracing & Interpretation Completed Medical Devices Description No Information Available Encounters Type Date Location Provider Dx Diagnosis Office Visit 05/10/2019 [facility] Joce Perry Z95.0 Presence of 1:40p Of César Cain M.D. cardiac pacemaker I42.9 Cardiomyopathy, unspecified I25.10 Athscl heart disease of [place] coronary artery w/o ang pctrs I35.0 Nonrheumatic aortic (valve) stenosis Office Visit 03/17/2019 3:40p [place] Mitchel Rivas Z48.1 Encounter for Cardiology Of MINE Reddy, planned Practice Performance Manager AT [facility] postprocedural wound closure Z48.812 Encntr for surgical aftcr following surgery on the circ sys Office Visit 03/05/2019 1:30p [facility] Meghan SJialyn R06.00 Dyspnea, Of Jose Camacho.PJailyn unspecified I42.9 Cardiomyopathy, unspecified Z95.0 Presence of cardiac pacemaker I35.0 Nonrheumatic aortic (valve) stenosis I10 Essential (primary) hypertension I25.10 Athscl heart disease of [place] coronary artery w/o ang pctrs Assessments Date Code Description Provider 07/22/2019 I10 Essential (primary) hypertension Joce Cain M.D. 07/21/2019 I42.9 Cardiomyopathy, unspecified Joce Cain M.D. 07/21/2019 I42.9 Cardiomyopathy, unspecified Traveling ECHO 1 07/16/2019 I48.91 Unspecified atrial fibrillation Joce Cain M.D. 07/16/2019 I48.91 Unspecified atrial fibrillation Ica Pacer Schedule 07/16/2019 Z95.0 Presence of cardiac pacemaker Joce aCin M.D. 07/16/2019 Z95.0 Presence of cardiac pacemaker [...] Atherosclerotic heart disease of Joce Cain M.D. [place] coronary artery with 05/10/2019 I35.0 Aortic valve stenosis Joce Cain M.D. 03/17/2019 Z48.1 Encounter for planned postprocedural Mitchel Rivas M.D., [facility], wound closure [facility] 03/17/2019 Z48.812 Encounter for surgical aftercare Mitchel Rivas M.D., [facility], following surgery on the circulatory [facility] system 03/11/2019 I25.10 Atherosclerotic heart disease of Bertha Chavarria MD, [facility], [place] coronary artery without angina [facility] pectoris 03/05/2019 Z95.0 Presence of cardiac pacemaker Joce Cain M.D. 03/05/2019 I42.9 Cardiomyopathy, unspecified Joce Cain M.D. 03/05/2019 R94.31 Abnormal electrocardiogram [ECG] Joce Cain M.D. [EKG] 03/05/2019 R06.00 Dyspnea, unspecified Meghan Carlisle, N.P. 03/05/2019 I25.10 Atherosclerotic heart disease of Joce Cain M.D. [place] coronary artery with 03/05/2019 I35.0 Nonrheumatic aortic (valve) stenosis Joce Cain M.D. 03/05/2019 I42.9 Cardiomyopathy, unspecified Meghan Carlisle, N.P. 03/05/2019 Z95.0 Presence of cardiac pacemaker Meghan SJailyn Carlisle, N.P. 03/05/2019 I35.0 Nonrheumatic aortic (valve) stenosis Meghan Carlisle, N.P. 03/05/2019 I10 Essential (primary) hypertension Meghan Carlisle, N.P. 03/05/2019 I25.10 Atherosclerotic heart disease of Meghan Carlisle, N.P. [place] coronary artery with Plan of Treatment No Information Available Functional Status Description No Information Available Mental Status Description No Information Available Referrals Description No Information Available
--- OUTSIDE RECORDS SUMMARY | 2019-08-05 11:50 | XMS REPORT | Continuity of Care Document ---
:1950 External Reference #:[id number] Author Name Anjana Loco MD (transmitted by agent of provider Nadine Cruz) Address [address] [place] [address] Care Team Providers Name Role Phone Marcin Watt MD - Family Medicine Care Team Information Sample Driller [phone] [facility] - Medical Records Care Team Information Sample Driller Problems Active Problems Provider Date Atrial fibrillation [...] Encounter for planned postprocedural Mitchel Rivas M.D., [facility], Onset: 2018 wound closure [facility] Replacement of [...] take 1 tab by mouth 90tabs Meghan SJailyn Carlisle, 01/19/[address] [...] Result H/L Range Note Date Laboratory 07/26/2019 [facility] Point of 93 mg/dL Normal 70- 100 1 test finding [address] [place] [address] Glucose [phone] Laboratory 07/26/2019 [facility] Point of 49 mg/dL Low 70-100 2 test finding [address] [place] [address] Glucose [phone] Laboratory 07/26/2019 [facility] Point of 47 mg/dL Low 70-100 3 test finding [address] [place] [address] Glucose [phone] Laboratory 07/26/2019 [facility] Troponin-I 0.03 ng/mL Critical <0.03 [address] (TnI) [place] [address] [phone] Laboratory 07/25/2019 [facility] Point of 75 mg/dL Normal 70- 100 5 test finding [address] [place] [address] Glucose [phone] Laboratory 07/25/2019 [facility] Point of 50 mg/dL Low 70-100 [address] [place] [address] Glucose [phone] Laboratory 03/11/2019 [facility] Point of 165 mg/dL High 70- 100 [address] [place] [address] Glucose [phone] CBC Auto Diff 03/03/2019 [facility] White Blood 6.1 Normal 3.5 -10.[address] Count 10^3/[place] [address] [phone] Red Blood Count 4.34 10^6/uL Normal 4.18-5.48 [...] Blood Cells % 0.0 Basic Metabolic 03/03/2019 [facility] Sodium 142 mmol/L Normal 135-[address] [place] [address] [phone] Potassium 4.0 mmol/L Normal 3.5-5.0 Chloride 104 mmol/L Normal 101-111 Co2 Carbon Dioxide 31 mmol/L Normal 22-32 Anion Gap 7 mmol/L Normal 2-11 Glucose 131 mg/dL High 70-100 Blood Urea Nitrogen 19 mg/dL Normal 6-24 Creatinine 0.98 mg/dL Normal 0.67-1.17 BUN/Creatinine Ratio 19.4 Normal 8-20 Calcium 9.0 mg/dL Normal 8.6-10.3 Egfr Non- 75.8 >60 Egfr 91.8 >60 8 1 Seam Hammerer: [id number] 2 Seam Hammerer: [id number] 3 Seam Hammerer: [id number] 4 Result TnIDx:0.03 Called to [id number] at: 01:16:11 by:[id number] Read back by: [id number] Troponin-I testing on Plasma Separator Tubes (PST) has a known false positive rate of 0.20-0.40%. All positive troponins reflex immediately to secondary confirmatory testing. Using the [employer] DxI 800 Access Immunoassay systems, the 99th percentile upper reference limit was demonstrated to be < 0.03 ng/mL. 5 Seam Hammerer: [id number] 6 Seam Hammerer: [id number] 7 Seam Hammerer: [id number] 8 Because ethnic data is not always [...] dialysis) Procedures Date Code Description Status 07/22/2019 97149 Amb.BP Monitor/Phys Interp&Report Completed 07/21/2019 29869 ECHO Transthoracic, Real-Time 2D With Doppler And Color Completed Flow 07/21/2019 81009 ECHO Transthoracic, Real-Time 2D With Doppler And Color Completed Flow 07/16/2019 25694 Pace Maker Eval W/Iterative Adjment Dual Lead Completed 07/16/2019 93408 Pace Maker Eval W/Iterative Adjment Dual Lead Completed 05/25/2019 59436 EKG Tracing & Interpretation Completed 05/25/2019 74070 EKG Tracing & Interpretation Completed 05/24/2019 64238 ECHO Transthoracic, Real-Time 2D With Doppler And Color Completed Flow 05/24/2019 24805 ECHO Transthoracic, Real-Time 2D With Doppler And Color Completed Flow 03/11/2019 13386 Cath PLMT&NJX L Ventriculog Img S&I Completed 03/05/2019 83960 EKG Tracing & Interpretation Completed Medical Devices Description No Information Available Encounters Type Date Location Provider Dx Diagnosis Office Visit 07/26/2019 [facility] Anjana Loco MD S32.009A Unsp fracture of 12:31p Assoc,pc unsp lumbar Hospitalists vertebra, init for clos fx M54.5 Low back pain I48.0 Paroxysmal atrial fibrillation I50.30 Unspecified diastolic (congestive) heart failure C90.00 Multiple myeloma not having achieved remission I35.0 Nonrheumatic aortic (valve) stenosis G47.33 Obstructive sleep apnea (adult) (pediatric) E11.69 Type 2 diabetes mellitus with other specified complication I10 Essential (primary) hypertension Office Visit 05/10/2019 1:40p [facility] Joce Perry Z95.0 Presence of Of César Cain M.D. cardiac pacemaker I42.9 Cardiomyopathy, unspecified I25.10 Athscl heart disease of [place] coronary artery w/o ang pctrs I35.0 Nonrheumatic aortic (valve) stenosis Office Visit 03/17/2019 3:40p Surenrda Rivas Z48.1 Encounter for Cardiology Of MINE Reddy, planned César AT [facility] postprocedural wound closure Z48.812 Encntr for surgical aftcr following surgery on the circ sys Office Visit 03/05/2019 1:30p [facility] Meghan Collins R06.00 Dyspnea, Of Cardiology Manager Foster, N.P. unspecified I42.9 Cardiomyopathy, unspecified Z95.0 Presence of cardiac pacemaker I35.0 Nonrheumatic aortic (valve) stenosis I10 Essential (primary) hypertension I25.10 Athscl heart disease of [place] coronary artery w/o ang pctrs Assessments Date Code Description Provider 07/26/2019 S32.009A Unspecified fracture of unspecified Anjana Loco MD lumbar vertebra, initial encounter for closed fracture 07/26/2019 M54.5 Low back pain Anjana Loco MD 07/26/2019 I48.0 Paroxysmal atrial fibrillation Anjana Loco MD 07/26/2019 I50.30 Unspecified diastolic (congestive) Anjana Loco MD heart failure 07/26/2019 C90.00 Multiple myeloma not having achieved Anjana Loco MD remission 07/26/2019 I35.0 Nonrheumatic aortic (valve) stenosis Anjana Loco MD 07/26/2019 G47.33 Obstructive sleep apnea (adult) Anjana Loco MD (pediatric) 07/26/2019 E11.69 Type 2 diabetes mellitus with other Anjana Loco MD specified complication 07/26/2019 I10 Essential (primary) hypertension Anjana Loco MD 07/22/2019 I10 Essential (primary) hypertension Joce Cain [...] Atherosclerotic heart disease of Joce Cain M.D. [place] coronary artery with 05/10/2019 I35.0 Aortic valve stenosis Joce Cain M.D. 03/17/2019 Z48.1 Encounter for planned postprocedural Mitchel Rivas M.D., [facility], wound closure [facility] 03/17/2019 Z48.812 Encounter for surgical aftercare Mitchel Rivas M.D., [facility], following [facility] 03/11/2019 I25.10 Atherosclerotic heart disease of Bertha Chavarria MD, [facility], [place] coronary artery without angina [facility] pectoris 03/05/2019 Z95.0 Presence of cardiac pacemaker Joce Cain M.D. 03/05/2019 I42.9 Cardiomyopathy, unspecified Joce Cain M.D. 03/05/2019 R94.31 Abnormal electrocardiogram [ECG] Joce Cain M.D. [EKG] 03/05/2019 R06.00 Dyspnea, unspecified Meghan Carlisle, N.P. 03/05/2019 I25.10 Atherosclerotic heart disease of Joce aCin M.D. [place] coronary artery with 03/05/2019 I35.0 Nonrheumatic aortic (valve) stenosis Joce Cain M.D. 03/05/2019 I42.9 Cardiomyopathy, unspecified Meghan Carlisle, N.P. 03/05/2019 Z95.0 Presence of cardiac pacemaker Meghan Carlisle, N.P. 03/05/2019 I35.0 Nonrheumatic aortic (valve) stenosis Meghan Carlisle, N.P. 03/05/2019 I10 Essential (primary) hypertension Meghan Carlisle, N.P. 03/05/2019 I25.10 Atherosclerotic heart disease of Meghan Carlisle, N.PJailyn [place] coronary artery with Plan of Treatment No Information Available Functional Status Description No Information Available Mental Status Description No Information Available Referrals Description No Information Available
[2019-08-05] MEDS ORDERED: Senna TAB 8.6 mg* TAB PO PRN (12:17)
[2019-08-05] MEDS ORDERED: Albuterol/Ipratropium NEB.SOL* Albuterol 2.5 MG/Ipratropium 0.5 MG 3 ML INH PRN (14:10)
[2019-08-05] MEDS ORDERED: Dextrose 50% Syringe 50 ML* 25 GM/50 ML SYRINGE IV PUSH PRN ×2 (14:11→17:39)
[2019-08-05] MEDS: oxyCODONE TAB* 5 MG TAB PO PRN (15:53)
[2019-08-05] MEDS ORDERED: Enoxaparin(*) 40 MG/0.4 ML SYR SUBCUT SCH (16:00)
[2019-08-05] MEDS ORDERED: Insulin LISPRO* 1 UNITS UNIT SUBCUT ONE (17:40)
[2019-08-05] MEDS: metFORMIN* 1,000 MG TAB PO SCH (18:28)
[2019-08-05] MEDS: Atorvastatin* 10 MG TAB PO SCH (18:28)
[2019-08-05] MEDS: Polyethylene Glycol 3350* 17 GM PACKET PO SCH (19:53)
[2019-08-05] MEDS: Docusate CAP* 100 MG PO SCH (19:54)
--- NOTE | 2019-08-05 20:29 | HP ---
ADMISSION HISTORY AND PHYSICAL: DATE OF ADMISSION: 08/05/19 REASON FOR ADMISSION: Lumbar spine fracture, status post lumbar fusion from L1 to L5; multiple myeloma; multiple areas of skin breakdown. HISTORY OF PRESENT ILLNESS: Bienvenido Ferreira is a 69-year-old male. He has a medical history significant for multiple myeloma and follows with Dr. Myranda kline. He had a pulmonary embolism in 2016 and was on chronic anticoagulation. 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 He had a history of coronary artery disease and had PCI. He has heart failure with preserved ejection fraction. He had aortic stenosis and underwent a TAVR in [place] in April of 2019. About a week after the TAVR, he fell down a flight of stairs and developed a large hematoma over his back. It caused significant low back pain, which left him bedbound for most of May. He slowly weaned himself off all of his medications. He had another fall in his home on 07/23/19. The patient had difficulty getting back into his bed and laid down until his partner got home from work. He then got back into bed with his partner's assistance, but stayed largely in the bed. EMS was called and he was brought to [facility] for evaluation on 07/25/19. The patient had imaging done including a CAT can of his lumbar spine. He had had a lumbar spine x-ray done in June, which showed a subacute L1 fracture as well as a compression deformity of L3. He had a CAT scan of his pelvis, which appeared to show a L3 vertebral body compression with possible destruction by tumor. It was decided to send the patient to [facility] because there was no neurosurgeon available. When the patient was seen, he was noted to have a hemoglobin of 5.9. He was found to have a psoas hematoma. He was taken to the operating room and underwent a decompression of L1 through L5 as well as a fusion of a L1 through L5 with an L2 through L4 laminectomy and open reduction of fracture. Surgical pathology did not show any signs of malignancy. Postoperative day 1, he became febrile and a CT of his thorax suggested pneumonia. He was started on Zosyn, but later switched over to ceftriaxone and doxycycline. He completed a 7-day course of antibiotics and did not spike any more fevers. He did require several more transfusions. Repeat CAT scan of his abdomen and pelvis showed his psoas hematoma was stable. He had some difficulty with constipation. He was put on Lovenox for DVT prophylaxis. Resuming his usual anticoagulation was being held and it was recommended that it be held at least 2 weeks after his surgical procedure, which was on 07/28/19. He can use the LSO brace for comfort. The patient was felt to have physical therapy and occupational therapy needs. He is now being admitted for inpatient rehab so he might return to independent living. PAST MEDICAL HISTORY: Significant for the aforementioned multiple myeloma, which is thought to be in remission. In addition, he has a history of atrial fibrillation as well as a history of a DVT. He has a history of COPD and wears oxygen 2 L at home. He has a history of aortic stenosis and underwent TAVR. He has a heart failure with preserved ejection fraction, history of chronic pain , insulin-dependent diabetes mellitus, depression, hypertension. He had a left hip fracture in 2017. CURRENT MEDICATIONS: Include: 1. Tylenol. 2. DuoNeb inhaler. 3. Lipitor. 4. Vitamin D. 5. Vitamin B12. 6. Cardizem. 7. Cymbalta. 8. Lovenox. 9. Lasix. 10. Neurontin. 11. Glipizide. 12. Lantus insulin. 13. Glucophage. 14. Toprol. 15. Dulera. 16. MS Contin. 17. Oxycodone. 18. Protonix. 19. Klor-Con. 20. Flomax. ALLERGIES: The patient has allergies to IBUPROFEN and LYRICA. FAMILY HISTORY: Noncontributory. He does have a history of coronary artery disease in both parents. SOCIAL HISTORY: He lives with his partner, Sergey, in a 2-story house, the bedrooms are upstairs. There are 4 steps to enter. He is a former smoker and no alcohol use. REVIEW OF SYSTEMS: No current shortness of breath or chest pain. Does report constipation. PHYSICAL EXAMINATION VITAL SIGNS: The patient's temperature is 98.1, blood pressure is 128/49, pulse 70, respirations 24. HEENT: His extraocular movements are intact. He is wearing oxygen 2 L via nasal cannula. LUNGS: Sounds are clear. HEART: Sounds regular rhythm. S1 and S2 are audible. ABDOMEN: Soft and nontender. EXTREMITIES: He has bruising over his left calf. He has an abrasion over his right elbow, which is covered with a Mepilex dressing. BACK: His back was examined. He has Steri-Strips over his surgical wound. NEUROLOGIC: Sensation appeared to be intact. Muscle strength was about 4/5 in his legs, 5/5 in his arms. He was alert, oriented. FUNCTIONAL EXAM: His transfers were mod assist of 2 people. ASSESSMENT: 1. L3 fracture after a fall in April with a long period of immobility creating marked weakness in both lower extremities. 2. Multiple myeloma. 3. Diabetes. 4. History of pulmonary embolus. PLAN/RECOMMENDATIONS: Integrate him into a comprehensive and therapeutic rehab program with following goals: 1. Physical Therapy will work with the patient. They are going to work on functional transfer training, wheelchair mobilities, lower extremity strengthening exercises. 2. Occupational Therapy will see the patient, work on his activities of daily living including toileting and toilet transfers. 3. Speech Therapy will evaluate the patient, work on any cognitive difficulties. 4. Adequate analgesia without confusing the patient. 5. Lovenox for DVT prophylaxis. 6. For his diabetes, we will continue his glipizide and his Lantus insulin. We will do fingersticks at meal time with appropriate insulin coverage. 7. For his chronic obstructive pulmonary disease, we will continue oxygen 2 L via nasal cannula. We will also continue with Dulera inhaler as well as DuoNeb nebulizer treatments as needed. 8. For his analgesia, we will do MS Contin 45 mg every 12 hours with oxycodone for breakthrough. We will taper as we can. 9. His bowels will be regulated. 10. security services manager will be closely involved to make sure that any services and equipment that the patient requires are in place prior to discharge. 11. For his paroxysmal atrial fibrillation, anticoagulation is on hold. We are going to continue his Lopressor as well as his Cardizem CD. 12. Family training as appropriate. 13. Home with appropriate services. ESTIMATED LENGTH OF STAY: 17 days. [id number]/CPS #: [id number] MTDD
[2019-08-05] MEDS: Gabapentin CAP(*) 300 MG PO SCH (21:01)
[2019-08-05] MEDS: Morphine TAB Extended Release (*) 15 MG TAB.ER PO SCH (21:02)
[2019-08-05] MEDS: Mometasone/Formoter 100/5 MDI INH SCH (21:03)
[2019-08-05] MEDS: Nystatin TOP POWDER* 15 GM BTL TOPICAL SCH (21:03)
[2019-08-05] MEDS: Insulin GLARGINE(*) 1 UNITS UNIT SUBCUT SCH (21:06)
[2019-08-06] MEDS: Acetaminophen TAB* 325 MG PO PRN (03:13)
[2019-08-06] MEDS: oxyCODONE TAB* 5 MG TAB PO PRN (04:11)
[2019-08-06 05:44] LABS: ABS Eosinophils 0.3 10^3/ul (0-0.6); ABS Lymphocytes 0.5 10^3/ul (1.0-4.8); ABS Monocytes 0.3 10^3/ul (0-0.8); ABS Neutrophils 2.4 10^3/ul (1.5-7.7); Eosinophil % 7.8 %; Hematocrit 29 % (42-52); Hemoglobin 9.4 g/dL (14.0-18.0); Lymphocyte % 15.4 %; Mean Corpuscular HGB Conc 33 g/dL (31-36); Mean Corpuscular Hemoglobin 28 pg (27-31); Mean Corpuscular Volume 86 fL (80-94); Mean Platelet Volume 9.2 fL (7.4-10.4); Nucleated Red Blood Cells % 0.1; Platelet Count 166 10^3/uL (150-450); Red Blood Count 3.35 10^6 /uL (4.18-5.48); Red Cell Distribution Width 17 % (10-15); White Blood Count 3.5 10^3/uL (3.5-10.8)
[2019-08-06 06:00] LABS: Albumin 2.5 g/dL (3.2-5.2); Albumin/Globulin Ratio 1.3 (1-3); BUN/Creatinine Ratio 27.4 (8-20); Calcium 8.4 mg/dL (8.6-10.3); EGFR African American 155.2 (>60); EGFR Non-African American 128.3 (>60); Globulin 1.9 g/dL (2-4); Potassium 3.7 mmol/L (3.5-5.0); Total Protein 4.4 g/dL (6.4-8.9)
[2019-08-06] MEDS: Insulin LISPRO* 1 UNITS UNIT SUBCUT SCH ×3 (07:36→17:27)
--- NOTE | 2019-08-06 10:34 | PN ---
Progress Note Date of Service: 08/06/19 Note: KELSI BLAIR was visited. Nursing and therapy notes read and reviewed. He gets very anxious with staff when transferring and having routine care. Part he feels is just settling in. No chest pain, shortness of breath or abdominal pain. He does feel a little constipated. I called his partner who reviewed with me his home medications. He used lorazepam 1mg qday prn for anxiety, but when he took this he usually just went to sleep or took a nap. He has been a habitual lito. In addition, he was taking magnesium oxide 400mg tid. Current Medications: Active Medications Generic Name Dose Route Start Last Admin Trade Name Freq PRN Reason Stop Dose Admin Acetaminophen 650 mg 08/05/19 12:17 08/06/19 03:13 Tylenol Tab* PO 650 mg Q6H PRN Administration MILD PAIN or TEMP > 100.4 Albuterol/Ipratropium 1 neb 08/05/19 14:10 Duoneb (Albuterol 2.5 Mg/Ipratropium 0.5 Mg) INH Q6H PRN SOB/WHEEZING Atorvastatin Calcium 10 mg 08/05/19 17:00 08/05/19 18:28 Lipitor* PO 10 mg 1700 HERMAN Administration Cholecalciferol 2,000 units 08/06/19 09:00 Vitamin D Tab* PO DAILY HERMAN Cyanocobalamin 1,000 mcg 08/06/19 09:00 Vitamin B12 Tab* PO DAILY HERMAN Dextrose 12.5 gm 08/05/19 17:39 D50w Syringe 50 Ml* IV PUSH .FOR FS < 60 - SS PRN FS < 60 Diltiazem HCl 120 mg 08/06/19 09:00 Cardizem Cd Cap* PO DAILY HERMAN Docusate Sodium 100 mg 08/05/19 21:00 08/05/19 19:54 Colace Cap* PO Not Given BID HERMAN Duloxetine HCl 60 mg 08/06/19 09:00 Cymbalta Cap* PO DAILY HERMAN Enoxaparin Sodium 40 mg 08/06/19 09:00 Lovenox(*) SUBCUT Q24H HERMAN Furosemide 20 mg 08/06/19 09:00 Lasix Tab* PO DAILY HERMAN Gabapentin 300 mg 08/05/19 21:00 08/05/19 21:01 Neurontin Cap(*) PO 300 mg 2100 HERMAN Administration Glipizide 5 mg 08/06/19 09:00 Glucotrol Xl* PO DAILY HERMAN Insulin Glargine 20 units 08/05/19 21:00 08/05/19 21:06 Lantus(*) SUBCUT 20 unit Q24H HERMAN Administration Insulin Human Lispro 0 - 12 units 08/06/19 07:30 08/06/19 07:36 Humalog* SUBCUT Not Given [facility] Protocol Magnesium Hydroxide 30 ml 08/05/19 12:17 Milk Of Magnesia Liq* PO Q6H PRN CONSTIPATION Metformin HCl 1,000 mg 08/05/19 17:00 08/05/19 18:28 Glucophage* PO 1,000 mg 0800,1700 [facility] Administration Metoprolol Succinate 50 mg 08/06/19 09:00 Toprol Xl Tab* PO DAILY [facility] Mometasone Furoate/Formoterol Fumar 2 puff 08/05/19 21:00 08/05/19 21:03 Dulera 100/5 Mdi* INH 2 puff BID HERMAN Administration Morphine Sulfate 45 mg 08/05/19 21:00 08/05/19 21:02 Ms Contin(*) PO 45 mg Q12H HERMAN Administration Nystatin 1 applic 08/05/19 21:00 08/05/19 21:03 Nystatin Top Powder* TOPICAL 1 applic BID [facility] Administration Oxycodone HCl 5 mg 08/05/19 14:09 08/06/19 04:11 Roxycodone Tab* PO 5 mg Q4H PRN Administration PAIN - SEVERE Pantoprazole Sodium 40 mg 08/06/19 09:00 Protonix Tab* PO DAILY [facility] Polyethylene Glycol/Electrolytes 17 gm 08/05/19 21:00 08/05/19 19:53 Miralax (17 Gm Dose Fransico) PO Not Given 0800,2099 [facility] Potassium Chloride 20 meq 08/06/19 09:00 Klor Con Er Tab* PO DAILY HERMAN Senna 2 tab 08/05/19 12:17 Senokot 8.6 Mg Tab* PO BEDTIME PRN CONSTIPATION Tamsulosin HCl 0.4 mg 08/06/19 21:00 Flomax Cap* PO BEDTIME [facility] Vital Signs: Vital Signs Temp Pulse Resp BP Pulse Ox 97.7 F 71 18 151/53 98 08/06/19 05:01 08/06/19 05:01 08/06/19 06:22 08/06/19 05:01 08/06/19 05:01 Lab Results: Laboratory Results - last 24 hr 08/05/19 08/06/19 08/06/19 16:55 05:38 05:38 WBC 3.5 RBC 3.35 L Hgb 9.4 L Hct 29 L MCV 86 MCH 28 MCHC 33 RDW 17 H Plt Count 166 MPV 9.2 Neut % (Auto) 68.3 Lymph % (Auto) 15.4 [place] % (Auto) 7.9 Eos % (Auto) 7.8 Baso % (Auto) 0.6 Absolute Neuts (auto) 2.4 Absolute Lymphs (auto) 0.5 L Absolute Monos (auto) 0.3 Absolute Eos (auto) 0.3 Absolute Basos (auto) 0.0 Absolute Nucleated RBC 0.0 Nucleated RBC % 0.1 Sodium 140 Potassium 3.7 Chloride 104 Carbon Dioxide 32 Anion Gap 4 BUN 17 Creatinine 0.62 L Est GFR ( Amer) 155.2 Est GFR (Non-Af Amer) 128.3 BUN/Creatinine Ratio 27.4 H Glucose 112 H POC Glucose (mg/dL) 238 H Calcium 8.4 L Total Bilirubin 1.00 AST 12 L ALT 15 Alkaline Phosphatase 87 Total Protein 4.4 L Albumin 2.5 L Globulin 1.9 L Albumin/Globulin Ratio 1.3 Exam: GEN: No acute distress. Alert and appropriate. LUNGS: decreased breath sounds consistent with COPD bilaterally. CV: irregularly irregular. ABD: + bowel sounds, soft, non-tender, non-distended EXT: Bilateral UE and LE ecchymoses. Mild edema. NEURO: CN II-XII intact. BUE motor 5/5 except 4/5 right ADM. LLE motor hip flexion 2, knee ext 2, DF 4, EHL 4. RLE motor hip flex 1, knee ext 2, DF 4, EHL 4. Impaired sensation in stocking distribution above knees. Assessment/Plan: 69yo man s/p L1-5 decompression and fusion after L3 fracture #s/p L1-5 decompression and fusion - LSO for comfort. Eliquis on hold until at least 08/10. f/u with Dr. Herbert 09/01 at 2:30p. PT/OT to mobilize. #Analgesia - Has chronic neuropathic pain and routinely on MSContin and gabapentin. Now has oxycodone prn. Wean off as tolerated. #DVT prophyllaxis - has h/o PE. Eliquis on hold until at least 08/10 due to spine surgery. On lovenox for now. #Diabetes mellitus - metformin, glipizide and lantus. Add in ssI if needed. Follow fingersticks. #COPD on home oxygen - oxygen 2L/min. Continue meds. #Paroxysmal atrial fibrillation - Eliquis on hold until at least 08/10. Lopressor/ Cardizem. #Depression/Anxiety - duloxetine. Will try to add in lorazepam 0.5mg bid prn anxiety if needed to mobilize with therapies. #Constipation - Magnesium oxide 400mg bid (can increase to tid if needed since that was home regimen). #Multiple Myeloma - f/u with Dr. Whitmore as needed. #Advanced directives - full code. Sergey Parsonson is his healthcare proxy if he cannot make decisions himself. #Estimated LOS - interdisciplinary plan of care meeting today. 08/06/19 10:38
[2019-08-06] MEDS: Polyethylene Glycol 3350* 17 GM PACKET PO SCH ×2 (10:55→20:17)
[2019-08-06] MEDS: metFORMIN* 1,000 MG TAB PO SCH ×2 (10:55→17:27)
[2019-08-06] MEDS: DULoxetine DR CAP* 60 MG CAP.DR PO SCH (10:56)
[2019-08-06] MEDS: Enoxaparin(*) 40 MG/0.4 ML SYR SUBCUT SCH (10:56)
[2019-08-06] MEDS: glipiZIDE TAB.XL* 5 MG PO SCH (10:56)
[2019-08-06] MEDS: Mometasone/Formoter 100/5 MDI INH SCH ×2 (10:56→20:25)
[2019-08-06] MEDS: Metoprolol Succinate XL TAB* 50 MG PO SCH (10:56)
[2019-08-06] MEDS: Diltiazem CD CAP* 120 MG PO SCH (10:56)
[2019-08-06] MEDS: Docusate CAP* 100 MG PO SCH ×2 (10:56→20:15)
[2019-08-06] MEDS: Cyanocobalamin TAB* 500 MCG PO SCH (10:56)
[2019-08-06] MEDS: Cholecalciferol TAB* 1000 UNITS PO SCH (10:56)
[2019-08-06] MEDS: Furosemide TAB* 20 MG PO SCH (10:56)
[2019-08-06] MEDS: Morphine TAB Extended Release (*) 15 MG TAB.ER PO SCH ×2 (10:57→20:16)
[2019-08-06] MEDS: Pantoprazole TAB * 40 MG TAB PO SCH (10:57)
[2019-08-06] MEDS: Potassium Chlor TAB* 20 MEQ TAB.ER PO SCH (10:57)
[2019-08-06] MEDS: Nystatin TOP POWDER* 15 GM BTL TOPICAL SCH ×2 (10:57→20:17)
--- NOTE | 2019-08-06 13:14 | PMRUTEAM ---
PMRU: Team Meeting Current Status: Physical Therapy: Current Status Current Rolling Status Substantial/Maximal Current Supine <-> Sit Status Dependent Current Sit <-> Stand Status Dependent Current Bed <-> Chair Status Dependent Transfer/Bed Mobility EZ Stand,SALAS Recommended Devices Current Picking Up Object Dependent Status Current Car Transfer Status Not attempted Current Ambulation Assistance Not attempted Status Current Wheelchair Propulsion Not attempted Ability Status Current Stair Climbing Status Not attempted Current Curb Assistance Status Not attempted Objective Comments Pt appears labile during session, reporting frustration and anger then crying out/becoming tearful with transfer attempts. Pt yelling, "put me back put me back! I want to walk but I can't do this today". Pt on 2L O2 at baseline. Occupational Therapy: Current Status Current Upper Body Dressing Substantial/Maximal Status Current Lower Body Dressing Dependent Status Current Footwear Status Dependent Current Bathing Status Dependent Current Grooming Status Partial/Moderate Current Toileting Status Dependent Current Toilet Transfer Status Dependent Current Eating Status Independent Nursing: Current Status Skin Deviations [Forehead] Abrasion Skin Deviations [Saad upper and Abrasion,Bruise lower extremities] Skin Deviations [Mid Back] Incision Skin Deviations [Bilateral Bruise Lower Leg] Skin Deviations [Upper Chest] Abrasion Skin Deviations [Right Upper Previous Access Point Arm] Skin Deviations [Bilateral Rash Groin] Skin Deviations [Left Medial Abrasion Knee] Skin Deviations [Right Elbow] Abrasion Skin Deviations [Lower Back] Incision Skin Deviation Description [ scabbed, healing Forehead] Skin Deviation Description [ scattered abrasions in various stages of healing Saad upper and lower scattered bruises extremities] Skin Deviation Description [ not visualized; dressing in place Mid Back] Skin Deviation Description [ extensive ecchymosis Bilateral Lower Leg] Skin Deviation Description [ scattered, healing Upper Chest] Skin Deviation Description [ PICC site Right Upper Arm] Skin Deviation Description [ nystatin ordered, applied Bilateral Groin] Skin Deviation Description [ s/p recent fall per pt Left Medial Knee] dressing in place, CDI Skin Deviation Description [ steri strips in place Lower Back] Social Work: Current Status Discharge Plan return home with home care svs and family support Potential for Family Training pt's partner is involved and supportive Anticipated Discharge Home Destination Discharge With home care svs and family support Speech: Current Status Assessment Progress is adapted to patient condition. Patient demonstrated increased signs of delirium, specifically perseveration and confabulation of recent topics with present events, after specific direction not to do so. Goals: Physical Therapy: Goals Goals to Be Accomplished in ( 14-18 Days) Goal: Rolling Assistance Independent Goal Supine <-> Sit Status Independent Goal Sit <-> Stand Status Independent Goal Bed <-> Chair Status Independent Transfer/Bed Mobility Rolling Walker Recommended Devices Goal: Picking Up Object Independent Goal: Car Transfer Status Setup or Clean-up Assist Goal: Ambulation Assistance Supervision/Touching Ambulation Assistive Devices Rolling Walker Ambulation Distance (ft) 50' Goal: Wheelchair Propulsion Independent Ability Wheelchair Distance (ft) 150' Goal: Stairs Assistance Supervision/Touching Stairs Recommended Devices Two Rails Number of Stairs 12 Goal: Curb Assistance Supervision/Touching Goal: Home Exercise Program Independent Assistance Occupational Therapy: Goals Goals to be Completed in (Days 14-18 ) Goal Upper Body Dressing Independent Routine Goal Lower Body Dressing Independent Routine Goal Footwear Status Independent Goal Bathing Routine (OT) Independent Goal Grooming Routine Independent Goal Toilet Hygiene and Independent Clothing Management Routine Goal Toilet Transfer Routine Independent Goal Functional Transfers for Independent ADL Goal Feeding Routine Independent Goal Light Housekeeping Tasks Substantial/Maximal Speech: Goals Speech Goal 1 Comprehension Goal 1 Comments Long-Term Goal: Pt will use compensatory strategies to demonstrate comprehension of complex , 2-3 part verbal and written information of moderate complexity, 90% accuracy, Independently. Status: Adapted to patient condition Short-Term Goal: Pt will use compensatory strategies to demonstrate comprehension of complex , 2-part verbal and written information, 80% accuracy, given moderate extra time, and Moderate skilled instruction and cueing. Status: Adapted to patient condition Short-Term Goal: Pt will use compensatory strategies to demonstrate comprehension of simple verbal information and one-part directions, 80% accuracy, given skilled instruction, Moderate cueing, and extra time. Status: Goal established Progress is adapted to patient condition. Patient demonstrated increased signs of delirium, specifically perseveration and confabulation of recent topics with present events, after specific direction not to do so. Speech Goal 2 Problem Solving Speech Goal 2 Evaluation Moderate Status Speech Goal 2 Comments Problem Solving Goal: Long-Term Goal: Pt will use compensatory strategies to solve moderately complex routine problems, for transfer and mobility safety, adaptive dressing, time and money management; with 100% accuracy, Independently. Status: Adapted to patient condition Problem Solving Goal: Short-Term: Pt will use compensatory strategies to solve simple routine problems, for transfer and mobility safety, adaptive dressing, time and money management; with 80% accuracy, given skilled instruction, Moderate cueing, and extra time. Status: Adapted to patient condition PT recommended that LIGHTING TECHNICIAN not rehearse verbal recall of trandsfer safety steps due to heighten anxiety about transfers at this time. LIGHTING TECHNICIAN did reinforce the need to sit upright. After patient associated personal memories to encode 4 pictures, patient increased unprompted recall after 2 minutes from 2/4 to 4/4. LIGHTING TECHNICIAN provided maximal cueing to redirect patient from creative confabulation of the other target pictures to recalling true personal memories. After his RN provided his medications and directed the patient to usehis inhaler, LIGHTING TECHNICIAN explicitly reoriented the patient to a new memory task and directed the patient "to repeat the whole story back to me *exactly* as I tell it to you" before telling a new story. The patient told a tangential story that hinged on his inhaler cannister. Social Work: Goals Discharge Plan return home with home care svs and family support Potential for Family Training pt's partner is involved and supportive Anticipated Discharge Home Destination Discharge With home care svs and family support Care Plan: Care Plan Communication-Improve/Maintain Start: 08/06/19 12:06 Freq: DAILY@0700,1900 Status: Active Target: 08/07/19 Protocol: Activity Type Activity Date Activity User E-Sign Co-Sign Detail Recorded Client Recorded Date Recorded By Document 08/06/19 12:09 [id number] 08/06/19 12:10 [id number] 08/06/19 12:09 PMRU Outcome: Communication/Cognitive Status Current Communication Outcome/Goals Other Other Communication Outcomes/Goals Long-Term Goal: Pt will use compensatory strategies to demonstrate comprehension of complex, 2-3 part verbal and written information of moderate complexity, 90% accuracy, Independently. Status: Goal established Short-Term Goal : Pt will use compensatory strategies to demonstrate comprehension of complex, 2- part verbal and written information, 80 % accuracy, given moderate extra time, and Moderate skilled instruction and cueing. Short-Term Goal : Pt will use compensatory strategies to demonstrate comprehension of simple verbal information and one-part directions, 80% accuracy, given skilled instruction, Moderate cueing , and extra time. Problem Solving Goal: Long- Term Goal: Pt will use compensatory strategies to solve moderately complex routine problems, for transfer and mobility safety , adaptive dressing, time and money management; with 100% accuracy, Independently. Problem Solving Goal: Short- Term: Pt will use compensatory strategies to solve simple routine problems, for transfer and mobility safety , adaptive dressing, time and money management; with 80% accuracy, given skilled instruction, Moderate cueing , and extra time. Progression Toward Outcomes/Goals Progressing Outcome/Goals Met Other Outcome/Goals Met Comment Progress is adapted to patient condition. Patient demonstrated increased signs of delirium, specifically perseveration and confabulation of recent topics with present events, after specific direction not to do so. PT recommended that LIGHTING TECHNICIAN not rehearse verbal recall of trandsfer sgfety steps due to heighten anxiety about transfers at this time. LIGHTING TECHNICIAN did reinforce the need to sit upright After patient associated personal memories to encode 4 pictures, patient increased unprompted recall after 2 minutes from 06/15 to 08/13. LIGHTING TECHNICIAN provided maximal cueing to redirect patient from creative confabulation of the other target pictures to recalling ture personal memories. After his RN provided his medications and directed the patient to usehis inhaler, LIGHTING TECHNICIAN explicitly reoriented the patient to a new memory task and directed the patient "to repeat the whole story back to me * exactly* as I tell it to you" before telling a new story. The patient told a tangential story that hinged on his inhaler cannister. Mobility- Improve/Maintain Start: 08/05/19 17:32 Freq: DAILY@0700,1900 Status: Active Target: 08/06/19 Protocol: Activity Type Activity Date Activity User E-Sign Co-Sign Detail Recorded Client Recorded Date Recorded By Document 08/05/19 17:32 [id number] 08/05/19 17:33 [id number] 08/05/19 17:32 PMRU Outcome: Mobility Physical Therapy Evaluation and Yes Treatment Activity OOB with Assistance Yes WBAT Yes NWB No TTWB No Device Yes Assistance Yes Patient to be seen 5x/wk for 60-120 min/ Therex day for: Mobility Training Gait Training W/C Mobility Balance Other Therapy Comment DC training/ planning Current Mobility Outcome/Goals Maintain/ Achieve Baseline Mobility Status Improve Mobility Status Demonstrates Proper Use of Assistive Devices Free from Complications of Immobility Progression Toward Outcome/Goals Goal Initiation Bed Mobility Yes: Independent Transfers Yes: Independent with RW Gait x ft Yes: 50' supervision W/C Mobility x ft Yes: 150' Independent Up/Down Stairs Yes: 12 wth 2 rails, supervision With HEP Yes: Independent Rec Therapy- Improve/Maintain Start: 08/05/19 16:58 Freq: DAILY@0700,1900 Status: Active Target: 08/10/19 Protocol: Activity Type Activity Date Activity User E-Sign Co-Sign Detail Recorded Client Recorded Date Recorded By Document 08/05/19 16:58 [id number] 08/05/19 16:58 [id number] 08/05/19 16:58 PMRU Outcome: Recreation Therapy Current Rec Ther Outcome/Goals Complete Rec Therapy Assessment Meet with Patient Regularly for Support Encourage Leisure Involvement Progression Toward Outcome/Goals Goal Initiation Safety- Improve/Maintain Start: 08/05/19 11:56 Freq: DAILY@0700,1900 Status: Active Target: 08/12/19 Protocol: Activity Type Activity Date Activity User E-Sign Co-Sign Detail Recorded Client Recorded Date Recorded By Document 08/06/19 01:13 [id number] 08/06/19 01:13 [id number] 08/06/19 01:13 PMRU Outcome: Safety Current Safety Outcome/Goals Remain Free of Injury or Harm Cooperates with Safety Measures for Least Restrictive Environment Prevent Falls/ Injury Progression Toward Outcome/Goals Goal Initiation - Interdisciplinary Staff Present Stained Glass Glazier Helper/Social Work Staff Present: OTILIO Love Nursing Staff Present: Asia Espinosa OT Staff Present: Zahra Trejo PT Staff Present: Cata Dubon LIGHTING TECHNICIAN Staff Present: Mert Arzate Medicine Note: Length of Stay: [3 weeks] Anticipated Discharge Destination: Home Tentative Discharge Date: [08/27/2019] Discharged to: [home]
[2019-08-06] MEDS: Atorvastatin* 10 MG TAB PO SCH (17:27)
[2019-08-06] MEDS: Gabapentin CAP(*) 300 MG PO SCH (20:14)
[2019-08-06] MEDS: Tamsulosin CAP* 0.4 MG PO SCH (20:17)
[2019-08-06] MEDS: Magnesium Oxide TAB* 400 MG PO SCH (20:28)
[2019-08-06] MEDS: Insulin GLARGINE(*) 1 UNITS UNIT SUBCUT SCH (20:48)
[2019-08-07] MEDS: oxyCODONE TAB* 5 MG TAB PO PRN (05:36)
[2019-08-07] MEDS ORDERED: PTO:Diclofenac 1% GEL (NF) 100 GM TUBE TOPICAL PRN (08:46)
--- NOTE | 2019-08-07 08:56 | PN ---
Progress Note Date of Service: 08/07/19 Note: KELSI BLAIR was visited. Nursing and therapy notes read and reviewed. No chest pain, shortness of breath or abdominal pain. He coughed up some brownish blood tinged phlegm this morning which is not unusual for him. Has diclofenac gel from prior hospital to use as needed on back. Current Medications: Active Medications Generic Name Dose Route Start Last Admin Trade Name Freq PRN Reason Stop Dose Admin Acetaminophen 650 mg 08/05/19 12:17 08/06/19 03:13 Tylenol Tab* PO 650 mg Q6H PRN Administration MILD PAIN or TEMP > 100.4 Albuterol/Ipratropium 1 neb 08/05/19 14:10 Duoneb (Albuterol 2.5 Mg/Ipratropium 0.5 Mg) INH Q6H PRN SOB/WHEEZING Atorvastatin Calcium 10 mg 08/05/19 17:00 08/06/19 17:27 Lipitor* PO 10 mg 1700 HERMAN Administration Cholecalciferol 2,000 units 08/06/19 09:00 08/06/19 10:56 Vitamin D Tab* PO 2,000 units DAILY HERMAN Administration Cyanocobalamin 1,000 mcg 08/06/19 09:00 08/06/19 10:56 Vitamin B12 Tab* PO 1,000 mcg DAILY HERMAN Administration Dextrose 12.5 gm 08/05/19 17:39 D50w Syringe 50 Ml* IV PUSH .FOR FS < 60 - SS PRN FS < 60 Diclofenac Sodium 1 applic 08/07/19 08:46 Voltaren 1% Gel (Nf) TOPICAL QID PRN Pain - Moderate back pain Protocol Diltiazem HCl 120 mg 08/06/19 09:00 08/06/19 10:56 Cardizem Cd Cap* PO 120 mg DAILY HERMAN Administration Docusate Sodium 100 mg 08/05/19 21:00 08/06/19 20:15 Colace Cap* PO 100 mg BID HERMAN Administration Duloxetine HCl 60 mg 08/06/19 09:00 08/06/19 10:56 Cymbalta Cap* PO 60 mg DAILY HERMAN Administration Enoxaparin Sodium 40 mg 08/06/19 09:00 08/06/19 10:56 Lovenox(*) SUBCUT 40 mg Q24H HERMAN Administration Furosemide 20 mg 08/06/19 09:00 08/06/19 10:56 Lasix Tab* PO 20 mg DAILY HERMAN Administration Gabapentin 300 mg 08/05/19 21:00 08/06/19 20:14 Neurontin Cap(*) PO 300 mg 2100 HERMAN Administration Glipizide 5 mg 08/06/19 09:00 08/06/19 10:56 Glucotrol Xl* PO 5 mg DAILY HERMAN Administration Insulin Glargine 20 units 08/05/19 21:00 08/06/19 20:48 Lantus(*) SUBCUT 20 unit Q24H HERMAN Administration Insulin Human Lispro 0 - 12 units 08/06/19 07:30 08/06/19 17:27 Humalog* SUBCUT 2 unit AC HERMAN Administration Protocol Lorazepam 0.5 mg 08/06/19 11:08 Ativan Tab(*) PO BID PRN ANXIETY Magnesium Hydroxide 30 ml 08/05/19 12:17 Milk Of Magnesia Liq* PO Q6H PRN CONSTIPATION Magnesium Oxide 400 mg 08/06/19 21:00 08/06/19 20:28 Magox 400 Tab* PO 400 mg BID HERMAN Administration Metformin HCl 1,000 mg 08/05/19 17:00 08/06/19 17:27 Glucophage* PO 1,000 mg 0800,1700 HERMAN Administration Metoprolol Succinate 50 mg 08/06/19 09:00 08/06/19 10:56 Toprol Xl Tab* PO 50 mg DAILY HERMAN Administration Mometasone Furoate/Formoterol Fumar 2 puff 08/05/19 21:00 08/06/19 20:25 Dulera 100/5 Mdi* INH 2 puff BID HERMAN Administration Morphine Sulfate 45 mg 08/05/19 21:00 08/06/19 20:16 Ms Contin(*) PO 45 mg Q12H HERMAN Administration Nystatin 1 applic 08/05/19 21:00 08/06/19 20:17 Nystatin Top Powder* TOPICAL 1 applic BID HERMAN Administration Oxycodone HCl 5 mg 08/05/19 14:09 08/07/19 05:36 Roxycodone Tab* PO 5 mg Q4H PRN Administration PAIN - SEVERE Pantoprazole Sodium 40 mg 08/06/19 09:00 08/06/19 10:57 Protonix Tab* PO 40 mg DAILY HREMAN Administration Polyethylene Glycol/Electrolytes 17 gm 08/05/19 21:00 08/06/19 20:17 Miralax (17 Gm Dose Fransico) PO 17 gm 0800,2100 HERMAN Administration Potassium Chloride 20 meq 08/06/19 09:00 08/06/19 10:57 Klor Con Er Tab* PO 20 meq DAILY HERMAN Administration Senna 2 tab 08/05/19 12:17 Senokot 8.6 Mg Tab* PO BEDTIME PRN CONSTIPATION Tamsulosin HCl 0.4 mg 08/06/19 21:00 08/06/19 20:17 Flomax Cap* PO 0.4 mg BEDTIME HERMAN Administration Vital Signs: Vital Signs Temp Pulse Resp BP Pulse Ox 97.9 F 69 18 142/59 94 08/07/19 05:25 08/07/19 05:25 08/07/19 05:36 08/07/19 05:25 08/07/19 05:25 Lab Results: Laboratory Results - last 24 hr 08/06/19 08/06/19 08/06/19 07:34 12:14 17:19 POC Glucose (mg/dL) 130 H 240 H 158 H 08/07/19 07:34 POC Glucose (mg/dL) 145 H Exam: GEN: No acute distress. Alert and appropriate. LUNGS: decreased breath sounds consistent with COPD bilaterally. CV: irregularly irregular. ABD: + bowel sounds, soft, non-tender, non-distended EXT: Bilateral UE and LE ecchymoses. Mild edema. NEURO: BUE motor 5/5 except 4/5 right ADM. LLE motor hip flexion 2, knee ext 2 , DF 4, EHL 4. RLE motor hip flex 1, knee ext 2, DF 4, EHL 4. Impaired sensation in stocking distribution to above knees right greater than left. SKIN: Incision c/d/i with steristrips falling off. Above the incision there are 2 small open areas with scant bloody drainage that was covered with telfa and tegaderm. When the dressing was removed tegaderm denuded a small area of skin. Therefore telfa reapplied with paper tape. Assessment/Plan: 69yo man s/p L1-5 decompression and fusion after L3 fracture and paraplegia with peripheral neuropathy. #s/p L1-5 decompression and fusion - LSO for comfort. Eliquis on hold until at least 08/10. f/u with Dr. Herbert 09/01 at 2:30p. Dressing changes to proximal incision daily. PT/OT to mobilize. #Analgesia - Has chronic neuropathic pain and routinely on MSContin and gabapentin. Now has oxycodone prn. Wean off as tolerated. Had topical diclofenac at [facility] and will reorder prn for back pain. #DVT prophyllaxis - has h/o PE. Eliquis on hold until at least 08/10 due to spine surgery. On lovenox for now. #Impaired cognition - working with speech therapy daily. He does not have a specific diagnosis but his partner was already managing his meds at home. #Diabetes mellitus - metformin, glipizide, lantus, sliding scale lispro. Follow fingersticks. #COPD on home oxygen - oxygen 2L/min. Continue meds. #Paroxysmal atrial fibrillation - Eliquis on hold until at least 08/10. Lopressor/ Cardizem. #Depression/Anxiety - duloxetine. Lorazepam 0.5mg bid prn anxiety if needed to mobilize with therapies. #Constipation - Magnesium oxide 400mg bid (can increase to tid if needed since that was home regimen). #Multiple Myeloma - f/u with Dr. Whitmore as needed. #Advanced directives - full code. Sergey Parsons is his healthcare proxy if he cannot make decisions himself. #Estimated LOS - 08/27/2019 08/07/19 08:56
[2019-08-07] MEDS: Cholecalciferol TAB* 1000 UNITS PO SCH (09:28)
[2019-08-07] MEDS: Polyethylene Glycol 3350* 17 GM PACKET PO SCH ×2 (09:28→21:36)
[2019-08-07] MEDS: metFORMIN* 1,000 MG TAB PO SCH ×2 (09:29→16:50)
[2019-08-07] MEDS: Potassium Chlor TAB* 20 MEQ TAB.ER PO SCH (09:29)
[2019-08-07] MEDS: DULoxetine DR CAP* 60 MG CAP.DR PO SCH (09:29)
[2019-08-07] MEDS: Magnesium Oxide TAB* 400 MG PO SCH ×2 (09:29→21:37)
[2019-08-07] MEDS: Docusate CAP* 100 MG PO SCH ×2 (09:29→21:37)
[2019-08-07] MEDS: Furosemide TAB* 20 MG PO SCH (09:29)
[2019-08-07] MEDS: Metoprolol Succinate XL TAB* 50 MG PO SCH (09:29)
[2019-08-07] MEDS: glipiZIDE TAB.XL* 5 MG PO SCH (09:29)
[2019-08-07] MEDS: Cyanocobalamin TAB* 500 MCG PO SCH (09:29)
[2019-08-07] MEDS: Diltiazem CD CAP* 120 MG PO SCH (09:29)
[2019-08-07] MEDS: Morphine TAB Extended Release (*) 15 MG TAB.ER PO SCH ×2 (09:29→21:36)
[2019-08-07] MEDS: Pantoprazole TAB * 40 MG TAB PO SCH (09:30)
[2019-08-07] MEDS: Enoxaparin(*) 40 MG/0.4 ML SYR SUBCUT SCH (09:34)
[2019-08-07] MEDS: Mometasone/Formoter 100/5 MDI INH SCH ×2 (09:34→21:43)
[2019-08-07] MEDS: Insulin LISPRO* 1 UNITS UNIT SUBCUT SCH ×3 (09:51→16:46)
[2019-08-07] MEDS: Nystatin TOP POWDER* 15 GM BTL TOPICAL SCH ×2 (09:52→21:42)
[2019-08-07] MEDS: Acetaminophen TAB* 325 MG PO PRN ×2 (14:38→23:27)
[2019-08-07] MEDS: Atorvastatin* 10 MG TAB PO SCH (16:50)
[2019-08-07] MEDS: Gabapentin CAP(*) 300 MG PO SCH (21:37)
[2019-08-07] MEDS: Tamsulosin CAP* 0.4 MG PO SCH (21:37)
[2019-08-07] MEDS: Insulin GLARGINE(*) 1 UNITS UNIT SUBCUT SCH (21:45)
[2019-08-08] MEDS: oxyCODONE TAB* 5 MG TAB PO PRN (00:59)
[2019-08-08] MEDS: Insulin LISPRO* 1 UNITS UNIT SUBCUT SCH ×3 (07:35→17:09)
--- NOTE | 2019-08-08 10:01 | PN ---
Progress Note Date of Service: 08/08/19 Note: KELSI BLAIR was visited. Nursing notes read and reviewed. Intermittently confused. He had a difficult time falling asleep last night but feels good this morning. He would like his electric shaver. No chest pain, shortness of breath or abdominal pain. Current Medications: Active Medications Generic Name Dose Route Start Last Admin Trade Name Freq PRN Reason Stop Dose Admin Acetaminophen 650 mg 08/05/19 12:17 08/07/19 23:27 Tylenol Tab* PO 650 mg Q6H PRN Administration MILD PAIN or TEMP > 100.4 Albuterol/Ipratropium 1 neb 08/05/19 14:10 Duoneb (Albuterol 2.5 Mg/Ipratropium 0.5 Mg) INH Q6H PRN SOB/WHEEZING Atorvastatin Calcium 10 mg 08/05/19 17:00 08/07/19 16:50 Lipitor* PO 10 mg 1700 HERMAN Administration Cholecalciferol 2,000 units 08/06/19 09:00 08/07/19 09:28 Vitamin D Tab* PO 2,000 units DAILY HERMAN Administration Cyanocobalamin 1,000 mcg 08/06/19 09:00 08/07/19 09:29 Vitamin B12 Tab* PO 1,000 mcg DAILY HERMAN Administration Dextrose 12.5 gm 08/05/19 17:39 D50w Syringe 50 Ml* IV PUSH .FOR FS < 60 - SS PRN FS < 60 Diclofenac Sodium 1 applic 08/07/19 08:46 08/07/19 21:41 Voltaren 1% Gel (Nf) TOPICAL 1 applic QID PRN Administration Pain - Moderate back pain Protocol Diltiazem HCl 120 mg 08/06/19 09:00 08/07/19 09:29 Cardizem Cd Cap* PO 120 mg DAILY HERMAN Administration Docusate Sodium 100 mg 08/05/19 21:00 08/07/19 21:37 Colace Cap* PO 100 mg BID HERMAN Administration Duloxetine HCl 60 mg 08/06/19 09:00 08/07/19 09:29 Cymbalta Cap* PO 60 mg DAILY HERMAN Administration Enoxaparin Sodium 40 mg 08/06/19 09:00 08/07/19 09:34 Lovenox(*) SUBCUT 40 mg Q24H HERMAN Administration Furosemide 20 mg 08/06/19 09:00 08/07/19 09:29 Lasix Tab* PO 20 mg DAILY HERMAN Administration Gabapentin 300 mg 08/05/19 21:00 08/07/19 21:37 Neurontin Cap(*) PO 300 mg 2100 HERMAN Administration Glipizide 5 mg 08/06/19 09:00 08/07/19 09:29 Glucotrol Xl* PO 5 mg DAILY HERMAN Administration Insulin Glargine 20 units 08/05/19 21:00 08/07/19 21:45 Lantus(*) SUBCUT 20 unit Q24H HERMAN Administration Insulin Human Lispro 0 - 12 units 08/06/19 07:30 08/08/19 07:35 Humalog* SUBCUT Not Given AC [facility] Protocol Lorazepam 0.5 mg 08/06/19 11:08 Ativan Tab(*) PO BID PRN ANXIETY Magnesium Hydroxide 30 ml 08/05/19 12:17 Milk Of Magnesia Liq* PO Q6H PRN CONSTIPATION Magnesium Oxide 400 mg 08/06/19 21:00 08/07/19 21:37 Magox 400 Tab* PO 400 mg BID HERMAN Administration Metformin HCl 1,000 mg 08/05/19 17:00 08/07/19 16:50 Glucophage* PO 1,000 mg 0800,1700 HERMAN Administration Metoprolol Succinate 50 mg 08/06/19 09:00 08/07/19 09:29 Toprol Xl Tab* PO 50 mg DAILY HERMAN Administration Mometasone Furoate/Formoterol Fumar 2 puff 08/05/19 21:00 08/07/19 21:43 Dulera 100/5 Mdi* INH 2 puff BID HERMAN Administration Morphine Sulfate 45 mg 08/05/19 21:00 08/07/19 21:36 Ms Contin(*) PO 45 mg Q12H HERMAN Administration Nystatin 1 applic 08/05/19 21:00 08/07/19 21:42 Nystatin Top Powder* TOPICAL 1 applic BID HERMAN Administration Oxycodone HCl 5 mg 08/05/19 14:09 08/08/19 00:59 Roxycodone Tab* PO 5 mg Q4H PRN Administration PAIN - SEVERE Pantoprazole Sodium 40 mg 08/06/19 09:00 08/07/19 09:30 Protonix Tab* PO 40 mg DAILY HERMAN Administration Polyethylene Glycol/Electrolytes 17 gm 08/05/19 21:00 08/07/19 21:36 Miralax (17 Gm Dose Fransico) PO 17 gm 0800,2100 HERMAN Administration Potassium Chloride 20 meq 08/06/19 09:00 08/07/19 09:29 Klor Con Er Tab* PO 20 meq DAILY HERMAN Administration Senna 2 tab 08/05/19 12:17 Senokot 8.6 Mg Tab* PO BEDTIME PRN CONSTIPATION Tamsulosin HCl 0.4 mg 08/06/19 21:00 08/07/19 21:37 Flomax Cap* PO 0.4 mg BEDTIME HERMAN Administration Vital Signs: Vital Signs Temp Pulse Resp BP Pulse Ox 97.9 F 70 18 128/57 94 08/08/19 06:10 08/08/19 06:10 08/08/19 06:10 08/08/19 06:10 08/08/19 06:10 Lab Results: Laboratory Results - last 24 hr 08/07/19 08/07/19 08/08/19 11:52 16:40 07:21 POC Glucose (mg/dL) 209 H 88 95 Exam: GEN: No acute distress. Alert and appropriate. LUNGS: decreased breath sounds consistent with COPD bilaterally. CV: irregularly irregular. ABD: + bowel sounds, soft, non-tender, non-distended EXT: Bilateral UE and LE ecchymoses. Mild edema. NEURO: BUE motor 5/5 except 4/5 right ADM. LLE motor hip flexion 2, knee ext 2 , DF 4, EHL 4. RLE motor hip flex 1, knee ext 2, DF 4, EHL 4. Impaired sensation in stocking distribution to above knees right greater than left. Assessment/Plan: 69yo man s/p L1-5 decompression and fusion after L3 fracture and paraplegia with peripheral neuropathy. #s/p L1-5 decompression and fusion - LSO for comfort. Eliquis on hold until at least 08/10. f/u with Dr. Herbert 09/01 at 2:30p. Dressing changes to proximal incision daily. PT/OT to mobilize. #Analgesia - Has chronic neuropathic pain and routinely on MSContin and gabapentin. Now has oxycodone prn. Wean off as tolerated. Had topical diclofenac at [facility] and will reorder prn for back pain. #DVT prophyllaxis - has h/o PE. Eliquis on hold until at least 08/10 due to spine surgery. On lovenox for now. #Impaired cognition - working with speech therapy daily. He does not have a specific diagnosis but his partner was already managing his meds at home. #Diabetes mellitus - metformin, glipizide, lantus, sliding scale lispro. Follow fingersticks. #COPD on home oxygen - oxygen 2L/min. Continue meds. #Paroxysmal atrial fibrillation - Eliquis on hold until at least 08/10. Lopressor/ Cardizem. #Depression/Anxiety - duloxetine. Lorazepam 0.5mg bid prn anxiety if needed to mobilize with therapies. #Constipation - Magnesium oxide 400mg tid (his home regimen). #Multiple Myeloma - f/u with Dr. Whitmore as needed. #Advanced directives - full code. Sergey Parsons is his healthcare proxy if he cannot make decisions himself. #Estimated LOS - 08/27/2019 08/08/19 10:00
[2019-08-08] MEDS: Polyethylene Glycol 3350* 17 GM PACKET PO SCH ×2 (10:16→19:56)
[2019-08-08] MEDS: Morphine TAB Extended Release (*) 15 MG TAB.ER PO SCH ×2 (10:17→19:58)
[2019-08-08] MEDS: Docusate CAP* 100 MG PO SCH ×2 (10:17→19:58)
[2019-08-08] MEDS: Cholecalciferol TAB* 1000 UNITS PO SCH (10:17)
[2019-08-08] MEDS: Metoprolol Succinate XL TAB* 50 MG PO SCH (10:17)
[2019-08-08] MEDS: Magnesium Oxide TAB* 400 MG PO SCH ×4 (10:18→19:58)
[2019-08-08] MEDS: Cyanocobalamin TAB* 500 MCG PO SCH (10:18)
[2019-08-08] MEDS: glipiZIDE TAB.XL* 5 MG PO SCH (10:18)
[2019-08-08] MEDS: Potassium Chlor TAB* 20 MEQ TAB.ER PO SCH (10:18)
[2019-08-08] MEDS: DULoxetine DR CAP* 60 MG CAP.DR PO SCH (10:18)
[2019-08-08] MEDS: Pantoprazole TAB * 40 MG TAB PO SCH (10:18)
[2019-08-08] MEDS: metFORMIN* 1,000 MG TAB PO SCH ×2 (10:18→17:07)
[2019-08-08] MEDS: Diltiazem CD CAP* 120 MG PO SCH (10:18)
[2019-08-08] MEDS: Furosemide TAB* 20 MG PO SCH (10:18)
[2019-08-08] MEDS: Magnesium Hydroxide LIQ* 30 ML UDC PO PRN ×2 (10:22→20:02)
[2019-08-08] MEDS: Mometasone/Formoter 100/5 MDI INH SCH ×2 (10:23→20:03)
[2019-08-08] MEDS: Enoxaparin(*) 40 MG/0.4 ML SYR SUBCUT SCH (10:23)
[2019-08-08] MEDS: Nystatin TOP POWDER* 15 GM BTL TOPICAL SCH ×2 (11:00→19:55)
[2019-08-08] MEDS: Acetaminophen TAB* 325 MG PO PRN (17:04)
[2019-08-08] MEDS: Atorvastatin* 10 MG TAB PO SCH (17:04)
[2019-08-08] MEDS: Gabapentin CAP(*) 300 MG PO SCH (19:58)
[2019-08-08] MEDS: Tamsulosin CAP* 0.4 MG PO SCH (19:58)
[2019-08-08] MEDS: Insulin GLARGINE(*) 1 UNITS UNIT SUBCUT SCH (21:41)
[2019-08-09] MEDS: Insulin LISPRO* 1 UNITS UNIT SUBCUT SCH ×3 (07:38→16:59)
[2019-08-09] MEDS: DULoxetine DR CAP* 60 MG CAP.DR PO SCH (09:41)
[2019-08-09] MEDS: Metoprolol Succinate XL TAB* 50 MG PO SCH (09:41)
[2019-08-09] MEDS: Cholecalciferol TAB* 1000 UNITS PO SCH (09:41)
[2019-08-09] MEDS: Cyanocobalamin TAB* 500 MCG PO SCH (09:42)
[2019-08-09] MEDS: Potassium Chlor TAB* 20 MEQ TAB.ER PO SCH (09:42)
[2019-08-09] MEDS: glipiZIDE TAB.XL* 5 MG PO SCH (09:42)
[2019-08-09] MEDS: metFORMIN* 1,000 MG TAB PO SCH ×2 (09:42→16:58)
[2019-08-09] MEDS: Diltiazem CD CAP* 120 MG PO SCH (09:42)
[2019-08-09] MEDS: Pantoprazole TAB * 40 MG TAB PO SCH (09:43)
[2019-08-09] MEDS: Nystatin TOP POWDER* 15 GM BTL TOPICAL SCH ×2 (09:43→20:59)
[2019-08-09] MEDS: Magnesium Oxide TAB* 400 MG PO SCH ×3 (09:43→21:00)
[2019-08-09] MEDS: Furosemide TAB* 20 MG PO SCH (09:43)
[2019-08-09] MEDS: Morphine TAB Extended Release (*) 15 MG TAB.ER PO SCH ×2 (09:45→21:00)
[2019-08-09] MEDS: Enoxaparin(*) 40 MG/0.4 ML SYR SUBCUT SCH (09:47)
[2019-08-09] MEDS: Docusate CAP* 100 MG PO SCH ×2 (09:57→21:05)
[2019-08-09] MEDS: Polyethylene Glycol 3350* 17 GM PACKET PO SCH ×2 (09:57→21:05)
[2019-08-09] MEDS: Mometasone/Formoter 100/5 MDI INH SCH ×2 (11:04→21:01)
[2019-08-09] MEDS: oxyCODONE TAB* 5 MG TAB PO PRN ×2 (13:30→23:23)
--- NOTE | 2019-08-09 16:57 | PN ---
Progress Note Date of Service: 08/09/19 Note: KELSI BLAIR was visited. Therapy notes read and reviewed. He says he is working in therapy but not accustomed to working so hard. Current Medications: Active Medications Generic Name Dose Route Start Last Admin Trade Name Freq PRN Reason Stop Dose Admin Acetaminophen 650 mg 08/05/19 12:17 08/08/19 17:04 Tylenol Tab* PO 650 mg Q6H PRN Administration MILD PAIN or TEMP > 100.4 Albuterol/Ipratropium 1 neb 08/05/19 14:10 Duoneb (Albuterol 2.5 Mg/Ipratropium 0.5 Mg) INH Q6H PRN SOB/WHEEZING Atorvastatin Calcium 10 mg 08/05/19 17:00 08/08/19 17:04 Lipitor* PO 10 mg 1700 HERMAN Administration Cholecalciferol 2,000 units 08/06/19 09:00 08/09/19 09:41 Vitamin D Tab* PO 2,000 units DAILY HERMAN Administration Cyanocobalamin 1,000 mcg 08/06/19 09:00 08/09/19 09:42 Vitamin B12 Tab* PO 1,000 mcg DAILY HERMAN Administration Dextrose 12.5 gm 08/05/19 17:39 D50w Syringe 50 Ml* IV PUSH .FOR FS < 60 - SS PRN FS < 60 Diclofenac Sodium 1 applic 08/07/19 08:46 08/07/19 21:41 Voltaren 1% Gel (Nf) TOPICAL 1 applic QID PRN Administration Pain - Moderate back pain Protocol Diltiazem HCl 120 mg 08/06/19 09:00 08/09/19 09:42 Cardizem Cd Cap* PO 120 mg DAILY HERMAN Administration Docusate Sodium 100 mg 08/05/19 21:00 08/09/19 09:57 Colace Cap* PO Not Given BID HERMAN Duloxetine HCl 60 mg 08/06/19 09:00 08/09/19 09:41 Cymbalta Cap* PO 60 mg DAILY HERMAN Administration Enoxaparin Sodium 40 mg 08/06/19 09:00 08/09/19 09:47 Lovenox(*) SUBCUT 40 mg Q24H HERMAN Administration Furosemide 20 mg 08/06/19 09:00 08/09/19 09:43 Lasix Tab* PO 20 mg DAILY HERMAN Administration Gabapentin 300 mg 08/05/19 21:00 08/08/19 19:58 Neurontin Cap(*) PO 300 mg 2100 HERMAN Administration Glipizide 5 mg 08/06/19 09:00 08/09/19 09:42 Glucotrol Xl* PO 5 mg DAILY HERMAN Administration Insulin Glargine 20 units 08/05/19 21:00 08/08/19 21:41 Lantus(*) SUBCUT 20 unit Q24H HERMAN Administration Insulin Human Lispro 0 - 12 units 08/06/19 07:30 08/09/19 13:48 Humalog* SUBCUT 1 unit AC HERMAN Administration Protocol Lorazepam 0.5 mg 08/06/19 11:08 Ativan Tab(*) PO BID PRN ANXIETY Magnesium Hydroxide 30 ml 08/05/19 12:17 08/08/19 20:02 Milk Of Magnesia Liq* PO 30 ml Q6H PRN Administration CONSTIPATION Magnesium Oxide 400 mg 08/08/19 12:00 08/09/19 13:29 Magox 400 Tab* PO 400 mg TID HERMAN Administration Metformin HCl 1,000 mg 08/05/19 17:00 08/09/19 09:42 Glucophage* PO 1,000 mg 0800,1700 HERMAN Administration Metoprolol Succinate 50 mg 08/06/19 09:00 08/09/19 09:41 Toprol Xl Tab* PO 50 mg DAILY HERMAN Administration Mometasone Furoate/Formoterol Fumar 2 puff 08/05/19 21:00 08/09/19 11:04 Dulera 100/5 Mdi* INH 2 puff BID HERMAN Administration Morphine Sulfate 45 mg 08/05/19 21:00 08/09/19 09:45 Ms Contin(*) PO 45 mg Q12H HERMAN Administration Nystatin 1 applic 08/05/19 21:00 08/09/19 09:43 Nystatin Top Powder* TOPICAL 1 applic BID HERMAN Administration Oxycodone HCl 5 mg 08/05/19 14:09 08/09/19 13:30 Roxycodone Tab* PO 5 mg Q4H PRN Administration PAIN - SEVERE Pantoprazole Sodium 40 mg 08/06/19 09:00 08/09/19 09:43 Protonix Tab* PO 40 mg DAILY HERMAN Administration Polyethylene Glycol/Electrolytes 17 gm 08/05/19 21:00 08/09/19 09:57 Miralax (17 Gm Dose Fransico) PO Not Given 0800,2100 HERMAN Potassium Chloride 20 meq 08/06/19 09:00 08/09/19 09:42 Klor Con Er Tab* PO 20 meq DAILY HERMAN Administration Senna 2 tab 08/05/19 12:17 Senokot 8.6 Mg Tab* PO BEDTIME PRN CONSTIPATION Tamsulosin HCl 0.4 mg 08/06/19 21:00 08/08/19 19:58 Flomax Cap* PO 0.4 mg BEDTIME HERMAN Administration Vital Signs: Vital Signs Temp Pulse Resp BP Pulse Ox 98.1 F 70 22 134/58 95 08/09/19 16:10 08/09/19 16:10 08/09/19 16:10 08/09/19 16:10 08/09/19 16:10 Lab Results: Laboratory Results - last 24 hr 08/08/19 08/09/19 08/09/19 16:45 07:21 12:10 POC Glucose (mg/dL) 122 H 69 L 139 H Exam: GENERAL: No acute distress. Alert and appropriate. LUNGS: decreased breath sounds consistent with COPD bilaterally. HEART: irregularly irregular. ABDOMEN: + bowel sounds, soft, non-tender, non-distended EXTREMITIES: Bilateral UE and LE ecchymoses. Mild edema. NEUROLOGIC : BUE motor 5/5 except 4/5 right ADM. LLE motor hip flexion 2, knee ext 2, DF 4, EHL 4. RLE motor hip flex 1, knee ext 2, DF 4, EHL 4. Impaired sensation in stocking distribution to above knees right greater than left. Assessment/Plan: 69yo man s/p L1-5 decompression and fusion after L3 fracture and paraplegia with peripheral neuropathy. 1. S/P L1-5 decompression and fusion - LSO for comfort. Eliquis on hold. f/u with Dr. Herbert 09/01 at 2:30p. Dressing changes to proximal incision daily. PT/ OT 2. Analgesia - Has chronic neuropathic pain and routinely on MSContin and gabapentin. Now has oxycodone prn. Topical diclofenac for back pain. 3. DVT prophyllaxis - has h/o PE. Eliquis on hold until at least 08/10 due to spine surgery. Lovenox for now. 4. Impaired cognition - working with speech therapy daily. He does not have a specific diagnosis but his partner was already managing his meds at home. 5. Diabetes mellitus - metformin, glipizide, lantus, sliding scale lispro. FS low this am, will lower Lantus. 6. COPD on home oxygen - oxygen 2L/min. Continue meds. 7. Paroxysmal atrial fibrillation - Eliquis on hold until at least 08/10. Lopressor/Cardizem. 8. Depression/Anxiety - duloxetine. Lorazepam 0.5mg bid prn anxiety if needed to mobilize with therapies. 9. Constipation - Magnesium oxide 400mg tid (his home regimen). 10. Multiple Myeloma - f/u with Dr. Whitmore as needed. 11. Advanced directives - full code. Sergey Jaqueline is his healthcare proxy if he cannot make decisions himself. 12. Estimated LOS - 08/27/2019 08/09/19 17:06
[2019-08-09] MEDS: Atorvastatin* 10 MG TAB PO SCH (16:59)
[2019-08-09] MEDS: Insulin GLARGINE(*) 1 UNITS UNIT SUBCUT SCH (20:59)
[2019-08-09] MEDS: Tamsulosin CAP* 0.4 MG PO SCH (21:00)
[2019-08-09] MEDS: Gabapentin CAP(*) 300 MG PO SCH (21:00)
[2019-08-09] MEDS: LORazepam TAB(*) 0.5 MG PO PRN (23:59)
[2019-08-10] MEDS: Insulin LISPRO* 1 UNITS UNIT SUBCUT SCH ×3 (07:15→17:10)
[2019-08-10] MEDS: Polyethylene Glycol 3350* 17 GM PACKET PO SCH ×2 (09:15→20:56)
[2019-08-10] MEDS: Docusate CAP* 100 MG PO SCH ×2 (09:16→20:56)
[2019-08-10] MEDS: Enoxaparin(*) 40 MG/0.4 ML SYR SUBCUT SCH (09:21)
[2019-08-10] MEDS: DULoxetine DR CAP* 60 MG CAP.DR PO SCH (09:23)
[2019-08-10] MEDS: Diltiazem CD CAP* 120 MG PO SCH (09:23)
[2019-08-10] MEDS: Cholecalciferol TAB* 1000 UNITS PO SCH (09:23)
[2019-08-10] MEDS: metFORMIN* 1,000 MG TAB PO SCH ×2 (09:23→17:13)
[2019-08-10] MEDS: Pantoprazole TAB * 40 MG TAB PO SCH (09:24)
[2019-08-10] MEDS: Furosemide TAB* 20 MG PO SCH (09:24)
[2019-08-10] MEDS: Magnesium Oxide TAB* 400 MG PO SCH ×3 (09:24→20:48)
[2019-08-10] MEDS: Potassium Chlor TAB* 20 MEQ TAB.ER PO SCH (09:24)
[2019-08-10] MEDS: Cyanocobalamin TAB* 500 MCG PO SCH (09:24)
[2019-08-10] MEDS: glipiZIDE TAB.XL* 5 MG PO SCH (09:24)
[2019-08-10] MEDS: Metoprolol Succinate XL TAB* 50 MG PO SCH (09:24)
[2019-08-10] MEDS: Morphine TAB Extended Release (*) 15 MG TAB.ER PO SCH ×2 (09:25→20:48)
[2019-08-10] MEDS: Mometasone/Formoter 100/5 MDI INH SCH ×2 (09:28→20:47)
[2019-08-10] MEDS: Nystatin TOP POWDER* 15 GM BTL TOPICAL SCH ×2 (10:00→20:46)
[2019-08-10] MEDS: oxyCODONE TAB* 5 MG TAB PO PRN (11:58)
--- NOTE | 2019-08-10 12:40 | PMRUTEAM ---
PMRU: Team Meeting Current Status: Physical Therapy: Current Status Current Rolling Status Substantial/Maximal Current Supine <-> Sit Status Substantial/Maximal Current Sit <-> Stand Status Dependent Current Bed <-> Chair Status Dependent Transfer/Bed Mobility EZ Stand Recommended Devices Current Picking Up Object Dependent Status Current Car Transfer Status Not attempted Current Ambulation Assistance Not attempted Status Current Wheelchair Propulsion Not attempted Ability Status Current Stair Climbing Status Not attempted Current Curb Assistance Status Not attempted Objective Comments Pt requires frequent redirection throughout session to remain on task and complete therapy activities. Pt frequently stating things like " some staff here don't like me. They don't think I' m doing well enough" and "what are they gossiping about me for?" regarding other patients/therapists in the gym area. Pt provided therapeutic listening and reassured that the staff all want to see him succeed and help him improve. Occupational Therapy: Current Status Current Upper Body Dressing Partial/Moderate Status Current Lower Body Dressing Dependent Status Current Footwear Status Dependent Current Bathing Status Dependent Bathing Progress Pt uses EZ stand to clean buttocks Current Grooming Status Partial/Moderate Current Toileting Status Dependent Current Toilet Transfer Status Dependent Current Eating Status Independent Nursing: Current Status Skin Deviations [Forehead] Abrasion Skin Deviations [Saad upper and Abrasion,Bruise lower extremities] Skin Deviations [Mid Back] Other Skin Deviations [Bilateral Bruise Lower Leg] Skin Deviations [Upper Chest] Laceration Skin Deviations [Right Upper Previous Access Point Arm] Skin Deviations [Bilateral Rash Groin] Skin Deviations [Left Medial Abrasion Knee] Skin Deviations [Right Elbow] Abrasion Skin Deviations [Lower Back] Incision Skin Deviation Description [ scabbed and healing Forehead] Skin Deviation Description [ scattered; healing Saad upper and lower extremities] Skin Deviation Description [ small open areas x2. optifoams in place. Mid Back] Skin Deviation Description [ improving Bilateral Lower Leg] Skin Deviation Description [ scattered, healing Upper Chest] Skin Deviation Description [ picc D/C compresive dresssing in place. Right Upper Arm] Skin Deviation Description [ nystatin Bilateral Groin] Skin Deviation Description [ xeroform, telfa and carol applied Left Medial Knee] Skin Deviation Description [ sweet potato disintegrator Right Elbow] Skin Deviation Description [ steri strips intact Lower Back] Bladder Current Status spills urinal Bowel Current Status bowel meds held. incontinent loose bm Nutrition Current Status appetite fair Medication Current Status needs reinforcement Rec Therapy: Current Status Summary of Assessment and Recreation Therapy assessment complete and pt is Clinical Impression aware of services. Pt was provided with word searches and is open to continued leisure visits. Treatment Goals Pt will engage in leisure activities while on the unit, as tolerated. Treatment Plan Provide Recreation Therapy services and encourage involvement. Social Work: Current Status Discharge Plan return home with home care svs and family support Potential for Family Training pt's partner is involved and supportive Anticipated Discharge Home Destination Discharge With home care svs and family support Speech: Current Status Assessment Patient is progressing slowly as expected. Patient initiated tasks by following simple to complex directions accurately for 3-4 steps or up to one minute, then confabulated instructions and acted impulsively. On selected portions the Cognitive- Linguistic Quick Test, the patient scored far below critera on 3 of 4 tasks. Goals: Physical Therapy: Goals Goals to Be Accomplished in ( 14-18 Days) Goal: Rolling Assistance Independent Goal Supine <-> Sit Status Independent Goal Sit <-> Stand Status Independent Goal Bed <-> Chair Status Independent Transfer/Bed Mobility EZ Stand Recommended Devices Goal: Picking Up Object Independent Goal: Car Transfer Status Setup or Clean-up Assist Goal: Ambulation Assistance Supervision/Touching Ambulation Assistive Devices Rolling Walker Ambulation Distance (ft) 50' Goal: Wheelchair Propulsion Independent Ability Wheelchair Distance (ft) 150' Goal: Stairs Assistance Supervision/Touching Stairs Recommended Devices Two Rails Number of Stairs 12 Goal: Curb Assistance Supervision/Touching Goal: Home Exercise Program Independent Assistance Occupational Therapy: Goals Goals to be Completed in (Days 14-18 ) Goal Upper Body Dressing Setup or Clean-up Assist Routine Goal Lower Body Dressing Partial/Moderate Routine Goal Footwear Status Partial/Moderate Goal Bathing Routine (OT) Partial/Moderate Goal Grooming Routine Setup or Clean-up Assist Goal Toilet Hygiene and Supervision/Touching Clothing Management Routine Goal Toilet Transfer Routine Supervision/Touching Goal Functional Transfers for Supervision/Touching ADL Goal Feeding Routine Independent Goal Light Housekeeping Tasks Substantial/Maximal Speech: Goals Speech Goal 1 Comprehension Goal 1 Comments Long-Term Goal: Pt will use compensatory strategies to demonstrate comprehension of complex , 2-3 part verbal and written information of moderate complexity, 90% accuracy, Independently. Status: Progressing slowly as expected Short-Term Goal: Pt will use compensatory strategies to demonstrate comprehension of complex , 2-part verbal and written information, 80% accuracy, given moderate extra time, and Moderate skilled instruction and cueing. Status: Adapted to patient condition Short-Term Goal: Pt will use compensatory strategies to demonstrate comprehension of simple verbal information and one-part directions, 80% accuracy, given skilled instruction, Moderate cueing, and extra time. Status: Progressing slowly as expected Patient demonstrated comprehension of simple to complex directions, by I'ly following directions for 3-4 steps or up to one minute. Speech Goal 2 Problem Solving Speech Goal 2 Evaluation Moderate Status Speech Goal 2 Comments Problem Solving Goal: Long-Term Goal: Pt will use compensatory strategies to solve moderately complex routine problems, for transfer and mobility safety, adaptive dressing, time and money management; with 100% accuracy, Independently. Status: Progressing slowly as expected Problem Solving Goal: Short-Term: Pt will use compensatory strategies to solve simple routine problems, for transfer and mobility safety, adaptive dressing, time and money management; with 80% accuracy, given skilled instruction, Moderate cueing, and extra time. Status: Progressing slowly as expected BRAND COMMUNICATIONS MANAGER administered four tasks selected from the Cognitive-Linguistic Quick Test: Symbol Cancellation 0/12, Age Criterion 10 (Below ) Confrontation Naming 10/10, Age Criterion 10 (Met ) Clock Drawing 4/13, Age Criterion 11 (Below) Symbol Trails 3/10, Age Criterion 6 (Below) Social Work: Goals Discharge Plan return home with home care svs and family support Potential for Family Training pt's partner is involved and supportive Anticipated Discharge Home Destination Discharge With home care svs and family support Nursing: Goals Bladder Goal independent Bowel Goal independent Nutrition Goal 100% of all meals consumed Medication Goal independent - Interdisciplinary Staff Present Sock Knitting Machine Operator/Social Work Staff Present: Millie Montalvo LMSW Nursing Staff Present: Berenice Corley RN OT Staff Present: Zahra Trejo PT Staff Present: Nam Rider Therapy Staff Present: Joya Valdez BRAND COMMUNICATIONS MANAGER Staff Present: Mert Arzate Medicine Note: Length of Stay: 2 1/2 weeks Anticipated Discharge Destination: Home Tentative Discharge Date: August 27, 2019 Discharged to: Home
[2019-08-10 13:50] LABS: Urine Appearance Clear; Urine Bilirubin Negative (Negative); Urine Blood Negative (Negative); Urine Color Yellow; Urine Glucose Negative (Negative); Urine Ketones Negative (Negative); Urine Nitrite Negative (Negative); Urine Protein Negative (Negative); Urine Specific Gravity 1.015 (1.010-1.030); Urine Urobilinogen Negative (Negative)
--- NOTE | 2019-08-10 16:36 | PN ---
Progress Note Date of Service: 08/10/19 Note: KELSI BLAIR was visited. Therapy notes read and reviewed. He was discussed in interdisciplinary team rounds. He seems to have periods of confusion which are intermittent. He had a CT scan here July 24 that did not show a new CVA but did show chronic microvascular changes, not unexpected in a diabetic. His exam does not show focal weakness. Confusion could be from pain meds. He has trouble standing in therapy. Current Medications: Active Medications Generic Name Dose Route Start Last Admin Trade Name Freq PRN Reason Stop Dose Admin Acetaminophen 650 mg 08/05/19 12:17 08/08/19 17:04 Tylenol Tab* PO 650 mg Q6H PRN Administration MILD PAIN or TEMP > 100.4 Albuterol/Ipratropium 1 neb 08/05/19 14:10 Duoneb (Albuterol 2.5 Mg/Ipratropium 0.5 Mg) INH Q6H PRN SOB/WHEEZING Atorvastatin Calcium 10 mg 08/05/19 17:00 08/09/19 16:59 Lipitor* PO 10 mg 1700 HERMAN Administration Cholecalciferol 2,000 units 08/06/19 09:00 08/10/19 09:23 Vitamin D Tab* PO 2,000 units DAILY HERMAN Administration Cyanocobalamin 1,000 mcg 08/06/19 09:00 08/10/19 09:24 Vitamin B12 Tab* PO 1,000 mcg DAILY HERMAN Administration Dextrose 12.5 gm 08/05/19 17:39 D50w Syringe 50 Ml* IV PUSH .FOR FS < 60 - SS PRN FS < 60 Diclofenac Sodium 1 applic 08/07/19 08:46 08/07/19 21:41 Voltaren 1% Gel (Nf) TOPICAL 1 applic QID PRN Administration Pain - Moderate back pain Protocol Diltiazem HCl 120 mg 08/06/19 09:00 08/10/19 09:23 Cardizem Cd Cap* PO 120 mg DAILY HERMAN Administration Docusate Sodium 100 mg 08/05/19 21:00 08/10/19 09:16 Colace Cap* PO Not Given BID HERMAN Duloxetine HCl 60 mg 08/06/19 09:00 08/10/19 09:23 Cymbalta Cap* PO 60 mg DAILY HERMAN Administration Enoxaparin Sodium 40 mg 08/06/19 09:00 08/10/19 09:21 Lovenox(*) SUBCUT 40 mg Q24H HERMAN Administration Furosemide 20 mg 08/06/19 09:00 08/10/19 09:24 Lasix Tab* PO 20 mg DAILY HERMAN Administration Gabapentin 300 mg 08/05/19 21:00 08/09/19 21:00 Neurontin Cap(*) PO 300 mg 2100 HERMAN Administration Glipizide 5 mg 08/06/19 09:00 08/10/19 09:24 Glucotrol Xl* PO 5 mg DAILY HERMAN Administration Insulin Glargine 14 units 08/09/19 21:00 08/09/19 20:59 Lantus(*) SUBCUT 14 unit Q24H HERMAN Administration Insulin Human Lispro 0 - 12 units 08/06/19 07:30 08/10/19 11:50 Humalog* SUBCUT Not Given AC [facility] Protocol Lorazepam 0.5 mg 08/06/19 11:08 08/09/19 23:59 Ativan Tab(*) PO 0.5 mg BID PRN Administration ANXIETY Magnesium Hydroxide 30 ml 08/05/19 12:17 08/08/19 20:02 Milk Of Magnesia Liq* PO 30 ml Q6H PRN Administration CONSTIPATION Magnesium Oxide 400 mg 08/08/19 12:00 08/10/19 14:00 Magox 400 Tab* PO 400 mg TID HERMAN Administration Metformin HCl 1,000 mg 08/05/19 17:00 08/10/19 09:23 Glucophage* PO 1,000 mg 0800,1700 HERMAN Administration Metoprolol Succinate 50 mg 08/06/19 09:00 08/10/19 09:24 Toprol Xl Tab* PO 50 mg DAILY HERMAN Administration Mometasone Furoate/Formoterol Fumar 2 puff 08/05/19 21:00 08/10/19 09:28 Dulera 100/5 Mdi* INH 2 puff BID HERMAN Administration Morphine Sulfate 45 mg 08/05/19 21:00 08/10/19 09:25 Ms Contin(*) PO 45 mg Q12H HERMAN Administration Nystatin 1 applic 08/05/19 21:00 08/10/19 10:00 Nystatin Top Powder* TOPICAL Not Given BID HERMAN Oxycodone HCl 5 mg 08/05/19 14:09 08/10/19 11:58 Roxycodone Tab* PO 5 mg Q4H PRN Administration PAIN - SEVERE Pantoprazole Sodium 40 mg 08/06/19 09:00 08/10/19 09:24 Protonix Tab* PO 40 mg DAILY HERMAN Administration Polyethylene Glycol/Electrolytes 17 gm 08/05/19 21:00 08/10/19 09:15 Miralax (17 Gm Dose Fransico) PO Not Given 0800,2100 HERMAN Potassium Chloride 20 meq 08/06/19 09:00 08/10/19 09:24 Klor Con Er Tab* PO 20 meq DAILY HERMAN Administration Senna 2 tab 08/05/19 12:17 Senokot 8.6 Mg Tab* PO BEDTIME PRN CONSTIPATION Tamsulosin HCl 0.4 mg 08/06/19 21:00 08/09/19 21:00 Flomax Cap* PO 0.4 mg BEDTIME HERMAN Administration Vital Signs: Vital Signs Temp Pulse Resp BP Pulse Ox 98.6 F 70 20 119/48 97 08/10/19 16:15 08/10/19 16:15 08/10/19 16:15 08/10/19 16:15 08/10/19 16:15 Lab Results: Laboratory Results - last 24 hr 08/10/19 13:14 Urine Color Yellow Urine Appearance Clear Urine pH 5.0 Ur Specific [place] 1.015 Urine Protein Negative Urine Ketones Negative Urine Blood Negative Urine Nitrate Negative Urine Bilirubin Negative Urine Urobilinogen Negative Ur Leukocyte Esterase Negative Urine Glucose Negative Exam: GENERAL: No acute distress. Alert and appropriate. LUNGS: decreased breath sounds consistent with COPD bilaterally. HEART: irregularly irregular. ABDOMEN: + bowel sounds, soft, non-tender, non-distended EXTREMITIES: Bilateral UE and LE ecchymoses. Mild edema. NEUROLOGIC : BUE motor 5/5 except 4/5 right ADM. LLE motor hip flexion 2, knee ext 2, DF 4, EHL 4. RLE motor hip flex 1, knee ext 2, DF 4, EHL 4. Impaired sensation in stocking distribution to above knees right greater than left. Assessment/Plan: 69yo man s/p L1-5 decompression and fusion after L3 fracture and paraplegia with peripheral neuropathy. 1. S/P L1-5 decompression and fusion: LSO for comfort. Eliquis on hold. f/u with Dr. Herbert 09/01 at 2:30p. Dressing changes to proximal incision daily. PT/ OT 2. Analgesia: Has chronic neuropathic pain and routinely on MSContin and gabapentin. Now has oxycodone prn. Topical diclofenac for back pain. 3. DVT prophylaxis: has h/o PE. Eliquis on hold until at least 08/10 due to spine surgery. Lovenox for now. 4. Impaired cognition: working with speech therapy daily. CT from mid July showed atrophy c/w microvascular changes. May cut back MS Contin 5. Diabetes mellitus: metformin, glipizide, lantus, sliding scale lispro. FS better this am. 6. COPD on home oxygen: oxygen 2L/min. Continue meds. 7. Paroxysmal atrial fibrillation: Eliquis on hold until at least 08/10. Lopressor /Cardizem. 8. Depression/Anxiety: duloxetine. Lorazepam 0.5mg bid prn anxiety if needed to mobilize with therapies. 9. Constipation: Magnesium oxide 400mg tid (his home regimen). 10. Multiple Myeloma: f/u with Dr. Whitmore as needed. 11. Advanced directives: full code. Sergey Dickenstison is his healthcare proxy if he cannot make decisions himself. 12. Estimated LOS - 08/27/2019 08/10/19 16:37 08/10/19 16:42
[2019-08-10] MEDS: Atorvastatin* 10 MG TAB PO SCH (17:13)
[2019-08-10] MEDS: Insulin GLARGINE(*) 1 UNITS UNIT SUBCUT SCH (20:47)
[2019-08-10] MEDS: Tamsulosin CAP* 0.4 MG PO SCH (20:48)
[2019-08-10] MEDS: Gabapentin CAP(*) 300 MG PO SCH (20:48)
[2019-08-11] MEDS: oxyCODONE TAB* 5 MG TAB PO PRN ×2 (01:13→23:21)
[2019-08-11] MEDS: Insulin LISPRO* 1 UNITS UNIT SUBCUT SCH ×3 (07:15→16:31)
[2019-08-11] MEDS: Polyethylene Glycol 3350* 17 GM PACKET PO SCH ×2 (08:56→20:40)
[2019-08-11] MEDS: Docusate CAP* 100 MG PO SCH ×2 (08:57→20:39)
[2019-08-11] MEDS: Enoxaparin(*) 40 MG/0.4 ML SYR SUBCUT SCH (09:00)
[2019-08-11] MEDS: Nystatin TOP POWDER* 15 GM BTL TOPICAL SCH ×2 (09:00→20:47)
[2019-08-11] MEDS: Pantoprazole TAB * 40 MG TAB PO SCH (09:01)
[2019-08-11] MEDS: Metoprolol Succinate XL TAB* 50 MG PO SCH (09:01)
[2019-08-11] MEDS: DULoxetine DR CAP* 60 MG CAP.DR PO SCH (09:02)
[2019-08-11] MEDS: Furosemide TAB* 20 MG PO SCH (09:02)
[2019-08-11] MEDS: Potassium Chlor TAB* 20 MEQ TAB.ER PO SCH (09:02)
[2019-08-11] MEDS: Diltiazem CD CAP* 120 MG PO SCH (09:02)
[2019-08-11] MEDS: glipiZIDE TAB.XL* 5 MG PO SCH (09:02)
[2019-08-11] MEDS: Magnesium Oxide TAB* 400 MG PO SCH ×3 (09:02→20:43)
[2019-08-11] MEDS: Mometasone/Formoter 100/5 MDI INH SCH ×2 (09:02→20:46)
[2019-08-11] MEDS: metFORMIN* 1,000 MG TAB PO SCH ×2 (09:02→16:58)
[2019-08-11] MEDS: Cholecalciferol TAB* 1000 UNITS PO SCH (09:02)
[2019-08-11] MEDS: Cyanocobalamin TAB* 500 MCG PO SCH (09:02)
[2019-08-11] MEDS: Morphine TAB Extended Release (*) 15 MG TAB.ER PO SCH ×2 (09:03→20:43)
[2019-08-11] MEDS: Atorvastatin* 10 MG TAB PO SCH (16:58)
--- NOTE | 2019-08-11 19:38 | PN ---
Progress Note Date of Service: 08/11/19 Note: KELSI BLAIR was visited. Therapy notes read and reviewed. I spoke with his Sergey. He has been confused since he came to the ER in mid July. He had a CT of his brain that did not show evidence of a CVA, did show atrophy c/w microvascular disease. I wonder if the MS Contin may be playing a role. Will try to cut back. Current Medications: Active Medications Generic Name Dose Route Start Last Admin Trade Name Freq PRN Reason Stop Dose Admin Acetaminophen 650 mg 08/05/19 12:17 08/08/19 17:04 Tylenol Tab* PO 650 mg Q6H PRN Administration MILD PAIN or TEMP > 100.4 Albuterol/Ipratropium 1 neb 08/05/19 14:10 Duoneb (Albuterol 2.5 Mg/Ipratropium 0.5 Mg) INH Q6H PRN SOB/WHEEZING Atorvastatin Calcium 10 mg 08/05/19 17:00 08/11/19 16:58 Lipitor* PO 10 mg 1700 HERMAN Administration Cholecalciferol 2,000 units 08/06/19 09:00 08/11/19 09:02 Vitamin D Tab* PO 2,000 units DAILY HERMAN Administration Cyanocobalamin 1,000 mcg 08/06/19 09:00 08/11/19 09:02 Vitamin B12 Tab* PO 1,000 mcg DAILY HERMAN Administration Dextrose 12.5 gm 08/05/19 17:39 D50w Syringe 50 Ml* IV PUSH .FOR FS < 60 - SS PRN FS < 60 Diclofenac Sodium 1 applic 08/07/19 08:46 08/07/19 21:41 Voltaren 1% Gel (Nf) TOPICAL 1 applic QID PRN Administration Pain - Moderate back pain Protocol Diltiazem HCl 120 mg 08/06/19 09:00 08/11/19 09:02 Cardizem Cd Cap* PO 120 mg DAILY HERMAN Administration Docusate Sodium 100 mg 08/05/19 21:00 08/11/19 08:57 Colace Cap* PO Not Given BID HERMAN Duloxetine HCl 60 mg 08/06/19 09:00 08/11/19 09:02 Cymbalta Cap* PO 60 mg DAILY HERMAN Administration Enoxaparin Sodium 40 mg 08/06/19 09:00 08/11/19 09:00 Lovenox(*) SUBCUT 40 mg Q24H HERMAN Administration Furosemide 20 mg 08/06/19 09:00 08/11/19 09:02 Lasix Tab* PO 20 mg DAILY HERMAN Administration Gabapentin 300 mg 08/05/19 21:00 08/10/19 20:48 Neurontin Cap(*) PO 300 mg 2100 HERMAN Administration Glipizide 5 mg 08/06/19 09:00 08/11/19 09:02 Glucotrol Xl* PO 5 mg DAILY HERMAN Administration Insulin Glargine 14 units 08/09/19 21:00 08/10/19 20:47 Lantus(*) SUBCUT 14 unit Q24H HERMAN Administration Insulin Human Lispro 0 - 12 units 08/06/19 07:30 08/11/19 16:31 Humalog* SUBCUT Not Given AC [facility] Protocol Lorazepam 0.5 mg 08/06/19 11:08 08/09/19 23:59 Ativan Tab(*) PO 0.5 mg BID PRN Administration ANXIETY Magnesium Hydroxide 30 ml 08/05/19 12:17 08/08/19 20:02 Milk Of Magnesia Liq* PO 30 ml Q6H PRN Administration CONSTIPATION Magnesium Oxide 400 mg 08/08/19 12:00 08/11/19 12:37 Magox 400 Tab* PO 400 mg TID HERMAN Administration Metformin HCl 1,000 mg 08/05/19 17:00 08/11/19 16:58 Glucophage* PO 1,000 mg 0800,1700 HERMAN Administration Metoprolol Succinate 50 mg 08/06/19 09:00 08/11/19 09:01 Toprol Xl Tab* PO 50 mg DAILY HERMAN Administration Mometasone Furoate/Formoterol Fumar 2 puff 08/05/19 21:00 08/11/19 09:02 Dulera 100/5 Mdi* INH 2 puff BID HERMAN Administration Morphine Sulfate 30 mg 08/11/19 21:00 Ms Contin(*) PO Q12H HERMAN Nystatin 1 applic 08/05/19 21:00 08/11/19 09:00 Nystatin Top Powder* TOPICAL Not Given BID [facility] Oxycodone HCl 5 mg 08/05/19 14:09 08/11/19 01:13 Roxycodone Tab* PO 5 mg Q4H PRN Administration PAIN - SEVERE Pantoprazole Sodium 40 mg 08/06/19 09:00 08/11/19 09:01 Protonix Tab* PO 40 mg DAILY HERMAN Administration Polyethylene Glycol/Electrolytes 17 gm 08/05/19 21:00 08/11/19 08:56 Miralax (17 Gm Dose Fransico) PO Not Given 0800,2099 [facility] Potassium Chloride 20 meq 08/06/19 09:00 08/11/19 09:02 Klor Con Er Tab* PO 20 meq DAILY HERMAN Administration Senna 2 tab 08/05/19 12:17 Senokot 8.6 Mg Tab* PO BEDTIME PRN CONSTIPATION Tamsulosin HCl 0.4 mg 08/06/19 21:00 08/10/19 20:48 Flomax Cap* PO 0.4 mg BEDTIME HERMAN Administration Vital Signs: Vital Signs Temp Pulse Resp BP Pulse Ox 98.0 F 72 16 121/54 98 08/11/19 15:05 08/11/19 15:05 08/11/19 15:05 08/11/19 15:05 08/11/19 17:48 Exam: GENERAL: No acute distress. Alert and appropriate. LUNGS: decreased breath sounds consistent with COPD bilaterally. HEART: irregularly irregular. ABDOMEN: + bowel sounds, soft, non-tender, non-distended EXTREMITIES: Bilateral UE and LE ecchymoses. Mild edema. NEUROLOGIC : BUE motor 5/5 except 4/5 right ADM. LLE motor hip flexion 2, knee ext 2, DF 4, EHL 4. RLE motor hip flex 1, knee ext 2, DF 4, EHL 4. Impaired sensation in stocking distribution to above knees right greater than left. Assessment/Plan: 69yo man s/p L1-5 decompression and fusion after L3 fracture and paraplegia with peripheral neuropathy. 1. S/P L1-5 decompression and fusion: LSO for comfort. Eliquis on hold. f/u with Dr. Herbert 09/01 at 2:30p. Dressing changes to proximal incision daily. PT/ OT 2. Analgesia: Has chronic neuropathic pain and routinely on MSContin and gabapentin. Now has oxycodone prn. Topical diclofenac for back pain. 3. DVT prophylaxis: has h/o PE. Eliquis on hold due to spine surgery. Lovenox. 4. Impaired cognition: working with speech therapy daily. CT from mid July showed atrophy c/w microvascular changes. May cut back MS Contin 5. Diabetes mellitus: metformin, glipizide, lantus, sliding scale lispro. FS better this am. 6. COPD on home oxygen: oxygen 2L/min. Continue meds. 7. Paroxysmal atrial fibrillation: Eliquis on hold until at least 08/10. Lopressor /Cardizem. 8. Depression/Anxiety: duloxetine. Lorazepam 0.5mg bid prn anxiety if needed to mobilize with therapies. 9. Constipation: Magnesium oxide 400mg tid (his home regimen). 10. Multiple Myeloma: f/u with Dr. Whitmore as needed. 11. Advanced directives: full code. Sergey Parsons is his healthcare proxy if he cannot make decisions himself. 12. Estimated LOS - 08/27/2019 08/11/19 19:39
[2019-08-11] MEDS: Gabapentin CAP(*) 300 MG PO SCH (20:43)
[2019-08-11] MEDS: Tamsulosin CAP* 0.4 MG PO SCH (20:43)
[2019-08-11] MEDS: Insulin GLARGINE(*) 1 UNITS UNIT SUBCUT SCH (20:44)
[2019-08-12] MEDS: Insulin LISPRO* 1 UNITS UNIT SUBCUT SCH ×3 (07:30→16:30)
[2019-08-12] MEDS: Enoxaparin(*) 40 MG/0.4 ML SYR SUBCUT SCH (10:27)
[2019-08-12] MEDS: DULoxetine DR CAP* 60 MG CAP.DR PO SCH (10:28)
[2019-08-12] MEDS: Cyanocobalamin TAB* 500 MCG PO SCH (10:28)
[2019-08-12] MEDS: Cholecalciferol TAB* 1000 UNITS PO SCH (10:28)
[2019-08-12] MEDS: Furosemide TAB* 20 MG PO SCH (10:29)
[2019-08-12] MEDS: Morphine TAB Extended Release (*) 15 MG TAB.ER PO SCH ×2 (10:29→21:00)
[2019-08-12] MEDS: Diltiazem CD CAP* 120 MG PO SCH (10:29)
[2019-08-12] MEDS: Potassium Chlor TAB* 20 MEQ TAB.ER PO SCH (10:29)
[2019-08-12] MEDS: Metoprolol Succinate XL TAB* 50 MG PO SCH (10:29)
[2019-08-12] MEDS: Pantoprazole TAB * 40 MG TAB PO SCH (10:29)
[2019-08-12] MEDS: metFORMIN* 1,000 MG TAB PO SCH ×2 (10:29→17:00)
[2019-08-12] MEDS: glipiZIDE TAB.XL* 5 MG PO SCH (10:29)
[2019-08-12] MEDS: Magnesium Oxide TAB* 400 MG PO SCH ×3 (10:29→21:00)
[2019-08-12] MEDS: Mometasone/Formoter 100/5 MDI INH SCH ×2 (10:32→21:01)
[2019-08-12] MEDS: Polyethylene Glycol 3350* 17 GM PACKET PO SCH ×2 (10:35→21:07)
[2019-08-12] MEDS: Docusate CAP* 100 MG PO SCH ×2 (10:36→20:52)
[2019-08-12] MEDS: Nystatin TOP POWDER* 15 GM BTL TOPICAL SCH ×2 (10:41→21:01)
--- NOTE | 2019-08-12 16:50 | PN ---
Progress Note Date of Service: 08/12/19 Note: KELSI BLAIR was visited. Therapy notes read and reviewed. This morning, while working with occupational therapy, his knees buckled and he was lowered to the ground on his knees. There was no apparent injury, but required a Kay lift to get up off the floor. His memory is not great, tapering off opioids to see if his mentation clears. Current Medications: Active Medications Generic Name Dose Route Start Last Admin Trade Name Freq PRN Reason Stop Dose Admin Acetaminophen 650 mg 08/05/19 12:17 08/08/19 17:04 Tylenol Tab* PO 650 mg Q6H PRN Administration MILD PAIN or TEMP > 100.4 Albuterol/Ipratropium 1 neb 08/05/19 14:10 Duoneb (Albuterol 2.5 Mg/Ipratropium 0.5 Mg) INH Q6H PRN SOB/WHEEZING Atorvastatin Calcium 10 mg 08/05/19 17:00 08/11/19 16:58 Lipitor* PO 10 mg 1700 HERMAN Administration Cholecalciferol 2,000 units 08/06/19 09:00 08/12/19 10:28 Vitamin D Tab* PO 2,000 units DAILY HERMAN Administration Cyanocobalamin 1,000 mcg 08/06/19 09:00 08/12/19 10:28 Vitamin B12 Tab* PO 1,000 mcg DAILY HERMAN Administration Dextrose 12.5 gm 08/05/19 17:39 D50w Syringe 50 Ml* IV PUSH .FOR FS < 60 - SS PRN FS < 60 Diclofenac Sodium 1 applic 08/07/19 08:46 08/07/19 21:41 Voltaren 1% Gel (Nf) TOPICAL 1 applic QID PRN Administration Pain - Moderate back pain Protocol Diltiazem HCl 120 mg 08/06/19 09:00 08/12/19 10:29 Cardizem Cd Cap* PO 120 mg DAILY HERMAN Administration Docusate Sodium 100 mg 08/05/19 21:00 08/12/19 10:36 Colace Cap* PO Not Given BID HERMAN Duloxetine HCl 60 mg 08/06/19 09:00 08/12/19 10:28 Cymbalta Cap* PO 60 mg DAILY HERMAN Administration Enoxaparin Sodium 40 mg 08/06/19 09:00 08/12/19 10:27 Lovenox(*) SUBCUT 40 mg Q24H HERMAN Administration Furosemide 20 mg 08/06/19 09:00 08/12/19 10:29 Lasix Tab* PO 20 mg DAILY HERMAN Administration Gabapentin 300 mg 08/05/19 21:00 08/11/19 20:43 Neurontin Cap(*) PO 300 mg 2100 HERMAN Administration Glipizide 5 mg 08/06/19 09:00 08/12/19 10:29 Glucotrol Xl* PO 5 mg DAILY HERMAN Administration Insulin Glargine 14 units 08/09/19 21:00 08/11/19 20:44 Lantus(*) SUBCUT 14 unit Q24H HERMAN Administration Insulin Human Lispro 0 - 12 units 08/06/19 07:30 08/12/19 16:30 Humalog* SUBCUT Not Given [facility] Protocol Lorazepam 0.5 mg 08/06/19 11:08 08/09/19 23:59 Ativan Tab(*) PO 0.5 mg BID PRN Administration ANXIETY Magnesium Hydroxide 30 ml 08/05/19 12:17 08/08/19 20:02 Milk Of Magnesia Liq* PO 30 ml Q6H PRN Administration CONSTIPATION Magnesium Oxide 400 mg 08/08/19 12:00 08/12/19 15:52 Magox 400 Tab* PO 400 mg TID HERMAN Administration Metformin HCl 1,000 mg 08/05/19 17:00 08/12/19 10:29 Glucophage* PO 1,000 mg 0800,1700 HERMAN Administration Metoprolol Succinate 50 mg 08/06/19 09:00 08/12/19 10:29 Toprol Xl Tab* PO 50 mg DAILY HERMAN Administration Mometasone Furoate/Formoterol Fumar 2 puff 08/05/19 21:00 08/12/19 10:32 Dulera 100/5 Mdi* INH 2 puff BID HERMAN Administration Morphine Sulfate 30 mg 08/11/19 21:00 08/12/19 10:29 Ms Contin(*) PO 30 mg Q12H HERMAN Administration Nystatin 1 applic 08/05/19 21:00 08/12/19 10:41 Nystatin Top Powder* TOPICAL 1 applic BID HERMAN Administration Pantoprazole Sodium 40 mg 08/06/19 09:00 08/12/19 10:29 Protonix Tab* PO 40 mg DAILY HERMAN Administration Polyethylene Glycol/Electrolytes 17 gm 08/05/19 21:00 08/12/19 10:35 Miralax (17 Gm Dose Fransico) PO Not Given 0800,2100 HERMAN Potassium Chloride 20 meq 08/06/19 09:00 08/12/19 10:29 Klor Con Er Tab* PO 20 meq DAILY HERMAN Administration Senna 2 tab 08/05/19 12:17 Senokot 8.6 Mg Tab* PO BEDTIME PRN CONSTIPATION Tamsulosin HCl 0.4 mg 08/06/19 21:00 08/11/19 20:43 Flomax Cap* PO 0.4 mg BEDTIME HERMAN Administration Vital Signs: Vital Signs Temp Pulse Resp BP Pulse Ox 98.7 F 75 22 119/55 99 08/12/19 16:04 08/12/19 16:04 08/12/19 16:04 08/12/19 16:04 08/12/19 16:04 Lab Results: Laboratory Results - last 24 hr 08/11/19 08/11/19 08/11/19 07:19 12:11 16:29 POC Glucose (mg/dL) 82 131 H 115 H 08/12/19 07:20 POC Glucose (mg/dL) 105 H Exam: GENERAL: No acute distress. Alert and appropriate. LUNGS: decreased breath sounds consistent with COPD bilaterally. HEART: irregularly irregular. ABDOMEN: + bowel sounds, soft, non-tender, non-distended EXTREMITIES: Bilateral UE and LE ecchymoses. Mild edema. NEUROLOGIC : BUE motor 5/5 except 4/5 right ADM. LLE motor hip flexion 2, knee ext 2, DF 4, EHL 4. RLE motor hip flex 1, knee ext 2, DF 4, EHL 4. Impaired sensation in stocking distribution to above knees right greater than left. Assessment/Plan: 69yo man s/p L1-5 decompression and fusion after L3 fracture and paraplegia with peripheral neuropathy. 1. S/P L1-5 decompression and fusion: LSO for comfort. Eliquis on hold. f/u with Dr. Herbert 09/01 at 2:30p. Dressing changes to proximal incision daily. PT/ OT 2. Analgesia: Has chronic neuropathic pain and routinely on MSContin and gabapentin. Now has oxycodone prn. Topical diclofenac for back pain. 3. DVT prophylaxis: has h/o PE. Eliquis on hold due to spine surgery. Lovenox. 4. Impaired cognition: working with speech therapy daily. CT from mid July showed atrophy c/w microvascular changes. cutting back MS Contin 5. Diabetes mellitus: metformin, glipizide, lantus, sliding scale lispro. FS better this am. 6. COPD on home oxygen: oxygen 2L/min. Continue meds. 7. Paroxysmal atrial fibrillation: Eliquis on hold until at least 08/10. Lopressor /Cardizem. 8. Depression/Anxiety: duloxetine. Lorazepam 0.5mg bid prn anxiety if needed to mobilize with therapies. 9. Constipation: Magnesium oxide 400mg tid (his home regimen). 10. Multiple Myeloma: f/u with Dr. Whitmore as needed. 11. Advanced directives: full code. Sergey Parsons is his healthcare proxy if he cannot make decisions himself. 12. Estimated LOS - 08/27/2019 08/12/19 16:51
[2019-08-12] MEDS: Atorvastatin* 10 MG TAB PO SCH (17:00)
[2019-08-12] MEDS: Insulin GLARGINE(*) 1 UNITS UNIT SUBCUT SCH (20:59)
[2019-08-12] MEDS: Gabapentin CAP(*) 300 MG PO SCH (20:59)
[2019-08-12] MEDS: Tamsulosin CAP* 0.4 MG PO SCH (21:00)
[2019-08-12] MEDS: Acetaminophen TAB* 325 MG PO PRN (23:35)
[2019-08-13 05:25] LABS: ABS Eosinophils 0.2 10^3/ul (0-0.6); ABS Monocytes 0.4 10^3/ul (0-0.8); ABS Neutrophils 1.6 10^3/ul (1.5-7.7); Eosinophil % 5.4 %; Hematocrit 30 % (42-52); Hemoglobin 9.6 g/dL (14.0-18.0); Lymphocyte % 30.9 %; Mean Corpuscular HGB Conc 33 g/dL (31-36); Mean Corpuscular Hemoglobin 28 pg (27-31); Mean Corpuscular Volume 86 fL (80-94); Mean Platelet Volume 8.9 fL (7.4-10.4); Nucleated Red Blood Cells % 0.3; Platelet Count 195 10^3/uL (150-450); Red Blood Count 3.44 10^6 /uL (4.18-5.48); Red Cell Distribution Width 18 % (10-15); White Blood Count 3.2 10^3/uL (3.5-10.8)
[2019-08-13 05:41] LABS: Albumin 2.7 g/dL (3.2-5.2); Albumin/Globulin Ratio 1.4 (1-3); BUN/Creatinine Ratio 20.8 (8-20); Calcium 8.5 mg/dL (8.6-10.3); EGFR African American 120.9 (>60); EGFR Non-African American 99.9 (>60); Globulin 1.9 g/dL (2-4); Potassium 3.7 mmol/L (3.5-5.0); Total Bilirubin 0.9 mg/dL (0.2-1.0); Total Protein 4.6 g/dL (6.4-8.9)
[2019-08-13] MEDS: Insulin LISPRO* 1 UNITS UNIT SUBCUT SCH ×3 (09:38→17:19)
[2019-08-13] MEDS: Diltiazem CD CAP* 120 MG PO SCH (09:56)
[2019-08-13] MEDS: metFORMIN* 1,000 MG TAB PO SCH ×2 (09:56→17:16)
[2019-08-13] MEDS: Cyanocobalamin TAB* 500 MCG PO SCH (09:56)
[2019-08-13] MEDS: Cholecalciferol TAB* 1000 UNITS PO SCH (09:56)
[2019-08-13] MEDS: Polyethylene Glycol 3350* 17 GM PACKET PO SCH ×2 (09:56→21:23)
[2019-08-13] MEDS: Enoxaparin(*) 40 MG/0.4 ML SYR SUBCUT SCH (09:57)
[2019-08-13] MEDS: Furosemide TAB* 20 MG PO SCH (09:57)
[2019-08-13] MEDS: Docusate CAP* 100 MG PO SCH ×2 (09:57→20:22)
[2019-08-13] MEDS: Metoprolol Succinate XL TAB* 50 MG PO SCH (09:58)
[2019-08-13] MEDS: Magnesium Oxide TAB* 400 MG PO SCH ×3 (09:58→20:22)
[2019-08-13] MEDS: Morphine TAB Extended Release (*) 15 MG TAB.ER PO SCH ×2 (09:58→20:22)
[2019-08-13] MEDS: glipiZIDE TAB.XL* 5 MG PO SCH (09:58)
[2019-08-13] MEDS: DULoxetine DR CAP* 60 MG CAP.DR PO SCH (09:58)
[2019-08-13] MEDS: Mometasone/Formoter 100/5 MDI INH SCH ×2 (09:58→20:25)
[2019-08-13] MEDS: Nystatin TOP POWDER* 15 GM BTL TOPICAL SCH ×2 (09:59→21:22)
[2019-08-13] MEDS: Potassium Chlor TAB* 20 MEQ TAB.ER PO SCH (09:59)
[2019-08-13] MEDS: Pantoprazole TAB * 40 MG TAB PO SCH (09:59)
--- NOTE | 2019-08-13 15:53 | PN ---
Progress Note Date of Service: 08/13/19 Note: KELSI BLAIR was visited. Therapy notes read and reviewed. He was confused again today and he is tapering off his morphine. On Friday, we plan to make MS Contin PRN Current Medications: Active Medications Generic Name Dose Route Start Last Admin Trade Name Freq PRN Reason Stop Dose Admin Acetaminophen 650 mg 08/05/19 12:17 08/12/19 23:35 Tylenol Tab* PO 650 mg Q6H PRN Administration MILD PAIN or TEMP > 100.4 Albuterol/Ipratropium 1 neb 08/05/19 14:10 Duoneb (Albuterol 2.5 Mg/Ipratropium 0.5 Mg) INH Q6H PRN SOB/WHEEZING Atorvastatin Calcium 10 mg 08/05/19 17:00 08/12/19 17:00 Lipitor* PO 10 mg 1700 HERMAN Administration Cholecalciferol 2,000 units 08/06/19 09:00 08/13/19 09:56 Vitamin D Tab* PO 2,000 units DAILY HERMAN Administration Cyanocobalamin 1,000 mcg 08/06/19 09:00 08/13/19 09:56 Vitamin B12 Tab* PO 1,000 mcg DAILY HERMAN Administration Dextrose 12.5 gm 08/05/19 17:39 D50w Syringe 50 Ml* IV PUSH .FOR FS < 60 - SS PRN FS < 60 Diclofenac Sodium 1 applic 08/07/19 08:46 08/07/19 21:41 Voltaren 1% Gel (Nf) TOPICAL 1 applic QID PRN Administration Pain - Moderate back pain Protocol Diltiazem HCl 120 mg 08/06/19 09:00 08/13/19 09:56 Cardizem Cd Cap* PO 120 mg DAILY HERMAN Administration Docusate Sodium 100 mg 08/05/19 21:00 08/13/19 09:57 Colace Cap* PO Not Given BID HERMAN Duloxetine HCl 60 mg 08/06/19 09:00 08/13/19 09:58 Cymbalta Cap* PO 60 mg DAILY HERMAN Administration Enoxaparin Sodium 40 mg 08/06/19 09:00 08/13/19 09:57 Lovenox(*) SUBCUT 40 mg Q24H HERMAN Administration Furosemide 20 mg 08/06/19 09:00 08/13/19 09:57 Lasix Tab* PO 20 mg DAILY HERMAN Administration Gabapentin 300 mg 08/05/19 21:00 08/12/19 20:59 Neurontin Cap(*) PO 300 mg 2100 HERMAN Administration Glipizide 5 mg 08/06/19 09:00 08/13/19 09:58 Glucotrol Xl* PO 5 mg DAILY HERMAN Administration Insulin Glargine 14 units 08/09/19 21:00 08/12/19 20:59 Lantus(*) SUBCUT 14 unit Q24H HERMAN Administration Insulin Human Lispro 0 - 12 units 08/06/19 07:30 08/13/19 14:28 Humalog* SUBCUT 2 unit AC HERMAN Administration Protocol Lorazepam 0.5 mg 08/06/19 11:08 08/09/19 23:59 Ativan Tab(*) PO 0.5 mg BID PRN Administration ANXIETY Magnesium Hydroxide 30 ml 08/05/19 12:17 08/08/19 20:02 Milk Of Magnesia Liq* PO 30 ml Q6H PRN Administration CONSTIPATION Magnesium Oxide 400 mg 08/08/19 12:00 08/13/19 14:28 Magox 400 Tab* PO 400 mg TID HERMAN Administration Metformin HCl 1,000 mg 08/05/19 17:00 08/13/19 09:56 Glucophage* PO 1,000 mg 0800,1700 HERMAN Administration Metoprolol Succinate 50 mg 08/06/19 09:00 08/13/19 09:58 Toprol Xl Tab* PO 50 mg DAILY HERMAN Administration Mometasone Furoate/Formoterol Fumar 2 puff 08/05/19 21:00 08/13/19 09:58 Dulera 100/5 Mdi* INH 2 puff BID HERMAN Administration Morphine Sulfate 15 mg 08/13/19 21:00 Ms Contin(*) PO Q12H [facility] Nystatin 1 applic 08/05/19 21:00 08/13/19 09:59 Nystatin Top Powder* TOPICAL 1 applic BID HERMAN Administration Pantoprazole Sodium 40 mg 08/06/19 09:00 08/13/19 09:59 Protonix Tab* PO 40 mg DAILY HERMAN Administration Polyethylene Glycol/Electrolytes 17 gm 08/05/19 21:00 08/13/19 09:56 Miralax (17 Gm Dose Fransico) PO Not Given 0800,2099 [facility] Potassium Chloride 20 meq 08/06/19 09:00 08/13/19 09:59 Klor Con Er Tab* PO 20 meq DAILY HERMAN Administration Senna 2 tab 08/05/19 12:17 Senokot 8.6 Mg Tab* PO BEDTIME PRN CONSTIPATION Tamsulosin HCl 0.4 mg 08/06/19 21:00 08/12/19 21:00 Flomax Cap* PO 0.4 mg BEDTIME HERMAN Administration Vital Signs: Vital Signs Temp Pulse Resp BP Pulse Ox 97.6 F 71 14 125/55 96 08/13/19 05:00 08/13/19 05:00 08/13/19 13:23 08/13/19 05:00 08/13/19 08:00 Lab Results: Laboratory Results - last 24 hr 08/12/19 08/12/19 08/13/19 12:05 16:25 05:05 WBC 3.2 L RBC 3.44 L Hgb 9.6 L Hct 30 L MCV 86 MCH 28 MCHC 33 RDW 18 H Plt Count 195 MPV 8.9 Neut % (Auto) 49.9 Lymph % (Auto) 30.9 [place] % (Auto) 13.1 Eos % (Auto) 5.4 Baso % (Auto) 0.7 Absolute Neuts (auto) 1.6 Absolute Lymphs (auto) 1.0 Absolute Monos (auto) 0.4 Absolute Eos (auto) 0.2 Absolute Basos (auto) 0.0 Absolute Nucleated RBC 0.0 Nucleated RBC % 0.3 Sodium Potassium Chloride Carbon Dioxide Anion Gap BUN Creatinine Est GFR ( Amer) Est GFR (Non-Af Amer) BUN/Creatinine Ratio Glucose POC Glucose (mg/dL) 128 H 107 H Calcium Total Bilirubin AST ALT Alkaline Phosphatase Total Protein Albumin Globulin Albumin/Globulin Ratio 08/13/19 08/13/19 05:05 06:29 WBC RBC Hgb Hct MCV MCH MCHC RDW Plt Count MPV Neut % (Auto) Lymph % (Auto) [place] % (Auto) Eos % (Auto) Baso % (Auto) Absolute Neuts (auto) Absolute Lymphs (auto) Absolute Monos (auto) Absolute Eos (auto) Absolute Basos (auto) Absolute Nucleated RBC Nucleated RBC % Sodium 141 Potassium 3.7 Chloride 104 Carbon Dioxide 33 H Anion Gap 4 BUN 16 Creatinine 0.77 Est GFR ( Amer) 120.9 Est GFR (Non-Af Amer) 99.9 BUN/Creatinine Ratio 20.8 H Glucose 49 L* POC Glucose (mg/dL) 134 H Calcium 8.5 L Total Bilirubin 0.90 AST 13 ALT 12 Alkaline Phosphatase 115 H Total Protein 4.6 L Albumin 2.7 L Globulin 1.9 L Albumin/Globulin Ratio 1.4 Exam: GENERAL: No acute distress. Alert and appropriate. LUNGS: decreased breath sounds consistent with COPD bilaterally. HEART: irregularly irregular. ABDOMEN: + bowel sounds, soft, non-tender, non-distended EXTREMITIES: Bilateral UE and LE ecchymoses. Mild edema. NEUROLOGIC : BUE motor 5/5 except 4/5 right ADM. LLE motor hip flexion 2, knee ext 2, DF 4, EHL 4. RLE motor hip flex 1, knee ext 2, DF 4, EHL 4. Impaired sensation in stocking distribution to above knees right greater than left. Assessment/Plan: 69yo man s/p L1-5 decompression and fusion after L3 fracture and paraplegia with peripheral neuropathy. 1. S/P L1-5 decompression and fusion: LSO for comfort. Eliquis on hold. f/u with Dr. Herbert 09/01 at 2:30p. Dressing changes to proximal incision daily. PT/ OT 2. Analgesia: Has chronic neuropathic pain and routinely on tapering MSContin and gabapentin. Now has oxycodone prn. Topical diclofenac for back pain. 3. DVT prophylaxis: has h/o PE. Eliquis on hold due to spine surgery. Lovenox. 4. Impaired cognition: working with speech therapy daily. CT from mid July showed atrophy c/w microvascular changes. cutting back MS Contin 5. Diabetes mellitus: metformin, glipizide, lantus, sliding scale lispro. FS better this am. 6. COPD on home oxygen: oxygen 2L/min. Continue meds. 7. Paroxysmal atrial fibrillation: Eliquis on hold, plan to restart Friday. Lopressor/Cardizem. 8. Depression/Anxiety: duloxetine. Lorazepam 0.5mg bid prn anxiety if needed to mobilize with therapies. 9. Constipation: Magnesium oxide 400mg tid (his home regimen). 10. Multiple Myeloma: f/u with Dr. Whitmore as needed. 11. Advanced directives: full code. Sergey Parsons is his healthcare proxy if he cannot make decisions himself. 12. Estimated LOS - 08/27/2019 08/13/19 15:54
[2019-08-13] MEDS: Atorvastatin* 10 MG TAB PO SCH (17:16)
[2019-08-13] MEDS: Tamsulosin CAP* 0.4 MG PO SCH (20:22)
[2019-08-13] MEDS: Gabapentin CAP(*) 300 MG PO SCH (20:23)
[2019-08-13] MEDS: Insulin GLARGINE(*) 1 UNITS UNIT SUBCUT SCH (21:23)
[2019-08-14] MEDS: Insulin LISPRO* 1 UNITS UNIT SUBCUT SCH ×3 (08:45→17:05)
[2019-08-14] MEDS: Polyethylene Glycol 3350* 17 GM PACKET PO SCH ×2 (08:45→20:56)
[2019-08-14] MEDS: Metoprolol Succinate XL TAB* 50 MG PO SCH (08:46)
[2019-08-14] MEDS: Diltiazem CD CAP* 120 MG PO SCH (08:46)
[2019-08-14] MEDS: glipiZIDE TAB.XL* 5 MG PO SCH (08:46)
[2019-08-14] MEDS: Enoxaparin(*) 40 MG/0.4 ML SYR SUBCUT SCH (08:46)
[2019-08-14] MEDS: Furosemide TAB* 20 MG PO SCH (08:47)
[2019-08-14] MEDS: Cyanocobalamin TAB* 500 MCG PO SCH (08:47)
[2019-08-14] MEDS: Docusate CAP* 100 MG PO SCH ×2 (08:47→20:56)
[2019-08-14] MEDS: Cholecalciferol TAB* 1000 UNITS PO SCH (08:47)
[2019-08-14] MEDS: DULoxetine DR CAP* 60 MG CAP.DR PO SCH (08:48)
[2019-08-14] MEDS: metFORMIN* 1,000 MG TAB PO SCH ×2 (08:48→17:05)
[2019-08-14] MEDS: Magnesium Oxide TAB* 400 MG PO SCH ×3 (08:48→20:56)
[2019-08-14] MEDS: Pantoprazole TAB * 40 MG TAB PO SCH (08:48)
[2019-08-14] MEDS: Mometasone/Formoter 100/5 MDI INH SCH ×2 (08:48→20:56)
[2019-08-14] MEDS: Potassium Chlor TAB* 20 MEQ TAB.ER PO SCH (08:48)
[2019-08-14] MEDS: Morphine TAB Extended Release (*) 15 MG TAB.ER PO SCH ×2 (09:00→20:56)
[2019-08-14] MEDS: Nystatin TOP POWDER* 15 GM BTL TOPICAL SCH ×2 (09:01→20:56)
[2019-08-14] MEDS: Atorvastatin* 10 MG TAB PO SCH (17:05)
--- NOTE | 2019-08-14 18:18 | PN ---
Progress Note Date of Service: 08/14/19 Note: KELSI BLAIR was visited. Nursing notes read and reviewed. He seems a little clearer after his Morphine dose was lowered to 15. Speaking to his , Sergey, he does not usually take this routinely and it is usually PRN Current Medications: Active Medications Generic Name Dose Route Start Last Admin Trade Name Freq PRN Reason Stop Dose Admin Acetaminophen 650 mg 08/05/19 12:17 08/12/19 23:35 Tylenol Tab* PO 650 mg Q6H PRN Administration MILD PAIN or TEMP > 100.4 Albuterol/Ipratropium 1 neb 08/05/19 14:10 Duoneb (Albuterol 2.5 Mg/Ipratropium 0.5 Mg) INH Q6H PRN SOB/WHEEZING Atorvastatin Calcium 10 mg 08/05/19 17:00 08/14/19 17:05 Lipitor* PO 10 mg 1700 HERMAN Administration Cholecalciferol 2,000 units 08/06/19 09:00 08/14/19 08:47 Vitamin D Tab* PO 2,000 units DAILY HERMAN Administration Cyanocobalamin 1,000 mcg 08/06/19 09:00 08/14/19 08:47 Vitamin B12 Tab* PO 1,000 mcg DAILY HERMAN Administration Dextrose 12.5 gm 08/05/19 17:39 D50w Syringe 50 Ml* IV PUSH .FOR FS < 60 - SS PRN FS < 60 Diclofenac Sodium 1 applic 08/07/19 08:46 08/07/19 21:41 Voltaren 1% Gel (Nf) TOPICAL 1 applic QID PRN Administration Pain - Moderate back pain Protocol Diltiazem HCl 120 mg 08/06/19 09:00 08/14/19 08:46 Cardizem Cd Cap* PO 120 mg DAILY HERMAN Administration Docusate Sodium 100 mg 08/05/19 21:00 08/14/19 08:47 Colace Cap* PO 100 mg BID HERMAN Administration Duloxetine HCl 60 mg 08/06/19 09:00 08/14/19 08:48 Cymbalta Cap* PO 60 mg DAILY HERMAN Administration Enoxaparin Sodium 40 mg 08/06/19 09:00 08/14/19 08:46 Lovenox(*) SUBCUT 40 mg Q24H [facility]MAN Administration Furosemide 20 mg 08/06/19 09:00 08/14/19 08:47 Lasix Tab* PO 20 mg DAILY HERMAN Administration Gabapentin 300 mg 08/05/19 21:00 08/13/19 20:23 Neurontin Cap(*) PO 300 mg 2100 HERMAN Administration Glipizide 5 mg 08/06/19 09:00 08/14/19 08:46 Glucotrol Xl* PO 5 mg DAILY HERMAN Administration Insulin Human Lispro 0 - 12 units 08/06/19 07:30 08/14/19 17:05 Humalog* SUBCUT Not Given [facility] Protocol Lorazepam 0.5 mg 08/06/19 11:08 08/09/19 23:59 Ativan Tab(*) PO 0.5 mg BID PRN Administration ANXIETY Magnesium Hydroxide 30 ml 08/05/19 12:17 08/08/19 20:02 Milk Of Magnesia Liq* PO 30 ml Q6H PRN Administration CONSTIPATION Magnesium Oxide 400 mg 08/08/19 12:00 08/14/19 16:05 Magox 400 Tab* PO 400 mg TID HERMAN Administration Metformin HCl 1,000 mg 08/05/19 17:00 08/14/19 17:05 Glucophage* PO 1,000 mg 0800,1700 HERMAN Administration Metoprolol Succinate 50 mg 08/06/19 09:00 08/14/19 08:46 Toprol Xl Tab* PO 50 mg DAILY HERMAN Administration Mometasone Furoate/Formoterol Fumar 2 puff 08/05/19 21:00 08/14/19 08:48 Dulera 100/5 Mdi* INH 2 puff BID HERMAN Administration Morphine Sulfate 15 mg 08/13/19 21:00 08/14/19 09:00 Ms Contin(*) PO 08/15/19 12:00 15 mg Q12H HERMAN Administration Morphine Sulfate 30 mg 08/15/19 21:00 Ms Contin(*) PO Q12H PRN PAIN - SEVERE Nystatin 1 applic 08/05/19 21:00 08/14/19 09:01 Nystatin Top Powder* TOPICAL 1 applic BID HERMAN Administration Pantoprazole Sodium 40 mg 08/06/19 09:00 08/14/19 08:48 Protonix Tab* PO 40 mg DAILY HERMAN Administration Polyethylene Glycol/Electrolytes 17 gm 08/05/19 21:00 08/14/19 08:45 Miralax (17 Gm Dose Fransico) PO 17 gm 0800,2100 HERMAN Administration Potassium Chloride 20 meq 08/06/19 09:00 08/14/19 08:48 Klor Con Er Tab* PO 20 meq DAILY HERMAN Administration Senna 2 tab 08/05/19 12:17 Senokot 8.6 Mg Tab* PO BEDTIME PRN CONSTIPATION Tamsulosin HCl 0.4 mg 08/06/19 21:00 08/13/19 20:22 Flomax Cap* PO 0.4 mg BEDTIME HERMAN Administration Vital Signs: Vital Signs Temp Pulse Resp BP Pulse Ox 98 F 70 20 128/55 97 08/14/19 06:36 08/14/19 06:36 08/14/19 12:11 08/14/19 06:36 08/14/19 08:00 Lab Results: Laboratory Results - last 24 hr 08/14/19 08/14/19 07:56 12:05 POC Glucose (mg/dL) 104 H 128 H Exam: GENERAL: No acute distress. Alert and appropriate. LUNGS: decreased breath sounds consistent with COPD bilaterally. HEART: irregularly irregular. ABDOMEN: + bowel sounds, soft, non-tender, non-distended EXTREMITIES: Bilateral UE and LE ecchymoses. Mild edema. NEUROLOGIC : BUE motor 5/5 except 4/5 right ADM. LLE motor hip flexion 2, knee ext 2, DF 4, EHL 4. RLE motor hip flex 1, knee ext 2, DF 4, EHL 4. Impaired sensation in stocking distribution to above knees right greater than left. BACK: wound healing but draining at bottom of wound. Assessment/Plan: 69yo man s/p L1-5 decompression and fusion after L3 fracture and paraplegia with peripheral neuropathy. 1. S/P L1-5 decompression and fusion: LSO for comfort. Eliquis to resume Friday. f/u with Dr. Herbert 09/01 at 2:30p. Dressing changes to proximal incision daily. PT/OT 2. Analgesia: Has chronic neuropathic pain and routinely on tapering MSContin and gabapentin. Now has oxycodone prn. Topical diclofenac for back pain. 3. DVT prophylaxis: has h/o PE. Eliquis to resume Friday. Lovenox. 4. Impaired cognition: working with speech therapy daily. CT from mid July showed atrophy c/w microvascular changes. cutting back MS Contin 5. Diabetes mellitus: metformin, glipizide sliding scale lispro. Lantus no longer needed. 6. COPD on home oxygen: oxygen 2L/min. Continue meds. 7. Paroxysmal atrial fibrillation: Eliquis on hold, plan to restart Friday. Lopressor/Cardizem. 8. Depression/Anxiety: duloxetine. Lorazepam 0.5mg bid prn anxiety if needed to mobilize with therapies. 9. Constipation: Magnesium oxide 400mg tid (his home regimen). 10. Multiple Myeloma: f/u with Dr. Whitmore as needed. 11. Advanced directives: full code. Sergey Parsons is his healthcare proxy if he cannot make decisions himself. 12. Estimated LOS - 08/27/2019 08/14/19 18:18
[2019-08-14] MEDS: Tamsulosin CAP* 0.4 MG PO SCH (20:56)
[2019-08-14] MEDS: Gabapentin CAP(*) 300 MG PO SCH (20:56)
[2019-08-15] MEDS: metFORMIN* 1,000 MG TAB PO SCH ×2 (07:56→16:44)
[2019-08-15] MEDS: Polyethylene Glycol 3350* 17 GM PACKET PO SCH ×2 (07:56→20:51)
[2019-08-15] MEDS: Insulin LISPRO* 1 UNITS UNIT SUBCUT SCH ×3 (07:56→16:41)
[2019-08-15] MEDS: Morphine TAB Extended Release (*) 15 MG TAB.ER PO SCH (08:13)
[2019-08-15] MEDS: Furosemide TAB* 20 MG PO SCH (10:23)
[2019-08-15] MEDS: Enoxaparin(*) 40 MG/0.4 ML SYR SUBCUT SCH (10:23)
[2019-08-15] MEDS: glipiZIDE TAB.XL* 5 MG PO SCH (10:23)
[2019-08-15] MEDS: Potassium Chlor TAB* 20 MEQ TAB.ER PO SCH (10:24)
[2019-08-15] MEDS: Docusate CAP* 100 MG PO SCH ×2 (10:24→20:51)
[2019-08-15] MEDS: Cyanocobalamin TAB* 500 MCG PO SCH (10:24)
[2019-08-15] MEDS: Diltiazem CD CAP* 120 MG PO SCH (10:24)
[2019-08-15] MEDS: Metoprolol Succinate XL TAB* 50 MG PO SCH (10:24)
[2019-08-15] MEDS: Cholecalciferol TAB* 1000 UNITS PO SCH (10:24)
[2019-08-15] MEDS: DULoxetine DR CAP* 60 MG CAP.DR PO SCH (10:24)
[2019-08-15] MEDS: Magnesium Oxide TAB* 400 MG PO SCH ×3 (10:24→20:51)
[2019-08-15] MEDS: Pantoprazole TAB * 40 MG TAB PO SCH (10:24)
[2019-08-15] MEDS: Mometasone/Formoter 100/5 MDI INH SCH ×2 (10:25→20:51)
[2019-08-15] MEDS: Nystatin TOP POWDER* 15 GM BTL TOPICAL SCH ×2 (10:25→20:51)
[2019-08-15] MEDS: Atorvastatin* 10 MG TAB PO SCH (16:44)
--- NOTE | 2019-08-15 17:24 | PN ---
Progress Note Date of Service: 08/15/19 Note: KELSI BALIR was visited. Nursing notes read and reviewed. More oriented and is now off routine MS Contin. He is not sure he can do the work to make it home Current Medications: Active Medications Generic Name Dose Route Start Last Admin Trade Name Freq PRN Reason Stop Dose Admin Acetaminophen 650 mg 08/05/19 12:17 08/12/19 23:35 Tylenol Tab* PO 650 mg Q6H PRN Administration MILD PAIN or TEMP > 100.4 Albuterol/Ipratropium 1 neb 08/05/19 14:10 Duoneb (Albuterol 2.5 Mg/Ipratropium 0.5 Mg) INH Q6H PRN SOB/WHEEZING Atorvastatin Calcium 10 mg 08/05/19 17:00 08/15/19 16:44 Lipitor* PO 10 mg 1700 HERMAN Administration Cholecalciferol 2,000 units 08/06/19 09:00 08/15/19 10:24 Vitamin D Tab* PO 2,000 units DAILY HERMAN Administration Cyanocobalamin 1,000 mcg 08/06/19 09:00 08/15/19 10:24 Vitamin B12 Tab* PO 1,000 mcg DAILY HERMAN Administration Dextrose 12.5 gm 08/05/19 17:39 D50w Syringe 50 Ml* IV PUSH .FOR FS < 60 - SS PRN FS < 60 Diclofenac Sodium 1 applic 08/07/19 08:46 08/07/19 21:41 Voltaren 1% Gel (Nf) TOPICAL 1 applic QID PRN Administration Pain - Moderate back pain Protocol Diltiazem HCl 120 mg 08/06/19 09:00 08/15/19 10:24 Cardizem Cd Cap* PO 120 mg DAILY HERMAN Administration Docusate Sodium 100 mg 08/05/19 21:00 08/15/19 10:24 Colace Cap* PO 100 mg BID HERMAN Administration Duloxetine HCl 60 mg 08/06/19 09:00 08/15/19 10:24 Cymbalta Cap* PO 60 mg DAILY HERMAN Administration Enoxaparin Sodium 40 mg 08/06/19 09:00 08/15/19 10:23 Lovenox(*) SUBCUT 40 mg Q24H [facility] Administration Furosemide 20 mg 08/06/19 09:00 08/15/19 10:23 Lasix Tab* PO 20 mg DAILY HERMAN Administration Gabapentin 300 mg 08/05/19 21:00 08/14/19 20:56 Neurontin Cap(*) PO 300 mg 2100 HERMAN Administration Glipizide 5 mg 08/06/19 09:00 08/15/19 10:23 Glucotrol Xl* PO 5 mg DAILY HERMAN Administration Insulin Human Lispro 0 - 12 units 08/06/19 07:30 08/15/19 16:41 Humalog* SUBCUT Not Given AC [facility] Protocol Lorazepam 0.5 mg 08/06/19 11:08 08/09/19 23:59 Ativan Tab(*) PO 0.5 mg BID PRN Administration ANXIETY Magnesium Hydroxide 30 ml 08/05/19 12:17 08/08/19 20:02 Milk Of Magnesia Liq* PO 30 ml Q6H PRN Administration CONSTIPATION Magnesium Oxide 400 mg 08/08/19 12:00 08/15/19 14:50 Magox 400 Tab* PO 400 mg TID HERMAN Administration Metformin HCl 1,000 mg 08/05/19 17:00 08/15/19 16:44 Glucophage* PO 1,000 mg 0800,1700 [facility] Administration Metoprolol Succinate 50 mg 08/06/19 09:00 08/15/19 10:24 Toprol Xl Tab* PO 50 mg DAILY HERMAN Administration Mometasone Furoate/Formoterol Fumar 2 puff 08/05/19 21:00 08/15/19 10:25 Dulera 100/5 Mdi* INH 2 puff BID HERMAN Administration Morphine Sulfate 15 mg 08/15/19 21:00 Ms Contin(*) PO Q12H PRN PAIN - SEVERE Nystatin 1 applic 08/05/19 21:00 08/15/19 10:25 Nystatin Top Powder* TOPICAL 1 applic BID HERMAN Administration Pantoprazole Sodium 40 mg 08/06/19 09:00 08/15/19 10:24 Protonix Tab* PO 40 mg DAILY [facility] Administration Polyethylene Glycol/Electrolytes 17 gm 08/05/19 21:00 08/15/19 07:56 Miralax (17 Gm Dose Fransico) PO 17 gm 0800,2100 [facility] Administration Potassium Chloride 20 meq 08/06/19 09:00 08/15/19 10:24 Klor Con Er Tab* PO 20 meq DAILY HERMAN Administration Senna 2 tab 08/05/19 12:17 Senokot 8.6 Mg Tab* PO BEDTIME PRN CONSTIPATION Tamsulosin HCl 0.4 mg 08/06/19 21:00 08/14/19 20:56 Flomax Cap* PO 0.4 mg BEDTIME HERMAN Administration Vital Signs: Vital Signs Temp Pulse Resp BP Pulse Ox 97.5 F 70 22 146/64 98 08/15/19 05:09 08/15/19 05:09 08/15/19 10:15 08/15/19 05:09 08/15/19 08:00 Lab Results: Laboratory Results - last 24 hr 08/14/19 08/15/19 16:42 07:54 POC Glucose (mg/dL) 123 H 117 H Exam: GENERAL: No acute distress. Alert and appropriate. LUNGS: decreased breath sounds consistent with COPD bilaterally. HEART: irregularly irregular. ABDOMEN: + bowel sounds, soft, non-tender, non-distended EXTREMITIES: Bilateral UE and LE ecchymoses. Mild edema. NEUROLOGIC : BUE motor 5/5 except 4/5 right ADM. LLE motor hip flexion 2, knee ext 2, DF 4, EHL 4. RLE motor hip flex 1, knee ext 2, DF 4, EHL 4. Impaired sensation in stocking distribution to above knees right greater than left. BACK: wound healing but draining at bottom of wound. Assessment/Plan: 69yo man s/p L1-5 decompression and fusion after L3 fracture and paraplegia with peripheral neuropathy. 1. S/P L1-5 decompression and fusion: LSO for comfort. Eliquis to resume Friday. f/u with Dr. Herbert 09/01 at 2:30p. Dressing changes to proximal incision daily. PT/OT 2. Analgesia: Has chronic neuropathic pain and routinely on tapering MSContin and gabapentin. Now has oxycodone prn. Topical diclofenac for back pain. 3. DVT prophylaxis: has h/o PE. Eliquis to resume Friday. Lovenox. 4. Impaired cognition: working with speech therapy daily. CT from mid July showed atrophy c/w microvascular changes. cutting back MS Contin 5. Diabetes mellitus: metformin, glipizide sliding scale lispro. Lantus no longer needed. 6. COPD on home oxygen: oxygen 2L/min. Continue meds. 7. Paroxysmal atrial fibrillation: Eliquis on hold, plan to restart Friday. Lopressor/Cardizem. 8. Depression/Anxiety: duloxetine. Lorazepam 0.5mg bid prn anxiety if needed to mobilize with therapies. 9. Constipation: Magnesium oxide 400mg tid (his home regimen). 10. Multiple Myeloma: f/u with Dr. Whitmore as needed. 11. Advanced directives: full code. Sergey Parsons is his healthcare proxy if he cannot make decisions himself. 12. Estimated LOS - 08/27/2019 08/15/19 17:24
[2019-08-15] MEDS: Tamsulosin CAP* 0.4 MG PO SCH (20:51)
[2019-08-15] MEDS: Gabapentin CAP(*) 300 MG PO SCH (20:51)
[2019-08-15] MEDS ORDERED: Morphine TAB Extended Release (*) 15 MG TAB.ER PO PRN (21:00)
[2019-08-15] MEDS ORDERED: Morphine TAB Extended Release (*) 30 MG TAB.ER PO PRN (21:00)
[2019-08-16] MEDS: Acetaminophen TAB* 325 MG PO PRN (00:53)
[2019-08-16] MEDS: Insulin LISPRO* 1 UNITS UNIT SUBCUT SCH ×3 (07:30→16:28)
[2019-08-16] MEDS: Apixaban* 5 MG TAB PO SCH ×2 (09:10→21:17)
[2019-08-16] MEDS: Diltiazem CD CAP* 120 MG PO SCH (09:10)
[2019-08-16] MEDS: Cyanocobalamin TAB* 500 MCG PO SCH (09:10)
[2019-08-16] MEDS: Cholecalciferol TAB* 1000 UNITS PO SCH (09:10)
[2019-08-16] MEDS: DULoxetine DR CAP* 60 MG CAP.DR PO SCH (09:10)
[2019-08-16] MEDS: metFORMIN* 1,000 MG TAB PO SCH ×2 (09:10→16:51)
[2019-08-16] MEDS: Potassium Chlor TAB* 20 MEQ TAB.ER PO SCH (09:11)
[2019-08-16] MEDS: glipiZIDE TAB.XL* 5 MG PO SCH (09:11)
[2019-08-16] MEDS: Magnesium Oxide TAB* 400 MG PO SCH ×2 (09:11→13:48)
[2019-08-16] MEDS: Furosemide TAB* 20 MG PO SCH (09:11)
[2019-08-16] MEDS: Polyethylene Glycol 3350* 17 GM PACKET PO SCH (09:11)
[2019-08-16] MEDS: Pantoprazole TAB * 40 MG TAB PO SCH (09:11)
[2019-08-16] MEDS: Metoprolol Succinate XL TAB* 50 MG PO SCH (09:11)
[2019-08-16] MEDS: Docusate CAP* 100 MG PO SCH (09:11)
[2019-08-16] MEDS: Mometasone/Formoter 100/5 MDI INH SCH ×2 (09:13→21:20)
[2019-08-16] MEDS: Nystatin TOP POWDER* 15 GM BTL TOPICAL SCH ×2 (09:18→21:17)
[2019-08-16] MEDS ORDERED: Docusate CAP* 100 MG PO PRN (12:29)
[2019-08-16] MEDS: Atorvastatin* 10 MG TAB PO SCH (16:51)
[2019-08-16] MEDS ORDERED: Polyethylene Glycol 3350* 17 GM PACKET PO PRN (16:57)
--- NOTE | 2019-08-16 17:02 | PN ---
Progress Note Date of Service: 08/16/19 Note: KELSI BLAIR was visited. Therapy notes read and reviewed. Kelsi is still having trouble standing and making functional gains. He also has been having trouble with loose stools. He is on MagOx three times a day, and MiraLax BID and Colace BID are ordered, though these latter two meds are frequently held. Will hold all of these medications. I will speak to his partner tomorrow after team meeting. Current Medications: Active Medications Generic Name Dose Route Start Last Admin Trade Name Freq PRN Reason Stop Dose Admin Acetaminophen 650 mg 08/05/19 12:17 08/16/19 00:53 Tylenol Tab* PO 650 mg Q6H PRN Administration MILD PAIN or TEMP > 100.4 Albuterol/Ipratropium 1 neb 08/05/19 14:10 Duoneb (Albuterol 2.5 Mg/Ipratropium 0.5 Mg) INH Q6H PRN SOB/WHEEZING Apixaban 5 mg 08/16/19 09:00 08/16/19 09:10 Eliquis* PO 5 mg BID HERMAN Administration Atorvastatin Calcium 10 mg 08/05/19 17:00 08/16/19 16:51 Lipitor* PO 10 mg 1700 HERMAN Administration Cholecalciferol 2,000 units 08/06/19 09:00 08/16/19 09:10 Vitamin D Tab* PO 2,000 units DAILY HERMAN Administration Cyanocobalamin 1,000 mcg 08/06/19 09:00 08/16/19 09:10 Vitamin B12 Tab* PO 1,000 mcg DAILY HERMAN Administration Dextrose 12.5 gm 08/05/19 17:39 D50w Syringe 50 Ml* IV PUSH .FOR FS < 60 - SS PRN FS < 60 Diclofenac Sodium 1 applic 08/07/19 08:46 08/07/19 21:41 Voltaren 1% Gel (Nf) TOPICAL 1 applic QID PRN Administration Pain - Moderate back pain Protocol Diltiazem HCl 120 mg 08/06/19 09:00 08/16/19 09:10 Cardizem Cd Cap* PO 120 mg DAILY HERMAN Administration Docusate Sodium 100 mg 08/16/19 12:29 Colace Cap* PO BID PRN CONSTIPATION Duloxetine HCl 60 mg 08/06/19 09:00 04/06/20 09:10 Cymbalta Cap* PO 60 mg DAILY HERMAN Administration Furosemide 20 mg 08/06/19 09:00 08/16/19 09:11 Lasix Tab* PO 20 mg DAILY HERMAN Administration Gabapentin 300 mg 08/05/19 21:00 08/15/19 20:51 Neurontin Cap(*) PO 300 mg 2100 HERMAN Administration Glipizide 5 mg 08/06/19 09:00 08/16/19 09:11 Glucotrol Xl* PO 5 mg DAILY HERMAN Administration Insulin Human Lispro 0 - 12 units 08/06/19 07:30 08/16/19 16:28 Humalog* SUBCUT Not Given AC [facility] Protocol Lorazepam 0.5 mg 08/06/19 11:08 08/09/19 23:59 Ativan Tab(*) PO 0.5 mg BID PRN Administration ANXIETY Magnesium Hydroxide 30 ml 08/05/19 12:17 08/08/19 20:02 Milk Of Magnesia Liq* PO 30 ml Q6H PRN Administration CONSTIPATION Metformin HCl 1,000 mg 08/05/19 17:00 08/16/19 16:51 Glucophage* PO 1,000 mg 0800,1700 HERMAN Administration Metoprolol Succinate 50 mg 08/06/19 09:00 08/16/19 09:11 Toprol Xl Tab* PO 50 mg DAILY HERMAN Administration Mometasone Furoate/Formoterol Fumar 2 puff 08/05/19 21:00 08/16/19 09:13 Dulera 100/5 Mdi* INH 2 puff BID HERMAN Administration Morphine Sulfate 15 mg 08/15/19 21:00 Ms Contin(*) PO Q12H PRN PAIN - SEVERE Nystatin 1 applic 08/05/19 21:00 08/16/19 09:18 Nystatin Top Powder* TOPICAL Not Given BID HERMAN Pantoprazole Sodium 40 mg 08/06/19 09:00 08/16/19 09:11 Protonix Tab* PO 40 mg DAILY HERMAN Administration Polyethylene Glycol/Electrolytes 17 gm 08/16/19 16:57 Miralax (17 Gm Dose Fransico) PO 0800,2100 PRN CONSTIPATION Potassium Chloride 20 meq 08/06/19 09:00 08/16/19 09:11 Klor Con Er Tab* PO 20 meq DAILY HERMAN Administration Senna 2 tab 08/05/19 12:17 Senokot 8.6 Mg Tab* PO BEDTIME PRN CONSTIPATION Tamsulosin HCl 0.4 mg 08/06/19 21:00 08/15/19 20:51 Flomax Cap* PO 0.4 mg BEDTIME HERMAN Administration Vital Signs: Vital Signs Temp Pulse Resp BP Pulse Ox 98.1 F 70 18 146/63 99 08/16/19 04:45 08/16/19 04:45 08/16/19 04:45 08/16/19 04:45 08/16/19 04:45 Lab Results: Laboratory Results - last 24 hr 08/15/19 08/15/19 08/16/19 11:30 16:39 07:40 POC Glucose (mg/dL) 133 H 83 99 08/16/19 12:07 POC Glucose (mg/dL) 105 H Exam: GENERAL: No acute distress. Alert and appropriate. LUNGS: decreased breath sounds consistent with COPD bilaterally. HEART: irregularly irregular. ABDOMEN: + bowel sounds, soft, non-tender, non-distended EXTREMITIES: Bilateral UE and LE ecchymoses. Mild edema. NEUROLOGIC : BUE motor 5/5 except 4/5 right ADM. LLE motor hip flexion 2, knee ext 2, DF 4, EHL 4. RLE motor hip flex 1, knee ext 2, DF 4, EHL 4. Impaired sensation in stocking distribution to above knees right greater than left. BACK: wound healing but draining at bottom of wound. Assessment/Plan: 69yo man s/p L1-5 decompression and fusion after L3 fracture and paraplegia with peripheral neuropathy. 1. S/P L1-5 decompression and fusion: LSO for comfort. Eliquis resumed Friday. f /u with Dr. Herbert 09/01 at 2:30p. PT/OT 2. Analgesia: Has chronic neuropathic pain, on gabapentin. Oxycodone and MS Contin prn. Topical diclofenac for back pain. 3. DVT prophylaxis: has h/o PE. Eliquis resumed. 4. Impaired cognition: working with speech therapy daily. CT from mid July showed atrophy c/w microvascular changes. cutting back MS Contin 5. Diabetes mellitus: metformin, glipizide sliding scale lispro. Lantus no longer needed. 6. COPD on home oxygen: oxygen 2L/min. Continue meds. 7. Paroxysmal atrial fibrillation: Eliquis restarted today. Lopressor/Cardizem. 8. Depression/Anxiety: duloxetine. Lorazepam 0.5mg bid prn anxiety if needed to mobilize with therapies. 9. Constipation: Having loose stools the past few days. Holding MagOx, Miralax 10. Multiple Myeloma: f/u with Dr. Whitmore as needed. 11. Advanced directives: full code. Sergey Parsons is his healthcare proxy if he cannot make decisions himself. 12. Estimated LOS - 08/27/2019 08/16/19 17:02
[2019-08-16] MEDS: Gabapentin CAP(*) 300 MG PO SCH (21:17)
[2019-08-16] MEDS: Tamsulosin CAP* 0.4 MG PO SCH (21:18)
[2019-08-17] MEDS: Acetaminophen TAB* 325 MG PO PRN (05:57)
[2019-08-17 06:42] LABS: Magnesium 1.7 mg/dL (1.9-2.7)
[2019-08-17] MEDS: Insulin LISPRO* 1 UNITS UNIT SUBCUT SCH ×3 (07:30→19:30)
[2019-08-17] MEDS ORDERED: Magnesium Oxide TAB* 400 MG PO SCH (09:00)
[2019-08-17] MEDS: Nystatin TOP POWDER* 15 GM BTL TOPICAL SCH ×2 (09:23→20:08)
[2019-08-17] MEDS: Mometasone/Formoter 100/5 MDI INH SCH ×2 (09:24→20:05)
[2019-08-17] MEDS: Potassium Chlor TAB* 20 MEQ TAB.ER PO SCH (09:24)
[2019-08-17] MEDS: Cholecalciferol TAB* 1000 UNITS PO SCH (09:24)
[2019-08-17] MEDS: Furosemide TAB* 20 MG PO SCH (09:25)
[2019-08-17] MEDS: Diltiazem CD CAP* 120 MG PO SCH (09:25)
[2019-08-17] MEDS: Pantoprazole TAB * 40 MG TAB PO SCH (09:25)
[2019-08-17] MEDS: Metoprolol Succinate XL TAB* 50 MG PO SCH (09:25)
[2019-08-17] MEDS: glipiZIDE TAB.XL* 5 MG PO SCH (09:25)
[2019-08-17] MEDS: DULoxetine DR CAP* 60 MG CAP.DR PO SCH (09:25)
[2019-08-17] MEDS: Cyanocobalamin TAB* 500 MCG PO SCH (09:25)
[2019-08-17] MEDS: Apixaban* 5 MG TAB PO SCH ×2 (09:25→20:06)
[2019-08-17] MEDS: metFORMIN* 1,000 MG TAB PO SCH ×2 (09:25→16:36)
--- NOTE | 2019-08-17 12:42 | PN ---
Progress Note - Progress Note Date of Service: 08/17/19 SOAP: Subjective: [Bienvenido is well known to the oncology service undergoing treatment for multiple myeloma. He has sustained multiple falls in the last several months. Most recent was in Jun after which he developed a large hematoma over his buttocks. Pelvis was negative for fx. He then presented to the ER 07/25/19 with concerns for recurrent hypoglycemia and freq falls and progressive back pain. Imaging in the ER included CT of the Lspine and pelvis which demonstrated an expansile lesion of L3 with what appeared to be a pathologic fracture. Neurosurgery was not available for consultation and he was transferred to [facility]. He underwent fusion and decompression of L1-5 with ORIF of L2-4 with surgical biopsies taken. Pathology revealed adipose tissue and was negative for malignancy. Imaging also revealed a large psoas hematoma measuring 7x6x24 cm with associated severe anemia. His anticoagulation was held and hematoma was stable on repeat imaging. His post-op course was c/b CAP and [place] [facility] [place]. He was initially quite confused and lethargic, but his mental status has improved since tapering off of ER morphine, now just using prn IR doses. His functional status has not improved significantly over the last 2 weeks, cont to require a Kay for transfers. Review of all relevant imaging demonstrates the following time table: PET-CT 2019 - no fx and no PET avid lesions, XR LS/pelvis 06/30/19 - L1, 3/4 compression fxs which were read as age indeterminant, CT LS/pelvis 07/25/19 - expansile lesion with associated compression fx at L3, post-op imaging 07/27 at [facility] still read as showing L3/4 disc space expansion with extension to the spinal canal and crowding of the cauda equina as well as extension to the L3/4 R neural foramen. Objective: [ Vital Signs: Temp Pulse Resp BP Pulse Ox 97.5 F 73 18 154/68 100 08/17/19 06:10 08/17/19 06:10 08/17/19 06:10 08/17/19 06:10 08/17/19 06:10 Acetaminophen (Tylenol Tab*) 650 mg PO Q6H PRN PRN Reason: MILD PAIN or TEMP > 100.4 Last Admin: 08/17/19 05:57 Dose: 650 mg Albuterol/Ipratropium (Duoneb (Albuterol 2.5 Mg/Ipratropium 0.5 Mg)) 1 neb INH Q6H PRN PRN Reason: SOB/WHEEZING Apixaban (Eliquis*) 5 mg PO BID [facility] Last Admin: 08/17/19 09:25 Dose: 5 mg Atorvastatin Calcium (Lipitor*) 10 mg PO 1700 [facility] Last Admin: 08/16/19 16:51 Dose: 10 mg Cholecalciferol (Vitamin D Tab*) 2,000 units PO DAILY [facility] Last Admin: 08/17/19 09:24 Dose: 2,000 units Cyanocobalamin (Vitamin B12 Tab*) 1,000 mcg PO DAILY [facility] Last Admin: 08/17/19 09:25 Dose: 1,000 mcg Dextrose (D50w Syringe 50 Ml*) 12.5 gm IV PUSH .FOR FS < 60 - SS PRN PRN Reason: FS < 60 Diclofenac Sodium (Voltaren 1% Gel (Nf)) 1 applic TOPICAL QID PRN; Protocol PRN Reason: Pain - Moderate back pain Last Admin: 08/07/19 21:41 Dose: 1 applic Diltiazem HCl (Cardizem Cd Cap*) 120 mg PO DAILY [facility] Last Admin: 08/17/19 09:25 Dose: 120 mg Docusate Sodium (Colace Cap*) 100 mg PO BID PRN PRN Reason: CONSTIPATION Duloxetine HCl (Cymbalta Cap*) 60 mg PO DAILY [facility] Last Admin: 08/17/19 09:25 Dose: 60 mg Furosemide (Lasix Tab*) 20 mg PO DAILY [facility] Last Admin: 08/17/19 09:25 Dose: 20 mg Gabapentin (Neurontin Cap(*)) 300 mg PO 2100 [facility] Last Admin: 08/16/19 21:17 Dose: 300 mg Glipizide (Glucotrol Xl*) 5 mg PO DAILY [facility] Last Admin: 08/17/19 09:25 Dose: 5 mg Insulin Human Lispro (Humalog*) 0 - 12 units SUBCUT AC [facility]; Protocol Last Admin: 08/17/19 07:30 Dose: Not Given Lorazepam (Ativan Tab(*)) 0.5 mg PO BID PRN PRN Reason: ANXIETY Last Admin: 08/09/19 23:59 Dose: 0.5 mg Magnesium Hydroxide (Milk Of Magnesia Liq*) 30 ml PO Q6H PRN PRN Reason: CONSTIPATION Last Admin: 08/08/19 20:02 Dose: 30 ml Metformin HCl (Glucophage*) 1,000 mg PO 0800,1700 [facility] Last Admin: 08/17/19 09:25 Dose: 1,000 mg Metoprolol Succinate (Toprol Xl Tab*) 50 mg PO DAILY [facility] Last Admin: 08/17/19 09:25 Dose: 50 mg Mometasone Furoate/Formoterol Fumar (Dulera 100/5 Mdi*) 2 puff INH BID [facility] Last Admin: 08/17/19 09:24 Dose: 2 puff Morphine Sulfate (Ms Contin(*)) 15 mg PO Q12H PRN PRN Reason: PAIN - SEVERE Nystatin (Nystatin Top Powder*) 1 applic TOPICAL BID [facility] Last Admin: 08/17/19 09:23 Dose: 1 applic Pantoprazole Sodium (Protonix Tab*) 40 mg PO DAILY [facility] Last Admin: 08/17/19 09:25 Dose: 40 mg Polyethylene Glycol/Electrolytes (Miralax (17 Gm Dose Fransico)) 17 gm PO 0800,2100 PRN PRN Reason: CONSTIPATION Potassium Chloride (Klor Con Er Tab*) 20 meq PO DAILY [facility] Last Admin: 08/17/19 09:24 Dose: 20 meq Senna (Senokot 8.6 Mg Tab*) 2 tab PO BEDTIME PRN PRN Reason: CONSTIPATION Tamsulosin HCl (Flomax Cap*) 0.4 mg PO BEDTIME [facility] Last Admin: 08/16/19 21:18 Dose: 0.4 mg Laboratory Results - last 24 hr 08/16/19 08/16/19 08/16/19 07:40 12:07 16:27 POC Glucose (mg/dL) 99 105 H 97 Magnesium 08/17/19 06:19 POC Glucose (mg/dL) Magnesium 1.7 L ] Exam (limited as he was participating in speech therapy): Gen: chronically ill appearing and in NAD, participating with speech therapy Resp: easy/even respirations Assessment: [This is a 69 yo male with MM, IDDM and afib transferred to [facility] 07/24 with concerns for a pathologic fracture now s/p ORIF and fusion 07/27. Surgical pathology negative for malignancy. A large psoas hematoma was recognized with associated anemia. Anticoagulation was held for at least 2 weeks and hematoma stable on imaging prior to dc from [facility]. Anticoagulation has since been resumed during his stay in [facility]. Despite his surgical pathology being negative for malignancy his postoperative imaging remained concerning for an invasive process. He has not improved significantly since arriving on [facility]. Plan: [1. Lspine fx - s/p fusion and ORIF 07/27 at [facility] with Dr Herbert - suspicion remains high for an associated malignant process (likely a plasmacytoma) despite negative surgical pathology - recommend MRI with and without contrast of the Lspine and pelvis for additional evaluation - contrast enhancement of the L3 region may be difficult to interpret given recent surgery (~3 weeks post-op), but if clinical suspicion remains high will consider focal radiation to the region 2. Psoas hematoma - anticoagulation has resumed, will need to monitor closely for re-bleeding - could alternatively consider IVC filter 3. CAP - recovered 4. Multiple Myeloma - good disease control by PET and serology in May/Jun - He has been off of therapy for ~1 month ([id number] daratumumab/velcade/ dexamethasone 07/21/19) - MRI LS/pelvis as described above - ordered SPEP, light chains and QUIGs to reassess status of disease process 5. Afib/ - s/p TAVR and watchman procedure 6. h/o PE 10/2018 - anticoagulated with Eliquis (held for large psoas hematoma, now resumed) - recommend IVC filter if rebleeding occurs Dispo: per [facility] team, recommend re-evaluation of dc plan following MRI. Oncology will continue to follow closely.]
--- NOTE | 2019-08-17 13:05 | PMRUTEAM ---
PMRU: Team Meeting Current Status: Physical Therapy: Current Status Current Rolling Status Supervision/Touching Current Supine <-> Sit Status Partial/Moderate Current Sit <-> Stand Status Substantial/Maximal Current Bed <-> Chair Status Dependent Transfer/Bed Mobility Railings,EZ Stand Recommended Devices Transfer Mobility Comment Pt able to stand with rails mod-max Ax1/gait belt Current Picking Up Object Dependent Status Current Car Transfer Status Not attempted Current Ambulation Assistance Not attempted Status Current Wheelchair Propulsion Not attempted Ability Status Current Stair Climbing Status Not attempted Current Curb Assistance Status Not attempted Objective Comments Pt more agreeable throughout therapy session, eager to participate this date. Continues to require education and encouragement for safety and adequate rest/ work periods. Occupational Therapy: Current Status Current Upper Body Dressing Setup or Clean-up Assist Status Current Lower Body Dressing Dependent Status Current Footwear Status Partial/Moderate Current Bathing Status Dependent Bathing Progress Pt uses EZ stand to clean buttocks Current Grooming Status Partial/Moderate Current Toileting Status Dependent Current Toilet Transfer Status Dependent Current Eating Status Independent Nursing: Current Status Skin Deviations [gluteal cleft Other ] Skin Deviations [Forehead] Abrasion Skin Deviations [Saad upper and Abrasion,Bruise lower extremities] Skin Deviations [Mid Back] Other Skin Deviations [Right Other Buttocks] Skin Deviations [Bilateral Other Lower Leg] Skin Deviations [Upper Chest] Laceration Skin Deviations [Right Upper Previous Access Point Arm] Skin Deviations [Bilateral Other Groin] Skin Deviations [Left Medial Other Knee] Skin Deviations [Right Elbow] Abrasion Skin Deviations [Lower Back] Incision Skin Deviation Description [ small open area. orange barrier applied gluteal cleft] Skin Deviation Description [ scab intact Forehead] Skin Deviation Description [ scattered; various stages of healing Saad upper and lower extremities] Skin Deviation Description [ healed Mid Back] Skin Deviation Description [ healed Right Buttocks] Skin Deviation Description [ flaky skin Bilateral Lower Leg] Skin Deviation Description [ scattered, healing Upper Chest] Skin Deviation Description [ picc D/C compresive dresssing in place. Right Upper Arm] Skin Deviation Description [ redness. nystatin applied Bilateral Groin] Skin Deviation Description [ area improving daily. xeroform, telfa and carol Left Medial Knee] applied Skin Deviation Description [ healing Right Elbow] Skin Deviation Description [ scant serosang drainage Lower Back] Bladder Current Status spills urinal Bowel Current Status incontinent of bm. sample for c. diff sent Nutrition Current Status appetite fair Medication Current Status needs reinforcement Rec Therapy: Current Status Summary of Assessment and Recreation Therapy assessment complete and pt is Clinical Impression aware of services. Pt was provided with word searches and is open to continued leisure visits. Treatment Goals Pt will engage in leisure activities while on the unit, as tolerated. Treatment Plan Provide Recreation Therapy services and encourage involvement. Social Work: Current Status Discharge Plan return home with home care svs and family support Potential for Family Training pt's partner is involved and supportive Anticipated Discharge Home Destination Discharge With home care svs and family support Nutrition: Current Status Monitoring po intake on avg ~68% of meals for past week. Consistent carb diet could likely be liberated to REGULAR diet to perhaps improve po intake, as FS/ BGs only ranging in upper 90s-low 100s. Appears to be having daily BMs, per documentation; some are loose, so c.diff to be tested. Skin remains intact. Labs reviewed: mag remains low (1.7) despite supplementation w/Magox;, which was d/c'd in effort to reduced diarrhea. TAPER/FINISHER working w/pt on cognitive skills; swallowing appears to be intact. He is independent w/eating per OT notes. Pt has been confused, however, and will likely require change of d/c plan, as discussed w/s.o. ( Sergey) by provider. Speech: Current Status Assessment Patient is progressing, as expected. Goals: Physical Therapy: Goals Goals to Be Accomplished in ( 14-18 Days) Goal: Rolling Assistance Independent Goal Supine <-> Sit Status Independent Goal Sit <-> Stand Status Independent Goal Bed <-> Chair Status Independent Transfer/Bed Mobility Railings,SALAS Recommended Devices Goal: Picking Up Object Independent Goal: Car Transfer Status Setup or Clean-up Assist Goal: Ambulation Assistance Supervision/Touching Ambulation Assistive Devices Rolling Walker Ambulation Distance (ft) 50' Goal: Wheelchair Propulsion Independent Ability Wheelchair Distance (ft) 150' Goal: Stairs Assistance Supervision/Touching Stairs Recommended Devices Two Rails Number of Stairs 12 Goal: Curb Assistance Supervision/Touching Goal: Home Exercise Program Independent Assistance Occupational Therapy: Goals Goals to be Completed in (Days 14-18 ) Goal Upper Body Dressing Setup or Clean-up Assist Routine Goal Lower Body Dressing Partial/Moderate Routine Goal Footwear Status Partial/Moderate Goal Bathing Routine (OT) Partial/Moderate Goal Grooming Routine Setup or Clean-up Assist Goal Toilet Hygiene and Supervision/Touching Clothing Management Routine Goal Toilet Transfer Routine Supervision/Touching Goal Functional Transfers for Supervision/Touching ADL Goal Feeding Routine Independent Goal Light Housekeeping Tasks Substantial/Maximal Nutrition: Goals Intervention Goals 1. Intake adequate to maintain stable wt without unintended wt loss (or gain) 2. Adequate glycemic control per inpt parameters 3. Regular bowel pattern without constipation (or diarrhea) Speech: Goals Speech Goal 1 Comprehension Goal 1 Comments Long-Term Goal: Pt will use compensatory strategies to demonstrate comprehension of complex , 2-3 part verbal and written information of moderate complexity, 90% accuracy, Independently. Status: Progressing slowly as expected Short-Term Goal: Pt will use compensatory strategies to demonstrate comprehension of simple verbal information and one-part directions, 80% accuracy, given skilled instruction, Moderate cueing, and extra time. Status: Met 08/11/19. Patient followed 1 and 2 step directions with 90% accuracy with cueing faded to minimal redirectio of attention before each command. Short-Term Goal, Revised 08/11/19: Pt will use compensatory strategies to demonstrate comprehension of complex, 3-part verbal and written information, 80% accuracy, given moderate extra time, and Moderate skilled instruction and cueing. Status: Progressing as expected TAPER/FINISHER presented a short printed article, [employer], with 3 pairs of details: time (immediate, weeks), supplies ( personal kits, home clean up), and methods ( centers, vehicles). Patient initially confabulated with words from previous activity, but after rehearsal with maximal cueing, demonstrated verbal understanding. Speech Goal 2 Problem Solving Speech Goal 2 Evaluation Moderate Status Speech Goal 2 Comments Problem Solving Goal: Long-Term Goal: Pt will use compensatory strategies to solve moderately complex routine problems, for transfer and mobility safety, adaptive dressing, time and money management; with 100% accuracy, Independently. Status: Progressing slowly as expected Problem Solving Goal: Short-Term: Pt will use compensatory strategies to solve simple routine problems, for transfer and mobility safety, adaptive dressing, time and money management; with 80% accuracy, given skilled instruction, Moderate cueing, and extra time. Status: Progressing slowly as expected *Patient was provided with functional time word problems (auditory presentation) for which he answered with 92% accuracy, no cues, but with extra time required. *Patient was provided with auditory memory tasks: -Word list retention; word placement, field of 4 words: 43% accuracy, no cues, but with extra time required. Patient independently repeated words and was eventually able to state all 4 in accurate sequential order given 2-3 repetitions and maximum verbal reminders from this therapist; however, patient was not always able to respond to the word placement question accurately after doing that ( ie: "What was the second word?). Social Work: Goals Discharge Plan return home with home care svs and family support Potential for Family Training pt's partner is involved and supportive Anticipated Discharge Home Destination Discharge With home care svs and family support Nursing: Goals Bladder Goal independent Bowel Goal independent Nutrition Goal 100% of all meals consumed Medication Goal independent Care Plan: Care Plan ADL's - Improve/Maintain Start: 08/06/19 14:44 Freq: [id number] Status: Active Target: 08/27/19 Protocol: Activity Type Activity Date Activity User E-Sign Co-Sign Detail Recorded Client Recorded Date Recorded By Document 08/17/19 10:23 [id number] 08/17/19 10:23 [id number] 08/17/19 10:23 PMRU Outcome: ADL's/ADL Transfers Orders/Interventions Occupational Therapy Evaluation & Treatment Device Yes Address Deficits Secondary To: Lumbar spine fx s/p lumbar fusion L1-L5 Patient to receive OT 5x/wk for 60-120 Therex min/day Self Care Management Group Therapy UE/LE ADL's with Assist Yes: Independent ADL Transfers with Assist Yes: Independent Toileting: Transfers,Clothing Management Yes: ,Hygeine w/Assist Independent Light Kitchen/Laundry w/Assist maxA Other Outcome/Goals Pt tolerates OT tx session well this date. He continues to be incontinent of stool requiring totalA for hygiene. Pt does tolerate EZ stand better this date and able to stand for a longer period of time in EZ stand while nsg staff applies barrier creams. Pt does not scream/yell out . Progression Toward Outcome/Goals Progressing Communication-Improve/Maintain Start: 08/06/19 12:06 Freq: DAILY@0700,1900 Status: Active Target: 08/23/19 Protocol: Activity Type Activity Date Activity User E-Sign Co-Sign Detail Recorded Client Recorded Date Recorded By Document 08/16/19 13:38 KB [id number] 08/16/19 13:40 KB 08/16/19 13:38 PMRU Outcome: Communication/Cognitive Status Current Communication Outcome/Goals Makes Needs Known Effectively Other Communication Outcomes/Goals Long-Term Goal: Pt will use compensatory strategies to demonstrate comprehension of complex, 2-3 part verbal and written information of moderate complexity, 90% accuracy, Independently. Status: Progressing slowly as expected Short-Term Goal : Pt will use compensatory strategies to demonstrate comprehension of simple verbal information and one-part directions, 80% accuracy, given skilled instruction, Moderate cueing , and extra time. Status: Met 08/11/19. Patient followed 1 and 2 step directions with 90% accuracy with cueing faded to minimal redirectio of attention before each command. Short-Term Goal , Revised : Pt will use compensatory strategies to demonstrate comprehension of complex, 3- part verbal and written information, 80 % accuracy, given moderate extra time, and Moderate skilled instruction and cueing. Status: Progressing as expected Problem Solving Goal: Long- Term Goal: Pt will use compensatory strategies to solve moderately complex routine problems, for transfer and mobility safety , adaptive dressing, time and money management; with 100% accuracy, Independently. Status: Progressing slowly as expected Problem Solving Goal: Short- Term: Pt will use compensatory strategies to solve simple routine problems, for transfer and mobility safety , adaptive dressing, time and money management; with 80% accuracy, given skilled instruction, Moderate cueing , and extra time. Status: Progressing slowly as expected *Patient was provided with functional time word problems (auditory presentation) for which he answered with 92% accuracy, no cues, but with extra time required. *Patient was provided with auditory memory tasks: -Word list retention; word placement, field of 4 words: 43% accuracy, no cues, but with extra time required. Patient independently repeated words and was eventually able to state all 4 in accurate sequential order given 2-3 repetitions and maximum verbal reminders from this therapist; however, patient was not always able to respond to the word placement question accurately after doing that (ie: "What was the second word?). Progression Toward Outcomes/Goals Progressing Coping/Psych-Improve/Maintain Start: 08/05/19 23:47 Freq: DAILY@0700,1900 Status: Active Target: 08/23/19 Protocol: Activity Type Activity Date Activity User E-Sign Co-Sign Detail Recorded Client Recorded Date Recorded By Document 08/17/19 08:00 [id number] 08/17/19 10:10 [id number] 08/17/19 08:00 PMRU Outcome: Coping/Psychosocial Current Coping Outcome/Goals Verbalization of Acceptance of Rehab Admit Verbalization of Sense of Control Over Health Status Utilization of Appropriate Problem Solving Techniques Willingness to Participate in Treatment Plan and Basic Needs Utilization of Available Support Systems Progression Toward Outcome/Goals Progressing Current Psychosocial Outcome/Goals Maintain/ Improve Emotional Health Demonstrates Knowledge of Healthy Coping Mechanisms Available Cooperate/ Participate in Plan Progression Toward Outcome/Goals Progressing DVT Prophylaxis- Improve/Maintain Start: 08/05/19 23:47 Freq: DAILY@0700,1900 Status: Active Target: 08/23/19 Protocol: Activity Type Activity Date Activity User E-Sign Co-Sign Detail Recorded Client Recorded Date Recorded By Document 08/17/19 08:00 [id number] 08/17/19 10:10 [id number] 08/17/19 08:00 PMRU Outcome: DVT Prophylaxis Current DVT Outcome/Goals Remains Free of DVT Complies with DVT Prophylaxis /Treatment Demonstrates Knowledge of DVT Prevention/ Treatment Other DVT Other Outcome/Goals KEI WRAPS APPLIED Progression Toward Outcome/Goals Progressing Discharge Planning - Improve/Maintain Start: 08/05/19 23:47 Freq: DAILY@0700,1900 Status: Active Target: 08/23/19 Protocol: Activity Type Activity Date Activity User E-Sign Co-Sign Detail Recorded Client Recorded Date Recorded By Document 08/17/19 08:00 [id number] 08/17/19 10:10 [id number] 08/17/19 08:00 PMRU Outcome: Discharge Planning Update Patient Family No: FAMILY NOT PRESENT AT THIS TIME Current Discharge Planning Outcome/Goals Demonstrates Understanding of Discharge Plan Homecare Referral - See Comment Progression Toward Outcome/Goals Progressing Education-Improve/Maintain Start: 08/05/19 23:47 Freq: DAILY@0700,1900 Status: Active Target: 08/23/19 Protocol: Activity Type Activity Date Activity User E-Sign Co-Sign Detail Recorded Client Recorded Date Recorded By Document 08/17/19 08:00 [id number] 08/17/19 10:10 [id number] 08/17/19 08:00 PMRU Outcome: Education Current Education Outcome/Goals Demonstrate/ Verbalize Understanding of Written Discharge Instructions Demonstrates Skills Encourage Questions Progression Toward Outcome/Goals Progressing /GI-Improve/Maintain Start: 08/05/19 23:47 Freq: DAILY@[id number] Status: Active Target: 08/23/19 Protocol: Activity Type Activity Date Activity User E-Sign Co-Sign Detail Recorded Client Recorded Date Recorded By Document 08/17/19 08:00 [id number] 08/17/19 10:10 [id number] 08/17/19 08:00 PMRU Outcome: Genitourinary/ Gastrointestinal Current Gastrointestinal Outcome/Goals Maintain/ Achieve Bowel Regularity in Accordance with Pt's Baseline Remain Free of Emesis Prevent Constipation Bowel Regularity at Home Laxatives as Ordered Other GI Outcome/Goals INCONTINENT OF BM Progression Toward Outcome/Goals Progressing Current Genitourinary Outcome/Goals Maintain/ Achieve Urinary Continence Maintain/ Achieve Adequate Urinary Output Remain Free of Hospital- Acquired UTI Progression Toward Outcome/Goals Progressing Medication Administration Start: 08/05/19 23:47 Freq: DAILY@ Status: Active Target: 08/23/19 Protocol: Activity Type Activity Date Activity User E-Sign Co-Sign Detail Recorded Client Recorded Date Recorded By Document 08/17/19 08:00 [id number] 08/17/19 10:10 [id number] 08/17/19 08:00 PMRU Outcome: Medication Administration Assess Patient Knowledge/Teach Med Yes Education for all Meds Current Cosmetic Sales Outcome/Goals Family/ Caregiver Administer Medications at Home Demonstrates Understanding Progression Towards Outcome/Goals Progressing Is Patient Going Home on Lovenox? No Metabolic Status- Improve/Maintain Start: 08/05/19 23:47 Freq: DAILY@ Status: Active Target: 08/23/19 Protocol: Activity Type Activity Date Activity User E-Sign Co-Sign Detail Recorded Client Recorded Date Recorded By Document 08/17/19 08:00 [id number] 08/17/19 10:10 [id number] 08/17/19 08:00 PMRU Outcome: Metabolic Status Have Fingersticks Been Ordered Yes Fingerstick Order Frequency AC & HS Current Metabolic Status Outcome/Goals Maintain/ Improve Metabolic Status Demonstrate Knowledge of Prevention/ Treatment of Metabolic Imbalances Progression Toward Outcome/Goals Progressing Mobility- Improve/Maintain Start: 08/05/19 17:32 Freq: DAILY@[id number] Status: Active Target: 08/06/19 Protocol: Activity Type Activity Date Activity User E-Sign Co-Sign Detail Recorded Client Recorded Date Recorded By Document 08/16/19 16:13 [id number] [id number] 08/16/19 16:13 [id number] 08/16/19 16:13 PMRU Outcome: Mobility Physical Therapy Evaluation and Yes Treatment Activity OOB with Assistance Yes WBAT Yes NWB No TTWB No Device Yes Assistance Yes Patient to be seen 5x/wk for 60-120 min/ Therex day for: Mobility Training Gait Training W/C Mobility Balance Other Therapy Comment DC training/ planning Current Mobility Outcome/Goals Maintain/ Achieve Baseline Mobility Status Improve Mobility Status Demonstrates Proper Use of Assistive Devices Free from Complications of Immobility Progression Toward Outcome/Goals Progressing Bed Mobility Yes: Independent Transfers Yes: Independent with RW Gait x ft Yes: 50' supervision W/C Mobility x ft Yes: 150' Independent Up/Down Stairs Yes: 12 wth 2 rails, supervision With HEP Yes: Independent Pain/Comfort- Improve/Maintain Start: 08/05/19 23:47 Freq: DAILY@ Status: Active Target: 08/23/19 Protocol: Activity Type Activity Date Activity User E-Sign Co-Sign Detail Recorded Client Recorded Date Recorded By Document 08/17/19 08:00 [id number] 08/17/19 10:10 [id number] 08/17/19 08:00 PMRU Outcome: Pain/Comfort Current Pain/Comfort Outcome/Goals Demonstrates Knowledge and Use of Available Comfort Measures Achieves Acceptable Comfort/Pain Level as Determined by Patient/Condit Maintain Comfort Level Allowing Patient to Fully Participate in Rehab Progression Toward Outcome/Goals Progressing Rec Therapy- Improve/Maintain Start: 08/05/19 16:58 Freq: DAILY@[id number] Status: Active Target: 08/27/19 Protocol: Activity Type Activity Date Activity User E-Sign Co-Sign Detail Recorded Client Recorded Date Recorded By Document 08/12/19 16:38 [id number] 08/12/19 16:39 [id number] 08/12/19 16:38 PMRU Outcome: Recreation Therapy Current Rec Ther Outcome/Goals Complete Rec Therapy Assessment Meet with Patient Regularly for Support Encourage Leisure Involvement Progression Toward Outcome/Goals Progressing Lack of Progression Comment Met with pt for a 1:1 visit. Pt was reading the newspaper and appeared to be in good spirits. Pt shared that he has been working on his word search. Outcome/Goals Met Complete Rec Therapy Assessment Safety- Improve/Maintain Start: 08/05/19 11:56 Freq: DAILY@0700,1900 Status: Active Target: 08/23/19 Protocol: Activity Type Activity Date Activity User E-Sign Co-Sign Detail Recorded Client Recorded Date Recorded By Document 08/17/19 08:00 [id number] 08/17/19 10:10 [id number] 08/17/19 08:00 PMRU Outcome: Safety Current Safety Outcome/Goals Remain Free of Injury or Harm Cooperates with Safety Measures for Least Restrictive Environment Prevent Falls/ Injury Other Safety Outcome/Goals PA/BA Progression Toward Outcome/Goals Progressing - Interdisciplinary Staff Present Panel Raiser Operator/Social Work Staff Present: Millie Montalvo LMSW Nursing Staff Present: Angie Corley, RN OT Staff Present: Zahra Trejo PT Staff Present: Yolande Verduzco TAPER/FINISHER Staff Present: Mert Arzate Medicine Note: Length of Stay: 2 days Anticipated Discharge Destination: SNF Tentative Discharge Date: 08/19/2019 Discharged to: Likely SNF
[2019-08-17] MEDS ORDERED: Iodixanol* (CONTRAST) 320 MG/ML 100 ML SDV IV ONE (14:36)
[2019-08-17] MEDS ORDERED: Loperamide CAP* 2 MG PO ONE (14:38)
[2019-08-17] MEDS: Atorvastatin* 10 MG TAB PO SCH (16:35)
--- NOTE | 2019-08-17 18:02 | PN ---
Progress Note Date of Service: 08/17/19 Note: KELSI BLAIR was visited. Therapy notes read and reviewed. He was discussed in interdisciplinary team rounds. Case was discussed with MARQUITA Moralez from [facility] who know Kelsi quite well and has consulted on his care. He is having trouble making functional gains and may need to look to continue rehab in a subacute setting. Initial plans were made for a new MRI (w and w/o eric) but it will take several days to arrange due to his pacer. A CT scan was ordered but IV access was not able to be obtained. Will try tomorrow with U/S and have CT. Following CT scan will work on d/c plans. Clearly, Kelsi is seeing how much work he needs to do to get home. I also spoke with his partner, Sergey, and they are seeing the need for a prolonged rehab Current Medications: Active Medications Generic Name Dose Route Start Last Admin Trade Name Freq PRN Reason Stop Dose Admin Acetaminophen 650 mg 08/05/19 12:17 08/17/19 05:57 Tylenol Tab* PO 650 mg Q6H PRN Administration MILD PAIN or TEMP > 100.4 Albuterol/Ipratropium 1 neb 08/05/19 14:10 Duoneb (Albuterol 2.5 Mg/Ipratropium 0.5 Mg) INH Q6H PRN SOB/WHEEZING Apixaban 5 mg 08/16/19 09:00 08/17/19 09:25 Eliquis* PO 5 mg BID HERMAN Administration Atorvastatin Calcium 10 mg 08/05/19 17:00 08/17/19 16:35 Lipitor* PO 10 mg 1700 HERMAN Administration Cholecalciferol 2,000 units 08/06/19 09:00 08/17/19 09:24 Vitamin D Tab* PO 2,000 units DAILY HERMAN Administration Cyanocobalamin 1,000 mcg 08/06/19 09:00 08/17/19 09:25 Vitamin B12 Tab* PO 1,000 mcg DAILY HERMAN Administration Dextrose 12.5 gm 08/05/19 17:39 D50w Syringe 50 Ml* IV PUSH .FOR FS < 60 - SS PRN FS < 60 Diclofenac Sodium 1 applic 08/07/19 08:46 08/07/19 21:41 Voltaren 1% Gel (Nf) TOPICAL 1 applic QID PRN Administration Pain - Moderate back pain Protocol Diltiazem HCl 120 mg 08/06/19 09:00 08/17/19 09:25 Cardizem Cd Cap* PO 120 mg DAILY HERMAN Administration Docusate Sodium 100 mg 08/16/19 12:29 Colace Cap* PO BID PRN CONSTIPATION Duloxetine HCl 60 mg 08/06/19 09:00 08/17/19 09:25 Cymbalta Cap* PO 60 mg DAILY HERMAN Administration Furosemide 20 mg 08/06/19 09:00 08/17/19 09:25 Lasix Tab* PO 20 mg DAILY HERMAN Administration Gabapentin 300 mg 08/05/19 21:00 08/16/19 21:17 Neurontin Cap(*) PO 300 mg 2100 HERMAN Administration Glipizide 5 mg 08/06/19 09:00 08/17/19 09:25 Glucotrol Xl* PO 5 mg DAILY HERMAN Administration Insulin Human Lispro 0 - 12 units 08/06/19 07:30 08/17/19 12:00 Humalog* SUBCUT Not Given AC [facility] Protocol Lorazepam 0.5 mg 08/06/19 11:08 08/09/19 23:59 Ativan Tab(*) PO 0.5 mg BID PRN Administration ANXIETY Magnesium Hydroxide 30 ml 08/05/19 12:17 08/08/19 20:02 Milk Of Magnesia Liq* PO 30 ml Q6H PRN Administration CONSTIPATION Metformin HCl 1,000 mg 08/05/19 17:00 08/17/19 16:36 Glucophage* PO 1,000 mg 0800,1700 HERMAN Administration Metoprolol Succinate 50 mg 08/06/19 09:00 08/17/19 09:25 Toprol Xl Tab* PO 50 mg DAILY HERMAN Administration Mometasone Furoate/Formoterol Fumar 2 puff 08/05/19 21:00 08/17/19 09:24 Dulera 100/5 Mdi* INH 2 puff BID HERMAN Administration Morphine Sulfate 15 mg 08/15/19 21:00 Ms Contin(*) PO Q12H PRN PAIN - SEVERE Nystatin 1 applic 08/05/19 21:00 08/17/19 09:23 Nystatin Top Powder* TOPICAL 1 applic BID HERMAN Administration Pantoprazole Sodium 40 mg 08/06/19 09:00 08/17/19 09:25 Protonix Tab* PO 40 mg DAILY HERMAN Administration Polyethylene Glycol/Electrolytes 17 gm 08/16/19 16:57 Miralax (17 Gm Dose Fransico) PO 0800,2100 PRN CONSTIPATION Potassium Chloride 20 meq 08/06/19 09:00 08/17/19 09:24 Klor Con Er Tab* PO 20 meq DAILY HERMAN Administration Senna 2 tab 08/05/19 12:17 Senokot 8.6 Mg Tab* PO BEDTIME PRN CONSTIPATION Tamsulosin HCl 0.4 mg 08/06/19 21:00 08/16/19 21:18 Flomax Cap* PO 0.4 mg BEDTIME HERMAN Administration Vital Signs: Vital Signs Temp Pulse Resp BP Pulse Ox 97.5 F 73 26 149/65 100 08/17/19 16:20 08/17/19 16:20 08/17/19 16:20 08/17/19 16:20 08/17/19 16:20 Lab Results: Laboratory Results - last 24 hr 08/16/19 08/17/19 16:27 06:19 POC Glucose (mg/dL) 97 Magnesium 1.7 L Exam: GENERAL: No acute distress. Alert and appropriate. LUNGS: decreased breath sounds consistent with COPD bilaterally. HEART: irregularly irregular. ABDOMEN: + bowel sounds, soft, non-tender, non-distended EXTREMITIES: Bilateral UE and LE ecchymoses. Mild edema. NEUROLOGIC : BUE motor 5/5 except 4/5 right ADM. LLE motor hip flexion 2, knee ext 2, DF 4, EHL 4. RLE motor hip flex 1, knee ext 2, DF 4, EHL 4. Impaired sensation in stocking distribution to above knees right greater than left. BACK: wound healing Assessment/Plan: 69yo man s/p L1-5 decompression and fusion after L3 fracture and paraplegia with peripheral neuropathy. 1. S/P L1-5 decompression and fusion: LSO for comfort. Eliquis resumed Friday. f /u with Dr. Herbert 09/01 at 2:30p. PT/OT 2. Analgesia: Has chronic neuropathic pain, on gabapentin. Oxycodone and MS Contin prn. Topical diclofenac for back pain. 3. DVT prophylaxis: has h/o PE. Eliquis resumed. 4. Impaired cognition: working with speech therapy daily. CT from mid July showed atrophy c/w microvascular changes. cutting back MS Contin 5. Diabetes mellitus: metformin, glipizide sliding scale lispro. Lantus no longer needed. 6. COPD on home oxygen: oxygen 2L/min. Continue meds. 7. Paroxysmal atrial fibrillation: Eliquis restarted today. Lopressor/Cardizem. 8. Depression/Anxiety: duloxetine. Lorazepam 0.5mg bid prn anxiety if needed to mobilize with therapies. 9. Constipation: Having loose stools the past few days. Holding MagOx, Miralax one dose of Imodium 10. Multiple Myeloma: f/u with Dr. Whitmore/Jared Alan as needed. 11. Advanced directives: full code. Sergey Parsons is his healthcare proxy if he cannot make decisions himself. 12. Estimated - 08/27/2019 08/17/19 18:02
[2019-08-17] MEDS: Gabapentin CAP(*) 300 MG PO SCH (20:06)
[2019-08-17] MEDS: Tamsulosin CAP* 0.4 MG PO SCH (20:07)
[2019-08-18] MEDS: Insulin LISPRO* 1 UNITS UNIT SUBCUT SCH ×3 (07:40→16:55)
[2019-08-18] MEDS: Mometasone/Formoter 100/5 MDI INH SCH ×2 (09:06→21:10)
[2019-08-18] MEDS: DULoxetine DR CAP* 60 MG CAP.DR PO SCH (09:07)
[2019-08-18] MEDS: Cholecalciferol TAB* 1000 UNITS PO SCH (09:07)
[2019-08-18] MEDS: Metoprolol Succinate XL TAB* 50 MG PO SCH (09:07)
[2019-08-18] MEDS: Pantoprazole TAB * 40 MG TAB PO SCH (09:07)
[2019-08-18] MEDS: metFORMIN* 1,000 MG TAB PO SCH ×2 (09:07→16:52)
[2019-08-18] MEDS: Cyanocobalamin TAB* 500 MCG PO SCH (09:07)
[2019-08-18] MEDS: glipiZIDE TAB.XL* 5 MG PO SCH (09:07)
[2019-08-18] MEDS: Potassium Chlor TAB* 20 MEQ TAB.ER PO SCH (09:07)
[2019-08-18] MEDS: Furosemide TAB* 20 MG PO SCH (09:07)
[2019-08-18] MEDS: Diltiazem CD CAP* 120 MG PO SCH (09:08)
[2019-08-18] MEDS: Apixaban* 5 MG TAB PO SCH ×2 (09:08→21:07)
[2019-08-18] MEDS: Nystatin TOP POWDER* 15 GM BTL TOPICAL SCH ×2 (09:09→21:11)
[2019-08-18 11:42] LABS: Albumin 2.8 g/dL (3.2-5.2); Albumin/Globulin Ratio 1.5 (1-3); BUN/Creatinine Ratio 13.3 (8-20); Calcium 8.4 mg/dL (8.6-10.3); EGFR African American 124.6 (>60); Globulin 1.9 g/dL (2-4); Potassium 3.7 mmol/L (3.5-5.0); Total Bilirubin 0.9 mg/dL (0.2-1.0); Total Protein 4.7 g/dL (6.4-8.9)
[2019-08-18 13:35] LABS: Immunoglobulin A 8 mg/dL (61 - 356); Immunoglobulin G 391 mg/dL (767 - 1590); Immunoglobulin M 22 mg/dL (37 - 286)
[2019-08-18 14:56] LABS: Albumin 2.3 g/dL (3.4-4.7); Albumin/Globulin Ratio 1.02; Gamma Globulin 0.4 g/dL (0.6-1.6); Total Protein(PEP) 4.6 g/dL (6.3 - 7.9)
[2019-08-18] MEDS: Atorvastatin* 10 MG TAB PO SCH (16:52)
--- NOTE | 2019-08-18 18:49 | PN ---
Progress Note Date of Service: 08/18/19 Note: KELSI BLAIR was visited. Therapy notes read and reviewed. 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 Still, this is progress. CT scan done. Results will be reviewed by Oncology Current Medications: Active Medications Generic Name Dose Route Start Last Admin Trade Name Freq PRN Reason Stop Dose Admin Acetaminophen 650 mg 08/05/19 12:17 08/17/19 05:57 Tylenol Tab* PO 650 mg Q6H PRN Administration MILD PAIN or TEMP > 100.4 Albuterol/Ipratropium 1 neb 08/05/19 14:10 Duoneb (Albuterol 2.5 Mg/Ipratropium 0.5 Mg) INH Q6H PRN SOB/WHEEZING Apixaban 5 mg 08/16/19 09:00 08/18/19 09:08 Eliquis* PO 5 mg BID HERMAN Administration Atorvastatin Calcium 10 mg 08/05/19 17:00 08/18/19 16:52 Lipitor* PO 10 mg 1700 HERMAN Administration Cholecalciferol 2,000 units 08/06/19 09:00 08/18/19 09:07 Vitamin D Tab* PO 2,000 units DAILY HERMAN Administration Cyanocobalamin 1,000 mcg 08/06/19 09:00 08/18/19 09:07 Vitamin B12 Tab* PO 1,000 mcg DAILY HERMAN Administration Dextrose 12.5 gm 08/05/19 17:39 D50w Syringe 50 Ml* IV PUSH .FOR FS < 60 - SS PRN FS < 60 Diclofenac Sodium 1 applic 08/07/19 08:46 08/07/19 21:41 Voltaren 1% Gel (Nf) TOPICAL 1 applic QID PRN Administration Pain - Moderate back pain Protocol Diltiazem HCl 120 mg 08/06/19 09:00 08/18/19 09:08 Cardizem Cd Cap* PO 120 mg DAILY HERMAN Administration Docusate Sodium 100 mg 08/16/19 12:29 Colace Cap* PO BID PRN CONSTIPATION Duloxetine HCl 60 mg 08/06/19 09:00 08/18/19 09:07 Cymbalta Cap* PO 60 mg DAILY HERMAN Administration Furosemide 20 mg 08/06/19 09:00 08/18/19 09:07 Lasix Tab* PO 20 mg DAILY HERMAN Administration Gabapentin 300 mg 08/05/19 21:00 08/17/19 20:06 Neurontin Cap(*) PO 300 mg 2100 HREMAN Administration Glipizide 5 mg 08/06/19 09:00 08/18/19 09:07 Glucotrol Xl* PO 5 mg DAILY HERMAN Administration Insulin Human Lispro 0 - 12 units 08/06/19 07:30 08/18/19 16:55 Humalog* SUBCUT Not Given AC [facility] Protocol Lorazepam 0.5 mg 08/06/19 11:08 08/09/19 23:59 Ativan Tab(*) PO 0.5 mg BID PRN Administration ANXIETY Magnesium Hydroxide 30 ml 08/05/19 12:17 08/08/19 20:02 Milk Of Magnesia Liq* PO 30 ml Q6H PRN Administration CONSTIPATION Metformin HCl 1,000 mg 08/05/19 17:00 08/18/19 16:52 Glucophage* PO 1,000 mg 0800,1700 HERMAN Administration Metoprolol Succinate 50 mg 08/06/19 09:00 08/18/19 09:07 Toprol Xl Tab* PO 50 mg DAILY HERMAN Administration Mometasone Furoate/Formoterol Fumar 2 puff 08/05/19 21:00 08/18/19 09:06 Dulera 100/5 Mdi* INH 2 puff BID HERMAN Administration Morphine Sulfate 15 mg 08/15/19 21:00 08/18/19 14:29 Ms Contin(*) PO 15 mg Q12H PRN Administration PAIN - SEVERE Nystatin 1 applic 08/05/19 21:00 08/18/19 09:09 Nystatin Top Powder* TOPICAL 1 applic BID HERMAN Administration Pantoprazole Sodium 40 mg 08/06/19 09:00 08/18/19 09:07 Protonix Tab* PO 40 mg DAILY HERMAN Administration Polyethylene Glycol/Electrolytes 17 gm 08/16/19 16:57 Miralax (17 Gm Dose Fransico) PO 0800,2100 PRN CONSTIPATION Potassium Chloride 20 meq 08/06/19 09:00 08/18/19 09:07 Klor Con Er Tab* PO 20 meq DAILY HERMAN Administration Senna 2 tab 08/05/19 12:17 Senokot 8.6 Mg Tab* PO BEDTIME PRN CONSTIPATION Tamsulosin HCl 0.4 mg 08/06/19 21:00 08/17/19 20:07 Flomax Cap* PO 0.4 mg BEDTIME HERMAN Administration Vital Signs: Vital Signs Temp Pulse Resp BP Pulse Ox 98.6 F 71 20 147/67 100 08/18/19 16:06 08/18/19 16:06 08/18/19 16:52 08/18/19 16:06 08/18/19 16:06 Lab Results: Laboratory Results - last 24 hr 08/17/19 08/17/19 08/17/19 06:17 06:19 07:29 Sodium 143 Potassium 3.7 Chloride 107 Carbon Dioxide 29 Anion Gap 7 BUN 10 Creatinine 0.75 Est GFR ( Amer) 124.6 Est GFR (Non-Af Amer) 103.0 BUN/Creatinine Ratio 13.3 Glucose 85 POC Glucose (mg/dL) 103 H Calcium 8.4 L Magnesium 1.7 L Total Bilirubin 0.90 AST 13 ALT 9 Alkaline Phosphatase 139 H Total Protein 4.7 L Total Protein (PEP) 4.6 L Albumin 2.8 L Albumin (PEP) 2.3 L Globulin 1.9 L Albumin/Globulin Ratio 1.5 Albumin/Globulin (PEP) 1.02 Xooge-8-Pmxuwbgqh 0.4 H Zzwtg-7-Veizpeqwi 0.8 Ewwn-5-Xdlemphn 0.7 Gamma Globulins 0.4 L M-Carroll Not Reportable M-Carroll 2 Not Reportable PEP Impression See comment IgG 391 L IgA 8 L IgM 22 L [place] Light Chain 0.6720 Lambda Light Chain 0.7530 [place]/Lambda Ratio 0.8924 08/17/19 08/17/19 08/17/19 12:17 16:02 16:22 Sodium Potassium Chloride Carbon Dioxide Anion Gap BUN Creatinine Est GFR ( Amer) Est GFR (Non-Af Amer) BUN/Creatinine Ratio Glucose POC Glucose (mg/dL) 103 H 64 L 73 Calcium Magnesium Total Bilirubin AST ALT Alkaline Phosphatase Total Protein Total Protein (PEP) Albumin Albumin (PEP) Globulin Albumin/Globulin Ratio Albumin/Globulin (PEP) Yrdkz-0-Cclzcvzig Twexo-6-Vimvqgmwb Otlk-1-Ycoqakws Gamma Globulins M-Carroll M-Carroll 2 PEP Impression IgG IgA IgM [place] Light Chain Lambda Light Chain [place]/Lambda Ratio 08/18/19 07:40 Sodium Potassium Chloride Carbon Dioxide Anion Gap BUN Creatinine Est GFR ( Amer) Est GFR (Non-Af Amer) BUN/Creatinine Ratio Glucose POC Glucose (mg/dL) 110 H Calcium Magnesium Total Bilirubin AST ALT Alkaline Phosphatase Total Protein Total Protein (PEP) Albumin Albumin (PEP) Globulin Albumin/Globulin Ratio Albumin/Globulin (PEP) Didtm-9-Vnpixhkqi Hkdbz-3-Fkfrdiypm Seej-1-Sachwcqg Gamma Globulins M-Carroll M-Carroll 2 PEP Impression IgG IgA IgM [place] Light Chain Lambda Light Chain [place]/Lambda Ratio Exam: GENERAL: No acute distress. Alert and appropriate. LUNGS: decreased breath sounds consistent with COPD bilaterally. HEART: irregularly irregular. ABDOMEN: + bowel sounds, soft, non-tender, non-distended EXTREMITIES: Bilateral UE and LE ecchymoses. Mild edema. NEUROLOGIC : BUE motor 5/5 except 4/5 right ADM. LLE motor hip flexion 2, knee ext 2, DF 4, EHL 4. RLE motor hip flex 1, knee ext 2, DF 4, EHL 4. Impaired sensation in stocking distribution to above knees right greater than left. BACK: wound healing Assessment/Plan: 69yo man s/p L1-5 decompression and fusion after L3 fracture and paraplegia with peripheral neuropathy. 1. S/P L1-5 decompression and fusion: LSO for comfort. Eliquis resumed. f/u with Dr. Herbert 09/01 at 2:30p. PT/OT 2. Analgesia: Has chronic neuropathic pain, on gabapentin. Oxycodone and MS Contin prn. Topical diclofenac for back pain. 3. DVT prophylaxis: has h/o PE. Eliquis resumed. 4. Impaired cognition: working with speech therapy daily, improved. Off routine MS Contin 5. Diabetes mellitus: metformin, glipizide sliding scale lispro. Lantus no longer needed. 6. COPD on home oxygen: oxygen 2L/min. Continue meds. 7. Paroxysmal atrial fibrillation: Eliquis restarted today. Lopressor/Cardizem. 8. Depression/Anxiety: duloxetine. Lorazepam 0.5mg bid prn anxiety if needed to mobilize with therapies. 9. Constipation: Had loose stools the past few daysand had one dose of Imodium. Need to resume Colace 10. Multiple Myeloma: f/u with Dr. Whitmore/Jared Alan 11. Advanced directives: full code. Sergey Parsons is his healthcare proxy if he cannot make decisions himself. 08/18/19 18:50
[2019-08-18] MEDS: Tamsulosin CAP* 0.4 MG PO SCH (21:07)
[2019-08-18] MEDS: Gabapentin CAP(*) 300 MG PO SCH (21:08)
[2019-08-19] MEDS: Acetaminophen TAB* 325 MG PO PRN ×2 (01:45→17:43)
[2019-08-19] MEDS: Insulin LISPRO* 1 UNITS UNIT SUBCUT SCH ×2 (07:23→13:15)
[2019-08-19] MEDS: Nystatin TOP POWDER* 15 GM BTL TOPICAL SCH ×2 (07:30→20:04)
[2019-08-19] MEDS: metFORMIN* 1,000 MG TAB PO SCH ×2 (07:31→17:41)
[2019-08-19] MEDS: Cholecalciferol TAB* 1000 UNITS PO SCH (07:31)
[2019-08-19] MEDS: Furosemide TAB* 20 MG PO SCH (07:31)
[2019-08-19] MEDS: Apixaban* 5 MG TAB PO SCH ×2 (07:31→20:03)
[2019-08-19] MEDS: glipiZIDE TAB.XL* 5 MG PO SCH (07:31)
[2019-08-19] MEDS: DULoxetine DR CAP* 60 MG CAP.DR PO SCH (07:31)
[2019-08-19] MEDS: Potassium Chlor TAB* 20 MEQ TAB.ER PO SCH (07:31)
[2019-08-19] MEDS: Metoprolol Succinate XL TAB* 50 MG PO SCH (07:31)
[2019-08-19] MEDS: Cyanocobalamin TAB* 500 MCG PO SCH (07:31)
[2019-08-19] MEDS: Pantoprazole TAB * 40 MG TAB PO SCH (07:31)
[2019-08-19] MEDS: Diltiazem CD CAP* 120 MG PO SCH (07:31)
[2019-08-19] MEDS: Mometasone/Formoter 100/5 MDI INH SCH ×2 (07:33→20:04)
--- NOTE | 2019-08-19 12:16 | PN ---
Progress Note - Progress Note Date of Service: 08/19/19 SOAP: Subjective: [Reports some recent progress with PT. Struggling some with pain and generally depressed about the current COVID pandemic and his inability to visit with Sergey. ] Objective: [ Vital Signs: Temp Pulse Resp BP Pulse Ox 97.8 F 71 20 148/69 98 08/19/19 05:03 08/19/19 05:03 08/19/19 05:15 08/19/19 05:03 08/19/19 05:03 Acetaminophen (Tylenol Tab*) 650 mg PO Q6H PRN PRN Reason: MILD PAIN or TEMP > 100.4 Last Admin: 08/19/19 01:45 Dose: 650 mg Albuterol/Ipratropium (Duoneb (Albuterol 2.5 Mg/Ipratropium 0.5 Mg)) 1 neb INH Q6H PRN PRN Reason: SOB/WHEEZING Apixaban (Eliquis*) 5 mg PO BID [facility] Last Admin: 08/19/19 07:31 Dose: 5 mg Atorvastatin Calcium (Lipitor*) 10 mg PO 1700 [facility] Last Admin: 08/18/19 16:52 Dose: 10 mg Cholecalciferol (Vitamin D Tab*) 2,000 units PO DAILY [facility] Last Admin: 08/19/19 07:31 Dose: 2,000 units Cyanocobalamin (Vitamin B12 Tab*) 1,000 mcg PO DAILY [facility] Last Admin: 08/19/19 07:31 Dose: 1,000 mcg Dextrose (D50w Syringe 50 Ml*) 12.5 gm IV PUSH .FOR FS < 60 - SS PRN PRN Reason: FS < 60 Diclofenac Sodium (Voltaren 1% Gel (Nf)) 1 applic TOPICAL QID PRN; Protocol PRN Reason: Pain - Moderate back pain Last Admin: 08/07/19 21:41 Dose: 1 applic Diltiazem HCl (Cardizem Cd Cap*) 120 mg PO DAILY [facility] Last Admin: 08/19/19 07:31 Dose: 120 mg Docusate Sodium (Colace Cap*) 100 mg PO BID PRN PRN Reason: CONSTIPATION Duloxetine HCl (Cymbalta Cap*) 60 mg PO DAILY [facility] Last Admin: 08/19/19 07:31 Dose: 60 mg Furosemide (Lasix Tab*) 20 mg PO DAILY [facility] Last Admin: 08/19/19 07:31 Dose: 20 mg Gabapentin (Neurontin Cap(*)) 300 mg PO 2100 [facility] Last Admin: 08/18/19 21:08 Dose: 300 mg Glipizide (Glucotrol Xl*) 5 mg PO DAILY [facility] Last Admin: 08/19/19 07:31 Dose: 5 mg Insulin Human Lispro (Humalog*) 0 - 12 units SUBCUT [facility]; Protocol Last Admin: 08/19/19 07:23 Dose: Not Given Lorazepam (Ativan Tab(*)) 0.5 mg PO BID PRN PRN Reason: ANXIETY Last Admin: 08/09/19 23:59 Dose: 0.5 mg Magnesium Hydroxide (Milk Of Magnesia Liq*) 30 ml PO Q6H PRN PRN Reason: CONSTIPATION Last Admin: 08/08/19 20:02 Dose: 30 ml Metformin HCl (Glucophage*) 1,000 mg PO 0800,1700 [facility] Last Admin: 08/19/19 07:31 Dose: 1,000 mg Metoprolol Succinate (Toprol Xl Tab*) 50 mg PO DAILY [facility] Last Admin: 08/19/19 07:31 Dose: 50 mg Mometasone Furoate/Formoterol Fumar (Dulera 100/5 Mdi*) 2 puff INH BID [facility] Last Admin: 08/19/19 07:33 Dose: 2 puff Morphine Sulfate (Ms Contin(*)) 15 mg PO Q12H PRN PRN Reason: PAIN - SEVERE Last Admin: 08/18/19 14:29 Dose: 15 mg Nystatin (Nystatin Top Powder*) 1 applic TOPICAL BID [facility] Last Admin: 08/19/19 07:30 Dose: 1 applic Pantoprazole Sodium (Protonix Tab*) 40 mg PO DAILY [facility] Last Admin: 08/19/19 07:31 Dose: 40 mg Polyethylene Glycol/Electrolytes (Miralax (17 Gm Dose Fransico)) 17 gm PO 0800,2100 PRN PRN Reason: CONSTIPATION Potassium Chloride (Klor Con Er Tab*) 20 meq PO DAILY [facility] Last Admin: 08/19/19 07:31 Dose: 20 meq Senna (Senokot 8.6 Mg Tab*) 2 tab PO BEDTIME PRN PRN Reason: CONSTIPATION Tamsulosin HCl (Flomax Cap*) 0.4 mg PO BEDTIME [facility] Last Admin: 08/18/19 21:07 Dose: 0.4 mg Laboratory Results - last 24 hr 08/17/19 08/18/19 08/18/19 06:17 12:02 16:54 POC Glucose (mg/dL) 104 H 92 Total Protein (PEP) 4.6 L Albumin (PEP) 2.3 L Albumin/Globulin (PEP) 1.02 Huemc-4-Fddqviruy 0.4 H Bvibi-3-Xcvjfpxna 0.8 Gvca-3-Nuyavtcf 0.7 Gamma Globulins 0.4 L M-Carroll Not Reportable M-Carroll 2 Not Reportable PEP Impression See comment IgG 391 L IgA 8 L IgM 22 L [place] Light Chain 0.6720 Lambda Light Chain 0.7530 [place]/Lambda Ratio 0.8924 08/19/19 07:12 POC Glucose (mg/dL) 91 Total Protein (PEP) Albumin (PEP) Albumin/Globulin (PEP) Hjmxj-1-Symetwvcb Xsiro-9-Diuzpgddd Mgdy-7-Uhtzbbuu Gamma Globulins M-Carroll M-Carroll 2 PEP Impression IgG IgA IgM [place] Light Chain Lambda Light Chain [place]/Lambda Ratio Exam: Gen: Relatively well appearing Resp: even, unlabored respirations Psych: tearful at times Neuro: full assessment not completed, but independently moving all extremities] Assessment: [This is a 69 yo male with MM, IDDM and afib transferred to [facility] 07/24 with concerns for a pathologic fracture now s/p ORIF and fusion 07/27. Surgical pathology negative for malignancy. A large psoas hematoma was recognized with associated anemia. Anticoagulation was held for at least 2 weeks and hematoma stable on imaging prior to dc from [facility]. Anticoagulation has since been resumed during his stay in [facility]. Despite his surgical pathology being negative for malignancy his postoperative imaging remained concerning for an invasive process. Attempted to get a contrast enhanced MRI, but he has a pace maker in place which is MRI compatable and requires the floor representative to be present which is available only on an emergent basis at this point in time. Contrast enhanced CT was instead ordered to expedite evaluation. Soft tissue pictures are of poor quality. Reviewed all available imaging with radiologist, Dr Hammond. Dr Hammond favors the presence of a hematoma as a result of the trauma and compression fractures being the cause of the L3/4 disc space expansion. Reviewed the operative report again in detail which mentions encountering a soft tissue mass which appeared grossly c/w a hematoma. This was resected and sent for pathology which was reported as mostly adipose tissue. Repeat light chains and SPEP have also returned and show no serologic progression. This constellation of information is reassuring that his compression fractures were a result of trauma rather than progressive myeloma. Plan: [1. Lspine fx - s/p fusion and ORIF 07/27 at [facility] with Dr Herbert - see discussion above - appears less likely to be a malignancy related complication - there is no role for radiation at this time 2. Psoas hematoma - anticoagulation has resumed, will need to monitor closely for re-bleeding, but appears stable/improved on CT imaging from yesterday - could alternatively consider IVC filter 3. CAP - recovered 4. Multiple Myeloma - remains serologically stable - He has been off of therapy for ~1 month ([id number] daratumumab/velcade/ dexamethasone 07/21/19) - plan to resume therapy following discharge 5. Afib/ - s/p TAVR and watchman procedure 6. h/o PE 10/2018 - anticoagulated with Eliquis (held for large psoas hematoma, now resumed) - recommend IVC filter if rebleeding occurs Dispo: per PMRU team. Oncology will continue to follow along.
--- NOTE | 2019-08-19 16:32 | PN ---
Progress Note Date of Service: 08/19/19 Note: KELSI BLAIR was visited. Therapy notes read and reviewed. He was able to walk 8 feet in the parallel bars with min assist of 1 person. He still had a lot of trouble getting up out of a chair, but working harder. Mentally is clearer. D/W Oncology and no further XRT needed for his back. Current Medications: Active Medications Generic Name Dose Route Start Last Admin Trade Name Freq PRN Reason Stop Dose Admin Acetaminophen 650 mg 08/05/19 12:17 08/19/19 01:45 Tylenol Tab* PO 650 mg Q6H PRN Administration MILD PAIN or TEMP > 100.4 Albuterol/Ipratropium 1 neb 08/05/19 14:10 Duoneb (Albuterol 2.5 Mg/Ipratropium 0.5 Mg) INH Q6H PRN SOB/WHEEZING Apixaban 5 mg 08/16/19 09:00 08/19/19 07:31 Eliquis* PO 5 mg BID HERMAN Administration Atorvastatin Calcium 10 mg 08/05/19 17:00 08/18/19 16:52 Lipitor* PO 10 mg 1700 HERMAN Administration Cholecalciferol 2,000 units 08/06/19 09:00 08/19/19 07:31 Vitamin D Tab* PO 2,000 units DAILY HERMAN Administration Cyanocobalamin 1,000 mcg 08/06/19 09:00 08/19/19 07:31 Vitamin B12 Tab* PO 1,000 mcg DAILY HERMAN Administration Dextrose 12.5 gm 08/05/19 17:39 D50w Syringe 50 Ml* IV PUSH .FOR FS < 60 - SS PRN FS < 60 Diclofenac Sodium 1 applic 08/07/19 08:46 08/07/19 21:41 Voltaren 1% Gel (Nf) TOPICAL 1 applic QID PRN Administration Pain - Moderate back pain Protocol Diltiazem HCl 120 mg 08/06/19 09:00 08/19/19 07:31 Cardizem Cd Cap* PO 120 mg DAILY HERMAN Administration Docusate Sodium 100 mg 08/16/19 12:29 Colace Cap* PO BID PRN CONSTIPATION Duloxetine HCl 60 mg 08/06/19 09:00 08/19/19 07:31 Cymbalta Cap* PO 60 mg DAILY HERMAN Administration Furosemide 20 mg 08/06/19 09:00 08/19/19 07:31 Lasix Tab* PO 20 mg DAILY HERMAN Administration Gabapentin 300 mg 08/05/19 21:00 08/18/19 21:08 Neurontin Cap(*) PO 300 mg 2100 HERMAN Administration Glipizide 5 mg 08/06/19 09:00 08/19/19 07:31 Glucotrol Xl* PO 5 mg DAILY HERMAN Administration Lorazepam 0.5 mg 08/06/19 11:08 08/09/19 23:59 Ativan Tab(*) PO 0.5 mg BID PRN Administration ANXIETY Magnesium Hydroxide 30 ml 08/05/19 12:17 08/08/19 20:02 Milk Of Magnesia Liq* PO 30 ml Q6H PRN Administration CONSTIPATION Metformin HCl 1,000 mg 08/05/19 17:00 08/19/19 07:31 Glucophage* PO 1,000 mg 0800,1700 HERMAN Administration Metoprolol Succinate 50 mg 08/06/19 09:00 08/19/19 07:31 Toprol Xl Tab* PO 50 mg DAILY HERMAN Administration Mometasone Furoate/Formoterol Fumar 2 puff 08/05/19 21:00 08/19/19 07:33 Dulera 100/5 Mdi* INH 2 puff BID HERMAN Administration Morphine Sulfate 15 mg 08/15/19 21:00 08/18/19 14:29 Ms Contin(*) PO 15 mg Q12H PRN Administration PAIN - SEVERE Nystatin 1 applic 08/05/19 21:00 08/19/19 07:30 Nystatin Top Powder* TOPICAL 1 applic BID HERMAN Administration Pantoprazole Sodium 40 mg 08/06/19 09:00 08/19/19 07:31 Protonix Tab* PO 40 mg DAILY HERMAN Administration Polyethylene Glycol/Electrolytes 17 gm 08/16/19 16:57 Miralax (17 Gm Dose Fransico) PO 0800,2099 PRN CONSTIPATION Potassium Chloride 20 meq 08/06/19 09:00 08/19/19 07:31 Klor Con Er Tab* PO 20 meq DAILY HERMAN Administration Senna 2 tab 08/05/19 12:17 Senokot 8.6 Mg Tab* PO BEDTIME PRN CONSTIPATION Tamsulosin HCl 0.4 mg 08/06/19 21:00 08/18/19 21:07 Flomax Cap* PO 0.4 mg BEDTIME HERMAN Administration Vital Signs: Vital Signs Temp Pulse Resp BP Pulse Ox 98.0 F 70 22 135/56 99 08/19/19 16:01 08/19/19 16:01 08/19/19 16:11 08/19/19 16:01 08/19/19 16:11 Lab Results: Laboratory Results - last 24 hr 08/17/19 08/18/19 08/18/19 06:17 12:02 16:54 POC Glucose (mg/dL) 104 H 92 Ellis Light Chain 0.6720 Lambda Light Chain 0.7530 Ellis/Lambda Ratio 0.8924 08/19/19 07:12 POC Glucose (mg/dL) 91 Ellis Light Chain Lambda Light Chain Ellis/Lambda Ratio Exam: GENERAL: No acute distress. Alert and appropriate. LUNGS: decreased breath sounds consistent with COPD bilaterally. HEART: irregularly irregular. ABDOMEN: + bowel sounds, soft, non-tender, non-distended EXTREMITIES: Bilateral UE and LE ecchymoses. Mild edema. NEUROLOGIC : BUE motor 5/5 except 4/5 right ADM. LLE motor hip flexion 2, knee ext 2, DF 4, EHL 4. RLE motor hip flex 1, knee ext 2, DF 4, EHL 4. Impaired sensation in stocking distribution to above knees right greater than left. BACK: wound healing Assessment/Plan: 69yo man s/p L1-5 decompression and fusion after L3 fracture and paraplegia with peripheral neuropathy. 1. S/P L1-5 decompression and fusion: LSO for comfort. Eliquis resumed. f/u with Dr. Herbert 09/01 at 2:30p. PT/OT 2. Analgesia: Has chronic neuropathic pain, on gabapentin. Oxycodone and MS Contin prn. Topical diclofenac for back pain. 3. DVT prophylaxis: has h/o PE. Eliquis resumed. 4. Impaired cognition: working with speech therapy daily, improved. Off routine MS Contin 5. Diabetes mellitus: metformin, glipizide . 6. COPD on home oxygen: oxygen 2L/min. Continue meds. 7. Paroxysmal atrial fibrillation: Eliquis restarted today. Lopressor/Cardizem. 8. Depression/Anxiety: duloxetine. Lorazepam 0.5mg bid prn anxiety if needed to mobilize with therapies. 9. Constipation: Had loose stools and had one dose of Imodium. Need to resume Colace. Had BM today 10. Multiple Myeloma: f/u with Dr. Whitmore/Jared Alan 11. Advanced directives: full code. Sergey Dickenstison is his healthcare proxy if he cannot make decisions himself. 08/19/19 16:33
[2019-08-19] MEDS: Atorvastatin* 10 MG TAB PO SCH (17:41)
[2019-08-19] MEDS: Gabapentin CAP(*) 300 MG PO SCH (20:03)
[2019-08-19] MEDS: Docusate CAP* 100 MG PO SCH (20:03)
[2019-08-19] MEDS: Tamsulosin CAP* 0.4 MG PO SCH (20:03)
[2019-08-19] MEDS: diPHENhydraMINE PO* 25 MG PO PRN (20:05)
[2019-08-19] MEDS: LORazepam TAB(*) 0.5 MG PO PRN (21:27)
[2019-08-19] MEDS: Methocarbamol TAB* 500 MG PO PRN (22:21)
[2019-08-20 05:26] LABS: ABS Eosinophils 0.1 10^3/ul (0-0.6); ABS Lymphocytes 1.3 10^3/ul (1.0-4.8); ABS Monocytes 0.6 10^3/ul (0-0.8); ABS Neutrophils 3.4 10^3/ul (1.5-7.7); Eosinophil % 1.5 %; Hematocrit 31 % (42-52); Hemoglobin 10.2 g/dL (14.0-18.0); Lymphocyte % 24.9 %; Mean Corpuscular HGB Conc 33 g/dL (31-36); Mean Corpuscular Hemoglobin 27 pg (27-31); Mean Corpuscular Volume 84 fL (80-94); Mean Platelet Volume 8.2 fL (7.4-10.4); Nucleated Red Blood Cells % 0.1; Platelet Count 178 10^3/uL (150-450); Red Blood Count 3.75 10^6 /uL (4.18-5.48); Red Cell Distribution Width 18 % (10-15); White Blood Count 5.4 10^3/uL (3.5-10.8)
[2019-08-20 05:42] LABS: Albumin 2.8 g/dL (3.2-5.2); Albumin/Globulin Ratio 1.8 (1-3); BUN/Creatinine Ratio 18.3 (8-20); Calcium 7.8 mg/dL (8.6-10.3); EGFR African American 112.4 (>60); EGFR Non-African American 92.9 (>60); Globulin 1.6 g/dL (2-4); Potassium 3.7 mmol/L (3.5-5.0); Total Protein 4.4 g/dL (6.4-8.9)
[2019-08-20] MEDS: Apixaban* 5 MG TAB PO SCH (08:08)
[2019-08-20] MEDS: Cyanocobalamin TAB* 500 MCG PO SCH (08:08)
[2019-08-20] MEDS: Diltiazem CD CAP* 120 MG PO SCH (08:08)
[2019-08-20] MEDS: Furosemide TAB* 20 MG PO SCH (08:08)
[2019-08-20] MEDS: Metoprolol Succinate XL TAB* 50 MG PO SCH (08:08)
[2019-08-20] MEDS: Potassium Chlor TAB* 20 MEQ TAB.ER PO SCH (08:08)
[2019-08-20] MEDS: Pantoprazole TAB * 40 MG TAB PO SCH (08:08)
[2019-08-20] MEDS: Cholecalciferol TAB* 1000 UNITS PO SCH (08:08)
[2019-08-20] MEDS: DULoxetine DR CAP* 60 MG CAP.DR PO SCH (08:09)
[2019-08-20] MEDS: Docusate CAP* 100 MG PO SCH ×2 (08:09→20:45)
[2019-08-20] MEDS: glipiZIDE TAB.XL* 5 MG PO SCH (08:09)
[2019-08-20] MEDS: Mometasone/Formoter 100/5 MDI INH SCH ×2 (08:09→20:50)
[2019-08-20] MEDS: metFORMIN* 1,000 MG TAB PO SCH ×2 (08:09→17:27)
[2019-08-20] MEDS: Nystatin TOP POWDER* 15 GM BTL TOPICAL SCH ×2 (08:29→22:38)
--- NOTE | 2019-08-20 13:00 | PN ---
Progress Note - Progress Note Date of Service: 08/20/19 SOAP: Subjective: []He continues to have pain but intermittent, 4-12/19. Medication is effective. Starting to do some walking. Remains dependent for self care. Pmhx: increased pain since fall 04/30/19 down stairs with hematoma. Developed progressive pain, anorexia and fatigue. Acetaminophen (Tylenol Tab*) 650 mg PO Q6H PRN PRN Reason: MILD PAIN or TEMP > 100.4 Last Admin: 08/19/19 17:43 Dose: 650 mg Albuterol/Ipratropium (Duoneb (Albuterol 2.5 Mg/Ipratropium 0.5 Mg)) 1 neb INH Q6H PRN PRN Reason: SOB/WHEEZING Apixaban (Eliquis*) 5 mg PO BID [facility] Last Admin: 08/20/19 08:08 Dose: 5 mg Atorvastatin Calcium (Lipitor*) 10 mg PO 1700 [facility] Last Admin: 08/19/19 17:41 Dose: 10 mg Cholecalciferol (Vitamin D Tab*) 2,000 units PO DAILY [facility] Last Admin: 08/20/19 08:08 Dose: 2,000 units Cyanocobalamin (Vitamin B12 Tab*) 1,000 mcg PO DAILY [facility] Last Admin: 08/20/19 08:08 Dose: 1,000 mcg Dextrose (D50w Syringe 50 Ml*) 12.5 gm IV PUSH .FOR FS < 60 - SS PRN PRN Reason: FS < 60 Diclofenac Sodium (Voltaren 1% Gel (Nf)) 1 applic TOPICAL QID PRN; Protocol PRN Reason: Pain - Moderate back pain Last Admin: 08/07/19 21:41 Dose: 1 applic Diltiazem HCl (Cardizem Cd Cap*) 120 mg PO DAILY [facility] Last Admin: 08/20/19 08:08 Dose: 120 mg Diphenhydramine HCl (Benadryl Po*) 25 mg PO BEDTIME PRN PRN Reason: INSOMNIA Last Admin: 08/19/19 20:05 Dose: 25 mg Docusate Sodium (Colace Cap*) 100 mg PO BID [facility] Last Admin: 08/20/19 08:09 Dose: 100 mg Duloxetine HCl (Cymbalta Cap*) 60 mg PO DAILY [facility] Last Admin: 08/20/19 08:09 Dose: 60 mg Furosemide (Lasix Tab*) 20 mg PO DAILY [facility] Last Admin: 08/20/19 08:08 Dose: 20 mg Gabapentin (Neurontin Cap(*)) 300 mg PO 2099 [facility] Last Admin: 08/19/19 20:03 Dose: 300 mg Glipizide (Glucotrol Xl*) 5 mg PO DAILY [facility] Last Admin: 08/20/19 08:09 Dose: 5 mg Lorazepam (Ativan Tab(*)) 0.5 mg PO BID PRN PRN Reason: ANXIETY Last Admin: 08/19/19 21:27 Dose: 0.5 mg Magnesium Hydroxide (Milk Of Magnesia Liq*) 30 ml PO Q6H PRN PRN Reason: CONSTIPATION Last Admin: 08/08/19 20:02 Dose: 30 ml Metformin HCl (Glucophage*) 1,000 mg PO 0800,1700 [facility] Last Admin: 08/20/19 08:09 Dose: 1,000 mg Methocarbamol (Robaxin Tab*) 750 mg PO TID PRN PRN Reason: SPASMS - BACK Last Admin: 08/19/19 22:21 Dose: 750 mg Metoprolol Succinate (Toprol Xl Tab*) 50 mg PO DAILY [facility] Last Admin: 08/20/19 08:08 Dose: 50 mg Mometasone Furoate/Formoterol Fumar (Dulera 100/5 Mdi*) 2 puff INH BID [facility] Last Admin: 08/20/19 08:09 Dose: 2 puff Morphine Sulfate (Ms Contin(*)) 15 mg PO Q12H PRN PRN Reason: PAIN - SEVERE Last Admin: 08/18/19 14:29 Dose: 15 mg Nystatin (Nystatin Top Powder*) 1 applic TOPICAL BID [facility] Last Admin: 08/20/19 08:29 Dose: 1 applic Pantoprazole Sodium (Protonix Tab*) 40 mg PO DAILY [facility] Last Admin: 08/20/19 08:08 Dose: 40 mg Polyethylene Glycol/Electrolytes (Miralax (17 Gm Dose Fransico)) 17 gm PO 0800,2100 PRN PRN Reason: CONSTIPATION Potassium Chloride (Klor Con Er Tab*) 20 meq PO DAILY [facility] Last Admin: 08/20/19 08:08 Dose: 20 meq Senna (Senokot 8.6 Mg Tab*) 2 tab PO BEDTIME PRN PRN Reason: CONSTIPATION Tamsulosin HCl (Flomax Cap*) 0.4 mg PO BEDTIME HERMAN Last Admin: 08/19/19 20:03 Dose: 0.4 mg Objective: [] Vital Signs Temp Pulse Resp BP Pulse Ox 98.8 F 70 28 144/60 99 08/20/19 05:34 08/20/19 05:34 08/20/19 05:34 08/20/19 05:34 08/20/19 05:34 Exam: Gen: Relatively well appearing Resp: CTA Psych: conversational. Neuro: full assessment not completed, but independently moving all extremities] CT scans and PET from 05/2019 to present reviewed with radiology. SPEP, SFLC stable. Assessment: [This is a 69 yo male with MM, IDDM and afib transferred to [facility] 07/24 with concerns for a pathologic fracture now s/p ORIF and fusion 07/27. Surgical pathology negative for malignancy. A large psoas hematoma was recognized with associated anemia. Anticoagulation was held for at least 2 weeks and hematoma stable on imaging prior to dc from [facility]. Anticoagulation has since been resumed during his stay in [facility]. Slow recovery after surgery for cord compression. Appears to have had fracture and hematoma from fall, cannot rule out progressive MM but less likely. Plan: [1. Lspine fx - s/p fusion and ORIF 07/27 [address] [facility] with Dr Herbert - Obtain MRI from [facility] 2. Psoas hematoma - anticoagulation has resumed, will need to monitor closely for re-bleeding, but appears stable/improved on CT imaging. - for re-bleeding, IVC filter 3. CAP - recovered 4. Multiple Myeloma - remains serologically stable - He has been off of therapy for ~1 month ([id number] daratumumab/velcade/ dexamethasone 07/21/19) - plan to resume therapy following discharge - Once available, will need MRI LS spine. 5. Afib/ - s/p TAVR and watchman procedure 6. h/o PE 10/2018 - anticoagulated with Eliquis (held for large psoas hematoma, now resumed) - given time from thrombus, go to 2.5 mg po bid. 7. Discussed with partner, likely NHP for self care.
--- NOTE | 2019-08-20 13:28 | PN ---
Progress Note Date of Service: 08/20/19 Note: KELSI BLAIR was visited. Nursing and therapy notes read and reviewed. No chest pain, shortness of breath or abdominal pain. Dr. Whitmore visited today. Current Medications: Active Medications Generic Name Dose Route Start Last Admin Trade Name Freq PRN Reason Stop Dose Admin Acetaminophen 650 mg 08/05/19 12:17 08/19/19 17:43 Tylenol Tab* PO 650 mg Q6H PRN Administration MILD PAIN or TEMP > 100.4 Albuterol/Ipratropium 1 neb 08/05/19 14:10 Duoneb (Albuterol 2.5 Mg/Ipratropium 0.5 Mg) INH Q6H PRN SOB/WHEEZING Apixaban 5 mg 08/16/19 09:00 08/20/19 08:08 Eliquis* PO 5 mg BID HERMAN Administration Atorvastatin Calcium 10 mg 08/05/19 17:00 08/19/19 17:41 Lipitor* PO 10 mg 1700 HERMAN Administration Cholecalciferol 2,000 units 08/06/19 09:00 08/20/19 08:08 Vitamin D Tab* PO 2,000 units DAILY HERMAN Administration Cyanocobalamin 1,000 mcg 08/06/19 09:00 08/20/19 08:08 Vitamin B12 Tab* PO 1,000 mcg DAILY HERMAN Administration Dextrose 12.5 gm 08/05/19 17:39 D50w Syringe 50 Ml* IV PUSH .FOR FS < 60 - SS PRN FS < 60 Diclofenac Sodium 1 applic 08/07/19 08:46 08/07/19 21:41 Voltaren 1% Gel (Nf) TOPICAL 1 applic QID PRN Administration Pain - Moderate back pain Protocol Diltiazem HCl 120 mg 08/06/19 09:00 08/20/19 08:08 Cardizem Cd Cap* PO 120 mg DAILY HERMAN Administration Diphenhydramine HCl 25 mg 08/19/19 16:42 08/19/19 20:05 Benadryl Po* PO 25 mg BEDTIME PRN Administration INSOMNIA Docusate Sodium 100 mg 08/19/19 21:00 08/20/19 08:09 Colace Cap* PO 100 mg BID HERMAN Administration Duloxetine HCl 60 mg 08/06/19 09:00 08/20/19 08:09 Cymbalta Cap* PO 60 mg DAILY HERMAN Administration Furosemide 20 mg 08/06/19 09:00 08/20/19 08:08 Lasix Tab* PO 20 mg DAILY HERMAN Administration Gabapentin 300 mg 08/05/19 21:00 08/19/19 20:03 Neurontin Cap(*) PO 300 mg 2100 HERMAN Administration Glipizide 5 mg 08/06/19 09:00 08/20/19 08:09 Glucotrol Xl* PO 5 mg DAILY HERMAN Administration Lorazepam 0.5 mg 08/06/19 11:08 08/19/19 21:27 Ativan Tab(*) PO 0.5 mg BID PRN Administration ANXIETY Magnesium Hydroxide 30 ml 08/05/19 12:17 08/08/19 20:02 Milk Of Magnesia Liq* PO 30 ml Q6H PRN Administration CONSTIPATION Metformin HCl 1,000 mg 08/05/19 17:00 08/20/19 08:09 Glucophage* PO 1,000 mg 0800,1700 HERMAN Administration Methocarbamol 750 mg 08/19/19 21:41 08/19/19 22:21 Robaxin Tab* PO 750 mg TID PRN Administration SPASMS - BACK Metoprolol Succinate 50 mg 08/06/19 09:00 08/20/19 08:08 Toprol Xl Tab* PO 50 mg DAILY HERMAN Administration Mometasone Furoate/Formoterol Fumar 2 puff 08/05/19 21:00 08/20/19 08:09 Dulera 100/5 Mdi* INH 2 puff BID HERMAN Administration Morphine Sulfate 15 mg 08/15/19 21:00 08/18/19 14:29 Ms Contin(*) PO 15 mg Q12H PRN Administration PAIN - SEVERE Nystatin 1 applic 08/05/19 21:00 08/20/19 08:29 Nystatin Top Powder* TOPICAL 1 applic BID HERMAN Administration Pantoprazole Sodium 40 mg 08/06/19 09:00 08/20/19 08:08 Protonix Tab* PO 40 mg DAILY HERMAN Administration Polyethylene Glycol/Electrolytes 17 gm 08/16/19 16:57 Miralax (17 Gm Dose Fransico) PO 0800,2100 PRN CONSTIPATION Potassium Chloride 20 meq 08/06/19 09:00 08/20/19 08:08 Klor Con Er Tab* PO 20 meq DAILY HERMAN Administration Senna 2 tab 03/26/20 12:17 Senokot 8.6 Mg Tab* PO BEDTIME PRN CONSTIPATION Tamsulosin HCl 0.4 mg 08/06/19 21:00 08/19/19 20:03 Flomax Cap* PO 0.4 mg BEDTIME HERMAN Administration Vital Signs: Vital Signs Temp Pulse Resp BP Pulse Ox 98.8 F 70 28 144/60 99 08/20/19 05:34 08/20/19 05:34 08/20/19 05:34 08/20/19 05:34 08/20/19 05:34 Lab Results: Laboratory Results - last 24 hr 08/20/19 08/20/19 04:56 04:56 WBC 5.4 RBC 3.75 L Hgb 10.2 L Hct 31 L MCV 84 MCH 27 MCHC 33 RDW 18 H Plt Count 178 MPV 8.2 Neut % (Auto) 61.8 Lymph % (Auto) 24.9 Bradford % (Auto) 11.1 Eos % (Auto) 1.5 Baso % (Auto) 0.7 Absolute Neuts (auto) 3.4 Absolute Lymphs (auto) 1.3 Absolute Monos (auto) 0.6 Absolute Eos (auto) 0.1 Absolute Basos (auto) 0.0 Absolute Nucleated RBC 0.0 Nucleated RBC % 0.1 Sodium 141 Potassium 3.7 Chloride 104 Carbon Dioxide 30 Anion Gap 7 BUN 15 Creatinine 0.82 Est GFR ( Amer) 112.4 Est GFR (Non-Af Amer) 92.9 BUN/Creatinine Ratio 18.3 Glucose 87 Calcium 7.8 L Total Bilirubin 1.00 AST 9 L ALT 8 Alkaline Phosphatase 124 H Total Protein 4.4 L Albumin 2.8 L Globulin 1.6 L Albumin/Globulin Ratio 1.8 Exam: GENERAL: No acute distress. Alert and appropriate. LUNGS: decreased breath sounds consistent with COPD bilaterally. HEART: irregularly irregular. ABDOMEN: + bowel sounds, soft, non-tender, non-distended EXTREMITIES: Mild edema. NEUROLOGIC : BUE motor 5/5 except 4/5 right ADM. LLE motor hip flexion 2, knee ext 2, DF 4, EHL 4. RLE motor hip flex 1, knee ext 2, DF 4, EHL 4. Impaired sensation in stocking distribution to above knees right greater than left. BACK: surgical wound with 2 areas of mild slough and a 3rd area higher also with small slough. Looks clean. Assessment/Plan: 69yo man s/p L1-5 decompression and fusion after L3 fracture and paraplegia with peripheral neuropathy. 1. S/P L1-5 decompression and fusion: LSO for comfort. Eliquis resumed. f/u with Dr. Herbert 09/01 at 2:30p. PT/OT 2. Analgesia: Has chronic neuropathic pain, on gabapentin. Oxycodone and MS Contin prn. Topical diclofenac for back pain. 3. DVT prophylaxis: has h/o PE. Eliquis resumed but given that he is over a year out from PE per Dr. Whitmore can now decrease to 2.5mg bid. 4. Impaired cognition: working with speech therapy daily, improved. Off routine MS Contin 5. Diabetes mellitus: metformin, glipizide 6. COPD on home oxygen: oxygen 2L/min. Continue meds. 7. Paroxysmal atrial fibrillation: Eliquis restarted, but per Dr. Whitmore can now go down to 2.5mg bid since he had a watchman procedure. Lopressor/Cardizem. 8. Depression/Anxiety: duloxetine. Lorazepam 0.5mg bid prn anxiety if needed to mobilize with therapies. 9. Constipation: Had loose stools and had one dose of Imodium. Resumed Colace. 10. Multiple Myeloma: f/u with Dr. Whitmore/Jared Alan. See their notes. Appreciate f/u. 11. Advanced directives: full code. Sergey Parsons is his healthcare proxy if he cannot make decisions himself. 08/20/19 13:37
[2019-08-20] MEDS: Acetaminophen TAB* 325 MG PO PRN (14:44)
[2019-08-20] MEDS: Atorvastatin* 10 MG TAB PO SCH (17:27)
[2019-08-20] MEDS: Tamsulosin CAP* 0.4 MG PO SCH (20:45)
[2019-08-20] MEDS: Gabapentin CAP(*) 300 MG PO SCH (20:45)
[2019-08-20] MEDS: Apixaban* 2.5 MG TAB PO SCH (20:45)
[2019-08-20] MEDS: diPHENhydraMINE PO* 25 MG PO PRN (20:45)
[2019-08-21] MEDS: Mometasone/Formoter 100/5 MDI INH SCH ×2 (08:40→21:14)
[2019-08-21] MEDS: metFORMIN* 1,000 MG TAB PO SCH ×2 (08:43→16:56)
[2019-08-21] MEDS: Apixaban* 2.5 MG TAB PO SCH ×2 (08:44→21:12)
[2019-08-21] MEDS: Cyanocobalamin TAB* 500 MCG PO SCH (08:44)
[2019-08-21] MEDS: Cholecalciferol TAB* 1000 UNITS PO SCH (08:44)
[2019-08-21] MEDS: Furosemide TAB* 20 MG PO SCH (08:45)
[2019-08-21] MEDS: Docusate CAP* 100 MG PO SCH ×2 (08:45→20:11)
[2019-08-21] MEDS: Diltiazem CD CAP* 120 MG PO SCH (08:45)
[2019-08-21] MEDS: DULoxetine DR CAP* 60 MG CAP.DR PO SCH (08:45)
[2019-08-21] MEDS: glipiZIDE TAB.XL* 5 MG PO SCH (08:46)
[2019-08-21] MEDS: Metoprolol Succinate XL TAB* 50 MG PO SCH (08:46)
[2019-08-21] MEDS: Potassium Chlor TAB* 20 MEQ TAB.ER PO SCH (08:46)
[2019-08-21] MEDS: Pantoprazole TAB * 40 MG TAB PO SCH (08:46)
[2019-08-21] MEDS: Nystatin TOP POWDER* 15 GM BTL TOPICAL SCH ×2 (08:46→21:16)
--- NOTE | 2019-08-21 11:12 | PN ---
Progress Note Date of Service: 08/21/19 Note: KELSI BLAIR was visited. Nursing and therapy notes read and reviewed. No chest pain, shortness of breath or abdominal pain. Current Medications: Active Medications Generic Name Dose Route Start Last Admin Trade Name Freq PRN Reason Stop Dose Admin Acetaminophen 650 mg 08/05/19 12:17 08/20/19 14:44 Tylenol Tab* PO 650 mg Q6H PRN Administration MILD PAIN or TEMP > 100.4 Albuterol/Ipratropium 1 neb 08/05/19 14:10 Duoneb (Albuterol 2.5 Mg/Ipratropium 0.5 Mg) INH Q6H PRN SOB/WHEEZING Apixaban 2.5 mg 08/20/19 21:00 08/21/19 08:44 Eliquis* PO 2.5 mg BID HERMAN Administration Atorvastatin Calcium 10 mg 08/05/19 17:00 08/20/19 17:27 Lipitor* PO 10 mg 1700 HERMAN Administration Cholecalciferol 2,000 units 08/06/19 09:00 08/21/19 08:44 Vitamin D Tab* PO 2,000 units DAILY HERMAN Administration Cyanocobalamin 1,000 mcg 08/06/19 09:00 08/21/19 08:44 Vitamin B12 Tab* PO 1,000 mcg DAILY HERMAN Administration Dextrose 12.5 gm 08/05/19 17:39 D50w Syringe 50 Ml* IV PUSH .FOR FS < 60 - SS PRN FS < 60 Diclofenac Sodium 1 applic 08/07/19 08:46 08/07/19 21:41 Voltaren 1% Gel (Nf) TOPICAL 1 applic QID PRN Administration Pain - Moderate back pain Protocol Diltiazem HCl 120 mg 08/06/19 09:00 08/21/19 08:45 Cardizem Cd Cap* PO 120 mg DAILY HERMAN Administration Diphenhydramine HCl 25 mg 08/19/19 16:42 08/20/19 20:45 Benadryl Po* PO 25 mg BEDTIME PRN Administration INSOMNIA Docusate Sodium 100 mg 08/19/19 21:00 08/21/19 08:45 Colace Cap* PO 100 mg BID HERMAN Administration Duloxetine HCl 60 mg 08/06/19 09:00 08/21/19 08:45 Cymbalta Cap* PO 60 mg DAILY HERMAN Administration Furosemide 20 mg 08/06/19 09:00 08/21/19 08:45 Lasix Tab* PO 20 mg DAILY HERMAN Administration Gabapentin 300 mg 08/05/19 21:00 08/20/19 20:45 Neurontin Cap(*) PO 300 mg 2100 HERMAN Administration Glipizide 5 mg 08/06/19 09:00 08/21/19 08:46 Glucotrol Xl* PO 5 mg DAILY HERMAN Administration Lorazepam 0.5 mg 08/06/19 11:08 08/19/19 21:27 Ativan Tab(*) PO 0.5 mg BID PRN Administration ANXIETY Magnesium Hydroxide 30 ml 08/05/19 12:17 08/08/19 20:02 Milk Of Magnesia Liq* PO 30 ml Q6H PRN Administration CONSTIPATION Metformin HCl 1,000 mg 08/05/19 17:00 08/21/19 08:43 Glucophage* PO 1,000 mg 0800,1700 HERMAN Administration Methocarbamol 750 mg 08/19/19 21:41 08/19/19 22:21 Robaxin Tab* PO 750 mg TID PRN Administration SPASMS - BACK Metoprolol Succinate 50 mg 08/06/19 09:00 08/21/19 08:46 Toprol Xl Tab* PO 50 mg DAILY HERMAN Administration Mometasone Furoate/Formoterol Fumar 2 puff 08/05/19 21:00 08/21/19 08:40 Dulera 100/5 Mdi* INH 2 puff BID HERMAN Administration Morphine Sulfate 15 mg 08/15/19 21:00 08/18/19 14:29 Ms Contin(*) PO 15 mg Q12H PRN Administration PAIN - SEVERE Nystatin 1 applic 08/05/19 21:00 08/21/19 08:46 Nystatin Top Powder* TOPICAL 1 applic BID HERMAN Administration Pantoprazole Sodium 40 mg 08/06/19 09:00 08/21/19 08:46 Protonix Tab* PO 40 mg DAILY HERMAN Administration Polyethylene Glycol/Electrolytes 17 gm 08/16/19 16:57 Miralax (17 Gm Dose Fransico) PO 0800,2100 PRN CONSTIPATION Potassium Chloride 20 meq 08/06/19 09:00 08/21/19 08:46 Klor Con Er Tab* PO 20 meq DAILY HERMAN Administration Senna 2 tab 08/05/19 12:17 Senokot 8.6 Mg Tab* PO BEDTIME PRN CONSTIPATION Tamsulosin HCl 0.4 mg 08/06/19 21:00 08/20/19 20:45 Flomax Cap* PO 0.4 mg BEDTIME HERMAN Administration Vital Signs: Vital Signs Temp Pulse Resp BP Pulse Ox 97.8 F 73 20 150/67 100 08/21/19 05:38 08/21/19 05:38 08/21/19 09:37 08/21/19 05:38 08/21/19 05:38 Exam: GENERAL: No acute distress. Alert and appropriate. LUNGS: decreased breath sounds consistent with COPD bilaterally. HEART: regular rate and rhythm (has h/o of A.Fib) ABDOMEN: + bowel sounds, soft, non-tender, non-distended EXTREMITIES: Mild BLE edema. NEUROLOGIC : BUE motor 5/5 except 4/5 right ADM. LLE motor hip flexion 2, knee ext 2, DF 4, EHL 4. RLE motor hip flex 1, knee ext 2, DF 4, EHL 4. Impaired sensation in stocking distribution to above knees right greater than left. Assessment/Plan: 69yo man s/p L1-5 decompression and fusion after L3 fracture and paraplegia with peripheral neuropathy. 1. S/P L1-5 decompression and fusion: LSO for comfort. Eliquis resumed. f/u with Dr. Herbert 09/01 at 2:30p. PT/OT 2. Analgesia: Has chronic neuropathic pain, on gabapentin. Oxycodone and MS Contin prn. Topical diclofenac for back pain. 3. DVT prophylaxis: has h/o PE. Eliquis resumed but given that he is over a year out from PE per Dr. Whitmore recommended decrease to 2.5mg bid. 4. Impaired cognition: working with speech therapy daily, improved. Off routine MS Contin 5. Diabetes mellitus: metformin, glipizide 6. COPD on home oxygen: oxygen 2L/min. Continue meds. 7. Paroxysmal atrial fibrillation: Eliquis restarted, but per Dr. Whitmore now 2.5mg bid since he had a watchman procedure. Lopressor/Cardizem. 8. Depression/Anxiety: duloxetine. Lorazepam 0.5mg bid prn anxiety if needed to mobilize with therapies. 9. Constipation: Had loose stools and had one dose of Imodium. Resumed Colace. 10. Multiple Myeloma: f/u with Dr. Whitmore/Jared Alan. See their notes. Appreciate f/u. 11. Advanced directives: full code. Sergey Parsonson is his healthcare proxy if he cannot make decisions himself. 08/21/19 11:11
[2019-08-21] MEDS: Acetaminophen TAB* 325 MG PO PRN ×2 (14:31→21:12)
[2019-08-21] MEDS: Atorvastatin* 10 MG TAB PO SCH (16:56)
[2019-08-21] MEDS: Tamsulosin CAP* 0.4 MG PO SCH (21:10)
[2019-08-21] MEDS: Gabapentin CAP(*) 300 MG PO SCH (21:11)
[2019-08-21] MEDS: diPHENhydraMINE PO* 25 MG PO PRN (21:11)
[2019-08-22] MEDS: metFORMIN* 1,000 MG TAB PO SCH ×2 (08:06→16:37)
[2019-08-22] MEDS: Apixaban* 2.5 MG TAB PO SCH ×2 (08:07→21:29)
[2019-08-22] MEDS: Cholecalciferol TAB* 1000 UNITS PO SCH (08:07)
[2019-08-22] MEDS: Cyanocobalamin TAB* 500 MCG PO SCH (08:08)
[2019-08-22] MEDS: Diltiazem CD CAP* 120 MG PO SCH (08:08)
[2019-08-22] MEDS: glipiZIDE TAB.XL* 5 MG PO SCH (08:09)
[2019-08-22] MEDS: Furosemide TAB* 20 MG PO SCH (08:09)
[2019-08-22] MEDS: Docusate CAP* 100 MG PO SCH ×2 (08:09→21:23)
[2019-08-22] MEDS: DULoxetine DR CAP* 60 MG CAP.DR PO SCH (08:09)
[2019-08-22] MEDS: Metoprolol Succinate XL TAB* 50 MG PO SCH (08:10)
[2019-08-22] MEDS: Mometasone/Formoter 100/5 MDI INH SCH ×2 (08:10→21:37)
[2019-08-22] MEDS: Nystatin TOP POWDER* 15 GM BTL TOPICAL SCH ×2 (08:11→21:36)
[2019-08-22] MEDS: Pantoprazole TAB * 40 MG TAB PO SCH (08:12)
[2019-08-22] MEDS: Potassium Chlor TAB* 20 MEQ TAB.ER PO SCH (08:12)
--- NOTE | 2019-08-22 11:34 | PN ---
Progress Note Date of Service: 08/22/19 Note: KELSI BLAIR was visited. Nursing notes read and reviewed. Back dressing changed in middle of the night due to heavy serosanguinous drainage. No chest pain, shortness of breath or abdominal pain. No fevers, chills or sweats. Current Medications: Active Medications Generic Name Dose Route Start Last Admin Trade Name Freq PRN Reason Stop Dose Admin Acetaminophen 650 mg 08/05/19 12:17 08/21/19 21:12 Tylenol Tab* PO 650 mg Q6H PRN Administration MILD PAIN or TEMP > 100.4 Albuterol/Ipratropium 1 neb 08/05/19 14:10 Duoneb (Albuterol 2.5 Mg/Ipratropium 0.5 Mg) INH Q6H PRN SOB/WHEEZING Apixaban 2.5 mg 08/20/19 21:00 08/22/19 08:07 Eliquis* PO 2.5 mg BID HERMAN Administration Atorvastatin Calcium 10 mg 08/05/19 17:00 08/21/19 16:56 Lipitor* PO 10 mg 1700 HERMAN Administration Cholecalciferol 2,000 units 08/06/19 09:00 08/22/19 08:07 Vitamin D Tab* PO 2,000 units DAILY HERMAN Administration Cyanocobalamin 1,000 mcg 08/06/19 09:00 08/22/19 08:08 Vitamin B12 Tab* PO 1,000 mcg DAILY HERMAN Administration Dextrose 12.5 gm 08/05/19 17:39 D50w Syringe 50 Ml* IV PUSH .FOR FS < 60 - SS PRN FS < 60 Diclofenac Sodium 1 applic 08/07/19 08:46 08/07/19 21:41 Voltaren 1% Gel (Nf) TOPICAL 1 applic QID PRN Administration Pain - Moderate back pain Protocol Diltiazem HCl 120 mg 08/06/19 09:00 08/22/19 08:08 Cardizem Cd Cap* PO 120 mg DAILY HERMAN Administration Diphenhydramine HCl 25 mg 08/19/19 16:42 08/21/19 21:11 Benadryl Po* PO 25 mg BEDTIME PRN Administration INSOMNIA Docusate Sodium 100 mg 08/19/19 21:00 08/22/19 08:09 Colace Cap* PO Not Given BID HERMAN Duloxetine HCl 60 mg 08/06/19 09:00 08/22/19 08:09 Cymbalta Cap* PO 60 mg DAILY HERMAN Administration Furosemide 20 mg 08/06/19 09:00 08/22/19 08:09 Lasix Tab* PO 20 mg DAILY HERMAN Administration Gabapentin 300 mg 08/05/19 21:00 08/21/19 21:11 Neurontin Cap(*) PO 300 mg 2100 HERMAN Administration Glipizide 5 mg 08/06/19 09:00 08/22/19 08:09 Glucotrol Xl* PO 5 mg DAILY HERMAN Administration Lorazepam 0.5 mg 08/06/19 11:08 08/19/19 21:27 Ativan Tab(*) PO 0.5 mg BID PRN Administration ANXIETY Magnesium Hydroxide 30 ml 08/05/19 12:17 08/08/19 20:02 Milk Of Magnesia Liq* PO 30 ml Q6H PRN Administration CONSTIPATION Metformin HCl 1,000 mg 08/05/19 17:00 08/22/19 08:06 Glucophage* PO 1,000 mg 0800,1700 HERMAN Administration Methocarbamol 750 mg 08/19/19 21:41 08/19/19 22:21 Robaxin Tab* PO 750 mg TID PRN Administration SPASMS - BACK Metoprolol Succinate 50 mg 08/06/19 09:00 08/22/19 08:10 Toprol Xl Tab* PO 50 mg DAILY HERMAN Administration Mometasone Furoate/Formoterol Fumar 2 puff 08/05/19 21:00 08/22/19 08:10 Dulera 100/5 Mdi* INH 2 puff BID HERMAN Administration Morphine Sulfate 15 mg 08/15/19 21:00 08/18/19 14:29 Ms Contin(*) PO 15 mg Q12H PRN Administration PAIN - SEVERE Nystatin 1 applic 08/05/19 21:00 08/22/19 08:11 Nystatin Top Powder* TOPICAL 1 applic BID HERMAN Administration Pantoprazole Sodium 40 mg 08/06/19 09:00 08/22/19 08:12 Protonix Tab* PO 40 mg DAILY HERMAN Administration Polyethylene Glycol/Electrolytes 17 gm 08/16/19 16:57 Miralax (17 Gm Dose Fransico) PO 0800,2100 PRN CONSTIPATION Potassium Chloride 20 meq 08/06/19 09:00 08/22/19 08:12 Klor Con Er Tab* PO 20 meq DAILY HERMAN Administration Senna 2 tab 08/05/19 12:17 Senokot 8.6 Mg Tab* PO BEDTIME PRN CONSTIPATION Tamsulosin HCl 0.4 mg 08/06/19 21:00 08/21/19 21:10 Flomax Cap* PO 0.4 mg BEDTIME HERMAN Administration Vital Signs: Vital Signs Temp Pulse Resp BP Pulse Ox 98.1 F 79 22 145/70 100 08/22/19 06:37 08/22/19 06:37 08/22/19 06:37 08/22/19 06:37 08/22/19 06:37 Lab Results: Laboratory Results - last 24 hr 08/21/19 08/22/19 22:10 06:56 POC Glucose (mg/dL) 112 H 114 H Exam: GENERAL: No acute distress. Alert and appropriate. LUNGS: decreased breath sounds consistent with COPD bilaterally. HEART: regular rate and rhythm (has h/o of A.Fib) ABDOMEN: + bowel sounds, soft, non-tender, non-distended EXTREMITIES: Mild BLE edema. NEUROLOGIC : BUE motor 5/5 except 4/5 right ADM. LLE motor hip flexion 2, knee ext 2, DF 4, EHL 4. RLE motor hip flex 1, knee ext 2, DF 4, EHL 4. Impaired sensation in stocking distribution to above knees right greater than left. SKIN: Dressing changed with nursing. Inferiorly along the incision there is a little fluctuance which expresses clear serosanguinous fluid. Possibly a seroma. No surrounding erythema or warmth. Assessment/Plan: 69yo man s/p L1-5 decompression and fusion after L3 fracture and paraplegia with peripheral neuropathy. 1. S/P L1-5 decompression and fusion: LSO for comfort. Eliquis resumed. Back incision is draining now. I will ask for wound consult. He has f/u with Dr. Herbert 09/01 at 2:30p, but possibly will need to be sooner or contacted for input. Will start keflex prophyllactically. PT/OT 2. Analgesia: Has chronic neuropathic pain, on gabapentin. Oxycodone and MS Contin prn. Topical diclofenac for back pain. 3. DVT prophylaxis: has h/o PE. Eliquis resumed but given that he is over a year out from PE per Dr. Whitmore recommended decrease to 2.5mg bid. 4. Impaired cognition: working with speech therapy daily, improved. Off routine MS Contin 5. Diabetes mellitus: metformin, glipizide 6. COPD on home oxygen: oxygen 2L/min. Continue meds. 7. Paroxysmal atrial fibrillation: Eliquis restarted, but per Dr. Whitmore now 2.5mg bid since he had a watchman procedure. Lopressor/Cardizem. 8. Depression/Anxiety: duloxetine. Lorazepam 0.5mg bid prn anxiety if needed to mobilize with therapies. 9. Constipation: Had loose stools and had one dose of Imodium. Resumed Colace. 10. Multiple Myeloma: f/u with Dr. Whitmore/Jared Alan. See their notes. Appreciate f/u. 11. Advanced directives: full code. Sergey Parsons is his healthcare proxy if he cannot make decisions himself. 08/22/19 11:30
[2019-08-22] MEDS: Cephalexin CAP* 500 MG PO SCH ×3 (12:36→21:28)
[2019-08-22] MEDS: Acetaminophen TAB* 325 MG PO PRN ×2 (13:47→21:27)
[2019-08-22] MEDS: Methocarbamol TAB* 500 MG PO PRN ×2 (14:10→23:01)
[2019-08-22] MEDS: Atorvastatin* 10 MG TAB PO SCH (16:37)
[2019-08-22] MEDS: Tamsulosin CAP* 0.4 MG PO SCH (21:27)
[2019-08-22] MEDS: diPHENhydraMINE PO* 25 MG PO PRN (21:27)
[2019-08-22] MEDS: Gabapentin CAP(*) 300 MG PO SCH (21:28)
[2019-08-23 07:01] VITALS: BP 152/70
[2019-08-23] MEDS: Nystatin TOP POWDER* 15 GM BTL TOPICAL SCH ×2 (08:45→20:47)
[2019-08-23] MEDS: Mometasone/Formoter 100/5 MDI INH SCH ×2 (08:46→20:47)
[2019-08-23] MEDS: metFORMIN* 1,000 MG TAB PO SCH ×2 (08:47→16:59)
[2019-08-23] MEDS: Cephalexin CAP* 500 MG PO SCH ×4 (08:47→20:51)
[2019-08-23] MEDS: DULoxetine DR CAP* 60 MG CAP.DR PO SCH (08:47)
[2019-08-23] MEDS: Cholecalciferol TAB* 1000 UNITS PO SCH (08:48)
[2019-08-23] MEDS: Metoprolol Succinate XL TAB* 50 MG PO SCH (08:49)
[2019-08-23] MEDS: Diltiazem CD CAP* 120 MG PO SCH (08:49)
[2019-08-23] MEDS: glipiZIDE TAB.XL* 5 MG PO SCH (08:49)
[2019-08-23] MEDS: Cyanocobalamin TAB* 500 MCG PO SCH (08:50)
[2019-08-23] MEDS: Apixaban* 2.5 MG TAB PO SCH ×2 (08:50→19:57)
[2019-08-23] MEDS: Pantoprazole TAB * 40 MG TAB PO SCH (08:50)
[2019-08-23] MEDS: Furosemide TAB* 20 MG PO SCH (08:50)
[2019-08-23] MEDS: Docusate CAP* 100 MG PO SCH ×2 (08:50→19:57)
[2019-08-23] MEDS: Potassium Chlor TAB* 20 MEQ TAB.ER PO SCH (08:50)
--- NOTE | 2019-08-23 10:58 | PN ---
Progress Note - Progress Note Date of Service: 08/23/19 SOAP: Subjective: [] Objective: [] Exam: Gen: Relatively well appearing Resp: CTA Psych: conversational. Neuro: full assessment not completed, but independently moving all extremities] CT scans and PET from 05/2019 to present reviewed with radiology. BARAK, DATC stable. Assessment: [This is a 69 yo male with MM, IDDM and afib transferred to [facility] 07/24 with concerns for a pathologic fracture now s/p ORIF and fusion 07/27. Surgical pathology negative for malignancy. A large psoas hematoma was recognized with associated anemia. Anticoagulation was held for at least 2 weeks and hematoma improved on imaging prior to dc from [facility]. Anticoagulation has since been resumed during his stay in [facility]. . Plan: [1. Lspine fx - s/p fusion and ORIF 07/[address] [facility] [address] Herbert - Obtain MRI from [facility], will work on from office 2. Psoas hematoma, h/o PE 10/2018 - anticoagulation has resumed, will need to monitor closely for re-bleeding, but appears stable/improved on CT imaging. - for re-bleeding, IVC filter - Eliquis 2.5 mg po bid. 3. Multiple Myeloma - remains sociologically stable - He has been off of therapy for ~1 month ([id number] daratumumab/velcade/ dexamethasone 07/21/19) - plan to resume therapy following discharge - Once available, will need MRI LS spine to confirm does not need XRT to spine. 5. Afib/ - s/p TAVR and watchman procedure 6. Question of NHP for self care if done not make progress soon. 7. Discussed code status and DNR, he is thinking about it.
[2019-08-23] MEDS: Atorvastatin* 10 MG TAB PO SCH (16:59)
--- NOTE | 2019-08-23 18:41 | PN ---
Progress Note Date of Service: 08/23/19 Note: KELSI BLAIR was visited. Therapy notes read and reviewed. He has continued to have drainage from distal wound-serosanginous mostly, but more than was present. I spoke with his neurosurgeon at [facility]. He believes drainage may be related to more oozing from restart of Eliquis. He thinks the patient should be admitted to [facility] rather than go to [facility]. Current Medications: Active Medications Generic Name Dose Route Start Last Admin Trade Name Freq PRN Reason Stop Dose Admin Acetaminophen 650 mg 08/05/19 12:17 08/22/19 21:27 Tylenol Tab* PO 650 mg Q6H PRN Administration MILD PAIN or TEMP > 100.4 Albuterol/Ipratropium 1 neb 08/05/19 14:10 Duoneb (Albuterol 2.5 Mg/Ipratropium 0.5 Mg) INH Q6H PRN SOB/WHEEZING Apixaban 2.5 mg 08/20/19 21:00 08/23/19 08:50 Eliquis* PO 2.5 mg BID HERMAN Administration Atorvastatin Calcium 10 mg 08/05/19 17:00 08/23/19 16:59 Lipitor* PO 10 mg 1700 HERMAN Administration Cephalexin HCl 500 mg 08/22/19 13:00 08/23/19 16:59 Keflex Cap* PO 500 mg QID HERMAN Administration Cholecalciferol 2,000 units 08/06/19 09:00 08/23/19 08:48 Vitamin D Tab* PO 2,000 units DAILY HERMAN Administration Cyanocobalamin 1,000 mcg 08/06/19 09:00 08/23/19 08:50 Vitamin B12 Tab* PO 1,000 mcg DAILY HERMAN Administration Dextrose 12.5 gm 08/05/19 17:39 D50w Syringe 50 Ml* IV PUSH .FOR FS < 60 - SS PRN FS < 60 Diclofenac Sodium 1 applic 08/07/19 08:46 08/07/19 21:41 Voltaren 1% Gel (Nf) TOPICAL 1 applic QID PRN Administration Pain - Moderate back pain Protocol Diltiazem HCl 120 mg 08/06/19 09:00 08/23/19 08:49 Cardizem Cd Cap* PO 120 mg DAILY HERMAN Administration Diphenhydramine HCl 25 mg 08/19/19 16:42 08/22/19 21:27 Benadryl Po* PO 25 mg BEDTIME PRN Administration INSOMNIA Docusate Sodium 100 mg 08/19/19 21:00 08/23/19 08:50 Colace Cap* PO 100 mg BID HERMAN Administration Duloxetine HCl 60 mg 08/06/19 09:00 08/23/19 08:47 Cymbalta Cap* PO 60 mg DAILY HERMAN Administration Furosemide 20 mg 08/06/19 09:00 08/23/19 08:50 Lasix Tab* PO 20 mg DAILY HERMAN Administration Gabapentin 300 mg 08/05/19 21:00 08/22/19 21:28 Neurontin Cap(*) PO 300 mg 2100 HERMAN Administration Glipizide 5 mg 08/06/19 09:00 08/23/19 08:49 Glucotrol Xl* PO 5 mg DAILY HERMAN Administration Lorazepam 0.5 mg 08/06/19 11:08 08/19/19 21:27 Ativan Tab(*) PO 0.5 mg BID PRN Administration ANXIETY Magnesium Hydroxide 30 ml 08/05/19 12:17 08/08/19 20:02 Milk Of Magnesia Liq* PO 30 ml Q6H PRN Administration CONSTIPATION Metformin HCl 1,000 mg 08/05/19 17:00 08/23/19 16:59 Glucophage* PO 1,000 mg 0800,1700 HERMAN Administration Methocarbamol 750 mg 08/19/19 21:41 08/22/19 23:01 Robaxin Tab* PO 750 mg TID PRN Administration SPASMS - BACK Metoprolol Succinate 50 mg 08/06/19 09:00 08/23/19 08:49 Toprol Xl Tab* PO 50 mg DAILY HERMAN Administration Mometasone Furoate/Formoterol Fumar 2 puff 08/05/19 21:00 08/23/19 08:46 Dulera 100/5 Mdi* INH 2 puff BID HERMAN Administration Morphine Sulfate 15 mg 08/15/19 21:00 08/18/19 14:29 Ms Contin(*) PO 15 mg Q12H PRN Administration PAIN - SEVERE Nystatin 1 applic 08/05/19 21:00 08/23/19 08:45 Nystatin Top Powder* TOPICAL 1 applic BID HERMAN Administration Pantoprazole Sodium 40 mg 08/06/19 09:00 04/13/20 08:50 Protonix Tab* PO 40 mg DAILY HERMAN Administration Polyethylene Glycol/Electrolytes 17 gm 08/16/19 16:57 Miralax (17 Gm Dose Fransico) PO 0800,2100 PRN CONSTIPATION Potassium Chloride 20 meq 08/06/19 09:00 08/23/19 08:50 Klor Con Er Tab* PO 20 meq DAILY HERMAN Administration Senna 2 tab 08/05/19 12:17 Senokot 8.6 Mg Tab* PO BEDTIME PRN CONSTIPATION Tamsulosin HCl 0.4 mg 08/06/19 21:00 08/22/19 21:27 Flomax Cap* PO 0.4 mg BEDTIME HERMAN Administration Vital Signs: Vital Signs Temp Pulse Resp BP Pulse Ox 97.9 F 71 20 152/70 100 08/23/19 06:39 08/23/19 06:39 08/23/19 17:43 08/23/19 06:39 08/23/19 06:39 Exam: GENERAL: No acute distress. Alert and appropriate. LUNGS: decreased breath sounds consistent with COPD bilaterally. HEART: regular rate and rhythm (has h/o of A.Fib) ABDOMEN: + bowel sounds, soft, non-tender, non-distended EXTREMITIES: Mild BLE edema. NEUROLOGIC : BUE motor 5/5 except 4/5 right ADM. LLE motor hip flexion 2, knee ext 2, DF 4, EHL 4. RLE motor hip flex 1, knee ext 2, DF 4, EHL 4. Impaired sensation in stocking distribution to above knees right greater than left. SKIN: nferiorly along the incision there is a little fluctuance which expresses clear serosanguinous fluid. No surrounding erythema or warmth. Assessment/Plan: 69yo man s/p L1-5 decompression and fusion after L3 fracture and paraplegia with peripheral neuropathy. 1. S/P L1-5 decompression and fusion: LSO for comfort. Eliquis resumed. Back incision is draining now. I discussed his case with Dr. eHrbert. May go back to [facility]. On keflex prophyllactically. PT/OT 2. Analgesia: Has chronic neuropathic pain, on gabapentin. Oxycodone and MS Contin prn. Topical diclofenac for back pain. 3. DVT prophylaxis: has h/o PE. Eliquis resumed but given that he is over a year out from PE per Dr. Whitmore recommended decrease to 2.5mg bid. 4. Impaired cognition: working with speech therapy daily, improved. Off routine MS Contin 5. Diabetes mellitus: metformin, glipizide 6. COPD on home oxygen: oxygen 2L/min. Continue meds. 7. Paroxysmal atrial fibrillation: Eliquis restarted, but per Dr. Whitmore now 2.5mg bid since he had a watchman procedure. Lopressor/Cardizem. 8. Depression/Anxiety: duloxetine. Lorazepam 0.5mg bid prn anxiety if needed to mobilize with therapies. 9. Constipation: Had loose stools and had one dose of Imodium. Resumed Colace. 10. Multiple Myeloma: f/u with Dr. Whitmore/Jared Alan. See their notes. Appreciate f/u. 11. Advanced directives: full code. Sergey Parsons is his healthcare proxy if he cannot make decisions himself. 08/23/19 18:42
[2019-08-23] MEDS: Methocarbamol TAB* 500 MG PO PRN (19:03)
[2019-08-23] MEDS: Acetaminophen TAB* 325 MG PO PRN (19:03)
[2019-08-23] MEDS: Tamsulosin CAP* 0.4 MG PO SCH (19:57)
[2019-08-23] MEDS: Gabapentin CAP(*) 300 MG PO SCH (19:57)
--- NOTE | 2019-08-23 21:56 | TRS ---
CC: Dr. Adams Whitmore* DISCHARGE SUMMARY: DATE OF ADMISSION: 08/05/19 DATE OF DISCHARGE: 08/23/19 DISCHARGE DIAGNOSES: 1. L3 fracture, status post L1 through L5 fusion. 2. Confusion secondary to opioid use. 3. Atrial fibrillation, status post Watchman procedure. 4. Status post transcatheter aortic valve replacement. 5. Multiple myeloma. 6. Chronic obstructive pulmonary disease. 7. Drainage from wound. HISTORY OF PRESENT ILLNESS AND HOSPITAL COURSE: For complete history of the events leading up to his rehab stay, please see the history and physical dictated by me on 08/05/19. While on the rehab unit, the patient remained significantly confused. He also had episodes of hallucination. After discussing the case with his significant other, Sergey, it was noted that he was on a much higher dose of opioids than he normally would take. His opioids, particularly his MS Contin, which he was getting routinely, was tapered off. He can still have MS Contin on an as needed basis. The patient's blood sugars were in good control. His sliding scale lispro and fingersticks were stopped. His Lantus insulin was stopped. He remains on metformin and glipizide. He remains on routine oxygen for his COPD. The patient was seen in followup by Oncology. Although his biopsy results were negative, they requested new imaging to make sure that no radiation therapy was needed. A CAT scan of his lumbar spine with contrast was done. Ideally, an MRI would have been done, but because of his pacemaker, it would have taken too long to arrange. The patient' s CAT scan did not appear to show any new lesions and therefore, radiation therapy was not felt to be necessary. The patient was restarted on his Eliquis , which he was taking prior to surgery. His Eliquis was resumed on 08/16/19. The patient this weekend on 08/21/19 began to have more drainage from the distal end of his incision. It appeared to be serosanguineous fluid with no sign of infection. However, it was copious amounts of fluid. He was started on Keflex prophylactically as an antibiotic. The case was discussed with his surgeon, Dr. Herbert in [place]. It was recommended that the patient be transferred back to [facility], so that the wound could be monitored and possibly explored. The patient did work with both Physical and Occupational Therapy while on the rehab unit as well as Speech Therapy. Speech Therapy was doing cognitive work, which became less necessary as he tapered off his opioids. The patient made gains with physical therapy. He was dependent in transfers at the time of admission; he was min assist for transfers at the time discharge. He was ambulating in the parallel bars 3 to 8 steps. He was a Kay lift at the time of admission. With occupational therapy, at the time of admission, he was dependent for all of his activities of daily living. By the time of discharge, the patient was set up for upper body dressing and dependent for lower body dressing, dependent for toileting. It had been recommended that the patient go to a subacute setting for further rehab, but the patient's wound began to drain over the weekend that he will now be transferred to [facility] to the neurosurgery service. DISCHARGE DIET: Consistent carbohydrate. DISCHARGE MEDICATIONS: 1. Lipitor 10 mg 5 p.m. daily. 2. Eliquis 2.5 mg twice daily. 3. DuoNeb inhaler every 6 hours as needed. 4. Keflex 500 mg 4 times a day. 5. Cardizem CD 120 mg daily. 6. Colace 100 mg twice daily. 7. Cymbalta 60 mg daily. 8. Lasix 20 mg daily. 9. Gabapentin 300 mg at bedtime. 10. Glucotrol XL 5 mg daily. 11. Ativan 0.5 mg twice daily as needed. 12. Glucophage 1000 mg at 8 a.m. and 5 p.m. 13. Robaxin 750 mg 3 times a day as needed for back spasms. 14. Toprol-XL 50 mg daily. 15. Dulera 100/5 metered dose inhaler 2 puffs twice daily. 16. MS Contin 15 mg every 12 hours as needed. 17. Oxycodone 5 mg every 6 hours as needed. 18. Flomax 0.4 mg at bedtime. 19. Klor-Con 20 mEq daily. 20. MiraLAX 17 g at 8 am as needed. 21. Protonix 40 mg daily. CONDITION AT DISCHARGE: Stable. DISPOSITION: To [facility]. [id number]/[facility] #: [id number] [facility]
== END 2019-08-23 20:30 | disposition short-term general hospital (02) | DRG 560 ==
LOC: PMRU 11:44
PROVIDERS: ADMIT Physical Medicine & Rehabilitation; ATTEND Physical Medicine & Rehabilitation
PROC: F07Z5ZZ Bed Mobility Treatment (ICD-10-PCS; principal; 2019-08-05)
PROC: F07Z9ZZ Gait Training/Functional Ambulation Treatment (ICD-10-PCS; 2019-08-05)
PROC: F07Z8ZZ Transfer Training Treatment (ICD-10-PCS; 2019-08-05)
PROC: F07Z4ZZ Wheelchair Mobility Treatment (ICD-10-PCS; 2019-08-05)
PROC: F08Z0ZZ Bathing/Showering Techniques Treatment (ICD-10-PCS; 2019-08-05)
PROC: F08Z1ZZ Dressing Techniques Treatment (ICD-10-PCS; 2019-08-05)
PROC: F08Z3ZZ Feeding/Eating Treatment (ICD-10-PCS; 2019-08-05)
PROC: F08Z2ZZ Grooming/Personal Hygiene Treatment (ICD-10-PCS; 2019-08-05)
PROC: F06Z6ZZ Communicative/Cognitive Integration Skills Treatment (ICD-10-PCS; 2019-08-05)
DX: S32.019D Unspecified fracture of first lumbar vertebra, subsequent encounter for fracture with routine healing (principal); C90.01 Multiple myeloma in remission; M96.89 Other intraoperative and postprocedural complications and disorders of the musculoskeletal system; G82.20 Paraplegia, unspecified; Z47.89 Encounter for other orthopedic aftercare; I11.0 Hypertensive heart disease with heart failure; I50.9 Heart failure, unspecified; I48.0 Paroxysmal atrial fibrillation; Z99.81 Dependence on supplemental oxygen; G31.84 Mild cognitive impairment of uncertain or unknown etiology; E11.42 Type 2 diabetes mellitus with diabetic polyneuropathy; S30.0XXD Contusion of lower back and pelvis, subsequent encounter; W10.9XXD Fall (on) (from) unspecified stairs and steps, subsequent encounter; G89.29 Other chronic pain; M48.56XD Collapsed vertebra, not elsewhere classified, lumbar region, subsequent encounter for fracture with routine healing; J44.9 Chronic obstructive pulmonary disease, unspecified; F41.9 Anxiety disorder, unspecified; E11.65 Type 2 diabetes mellitus with hyperglycemia; F32.9 Major depressive disorder, single episode, unspecified; K59.00 Constipation, unspecified; X58.XXXA Exposure to other specified factors, initial encounter; Y92.230 Patient room in hospital as the place of occurrence of the external cause; W18.30XD Fall on same level, unspecified, subsequent encounter; Z86.718 Personal history of other venous thrombosis and embolism; Z79.01 Long term (current) use of anticoagulants; Z95.2 Presence of prosthetic heart valve; Z79.1 Long term (current) use of non-steroidal anti-inflammatories (NSAID); Z79.4 Long term (current) use of insulin; Z79.891 Long term (current) use of opiate analgesic; Z79.899 Other long term (current) drug therapy; Z88.6 Allergy status to analgesic agent; Z88.8 Allergy status to other drugs, medicaments and biological substances; Z82.49 Family history of ischemic heart disease and other diseases of the circulatory system; Z87.891 Personal history of nicotine dependence; Z86.711 Personal history of pulmonary embolism; Z79.84 Long term (current) use of oral hypoglycemic drugs
CPT/HCPCS: 36415; 72132; 72193; 80053; 81003; 82784; 83735; 83883; 84155; 84165; 85025; 87493; 99232; 99233; A9270-GY; J1650; Q9967

== ENCOUNTER 2019-10-07 12:08 | Inpatient (IN) ==
[2019-10-07 13:10] LABS: ABS Basophils 0.1 10^3/ul (0-0.2); ABS Eosinophils 0.3 10^3/ul (0-0.6); ABS Lymphocytes 1.5 10^3/ul (1.0-4.8); ABS Monocytes 0.8 10^3/ul (0-0.8); Eosinophil % 4.3 %; Hematocrit 34 % (42-52); Hemoglobin 10.8 g/dL (14.0-18.0); Lymphocyte % 20.1 %; Mean Corpuscular HGB Conc 32 g/dL (31-36); Mean Corpuscular Hemoglobin 27 pg (27-31); Mean Corpuscular Volume 84 fL (80-94); Mean Platelet Volume 9.2 fL (7.4-10.4); Platelet Count 180 10^3/uL (150-450); Red Blood Count 4.01 10^6 /uL (4.18-5.48); Red Cell Distribution Width 17 % (10-15); White Blood Count 7.4 10^3/uL (3.5-10.8)
[2019-10-07 13:35] LABS: Albumin 3.7 g/dL (3.2-5.2); Albumin/Globulin Ratio 1.9 (1-3); BUN/Creatinine Ratio 42.2 (8-20); C Reactive Protein 17.36 mg/L (<8.01); Calcium 9.5 mg/dL (8.6-10.3); EGFR African American 149.6 (>60); EGFR Non-African American 123.6 (>60); Potassium 3.6 mmol/L (3.5-5.0); Total Bilirubin 0.5 mg/dL (0.2-1.0); Total Protein 5.7 g/dL (6.4-8.9)
[2019-10-07] MEDS ORDERED: NS 0.9% 1000 ml BAG 1,000 ML IV SCH (16:00)
[2019-10-07] MEDS ORDERED: Albuterol HFA INHALER 8 gm MDI INH PRN (16:11)
[2019-10-07] MEDS: Mometasone/Formoter 200/5 MDI INH SCH (20:08)
[2019-10-08 07:01] LABS: ABS Basophils 0.1 10^3/ul (0-0.2); ABS Eosinophils 0.3 10^3/ul (0-0.6); ABS Lymphocytes 1.6 10^3/ul (1.0-4.8); ABS Monocytes 0.9 10^3/ul (0-0.8); Eosinophil % 4.6 %; Hematocrit 29 % (42-52); Hemoglobin 9.7 g/dL (14.0-18.0); Lymphocyte % 22.8 %; Mean Corpuscular HGB Conc 33 g/dL (31-36); Mean Corpuscular Hemoglobin 28 pg (27-31); Mean Corpuscular Volume 83 fL (80-94); Mean Platelet Volume 8.1 fL (7.4-10.4); Platelet Count 141 10^3/uL (150-450); Red Blood Count 3.51 10^6 /uL (4.18-5.48); Red Cell Distribution Width 17 % (10-15); White Blood Count 7.1 10^3/uL (3.5-10.8)
[2019-10-08 07:27] LABS: Albumin 3.3 g/dL (3.2-5.2); Albumin/Globulin Ratio 1.7 (1-3); BUN/Creatinine Ratio 35.5 (8-20); Calcium 8.7 mg/dL (8.6-10.3); EGFR African American 155.2 (>60); EGFR Non-African American 128.3 (>60); Globulin 1.9 g/dL (2-4); Potassium 3.9 mmol/L (3.5-5.0); Total Bilirubin 0.6 mg/dL (0.2-1.0); Total Protein 5.2 g/dL (6.4-8.9)
[2019-10-08] MEDS: Mometasone/Formoter 200/5 MDI INH SCH ×2 (08:15→19:52)
[2019-10-08] MEDS: Aspirin EC 81 mg TAB.EC (enteric coated) PO SCH (10:26)
[2019-10-08] MEDS: DULoxetine DR 60 mg CAP PO SCH (10:26)
[2019-10-09] MEDS: Mometasone/Formoter 200/5 MDI INH SCH ×2 (08:03→19:18)
[2019-10-09] MEDS: DULoxetine DR 60 mg CAP PO SCH (08:55)
[2019-10-09] MEDS: Aspirin EC 81 mg TAB.EC (enteric coated) PO SCH (08:55)
[2019-10-10] MEDS: Mometasone/Formoter 200/5 MDI INH SCH ×2 (07:28→19:56)
[2019-10-10] MEDS: DULoxetine DR 60 mg CAP PO SCH (09:19)
[2019-10-10] MEDS: Aspirin EC 81 mg TAB.EC (enteric coated) PO SCH (09:21)
[2019-10-11] MEDS: Mometasone/Formoter 200/5 MDI INH SCH ×2 (07:20→19:36)
[2019-10-11] MEDS: DULoxetine DR 60 mg CAP PO SCH (08:52)
[2019-10-11] MEDS: Aspirin EC 81 mg TAB.EC (enteric coated) PO SCH (08:52)
[2019-10-12 06:05] LABS: ABS Eosinophils 0.2 10^3/ul (0-0.6); ABS Lymphocytes 1.2 10^3/ul (1.0-4.8); ABS Monocytes 0.5 10^3/ul (0-0.8); Eosinophil % 3.5 %; Hematocrit 29 % (42-52); Hemoglobin 9.5 g/dL (14.0-18.0); Lymphocyte % 26.6 %; Mean Corpuscular HGB Conc 33 g/dL (31-36); Mean Corpuscular Hemoglobin 27 pg (27-31); Mean Corpuscular Volume 82 fL (80-94); Mean Platelet Volume 9.1 fL (7.4-10.4); Platelet Count 144 10^3/uL (150-450); Red Blood Count 3.49 10^6 /uL (4.18-5.48); Red Cell Distribution Width 17 % (10-15); White Blood Count 4.6 10^3/uL (3.5-10.8)
[2019-10-12 06:26] LABS: Albumin 3.3 g/dL (3.2-5.2); Albumin/Globulin Ratio 1.5 (1-3); Calcium 8.7 mg/dL (8.6-10.3); EGFR African American 174.5 (>60); EGFR Non-African American 144.2 (>60); Globulin 2.2 g/dL (2-4); Magnesium 1.1 mg/dL (1.9-2.7); Potassium 3.6 mmol/L (3.5-5.0); Total Bilirubin 0.9 mg/dL (0.2-1.0); Total Protein 5.5 g/dL (6.4-8.9)
[2019-10-12] MEDS: Mometasone/Formoter 200/5 MDI INH SCH ×2 (08:24→19:47)
[2019-10-12] MEDS: DULoxetine DR 60 mg CAP PO SCH (09:22)
[2019-10-12] MEDS: Aspirin EC 81 mg TAB.EC (enteric coated) PO SCH (09:22)
[2019-10-12 10:32] LABS: Albumin 2.8 g/dL (3.4-4.7); Albumin/Globulin Ratio 1.26; Gamma Globulin 0.4 g/dL (0.6-1.6)
[2019-10-12 13:27] LABS: Immunoglobulin A 8 mg/dL (61 - 356); Immunoglobulin G 413 mg/dL (767 - 1590); Immunoglobulin M 33 mg/dL (37 - 286)
[2019-10-13] MEDS: Mometasone/Formoter 200/5 MDI INH SCH ×2 (08:03→19:12)
[2019-10-13] MEDS: DULoxetine DR 60 mg CAP PO SCH (09:44)
[2019-10-13 09:50] LABS: ABS Eosinophils 0.2 10^3/ul (0-0.6); ABS Lymphocytes 1.1 10^3/ul (1.0-4.8); ABS Monocytes 0.5 10^3/ul (0-0.8); Eosinophil % 3.6 %; Hematocrit 29 % (42-52); Hemoglobin 9.2 g/dL (14.0-18.0); Lymphocyte % 25.4 %; Mean Corpuscular HGB Conc 32 g/dL (31-36); Mean Corpuscular Hemoglobin 26 pg (27-31); Mean Corpuscular Volume 82 fL (80-94); Nucleated Red Blood Cells % 0.1; Platelet Count 158 10^3/uL (150-450); Red Cell Distribution Width 17 % (10-15); White Blood Count 4.1 10^3/uL (3.5-10.8)
[2019-10-13] MEDS: Aspirin EC 81 mg TAB.EC (enteric coated) PO SCH (09:55)
[2019-10-13 09:59] LABS: BUN/Creatinine Ratio 20.8 (8-20); EGFR Non-African American 153.7 (>60); Potassium 3.4 mmol/L (3.5-5.0)
[2019-10-13] MEDS ORDERED: Magnesium Sulf 4 GM/100 ML IV 4,000 MG/100 ML BAG IVPB ONE (11:00)
[2019-10-14 05:16] LABS: ABS Eosinophils 0.2 10^3/ul (0-0.6); ABS Lymphocytes 0.9 10^3/ul (1.0-4.8); ABS Monocytes 0.5 10^3/ul (0-0.8); Eosinophil % 5.4 %; Hematocrit 29 % (42-52); Hemoglobin 9.2 g/dL (14.0-18.0); Lymphocyte % 22.8 %; Mean Corpuscular HGB Conc 32 g/dL (31-36); Mean Corpuscular Hemoglobin 27 pg (27-31); Mean Corpuscular Volume 83 fL (80-94); Mean Platelet Volume 8.7 fL (7.4-10.4); Nucleated Red Blood Cells % 0.1; Platelet Count 155 10^3/uL (150-450); Red Blood Count 3.47 10^6 /uL (4.18-5.48); Red Cell Distribution Width 17 % (10-15); White Blood Count 4.1 10^3/uL (3.5-10.8)
[2019-10-14 05:32] LABS: BUN/Creatinine Ratio 20.4 (8-20); Calcium 8.4 mg/dL (8.6-10.3); EGFR Non-African American 150.4 (>60); Magnesium 1.4 mg/dL (1.9-2.7); Potassium 3.7 mmol/L (3.5-5.0)
[2019-10-14] MEDS: Mometasone/Formoter 200/5 MDI INH SCH ×2 (07:23→20:28)
[2019-10-14] MEDS ORDERED: Magnesium Sulf 4 GM/100 ML IV 4,000 MG/100 ML BAG IVPB ONE (07:31)
[2019-10-14] MEDS: DULoxetine DR 60 mg CAP PO SCH (08:43)
[2019-10-14] MEDS: Aspirin EC 81 mg TAB.EC (enteric coated) PO SCH (08:44)
[2019-10-14] MEDS: Enoxaparin 40 MG/0.4 ML SYR(*) SUBCUT SCH (12:15)
[2019-10-14] MEDS ORDERED: diPHENhydraMINE 25 mg TAB PO PRN (21:13)
[2019-10-15 06:27] LABS: ABS Eosinophils 0.2 10^3/ul (0-0.6); ABS Lymphocytes 1.1 10^3/ul (1.0-4.8); ABS Monocytes 0.6 10^3/ul (0-0.8); Eosinophil % 3.3 %; Hematocrit 27 % (42-52); Hemoglobin 9.2 g/dL (14.0-18.0); Lymphocyte % 23.2 %; Mean Corpuscular HGB Conc 34 g/dL (31-36); Mean Corpuscular Hemoglobin 27 pg (27-31); Mean Corpuscular Volume 81 fL (80-94); Mean Platelet Volume 8.8 fL (7.4-10.4); Platelet Count 166 10^3/uL (150-450); Red Blood Count 3.37 10^6 /uL (4.18-5.48); Red Cell Distribution Width 17 % (10-15); White Blood Count 4.8 10^3/uL (3.5-10.8)
[2019-10-15 06:50] LABS: Albumin 3.2 g/dL (3.2-5.2); Albumin/Globulin Ratio 1.5 (1-3); BUN/Creatinine Ratio 20.4 (8-20); Calcium 8.6 mg/dL (8.6-10.3); EGFR Non-African American 150.4 (>60); Globulin 2.1 g/dL (2-4); Magnesium 1.6 mg/dL (1.9-2.7); Potassium 3.4 mmol/L (3.5-5.0); Total Bilirubin 0.8 mg/dL (0.2-1.0); Total Protein 5.3 g/dL (6.4-8.9)
[2019-10-15] MEDS: Mometasone/Formoter 200/5 MDI INH SCH (08:02)
[2019-10-15] MEDS: DULoxetine DR 60 mg CAP PO SCH (08:24)
[2019-10-15] MEDS: Aspirin EC 81 mg TAB.EC (enteric coated) PO SCH (08:25)
[2019-10-15] MEDS: Enoxaparin 40 MG/0.4 ML SYR(*) SUBCUT SCH (08:28)
[2019-10-15 11:46] VITALS: BP 149/69
== END 2019-10-15 13:19 | DRG 543 ==
LOC: ED 12:08 → MEDTELE 18:10
PROVIDERS: ADMIT Internal Medicine Hematology & Oncology; ATTEND Internal Medicine Hematology & Oncology

== ENCOUNTER 2020-04-17 16:02 | Inpatient (IN) ==
[2020-04-17 17:06] LABS: ABS Lymphocytes 1.1 10^3/ul (1.0-4.8); ABS Monocytes 0.3 10^3/ul (0-0.8); ABS Neutrophils 1.5 10^3/ul (1.5-7.7); Eosinophil % 1.1 %; Hematocrit 35 % (42-52); Hemoglobin 10.9 g/dL (14.0-18.0); Lymphocyte % 37.8 %; Mean Corpuscular HGB Conc 32 g/dL (31-36); Mean Corpuscular Hemoglobin 24 pg (27-31); Mean Corpuscular Volume 75 fL (80-94); Mean Platelet Volume 8.7 fL (7.4-10.4); Nucleated Red Blood Cells % 0.2; Platelet Count 113 10^3/uL (150-450); Red Blood Count 4.63 10^6 /uL (4.18-5.48); Red Cell Distribution Width 18 % (10-15)
[2020-04-17 17:10] LABS: Urine Appearance Clear; Urine Bilirubin Negative (Negative); Urine Blood Negative (Negative); Urine Color Yellow; Urine Glucose Negative (Negative); Urine Ketones Trace (Negative); Urine Nitrite Negative (Negative); Urine Protein 1+(30 mg/dL) (Negative); Urine Specific Gravity 1.016 (1.010-1.030); Urine Urobilinogen Negative (Negative)
[2020-04-17 17:14] LABS: Urine Bacteria Absent (Absent); Urine Red Blood Cell Absent (Absent); Urine Squamous Epithelial Cell Present (Absent); Urine White Blood Cell Absent (Absent)
[2020-04-17 17:22] LABS: Influenza A Molecular Negative (Negative); Influenza B Molecular Negative (Negative)
[2020-04-17 17:29] LABS: ALT 8 U/L (7-52); AST 16 U/L (13-39); Albumin 3.4 g/dL (3.2-5.2); Albumin/Globulin Ratio 0.9 (1-3); Alkaline Phosphatase 121 U/L (34-104); Anion Gap 5 mmol/L (2-11); BUN/Creatinine Ratio 21.6 (8-20); Blood Urea Nitrogen 19 mg/dL (6-24); C Reactive Protein 64.93 mg/L (<8.01); CO2 Carbon Dioxide 32 mmol/L (22-32); Calcium 9.1 mg/dL (8.6-10.3); Chloride 104 mmol/L (101-111); EGFR African American 103.6 (>60); EGFR Non-African American 85.6 (>60); Globulin 3.7 g/dL (2-4); Glucose 104 mg/dL (70-100); Potassium 3.8 mmol/L (3.5-5.0); Sodium 141 mmol/L (135-145); Total Protein 7.1 g/dL (6.4-8.9); Troponin I 0.03 ng/mL (<0.03)
[2020-04-17 17:32] LABS: LDH 173 U/L (140-271)
[2020-04-17 17:52] LABS: Ferritin 105.8 ng/mL (24-336)
[2020-04-17] MEDS ORDERED: Iohexol 350 (CONTRAST) 500 ML MDV IV ONE (21:52)
[2020-04-17] MEDS ORDERED: Iodixanol (CONTRAST) 320 MG/ML 100 ML SDV IV ONE (21:54)
[2020-04-17] MEDS ORDERED: Albuterol HFA INHALER 8 gm MDI INH PRN (21:57)
[2020-04-17] MEDS ORDERED: Remdesivir 5 MG/ML LIQ IV Vial 200 MG in NS 0.9% 250 ml 210 ML IV ONE (21:59)
[2020-04-17] MEDS ORDERED: Dextrose 50% Syringe 50 ml 25 GM/50 ML SYRINGE IV PUSH PRN (22:03)
[2020-04-17] MEDS ORDERED: Mometasone/Formoter 100/5 MDI INH SCH (23:00)
[2020-04-18 06:44] LABS: ABS Lymphocytes 0.8 10^3/ul (1.0-4.8); ABS Monocytes 0.2 10^3/ul (0-0.8); Eosinophil % 0.1 %; Hematocrit 34 % (42-52); Hemoglobin 10.9 g/dL (14.0-18.0); Lymphocyte % 19.5 %; Mean Corpuscular HGB Conc 32 g/dL (31-36); Mean Corpuscular Hemoglobin 24 pg (27-31); Mean Corpuscular Volume 75 fL (80-94); Mean Platelet Volume 9.1 fL (7.4-10.4); Nucleated Red Blood Cells % 0.1; Platelet Count 107 10^3/uL (150-450); Red Blood Count 4.58 10^6 /uL (4.18-5.48); Red Cell Distribution Width 18 % (10-15)
[2020-04-18 07:11] LABS: Albumin 3.2 g/dL (3.2-5.2); Albumin/Globulin Ratio 0.8 (1-3); BUN/Creatinine Ratio 24.7 (8-20); Calcium 8.8 mg/dL (8.6-10.3); EGFR African American 128.5 (>60); EGFR Non-African American 106.2 (>60); Globulin 3.8 g/dL (2-4); Potassium 3.8 mmol/L (3.5-5.0); Total Bilirubin 0.7 mg/dL (0.2-1.0)
[2020-04-18] MEDS: Mometasone/Formoter 100/5 MDI INH SCH ×2 (08:45→20:43)
[2020-04-18] MEDS: Aspirin EC 81 mg TAB.EC (enteric coated) PO SCH (09:31)
[2020-04-18] MEDS: Morphine ER 30 mg TAB ** extended release PO SCH ×2 (09:32→21:27)
[2020-04-18] MEDS: Collagenase 250 units/gm OINT 1 tube TOPICAL SCH ×2 (09:34→22:17)
[2020-04-18] MEDS: DULoxetine DR 30 mg CAP PO SCH (17:20)
[2020-04-18] MEDS: Cholecalciferol (VIT D3) 1,000 unit TAB PO SCH (17:20)
[2020-04-18] MEDS: Remdesivir 5 MG/ML LIQ IV Vial 100 MG in NS 0.9% 250 ml 230 ML IV SCH (22:07)
[2020-04-19 07:51] LABS: ABS Monocytes 0.5 10^3/ul (0-0.8); ABS Neutrophils 5.3 10^3/ul (1.5-7.7); Hematocrit 33 % (42-52); Hemoglobin 10.6 g/dL (14.0-18.0); Lymphocyte % 15.3 %; Mean Corpuscular HGB Conc 32 g/dL (31-36); Mean Corpuscular Hemoglobin 24 pg (27-31); Mean Corpuscular Volume 74 fL (80-94); Mean Platelet Volume 8.9 fL (7.4-10.4); Platelet Count 125 10^3/uL (150-450); Red Blood Count 4.44 10^6 /uL (4.18-5.48); Red Cell Distribution Width 18 % (10-15); White Blood Count 6.9 10^3/uL (3.5-10.8)
[2020-04-19 07:58] LABS: Albumin 3.1 g/dL (3.2-5.2); Albumin/Globulin Ratio 0.9 (1-3); EGFR African American 100.9 (>60); EGFR Non-African American 83.4 (>60); Globulin 3.6 g/dL (2-4); Indirect Bilirubin 0.4 mg/dL (0.3-1.0); Potassium 3.6 mmol/L (3.5-5.0); Total Bilirubin 0.6 mg/dL (0.2-1.0); Total Protein 6.7 g/dL (6.4-8.9)
[2020-04-19] MEDS: Morphine ER 30 mg TAB ** extended release PO SCH ×2 (08:49→21:20)
[2020-04-19] MEDS: Aspirin EC 81 mg TAB.EC (enteric coated) PO SCH (08:50)
[2020-04-19] MEDS: Collagenase 250 units/gm OINT 1 tube TOPICAL SCH (08:54)
[2020-04-19] MEDS: Mometasone/Formoter 100/5 MDI INH SCH ×2 (10:37→20:43)
[2020-04-19] MEDS ORDERED: Vancomycin 1,000 MG in NS 0.9% 250 ml 250 ML IVPB ONE (14:21)
[2020-04-19] MEDS ORDERED: Vancomycin per Pharmacy 1 EA NOTE FOLLOW UP SCH (15:00)
[2020-04-19] MEDS: DULoxetine DR 30 mg CAP PO SCH (17:53)
[2020-04-19] MEDS: Cholecalciferol (VIT D3) 1,000 unit TAB PO SCH (17:54)
[2020-04-19] MEDS: Remdesivir 5 MG/ML LIQ IV Vial 100 MG in NS 0.9% 250 ml 230 ML IV SCH (21:17)
[2020-04-20] MEDS: Vancomycin 1000 MG in NS 0.9% 250 ML IVPB SCH ×2 (05:35→18:32)
[2020-04-20 07:54] LABS: ABS Monocytes 0.4 10^3/ul (0-0.8); ABS Neutrophils 2.7 10^3/ul (1.5-7.7); Hematocrit 34 % (42-52); Hemoglobin 10.6 g/dL (14.0-18.0); Lymphocyte % 24.4 %; Mean Corpuscular HGB Conc 32 g/dL (31-36); Mean Corpuscular Hemoglobin 24 pg (27-31); Mean Corpuscular Volume 74 fL (80-94); Mean Platelet Volume 9.4 fL (7.4-10.4); Platelet Count 122 10^3/uL (150-450); Red Blood Count 4.49 10^6 /uL (4.18-5.48); Red Cell Distribution Width 18 % (10-15); White Blood Count 4.1 10^3/uL (3.5-10.8)
[2020-04-20 08:06] LABS: Albumin 3.2 g/dL (3.2-5.2); Albumin/Globulin Ratio 0.9 (1-3); Globulin 3.7 g/dL (2-4); Indirect Bilirubin 0.4 mg/dL (0.3-1.0); Magnesium 1.6 mg/dL (1.9-2.7); Total Bilirubin 0.6 mg/dL (0.2-1.0); Total Protein 6.9 g/dL (6.4-8.9)
[2020-04-20] MEDS: Mometasone/Formoter 100/5 MDI INH SCH ×2 (08:26→19:26)
[2020-04-20] MEDS: Aspirin EC 81 mg TAB.EC (enteric coated) PO SCH (08:42)
[2020-04-20] MEDS: Morphine ER 30 mg TAB ** extended release PO SCH ×2 (08:43→21:37)
[2020-04-20] MEDS: Collagenase 250 units/gm OINT 1 tube TOPICAL SCH (08:46)
[2020-04-20] MEDS ORDERED: Magnesium Sulf 4 GM/100 ML IV 4,000 MG/100 ML BAG IVPB ONE (10:30)
[2020-04-20 16:07] LABS: C Reactive Protein 74.56 mg/L (<8.01)
[2020-04-20] MEDS: Cholecalciferol (VIT D3) 1,000 unit TAB PO SCH (17:46)
[2020-04-20] MEDS: Cefepime 2 GM in Dextrose 2 GM/50 ML BAG IV SCH (17:46)
[2020-04-20] MEDS: DULoxetine DR 30 mg CAP PO SCH (18:33)
[2020-04-20] MEDS: Remdesivir 5 MG/ML LIQ IV Vial 100 MG in NS 0.9% 250 ml 230 ML IV SCH (21:25)
[2020-04-21] MEDS ORDERED: Vancomycin Trough Check NOTE FOLLOW UP ONE (05:30)
[2020-04-21 05:39] LABS: ABS Lymphocytes 1.2 10^3/ul (1.0-4.8); ABS Monocytes 0.6 10^3/ul (0-0.8); ABS Neutrophils 3.5 10^3/ul (1.5-7.7); Hematocrit 35 % (42-52); Hemoglobin 11.2 g/dL (14.0-18.0); Lymphocyte % 21.9 %; Mean Corpuscular HGB Conc 32 g/dL (31-36); Mean Corpuscular Hemoglobin 24 pg (27-31); Mean Corpuscular Volume 74 fL (80-94); Mean Platelet Volume 8.7 fL (7.4-10.4); Nucleated Red Blood Cells % 0.1; Platelet Count 142 10^3/uL (150-450); Red Blood Count 4.72 10^6 /uL (4.18-5.48); Red Cell Distribution Width 18 % (10-15); White Blood Count 5.3 10^3/uL (3.5-10.8)
[2020-04-21 05:51] LABS: Albumin 3.2 g/dL (3.2-5.2); Albumin/Globulin Ratio 0.9 (1-3); Globulin 3.6 g/dL (2-4); Indirect Bilirubin 0.3 mg/dL (0.3-1.0); Total Bilirubin 0.6 mg/dL (0.2-1.0); Total Protein 6.8 g/dL (6.4-8.9)
[2020-04-21] MEDS: Cefepime 2 GM in Dextrose 2 GM/50 ML BAG IV SCH (06:07)
[2020-04-21] MEDS: Mometasone/Formoter 100/5 MDI INH SCH (07:37)
[2020-04-21] MEDS: Vancomycin 1000 MG in NS 0.9% 250 ML IVPB SCH (08:02)
[2020-04-21] MEDS: Aspirin EC 81 mg TAB.EC (enteric coated) PO SCH (08:39)
[2020-04-21] MEDS: Morphine ER 30 mg TAB ** extended release PO SCH (08:41)
[2020-04-21] MEDS: Collagenase 250 units/gm OINT 1 tube TOPICAL SCH (08:43)
[2020-04-21] MEDS ORDERED: Polyethylene Glycol 3350 17 GM PACKET PO SCH (10:00)
[2020-04-21 13:04] VITALS: BP 118/60
[2020-04-23] MEDS ORDERED: Vancomycin Trough Check NOTE FOLLOW UP ONE (05:30)
== END 2020-04-21 17:00 | disposition home or self-care (01) | DRG 177 ==
LOC: ED 16:02 → MED 21:35
PROVIDERS: ADMIT Internal Medicine; ATTEND Internal Medicine

== ENCOUNTER 2020-09-22 07:31 | Inpatient (IN) ==
[2020-09-22] MEDS ORDERED: cefTRIAXone 1 gm/50 mL NS BAG 1 GM/50 ML BAG IV ONE (10:21)
[2020-09-22] MEDS ORDERED: Vancomycin 1,000 MG in NS 0.9% 250 ml 250 ML IVPB ONE (10:21)
[2020-09-22 10:22] LABS: ABS Monocytes 0.6 10^3/ul (0-0.8); ABS Neutrophils 3.1 10^3/ul (1.5-7.7); Eosinophil % 0.1 %; Hematocrit 29 % (42-52); Hemoglobin 9.1 g/dL (14.0-18.0); Lymphocyte % 20.3 %; Mean Corpuscular HGB Conc 32 g/dL (31-36); Mean Corpuscular Hemoglobin 25 pg (27-31); Mean Corpuscular Volume 78 fL (80-94); Mean Platelet Volume 7.7 fL (7.4-10.4); Nucleated Red Blood Cells % 0.1; Platelet Count 275 10^3/uL (150-450); Red Blood Count 3.63 10^6 /uL (4.18-5.48); Red Cell Distribution Width 24 % (10-15); White Blood Count 4.7 10^3/uL (3.5-10.8)
[2020-09-22 10:35] LABS: Albumin 2.9 g/dL (3.2-5.2); Calcium 8.7 mg/dL (8.6-10.3); EGFR African American 139.1 (>60); Magnesium 1.4 mg/dL (1.9-2.7); Total Bilirubin 0.9 mg/dL (0.2-1.0); Total Protein 5.9 g/dL (6.4-8.9)
[2020-09-22] MEDS ORDERED: Ondansetron 4 mg VIAL 2 MG/ML 2 ml VIAL IV PRN (11:58)
[2020-09-22] MEDS ORDERED: Albuterol HFA INHALER 8 gm MDI INH PRN (12:01)
[2020-09-22 13:44] LABS: Microcytosis 1+; Tear Drop Cells 1+
[2020-09-22] MEDS: Cholecalciferol (VIT D3) 1,000 unit TAB PO SCH (18:05)
[2020-09-22] MEDS: Morphine 2 MG/ML SYRINGE IV PRN ×2 (19:22→23:15)
[2020-09-22] MEDS: Budesonide NEB 0.25 MG/2 ML NEB.SOLN INH SCH (19:26)
[2020-09-22] MEDS: Mometasone 220 MCG MDI INH SCH (19:26)
[2020-09-22] MEDS: Senna TAB 8.6 mg TAB PO SCH (21:31)
[2020-09-23] MEDS: Morphine 2 MG/ML SYRINGE IV PRN ×4 (03:38→21:57)
[2020-09-23 07:18] LABS: ABS Lymphocytes 1.5 10^3/ul (1.0-4.8); ABS Monocytes 0.6 10^3/ul (0-0.8); ABS Neutrophils 2.2 10^3/ul (1.5-7.7); Eosinophil % 0.2 %; Hematocrit 28 % (42-52); Hemoglobin 9.1 g/dL (14.0-18.0); Lymphocyte % 34.4 %; Mean Corpuscular HGB Conc 32 g/dL (31-36); Mean Corpuscular Hemoglobin 25 pg (27-31); Mean Corpuscular Volume 78 fL (80-94); Mean Platelet Volume 8.2 fL (7.4-10.4); Platelet Count 271 10^3/uL (150-450); Red Blood Count 3.65 10^6 /uL (4.18-5.48); Red Cell Distribution Width 23 % (10-15); White Blood Count 4.3 10^3/uL (3.5-10.8)
[2020-09-23] MEDS: Budesonide NEB 0.25 MG/2 ML NEB.SOLN INH SCH ×3 (07:29→19:01)
[2020-09-23 07:46] LABS: Albumin 2.8 g/dL (3.2-5.2); Albumin/Globulin Ratio 0.9 (1-3); Calcium 8.5 mg/dL (8.6-10.3); EGFR African American 141.5 (>60); EGFR Non-African American 116.9 (>60); Potassium 3.4 mmol/L (3.5-5.0); Total Bilirubin 0.9 mg/dL (0.2-1.0); Total Protein 5.8 g/dL (6.4-8.9)
[2020-09-23] MEDS: Collagenase 250 units/gm OINT 1 tube TOPICAL SCH (08:48)
[2020-09-23] MEDS: Aspirin EC 81 mg TAB.EC (enteric coated) PO SCH (08:48)
[2020-09-23] MEDS: DULoxetine DR 30 mg CAP PO SCH (08:48)
[2020-09-23] MEDS: Senna TAB 8.6 mg TAB PO SCH ×2 (08:48→21:55)
[2020-09-23] MEDS: Cholecalciferol (VIT D3) 1,000 unit TAB PO SCH ×2 (08:49→16:53)
[2020-09-23] MEDS ORDERED: Dextrose 50% Syringe 50 ml 25 GM/50 ML SYRINGE IV PUSH PRN (11:33)
[2020-09-23 11:51] LABS: Magnesium 1.3 mg/dL (1.9-2.7)
[2020-09-23] MEDS ORDERED: Magnesium Sulf 4 GM/100 ML IV 4,000 MG/100 ML BAG IVPB ONE (13:00)
[2020-09-23] MEDS: Mometasone 220 MCG MDI INH SCH (19:00)
[2020-09-23 21:30] LABS: Glucose Confirmatory 410 mg/dL (70-100)
[2020-09-24 05:32] LABS: Albumin/Globulin Ratio 0.9 (1-3); Calcium 8.7 mg/dL (8.6-10.3); EGFR African American 104.7 (>60); EGFR Non-African American 86.5 (>60); Globulin 3.2 g/dL (2-4); Magnesium 1.9 mg/dL (1.9-2.7); Total Bilirubin 0.5 mg/dL (0.2-1.0); Total Protein 6.2 g/dL (6.4-8.9)
[2020-09-24 05:33] LABS: ABS Lymphocytes 1.2 10^3/ul (1.0-4.8); ABS Monocytes 0.3 10^3/ul (0-0.8); ABS Neutrophils 2.7 10^3/ul (1.5-7.7); Hematocrit 29 % (42-52); Hemoglobin 9.6 g/dL (14.0-18.0); Lymphocyte % 29.4 %; Mean Corpuscular HGB Conc 33 g/dL (31-36); Mean Corpuscular Hemoglobin 26 pg (27-31); Mean Corpuscular Volume 79 fL (80-94); Platelet Count 317 10^3/uL (150-450); Red Blood Count 3.75 10^6 /uL (4.18-5.48); Red Cell Distribution Width 23 % (10-15); White Blood Count 4.2 10^3/uL (3.5-10.8)
[2020-09-24] MEDS: Budesonide NEB 0.25 MG/2 ML NEB.SOLN INH SCH ×2 (07:10→19:10)
[2020-09-24] MEDS: Aspirin EC 81 mg TAB.EC (enteric coated) PO SCH (08:15)
[2020-09-24] MEDS: DULoxetine DR 30 mg CAP PO SCH (08:20)
[2020-09-24] MEDS: Senna TAB 8.6 mg TAB PO SCH ×2 (08:21→20:52)
[2020-09-24] MEDS: Cholecalciferol (VIT D3) 1,000 unit TAB PO SCH ×2 (08:24→17:37)
[2020-09-24] MEDS: Collagenase 250 units/gm OINT 1 tube TOPICAL SCH (13:33)
[2020-09-24] MEDS: Mometasone 220 MCG MDI INH SCH (19:12)
[2020-09-25] MEDS: Budesonide NEB 0.25 MG/2 ML NEB.SOLN INH SCH ×3 (06:55→20:29)
[2020-09-25] MEDS: Senna TAB 8.6 mg TAB PO SCH ×2 (07:48→20:41)
[2020-09-25] MEDS: Aspirin EC 81 mg TAB.EC (enteric coated) PO SCH (07:48)
[2020-09-25] MEDS: Cholecalciferol (VIT D3) 1,000 unit TAB PO SCH ×2 (07:48→16:53)
[2020-09-25] MEDS: DULoxetine DR 30 mg CAP PO SCH (07:48)
[2020-09-25] MEDS: Collagenase 250 units/gm OINT 1 tube TOPICAL SCH (08:52)
[2020-09-25] MEDS: Morphine ER 30 mg TAB ** extended release PO SCH ×2 (12:23→20:40)
[2020-09-25 13:36] LABS: Total Iron Binding Capacity 266 mcg/dL (250-450); Transferrin 190 mg/dL (203-362)
[2020-09-25 13:50] LABS: % Iron Saturation 8 % (15-55); Iron < 20 ug/dL (50-212); Unsaturated Iron Binding < 251 ug/dL
[2020-09-25 13:56] LABS: Ferritin 187.5 ng/mL (24-336)
[2020-09-25 14:00] LABS: Vitamin B12 158 pg/mL (180-914)
[2020-09-25] MEDS: Mometasone 220 MCG MDI INH SCH (20:29)
[2020-09-25] MEDS: Morphine 2 MG/ML SYRINGE IV PRN (22:21)
[2020-09-26] MEDS: Morphine ER 30 mg TAB ** extended release PO SCH ×3 (04:50→20:08)
[2020-09-26] MEDS: Budesonide NEB 0.25 MG/2 ML NEB.SOLN INH SCH ×2 (07:27→20:31)
[2020-09-26] MEDS: Senna TAB 8.6 mg TAB PO SCH ×2 (08:27→20:07)
[2020-09-26] MEDS: DULoxetine DR 30 mg CAP PO SCH (08:28)
[2020-09-26] MEDS: Cholecalciferol (VIT D3) 1,000 unit TAB PO SCH ×2 (08:30→17:37)
[2020-09-26] MEDS: Aspirin EC 81 mg TAB.EC (enteric coated) PO SCH (08:31)
[2020-09-26] MEDS: Collagenase 250 units/gm OINT 1 tube TOPICAL SCH (08:32)
[2020-09-26] MEDS ORDERED: Cyanocobalamin INJ 1,000 MCG/ML VIAL 1 ML VIAL IM ONE (09:50)
[2020-09-26] MEDS: Morphine 2 MG/ML SYRINGE IV PRN (10:34)
[2020-09-26] MEDS: Iron Sucrose 200 MG in NS 0.9% 100 ml BAG 100 ML IVPB SCH (10:43)
[2020-09-26 13:21] LABS: Kappa Free Light Chain 4.22 mg/dL
[2020-09-26 16:17] LABS: Albumin 2.3 g/dL (3.4-4.7); Albumin/Globulin Ratio 0.65; Gamma Globulin 1.1 g/dL (0.6-1.6); Total Protein(PEP) 5.7 g/dL (6.3 - 7.9)
[2020-09-26] MEDS: Mometasone 220 MCG MDI INH SCH (20:36)
[2020-09-27] MEDS: Morphine 2 MG/ML SYRINGE IV PRN ×3 (02:56→14:18)
[2020-09-27] MEDS: Morphine ER 30 mg TAB ** extended release PO SCH ×2 (04:27→13:39)
[2020-09-27] MEDS: Budesonide NEB 0.25 MG/2 ML NEB.SOLN INH SCH ×2 (07:14→19:34)
[2020-09-27] MEDS: DULoxetine DR 30 mg CAP PO SCH (09:51)
[2020-09-27] MEDS: Senna TAB 8.6 mg TAB PO SCH ×2 (09:51→20:42)
[2020-09-27] MEDS: Aspirin EC 81 mg TAB.EC (enteric coated) PO SCH (09:57)
[2020-09-27] MEDS: Iron Sucrose 200 MG in NS 0.9% 100 ml BAG 100 ML IVPB SCH (10:13)
[2020-09-27] MEDS: Cholecalciferol (VIT D3) 1,000 unit TAB PO SCH ×2 (12:59→16:54)
[2020-09-27] MEDS: Collagenase 250 units/gm OINT 1 tube TOPICAL SCH (12:59)
[2020-09-27] MEDS: Mometasone 220 MCG MDI INH SCH (19:34)
[2020-09-27] MEDS: Morphine ER 15 mg TAB ** extended release PO SCH (22:42)
[2020-09-28] MEDS: Morphine ER 15 mg TAB ** extended release PO SCH ×2 (05:39→22:35)
[2020-09-28] MEDS: Aspirin EC 81 mg TAB.EC (enteric coated) PO SCH (08:43)
[2020-09-28] MEDS: Cholecalciferol (VIT D3) 1,000 unit TAB PO SCH ×2 (08:44→17:18)
[2020-09-28] MEDS: DULoxetine DR 30 mg CAP PO SCH (08:45)
[2020-09-28] MEDS: Iron Sucrose 200 MG in NS 0.9% 100 ml BAG 100 ML IVPB SCH (08:46)
[2020-09-28] MEDS: Senna TAB 8.6 mg TAB PO SCH ×2 (08:46→21:55)
[2020-09-28] MEDS: Budesonide NEB 0.25 MG/2 ML NEB.SOLN INH SCH ×2 (09:49→19:33)
[2020-09-28] MEDS: Morphine 2 MG/ML SYRINGE IV PRN (12:15)
[2020-09-28] MEDS: Collagenase 250 units/gm OINT 1 tube TOPICAL SCH (12:16)
[2020-09-28] MEDS: Morphine ER 30 mg TAB ** extended release PO SCH (16:02)
[2020-09-28] MEDS: Polyethylene Glycol 3350 17 GM PACKET PO SCH (16:41)
[2020-09-28] MEDS: Mometasone 220 MCG MDI INH SCH (19:31)
[2020-09-29] MEDS: Morphine ER 15 mg TAB ** extended release PO SCH ×2 (05:56→20:59)
[2020-09-29] MEDS: Budesonide NEB 0.25 MG/2 ML NEB.SOLN INH SCH ×2 (07:33→19:32)
[2020-09-29] MEDS: Aspirin EC 81 mg TAB.EC (enteric coated) PO SCH (09:10)
[2020-09-29] MEDS: Senna TAB 8.6 mg TAB PO SCH ×2 (09:12→21:00)
[2020-09-29] MEDS: Cholecalciferol (VIT D3) 1,000 unit TAB PO SCH ×2 (09:13→17:09)
[2020-09-29] MEDS: DULoxetine DR 30 mg CAP PO SCH (09:14)
[2020-09-29] MEDS: Collagenase 250 units/gm OINT 1 tube TOPICAL SCH (09:15)
[2020-09-29] MEDS: Polyethylene Glycol 3350 17 GM PACKET PO SCH (09:16)
[2020-09-29] MEDS: Iron Sucrose 200 MG in NS 0.9% 100 ml BAG 100 ML IVPB SCH (10:29)
[2020-09-29] MEDS: Morphine ER 30 mg TAB ** extended release PO SCH (16:09)
[2020-09-29] MEDS: Mometasone 220 MCG MDI INH SCH (19:32)
[2020-09-30] MEDS: Morphine ER 15 mg TAB ** extended release PO SCH ×2 (06:10→21:15)
[2020-09-30] MEDS: Aspirin EC 81 mg TAB.EC (enteric coated) PO SCH (08:33)
[2020-09-30] MEDS: DULoxetine DR 30 mg CAP PO SCH (08:34)
[2020-09-30] MEDS: Senna TAB 8.6 mg TAB PO SCH ×2 (08:34→21:15)
[2020-09-30] MEDS: Cholecalciferol (VIT D3) 1,000 unit TAB PO SCH ×2 (08:40→17:47)
[2020-09-30] MEDS: Iron Sucrose 200 MG in NS 0.9% 100 ml BAG 100 ML IVPB SCH (09:21)
[2020-09-30] MEDS: Budesonide NEB 0.25 MG/2 ML NEB.SOLN INH SCH ×2 (09:29→19:33)
[2020-09-30] MEDS: Polyethylene Glycol 3350 17 GM PACKET PO SCH (09:33)
[2020-09-30] MEDS: Collagenase 250 units/gm OINT 1 tube TOPICAL SCH (10:25)
[2020-09-30] MEDS: Morphine ER 30 mg TAB ** extended release PO SCH (14:34)
[2020-09-30] MEDS: Mometasone 220 MCG MDI INH SCH (19:33)
[2020-10-01] MEDS: Morphine ER 15 mg TAB ** extended release PO SCH (05:56)
[2020-10-01] MEDS: Budesonide NEB 0.25 MG/2 ML NEB.SOLN INH SCH ×2 (07:36→19:38)
[2020-10-01] MEDS: DULoxetine DR 30 mg CAP PO SCH (09:42)
[2020-10-01] MEDS: Collagenase 250 units/gm OINT 1 tube TOPICAL SCH (09:43)
[2020-10-01] MEDS: Cholecalciferol (VIT D3) 1,000 unit TAB PO SCH ×2 (09:44→18:53)
[2020-10-01] MEDS: Aspirin EC 81 mg TAB.EC (enteric coated) PO SCH (09:44)
[2020-10-01] MEDS: Polyethylene Glycol 3350 17 GM PACKET PO SCH (09:46)
[2020-10-01] MEDS: Senna TAB 8.6 mg TAB PO SCH ×2 (09:46→21:20)
[2020-10-01 11:18] LABS: Albumin 2.9 g/dL (3.2-5.2); Albumin/Globulin Ratio 0.9 (1-3); Calcium 8.3 mg/dL (8.6-10.3); EGFR African American 79.8 (>60); Globulin 3.2 g/dL (2-4); Potassium 3.8 mmol/L (3.5-5.0); Total Bilirubin 1.2 mg/dL (0.2-1.0); Total Protein 6.1 g/dL (6.4-8.9)
[2020-10-01] MEDS ORDERED: Morphine ER 15 mg TAB ** extended release PO SCH (14:00)
[2020-10-01] MEDS ORDERED: NS 0.9% 500 ml BAG 500 ML IV ONE (19:05)
[2020-10-01] MEDS: Mometasone 220 MCG MDI INH SCH (19:48)
[2020-10-02 02:29] LABS: ABS Lymphocytes 1.2 10^3/ul (1.0-4.8); ABS Monocytes 0.5 10^3/ul (0-0.8); ABS Neutrophils 7.8 10^3/ul (1.5-7.7); Hematocrit 38 % (42-52); Hemoglobin 11.7 g/dL (14.0-18.0); Lymphocyte % 12.6 %; Mean Corpuscular HGB Conc 31 g/dL (31-36); Mean Corpuscular Hemoglobin 25 pg (27-31); Mean Corpuscular Volume 81 fL (80-94); Mean Platelet Volume 9.3 fL (7.4-10.4); Nucleated Red Blood Cells % 0.1; Platelet Count 219 10^3/uL (150-450); Red Blood Count 4.66 10^6 /uL (4.18-5.48); Red Cell Distribution Width 25 % (10-15); White Blood Count 9.5 10^3/uL (3.5-10.8)
[2020-10-02 02:42] LABS: ALT 9 U/L (7-52); AST 15 U/L (13-39); Alkaline Phosphatase 78 U/L (35-149); Blood Urea Nitrogen 67 mg/dL (6-24); CO2 Carbon Dioxide 33 mmol/L (22-32); Calcium 8.1 mg/dL (8.6-10.3); Chloride 101 mmol/L (101-111); EGFR African American 71.5 (>60); EGFR Non-African American 59.1 (>60); Glucose 296 mg/dL (70-100)
[2020-10-02 02:49] LABS: Anion Gap 12 mmol/L (2-11); Sodium 146 mmol/L (135-145)
[2020-10-02] MEDS: Morphine ER 30 mg TAB ** extended release PO SCH ×2 (03:06→05:00)
[2020-10-02] MEDS ORDERED: NS 0.9% 500 ml BAG 500 ML IV ONE (03:08)
[2020-10-02] MEDS ORDERED: NS 0.9% 1000 ml BAG 1,000 ML IV SCH (03:15)
[2020-10-02 03:35] LABS: % Iron Saturation 8 % (15-55); Iron < 20 ug/dL (50-212); Total Iron Binding Capacity 237 mcg/dL (250-450); Transferrin 169 mg/dL (203-362); Unsaturated Iron Binding < 222 ug/dL
[2020-10-02] MEDS: Budesonide NEB 0.25 MG/2 ML NEB.SOLN INH SCH ×2 (07:25→20:24)
[2020-10-02] MEDS: Aspirin EC 81 mg TAB.EC (enteric coated) PO SCH (07:54)
[2020-10-02] MEDS: DULoxetine DR 30 mg CAP PO SCH (07:54)
[2020-10-02] MEDS: Senna TAB 8.6 mg TAB PO SCH ×2 (08:09→21:01)
[2020-10-02] MEDS: Cholecalciferol (VIT D3) 1,000 unit TAB PO SCH ×2 (08:09→17:23)
[2020-10-02] MEDS: Collagenase 250 units/gm OINT 1 tube TOPICAL SCH (08:10)
[2020-10-02] MEDS: Polyethylene Glycol 3350 17 GM PACKET PO SCH (08:11)
[2020-10-02 08:47] LABS: Calcium 7.7 mg/dL (8.6-10.3); EGFR African American 88.1 (>60); EGFR Non-African American 72.8 (>60); Potassium 3.4 mmol/L (3.5-5.0)
[2020-10-02 12:54] LABS: Urine Appearance Cloudy; Urine Bilirubin Negative (Negative); Urine Blood Negative (Negative); Urine Color Yellow; Urine Glucose Negative (Negative); Urine Ketones Negative (Negative); Urine Nitrite Negative (Negative); Urine Protein Negative (Negative); Urine Specific Gravity 1.012 (1.002-1.030); Urine Urobilinogen Negative (Negative)
[2020-10-02] MEDS: Mometasone 220 MCG MDI INH SCH (20:36)
[2020-10-03] MEDS ORDERED: cefTRIAXone 2 GM ADDV.VIAL 2 GM in NS 0.9% 100 ml BAG 100 ML IV ONE (05:11)
[2020-10-03] MEDS: Polyethylene Glycol 3350 17 GM PACKET PO SCH (08:38)
[2020-10-03] MEDS: Senna TAB 8.6 mg TAB PO SCH ×2 (08:39→21:38)
[2020-10-03] MEDS: DULoxetine DR 30 mg CAP PO SCH (08:39)
[2020-10-03] MEDS: Aspirin EC 81 mg TAB.EC (enteric coated) PO SCH (08:39)
[2020-10-03] MEDS: Cholecalciferol (VIT D3) 1,000 unit TAB PO SCH ×2 (08:40→16:54)
[2020-10-03] MEDS: Budesonide NEB 0.25 MG/2 ML NEB.SOLN INH SCH ×2 (09:08→20:15)
[2020-10-03] MEDS: Collagenase 250 units/gm OINT 1 tube TOPICAL SCH (12:07)
[2020-10-03] MEDS: Morphine ER 30 mg TAB ** extended release PO SCH ×2 (12:11→21:40)
[2020-10-03 12:30] LABS: ABS Monocytes 0.9 10^3/ul (0-0.8); ABS Neutrophils 7.7 10^3/ul (1.5-7.7); Hematocrit 33 % (42-52); Hemoglobin 10.4 g/dL (14.0-18.0); Mean Corpuscular HGB Conc 32 g/dL (31-36); Mean Corpuscular Hemoglobin 25 pg (27-31); Mean Corpuscular Volume 80 fL (80-94); Mean Platelet Volume 9.6 fL (7.4-10.4); Nucleated Red Blood Cells % 0.3; Platelet Count 163 10^3/uL (150-450); Red Cell Distribution Width 24 % (10-15); White Blood Count 9.6 10^3/uL (3.5-10.8)
[2020-10-03 12:36] LABS: Albumin 2.6 g/dL (3.2-5.2); Albumin/Globulin Ratio 0.9 (1-3); Calcium 7.9 mg/dL (8.6-10.3); EGFR African American 107.5 (>60); EGFR Non-African American 88.9 (>60); Magnesium 1.7 mg/dL (1.9-2.7); Total Bilirubin 0.8 mg/dL (0.2-1.0); Total Protein 5.6 g/dL (6.4-8.9)
[2020-10-03] MEDS ORDERED: Perflutren Lipid Microsphere 3 ML VIAL ONE (13:11)
[2020-10-03] MEDS ORDERED: Magnesium Sulf 4 GM/100 ML IV 4,000 MG/100 ML BAG IVPB ONE (16:48)
[2020-10-03] MEDS: NS 0.9% w/ 40 Meq KCL 1000 ML 1,000 ML IV SCH (17:04)
[2020-10-03] MEDS: Mometasone 220 MCG MDI INH SCH (20:17)
[2020-10-04] MEDS: NS 0.9% w/ 40 Meq KCL 1000 ML 1,000 ML IV SCH ×2 (03:09→14:06)
[2020-10-04] MEDS: cefTRIAXone 2 GM ADDV.VIAL 2 GM in NS 0.9% 100 ml BAG 100 ML IV SCH (05:49)
[2020-10-04] MEDS: Morphine ER 30 mg TAB ** extended release PO SCH ×3 (05:49→20:33)
[2020-10-04 06:13] LABS: ABS Lymphocytes 0.6 10^3/ul (1.0-4.8); ABS Monocytes 0.4 10^3/ul (0-0.8); ABS Neutrophils 4.2 10^3/ul (1.5-7.7); Eosinophil % 0.1 %; Hematocrit 30 % (42-52); Hemoglobin 9.4 g/dL (14.0-18.0); Lymphocyte % 11.4 %; Mean Corpuscular HGB Conc 32 g/dL (31-36); Mean Corpuscular Hemoglobin 25 pg (27-31); Mean Corpuscular Volume 80 fL (80-94); Mean Platelet Volume 9.1 fL (7.4-10.4); Nucleated Red Blood Cells % 0.2; Platelet Count 109 10^3/uL (150-450); Red Cell Distribution Width 24 % (10-15); White Blood Count 5.3 10^3/uL (3.5-10.8)
[2020-10-04 06:31] LABS: Albumin 2.4 g/dL (3.2-5.2); Albumin/Globulin Ratio 0.9 (1-3); Calcium 7.6 mg/dL (8.6-10.3); EGFR African American 167.1 (>60); EGFR Non-African American 138.1 (>60); Globulin 2.6 g/dL (2-4); Magnesium 2.1 mg/dL (1.9-2.7); Total Bilirubin 0.9 mg/dL (0.2-1.0)
[2020-10-04] MEDS: Budesonide NEB 0.25 MG/2 ML NEB.SOLN INH SCH ×2 (08:28→20:12)
[2020-10-04] MEDS: Aspirin EC 81 mg TAB.EC (enteric coated) PO SCH (09:30)
[2020-10-04] MEDS: DULoxetine DR 30 mg CAP PO SCH (09:31)
[2020-10-04] MEDS: Senna TAB 8.6 mg TAB PO SCH ×2 (09:31→21:40)
[2020-10-04] MEDS: Polyethylene Glycol 3350 17 GM PACKET PO SCH (09:31)
[2020-10-04] MEDS: Cholecalciferol (VIT D3) 1,000 unit TAB PO SCH ×2 (09:32→17:42)
[2020-10-04] MEDS: Collagenase 250 units/gm OINT 1 tube TOPICAL SCH (09:32)
[2020-10-04] MEDS: Mometasone 220 MCG MDI INH SCH (20:13)
[2020-10-05] MEDS: NS 0.9% w/ 40 Meq KCL 1000 ML 1,000 ML IV SCH ×2 (00:20→19:39)
[2020-10-05] MEDS: Morphine ER 30 mg TAB ** extended release PO SCH ×3 (03:44→21:22)
[2020-10-05] MEDS: cefTRIAXone 2 GM ADDV.VIAL 2 GM in NS 0.9% 100 ml BAG 100 ML IV SCH (05:34)
[2020-10-05] MEDS: Budesonide NEB 0.25 MG/2 ML NEB.SOLN INH SCH ×2 (07:34→19:18)
[2020-10-05] MEDS ORDERED: fentaNYL 100 mcg/2 ml 50 MCG/ML VIAL ONE (10:20)
[2020-10-05] MEDS ORDERED: Midazolam 5 mg/5 ml VIAL 1 mg/ml 5 ml VIAL (5 mg) ONE (10:20)
[2020-10-05] MEDS ORDERED: Naloxone 0.4 mg VIAL 0.4 mg/ml 1 ml VIAL ONE (10:20)
[2020-10-05] MEDS ORDERED: Flumazenil 0.5 mg/5 ml 0.1 MG/ML 5 ml VIAL ONE (10:20)
[2020-10-05] MEDS: Cholecalciferol (VIT D3) 1,000 unit TAB PO SCH ×2 (12:54→18:02)
[2020-10-05] MEDS: Aspirin EC 81 mg TAB.EC (enteric coated) PO SCH (12:54)
[2020-10-05] MEDS: DULoxetine DR 30 mg CAP PO SCH (12:54)
[2020-10-05] MEDS: Polyethylene Glycol 3350 17 GM PACKET PO SCH (12:55)
[2020-10-05] MEDS: Senna TAB 8.6 mg TAB PO SCH ×2 (12:56→21:22)
[2020-10-05] MEDS ORDERED: Albuterol/Ipratropium NEB.SOL (2.5/0.5 MG) 3 ML NEB.SOLN INH PRN (13:23)
[2020-10-05] MEDS: Collagenase 250 units/gm OINT 1 tube TOPICAL SCH (14:51)
[2020-10-05] MEDS: Mometasone 220 MCG MDI INH SCH (19:19)
[2020-10-06] MEDS: Morphine ER 30 mg TAB ** extended release PO SCH ×3 (04:10→21:57)
[2020-10-06] MEDS: cefTRIAXone 2 GM ADDV.VIAL 2 GM in NS 0.9% 100 ml BAG 100 ML IV SCH (05:22)
[2020-10-06] MEDS: NS 0.9% w/ 40 Meq KCL 1000 ML 1,000 ML IV SCH ×2 (05:23→17:46)
[2020-10-06] MEDS: Cholecalciferol (VIT D3) 1,000 unit TAB PO SCH ×3 (07:07→18:23)
[2020-10-06] MEDS: DULoxetine DR 30 mg CAP PO SCH ×2 (07:07→11:44)
[2020-10-06] MEDS: Aspirin EC 81 mg TAB.EC (enteric coated) PO SCH ×2 (07:07→11:41)
[2020-10-06] MEDS: Senna TAB 8.6 mg TAB PO SCH ×3 (07:08→21:56)
[2020-10-06] MEDS: Polyethylene Glycol 3350 17 GM PACKET PO SCH ×2 (07:08→11:46)
[2020-10-06] MEDS: Budesonide NEB 0.25 MG/2 ML NEB.SOLN INH SCH ×2 (07:49→19:10)
[2020-10-06] MEDS: Collagenase 250 units/gm OINT 1 tube TOPICAL SCH (09:46)
[2020-10-06 11:04] LABS: Body Fluid Source Synovial Fluid
[2020-10-06 12:39] LABS: Potassium 4.2 mmol/L (3.5-5.0)
[2020-10-06 12:44] LABS: EGFR Non-African American 143.8 (>60)
[2020-10-06 15:09] LABS: ABS Lymphocytes 0.5 10^3/ul (1.0-4.8); ABS Monocytes 0.3 10^3/ul (0-0.8); ABS Neutrophils 8.2 10^3/ul (1.5-7.7); Eosinophil % 0.1 %; Hematocrit 30 % (42-52); Hemoglobin 9.3 g/dL (14.0-18.0); Lymphocyte % 5.3 %; Mean Corpuscular HGB Conc 31 g/dL (31-36); Mean Corpuscular Hemoglobin 25 pg (27-31); Mean Corpuscular Volume 82 fL (80-94); Mean Platelet Volume 10.3 fL (7.4-10.4); Platelet Count 98 10^3/uL (150-450); Red Blood Count 3.66 10^6 /uL (4.18-5.48); Red Cell Distribution Width 25 % (10-15)
[2020-10-06 15:30] LABS: Albumin 2.3 g/dL (3.2-5.2); Calcium 8.1 mg/dL (8.6-10.3); Potassium 4.5 mmol/L (3.5-5.0); Total Bilirubin 0.6 mg/dL (0.2-1.0)
[2020-10-06 15:36] LABS: C Reactive Protein 164.11 mg/L (<8.01); EGFR African American 167.1 (>60); EGFR Non-African American 138.1 (>60); Globulin 2.4 g/dL (2-4); Total Protein 4.7 g/dL (6.4-8.9)
[2020-10-06] MEDS: Mometasone 220 MCG MDI INH SCH (19:13)
[2020-10-07] MEDS: NS 0.9% w/ 40 Meq KCL 1000 ML 1,000 ML IV SCH (04:05)
[2020-10-07] MEDS: Morphine ER 30 mg TAB ** extended release PO SCH ×2 (04:14→13:46)
[2020-10-07] MEDS: cefTRIAXone 2 GM ADDV.VIAL 2 GM in NS 0.9% 100 ml BAG 100 ML IV SCH (05:39)
[2020-10-07] MEDS: Budesonide NEB 0.25 MG/2 ML NEB.SOLN INH SCH (07:23)
[2020-10-07 09:07] LABS: ABS Lymphocytes 0.5 10^3/ul (1.0-4.8); ABS Monocytes 0.3 10^3/ul (0-0.8); ABS Neutrophils 6.7 10^3/ul (1.5-7.7); Eosinophil % 0.3 %; Hematocrit 29 % (42-52); Hemoglobin 9.4 g/dL (14.0-18.0); Lymphocyte % 7.3 %; Mean Corpuscular HGB Conc 32 g/dL (31-36); Mean Corpuscular Hemoglobin 26 pg (27-31); Mean Corpuscular Volume 80 fL (80-94); Nucleated Red Blood Cells % 0.1; Red Blood Count 3.66 10^6 /uL (4.18-5.48); Red Cell Distribution Width 25 % (10-15); White Blood Count 7.5 10^3/uL (3.5-10.8)
[2020-10-07 09:24] LABS: Albumin 2.4 g/dL (3.2-5.2); Calcium 8.3 mg/dL (8.6-10.3); EGFR Non-African American 167.8 (>60); Globulin 2.4 g/dL (2-4); Potassium 4.6 mmol/L (3.5-5.0); Total Bilirubin 0.6 mg/dL (0.2-1.0); Total Protein 4.8 g/dL (6.4-8.9)
[2020-10-07 09:28] LABS: Mean Platelet Volume 10.3 fL (7.4-10.4); Platelet Count 93 10^3/uL (150-450)
[2020-10-07 09:30] LABS: Polychromasia 1+; Schistocytes 1+
[2020-10-07] MEDS: Polyethylene Glycol 3350 17 GM PACKET PO SCH (09:54)
[2020-10-07] MEDS: Cholecalciferol (VIT D3) 1,000 unit TAB PO SCH (09:57)
[2020-10-07] MEDS: Aspirin EC 81 mg TAB.EC (enteric coated) PO SCH (10:01)
[2020-10-07] MEDS: DULoxetine DR 30 mg CAP PO SCH (10:01)
[2020-10-07] MEDS: Senna TAB 8.6 mg TAB PO SCH (10:02)
[2020-10-07] MEDS: Collagenase 250 units/gm OINT 1 tube TOPICAL SCH (10:07)
[2020-10-07] MEDS ORDERED: Naloxone 0.4 mg VIAL 0.4 mg/ml 1 ml VIAL IV PUSH ONE (12:54)
[2020-10-07 13:38] LABS: Hematocrit 32 % (42-52); Mean Corpuscular HGB Conc 31 g/dL (31-36); Mean Corpuscular Hemoglobin 25 pg (27-31); Mean Corpuscular Volume 81 fL (80-94); Red Blood Count 3.94 10^6 /uL (4.18-5.48); Red Cell Distribution Width 25 % (10-15); White Blood Count 18.2 10^3/uL (3.5-10.8)
[2020-10-07 13:39] LABS: Mean Platelet Volume 10.2 fL (7.4-10.4); Platelet Count 152 10^3/uL (150-450)
[2020-10-07 13:42] LABS: INR 1.63 (0.82-1.09)
[2020-10-07 13:54] LABS: ALT 9 U/L (7-52); Albumin 2.5 g/dL (3.2-5.2); Albumin/Globulin Ratio 0.9 (1-3); Alkaline Phosphatase 83 U/L (35-149); Blood Urea Nitrogen 14 mg/dL (6-24); CO2 Carbon Dioxide 25 mmol/L (22-32); Calcium 8.5 mg/dL (8.6-10.3); Chloride 104 mmol/L (101-111); EGFR Non-African American 96.7 (>60); Globulin 2.7 g/dL (2-4); Glucose 272 mg/dL (70-100); Magnesium 1.4 mg/dL (1.9-2.7); Phosphorus 3.1 mg/dL (2.5-5.0); Sodium 136 mmol/L (135-145); Total Protein 5.2 g/dL (6.4-8.9)
[2020-10-07 13:58] LABS: Anion Gap 7 mmol/L (2-11); Troponin I 0.16 ng/mL (<0.03)
[2020-10-07] MEDS ORDERED: Piperacillin/Tazobac ADVAN 3.375 GM in NS 0.9% 100 ml BAG 100 ML IV ONE (14:06)
[2020-10-07 14:09] LABS: ABS Basophils 0.2 10^3/ul (0-0.2); ABS Lymphocytes 0.2 10^3/ul (1.0-4.8); ABS Monocytes 0.5 10^3/ul (0-0.8); ABS Neutrophils 17.3 10^3/ul (1.5-7.7); Lymphocyte % 1.3 %; Nucleated Red Blood Cells % 0.1
[2020-10-07 14:33] LABS: Potassium Redraw 4.9 mmol/L (3.5-5.0)
[2020-10-07] MEDS ORDERED: Magnesium Sulf 4 GM/100 ML IV 4,000 MG/100 ML BAG IVPB ONE (14:56)
[2020-10-07] MEDS ORDERED: Linezolid 600 MG IVPREMIX(*) 600 MG/300 ML BAG IVPB SCH (15:00)
[2020-10-07] MEDS ORDERED: Zosyn per Pharmacy NOTE FOLLOW UP SCH (15:00)
[2020-10-07] MEDS ORDERED: Atropine 1% (ORAL/SL) 15 ML BTL SL PRN (15:37)
[2020-10-07] MEDS ORDERED: Lorazepam PYXIS KEY PRN (15:54)
[2020-10-07] MEDS: LORazepam 2 mg VIAL 1 ml IV PUSH PRN (23:59)
[2020-10-08] MEDS ORDERED: Pantoprazole VIAL 40 MG VIAL IV SCH (09:00)
[2020-10-09 01:08] VITALS: BP 108/43
[2020-10-09] MEDS: LORazepam 2 mg VIAL 1 ml IV PUSH PRN ×3 (13:16→22:05)
[2020-10-10] MEDS: LORazepam 2 mg VIAL 1 ml IV PUSH PRN ×2 (04:40→12:00)
[2020-10-10] MEDS ORDERED: Lorazepam PYXIS KEY PRN (17:35)
[2020-10-10] MEDS ORDERED: LORazepam 2 mg VIAL 1 ml IV PUSH PRN (17:36)
[2020-10-10] MEDS: LORazepam 2 mg VIAL 1 ml IV PUSH SCH ×2 (18:10→22:14)
[2020-10-10] MEDS: Glycopyrrolate IV 0.2 MG/ML 20 ML VIAL IV SLOW PU SCH (19:12)
[2020-10-10] MEDS: Morphine 10 MG/ML VIAL (1 ml) IV SCH (20:01)
[2020-10-11] MEDS: Glycopyrrolate IV 0.2 MG/ML 20 ML VIAL IV SLOW PU SCH ×2 (00:05→06:12)
[2020-10-11] MEDS: Morphine 10 MG/ML VIAL (1 ml) IV SCH ×7 (00:05→23:56)
[2020-10-11] MEDS: LORazepam 2 mg VIAL 1 ml IV PUSH SCH ×6 (02:11→22:01)
[2020-10-11] MEDS: Glycopyrrolate IV 0.2 MG/ML 1 ML VIAL IV SLOW PU SCH ×3 (12:07→23:56)
[2020-10-12] MEDS: LORazepam 2 mg VIAL 1 ml IV PUSH SCH ×6 (01:35→22:11)
[2020-10-12] MEDS: Morphine 10 MG/ML VIAL (1 ml) IV SCH ×5 (04:29→20:11)
[2020-10-12] MEDS: Glycopyrrolate IV 0.2 MG/ML 1 ML VIAL IV SLOW PU SCH ×3 (06:08→18:07)
[2020-10-13] MEDS: Morphine 10 MG/ML VIAL (1 ml) IV SCH ×6 (00:10→19:36)
[2020-10-13] MEDS: Glycopyrrolate IV 0.2 MG/ML 1 ML VIAL IV SLOW PU SCH ×4 (00:11→18:18)
[2020-10-13] MEDS: LORazepam 2 mg VIAL 1 ml IV PUSH SCH ×6 (02:05→22:08)
[2020-10-14] MEDS: Morphine 10 MG/ML VIAL (1 ml) IV SCH ×4 (00:07→11:54)
[2020-10-14] MEDS: Glycopyrrolate IV 0.2 MG/ML 1 ML VIAL IV SLOW PU SCH ×4 (00:07→16:03)
[2020-10-14] MEDS: LORazepam 2 mg VIAL 1 ml IV PUSH SCH ×6 (02:11→22:16)
[2020-10-14] MEDS ORDERED: Morphine 10 MG/ML VIAL (1 ml) IV SCH (12:00)
[2020-10-15] MEDS: LORazepam 2 mg VIAL 1 ml IV PUSH SCH ×5 (02:02→17:33)
[2020-10-15] MEDS: Glycopyrrolate IV 0.2 MG/ML 1 ML VIAL IV SLOW PU SCH ×4 (05:44→17:32)
== END 2020-10-15 21:55 | disposition expired ==
LOC: ED 07:31 → MEDTELE 11:49 → MED 09-28 10:28 → ICU 10-07 13:01 → MED 10-08 09:56
PROVIDERS: ADMIT Internal Medicine; ATTEND Internal Medicine Hematology & Oncology